=== PATIENT | female | born 1955 | race Caucasian/White ===

== ENCOUNTER → 2017-04-02 | Outpatient (CLI) | payer OTHER ==
[2017-04-02 10:14] LABS: Basophils # (A) 0.1 k/uL (0-0.2); Basophils % (A) 1 %; CH 31.3; CHCM 31.3; Eosinophils # (A) 0.2 k/uL (0-0.7); Eosinophils % (A) 3 %; HCT 45.5 % (34.0-46.0); HDW 2.04; HGB 14.4 gm/dL (11.4-16.0); Luc # (Auto) 0.09; Luc % (Auto) 1; Lymphocytes # (A) 1.6 k/uL (1.0-4.8); Lymphocytes % (A) 20 %; MCH 31.7 pg (25.0-35.0); MCHC 31.6 g/dL (31.0-37.0); MCV 100.4 fL (80.0-100.0); Mean Platelet Volume 7.2; Monocytes # (A) 0.4 k/uL (0-1.0); Monocytes % (A) 5 %; Neutrophils # (A) 5.6 k/uL (1.3-7.7); Neutrophils % (A) 71 %; RBC 4.54 m/uL (3.80-5.40); RDW 13.8 % (11.5-15.5); WBC 7.8 k/uL (3.8-10.6); WBC (Perox) 8.07
[2017-04-02 11:01] LABS: ALT 31 U/L (9-52); AST 27 U/L (14-36); Alkaline Phosphatase 107 U/L (38-126); Anion Gap 6 mmol/L; Blood Urea Nitrogen 14 mg/dL (7-17); Calcium 9.8 mg/dL (8.4-10.2); Carbon Dioxide 29 mmol/L (22-30); Chloride 103 mmol/L (98-107); Cholesterol 166 mg/dL (<200); Glucose 84 mg/dL (74-99); HDL Cholesterol 76 mg/dL (40-60); Non-African American GFR(MDRD) >60 (>60 ml/min/1.73 sqM); Potassium 4.6 mmol/L (3.5-5.1); Sodium 138 mmol/L (137-145); Total Bilirubin 0.8 mg/dL (0.2-1.3); Total Protein 6.7 g/dL (6.3-8.2)
== END | disposition home or self-care (01) ==
LOC: LABWHC1 09:35
PROVIDERS: ATTEND Family Medicine
DX: Z00.00 Encounter for general adult medical examination without abnormal findings (principal)
CPT/HCPCS: 36415; 80053; 80061; 82306; 84443; 85025; 86803

== ENCOUNTER → 2017-06-04 | Outpatient (CLI) | payer OTHER ==
--- NOTE | 2017-06-05 10:16 | MM ---
Reason for exam: screening (asymptomatic). Last mammogram was performed 2 years and 4 months ago. History: Patient is postmenopausal. Family history of breast cancer in mother at age 62. Physical Findings: A clinical breast exam by your physician is recommended on an annual basis and results should be correlated with mammographic findings. MG Screening Mammo w CAD Bilateral CC and MLO view(s) were taken. Prior study comparison: February 16, 2015, mammogram, performed at [facility]. February 09, 2014, mammogram, performed at [facility]. The breast tissue is heterogeneously dense. This may lower the sensitivity of mammography. Finding: There are typically benign round calcifications in both breasts. There is a chronic nodularity in the left breast. There is no discrete abnormality. ASSESSMENT: Benign, BI-RAD 2 RECOMMENDATION: Routine screening mammogram of both breasts in 1 year.
== END | disposition home or self-care (01) ==
LOC: RADMAMWWP 16:35
PROVIDERS: ATTEND Family Medicine
DX: Z12.31 Encounter for screening mammogram for malignant neoplasm of breast (principal)
CPT/HCPCS: 77067

== ENCOUNTER → 2018-06-12 | Outpatient (CLI) | payer OTHER ==
[2018-06-12 11:33] LABS: Basophils # (A) 0.1 k/uL (0-0.2); Basophils % (A) 1 %; Eosinophils # (A) 0.3 k/uL (0-0.7); Eosinophils % (A) 4 %; HCT 48.4 % (34.0-46.0); HGB 14.8 gm/dL (11.4-16.0); Lymphocytes # (A) 1.7 k/uL (1.0-4.8); Lymphocytes % (A) 27 %; MCH 31.2 pg (25.0-35.0); MCHC 30.7 g/dL (31.0-37.0); MCV 101.7 fL (80.0-100.0); Macrocytosis Slight; Mean Platelet Volume 6.1; Monocytes # (A) 0.3 k/uL (0-1.0); Monocytes % (A) 5 %; Neutrophils % (A) 63 %; Platelet Count 308 k/uL (150-450); RBC 4.75 m/uL (3.80-5.40); RDW 12.7 % (11.5-15.5); WBC 6.4 k/uL (3.8-10.6)
[2018-06-12 16:25] LABS: Albumin 4.4 g/dL (3.80-4.90); Albumin/Globulin Ratio 2.1 (1.20-2.10); Anion Gap 9.4 mmol/L (4.00-12.00); Calcium 9.7 mg/dL (8.7-10.3); Carbon Dioxide 29.6 mmol/L (21.6-31.8); Globulin 2.1 g/dL (1.6-3.3); Total Bilirubin 0.6 mg/dL (0.2-1.2); Total Protein 6.5 g/dL (6.2-8.2)
== END | disposition home or self-care (01) ==
LOC: LABWHC1 11:05
PROVIDERS: ATTEND Family Medicine
DX: Z00.00 Encounter for general adult medical examination without abnormal findings (principal)
CPT/HCPCS: 36415; 80053; 80061; 85025

== ENCOUNTER → 2018-06-29 | Outpatient (CLI) | payer OTHER ==
--- NOTE | 2018-06-30 09:56 | MM ---
Reason for exam: screening (asymptomatic). Last mammogram was performed 1 year and 1 month ago. History: Patient is postmenopausal. Family history of breast cancer in mother at age 62. Physical Findings: A clinical breast exam by your physician is recommended on an annual basis and results should be correlated with mammographic findings. MG Screening Mammo w CAD Bilateral CC and MLO view(s) were taken. Prior study comparison: June 04, 2017, bilateral MG screening mammo w CAD. February 16, 2015, mammogram, performed at [facility]. The breast tissue is heterogeneously dense. This may lower the sensitivity of mammography. Stable benign calcifications. There is chronic nodularity bilaterally. No significant changes when compared with prior studies. ASSESSMENT: Benign, BI-RAD 2 RECOMMENDATION: Routine screening mammogram of both breasts in 1 year.
== END | disposition home or self-care (01) ==
LOC: RADMAMWWP 12:31
PROVIDERS: ATTEND Family Medicine
DX: Z12.31 Encounter for screening mammogram for malignant neoplasm of breast (principal)
CPT/HCPCS: 77067

== ENCOUNTER 2019-01-28 08:43 | Inpatient (IN) | payer MEDICARE, OTHER ==
[2019-01-28] MEDS ORDERED: SODIUM CHLORIDE 0.9% 500 ML 500 ML IV STA (08:48)
--- NOTE | 2019-01-28 08:53 | ED ---
General Adult HPI - General Stated complaint: SOB Time Seen by Provider: 01/28/19 08:43 Source: RN notes reviewed - History of Present Illness Initial comments: This is a 63-year-old female presents emergency Department with a complaint of having difficulty breathing. Patient states she is a pack-a-day smoker and drinker at least every other day. Patient states she started on Friday having shortness of breath she went to urgent care today where they gave her breathing treatment and she was only sat 97% on room air; EMS. EMS gave her steroids as well as another breathing treatment she is feeling better but still complains that she short of breath. Patient also complains of chest heaviness which she states has been ongoing as well. Patient denies any fever or chills. Patient states she has a cough but has had no sputum production. Patient denies any abdominal pain patient denies nausea or vomiting. Patient denies any palpitations. Patient denies lightheadedness dizziness or near syncopal episode. Patient denies any leg swelling or calf tenderness. - Related Data Home Medications Medication Instructions Recorded Confirmed Aspirin EC [Ecotrin] 81 mg PO DAILY 09/16/14 01/28/19 Multivitamins, Thera [Theragran] 1 tab PO DAILY 09/16/14 01/28/19 Ascorbic Acid [Vitamin C] 500 mg PO DAILY 01/28/19 01/28/19 D-Methorphan/PE/Acetaminophen 2 tab PO Q4H PRN 01/28/19 01/28/19 [Tylenol Cold Max Day Caplet] Vitamin B Complex 1 cap PO DAILY 01/28/19 01/28/19 Allergies Allergy/AdvReac Type Severity Reaction Status Date / Time No Known Allergies Allergy Verified 01/28/19 09:09 Review of Systems ROS Statement: Those systems with pertinent positive or pertinent negative responses have been documented in the HPI. ROS Other: All systems not noted in ROS Statement are negative. Past Medical History Past Medical History: No Reported History History of Any Multi-Drug Resistant Organisms: None Reported Past Surgical History: No Surgical Hx Reported Additional Past Anesthesia/Blood Transfusion Reaction / Comment(s): NO PREVIOUS ANESTHESIA Past Psychological History: No Psychological Hx Reported Smoking Status: Heavy tobacco smoker Past Alcohol Use History: Occasional Additional Past Alcohol Use History / Comment(s): SMOKES 1 1/2 PPD Past Drug Use History: None Reported - Past Family History Mother Family Medical History: Cancer Additional Family Medical History / Comment(s): BREAST CA Sister(s) Family Medical History: Cancer General Exam - General Exam Comments Initial Comments: GENERAL: Patient is well-developed and well-nourished. Patient is nontoxic and well- hydrated and is in mild distress. ENT: Neck is soft and supple. No significant lymphadenopathy is noted. Oropharynx is clear. Moist mucous membranes. EYES: The sclera were anicteric and conjunctiva were pink and moist. Extraocular movements were intact and pupils were equal round and reactive to light. Eyelids were unremarkable. PULMONARY: Lungs sounds are diminished bilaterally with expiratory wheezing. CARDIOVASCULAR: Patient has a irregular rate and rhythm at a rate of 140 ABDOMEN: Soft and nontender with normal bowel sounds. No palpable organomegaly was noted. There is no palpable pulsatile mass. SKIN: Skin is clear with no lesions or rashes and otherwise unremarkable. NEUROLOGIC: Patient is alert and oriented x3. Cranial nerves II through XII are grossly intact. Motor and sensory are also intact. Normal speech, volume and content. Symmetrical smile. MUSCULOSKELETAL Normal extremities with adequate strength and full range of motion. No lower extremity swelling or edema. No calf tenderness. LYMPHATICS: No significant lymphadenopathy is noted PSYCHIATRIC: Normal psychiatric evaluation. Course Vital Signs 01/28/19 01/28/19 01/28/19 08:47 08:49 08:50 Temperature 98.7 F Pulse Rate 142 H Respiratory 24 Rate Blood Pressure 102/88 102/88 O2 Sat by Pulse 100 98 93 L Oximetry 01/28/19 01/28/19 09:04 09:30 Temperature 98.7 F Pulse Rate 147 H 147 H Respiratory 22 30 H Rate Blood Pressure 127/103 127/103 O2 Sat by Pulse 98 98 Oximetry Medical Decision Making - Medical Decision Making EKG shows atrial fibrillation with rapid ventricular response at 142 bpm QRS is 86 QT interval 316 QTC is 486. Patient's EKG shows no ST segment elevation or depression. CT chest PE shows no acute PE. Patient is atrial fibrillation and was started on Cardizem and placed on hep eliud. I spoke with Dr. Borden she agreed to admit the patient admitted the patient wrote admitting orders I consult cardiology. I continued heparin and Cardizem on the floor as well as albuterol treatments and steroids. - Lab Data Result diagrams: 01/28/19 09:03 01/28/19 09:03 Lab Results 01/28/19 01/28/19 01/28/19 Range/Units 09:03 09:03 09:03 WBC 10.3 (3.8-10.6) k/uL RBC 3.91 (3.80-5.40) m/uL Hgb 12.7 (11.4-16.0) gm/dL Hct 39.7 (34.0-46.0) % MCV 101.5 H (80.0-100.0) fL MCH 32.4 (25.0-35.0) pg MCHC 31.9 (31.0-37.0) g/dL RDW 13.7 (11.5-15.5) % Plt Count 339 (150-450) k/uL Neutrophils % 81 % Lymphocytes % 13 % Monocytes % 4 % Eosinophils % 1 % Basophils % 0 % Neutrophils # 8.3 H (1.3-7.7) k/uL Lymphocytes # 1.4 (1.0-4.8) k/uL Monocytes # 0.4 (0-1.0) k/uL Eosinophils # 0.1 (0-0.7) k/uL Basophils # 0.0 (0-0.2) k/uL Macrocytosis Slight PT (9.0-12.0) sec INR (<1.2) APTT (22.0-30.0) sec D-Dimer (<0.60) mg/L FEU Sodium 140 (137-145) mmol/L Potassium 4.1 (3.5-5.1) mmol/L Chloride 105 (98-107) mmol/L Carbon Dioxide 26 (22-30) mmol/L Anion Gap 9 mmol/L BUN 10 (7-17) mg/dL Creatinine 0.67 (0.52-1.04) mg/dL Est GFR (CKD-EPI)AfAm >90 (>60 ml/min/1.73 sqM) Est GFR (CKD-EPI)NonAf >90 (>60 ml/min/1.73 sqM) Glucose 117 H (74-99) mg/dL Calcium 9.1 (8.4-10.2) mg/dL Magnesium 1.9 (1.6-2.3) mg/dL Total Bilirubin 0.6 (0.2-1.3) mg/dL AST 27 (14-36) U/L ALT 28 (9-52) U/L Alkaline Phosphatase 94 (38-126) U/L Troponin I <0.012 (0.000-0.034) ng/mL Total Protein 6.6 (6.3-8.2) g/dL Albumin 3.9 (3.5-5.0) g/dL Serum Alcohol <10 mg/dL 01/28/19 Range/Units 09:04 WBC (3.8-10.6) k/uL RBC (3.80-5.40) m/uL Hgb (11.4-16.0) gm/dL Hct (34.0-46.0) % MCV (80.0-100.0) fL MCH (25.0-35.0) pg MCHC (31.0-37.0) g/dL RDW (11.5-15.5) % Plt Count (150-450) k/uL Neutrophils % % Lymphocytes % % Monocytes % % Eosinophils % % Basophils % % Neutrophils # (1.3-7.7) k/uL Lymphocytes # (1.0-4.8) k/uL Monocytes # (0-1.0) k/uL Eosinophils # (0-0.7) k/uL Basophils # (0-0.2) k/uL Macrocytosis PT 10.2 (9.0-12.0) sec INR 0.9 (<1.2) APTT 22.9 (22.0-30.0) sec D-Dimer 1.25 H (<0.60) mg/L FEU Sodium (137-145) mmol/L Potassium (3.5-5.1) mmol/L Chloride (98-107) mmol/L Carbon Dioxide (22-30) mmol/L Anion Gap mmol/L BUN (7-17) mg/dL Creatinine (0.52-1.04) mg/dL Est GFR (CKD-EPI)AfAm (>60 ml/min/1.73 sqM) Est GFR (CKD-EPI)NonAf (>60 ml/min/1.73 sqM) Glucose (74-99) mg/dL Calcium (8.4-10.2) mg/dL Magnesium (1.6-2.3) mg/dL Total Bilirubin (0.2-1.3) mg/dL AST (14-36) U/L ALT (9-52) U/L Alkaline Phosphatase (38-126) U/L Troponin I (0.000-0.034) ng/mL Total Protein (6.3-8.2) g/dL Albumin (3.5-5.0) g/dL Serum Alcohol mg/dL Critical Care Time Critical Care Time: Yes Total Critical Care Time: 35 Disposition Clinical Impression: Atrial fibrillation with rapid ventricular response, COPD with acute exacerbation Disposition: ADMITTED IP TO THIS HOSP Referrals: Adrián Farias MD [Primary Care Provider] - 1-2 days Time of Disposition: 10:47
[2019-01-28 09:16] LABS: Basophils % (A) 0 %; Eosinophils # (A) 0.1 k/uL (0-0.7); Eosinophils % (A) 1 %; HCT 39.7 % (34.0-46.0); HGB 12.7 gm/dL (11.4-16.0); Lymphocytes # (A) 1.4 k/uL (1.0-4.8); Lymphocytes % (A) 13 %; MCH 32.4 pg (25.0-35.0); MCHC 31.9 g/dL (31.0-37.0); MCV 101.5 fL (80.0-100.0); Macrocytosis Slight; Mean Platelet Volume 6.7; Monocytes # (A) 0.4 k/uL (0-1.0); Monocytes % (A) 4 %; Neutrophils # (A) 8.3 k/uL (1.3-7.7); Neutrophils % (A) 81 %; Platelet Count 339 k/uL (150-450); RBC 3.91 m/uL (3.80-5.40); RDW 13.7 % (11.5-15.5); WBC 10.3 k/uL (3.8-10.6)
--- NOTE | 2019-01-28 09:21 | XR ---
EXAMINATION TYPE: XR chest 2V DATE OF EXAM: 01/28/2019 COMPARISON: 03/31/2015 TECHNIQUE: PA and lateral views submitted. HISTORY: Shortness of breath FINDINGS: The lungs are clear and there is no pneumothorax, pleural effusion, or focal pneumonia. Coarsened i nterstitium noted with diffuse interstitial pattern. No pneumothorax. Arthropathy of the shoulders. A therosclerotic change aorta. IMPRESSION: 1. Diffuse interstitial pattern most typical of pulmonary fibrosis. Superimposed pneumonitis not excl uded correlate clinically.
[2019-01-28 09:24] LABS: ALT 28 U/L (9-52); AST 27 U/L (14-36); African American GFR (CKD) >90 (>60 ml/min/1.73 sqM); Albumin 3.9 g/dL (3.5-5.0); Alcohol <10 mg/dL; Alkaline Phosphatase 94 U/L (38-126); Anion Gap 9 mmol/L; Blood Urea Nitrogen 10 mg/dL (7-17); Calcium 9.1 mg/dL (8.4-10.2); Carbon Dioxide 26 mmol/L (22-30); Chloride 105 mmol/L (98-107); Glucose 117 mg/dL (74-99); Magnesium 1.9 mg/dL (1.6-2.3); Potassium 4.1 mmol/L (3.5-5.1); Sodium 140 mmol/L (137-145); Total Bilirubin 0.6 mg/dL (0.2-1.3); Total Protein 6.6 g/dL (6.3-8.2)
[2019-01-28 09:29] LABS: INR 0.9 (<1.2); Partial Thromboplastin Time 22.9 sec (22.0-30.0); Prothrombin Time 10.2 sec (9.0-12.0)
[2019-01-28] MEDS ORDERED: DILTIAZEM DRIP BOLUS FROM BAG 1 MG SOLN IV ONE ×2 (09:35→12:35)
[2019-01-28 09:39] LABS: D-Dimer 1.25 mg/L FEU (<0.60)
[2019-01-28] MEDS ORDERED: DILTIAZEM 125 MG in SODIUM CHLORIDE 0.9% 100 ML IV SCH ×2 (09:45→12:45)
[2019-01-28] MEDS ORDERED: HEPARIN SODIUM,PORCINE 5,000 UNIT/ML 1 ML VIAL IV ONE (09:46)
[2019-01-28] MEDS ORDERED: HEPARIN SOD,PORK IN 0.45% NACL 25,000 UNIT in 0.45% NACL 1 250ML.BAG IV SCH (10:00)
--- NOTE | 2019-01-28 10:36 | CT ---
EXAMINATION TYPE: CT chest angio for PE DATE OF EXAM: 01/28/2019 COMPARISON: HISTORY: Trouble breathing CT DLP: 296.1 mGycm CONTRAST: CT chest with contrast and 3D reconstruction with MIP imaging is performed with IV Contrast, patient injected with 100 mL of Isovue 370. Contrast-enhanced CT of the chest was performed through the course of the pulmonary arteries with nakul g and mediastinal window settings submitted. 3D reconstruction with MIP imaging was also performed. PULMONARY ARTERIES: The pulmonary arteries and their major tributaries are patent. I do not see raven dence for sizable filling defect to suggest pulmonary embolic process. LUNGS: Small bilateral pleural effusions noted. Pulmonary venous congestion noted without overt failu re. Underlying emphysematous change. MEDIASTINUM: Thoracic aorta is of normal caliber,however, evaluation is limited given timing of the contrast bolus. If there is concern for thoracic aortic pathology consider EDSON. Correlate clinicall y . The heart is enlarged. No evidence for mediastinal mass. No mediastinal lymph nodes greater gary n 1cm. HILAR STRUCTURES: No evidence for mass. No hilar lymph nodes greater than 1 cm. UPPER ABDOMEN: No significant abnormality is seen. IMPRESSION: 1. No evidence for Pulmonary embolism at this time. 2. Small pleural effusions, cardiomegaly and pulmonary venous congestion.
[2019-01-28] MEDS: IPRATROPIUM-ALBUTEROL 3 ML NEB INHALATION PRN ×2 (11:14→16:19)
[2019-01-28] MEDS ORDERED: DEXTROSE 5% IN WATER 100 ML with AMIODARONE 300 MG IV ONE (15:00)
[2019-01-28] MEDS: METOPROLOL TARTRATE 25 MG TAB PO SCH ×2 (15:04→21:13)
[2019-01-28] MEDS: methylPREDNISolone SOD SUCCI 125 MG/2 ML VIAL IV SCH ×2 (15:04→17:03)
[2019-01-28] MEDS ORDERED: AMIODARONE 360 MG in DEXTROSE 5% IN WATER 200 ML IV ONE ×2 (16:00)
[2019-01-28] MEDS: IPRATROPIUM 0.5 MG/2.5 ML NEBU INHALATION PRN ×2 (16:30→20:09)
[2019-01-28] MEDS ORDERED: ACETAMINOPHEN TAB 325 MG TAB PO PRN (16:32)
[2019-01-28 16:59] LABS: Glucose,Whole Blood 161 mg/dL (75-99)
[2019-01-28] MEDS: INSULIN ASPART (NovoLOG) 100 UNIT/ML VIAL SQ SCH ×2 (17:03→21:12)
[2019-01-28] MEDS: APIXABAN 5 MG TAB PO SCH (17:03)
[2019-01-28] MEDS ORDERED: BUDESONIDE 0.5 MG/2 ML NEBU INHALATION SCH (20:00)
[2019-01-28 21:00] LABS: Glucose,Whole Blood 144 mg/dL (75-99)
[2019-01-28] MEDS ORDERED: APIXABAN 5 MG TAB PO SCH (21:00)
[2019-01-28] MEDS: FUROSEMIDE 10 MG/ML 2 ML VIAL IV SCH (21:11)
--- NOTE | 2019-01-28 22:00 | CONS ---
CONSULTATION Mrs. Menon is a 63-year-old female who is seen for cardiac evaluation. This patient came to the emergency room because she was having difficulty in breathing. She says she has been having heart palpitations for the last couple of days and shortness of breath. The patient has some non-productive cough. She did not really complain of any chest pain. She felt that her heart was racing. Patient was found in the emergency room to be in atrial fibrillation with rapid ventricular response. When the EMS arrived, her oxygen saturation was 97%. The patient does smoke about 1 pack per day and drinks at least every other day. There is no history of prior myocardial infarction, angina, diabetes or hypertension. PAST MEDICAL HISTORY: Includes no history of any major surgeries. REVIEW OF THE SYSTEM: Unremarkable. SOCIAL HISTORY: Patient is a heavy tobacco smoker. PHYSICAL EXAMINATION: Physical examination in the emergency room revealed patient's heart rate to be in the range of 150. Blood pressure was 127/103 mmHg. HEENT examination is negative. Neck is supple. Jugular venous pressure is elevated. Both the carotid pulses are felt. There is no bruit. Chest is symmetrical. Heart the PMI is not felt. First and second heart sounds are normal. No significant murmurs are noted. Lungs examination revealed bilateral few basal rales. ABDOMEN: Soft, probably liver is enlarged 2 fingerbreadths below the right costal margin. Peripheral pulsations are 2+. Electrolytes are normal. The patient's electrolytes are normal. D-dimer was 125 2. First troponin is less than 0.012 and the TSH is 1.790. Patient's echocardiogram reveals normal left ventricular systolic function with possible small area of inferior basal hypokinesia. Chest x-ray is suggestive of congestive cardiac failure. FINAL IMPRESSION: This patient is admitted with atrial fibrillation with a rapid ventricular response. Chest x-ray suggestive of associated mild heart failure. CT scan is negative for pulmonary embolism and suggest pulmonary vascular congestion. The patient's overall normal left ventricular systolic function was normal. The patient received Cardizem bolus and drip in the emergency room without any significant effect on the heart rate. The patient received additional bolus of Cardizem and increased the drip to 10 mg/minute, but patient persists to be in rapid rate. In view of that, we will start the patient on IV Cardizem and start the Lopressor 25 mg b.i.d. We will start the patient on p.o. Eliquis 5 mg b.i.d. Depending upon the response, further recommendations will be made. MMODL / IJN: [id number] /
[2019-01-28] MEDS: AMIODARONE 300 MG in DEXTROSE 5% IN WATER 250 ML IV SCH ×2 (22:37)
[2019-01-28] MEDS: methylPREDNISolone SOD SUCCI 40 MG/ML 1 ML VIAL IV SCH (23:06)
[2019-01-28] MEDS: MELATONIN 3 MG TABLET PO PRN (23:06)
--- NOTE | 2019-01-29 01:03 | HP ---
HISTORY AND PHYSICAL DATE OF ADMISSION: January 28, 2019. PRESENTING COMPLAINT: Short of breath, heart racing. HISTORY OF PRESENTING COMPLAINT: This is a pleasant 63-year-old patient of Dr. Farias. The patient is a long-standing smoker. The patient presents with progressive short of breath, some wheezing, has a slight cough with clear sputum, but she is very short of breath. Also having some palpitations. No chest pain per se. Decided to present to the ER. The patient is found to be in atrial fibrillation with rapid ventricular rate. Chest x-ray also showed some fluid overload. The patient is put on a Cardizem drip. Cardiology was consulted. Also put on bronchodilators. The patient's significant other is at the bedside. The patient is still visibly short of breath at rest. REVIEW OF SYSTEMS: CONSTITUTIONAL: Tired. HEENT: None. RESPIRATORY: As above. CARDIOVASCULAR as above. GASTROINTESTINAL: Heartburn. GENITOURINARY: None. MUSCULOSKELETAL none. DERMATOLOGICAL, HEMATOLOGIC, LYMPHATIC: none. PSYCHIATRY none. NEUROLOGICAL none. PAST MEDICAL HISTORY: GERD. PAST SURGICAL HISTORY: Tubal ligation, colonoscopy. SOCIAL HISTORY: Lives with significant other. Smoking for close to 50 years, a pack a day. Drinks 2 gin and tonic at night. Occasionally marijuana. FAMILY HISTORY: Diabetes and breast cancer. HOME MEDICATIONS: Vitamin B complex 1 capsule p.o. daily, Theragran 1 tablet p.o. daily, Tylenol cold 2 tablets q.4 p.r.n., Aspirin 81 mg daily and Vitamin C 500 mg p.o. daily. ALLERGIES: None. PHYSICAL EXAMINATION: VITAL SIGNS: Vital signs on presentation: Temperature 98.7, pulse 142, respiration 24, blood pressure 102/88, pulse ox 98% on 4 L. GENERAL APPEARANCE: Slightly anxious. EYES: Pupils equal. Conjunctivae normal. HEENT: External appearance of nose and ears normal. Oral cavity normal. Neck: JVD unable to assess. Mass not palpable. RESPIRATORY: Effort increased, accessory muscles are working. Patient not able to speak in full sentences. Diminished breath sounds. Prolonged expiration. Some basal crackles. CARDIOVASCULAR: Heart sounds irregular. No edema. ABDOMEN: Soft, nontender. Liver and spleen not palpable. Lymphatics: No lymph nodes palpable in the neck, axillae or groin. Psychiatry alert, oriented x3. Mood and affect slightly anxious. NEUROLOGICAL: Pupils equal. Cranial nerves grossly intact. Power and sensation grossly intact. INVESTIGATIONS: White count 10.3, hemoglobin 12.7, potassium 4.1, BUN 10, creatinine 0.67 Accu-Cheks 101, 167, 144. Troponin less than 0.012. ProBNP 3540. TSH is 1.9. EKG tracing personally reviewed by me shows atrial fibrillation with rapid ventricular rate. Chest x-ray film personally reviewed by me shows borderline cardiomegaly and some pulmonary edema. ASSESSMENT: 1. Acute severe chronic obstructive pulmonary disease exacerbation in a current smoker. 2. Chronic nicotine dependence. Patient is an active cigarette smoker. 3. New onset atrial fibrillation with rapid ventricular rate. 4. Acute congestive heart failure exacerbation, ejection fraction unknown. 5. Gastroesophageal reflux disease. PLAN: Patient was seen earlier by Cardiology, who put him on amiodarone and also started the patient on Eliquis. Patient also was started on bronchodilators, inhaled and IV steroids. Lovenox. The patient is already on Eliquis, has helped, was DVT prophylaxis II. Care was discussed at length with the patient and significant other at the bedside. Smoking cessation counseling. This was done with the patient. Nicotine patch has been given. More than 3 minutes was spent on this aspect of the case. Copy to Dr. Farias. MMCONOR / BURAK: [id number] /
[2019-01-29] MEDS: NICOTINE 21MG/24HR PATCH TRANSDERM SCH ×2 (05:41→09:00)
[2019-01-29 06:11] LABS: Glucose,Whole Blood 123 mg/dL (75-99)
[2019-01-29] MEDS: INSULIN ASPART (NovoLOG) 100 UNIT/ML VIAL SQ SCH ×4 (06:21→21:50)
[2019-01-29] MEDS: BUDESONIDE 1 MG/2 ML NEBU INHALATION SCH ×2 (06:28→19:32)
[2019-01-29] MEDS: IPRATROPIUM-ALBUTEROL 3 ML NEB INHALATION PRN ×3 (06:28→15:45)
[2019-01-29] MEDS: METOPROLOL TARTRATE 25 MG TAB PO SCH (09:00)
[2019-01-29] MEDS: FUROSEMIDE 10 MG/ML 2 ML VIAL IV SCH (09:00)
[2019-01-29] MEDS: APIXABAN 5 MG TAB PO SCH ×2 (09:00→20:18)
[2019-01-29] MEDS: methylPREDNISolone SOD SUCCI 40 MG/ML 1 ML VIAL IV SCH ×3 (09:00→22:58)
[2019-01-29] MEDS: AMIODARONE 300 MG in DEXTROSE 5% IN WATER 250 ML IV SCH ×2 (09:18)
--- NOTE | 2019-01-29 10:34 | ECHOF ---
Referral Reason:LV fxn MEASUREMENTS -------- HEIGHT: 162.6 cm WEIGHT: 57.2 kg BP: 116/94 RVIDd: 2.1 cm (< 3.3) IVSd: 1.3 cm (0.6 - 1.1) LVIDd: 2.4 cm (3.9 - 5.3) LVPWd: 1.2 cm (0.6 - 1.1) IVSs: 1.5 cm LVIDs: 2.0 cm LVPWs: 1.7 cm LA Diam: 3.0 cm (2.7 - 3.8) LAESV Index (A-L): 30.00 ml/m Ao Diam: 3.2 cm (2.0 - 3.7) AV Cusp: 1.6 cm (1.5 - 2.6) MV EXCURSION: 16.356 mm (> 18.000) MV EF SLOPE: 306 mm/s (70 - 150) EPSS: 0.2 cm AV maxP.52 mmHg AV meanP.16 mmHg RAP: 15.00 mmHg RVSP: 55.10 mmHg FINDINGS -------- Atrial fibrillation. This was a technically adequate study. The left ventricular size is normal. There is mild concentric left ventricular hypertrophy. Overa ll left ventricular systolic function is normal with, an EF between 55 - 60 %. Basal inferior LV wa ll motion is hypokinetic. Basal inferoseptal LV wall motion is hypokinetic. The right ventricle is normal in size. LA is midly dilated 29-33ml/m2. The right atrium is normal in size. Interatrial and interventricular septum intact. There is mild aortic valve sclerosis. There is mild aortic stenosis present. Peak/mean gradient a cross the Aortic Valve is 15.52mmHg / 6.16mmHg. The mitral valve leaflets are mildly thickened. Mild mitral annular calcification present. Modera te mitral regurgitation is present. Mild tricuspid regurgitation present. There is moderate to severe pulmonary hypertension. The rig ht ventricular systolic pressure, as measured by Doppler, is 55.10mmHg. Trace/mild (physiologic) pulmonic regurgitation. The aortic root size is normal. The inferior vena cava is dilated with poor inspiratory collapse which is consistent with estimated r ight atrial pressure of 15 mmHg. There is no pericardial effusion. CONCLUSIONS -------- 1. Atrial fibrillation. 2. This was a technically adequate study. 3. The left ventricular size is normal. 4. There is mild concentric left ventricular hypertrophy. 5. Overall left ventricular systolic function is normal with, an EF between 55 - 60 %. 6. Basal inferior LV wall motion is hypokinetic. 7. Basal inferoseptal LV wall motion is hypokinetic. 8. The right ventricle is normal in size. 9. LA is midly dilated 29-33ml/m2. 10. The right atrium is normal in size. 11. Interatrial and interventricular septum intact. 12. There is mild aortic valve sclerosis. 13. There is mild aortic stenosis present. 14. Peak/mean gradient across the Aortic Valve is 15.52mmHg / 6.16mmHg. 15. The mitral valve leaflets are mildly thickened. 16. Mild mitral annular calcification present. 17. Moderate mitral regurgitation is present. 18. Mild tricuspid regurgitation present. 19. There is moderate to severe pulmonary hypertension. 20. The right ventricular systolic pressure, as measured by Doppler, is 55.10mmHg. 21. Trace/mild (physiologic) pulmonic regurgitation. 22. The aortic root size is normal. 23. The inferior vena cava is dilated with poor inspiratory collapse which is consistent with estimat ed right atrial pressure of 15 mmHg. 24. There is no pericardial effusion. [employer]: Elena Chan RDCS
[2019-01-29 11:46] LABS: Glucose,Whole Blood 148 mg/dL (75-99)
[2019-01-29] MEDS: AMIODARONE 200 MG TAB PO SCH ×2 (12:50→20:18)
--- NOTE | 2019-01-29 15:47 | P.PN ---
Subjective Progress Note Date: 01/29/19 This is a 63-year-old female who presented to the emergency room with symptoms of difficulty in breathing. She also noticed himself to be having palpitations with the associated shortness of breath. She was found in the emergency room to be in atrial fibrillation with rapid ventricular response. Patient does smoke a pack of cigarettes per day, no history of diabetes or hypertension. At the time of her examination today, patient continues to be in atrial fibrillation her heart rate is in the low 100 range, we will increase her dose of Lasix to 40 mg one tablet by mouth twice a day, IV amiodarone has infuse, we will start the patient on 400 mg by mouth amiodarone twice a day. Echo cardiac gram with Doppler study was performed which revealed a normal left ventricular systolic function with moderate mitral regurgitation. Moderate to severe pulmonary hypertension. Objective - Vital Signs Vital signs: Vital Signs Temp 97.6 F 01/29/19 15:33 Pulse 117 H 01/29/19 15:33 Resp 20 01/29/19 15:33 BP 121/62 01/29/19 15:33 Pulse Ox 95 01/29/19 15:33 Intake & Output 01/28/19 01/29/19 01/29/19 18:59 06:59 18:59 Intake Total 1106.06 245 970 Output Total 800 800 Balance 1106.06 -555 170 Weight 57.153 kg 59.3 kg Intake: IV 40 Invasive Line 1 10 Invasive Line 2 30 Intake, IV Titration 26.06 125 250 Amount Amiodarone 300 mg In 125 250 Dextrose 5% in Water 250 ml @ 0.5 MG/MIN 25 mls/hr IV .Q10H PALLAVI Rx#: [id number] Heparin Sod,Pork in 0.45% 26.06 NaCl 25,000 unit In 0.45 % NaCl 1 250ml.bag @ 12 UNITS/KG/HR 6.858 mls/hr IV .Q24H PALLAVI Rx#: [id number] Oral 1040 120 720 Output: Urine 800 800 Other: Voiding Method Toilet # Voids 1 2 2 # Bowel Movements 0 - Exam PHYSICAL EXAMINATION: GENERAL: 63-year-old female in no acute distress at the time of my examination HEENT: Head is atraumatic, normocephalic. Pupils equal, round. Sclera anicteric. Conjunctiva are clear. Mucous membranes of the mouth are moist. Neck is supple. There is no elevated jugular venous pressure.] bruit is heard. HEART EXAMINATION: Heart S1, S2 systolic murmur is heard normal. . CHEST EXAMINATION: Lungs are clear to auscultation and precussion. No chest wall tenderness is noted on palpation or with deep breathing. ABDOMEN: Soft, nontender. Bowel sounds are heard. Positive organomegaly noted. EXTREMITIES: 2+ peripheral pulses with no evidence of peripheral edema and no calf tenderness noted. NEUROLOGIC patient is awake, alert and oriented ?-3. . - Labs CBC & Chem 7: 01/28/19 09:03 01/28/19 09:03 Labs: Abnormal Lab Results - Last 24 Hours (Table) 01/28/19 01/28/19 01/29/19 Range/Units 16:57 20:58 06:09 POC Glucose (mg/dL) 161 H 144 H 123 H (75-99) mg/dL 01/29/19 Range/Units 11:44 POC Glucose (mg/dL) 148 H (75-99) mg/dL Assessment and Plan Plan: Assessment and plan #1 persistent atrial fibrillation #2 diastolic congestive heart failure acute on chronic, LV function normal #3 nicotine dependence #4 EtOH use Plan We will start the patient on oral amiodarone 400 mg one tablet by mouth twice a day, increase the dose of Lasix to 40 mg IV twice a day, continue to monitor the intake and output along with daily weights, and daily lytes BUN and creatinine. DNP note has been reviewed, I agree with a documented findings and plan of care. Patient was seen and examined.
--- NOTE | 2019-01-29 16:55 | CDI ---
Documentation Clarification Form Date: 01/29/2019 4:43:49 PM From: Ryanne Blake RN, CCDS Admit Date: 01/29/2019 11:44:00 AM Patient Name: Aide Menon Visit Number: [id number] ATTENTION: The Clinical Documentation Specialists (CDI) and [facility] Coding Staff appreciate your assistance in clarifying documentation. Please respond to the clarification below the line at the bottom and electronically sign. The CDI & [facility] Coding staff will review the response and follow-up if needed. Please note: Queries are made part of the Legal Health Record. If you have any questions, please contact the author of this message via ITS. Dr. Kt Woodard History/Risk Factors: COPD, CHF, Atrial Fib, GERD Tobacco use: current smoker Home oxygen: none Clinical Indicators: 01/28/19 H&P: "The patient is still visibly short of breath at rest" Vital signs: Temp 98.7, HR 142, RR 24, B/P 102/88, SPO2 98% 4L NC Pulse oximetry:98% 4L NC Lung/Breathing assessment: "The patient is a long- standing smoker. The patient presents with progressive short of breath, some wheezing, has a slight cough with clear sputum, but she is very short of breath." Treatment: Breathing tx: Duoneb QID, Pulmicort BID, Atrovent QID PRN Lasix 40mg IVP Q 12 hrs Tapering Dose IVP Solumedrol Pulse ox per unit protocol O2: maintained on 4L nasal cannula In your professional opinion, can you please clarify if these findings signify one of the following conditions? Acuity Acute Chronic Acute on Chronic Specificity Respiratory Failure (further specify (if known)): With hypercapnia? (pCO2 >50 and pH <7.35) With hypoxia? (pO2 <60 mm Hg or SpO2 <91% on room air) Respiratory Distress Respiratory Insufficiency Other Diagnosis, please specify Unable to determine (Last Revision: August 2017) no acute respiratory failure MTDD
[2019-01-29 16:59] LABS: Glucose,Whole Blood 137 mg/dL (75-99)
[2019-01-29] MEDS: METOPROLOL TARTRATE 50 MG TAB PO SCH (18:25)
[2019-01-29] MEDS: FUROSEMIDE 10 MG/ML 4 ML VIAL IV SCH (20:19)
[2019-01-29 20:30] LABS: Glucose,Whole Blood 165 mg/dL (75-99)
[2019-01-29 21:50] LABS: Glucose,Whole Blood 209 mg/dL (75-99)
--- NOTE | 2019-01-29 22:32 | P.PN ---
Progress Note - Text Progress Note Date: 01/29/19 Presenting complaint: Short of breath Interval history: Patient blood with severe COPD exacerbation. Also atrial fibrillation with a rapid ventricular rate. And also found to be in CHF exacerbation. Patient is a smoker. Today-wheezing is a bit better., Still short of breath. Did eat some food. Sitting up. With nasal cannula. Review of systems: Was done for constitutional, cardiovascular, GI, pulmonary. relevant finding as above Active Medications Acetaminophen (Tylenol Tab) 650 mg PO Q6HR PRN PRN Reason: Fever and/ or Pain Last Admin: 01/28/19 17:03 Dose: 650 mg Documented by: Albuterol/Ipratropium (Duoneb 0.5 Mg-3 Mg/3 Ml Soln) 3 ml INHALATION RT-QID PRN PRN Reason: Shortness Of Breath Or Wheezing Last Admin: 01/29/19 15:45 Dose: 3 ml Documented by: Amiodarone HCl (Cordarone) 400 mg PO BID [facility] Last Admin: 01/29/19 20:18 Dose: 400 mg Documented by: Apixaban (Eliquis) 5 mg PO BID [facility] Last Admin: 01/29/19 20:18 Dose: 5 mg Documented by: Budesonide (Pulmicort) 1 mg INHALATION RT-BID [facility] Last Admin: 01/29/19 19:32 Dose: 1 mg Documented by: Furosemide (Lasix) 40 mg IV Q12HR [facility] Last Admin: 01/29/19 20:19 Dose: 40 mg Documented by: Insulin Aspart (Novolog) 0 unit SQ [facility]; Protocol Last Admin: 01/29/19 21:50 Dose: 6 unit Documented by: Ipratropium [place] (Atrovent Nebulized) 0.5 mg INHALATION RT-QID PRN PRN Reason: Shortness Of Breath Or Wheezing Last Admin: 01/28/19 20:09 Dose: 0.5 mg Documented by: Melatonin (Melatonin) 3 mg PO HS PRN PRN Reason: Insomnia Last Admin: 01/28/19 23:06 Dose: 3 mg Documented by: Methylprednisolone Sodium Succinate (Solu-Medrol) 40 mg IV Q8HR [facility] Last Admin: 01/29/19 17:24 Dose: 40 mg Documented by: Metoprolol Tartrate (Lopressor) 50 mg PO BID [facility] Last Admin: 01/29/19 18:25 Dose: 50 mg Documented by: Nicotine (Habitrol 21mg/24hr Patch) 1 patch TRANSDERM DAILY [facility] Last Admin: 01/29/19 09:00 Dose: 1 patch Documented by: Spironolactone (Aldactone) 25 mg PO DAILY [facility] Physical examination: VITAL SIGNS: 98, 112, 20, 139 with 77, 95% on 4 L GENERAL: Propped up, still short of breath at rest. EYES: Pupils equal. Conjunctiva normal. HEENT: External appearance of nose and ears normal, oral cavity grossly normal. NECK: JVD not raised; masses not palpable. HEART: Heart sounds irregular; no edema. LUNGS:[ Respiratory rate increased, diminished breath sounds prolonged expiration, short of breath at rest not unable to speak in full sentences. ABDOMEN: Soft, nontender, liver spleen not palpable, no masses palpable. PSYCH: [Alert and oriented x3; mood and affect anxious. Investigations: Accu-Cheks noted 2-D echo-EF 55-60%, wall motion abnormality, moderate mitral regurgitation, moderate to severe pulmonary hypertension Assessment: -Acute severe COPD exacerbation in a current smoker, slow to respond -Chronic nicotine dependence patient cigarette smoker -New onset atrial fibrillation with rapid ventricular rate, still rate uncontrolled -Acute congestive heart failure exacerbation, from diastolic dysfunction EF 55-6 0% -Wall motion abnormality on the 2-D echo patient will need cardiac catheterization at some point -Moderate mitral regurgitation, nontraumatic -Moderate to severe secondary probably hypertension due to COPD -GERD Plan: Patient was started on oral amiodarone by cardiology. Keep on IV Lasix. Continue with bronchodilators steroids in distress. Care was discussed with the patient.
[2019-01-29] MEDS: MELATONIN 3 MG TABLET PO PRN (22:58)
[2019-01-30 06:24] LABS: Glucose,Whole Blood 140 mg/dL (75-99)
[2019-01-30] MEDS: INSULIN ASPART (NovoLOG) 100 UNIT/ML VIAL SQ SCH ×4 (06:41→21:32)
[2019-01-30] MEDS: IPRATROPIUM-ALBUTEROL 3 ML NEB INHALATION PRN ×3 (07:20→19:34)
[2019-01-30] MEDS: BUDESONIDE 1 MG/2 ML NEBU INHALATION SCH ×2 (07:20→19:34)
[2019-01-30] MEDS: NICOTINE 21MG/24HR PATCH TRANSDERM SCH (09:26)
[2019-01-30] MEDS: AMIODARONE 200 MG TAB PO SCH ×2 (09:26→20:40)
[2019-01-30] MEDS: methylPREDNISolone SOD SUCCI 40 MG/ML 1 ML VIAL IV SCH ×2 (09:26→20:40)
[2019-01-30] MEDS: APIXABAN 5 MG TAB PO SCH ×2 (09:27→20:40)
[2019-01-30] MEDS: SPIRONOLACTONE 25 MG TAB PO SCH (09:28)
[2019-01-30] MEDS: METOPROLOL TARTRATE 50 MG TAB PO SCH ×2 (09:28→20:40)
[2019-01-30] MEDS: FUROSEMIDE 10 MG/ML 4 ML VIAL IV SCH (09:28)
[2019-01-30 12:35] LABS: Glucose,Whole Blood 147 mg/dL (75-99)
--- NOTE | 2019-01-30 13:07 | P.PN ---
Subjective Progress Note Date: 01/30/19 This is a 63-year-old female who presented to the emergency room with symptoms of difficulty in breathing. She also noticed himself to be having palpitations with the associated shortness of breath. She was found in the emergency room to be in atrial fibrillation with rapid ventricular response. Patient does smoke a pack of cigarettes per day, no history of diabetes or hypertension. At the time of her examination today, patient continues to be in atrial fibrillation her heart rate is in the low 100 range, we will increase her dose of Lasix to 40 mg one tablet by mouth twice a day, IV amiodarone has infuse, we will start the patient on 400 mg by mouth amiodarone twice a day. Echo cardiac gram with Doppler study was performed which revealed a normal left ventricular systolic function with moderate mitral regurgitation. Moderate to severe pulmonary hypertension. 01/30/2019 A shunt was seen and examined this morning feels much better overall. Blood pressure 130/70, heart rate remaining mostly in the 1 teens, 90s, 95% on room air. We'll continue the amiodarone at 400 mg one tablet by mouth twice a day along with the Eliquis, discontinue the IV Lasix today and put the patient on oral diuretics, continue metoprolol and Aldactone. Objective - Vital Signs Vital signs: Vital Signs Temp 98.0 F 01/30/19 08:00 Pulse 121 H 01/30/19 12:00 Resp 16 01/30/19 12:00 BP 130/75 01/30/19 12:00 Pulse Ox 95 01/30/19 12:00 Intake & Output 01/29/19 01/30/19 01/30/19 18:59 06:59 18:59 Intake Total 970 480 Output Total 1700 1000 Balance -730 -1000 480 Weight 58.4 kg Intake: Intake, IV Titration 250 Amount Amiodarone 300 mg In 250 Dextrose 5% in Water 250 ml @ 0.5 MG/MIN 25 mls/hr IV .Q10H [facility] Rx#: [id number] Oral 720 480 Output: Urine 1700 1000 Other: Voiding Method Toilet # Voids 2 2 - Exam PHYSICAL EXAMINATION: GENERAL: 63-year-old female in no acute distress at the time of my examination HEENT: Head is atraumatic, normocephalic. Pupils equal, round. Sclera anicteric. Conjunctiva are clear. Mucous membranes of the mouth are moist. Neck is supple. There is no elevated jugular venous pressure.] bruit is heard. HEART EXAMINATION: Heart S1, S2 systolic murmur is heard normal. . CHEST EXAMINATION: Lungs are clear to auscultation and precussion. No chest wall tenderness is noted on palpation or with deep breathing. ABDOMEN: Soft, nontender. Bowel sounds are heard. Positive organomegaly noted. EXTREMITIES: 2+ peripheral pulses with no evidence of peripheral edema and no calf tenderness noted. NEUROLOGIC patient is awake, alert and oriented ?-3. . - Labs CBC & Chem 7: 01/28/19 09:03 01/28/19 09:03 Labs: Abnormal Lab Results - Last 24 Hours (Table) 01/29/19 01/29/19 01/29/19 Range/Units 16:57 20:29 21:47 POC Glucose (mg/dL) 137 H 165 H 209 H (75-99) mg/dL 01/30/19 01/30/19 Range/Units 06:22 11:34 POC Glucose (mg/dL) 140 H 147 H (75-99) mg/dL Assessment and Plan Plan: Assessment and plan #1 persistent atrial fibrillation #2 diastolic congestive heart failure acute on chronic, LV function normal #3 nicotine dependence #4 EtOH use Plan We will continue with the amiodarone at 400 mg twice a day, continue anticoagulation, change Lasix over to oral from tomorrow morning. DNP note has been reviewed, I agree with a documented findings and plan of care. Patient was seen and examined.
--- NOTE | 2019-01-30 15:46 | P.PN ---
Progress Note - Text Progress Note Date: 01/30/19 Presenting complaint: Short of breath Interval history: Patient blood with severe COPD exacerbation. Also atrial fibrillation with a rapid ventricular rate. And also found to be in CHF exacerbation. Patient is a smoker. Today-breathing somewhat better. Less wheezing. No chest pain. Did tolerate her diet. Sitting up in bed. Review of systems: Was done for constitutional, cardiovascular, GI, pulmonary. relevant finding as above Active Medications Acetaminophen (Tylenol Tab) 650 mg PO Q6HR PRN PRN Reason: Fever and/ or Pain Last Admin: 01/28/19 17:03 Dose: 650 mg Documented by: Albuterol/Ipratropium (Duoneb 0.5 Mg-3 Mg/3 Ml Soln) 3 ml INHALATION RT-QID PRN PRN Reason: Shortness Of Breath Or Wheezing Last Admin: 01/30/19 11:21 Dose: 3 ml Documented by: Amiodarone HCl (Cordarone) 400 mg PO BID [facility] Last Admin: 01/30/19 09:26 Dose: 400 mg Documented by: Apixaban (Eliquis) 5 mg PO BID [facility] Last Admin: 01/30/19 09:27 Dose: 5 mg Documented by: Budesonide (Pulmicort) 1 mg INHALATION RT-BID [facility] Last Admin: 01/30/19 07:20 Dose: 1 mg Documented by: Furosemide (Lasix) 40 mg PO BID@0900,1600 [facility] Insulin Aspart (Novolog) 0 unit SQ ACHS [facility]; Protocol Last Admin: 01/30/19 12:54 Dose: 2 unit Documented by: Ipratropium [place] (Atrovent Nebulized) 0.5 mg INHALATION RT-QID PRN PRN Reason: Shortness Of Breath Or Wheezing Last Admin: 01/28/19 20:09 Dose: 0.5 mg Documented by: Melatonin (Melatonin) 3 mg PO HS PRN PRN Reason: Insomnia Last Admin: 01/29/19 22:58 Dose: 3 mg Documented by: Methylprednisolone Sodium Succinate (Solu-Medrol) 40 mg IV Q8HR [facility] Last Admin: 01/30/19 09:26 Dose: 40 mg Documented by: Metoprolol Tartrate (Lopressor) 50 mg PO BID [facility] Last Admin: 01/30/19 09:28 Dose: 50 mg Documented by: Nicotine (Habitrol 21mg/24hr Patch) 1 patch TRANSDERM DAILY [facility] Last Admin: 01/30/19 09:26 Dose: 1 patch Documented by: Spironolactone (Aldactone) 25 mg PO DAILY [facility] Last Admin: 01/30/19 09:28 Dose: 25 mg Documented by: Physical examination: VITAL SIGNS: 98, 111, 16, 124/72, 97% on 3 L GENERAL: Propped up, still short of breath at rest. EYES: Pupils equal. Conjunctiva normal. HEENT: External appearance of nose and ears normal, oral cavity grossly normal. NECK: JVD not raised; masses not palpable. HEART: Heart sounds irregular; no edema. LUNGS:[ Respiratory rate increased, diminished breath sounds prolonged expiration, basilar crackles ABDOMEN: Soft, nontender, liver spleen not palpable, no masses palpable. PSYCH: [Alert and oriented x3; mood and affect anxious. Investigations: Accu-Cheks noted 2-D echo-EF 55-60%, wall motion abnormality, moderate mitral regurgitation, moderate to severe pulmonary hypertension Assessment: -Acute severe COPD exacerbation in a current smoker, slow to respond -Chronic nicotine dependence patient cigarette smoker -New onset atrial fibrillation with rapid ventricular rate, still rate uncontrolled -Acute congestive heart failure exacerbation, from diastolic dysfunction EF 55- 60% -Wall motion abnormality on the 2-D echo patient will need cardiac catheterization at some point -Moderate mitral regurgitation, nontraumatic -Moderate to severe secondary probably hypertension due to COPD -GERD Plan: Seen by cardio G. Switched to by mouth Lasix. On amiodarone. Bronchodilator dilator steroids to continue. Breathing is started to improve. Encouraged to be out of bed.
[2019-01-30] MEDS ORDERED: methylPREDNISolone SOD SUCCI 40 MG/ML 1 ML VIAL IV SCH (16:00)
[2019-01-30 16:46] LABS: Glucose,Whole Blood 125 mg/dL (75-99)
[2019-01-30] MEDS: FUROSEMIDE 40 MG TAB PO SCH (17:02)
[2019-01-30 21:29] LABS: Glucose,Whole Blood 170 mg/dL (75-99)
[2019-01-30] MEDS: MELATONIN 3 MG TABLET PO PRN (23:40)
[2019-01-31 06:15] LABS: Glucose,Whole Blood 119 mg/dL (75-99)
[2019-01-31] MEDS: INSULIN ASPART (NovoLOG) 100 UNIT/ML VIAL SQ SCH ×2 (06:16→11:48)
[2019-01-31 07:47] VITALS: RESP 16; TEMP 97.9
[2019-01-31] MEDS: NICOTINE 21MG/24HR PATCH TRANSDERM SCH (08:03)
[2019-01-31] MEDS: AMIODARONE 200 MG TAB PO SCH (08:03)
[2019-01-31] MEDS: methylPREDNISolone SOD SUCCI 40 MG/ML 1 ML VIAL IV SCH (08:04)
[2019-01-31] MEDS: FUROSEMIDE 40 MG TAB PO SCH (08:04)
[2019-01-31] MEDS: APIXABAN 5 MG TAB PO SCH (08:04)
[2019-01-31] MEDS: METOPROLOL TARTRATE 50 MG TAB PO SCH (08:04)
[2019-01-31] MEDS: SPIRONOLACTONE 25 MG TAB PO SCH (08:04)
[2019-01-31] MEDS: BUDESONIDE 1 MG/2 ML NEBU INHALATION SCH (08:29)
[2019-01-31] MEDS: IPRATROPIUM-ALBUTEROL 3 ML NEB INHALATION PRN (08:29)
[2019-01-31 11:06] VITALS: BP 135/58; PULSE 74
[2019-01-31 11:48] LABS: Glucose,Whole Blood 108 mg/dL (75-99)
--- NOTE | 2019-01-31 13:30 | P.PN ---
Subjective Progress Note Date: 01/31/19 This is a 63-year-old female who presented to the emergency room with symptoms of difficulty in breathing. She also noticed himself to be having palpitations with the associated shortness of breath. She was found in the emergency room to be in atrial fibrillation with rapid ventricular response. Patient does smoke a pack of cigarettes per day, no history of diabetes or hypertension. At the time of her examination today, patient continues to be in atrial fibrillation her heart rate is in the low 100 range, we will increase her dose of Lasix to 40 mg one tablet by mouth twice a day, IV amiodarone has infuse, we will start the patient on 400 mg by mouth amiodarone twice a day. Echo cardiac gram with Doppler study was performed which revealed a normal left ventricular systolic function with moderate mitral regurgitation. Moderate to severe pulmonary hypertension. 01/30/2019 Patient was seen and examined this morning feels much better overall. Blood pressure 130/70, heart rate remaining mostly in the 1 teens, 90s, 95% on room air. We'll continue the amiodarone at 400 mg one tablet by mouth twice a day along with the Eliquis, discontinue the IV Lasix today and put the patient on oral diuretics, continue metoprolol and Aldactone. 01/31/2019 Patient was seen and examined this morning, wheezing much less overall. Blood pressure 134/58, heart rate 70s to low 100s, 90% on room air. We will increase her dose of metoprolol to 75 mg one tablet by mouth twice a day today for more optimal heart rate control. Follow up chest x-ray in the morning. Objective - Vital Signs Vital signs: Vital Signs Temp 97.9 F 01/31/19 07:46 Pulse 74 01/31/19 11:11 Resp 16 01/31/19 11:05 BP 135/58 01/31/19 11:05 Pulse Ox 90 L 01/31/19 11:05 Intake & Output 01/30/19 01/31/19 01/31/19 18:59 06:59 18:59 Intake Total 720 Output Total 1700 Balance 720 -1700 Weight 58.1 kg Intake: Oral 720 Output: Urine 1700 Other: Voiding Method Toilet # Voids 2 2 # Bowel Movements 0 - Exam PHYSICAL EXAMINATION: GENERAL: 63-year-old female in no acute distress at the time of my examination HEENT: Head is atraumatic, normocephalic. Pupils equal, round. Sclera anicteric. Conjunctiva are clear. Mucous membranes of the mouth are moist. Neck is supple. There is no elevated jugular venous pressure.] bruit is heard. HEART EXAMINATION: Heart S1, S2 systolic murmur is heard normal. . CHEST EXAMINATION: Lungs are clear to auscultation and precussion. Mild wheezing heard on expiration ABDOMEN: Soft, nontender. Bowel sounds are heard. Positive organomegaly noted. EXTREMITIES: 2+ peripheral pulses with no evidence of peripheral edema and no calf tenderness noted. NEUROLOGIC patient is awake, alert and oriented ?-3. . - Labs CBC & Chem 7: 01/28/19 09:03 01/28/19 09:03 Labs: Abnormal Lab Results - Last 24 Hours (Table) 01/30/19 01/30/19 01/31/19 Range/Units 16:44 21:28 06:14 POC Glucose (mg/dL) 125 H 170 H 119 H (75-99) mg/dL 01/31/19 Range/Units 11:47 POC Glucose (mg/dL) 108 H (75-99) mg/dL Assessment and Plan Plan: Assessment and plan #1 persistent atrial fibrillation #2 diastolic congestive heart failure acute on chronic, LV function normal #3 nicotine dependence #4 EtOH use Plan We will continue with the amiodarone at 400 mg twice a day, continue anticoagulation, increase beta abi to 75 mg one tablet by mouth 3 times a day for more optimal heart rate control. Repeat chest x-ray in the morning. DNP note has been reviewed, I agree with a documented findings and plan of care. Patient was seen and examined.
--- NOTE | 2019-01-31 14:31 | XR ---
EXAMINATION TYPE: XR chest 2V DATE OF EXAM: 01/31/2019 COMPARISON: 01/28/2019 HISTORY: Follow-up heart failure TECHNIQUE: Frontal and lateral views of the chest are obtained. FINDINGS: There is blunting of costophrenic angles. There is mild pulmonary interstitial edema. Hear t is top normal in size. Thoracic aorta is atheromatous. There are chest leads. There is osteopenia. IMPRESSION: There is improvement in the pulmonary edema compared to last exam and consistent with re solving congestive heart failure.
[2019-01-31] MEDS ORDERED: METOPROLOL TARTRATE 25 MG TAB PO SCH (21:00)
--- NOTE | 2019-01-31 21:49 | P.DS ---
Providers Date of admission: 01/29/19 11:44 Expected date of discharge: 01/31/19 Attending physician: Kt Woodard Consults: 01/28/19 10:47 Consult Physician Routine Consulting Provider: [facility] Consult Reason/Comments: A. fib with rapid ventricular response Do you want consulting provider notified?: Yes Primary care physician: Adrián Interianoqvi Hospital Course: : admitted with severe COPD exacerbation. Also atrial fibrillation with a rapid ventricular rate. And also found to be in CHF exacerbation. Patient is a smoker. responded well to steroids, bronchodilators, heart rate better controlled by the time of discharge. Also received IV Lasix. Counseled about smoking. Nurse called me that she spoke to the Rachel from cardiology and patient cleared to be discharge today. Patient overall feeling much better. care was discussed in detail with the patient. Discussion and discharge planning more than 35 minutes Consultation: Dr. VC Osei from cardiology Physical examination: VITAL SIGNS: pulse 74 blood pressure 135/58 pulse 90% room air GENERAL: sitting up, breathing much improved. EYES: Pupils equal. Conjunctiva normal. HEENT: External appearance of nose and ears normal, oral cavity grossly normal. NECK: JVD not raised; masses not palpable. HEART: Heart sounds irregular; no edema. LUNGS:[ Respiratory rate increased, diminished breath sounds ABDOMEN: Soft, nontender, liver spleen not palpable, no masses palpable. PSYCH: [Alert and oriented x3; mood and affect anxious. Investigations: Accu-Cheks noted 2-D echo-EF 55-60%, wall motion abnormality, moderate mitral regurgitation, moderate to severe pulmonary hypertension discharge diagnosis: -Acute severe COPD exacerbation in a current smoker, -Chronic nicotine dependence patient cigarette smoker -New onset atrial fibrillation with rapid ventricular rate, still rate uncontrolled -Acute congestive heart failure exacerbation, from diastolic dysfunction EF 55- 60% -Wall motion abnormality on the 2-D echo patient will need cardiac catheterization at some point -Moderate mitral regurgitation, nontraumatic -Moderate to severe secondary probably hypertension due to COPD -GERD disposition: Home Patient Condition at Discharge: Stable Plan - Discharge Summary Discharge Rx Participant: No New Discharge Prescriptions: New Spironolactone [Aldactone] 25 mg PO DAILY #30 tab Ipratropium [place] [Atrovent Hfa] 2 puff INHALATION TID #1 inhaler Amiodarone [Cordarone] 400 mg PO BID #60 tab Apixaban [Eliquis] 5 mg PO BID #60 tab Nicotine 21Mg/24Hr Patch [Habitrol] 1 patch TRANSDERM DAILY #14 patch Metoprolol Tartrate [Lopressor] 75 mg PO TID #90 tab predniSONE 10 mg PO DAILY #30 tab Albuterol Inhaler [Ventolin Hfa Inhaler] 1 - 2 puff INHALATION Q6HR PRN #1 inhaler PRN Reason: Wheezing Discontinued D-Methorphan/PE/Acetaminophen [Tylenol Cold Max Day Caplet] 2 tab PO Q4H PRN PRN Reason: Cold Symptoms No Action Multivitamins, Thera [Theragran] 1 tab PO DAILY Aspirin EC [Ecotrin] 81 mg PO DAILY Ascorbic Acid [Vitamin C] 500 mg PO DAILY Vitamin B Complex 1 cap PO DAILY Discharge Medication List Aspirin EC [Ecotrin] 81 mg PO DAILY 09/16/14 [History] Multivitamins, Thera [Theragran] 1 tab PO DAILY 09/16/14 [History] Ascorbic Acid [Vitamin C] 500 mg PO DAILY 01/28/19 [History] Vitamin B Complex 1 cap PO DAILY 01/28/19 [History] Albuterol Inhaler [Ventolin Hfa Inhaler] 1 - 2 puff INHALATION Q6HR PRN #1 inhaler 01/31/19 [Rx] Amiodarone [Cordarone] 400 mg PO BID #60 tab 01/31/19 [Rx] Apixaban [Eliquis] 5 mg PO BID #60 tab 01/31/19 [Rx] Ipratropium [place] [Atrovent Hfa] 2 puff INHALATION TID #1 inhaler 01/31/19 [Rx] Metoprolol Tartrate [Lopressor] 75 mg PO TID #90 tab 01/31/19 [Rx] Nicotine 21Mg/24Hr Patch [Habitrol] 1 patch TRANSDERM DAILY #14 patch 01/31/19 [Rx] Spironolactone [Aldactone] 25 mg PO DAILY #30 tab 01/31/19 [Rx] predniSONE 10 mg PO DAILY #30 tab 01/31/19 [Rx] Follow up Appointment(s)/Referral(s): Adrián Farias MD [Primary Care Provider] - 1-2 days (Please call office during normal business hours to make follow up appointment.) Haritha Osei MD [STAFF PHYSICIAN] - 1 Week (Please call office during normal business hours to make follow up appointment. ) Patient Instructions/Handouts: A-fib (Atrial Fibrillation) (DC), COPD (Chronic Obstructive Pulmonary Disease) (DC), Safe Use of Anticoagulants (DC) Activity/Diet/Wound Care/Special Instructions: Pt Amanda copay is $8/mo. script in [facility] Discharge Disposition: HOME SELF-CARE
== END 2019-01-31 15:58 | disposition home or self-care (01) | DRG 190 ==
LOC: EC 08:43 → 3SCARD 10:54 → OBSVTOIN 01-29 11:44
PROVIDERS: ADMIT Hospitalist; ATTEND Hospitalist
DX: J44.1 Chronic obstructive pulmonary disease with (acute) exacerbation (principal); I50.33 Acute on chronic diastolic (congestive) heart failure; I48.1 Persistent atrial fibrillation; I27.20 Pulmonary hypertension, unspecified; I11.0 Hypertensive heart disease with heart failure; K21.9 Gastro-esophageal reflux disease without esophagitis; I34.0 Nonrheumatic mitral (valve) insufficiency; F17.210 Nicotine dependence, cigarettes, uncomplicated; Z79.82 Long term (current) use of aspirin; Z79.899 Other long term (current) drug therapy; Z80.3 Family history of malignant neoplasm of breast; Z83.3 Family history of diabetes mellitus
CPT/HCPCS: 36415; 71046; 71275; 80053; 80320; 83735; 83880; 84443; 84484; 85025; 85379; 85610; 85730; 93306; 94640; 94760; 96361; 96365; 96376; 99291

== ENCOUNTER 2019-05-04 09:56 | Day surgery (SDC) | payer MEDICARE ==
[2019-05-03 09:11] VITALS: BMI 22.1
[~2019-05-04 09:56] MED LIST: DEXAMETHASONE SOD PHOSPHATE 10 MG/ML 1 ML VIAL IV ONE; LIDOCAINE 1% 20 ML VIAL (10MG/ML) FOR IV START INTRADERMA PRN
[2019-05-04] MEDS ORDERED: SODIUM CHLORIDE 0.9% 1,000 ML IV ONE ×2 (10:25→11:44)
[2019-05-04 10:53] LABS: Calcium 9.6 mg/dL (8.4-10.2); Potassium 4.7 mmol/L (3.5-5.1)
[2019-05-04] MEDS ORDERED: PROPOFOL 10 MG/ML 20 ML VIAL IV ONE (11:01)
--- NOTE | 2019-05-04 11:57 | ECHOT ---
TRANSESOPHAGEAL ECHOCARDIOGRAM PREOPERATIVE DIAGNOSIS: Persistent atrial fibrillation. POSTOPERATIVE DIAGNOSIS: Persistent atrial fibrillation. Patient was given intravenous sedation with propofol by the nurse school janitor and transesophageal echocardiogram was performed without any complications. The left ventricular chamber is normal in size with normal left ventricular systolic function. Aortic mitral and tricuspid valve morphology is normal. There was evidence of mild degree of mitral and tricuspid regurgitation. The left atrial appendage was enlarged, but there was no evidence of any clot in the left atrium. There was no evidence of any thrombus in left atrial appendage. There was a smoke in the left atrium. Interatrial septum is intact. There was no evidence of any PFO. FINAL IMPRESSION: There is no evidence of any thrombus in the left atrial appendage. Left atrium is moderately enlarged. Left ventricular systolic function is normal. There is a mild mitral and aortic regurgitation. RECOMMENDATION: Proceed with a cardioversion. CARDIOVERSION PROCEDURE: PREOPERATIVE DIAGNOSIS: Persistent atrial fibrillation. POSTOPERATIVE DIAGNOSIS: Persistent atrial fibrillation. The patient was given intravenous sedation with propofol by the nurse school janitor and cardioversion was performed using 200 joules in synchronized mode. Patient converted to the normal sinus rhythm. Patient had a sinus bradycardia in the range of 35 to 40 , but patient remains asymptomatic and hemodynamically stable. We will continue to monitor the patient and decrease the dose of metoprolol to 25 mg b.i.d. MMFIDELL / ANDREWN: [id number] /
[2019-05-04] MEDS: SODIUM CHLORIDE 0.9% 1,000 ML IV SCH (15:20)
[2019-05-04] MEDS: LACTATED RINGERS 1,000 ML IV SCH (15:32)
[2019-05-04] MEDS: APIXABAN 5 MG TAB PO SCH (20:03)
[2019-05-05 03:17] VITALS: RESP 18
[2019-05-05] MEDS: SODIUM CHLORIDE 0.9% 1,000 ML IV SCH (06:37)
[2019-05-05] MEDS: LACTATED RINGERS 1,000 ML IV SCH (07:53)
[2019-05-05 08:02] VITALS: PULSE 43
[2019-05-05] MEDS: APIXABAN 5 MG TAB PO SCH (08:02)
[2019-05-05] MEDS ORDERED: AMIODARONE 200 MG TAB PO SCH (09:00)
[2019-05-05] MEDS ORDERED: ASPIRIN 81 MG PO SCH (09:00)
[2019-05-05] MEDS ORDERED: SPIRONOLACTONE 25 MG TAB PO SCH (09:00)
[2019-05-05 11:40] VITALS: BP 136/64; TEMP 98.6
--- NOTE | 2019-05-05 16:04 | P.PN ---
Subjective Progress Note Date: 05/05/19 Discharge note This is a 63-year-old female brought to the hospital by Dr. Osei to undergo a EDSON with subsequent cardioversion which was performed yesterday. Patient was seen and examined this morning, heart rate in the 40s, she denied any dizziness or lightheadedness. I had a rapid ambulating in the hallway today, heart rate up to the 50 range. Blood pressure 136/60, 92% on room air. Objective - Vital Signs Vital signs: Vital Signs Temp 98.6 F 05/05/19 11:39 Pulse 43 L 05/05/19 11:39 Resp 18 05/05/19 11:39 BP 136/64 05/05/19 11:39 Pulse Ox 92 L 05/05/19 11:39 Intake & Output 05/04/19 05/05/19 05/05/19 18:59 06:59 18:59 Intake Total 290 1000 240 Balance 290 1000 240 Weight 56.4 kg 58 kg Intake: IV 90 Invasive Line 1 20 Invasive Line 2 20 Intake, IV Titration 1000 Amount Sodium Chloride 0.9% 1, 1000 000 ml @ 100 mls/hr IV . Q10H [facility] Rx#:[id number] Oral 200 240 Other: Voiding Method Toilet # Voids 1 1 # Bowel Movements 1 - Exam PHYSICAL EXAMINATION: GENERAL: 63-year-old female in no acute distress at the time of my examination HEENT: Head is atraumatic, normocephalic. Pupils equal, round. Sclera anicteric. Conjunctiva are clear. Mucous membranes of the mouth are moist. Neck is supple. There is no elevated jugular venous pressure. No carotid bruit is heard. HEART EXAMINATION: Heart S1, S2 normal. No murmur or gallop heard. CHEST EXAMINATION: Lungs reveal scattered coarse wheezing throughout No chest wall tenderness is noted on palpation or with deep breathing. ABDOMEN: Soft, nontender. Bowel so.unds are heard. No organomegaly noted. EXTREMITIES: 2+ peripheral pulses with no evidence of peripheral edema and no calf tenderness noted. NEUROLOGIC patient is awake, alert and oriented 3 . . - Labs CBC & Chem 7: 05/04/19 10:25 Assessment and Plan Plan: Assessment and plan #1 status post DESON with subsequent cardioversion to normal sinus rhythm #2 nicotine dependence #3 GERD #4 hypertension Plan Patient may be discharged home today, amiodarone has been discontinued. She will follow-up in the office with Dr. michael carter next Friday at 4 PM. DNP note has been reviewed, I agree with a documented findings and plan of care. Patient was seen and examined.
== END 2019-05-05 12:36 | disposition home or self-care (01) ==
LOC: CATHCVL 09:56 → 3SCARD 14:46 → CATHCVL 05-05 12:36
PROVIDERS: ATTEND Internal Medicine Cardiovascular Disease
DX: I48.19 Other persistent atrial fibrillation (principal); I48.92 Unspecified atrial flutter; I10 Essential (primary) hypertension; K21.9 Gastro-esophageal reflux disease without esophagitis; F17.210 Nicotine dependence, cigarettes, uncomplicated; Z79.01 Long term (current) use of anticoagulants; Z79.52 Long term (current) use of systemic steroids; Z79.899 Other long term (current) drug therapy; Z82.49 Family history of ischemic heart disease and other diseases of the circulatory system
CPT/HCPCS: 93312; 93320; 93325; 92960; 80048; J2704

== ENCOUNTER 2021-04-12 10:34 | Inpatient (IN) | payer MEDICARE ==
--- NOTE | 2021-04-12 11:12 | ED ---
Chest Pain HPI - General Chief Complaint: Chest Pain Stated Complaint: ANAT Time Seen by Provider: 04/12/21 11:08 Source: patient, family Mode of arrival: wheelchair Limitations: no limitations - History of Present Illness Initial Comments: 65-year-old female presents emergency department with chest pain, shortness of breath and palpitations. Patient does have a history of A. fib. reports that 2 days ago she had worsening palpitations. She used to be on Eliquis however states she has not taken the medication in a year as her prescription ran out an d she never got it refilled. States that her breathing is worse with exertion. No cough, fevers or chills. No numbness or tingling in her extremities. No abdominal pain. Patient not currently on any medications at this time. No other alleviating, precipitating or modifying factors - Related Data Previous Rx's Medication Instructions Recorded Apixaban [Eliquis] 5 mg PO BID 30 Days #60 tab 04/12/21 Metoprolol Tartrate [Lopressor] 50 mg PO TID 30 Days #90 tab 04/13/21 Budesonide/Formoterol Fumarate 1 puff IH BID #10.2 gm 04/15/21 [Symbicort 160-4.5 Mcg Inhaler] Ipratropium-Albuterol Nebulize 3 ml INHALATION RT-Q6H #120 ml 04/15/21 [Duoneb 0.5 mg-3 mg/3 ml Soln] Nicotine 14Mg/24Hr Patch [Habitrol] 1 patch TRANSDERM HS #30 patch 04/15/21 Verapamil [Isoptin] 40 mg PO TID #120 tab 04/15/21 methylPREDNISolone Dose Pack 4 mg PO DIRECTED #1 packet 04/15/21 [Medrol Dose Pack] Allergies Allergy/AdvReac Type Severity Reaction Status Date / Time No Known Allergies Allergy Verified 04/12/21 12:28 Review of Systems ROS Statement: Those systems with pertinent positive or pertinent negative responses have been documented in the HPI. ROS Other: All systems not noted in ROS Statement are negative. EKG Findings - EKG Comments: EKG Findings:: EKG demonstrates A. fib with a rapid ventricular rate of 131. QRS 82. QTC of 481. No acute ST segment elevations or depressions Past Medical History Past Medical History: Atrial Fibrillation, GERD/Reflux, Hypertension History of Any Multi-Drug Resistant Organisms: None Reported Past Surgical History: Tubal Ligation Additional Past Surgical History / Comment(s): Colonoscopy Past Anesthesia/Blood Transfusion Reactions: No Reported Reaction Additional Past Anesthesia/Blood Transfusion Reaction / Comment(s): NO PREVIOUS ANESTHESIA Past Psychological History: No Psychological Hx Reported Smoking Status: Current every day smoker Past Alcohol Use History: Occasional Past Drug Use History: None Reported - Past Family History Father Family Medical History: Myocardial Infarction (LA) Additional Family Medical History / Comment(s): Father of a LA at the age of 54yrs. Mother Family Medical History: Cancer, Diabetes Mellitus Additional Family Medical History / Comment(s): BREAST CA Sister(s) Family Medical History: Cancer General Exam Limitations: no limitations General appearance: alert, in no apparent distress Head exam: Present: atraumatic, normocephalic, normal inspection Eye exam: Present: normal appearance, PERRL, EOMI. Absent: scleral icterus, conjunctival injection, periorbital swelling ENT exam: Present: normal exam, mucous membranes moist Neck exam: Present: normal inspection. Absent: tenderness, meningismus, lymphadenopathy Respiratory exam: Present: normal lung sounds bilaterally. Absent: respiratory distress, wheezes, rales, rhonchi, stridor Cardiovascular Exam: Present: tachycardia, irregular rhythm, normal heart sounds. Absent: systolic murmur, diastolic murmur, rubs, gallop, clicks GI/Abdominal exam: Present: soft, normal bowel sounds. Absent: distended, tenderness, guarding, rebound, rigid Extremities exam: Present: normal inspection, full ROM, normal capillary refill. Absent: tenderness, pedal edema, joint swelling, calf tenderness Back exam: Present: normal inspection Neurological exam: Present: alert, oriented X3, CN II-XII intact Psychiatric exam: Present: normal affect, normal mood Skin exam: Present: warm, dry, intact, normal color. Absent: rash Course Vital Signs 04/12/21 04/12/21 04/12/21 10:35 11:13 13:00 Temperature 97.2 F L Pulse Rate 116 H 151 H 134 H Respiratory 18 22 18 Rate Blood Pressure 164/90 136/91 136/91 O2 Sat by Pulse 92 L 96 96 Oximetry 04/12/21 04/12/21 04/12/21 14:57 16:04 16:14 Temperature Pulse Rate 102 H 83 78 Respiratory 18 16 Rate Blood Pressure 131/70 O2 Sat by Pulse 94 L 93 L Oximetry 04/12/21 18:02 Temperature Pulse Rate 97 Respiratory 18 Rate Blood Pressure 111/78 O2 Sat by Pulse 92 L Oximetry Chest Pain MDM - MDM Upon arrival patient is placed into room 17. A thorough history and physical exam was performed. Patient in A. fib with RVR. Laboratory studies are completed. Chest x-ray is reviewed which demonstrates left lower lobe infiltrate questionable. Patient is started on a Cardizem and heparin drip as she has no contraindications. Patient will be admitted to Dr. jacobson who accepted patient with cardiology to consult Critical Care Time Critical Care Time: Yes Critical Care Time: 32 minutes Disposition Clinical Impression: Atrial fibrillation with rapid ventricular response, COPD with acute exacerbation Disposition: ADMITTED IP TO THIS HOSP Condition: Stable Is patient prescribed a controlled substance at d/c from ED?: No Decision to Admit Reason: Admit from EC Decision Date: 04/12/21 Decision Time: 13:16
[2021-04-12] MEDS ORDERED: ASPIRIN 81 MG PO STA (11:36)
[2021-04-12] MEDS ORDERED: DILTIAZEM DRIP BOLUS FROM BAG 1 MG SOLN IV ONE (11:37)
[2021-04-12] MEDS ORDERED: DILTIAZEM 125 MG in SODIUM CHLORIDE 0.9% 100 ML IV SCH (11:45)
[2021-04-12 11:56] LABS: Basophils % (A) 1 %; Eosinophils # (A) 0.1 k/uL (0-0.7); Eosinophils % (A) 1 %; Hypochromasia Slight; Lymphocytes # (A) 1.2 k/uL (1.0-4.8); Lymphocytes % (A) 15 %; MCH 33.3 pg (25.0-35.0); MCHC 31.9 g/dL (31.0-37.0); MCV 104.5 fL (80.0-100.0); Macrocytosis Slight; Mean Platelet Volume 7.6; Monocytes # (A) 0.4 k/uL (0-1.0); Monocytes % (A) 5 %; Neutrophils # (A) 6.3 k/uL (1.3-7.7); Neutrophils % (A) 78 %; Platelet Count 351 k/uL (150-450); RBC 4.21 m/uL (3.80-5.40); RDW 13.4 % (11.5-15.5); WBC 8.1 k/uL (3.8-10.6)
[2021-04-12 12:09] LABS: Partial Thromboplastin Time 22.4 sec (22.0-30.0); Prothrombin Time 10.7 sec (9.0-12.0)
--- NOTE | 2021-04-12 12:13 | XR ---
EXAMINATION TYPE: XR chest 2V DATE OF EXAM: 04/12/2021 COMPARISON: 01/31/2019 HISTORY: Shortness of breath TECHNIQUE: Frontal and lateral views of the chest are obtained. FINDINGS: Scattered senescent parenchymal changes noted. Hyperinflation compatible with COPD. Pulmonary venous congestion with small left-sided effusion and patchy density left lower lobe. Develo ping infiltrate is difficult to exclude. The heart is stable in size. Mediastinal structures are stab le and grossly unremarkable. No evidence for hilar prominence. Degenerative changes dorsal spine. IMPRESSION: 1. Correlate for developing left lower lobe infiltrate with small effusion. There is evidence of medical liaison shy pulmonary venous decompensation.
[2021-04-12 12:16] LABS: Calcium 9.4 mg/dL (8.4-10.2); Magnesium 1.9 mg/dL (1.6-2.3); Potassium 4.4 mmol/L (3.5-5.1); Total Bilirubin 0.7 mg/dL (0.2-1.3)
[2021-04-12] MEDS ORDERED: methylPREDNISolone SOD SUCCI 125 MG/2 ML VIAL IV STA (13:16)
[2021-04-12] MEDS ORDERED: NALOXONE 0.4 MG/ML 1 ML VIAL IV PRN (13:17)
[2021-04-12] MEDS ORDERED: MAGNESIUM OXIDE 400 MG TAB PO STA (13:36)
[2021-04-12] MEDS ORDERED: MORPHINE SULFATE 4 MG/ML SYRINGE IVP STA (13:50)
[2021-04-12] MEDS ORDERED: ONDANSETRON 4 MG/2 ML VIAL IVP STA (13:51)
[2021-04-12] MEDS ORDERED: HEPARIN SODIUM 1,000 UN/ML (10ML VL) IV PRN (14:06)
[2021-04-12] MEDS ORDERED: HEPARIN SODIUM 1,000 UN/ML (10ML VL) IV ONE (14:06)
[2021-04-12] MEDS ORDERED: HEPARIN SOD,PORK IN 0.45% NACL 25,000 UNIT in 0.45% NACL 1 250ML.BAG IV SCH (14:15)
[2021-04-12] MEDS: METOPROLOL TARTRATE 50 MG TAB PO SCH ×2 (14:52→20:08)
--- NOTE | 2021-04-12 15:08 | P.CRDCN ---
History of Present Illness History of present illness: HISTORY OF PRESENTING ILLNESS This is a pleasant 65-year-old female past medical history significant for atrial fibrillation s/p previous cardioversion in 2019, chronic nicotine dependence, COPD. 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 We have been asked to see in consultation for chest pain and atrial fibrillation with RVR. Patient is seen and examined in the emergency department. She states she's been having symptoms of chest heaviness, shortness of breath, fatigue and orthopnea for a few days. Her chest pain is located in the center of her chest, it is nonradiating, nonexertional. She denies any associated diaphoresis, nausea, vomiting. She has been having symptoms of palpitations and exertional shortness of breath. She states she has a history of atrial fibrillation she was on Eliquis but stopped taking the medication because of the high cost of the medication. She denies any history of AL, coronary disease, diabetes. Her family history includes her father had a AL in his 50s. She states she has been told that she has a history of hypertension but does not take any medication. She states she smokes 1PPD and drinks alcohol daily about 2-3 gin and tonics per day. Patient was started on IV heparin and IV Cardizem at 5 mg/hr after 10mg IV cardizem bolus, her heart rates have improved. She states her symptoms have improved since admission. DIAGNOSTICS EKG reveals atrial fibrillation with rapid ventricular response, heart rate 131, nonspecific ST and T wave abnormality. Telemetry tracings indicate a defibrillation heart rate in the [id number]. Chest xray developing left lower lobe infiltrate with small effusion. Evidence of chronic pulmonary venous decompensation. Laboratory reviewed, CBC unremarkable, sodium 138, potassium 4.4, BUN 15, serum creatinine 0.9, troponin negative 1, magnesium 1.9, COVID-19 PCR negative, proBNP 5940 Current home cardiac medications include aspirin 81mg daily Most recent echocardiogram in 2019 revealed an EF of 5560 percent, basal inferior and basal inferior septal LV wall hypokinetic, mild aortic stenosis peak/mean gradient of 15 mmHg sats 6 mmHg, moderate mitral regurgitation, mild tricuspid regurgitation, moderate severe pulmonary hypertension with RVSP of 55 mmHg no pericardial effusion. REVIEW OF SYSTEMS At the time of my exam: CONSTITUTIONAL: Denies fever or chills. CARDIOVASCULAR: + chest pain,+ shortness of breath, +orthopnea, Denies PND or palpitations. RESPIRATORY: Denies cough. GASTROINTESTINAL: Denies abdominal pain, diarrhea, constipation, nausea or vomiting. MUSCULOSKELETAL: Denies myalgias. NEUROLOGIC: Denies numbness, tingling, headacbe or weakness. ENDOCRINE: Denies fatigue, weight change, polydipsia or polyurina. GENITOURINARY: Denies burning, hematuria or urgency with micturation. HEMATOLOGIC: Denies history of anemia or bleeding. PHYSICAL EXAMINATION Blood pressure 131/70, heart rate 102, afebrile, saturations greater than 92% on room air CONSTITUTIONAL: No apparent distress. HEENT: Head is normocephalic. Pupils are equal, round. Sclerae anicteric. Mucous membranes of the mouth are moist. No JVD. No carotid bruit. CHEST EXAMINATION: Lungs are clear to auscultation. No chest wall tenderness is noted on palpation or with deep breathing. HEART EXAMINATION: Irregular and tachycardic rate and rhythm. S1, S2 heard. Systolic ejection murmur at right sternal border and apex. ABDOMEN: Soft, nontender. Positive bowel sounds. EXTREMITIES: 2+ peripheral pulses, no lower extremity edema and no calf tenderness. NEUROLOGIC EXAMINATION: Patient is awake, alert and oriented x3. ASSESSMENT Paroxysmal atrial fibrillation with rapid ventricular response, [id number] score History of hypertension History of cardioversion 2019 Chronic nicotine dependence COPD Daily alcohol use PLAN Start metoprolol tartrate 50mg BID, stop Cardizem drip Continue IV heparin. Will consult case management for anticoagulation coverage for the patient. Continue cardiac telemetry 2-D echocardiogram in the morning Check TSH Further recommendations based on clinical course Nurse Practitioner note has been reviewed, I agree with a documented findings and plan of care. Patient was seen and examined. Past Medical History Past Medical History: Atrial Fibrillation, GERD/Reflux, Hypertension History of Any Multi-Drug Resistant Organisms: None Reported Past Surgical History: Tubal Ligation Additional Past Surgical History / Comment(s): Colonoscopy Past Anesthesia/Blood Transfusion Reactions: No Reported Reaction Additional Past Anesthesia/Blood Transfusion Reaction / Comment(s): NO PREVIOUS ANESTHESIA Past Psychological History: No Psychological Hx Reported Smoking Status: Current every day smoker Past Alcohol Use History: Occasional Past Drug Use History: None Reported - Past Family History Father Family Medical History: Myocardial Infarction (AL) Additional Family Medical History / Comment(s): Father of a AL at the age of 54yrs. Mother Family Medical History: Cancer, Diabetes Mellitus Additional Family Medical History / Comment(s): BREAST CA Sister(s) Family Medical History: Cancer Medications and Allergies Home Medications Medication Instructions Recorded Confirmed Type Aspirin EC [Ecotrin Low Dose] 81 mg PO DAILY 09/16/14 04/12/21 History Apixaban [Eliquis] 5 mg PO BID 30 Days #60 tab 04/12/21 Rx Allergies Allergy/AdvReac Type Severity Reaction Status Date / Time No Known Allergies Allergy Verified 04/12/21 12:28 Physical Exam Vitals: Vital Signs Temp Pulse Resp BP Pulse Ox 04/12/21 13:00 134 H 18 136/91 96 04/12/21 11:13 151 H 22 136/91 96 04/12/21 10:35 97.2 F L 116 H 18 164/90 92 L Intake and Output 04/11/21 04/12/21 04/12/21 22:59 06:59 14:59 Other: Weight 58.967 kg Results 04/12/21 11:39 04/12/21 11:39 Cardiac Enzymes 04/12/21 04/12/21 Range/Units 11:39 11:39 AST 28 (14-36) U/L Troponin I <0.012 (0.000-0.034) ng/mL Coagulation 04/12/21 Range/Units 11:39 PT 10.7 (9.0-12.0) sec APTT 22.4 (22.0-30.0) sec CBC 04/12/21 Range/Units 11:39 WBC 8.1 (3.8-10.6) k/uL RBC 4.21 (3.80-5.40) m/uL Hgb 14.0 (11.4-16.0) gm/dL Hct 44.0 (34.0-46.0) % Plt Count 351 (150-450) k/uL Comprehensive Metabolic Panel 04/12/21 Range/Units 11:39 Sodium 138 (137-145) mmol/L Potassium 4.4 (3.5-5.1) mmol/L Chloride 103 (98-107) mmol/L Carbon Dioxide 26 (22-30) mmol/L BUN 15 (7-17) mg/dL Creatinine 0.92 (0.52-1.04) mg/dL Glucose 104 H (74-99) mg/dL Calcium 9.4 (8.4-10.2) mg/dL AST 28 (14-36) U/L ALT 19 (4-34) U/L Alkaline Phosphatase 124 (38-126) U/L Total Protein 7.0 (6.3-8.2) g/dL Albumin 4.0 (3.5-5.0) g/dL Current Medications Generic Name Dose Route Start Last Admin Trade Name Freq PRN Reason Stop Dose Admin Albuterol/Ipratropium 3 ml 04/12/21 16:00 Ipratropium-Albuterol 3 Ml Neb INHALATION RT-Q4H PALLAVI Diltiazem HCl 125 mg/ Sodium 125 mls @ 5 mls/hr 04/12/21 11:45 04/12/21 13:16 Chloride IV 5 mg/hr .Q24H PALLAVI 5 mls/hr Administration 5 MG/HR Naloxone HCl 0.2 mg 04/12/21 13:17 Naloxone 0.4 Mg/Ml 1 Ml Vial IV Q2M PRN Opioid Reversal Intake and Output 04/11/21 04/12/21 04/12/21 22:59 06:59 14:59 Other: Weight 58.967 kg Patient Weight 04/13/21 06:59 Weight 58.967 kg 04/12/21 11:39 04/12/21 11:39
[2021-04-12] MEDS: IPRATROPIUM-ALBUTEROL 3 ML NEB INHALATION SCH ×2 (16:04→19:51)
[2021-04-12] MEDS: NICOTINE 14MG/24HR PATCH TRANSDERM SCH (20:08)
[2021-04-12] MEDS: FUROSEMIDE 10 MG/ML 4 ML VIAL IV SCH (20:08)
--- NOTE | 2021-04-12 20:30 | HP ---
HISTORY AND PHYSICAL DATE OF SERVICE: 04/12/2021 CHIEF COMPLAINT: Shortness of breath and palpitations. HISTORY OF PRESENT ILLNESS: This 65-year-old woman with a past medical history of multiple medical problems such as history of atrial fibrillation, history of GERD, hypertension, history of tubal ligation, being followed by Dr. Farias in the outpatient setting, was complaining of palpitations. Subsequently patient had chest pain which was in the anterior part of chest. The patient was unable to sleep and was holding the chest. The patient also had shortness of breath. The patient came to [facility] and was found to have evidence of atrial fibrillation. Chest x-ray showed some infiltrate, and the possibility of CHF needs to be considered. There is no history of any fever, rigors or chills. No history of headache, loss of consciousness, seizures at this time. PAST MEDICAL HISTORY: History of atrial fibrillation, history of GERD, hypertension. HOME MEDICATIONS: Aspirin and Eliquis. ALLERGIES: NONE. FAMILY HISTORY: History of diabetes mellitus, type 2, history of breast cancer. SOCIAL HISTORY: History of smoking, continued, ongoing. History of alcohol intake. REVIEW OF SYSTEMS: ENT: No diminished hearing. No diminished vision. CARDIOVASCULAR SYSTEM: As mentioned earlier. RESPIRATORY SYSTEM: As mentioned earlier. GI: No nausea, vomiting, diarrhea. : No dysuria. NERVOUS SYSTEM: No numbness, weakness. ALLERGY/IMMUNOLOGY: No asthma or hay fever. MUSCULOSKELETAL: As mentioned earlier. HEMATOLOGY/ONCOLOGY: No history of anemia. ENDOCRINE: No history of diabetes or hypothyroidism. CONSTITUTIONAL: As mentioned earlier. DERMATOLOGY: Negative. RHEUMATOLOGY: Negative. PSYCHIATRY: As mentioned earlier. PHYSICAL EXAMINATION: Patient alert and oriented x3. Pulse 99, blood pressure 114/74, respiration 16, temperature 97.7, pulse ox 91% on 2 L. HEENT: Conjunctivae normal. NECK: Jugular venous distention in the root of the neck. CARDIOVASCULAR: S1, S2 muffled. Ejection systolic murmur. RESPIRATION: Breath sounds diminished at the bases. Scattered rhonchi and crackles in the bases. ABDOMEN: Soft, nontender. No mass palpable. LEGS: No edema. No swelling. NERVOUS SYSTEM: Higher functions as mentioned earlier. Moves all 4 limbs. No focal motor or sensory deficit. LYMPHATICS: No lymph node palpable in neck, axillae or groin. SKIN: No ulcer, rash, bleeding. JOINTS: No active deforming arthropathy. LABS: CBC within normal limits. MCV is 104.5 and glucose 104.5. Chest x-ray noted. The EKG shows atrial fibrillation with fast ventricular rate. ASSESSMENT: 1. Atrial fibrillation with fast ventricular rate. 2. Chest pain, possible unstable angina. Rule out coronary artery disease. 3. Rule out congestive heart failure. 4. Increased mean corpuscular volume. 5. History of continued ongoing nicotine dependence. 6. Family history of premature coronary artery disease. Father at the age of 54. 7. History of atrial fibrillation. 8. History of gastroesophageal reflux disease. 9. History of hypertension. 10.History of colonoscopy. 11.History of tubal ligation. 12.FULL CODE. RECOMMENDATIONS AND DISCUSSION: In this 65-year-old woman who presented with multiple complex medical issues, we will monitor the patient closely, continue the current medications, continue symptomatic treatment. Cardiology consultation. Two-D echo with Doppler. Continue with Cardizem, beta blockers. Otherwise, resume the home medications. DVT prophylaxis. The patient might need some testing to evaluate the coronary anatomy depending upon the preliminary tests. The troponins are negative at this time. NT proBNP is elevated up to 5940. I would also start a small dose of diuretics as well. TSH is 1.16, which is normal. Also recommend UA and drug screen. Overall prognosis is guarded. Further recommendations to follow. A copy of this dictation is being forwarded to Dr. Farias, who is the primary physician. YAJAIRA / BURAK: [id number] /
[2021-04-13] MEDS: IPRATROPIUM-ALBUTEROL 3 ML NEB INHALATION SCH ×6 (00:16→20:23)
[2021-04-13 02:50] LABS: Basophils % (A) 0 %; Eosinophils % (A) 0 %; HCT 40.4 % (34.0-46.0); HGB 12.6 gm/dL (11.4-16.0); Hypochromasia Slight; Lymphocytes # (A) 0.5 k/uL (1.0-4.8); Lymphocytes % (A) 9 %; MCH 32.7 pg (25.0-35.0); MCHC 31.1 g/dL (31.0-37.0); Macrocytosis Moderate; Mean Platelet Volume 7.2; Monocytes # (A) 0.1 k/uL (0-1.0); Monocytes % (A) 2 %; Neutrophils # (A) 5.5 k/uL (1.3-7.7); Neutrophils % (A) 89 %; Platelet Count 295 k/uL (150-450); RBC 3.85 m/uL (3.80-5.40); RDW 13.6 % (11.5-15.5); WBC 6.1 k/uL (3.8-10.6)
[2021-04-13 03:03] LABS: Partial Thromboplastin Time 50.1 sec (22.0-30.0); Prothrombin Time 10.6 sec (9.0-12.0)
[2021-04-13 04:08] LABS: Calcium 9.2 mg/dL (8.4-10.2); Potassium 4.9 mmol/L (3.5-5.1)
[2021-04-13] MEDS: APIXABAN 5 MG TAB PO SCH ×2 (06:55→19:37)
--- NOTE | 2021-04-13 07:29 | XR ---
EXAMINATION TYPE: XR chest 1V portable DATE OF EXAM: 04/13/2021 Comparison: 04/12/2021 Clinical History: 65-year-old female CHF Findings: Heart borderline enlarged. Hyperinflation. Diffuse interstitial changes persist. Continued focal patc hy left basilar opacity and possible trace left effusion. Impression: COPD with relatively similar CHF with mild interstitial pulmonary edema. Small left pleural effusion with adjacent left basilar atelectasis and/or consolidation also similar.
[2021-04-13] MEDS: METOPROLOL TARTRATE 50 MG TAB PO SCH ×3 (08:56→19:37)
[2021-04-13] MEDS: FUROSEMIDE 10 MG/ML 4 ML VIAL IV SCH (08:56)
[2021-04-13] MEDS: NICOTINE 14MG/24HR PATCH TRANSDERM SCH (08:56)
[2021-04-13] MEDS ORDERED: ASPIRIN 81 MG PO SCH (09:00)
--- NOTE | 2021-04-13 10:49 | PN ---
PROGRESS NOTE Mrs. Menon was hospitalized yesterday with atrial fibrillation, rapid ventricular rate, hypertension and COPD. She is known to have this condition previously, had electrical cardioversion performed and also was advised to be on Eliquis that she stopped on her own. Atrial fibrillation rate is better controlled. I am increasing the metoprolol to 50 mg three times a day. We will switch her from IV heparin to Eliquis 5 mg b.i.d., increase activity, and if rate control is optimal she may be discharged. Will await the results of echocardiogram, which will be performed shortly. Vitals are stable. There is no JVD. S1, S2 with irregularity in rhythm is noted. Lungs reveal diminished air entry. Patient is a smoker, smokes up to 1 to 2 packs daily. Abdomen is soft, nontender. Lower extremities reveal diminished pulses. Central nervous system is normal. IMPRESSION: 1. Paroxysmal/persistent atrial fibrillation, with now controlled ventricular rate. 2. Hypertension. 3. Smoking and chronic obstructive pulmonary disease. RECOMMENDATIONS: We will switch her from IV heparin to 5 mg b.i.d. of Eliquis and increase the metoprolol to 50 mg t.i.d. Based on clinical course, we will make further recommendations. MMODL / IJN: [id number] /
--- NOTE | 2021-04-13 11:49 | ECHOF ---
Referral Reason:LV function MEASUREMENTS -------- HEIGHT: 162.6 cm WEIGHT: 59.0 kg BP: RVIDd: 2.4 cm (< 3.3) IVSd: 1.5 cm (0.6 - 1.1) LVIDd: 2.6 cm (3.9 - 5.3) LVPWd: 1.7 cm (0.6 - 1.1) LAESV Index (A-L): 40.91 ml/m Ao Diam: 2.9 cm (2.0 - 3.7) AV Cusp: 1.6 cm (1.5 - 2.6) LA Diam: 4.0 cm (2.7 - 3.8) MV EXCURSION: 15.618 mm (> 18.000) MV EF SLOPE: 72 mm/s (70 - 150) EPSS: 0.4 cm AV maxP.16 mmHg AV meanP.72 mmHg AR PHT: 300 ms RAP: 15.00 mmHg RVSP: 56.69 mmHg FINDINGS -------- This was a technically good study. The left ventricular size is normal. There is moderate concentric left ventricular hypertrophy. O verall left ventricular systolic function is normal with, an EF between 55 - 60 %. The right ventricle is normal in size. LA is severely dilated >40 ml/m2 The right atrial size is normal. The aortic valve is trileaflet and appears structurally normal. There is mild aortic regurgitation. The mitral valve is normal. Mild mitral regurgitation is present. The tricuspid valve appears structurally normal. Mild tricuspid regurgitation present. There is m oderate pulmonary hypertension. The right ventricular systolic pressure, as measured by Doppler, is 56.69mmHg. There is no pulmonic regurgitation present. The aortic root size is normal. The inferior vena cava is mildly dilated. There is no pericardial effusion. CONCLUSIONS -------- 1. The left ventricular size is normal. 2. There is moderate concentric left ventricular hypertrophy. 3. Overall left ventricular systolic function is normal with, an EF between 55 - 60 %. 4. LA is severely dilated >40 ml/m2 5. There is mild aortic regurgitation. 6. Mild mitral regurgitation is present. 7. Mild tricuspid regurgitation present. 8. There is moderate pulmonary hypertension. 9. The right ventricular systolic pressure, as measured by Doppler, is 56.69mmHg. 10. The inferior vena cava is mildly dilated. 11. There is no pericardial effusion. JUNIOR LINUX ADMINISTRATOR: Karis Carlson RDCS
--- NOTE | 2021-04-13 16:31 | PN ---
PROGRESS NOTE DATE OF SERVICE: 04/13/2021. HISTORY: This 65-year-old woman is admitted with atrial fibrillation ablation and shortness of breath, also had some features of CHF. Chest x-ray done today was reviewed personally by me showed some increased bronchovascular markings. A 2D echo with Doppler was repeated showed ejection fraction 50 to 60% with moderate concentric left ventricular hypertrophy. LA was severely dilated more than 40; otherwise normal but mild mitral regurgitation is suggested. No chest pain. No palpitations. No fever. PHYSICAL EXAMINATION: Alert and oriented x3. Patient is not feeling well today. On exam alert and oriented. Pulse 95, blood pressure 115/70, respirations 20, temperature normal, pulse ox 94% on room air. HEENT conjunctivae normal. Neck is supple. Cardiovascular S1 and S2 present. Breath sounds diminished at the bases. Scattered rhonchi and crackles. Abdomen is soft, nontender. Legs no edema. 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 LABS: MCV 105 and sodium 136 and creatinine is 1.1011. ASSESSMENT: 1. Atrial fibrillation ablation fast ventricular rate. 2. Chest pain possible unstable angina. Rule out coronary artery disease. 3. Possible CHF exacerbation acute on chronic diastolic dysfunction ejection fraction 55-60 percent. 4. Mild acute renal failure with acute tubular necrosis. 5. Increased MCV. 6. History of continued ongoing nicotine dependence. 7. Family history of premature coronary disease. Father at early ages of 54. 8. History of atrial fibrillation. 9. History of GERD. 10.Hypertension. 11.History of colonoscopy. 12.History of tubal ligation. 13.FULL CODE. 14.Increased MCV. 15.Mild lymphopenia. RECOMMENDATIONS AND DISCUSSION: This 65-year-old gentleman with multiple complex medical history. We will monitor the patient closely, continue the current management. I recommend UA and repeat labs tomorrow. I would also recommend a D-dimer and if it is positive I would also recommend a CT angio of the chest. Closely follow with Cardiology. Guarded prognosis because of multiple complex medical issues. Patient started on metoprolol. Cut down the dose of Lasix. MMODL / ANDREWN: [id number] /
[2021-04-14] MEDS: IPRATROPIUM-ALBUTEROL 3 ML NEB INHALATION SCH ×6 (00:28→20:01)
[2021-04-14 04:28] LABS: Basophils % (A) 0 %; Eosinophils # (A) 0.1 k/uL (0-0.7); Eosinophils % (A) 1 %; HCT 40.8 % (34.0-46.0); HGB 12.9 gm/dL (11.4-16.0); Hypochromasia Slight; Lymphocytes # (A) 1.7 k/uL (1.0-4.8); Lymphocytes % (A) 18 %; MCH 33.2 pg (25.0-35.0); MCHC 31.6 g/dL (31.0-37.0); MCV 105.1 fL (80.0-100.0); Macrocytosis Moderate; Mean Platelet Volume 7.1; Monocytes # (A) 0.5 k/uL (0-1.0); Monocytes % (A) 5 %; Neutrophils # (A) 6.9 k/uL (1.3-7.7); Neutrophils % (A) 75 %; Platelet Count 264 k/uL (150-450); RBC 3.88 m/uL (3.80-5.40); RDW 13.8 % (11.5-15.5); WBC 9.2 k/uL (3.8-10.6)
[2021-04-14 05:03] LABS: Potassium 4.9 mmol/L (3.5-5.1)
[2021-04-14] MEDS: APIXABAN 5 MG TAB PO SCH ×2 (09:45→19:38)
[2021-04-14] MEDS: METOPROLOL TARTRATE 50 MG TAB PO SCH ×3 (09:45→19:39)
[2021-04-14] MEDS: VERAPAMIL 40 MG TAB PO SCH ×2 (09:45→19:39)
[2021-04-14] MEDS: FUROSEMIDE 10 MG/ML 4 ML VIAL IV SCH (09:46)
[2021-04-14] MEDS: NICOTINE 14MG/24HR PATCH TRANSDERM SCH (09:50)
--- NOTE | 2021-04-14 12:46 | CT ---
EXAMINATION TYPE: High resolution CT chest DATE OF EXAM: 04/14/2021 COMPARISON: Correlation radiograph 04/13/2021. CT 01/28/2019 HISTORY: 65-year-old female newly requiring O2, rule out PE, COPD, pulmonary fibrosis. TECHNIQUE: High-resolution scanning of the chest utilizing 1 mm slice thickness and [address] protocol. No contrast was administered. Both prone and supine imaging was performed. CT DLP: 425.7 mGycm Automated exposure control for dose reduction was used. FINDINGS: Heart upper limits of normal in size without pericardial effusion. However, there appears to be left atrial dilatation. Scattered LAD and RCA coronary artery calcifications are present. Ectatic ascending aorta at 3.6 cm. Mild atherosclerotic arch calcifications. Conventional arch vessel branching anatomy. Prominent 9 mm low right paratracheal lymph node has decreased in size from 01/28/2019. Moderate upper lung predominant centrilobular emphysema. Mild biapical pleural parenchymal scarring. Mild to moderate diffuse bronchial wall thickening. Scattered interstitial lines are present. Some no dular and patchy density inferior lingula and focal consolidation medial basilar left lower lobe. Small left and trace right pleural effusions. No honeycombing or dominant groundglass opacities. Visualized upper abdomen shows moderate atherosclerotic calcifications in the abdominal aorta but oth erwise no gross abnormality. Bones: Moderate anterior endplate spondylosis mid to lower thoracic spine. IMPRESSION: 1. COPD WITH MODERATE EMPHYSEMA. LAD AND RCA CORONARY ARTERY CALCIFICATIONS. 2. SMALL LEFT AND TRACE RIGHT PLEURAL EFFUSION AND SCATTERED SEPTAL LINES. GIVEN THE LEFT ATRIAL DILA TATION, CORRELATE FOR MILD CHF WITH PULMONARY VASCULAR CONGESTION. 3. HOWEVER, THERE ARE SOME PATCHY NODULAR OPACITIES SUCH IN THE INFERIOR LING[place]A AND CONFLUENT CON SOLIDATION MEDIAL BASILAR LEFT LOWER LOBE. CORRELATE TO EXCLUDE SUPERIMPOSED PNEUMONIA. THREE-MONTH F OLLOW-UP CT CHEST TO ENSURE CLEARANCE. 4. NO HONEYCOMBING TO SUGGEST UIP. NO DOMINANT GROUNDGLASS CHANGES AT THIS TIME.
--- NOTE | 2021-04-14 14:29 | PN ---
PROGRESS NOTE Mrs. Menon is a lady who has shortness of breath and came in with atrial fib and a moderately rapid ventricular rate. She is resting comfortably at this time. Her rate is much better but still not optimally controlled yet. I am recommending that we will continue her current medical regimen, but I will add a small dose of verapamil for rate control also and see how she does. Her LV systolic function is well preserved on echo. There is evidence of pulmonary hypertension. I am recommending that we discontinue her aspirin, leave her on Eliquis 5 mg b.i.d. Vitals are stable. JVD 1 cm. No carotid bruit S1, S2 with irregular rate and rhythm is audible. Lungs reveal diminished air entry. Abdomen is soft. Lower extremities reveal diminished pulses. Central nervous system grossly no focal deficits. IMPRESSION: 1. New onset atrial fibrillation in a patient who has had this episode before. 2. Smoking and chronic obstructive pulmonary disease. 3. Hypertension. RECOMMENDATIONS: We will add verapamil for rate control. Discontinue aspirin. Advised to quit smoking. Increase activity and if the rate is better, she can be discharged today. MMODL / IJN: [id number] /
--- NOTE | 2021-04-14 15:18 | US ---
EXAMINATION TYPE: US venous doppler duplex LE BI DATE OF EXAM: 04/14/2021 2:19 PM COMPARISON: NONE CLINICAL HISTORY: R/O DVT. Chest pain, no swelling or leg pain, no h/o dvt SIDE PERFORMED: Bilateral TECHNIQUE: The lower extremity deep venous system is examined utilizing real time linear array sonog suzan with graded compression, doppler sonography and color-flow sonography. VESSELS IMAGED: Common Femoral Vein Deep Femoral Vein Greater Saphenous Vein * Femoral Vein Popliteal Vein Small Saphenous Vein * Proximal Calf Veins (* superficial vessels) Right Leg: Negative for DVT Left Leg: Negative for DVT IMPRESSION: No evidence of deep vein thrombosis in both legs.
--- NOTE | 2021-04-14 21:47 | PN ---
PROGRESS NOTE DATE OF SERVICE: 04/14/2021 This 65-year-old woman who was admitted with atrial fibrillation with a fast ventricular rate also had chest pressure. Patient also had significant hypoxia. A chest CT was done today which I reviewed personally. It is reported as showing multiple abnormalities, including COPD with moderate emphysema and LAD and RCA coronary artery calcification and small left trace pleural effusion. Patchy nodular opacities in the inferior lingula were also noted, possibly interstitial pneumonia. No honeycombing was noted. The patient is being closely monitored at this time. Consultation with Pulmonary is also being requested because of the concern of hypoxia at this time. V/Q scan is pending at this time. Past medical history reviewed. REVIEW OF SYSTEMS: CARDIOVASCULAR SYSTEM: No angina. RESPIRATION: As mentioned earlier. GI: As mentioned earlier. : No dysuria. NERVOUS SYSTEM: No numbness, weakness. CURRENT MEDICATIONS: Reviewed. They include Eliquis, Lasix, Lopressor, Narcan, Isoptin. PHYSICAL EXAMINATION: Patient is alert, oriented x3. Pulse is 90, blood pressure 100/60, respiration 18, temperature 97.2, pulse ox 94% on 2 L. HEENT: Conjunctivae normal. NECK: No jugular venous distention. CARDIOVASCULAR: S1, S2 muffled. RESPIRATION: Breath sounds diminished at the bases. A few scattered rhonchi. ABDOMEN: Soft, nontender. LEGS: No edema. No swelling. NERVOUS SYSTEM: No focal deficit. LABS: WBC 9.2, MCV 105.1. Creatinine is 1.07. ASSESSMENT: 1. Atrial fibrillation with a fast ventricular rate. 2. Chest pain, possible unstable angina. Rule out coronary artery disease. 3. Possible congestive heart failure, acute exacerbation, with acute on chronic diastolic dysfunction, ejection fraction 50% to 60%. 4. Mild acute renal failure with acute tubular necrosis, present on admission. 5. Bilateral artery calcification. 6. Possible interstitial shadows as well as nodular lesions on the CT scan. 7. Possible chronic obstructive pulmonary disease on the CT scan. 8. Increased mean corpuscular volume. 9. History of continued ongoing nicotine dependence. 10.Family history of premature coronary disease. Father at the age of 54. 11.History of atrial fibrillation. 12.History of gastroesophageal reflux disease. 13.Hypertension. 14.History of colonoscopy. 15.History of tubal ligation. 16.Increased mean corpuscular volume. 17.Mild lymphopenia. 18.FULL CODE. RECOMMENDATIONS AND DISCUSSION: I recommend to continue current medications, continue with symptomatic treatment. Continue to monitor. Await Dr. Lockhart's recommendations. Guarded prognosis because of multiple complex medical issues. Further recommendations to follow. Bronchodilators have been given empirically. Further recommendations to follow. See orders for further details. Follow closely with Cardiology and Pulmonary. MMFIDELL / IJN: [id number] / ABBEY
[2021-04-15] MEDS: IPRATROPIUM-ALBUTEROL 3 ML NEB INHALATION SCH ×7 (00:15→23:38)
[2021-04-15] MEDS: APIXABAN 5 MG TAB PO SCH ×2 (07:44→17:18)
[2021-04-15] MEDS: METOPROLOL TARTRATE 50 MG TAB PO SCH ×3 (07:44→20:44)
[2021-04-15] MEDS: FUROSEMIDE 10 MG/ML 4 ML VIAL IV SCH (07:44)
[2021-04-15] MEDS: VERAPAMIL 40 MG TAB PO SCH ×3 (07:44→20:45)
[2021-04-15] MEDS: NICOTINE 14MG/24HR PATCH TRANSDERM SCH (07:46)
--- NOTE | 2021-04-15 12:48 | PN ---
PROGRESS NOTE This lady has smoking and COPD history. Her home oxygen is being arranged. Her oxygen saturation has been low. She also has atrial fib which is new and her rate is fairly well controlled. I am increasing the verapamil to 40 mg t.i.d. and will discontinue IV Lasix and increase activity. Vitals are stable. JVD 1 cm. No carotid bruit. S1, S2 heard normally. Lungs reveal diminished air entry. Abdomen is soft. Lower extremities reveal diminished pulses. Plan is to continue current medications. Increase verapamil. Can go home oxygen. I will see her in 2 weeks. Advised to continue to refrain from smoking. MMODL / IJN: [id number] /
--- NOTE | 2021-04-15 15:24 | P.CNPUL ---
History of Present Illness Consult date: 04/15/21 Requesting physician: Conchita Galvan Reason for consult: COPD Chief complaint: Chest pain. History of present illness: This is a 65-year-old female with history of paroxysmal atrial fibrillation, had previous cardioversion in 2019. History of COPD, [id number] smoking history, patient came in with 5 days history of sternal chest pain. Pain described as heaviness in the chest, started a few days ago while she was raking the leaves in her yard. Pain was not radiating, but it was definitely exertional. And it remained on and off for the last few days. Finally the patient decided to come into the emergency room, and she was noted to be in atrial fibrillation with RVR. Patient was seen by cardiology on consultation, he was placed on Cardizem drip, eventually transitioned to verapamil. CT of the chest was done on this patient, and it showed mostly COPD, it also showed nonspecific opacity in the lingula which I have reviewed with the patient, and it could be related to scarring could also be related to underlying malignancy. I did recommend a must repeat CT of the chest in 3 months. Patient was cleared by cardiology for discharge although her presentation was mostly cardiac in nature and the locator is recommending follow-up in 2 weeks. Pulmonary-rao at the time of my evaluation, patient had no cough no wheezing no shortness of breath no chest pain. And her CT of the chest was reviewed with the patient, the findings were discussed with the patient and medical recommendation was that she should have a repeat CT of the chest in 3 months. Apparently the patient qualified for oxygen by the admitting physician, and she will be considered for discharge planning because she was cleared by cardiology. Labs on this patient were all reviewed, and her BNP level was elevated on admission 5940. Patient had negative PCR for COVID-19 infection. Patient was placed on Eliquis 5 mg twice a day by cardiology. She is already on DuoNeb updrafts 4 times a day and when n ecessary. And she does have an inhaler at home for her underlying COPD/albuterol. Review of Systems CONSTITUTIONAL: Denies fever or chills. CARDIOVASCULAR: As noted in HPI. Substernal chest discomfort. RESPIRATORY: Denies cough. Patient has chronic dyspnea on exertion presently asymptomatic during my evaluation. GASTROINTESTINAL: Negative. MUSCULOSKELETAL: Negative NEUROLOGIC: Negative. ENDOCRINE: Negative GENITOURINARY: Negative HEMATOLOGIC: Negative Past Medical History Past Medical History: Atrial Fibrillation, GERD/Reflux, Hypertension History of Any Multi-Drug Resistant Organisms: None Reported Past Surgical History: Tubal Ligation Additional Past Surgical History / Comment(s): Colonoscopy Past Anesthesia/Blood Transfusion Reactions: No Reported Reaction Additional Past Anesthesia/Blood Transfusion Reaction / Comment(s): NO PREVIOUS ANESTHESIA Past Psychological History: No Psychological Hx Reported Additional Psychological History / Comment(s): Pt resides with her significant other. She is independent. Smoking Status: Current every day smoker Past Alcohol Use History: Occasional Past Drug Use History: Marijuana Additional Drug Use History / Comment(s): Rare use of marijuana. a couple drinks every other night - Past Family History Father Family Medical History: Myocardial Infarction ([place]) Additional Family Medical History / Comment(s): Father of a [place] at the age of 54yrs. Mother Family Medical History: Cancer, Diabetes Mellitus Additional Family Medical History / Comment(s): BREAST CA Sister(s) Family Medical History: Cancer Medications and Allergies Home Medications Medication Instructions Recorded Confirmed Type Apixaban [Eliquis] 5 mg PO BID 30 Days #60 tab 04/12/21 Rx Metoprolol Tartrate [Lopressor] 50 mg PO TID 30 Days #90 tab 04/13/21 Rx Allergies Allergy/AdvReac Type Severity Reaction Status Date / Time No Known Allergies Allergy Verified 04/12/21 12:28 Physical Exam Vitals: Vital Signs Temp Pulse Pulse Pulse Pulse Pulse Resp 04/15/21 15:09 98.5 F 100 20 04/15/21 13:47 78 79 92 04/15/21 12:43 97.8 F 79 18 04/15/21 11:24 112 H 04/15/21 11:18 112 H 04/15/21 08:17 100 04/15/21 08:07 108 H 04/15/21 07:42 98.1 F 120 H 20 04/15/21 04:24 73 04/15/21 04:13 84 04/15/21 04:00 97.9 F 73 18 04/15/21 00:26 78 04/15/21 00:15 79 04/14/21 23:18 98.6 F 97 18 04/14/21 20:21 107 H 04/14/21 20:01 114 H 04/14/21 19:34 98.2 F 103 H 18 04/14/21 15:24 74 16 04/14/21 15:17 97.1 F L 91 18 BP Pulse Ox Pulse Ox Pulse Ox Pulse Ox 04/15/21 15:09 116/71 95 04/15/21 13:47 94 L 87 L 82 L 04/15/21 12:43 109/59 95 04/15/21 11:24 04/15/21 11:18 04/15/21 08:17 04/15/21 08:07 04/15/21 07:42 126/70 81 L 04/15/21 04:24 04/15/21 04:13 04/15/21 04:00 123/66 94 L 04/15/21 00:26 04/15/21 00:15 98 04/14/21 23:18 103/60 93 L 04/14/21 20:21 04/14/21 20:01 98 04/14/21 19:34 123/73 95 04/14/21 15:24 04/14/21 15:17 108/62 94 L Intake and Output 04/15/21 04/15/21 04/15/21 06:59 14:59 22:59 Intake Total 10 390 120 Balance 10 390 120 Intake: IV 10 10 Invasive Line 1 10 10 Oral 380 120 Other: Voiding Method Toilet # Voids 2 1 1 # Bowel Movements 1 Weight 60.4 kg CONSTITUTIONAL: Revealed a very pleasant 65-year-old female on room air, in no distress. Head: Atraumatic, normocephalic. HEENT: PERRLA, EOMI, nonicteric, no neck masses, no JVD, no stridor. CHEST EXAMINATION: Symmetrical chest expansion, diminished at the bases no crackles or rhonchi or wheezes.. HEART EXAMINATION: Irregular irregular rhythm, no S3 gallop, no murmur. Extremities: No clubbing edema or symptoms. Musculoskeletal: No deformities noted limitation in range of motion Neurologic: Alert and oriented 3 in no focal deficit Psychiatric: Normal mood affect and normal mental status examination. Skin: No rashes. Results - Laboratory Findings CBC and BMP: 04/14/21 03:48 04/14/21 03:48 PT/INR, D-dimer PT 10.6 sec (9.0-12.0) 04/13/21 02:28 INR 1.0 (<1.2) 04/13/21 02:28 D-Dimer 0.47 mg/L FEU (<0.60) 04/13/21 15:19 Abnormal lab findings: Abnormal Labs 04/12/21 04/12/21 04/12/21 11:39 11:39 20:01 MCV 104.5 H Lymphocytes # APTT 42.0 H Sodium Carbon Dioxide BUN Creatinine Glucose 104 H 04/13/21 04/13/21 04/13/21 02:28 02:28 02:28 MCV 105.0 H Lymphocytes # 0.5 L APTT 50.1 H Sodium 136 L Carbon Dioxide BUN 23 H Creatinine 1.11 H Glucose 168 H 04/14/21 04/14/21 03:48 03:48 MCV 105.1 H Lymphocytes # APTT Sodium Carbon Dioxide 33 H BUN 24 H Creatinine 1.07 H Glucose - Diagnostic Findings CT scan - chest: image reviewed (As noted in HPI) Assessment and Plan Assessment: Impression: Substernal chest pain, cardiac in nature unless otherwise, provoked by atrial fibrillation with RVR on presentation. Suspect underlying coronary artery disease patient should have further cardiac evaluation and possibly cardiac catheterization. Chronic obstructive pulmonary disease, presently inactive. Patient was counseled regarding smoking cessation. Chronic nicotine dependence. History of alcohol abuse. Abnormal CT of the chest however the findings are not very specific, and with recommended repeat CT of the chest with contrast in 3 months. Would also recommend follow-up on outpatient basis. Recommendation: If cleared by cardiology to be discharged home, patient could be discharged home. And should have definite cardiac workup and follow-up on outpatient basis. Pulmonary-rao patient needs to follow-up with me in [address] of the chest in 3 months. Albuterol 2 puffs 4 times a day when necessary. Must stop smoking and the patient was counseled regarding this. If patient qualifies for home oxygen would recommend that she goes home on oxygen at 2 L. Will follow the patient if she remains hospitalized otherwise she should definitely have outpatient follow-up. Time with Patient: Greater than 30
[2021-04-16] MEDS: IPRATROPIUM-ALBUTEROL 3 ML NEB INHALATION SCH ×4 (03:49→16:04)
--- NOTE | 2021-04-16 08:31 | DS ---
DISCHARGE SUMMARY DATE OF SERVICE: 04/15/2021 FINAL DIAGNOSES: 1. Atrial fibrillation fast ventricular rate controlled. 2. Chest pain possible unstable angina. Myocardial infarction ruled out. Rule out coronary artery disease. 3. Possible chronic obstructive pulmonary disease acute exacerbation with abnormal CT scan of the chest. 4. Rule out interstitial lung disease or fredis lesions. 5. Congestive heart failure unlikely ruled out. 6. Mild acute renal failure with acute tubular necrosis, present on admission improved. 7. Bilateral coronary artery calcifications in the CT scan. 8. Increased MCV. 9. History of continued ongoing nicotine dependence. 10.Family history of premature coronary artery disease, father at age 54. 11.History atrial fibrillation. 12.History of gastroesophageal reflux disease. 13.Hypertension. 14.History of colonoscopy. 15.History of tubal ligation. 16.Increased MCV. 17.Mild lymphopenia. 18.Chronic hypoxic respiratory failure. 19.FULL CODE. DISCHARGE DISPOSITION: The patient will be discharged in stable condition with guarded prognosis. Total time taken 35 minutes. HISTORY OF PRESENT ILLNESS: This 65-year-old woman with past medical history of multiple medical problems admitted with palpitation, atrial fibrillation, shortness of breath as well as chest pain, myocardial infarction ruled out. Cardiology saw the patient. Medication adjusted. Patient started on anticoagulation. Pulmonary Dr. Lockhart saw the patient and recommend outpatient followup. The patient was found to be severely hypoxic on ambulation and recommended home O2 and outpatient evaluation. Pulse ox was 82-87 percent on ambulation. This patient requires home O2. EXAM: Vitals stable. Cardiovascular S1, S2. Respirations: A few scattered rhonchi. Abdomen soft. Nervous System: No focal deficits. DISCHARGE ADVICE AND MEDICATION: 1. Diet is cardiac diet. 2. Activity limited until followup. 3. Follow up with Dr. Lockhart in 3 weeks. 4. Follow up with Dr. Perez in 2 weeks. 5. Follow up with Dr. Farias as recommended. 6. DuoNeb q.i.d. and p.r.n. 7. Eliquis 5 mg p.o. b.i.d. 8. Habitrol 14 daily. 9. Isoptin 40 mg p.o. t.i.d. 10.Metoprolol 50 mg p.o. t.i.d. 11.Medrol Dosepak. 12.Symbicort 1 puff b.i.d. Once again, the patient is being discharged in stable condition. Guarded prognosis. MMFIDELL / IJN: [id number] /
[2021-04-16] MEDS: NICOTINE 14MG/24HR PATCH TRANSDERM SCH (09:23)
[2021-04-16] MEDS: VERAPAMIL 40 MG TAB PO SCH (09:23)
[2021-04-16] MEDS: METOPROLOL TARTRATE 50 MG TAB PO SCH (09:23)
[2021-04-16] MEDS: APIXABAN 5 MG TAB PO SCH (09:23)
[2021-04-16 10:37] VITALS: RESP 18
--- NOTE | 2021-04-16 11:07 | P.PN ---
Subjective HISTORY OF PRESENTING ILLNESS This is a pleasant 65-year-old female past medical history significant for atrial fibrillation s/p previous cardioversion in 2019, chronic nicotine dependence, COPD. she does not follow with a medical radiation tech. We have been asked to see in consultation for chest pain and atrial fibrillation with RVR. Patient is seen and examined in the emergency department. She states she's been having symptoms of chest heaviness, shortness of breath, fatigue and orthopnea for a few days. Her chest pain is located in the center of her chest, it is nonradiating, nonexertional. She denies any associated diaphoresis, nausea, vomiting. She has been having symptoms of palpitations and exertional shortness of breath. She states she has a history of atrial fibrillation she was on Eliquis but stopped taking the medication because of the high cost of the medication. She denies any history of AL, coronary disease, diabetes. Her family history includes her father had a AL in his 50s. She states she has been told that she has a history of hypertension but does not take any medication. She states she smokes 1PPD and drinks alcohol daily about 2-3 gin and tonics per day. Patient was started on IV heparin and IV Cardizem at 5 mg/hr after 10mg IV cardizem bolus, her heart rates have improved. She states her symptoms have im proved since admission. 04/16/2021: Patient seen and examined at bedside, no acute distress. Her echocardiogram revealed EF 5560 percent. Telemetry reviewed patient atrial fibrillation with controlled ventricular rates. She is currently maintained on Eliquis 5 mg twice a day, metoprolol tartrate 50 mg 3 times a day, verapamil 40 mg 3 times a day. PHYSICAL EXAMINATION Blood pressure 113/56, heart rate 80, afebrile oxygen saturation is 92% on 2 L nasal cannula CONSTITUTIONAL: No apparent distress. HEENT: Neck Supple. No JVD CHEST EXAMINATION: Lungs are clear to auscultation. HEART EXAMINATION: Irregular rate and rhythm. S1, S2 heard. Systolic ejection murmur at right sternal border and apex. ABDOMEN: Soft, nontender. Positive bowel sounds. EXTREMITIES: no lower extremity edema and no calf tenderness. NEUROLOGIC EXAMINATION: Patient is awake, alert and oriented x3. ASSESSMENT Paroxysmal atrial fibrillation with rapid ventricular response, [id number] score History of hypertension History of cardioversion 2019 Chronic nicotine dependence COPD Daily alcohol use PLAN Continue current medical therapy with metoprolol tartrate, verapamil, and Eliquis From a cardiology perspective, patient is stable for discharge. Awaiting home oxygen therapy Patient to follow up with Dr. Perez in 2 weeks. Nurse Practitioner note has been reviewed, I agree with a documented findings and plan of care. Patient was seen and examined. Objective - Vital Signs Vital signs: Vital Signs Temp 97.8 F 04/16/21 08:00 Pulse 80 04/16/21 08:00 Resp 18 04/16/21 08:00 BP 113/56 04/16/21 08:00 Pulse Ox 92 L 04/16/21 08:00 Intake & Output 04/15/21 04/16/21 04/16/21 18:59 06:59 18:59 Intake Total 750 Balance 750 Weight 60.7 kg Intake: IV 10 Invasive Line 1 10 Oral 740 Other: Voiding Method Toilet Toilet # Voids 1 1 # Bowel Movements 1 - Labs CBC & Chem 7: 04/14/21 03:48 04/14/21 03:48
--- NOTE | 2021-04-16 11:11 | NM ---
EXAMINATION TYPE: NM pul vent and perfuse DATE OF EXAM: 04/14/2021 (made available for dictation on 04/16/2021) COMPARISON: CT from the same day HISTORY: 65-year-old female shortness of breath requiring oxygen, rule out PE. TECHNIQUE: Utilizing inhalation of 70.4 mCi Tc 99m DTPA aerosol and intravenous injection of 4.6 mCi of Tc 99m MAA, ventilation and perfusion images are acquired post injection in multiple projections. FINDINGS: There is extensive clumping of radiotracer within the airways. This can be seen in setting of COPD. T here is a focal moderate sized peripheral defect of both ventilation and perfusion along the lateral aspect of the right lower lobe best seen on the frontal images. No mismatch defects are identified. IMPRESSION: Solitary moderate-sized matched defect lateral basilar right lower lobe. This is intermediate probabi lity for pulmonary embolus. Clumping of tracer in the airways compatible with COPD.
--- NOTE | 2021-04-16 12:44 | P.PN ---
Subjective Progress Note Date: 04/16/21 Principal diagnosis: Respiratory failure. This is a 65-year-old female with history of paroxysmal atrial fibrillation, had previous cardioversion in 2019. History of COPD, [id number] smoking history, patient came in with 5 days history of sternal chest pain. Pain described as heaviness in the chest, started a few days ago while she was raking the leaves in her yard. Pain was not radiating, but it was definitely exertional. And it remained on and off for the last few days. Finally the patient decided to come into the emergency room, and she was noted to be in atrial fibrillation with RVR. Patient was seen by cardiology on consultation, he was placed on Cardizem drip, eventually transitioned to verapamil. CT of the chest was done on this patient, and it showed mostly COPD, it also showed nonspecific opacity in the lingula which I have reviewed with the patient, and it could be related to scarring could also be related to underlying malignancy. I did recommend a must repeat CT of the chest in 3 months. Patient was cleared by cardiology for discharge although her presentation was mostly cardiac in nature and the application software developer is recommending follow-up in 2 weeks. Pulmonary-rao at the time of my evaluation, patient had no cough no wheezing no shortness of breath no chest pain. And her CT of the chest was reviewed with the patient, the findings were discussed with the patient and medical recommendation was that she should have a repeat CT of the chest in 3 months. Apparently the patient qualified for oxygen by the admitting physician, and she will be considered for discharge planning because she was cleared by cardiology. Labs on this patient were all reviewed, and her BNP level was elevated on admission 5940. Patient had negative PCR for COVID-19 infection. Patient was placed on Eliquis 5 mg twice a day by cardiology. She is already on DuoNeb updrafts 4 times a day and when necessary. And she does have an inhaler at home for her underlying COPD/albuterol. Progress note dated 04/16/2021. This is a 65-year-old female, seen in room 351. She's not receiving any IV fluids. She is on 2 L nasal cannula. She's eating her lunch. The patient has a history of COPD from previous heavy tobacco use. She also had history of atrial fibrillation status post cardioversion 2018. The patient was admitted with substernal chest pain, thought to be cardiac in nature. She tells me today, that she may be discharged home today. She's not sure about that. She was seen by my partner yesterday in consultation. Her COPD is currently stable. Labs are reviewed. There are no new labs for today. Computed tomography scan did show some patchy nodular abnormalities in the inferior lingula and confluent consolidation in the medial basal left lower lobe. A repeat computed tomography scan in 3 months was recommended. Objective - Vital Signs Vital signs: Vital Signs Temp 97.8 F 04/16/21 08:00 Pulse 76 04/16/21 11:19 Resp 18 04/16/21 08:00 BP 113/56 04/16/21 08:00 Pulse Ox 92 L 04/16/21 08:00 Intake & Output 04/15/21 04/16/21 04/16/21 18:59 06:59 18:59 Intake Total 750 Balance 750 Weight 60.7 kg Intake: IV 10 Invasive Line 1 10 Oral 740 Other: Voiding Method Toilet Toilet # Voids 1 1 # Bowel Movements 1 - Exam No acute distress, oriented 3. Currently on 2 L with adequate saturations. No respiratory distress, audible wheezing, or use of accessory muscles. HEENT examination is grossly unremarkable. Neck supple. Full range of motion. No adenopathy thyromegaly or neck vein distention. Cardiovascular examination reveals regular rhythm rate. S1-S2 normal. No S3 or S4. No discernible murmur noted. Heart rate 76 bpm. Lungs reveal mild scattered rhonchi. No wheezes or crackles. Breath sounds are equal bilaterally. Mild prolongation on forced maneuver. Abdomen soft bowel sounds are heard. No masses or tenderness. Extremities are intact. No cyanosis clubbing or edema. Skin is without rash or lesion. Neurologic examination is brief but nonfocal. - Labs CBC & Chem 7: 04/14/21 03:48 04/14/21 03:48 Assessment and Plan Assessment: Chest pain, thought not to be cardiac on this admission. Atrial fibrillation with RVR, recovered. COPD, stable. Chronic nicotine dependence. History of alcohol abuse. Abnormal computed tomography scan, with follow-up recommended 3 months. Plan: Plan dated 04/16/2021. The patient is being considered for possible discharge. She'll follow with my partner and will need a follow-up computed tomography scan is recommended in 3 months. Clinically, her COPD is stable. The patient should be seen by my partner in the office for pulmonary function testing. Follow-up computed tomography scan in 3 months is recommended. She is counseled about the importance of smoking cessation. Time with Patient: Less than 30
[2021-04-16 14:58] VITALS: BP 125/73; PULSE 88; TEMP 98.3
--- NOTE | 2021-04-16 15:00 | PN ---
PROGRESS NOTE DATE OF SERVICE: 04/15/2021. This 65-year-old woman who was admitted with atrial fibrillation, chest pain, shortness of breath being closely monitored. No chest pain. No palpitations. No fever. Multiple consultants are following the patient closely. PHYSICAL EXAMINATION: Alert and orient x3. The pulse is 78, blood pressure 112/72, respirations 17, temperature 97.8, pulse ox 94% on 2 L. HEENT: Conjunctivae normal. NECK: No JVD. Respiratory System: Breath sounds diminished at the bases. A few scattered rhonchi. ABDOMEN soft. NERVOUS SYSTEM: No focal deficits. LABS: WBC 9.2, hemoglobin 12.9, sodium 132, potassium 4.9. ASSESSMENT: 1. Atrial fibrillation with fast ventricular rate, controlled. 2. Chest pain, possible unstable angina. 3. Possible chronic obstructive pulmonary disease, acute exacerbation, abnormal CT scan of the chest. 4. Rule out interstitial lung disease with nodular lesions. 5. Congestive heart failure unlikely ruled out. 6. Mild acute renal failure with acute tubular necrosis, present on admission, improved. 7. Bilateral coronary artery calcification in the CT scan. 8. Increased MCV. 9. History of continued ongoing nicotine dependence. 10.Family history of premature coronary disease with father age 54. 11.History of atrial fibrillation. 12.History of gastroesophageal reflux disease. 13.Hypertension. 14.History of colonoscopy. 15.History of . 16.Increased MCV. 17.Mild lymphopenia. 18.Chronic hypoxic respiratory failure. 19.FULL CODE. RECOMMENDATIONS AND DISCUSSION: Recommend to continue current medications, management and symptomatic treatment. We will continue current medications and home O2. Once home O2 is obtained and the patient is cleared by multiple consultants, the patient will be discharged home. Further recommendations to follow. MMODL / IJN: [id number] /
--- NOTE | 2021-04-16 17:57 | DS ---
DISCHARGE SUMMARY DISCHARGE ADDENDUM: DATE OF SERVICE: 04/16/2021 This 65-year-old woman who was admitted with chest pain, atrial fibrillation, possible COPD, and shortness of breath has improved significantly. The patient also had chronic hypoxic respiratory failure. Home O2 is being arranged. Pulmonary and Cardiology have cleared the patient for discharge. Please refer to the previous dictation for further details and recommended followup. I recommend outpatient followup with Cardiology for possible stress test, outpatient followup with Pulmonary for follow-up CT scans and PFTs and other evaluation. Follow with Dr. Farias as primary care. Otherwise, this patient is stable but overall prognosis is guarded. Discussed with the patient. MMODL / IJN: [id number] /
== END 2021-04-16 16:32 | disposition home or self-care (01) | DRG 308 ==
LOC: EC 10:34 → 3SCARD 13:20
PROVIDERS: ADMIT Internal Medicine; ATTEND Internal Medicine
DX: I48.19 Other persistent atrial fibrillation (principal); N17.0 Acute kidney failure with tubular necrosis; J96.11 Chronic respiratory failure with hypoxia; J43.9 Emphysema, unspecified; I10 Essential (primary) hypertension; I27.20 Pulmonary hypertension, unspecified; D72.810 Lymphocytopenia; I25.10 Atherosclerotic heart disease of native coronary artery without angina pectoris; F17.210 Nicotine dependence, cigarettes, uncomplicated; Z20.822 Contact with and (suspected) exposure to COVID-19; Z79.01 Long term (current) use of anticoagulants; Z79.51 Long term (current) use of inhaled steroids; Z79.82 Long term (current) use of aspirin; Z79.899 Other long term (current) drug therapy; Z98.51 Tubal ligation status; Z86.79 Personal history of other diseases of the circulatory system; R07.89 Other chest pain; Z71.6 Tobacco abuse counseling
CPT/HCPCS: 36415; 71045; 71046; 71250; 78582; 80048; 80053; 83735; 83880; 84443; 84484; 85025; 85379; 85610; 85730; 87635; 93005; 93306; 93970; 94640; 94760; 99285

== ENCOUNTER → 2021-05-30 | Day surgery (SDC) | payer MEDICARE ==
[2021-05-24 10:23] VITALS: BMI 22.6
[~2021-05-30] MED LIST changes: +ATROPINE SULFATE 0.1 MG/ML 10ML SYRINGE ONE; -DEXAMETHASONE SOD PHOSPHATE 10 MG/ML 1 ML VIAL IV ONE; +DOPamine DRIP 800 MG in DEXTROSE/WATER 1 250ML.BAG IV ONE; +DOPamine DRIP 800 MG in WATER FOR INJECTION 1 250ML.BAG IV SCH; -LIDOCAINE 1% 20 ML VIAL (10MG/ML) FOR IV START INTRADERMA PRN; +PROPOFOL 10 MG/ML 20 ML VIAL IV ONE; +SODIUM CHLORIDE 0.9% 1,000 ML IV ONE; +SODIUM CHLORIDE 0.9% 1,000 ML IV SCH
[2021-05-30 08:08] VITALS: TEMP 97.5
[2021-05-30 08:43] LABS: Calcium 8.6 mg/dL (8.4-10.2); Potassium 4.9 mmol/L (3.5-5.1)
[2021-05-30 12:16] VITALS: BP 115/58; PULSE 50; RESP 16
--- NOTE | 2021-05-30 15:56 | PCN ---
PROCEDURE NOTE DATE OF SERVICE: 05/30/2021. PROCEDURE: Electrical cardioversion CLINICAL INFORMATION: Mrs. Aide Menon is a 65-year-old lady with a known history of smoking, COPD, requiring home oxygen periodically. She also has severe pulmonary hypertension with enlarged left atrium. Ejection fraction is well preserved. She has been in atrial fibrillation, was seen by me when she was hospitalized at [facility]. After adequately controlling the rate and anticoagulation, I recommended electrical cardioversion. The success rate is slow. She has been placed on Eliquis 5 mg b.i.d., amiodarone 200 mg b.i.d., and metoprolol tartrate 50 mg b.i.d. She also is on verapamil 40 mg b.i.d. She was brought in for the procedure electively after due discussion regarding risks, benefits, and options. PROCEDURE NOTE: Under the influence of ultra short-acting intravenous anesthetic agent with the attendance of the anesthesiologist, a single 100 joule shock was delivered to the chest wall. The patient had a very long pause requiring atropine. Then she went into a sinus bradycardia. She received a total of 1.5 mg of atropine and a brief CPR of about 5 seconds. However, patient was in sinus rhythm at a rate of about 35 to 40 beats per minute. Blood pressure was low at about 90 systolic. I started her on a dopamine drip at 5 mics. Her heart rate was in the mid 40s. Blood pressure was 110 systolic and patient was fully awake, neurologically intact. This was a successful electrical cardioversion, which is complicated by prolonged pause and bradycardia requiring atropine and dopamine. Details were discussed with the patient and her . Unfortunately, after she came into the hospital, she had a Covid test which turned out positive. This was also explained to the patient and her . She received a J&J vaccine in August of this year. I am recommending that we will give her antibodies, but this will be done later on today. She is asymptomatic. I will give her antibodies prior to discharge. I am hoping we can discharge her today once the heart rate comes up and we will wean off the dopamine. I will also discharge her without amiodarone or verapamil or metoprolol. I will see her in the office tomorrow and make further recommendations. If however, her heart rate remains low, then I will keep her in the hospital overnight. I discussed my thoughts in detail with the patient as well as her . We will try to get her monoclonal antibodies for her Covid infection. MMCONOR / ANDREWN: [id number] /
== END ==
LOC: CATHCVL 07:33
PROVIDERS: ATTEND Internal Medicine Interventional Cardiology
DX: I48.19 Other persistent atrial fibrillation (principal); I25.10 Atherosclerotic heart disease of native coronary artery without angina pectoris; J44.9 Chronic obstructive pulmonary disease, unspecified; I27.20 Pulmonary hypertension, unspecified; I10 Essential (primary) hypertension; F17.210 Nicotine dependence, cigarettes, uncomplicated; Z20.822 Contact with and (suspected) exposure to COVID-19; Z99.81 Dependence on supplemental oxygen; Z79.01 Long term (current) use of anticoagulants; Z79.51 Long term (current) use of inhaled steroids; Z79.899 Other long term (current) drug therapy; Z82.49 Family history of ischemic heart disease and other diseases of the circulatory system
CPT/HCPCS: 92960; 80048; 87635; J0461; J2704; J1265; 93005

== ENCOUNTER → 2021-08-20 | Outpatient (CLI) | payer MEDICARE ==
--- NOTE | 2021-08-20 21:08 | CT ---
EXAMINATION TYPE: CT chest w con DATE OF EXAM: 08/20/2021 COMPARISON: CT dated 04/14/2021 HISTORY: COPD. CT DLP: 359 mGycm Automated exposure control for dose reduction was used. TECHNIQUE: CT scan of the chest is performed with IV Contrast, patient injected with 80ml mL of Isovue 300. FINDINGS: LUNGS: Persistent COPD changes with centrilobular emphysematous changes mainly seen in the upper lobe s. Small left pleural effusion. No right-sided pleural effusion. Small atelectasis in the lingula wit h linear atelectasis in the left lung base. Unremarkable lungs otherwise. Patent central airways. MEDIASTINUM: Cardiomegaly with large left atrium, please correlate with echocardiographic results. Co ronary and arterial vascular calcifications. The pulmonary trunk measures 2.9 cm. No sizable pericard ial effusion. Persistent retrocaval precarinal 11 mm lymph node. No other pathologically enlarged lym ph nodes in the chest. OTHER: Few left renal cortical defects probably related to previous infarct/infection. Severe stenos is of the origins of the superior mesenteric artery and celiac trunk, yet patent distally. Healing fr acture of the anterior aspect of the right third rib. Heterogeneous area is seen at the superior aspe ct of the body of the sternum, possibly representing a healing fracture, not appreciated in January 2019 CT or the previous CT scan, further bone scan assessment can be considered. IMPRESSION: Persistent COPD changes with small left pleural effusion as well as cardiomegaly. No definite acute p ulmonary abnormality identified. Heterogenous area is seen in the body of the sternum probably representing a healing fracture with an other healing fracture of the anterior aspect of the right third rib, please correlate clinically. Fu rther bone scan assessment can be considered. Other interval changes and incidental findings as descr ibed above.
== END | disposition home or self-care (01) ==
LOC: RADCTMAIN 12:53
PROVIDERS: ATTEND Internal Medicine Critical Care Medicine
DX: J44.9 Chronic obstructive pulmonary disease, unspecified (principal); J90 Pleural effusion, not elsewhere classified; I51.7 Cardiomegaly
CPT/HCPCS: 82565; 84520; 71260; 36415; Q9967

== ENCOUNTER 2021-08-22 05:53 | Day surgery (SDC) | payer MEDICARE ==
[2021-08-17 13:16] VITALS: BMI 23.1
[~2021-08-22 05:53] MED LIST changes: -ATROPINE SULFATE 0.1 MG/ML 10ML SYRINGE ONE; -DOPamine DRIP 800 MG in DEXTROSE/WATER 1 250ML.BAG IV ONE; -DOPamine DRIP 800 MG in WATER FOR INJECTION 1 250ML.BAG IV SCH; +LACTATED RINGERS 1,000 ML IV SCH; -PROPOFOL 10 MG/ML 20 ML VIAL IV ONE; -SODIUM CHLORIDE 0.9% 1,000 ML IV ONE; -SODIUM CHLORIDE 0.9% 1,000 ML IV SCH
[2021-08-22] MEDS ORDERED: SODIUM CHLORIDE 0.9% 1,000 ML IV SCH (06:00)
[2021-08-22 06:21] VITALS: TEMP 98.1
[2021-08-22 06:48] LABS: Potassium 4.6 mmol/L (3.5-5.1)
[2021-08-22] MEDS ORDERED: LIDOCAINE 1% INJ 10MG/ML (20 ML MDV) ONE (07:29)
[2021-08-22] MEDS ORDERED: PROPOFOL 10 MG/ML 20 ML VIAL IV ONE (07:29)
[2021-08-22] MEDS ORDERED: ATROPINE SULFATE 0.1 MG/ML 10ML SYRINGE ONE (07:29)
[2021-08-22 08:03] VITALS: RESP 16
--- NOTE | 2021-08-22 09:28 | PCN ---
PROCEDURE NOTE ELECTRICAL CARDIOVERSION REPORT: DATE OF SERVICE: 08/22/2021 PROCEDURE: Electrical cardioversion. INDICATION: Persistent atrial fibrillation in spite of pharmacological efforts. CLINICAL INFORMATION: This lady has history of smoking, COPD and persistent atrial fibrillation. I brought her for cardioversion a couple of months ago, then she developed significant bradycardia, but she was on amiodarone at that time and also had COVID infection. She has recovered well converted to sinus rhythm but has been back to atrial fibrillation. I recommended repeat cardioversion and brought her in for the procedure. She is on metoprolol tartrate 50 mg in the morning, 25 mg in the evening, and verapamil 40 mg b.i.d. She is not on amiodarone. She was brought in for electrical cardioversion after due discussion regarding risks, benefits and options. PROCEDURE NOTE: Under the influence of [id number] intravenous anesthetic agent with the attendance of the anesthesiologist, a single shock was delivered of 200 joules with anterior and posterior patches. Patient converted to sinus rhythm, developed long pauses requiring atropine 1 mg. However, she is hemodynamically stable, remains in sinus rhythm and is neurologically intact. Patient had bradycardia that lasted maybe 1 or 2 minutes with a heart rate in the 30s, but with atropine she is at 55 beats per minute. Blood pressure 130/70. Rhythm is sinus. Successful electrical cardioversion. Details were discussed with the patient and , and I expect she will be discharged later on today, but I will keep her only on 25 mg of metoprolol daily and verapamil 40 mg b.i.d. combination. Will see her in the office in about a week or less. MMODL / IJN: [id number] / ABBEY
[2021-08-22 10:42] VITALS: BP 114/55; PULSE 58
== END 2021-08-22 10:50 | disposition home or self-care (01) ==
LOC: CATHCVL 05:53
PROVIDERS: ATTEND Internal Medicine Interventional Cardiology
DX: I48.19 Other persistent atrial fibrillation (principal); I25.10 Atherosclerotic heart disease of native coronary artery without angina pectoris; J44.9 Chronic obstructive pulmonary disease, unspecified; Z57.31 Occupational exposure to environmental tobacco smoke; Z20.822 Contact with and (suspected) exposure to COVID-19; Z82.49 Family history of ischemic heart disease and other diseases of the circulatory system; Z79.01 Long term (current) use of anticoagulants; Z79.899 Other long term (current) drug therapy; F17.200 Nicotine dependence, unspecified, uncomplicated
CPT/HCPCS: 92960; 80048; 87635; J2001; J0461; J2704

== ENCOUNTER → 2021-09-20 | Day surgery (SDC) | payer MEDICARE ==
[2021-09-18 10:15] VITALS: BMI 23.3
[~2021-09-20] MED LIST changes: +ALPRAZolam 0.25 MG TAB PO PRN; +ALPRAZolam 0.5 MG TAB PO PRN; +APIXABAN 5 MG TAB PO SCH; +ASCORBIC ACID 500 MG TAB PO SCH; +ASPIRIN 325 MG TAB PO ONE; +ATORVASTATIN 40 MG TAB PO SCH; +ATORVASTATIN 80 MG TAB PO ONE; +CYANOCOBALAMIN 500 MCG TAB PO SCH; +HEPARIN SODIUM 1,000 UN/ML (10ML VL) IV ONE; +HEPARIN SODIUM 1,000 UN/ML (10ML VL) ONE; +HEPARIN SODIUM,PORCINE 10,000 UNIT in SODIUM CHLORIDE 0.9% 1,000 ML IRRIGATION PRN; +HEPARIN SODIUM,PORCINE 2,500 UNIT in SODIUM CHLORIDE 0.9% 250 ML IRRIGATION PRN; +IOPAMIDOL-370 100ML BTL INJ ONE; +IPRATROPIUM-ALBUTEROL 3 ML NEB INHALATION PRN; -LACTATED RINGERS 1,000 ML IV SCH; +LIDOCAINE 1% INJ 10MG/ML (20 ML MDV) SQ ONE; +LIDOCAINE 1% PF 10 MG/ML (5 ML AMP) SQ ONE; +METOPROLOL TARTRATE 50 MG TAB PO SCH; +MULTIVITAMINS, THERA 1 EACH TAB PO SCH; +NITROGLYCERIN SL TABS 0.4 MG TAB SUBLINGUAL PRN; +SODIUM CHLORIDE 0.9% 1,000 ML in EMPTY BAG 1 BAG IV SCH; +SYMBICORT 160-4.5 MCG INHALER INHALATION SCH; +VERAPAMIL 2.5 MG/ML 2 ML AMP ONE; +VERAPAMIL SYRINGE (5 MG/10 ML) INTRAARTER ONE; +fentaNYL (PF) 50 MCG/ML 2 ML AMP IV ONE; +fentaNYL (PF) 50 MCG/ML 2 ML AMP ONE
[2021-09-20 07:48] VITALS: TEMP 97.7
[2021-09-20 07:58] LABS: Basophils # (A) 0.1 k/uL (0-0.2); Basophils % (A) 1 %; Eosinophils # (A) 0.2 k/uL (0-0.7); Eosinophils % (A) 2 %; HCT 52.5 % (34.0-46.0); HGB 17.2 gm/dL (11.4-16.0); Lymphocytes # (A) 1.8 k/uL (1.0-4.8); Lymphocytes % (A) 14 %; MCH 34.5 pg (25.0-35.0); MCHC 32.7 g/dL (31.0-37.0); MCV 105.3 fL (80.0-100.0); Macrocytosis Moderate; Mean Platelet Volume 7.4; Monocytes # (A) 0.9 k/uL (0-1.0); Monocytes % (A) 7 %; Neutrophils # (A) 9.6 k/uL (1.3-7.7); Neutrophils % (A) 76 %; Platelet Count 310 k/uL (150-450); RBC 4.98 m/uL (3.80-5.40); RDW 13.7 % (11.5-15.5); WBC 12.7 k/uL (3.8-10.6)
[2021-09-20] MEDS: MIDAZOLAM 2 MG/2 ML VIAL IV ONE ×2 (09:00→09:18)
--- NOTE | 2021-09-20 12:27 | CC ---
CARDIAC CATHETERIZATION REPORT DATE OF SERVICE: 09/20/2021 PROCEDURE: Left heart catheterization and coronary angiography. PERFORMED BY: Dr. Derrek Perez. Moderate conscious sedation time was 42 minutes. Patient was administered Versed and fentanyl. Oxygen saturation, hemodynamics and EKG were monitored closely. CLINICAL INFORMATION: Mrs. Aide Menon is a 66-year-old lady with history of hypertension, hyperlipidemia, smoking and severe COPD. She also has chronic persistent atrial fibrillation, unresponsive to electrical cardioversion on two occasions. She converted to sinus rhythm, developed bradycardia, but went back into atrial fibrillation. Because of symptoms of chest tightness, pressure, shortness of breath, significant risk factors, I am recommending coronary angiography after due discussion regarding risks, benefits and options. PROCEDURE NOTE: Under local anesthesia and strict aseptic precautions, I attempted right radial access. I was unable to get good access and the pulse was also somewhat feeble. I therefore abandoned the procedure and applied a pressure bandage. I then went from the right femoral approach. With a micropuncture needle technique, I gained access. There was a lot of calcification in the iliac system. I had to use a Glidewire. Using standard Kleber catheters I performed coronary angiography, and the same right catheter was used to check LV pressure, but LV gram was not performed. The sheath was taken out and Angio-Seal device used to secure hemostasis and she was sent to the room in stable condition. Findings were discussed with the patient and her . I am recommending that she will be on metoprolol tartrate 25 mg two tablets in the morning and evening. We will discontinue verapamil and increase the atorvastatin to 40 mg daily and continue Eliquis 5 mg b.i.d. from tomorrow. CARDIAC CATHETERIZATION FINDINGS: The left ventricular end-diastolic pressure was about 12 mmHg without any gradient across the aortic valve. CORONARY ANGIOGRAPHY FINDINGS: RIGHT CORONARY ARTERY: This is totally occluded after a small acute marginal branch. No antegrade flow is noted. LEFT MAIN CORONARY ARTERY: This is a tortuous vessel free of significant disease that has no more than 10% narrowing and then it trifurcates into LAD, ramus and circumflex. The left main itself is free of significant disease. LEFT ANTERIOR DESCENDING CORONARY ARTERY: Good-caliber vessel, has a 40% ostial lesion as it comes off from the left main. The caliber improves and the vessel runs all the way to the apex, supplying a sizable amount of myocardium. No significant disease in the rest of the LAD. It gives off septal and diagonal branches. LEFT POSTERIOR CIRCUMFLEX CORONARY ARTERY: Small-caliber, small-distribution vessel with minor diffuse irregularities. Limited amount of myocardium supplied by this vessel. RAMUS INTERMEDIUS: This is a good-caliber vessel, supplies a sizable amount of myocardium, has no significant disease. Tortuous. Runs laterally and supplies a sizable amount of myocardium. Ramus intermedius therefore is a good-caliber and good- distribution vessel. The circumflex system and specifically the ramus system provides rich collaterals to the distal branches of the RCA. Most of the collaterals are coming from the first septal branch as well as from the ramus intermedius. COLLATERAL CIRCULATION: There is a rich network of collaterals from the left system, specifically the septal branch of LAD and ramus, that provide collaterals to for the distal RCA and its branches. FINAL IMPRESSION: This patient has a dominant RCA which is totally occluded, filled by collaterals from the left system. Normal filling pressures. No gradient. Left main has no significant disease and circumflex is small, has no significant disease. Ramus is a good-caliber, good-distribution, disease-free vessel. LAD has a 45% ostial lesion with good flow. RECOMMENDATIONS: I am recommending aggressive medical therapy with increase in statins. I am suggesting that she should quit smoking, given her significant CAD. I discussed with the patient and her . She will be discharged today and I will see her in the office in one week. Will discontinue Verapamil and place her on metoprolol tartrate 50 mg b.i.d. Eliquis 5 mg b.i.d. will be resumed from tomorrow. Atorvastatin will be increased from 20 to 40 mg daily. We will discontinue verapamil. Patient will be discharged today and I will see her in the office in a week. MMODL / IJN: [id number] /
[2021-09-20 12:58] VITALS: RESP 18
[2021-09-20 15:28] VITALS: BP 140/88; PULSE 108
== END ==
LOC: CATHCVL 07:23
PROVIDERS: ATTEND Internal Medicine Interventional Cardiology
DX: I25.10 Atherosclerotic heart disease of native coronary artery without angina pectoris (principal); I25.82 Chronic total occlusion of coronary artery; I48.19 Other persistent atrial fibrillation; E78.5 Hyperlipidemia, unspecified; I10 Essential (primary) hypertension; J44.9 Chronic obstructive pulmonary disease, unspecified; Z20.822 Contact with and (suspected) exposure to COVID-19
CPT/HCPCS: 93458; 85025; 87635; C1760; C1894 ×2; C1769 ×4; J2250; J2001 ×2; J3010; Q9967

== ENCOUNTER 2021-09-28 12:57 | Inpatient (IN) | payer MEDICARE ==
[2021-09-28] MEDS ORDERED: MAG HYDROX/AL HYDROX/SIMETH 30 ML, HYOSCYAMINE ELIXIR 10 ML, LIDOCAINE VISCOUS 2% 10 ML PO STA ×3 (16:35)
--- NOTE | 2021-09-28 16:43 | ED ---
Abdominal Pain HPI - General Chief Complaint: Abdominal Pain Stated Complaint: Abd Pain Time Seen by Provider: 09/28/21 16:25 Source: patient Mode of arrival: ambulatory Limitations: no limitations - History of Present Illness Initial Comments: Patient is a 66-year-old female presents to the emergency department with a chief complaint of abdominal pain. Patient states her symptoms started 10 days ago. Describes it as generalized abdominal pain with no radiation. No back pain. She states she had intermittent nausea for the first couple days that has since resolved. No fever, chills, vomiting, or diarrhea. Normal bowel movements with last bowel movement yesterday, nonbloody. Patient has been tolerating oral intake okay however states her appetite has decreased. No burning with urination, increased urinary frequency/urgency, or blood in the urine. No chest pain or shortness of breath. Patient does have history of atrial fibrillation on Eliquis. No upper respiratory symptoms or recent sick contacts. No previous abdominal surgeries. Patient does admit to tobacco use with [id number] history. She denies family history of aneurysm. - Related Data Home Medications Medication Instructions Recorded Confirmed Metoprolol Tartrate 50 mg PO BID 08/17/21 09/28/21 Atorvastatin [Lipitor] 40 mg PO HS 09/28/21 09/28/21 Digoxin [Lanoxin] 125 mcg PO DAILY 09/28/21 09/28/21 Previous Rx's Medication Instructions Recorded Apixaban [Eliquis] 5 mg PO BID 30 Days #60 tab 04/12/21 Allergies Allergy/AdvReac Type Severity Reaction Status Date / Time No Known Allergies Allergy Verified 09/28/21 18:24 Review of Systems ROS Statement: Those systems with pertinent positive or pertinent negative responses have been documented in the HPI. ROS Other: All systems not noted in ROS Statement are negative. Past Medical History Past Medical History: Atrial Fibrillation, COPD, Hyperlipidemia, Hypertension History of Any Multi-Drug Resistant Organisms: None Reported Past Surgical History: Tubal Ligation Additional Past Surgical History / Comment(s): Colonoscopy. Cardioversion Past Anesthesia/Blood Transfusion Reactions: No Reported Reaction Additional Past Anesthesia/Blood Transfusion Reaction / Comment(s): NO PREVIOUS ANESTHESIA Past Psychological History: No Psychological Hx Reported Smoking Status: Current every day smoker Past Alcohol Use History: Occasional Past Drug Use History: None Reported - Past Family History Father Family Medical History: Myocardial Infarction (SD) Additional Family Medical History / Comment(s): Father of a SD at the age of 54yrs. Mother Family Medical History: Cancer, Diabetes Mellitus Additional Family Medical History / Comment(s): BREAST CA Sister(s) Family Medical History: Cancer General Exam Limitations: no limitations General appearance: alert, in no apparent distress Head exam: Present: atraumatic, normocephalic, normal inspection Eye exam: Present: normal appearance, PERRL, EOMI. Absent: scleral icterus, conjunctival injection, periorbital swelling ENT exam: Present: mucous membranes moist Neck exam: Present: normal inspection Respiratory exam: Present: normal lung sounds bilaterally. Absent: respiratory distress, wheezes, rales, rhonchi, stridor Cardiovascular Exam: Present: tachycardia, irregular rhythm (Patient has known atrial fibrillation), normal heart sounds. Absent: regular rate, normal rhythm, systolic murmur, diastolic murmur, rubs, gallop, clicks GI/Abdominal exam: Present: soft, distended (Moderately), tenderness (Epigastric region), normal bowel sounds, hypoactive bowel sounds. Absent: guarding, rebound, rigid Neurological exam: Present: alert, oriented X3, CN II-XII intact Psychiatric exam: Present: normal affect, normal mood Skin exam: Present: warm, dry, intact, normal color. Absent: rash Course Vital Signs 09/28/21 09/28/21 09/28/21 13:03 17:50 19:56 Temperature 97.8 F Pulse Rate 80 105 H 111 H Respiratory 22 20 18 Rate Blood Pressure 120/64 120/68 92/58 O2 Sat by Pulse 97 96 94 L Oximetry 09/28/21 09/28/21 20:49 21:30 Temperature Pulse Rate 92 92 Respiratory 18 18 Rate Blood Pressure 117/73 117/75 O2 Sat by Pulse 97 96 Oximetry Medical Decision Making - Medical Decision Making This is a 66-year-old female who presents with a 10 day history of generalized abdominal pain. Thorough history and examination were performed. Patient looks well and is in no apparent distress. She is hemodynamically stable. She is afebrile. No nausea, vomiting, or diarrhea. There is moderate distention of the abdomen with tenderness in the epigastric region. Bowel sounds are hypoactive. With patient's physical exam there is concern for bowel instruction. With her extensive heart history, long smoking history, and epigastric tenderness, there is some suspicion for abdominal aortic aneurysm. Laboratory studies, EKG, and CT of the abdomen and pelvis will be obtained. Laboratory studies are relatively unremarkable. CT is significant for a suspected partial large bowel obstruction secondary to eccentric bowel wall thickening of the sigmoid colon which is suspicious for primary malignancy. Pain was controlled with morphine and Dilaudid. Patient remained in atrial fibrillation with rapid ventricular response during her emergency stay. Ventricular rate fluctuating between the the 110s-140s. Patient does not have chest pain or palpitations. Cardizem was initiated which provided adequate rate control. Case discussed with Dr. Galvan. Patient will be admitted to his service with consult to general surgery, oncology, and cardiology. She will be NPO at midnight and Eliquis will be held per Dr. Carranza. On reevaluation at 21:45 patient states she is feeling a lot better. Her pain is minimal. Pulse is controlled. Results discussed in detail with patient. She verbalizes understanding and is agreeable to admission. Dr. Constantino is my attending. - Lab Data Result diagrams: 09/28/21 17:22 09/28/21 17:22 Lab Results 09/28/21 09/28/21 09/28/21 Range/Units 17:22 17:22 17:22 WBC 4.6 (3.8-10.6) k/uL RBC 4.94 (3.80-5.40) m/uL Hgb 16.2 H (11.4-16.0) gm/dL Hct 51.6 H (34.0-46.0) % MCV 104.5 H (80.0-100.0) fL MCH 32.8 (25.0-35.0) pg MCHC 31.4 (31.0-37.0) g/dL RDW 13.4 (11.5-15.5) % Plt Count 365 (150-450) k/uL MPV 7.1 Neutrophils % (Manual) 39 % Band Neuts % (Manual) 11 % Lymphocytes % (Manual) 29 % Monocytes % (Manual) 20 % Basophils % (Manual) 1 % Neutrophils # (Manual) 2.30 (1.3-7.7) k/uL Lymphocytes # (Manual) 1.33 (1.0-4.8) k/uL Monocytes # (Manual) 0.92 (0-1.0) k/uL Basophils # (Manual) 0.05 (0-0.2) k/uL Nucleated RBCs 0 (0-0) /100 WBC Manual Slide Review Performed Toxic Vacuolation Present Macrocytosis Slight PT 12.4 H (9.0-12.0) sec INR 1.2 H (<1.2) APTT 26.1 (22.0-30.0) sec Sodium (137-145) mmol/L Potassium (3.5-5.1) mmol/L Chloride (98-107) mmol/L Carbon Dioxide (22-30) mmol/L Anion Gap mmol/L BUN (7-17) mg/dL Creatinine (0.52-1.04) mg/dL Est GFR (CKD-EPI)AfAm (>60 ml/min/1.73 sqM) Est GFR (CKD-EPI)NonAf (>60 ml/min/1.73 sqM) Glucose (74-99) mg/dL Calcium (8.4-10.2) mg/dL Total Bilirubin (0.2-1.3) mg/dL AST (14-36) U/L ALT (4-34) U/L Alkaline Phosphatase (38-126) U/L Troponin I (0.000-0.034) ng/mL Total Protein (6.3-8.2) g/dL Albumin (3.5-5.0) g/dL Lipase (23-300) U/L Urine Color [place] Urine Appearance Cloudy H (Clear) Urine pH 5.5 (5.0-8.0) Ur Specific [place] 1.034 (1.001-1.035) Urine Protein 1+ H (Negative) Urine Glucose (UA) Negative (Negative) Urine Ketones 1+ H (Negative) Urine Blood Negative (Negative) Urine Nitrite Negative (Negative) Urine Bilirubin 1+ H (Negative) Urine Urobilinogen 6.0 (<2.0) mg/dL Ur Leukocyte Esterase Negative (Negative) Urine RBC 4 (0-5) /hpf Urine WBC 4 (0-5) /hpf Ur Squamous Epith Cells 6 H (0-4) /hpf Urine Bacteria Rare H (None) /hpf Hyaline Casts 7 H (0-2) /lpf Urine Mucus Many H (None) /hpf 09/28/21 09/28/21 Range/Units 17:22 17:22 WBC (3.8-10.6) k/uL RBC (3.80-5.40) m/uL Hgb (11.4-16.0) gm/dL Hct (34.0-46.0) % MCV (80.0-100.0) fL MCH (25.0-35.0) pg MCHC (31.0-37.0) g/dL RDW (11.5-15.5) % Plt Count (150-450) k/uL MPV Neutrophils % (Manual) % Band Neuts % (Manual) % Lymphocytes % (Manual) % Monocytes % (Manual) % Basophils % (Manual) % Neutrophils # (Manual) (1.3-7.7) k/uL Lymphocytes # (Manual) (1.0-4.8) k/uL Monocytes # (Manual) (0-1.0) k/uL Basophils # (Manual) (0-0.2) k/uL Nucleated RBCs (0-0) /100 WBC Manual Slide Review Toxic Vacuolation Macrocytosis PT (9.0-12.0) sec INR (<1.2) APTT (22.0-30.0) sec Sodium 138 (137-145) mmol/L Potassium 4.1 (3.5-5.1) mmol/L Chloride 99 (98-107) mmol/L Carbon Dioxide 29 (22-30) mmol/L Anion Gap 10 mmol/L BUN 23 H (7-17) mg/dL Creatinine 0.93 (0.52-1.04) mg/dL Est GFR (CKD-EPI)AfAm 74 (>60 ml/min/1.73 sqM) Est GFR (CKD-EPI)NonAf 64 (>60 ml/min/1.73 sqM) Glucose 106 H (74-99) mg/dL Calcium 8.9 (8.4-10.2) mg/dL Total Bilirubin 1.0 (0.2-1.3) mg/dL AST 28 (14-36) U/L ALT 16 (4-34) U/L Alkaline Phosphatase 106 (38-126) U/L Troponin I <0.012 (0.000-0.034) ng/mL Total Protein 6.8 (6.3-8.2) g/dL Albumin 3.9 (3.5-5.0) g/dL Lipase 75 (23-300) U/L Urine Color Urine Appearance (Clear) Urine pH (5.0-8.0) Ur Specific [place] (1.001-1.035) Urine Protein (Negative) Urine Glucose (UA) (Negative) Urine Ketones (Negative) Urine Blood (Negative) Urine Nitrite (Negative) Urine Bilirubin (Negative) Urine Urobilinogen (<2.0) mg/dL Ur Leukocyte Esterase (Negative) Urine RBC (0-5) /hpf Urine WBC (0-5) /hpf Ur Squamous Epith Cells (0-4) /hpf Urine Bacteria (None) /hpf Hyaline Casts (0-2) /lpf Urine Mucus (None) /hpf - EKG Data EKG Comments: EKG taken at 16:46 atrial fibrillation with rapid ventricular response ventricular rate 129 QRS duration 89 QTc 387 Disposition Clinical Impression: Abdominal pain, Partial bowel obstruction, Atrial fibrillation with rapid ventricular response Disposition: ADMITTED IP TO THIS [facility] Condition: Good Decision Time: 21:52
[2021-09-28] MEDS ORDERED: MORPHINE SULFATE 4 MG/ML SYRINGE IVP STA (17:17)
[2021-09-28] MEDS ORDERED: SODIUM CHLORIDE 0.9% 1,000 ML IV STA ×2 (17:18→18:52)
[2021-09-28 17:33] LABS: HCT 51.6 % (34.0-46.0); HGB 16.2 gm/dL (11.4-16.0); MCH 32.8 pg (25.0-35.0); MCHC 31.4 g/dL (31.0-37.0); MCV 104.5 fL (80.0-100.0); Macrocytosis Slight; Mean Platelet Volume 7.1; Platelet Count 365 k/uL (150-450); RBC 4.94 m/uL (3.80-5.40); RDW 13.4 % (11.5-15.5); WBC 4.6 k/uL (3.8-10.6)
[2021-09-28 17:39] LABS: INR 1.2 (<1.2); Partial Thromboplastin Time 26.1 sec (22.0-30.0); Prothrombin Time 12.4 sec (9.0-12.0)
[2021-09-28 17:41] LABS: Albumin 3.9 g/dL (3.5-5.0); Appearance,Urine Cloudy (Clear); Bacteria,Urine Rare /hpf; Bilirubin,Urine 1+ (Negative); Blood,Urine Negative (Negative); Calcium 8.9 mg/dL (8.4-10.2); Color,Urine Orange; Glucose,Urine (UA) Negative (Negative); Hyaline Casts,Urine 7 /lpf (0-2); Ketones,Urine 1+ (Negative); Leukocyte Esterase,Urine Negative (Negative); Mucus,Urine Many /hpf; Nitrite,Urine Negative (Negative); PH, Urine 5.5 (5.0-8.0); Potassium 4.1 mmol/L (3.5-5.1); Protein,Urine 1+ (Negative); RBC,Urine 4 /hpf (0-5); Specific Gravity,Urine 1.034 (1.001-1.035); Squamous Epithelial Cell,Urine 6 /hpf (0-4); Total Protein 6.8 g/dL (6.3-8.2); WBC,Urine 4 /hpf (0-5)
[2021-09-28 18:00] LABS: Band Neutrophils % 11 %; Basophils # (M) 0.05 k/uL (0-0.2); Lymphocytes # (M) 1.33 k/uL (1.0-4.8); Monocytes # (M) 0.92 k/uL (0-1.0); Neutrophils % (M) 39 %; Nucleated Red Blood Cells 0 /100 WBC (0-0); Total Cells Counted 100
[2021-09-28 18:02] LABS: Toxic Vacuolation Present
--- NOTE | 2021-09-28 18:27 | CT ---
EXAMINATION TYPE: CT abdomen pelvis w con CT DLP: 672.9 mGycm, Automated exposure control for dose reduction was used. DATE OF EXAM: 09/28/2021 6:07 PM COMPARISON: None. CLINICAL INDICATION:Female, 66 years old with history of generalized abd pain with distention; abd pa in and distension x 10days TECHNIQUE: Standard CT of the abdomen and pelvis without IV or oral contrast. Lack of IV or oral co ntrast limits evaluation of solid and hollow organ viscera. Coronal and sagittal reformats were perfo rmed. FINDINGS: LOWER CHEST: Mild cardiomegaly. ABDOMEN LIVER: Diffusely hypoattenuating parenchyma. No evidence specific suspicious mass. GALLBLADDER AND BILE DUCTS: Unremarkable. PANCREAS: Unremarkable. SPLEEN: Unremarkable. ADRENAL GLANDS: Unremarkable. KIDNEYS AND URETERS: No evidence of hydronephrosis or renal calculus. The ureters are unremarkable. S cattered areas of cortical thinning likely from prior injury. PELVIS BLADDER: Unremarkable REPRODUCTIVE: Unremarkable. ABDOMEN & PELVIS STOMACH AND BOWEL: There is eccentric bowel wall thickening of the sigmoid colon resulting in dilatio n of the upstream bowel extending into the small bowel. Eccentric wall thickening measuring up to 1.5 to 2.0 cm. PERITONEUM: No evidence of pneumoperitoneum or free fluid. VASCULATURE: Moderate atherosclerotic calcifications are present throughout the abdominal aorta and i ts branches. MUSCULOSKELETAL: No acute osseous abnormalities. LYMPH NODES: No gross evidence for lymph nodes greater than 1.0 cm in short axis. Few scattered subce ntimeter lymph nodes are seen within the mesentery. SOFT TISSUE/ABDOMINAL WALL: Unremarkable IMPRESSION: 1. Suspected partial large bowel obstruction secondary to eccentric bowel wall thickening of the sig moid colon which is suspicious for primary malignancy. This results in in upstream dilation of the co armando and small bowel. No evidence of suspicious liver lesion or lymph nodes greater than 1 cm at this time. 2. Mild cardiomegaly. 3. Hepatic steatosis.
[2021-09-28] MEDS ORDERED: DILTIAZEM 125 MG in SODIUM CHLORIDE 0.9% 100 ML IV SCH (18:45)
[2021-09-28] MEDS ORDERED: DILTIAZEM 5 MG/ML 5 ML VIAL IVP STA (18:48)
[2021-09-28] MEDS ORDERED: HYDROmorphone 1 MG/ML 1 ML SYRINGE IVP STA (18:51)
[2021-09-28] MEDS ORDERED: SODIUM CHLORIDE 0.9% 1,000 ML IV ONE (19:59)
[2021-09-28] MEDS ORDERED: NALOXONE 0.4 MG/ML 1 ML VIAL IV PRN (20:56)
[2021-09-29] MEDS ORDERED: METOPROLOL TARTRATE 50 MG TAB PO SCH (09:00)
--- NOTE | 2021-09-29 09:06 | P.CRDCN ---
History of Present Illness Consult date: 09/29/21 Chief complaint: Abdominal discomfort History of present illness: The patient is a pleasant 66-year-old female patient with sees Dr. Chris spence with a past medical history significant for paroxysmal atrial fibrillation status post cardioversion recently and coronary artery disease with recent heart catheterization in August 2019 to revealing chronic total occlusion of the RCA with intermediate disease involving the left coronary system and no other preserved left ventricular systolic function on echo in 2020 with no significant valvular abnormalities resented to the emergency department complaining of abdominal discomfort associated with nausea for the last several days. The patient stated that the symptoms started about a week ago approximately. The discomfort in the abdomen was intermittent. She has no fever and no chills. She has no vomiting or diarrhea. She has no symptoms of any chest pain or chest discomfort nor feeling of heart racing or fluttering and no dizziness or lightheadedness. And no presyncope or syncope. We consulted to see the patient because of atrial fibrillation. The patient was in A. fib with heart rate around 100 bpm and she was started on Cardizem and drip. At home she was receiving metoprolol at 50 mg by mouth twice a day and she was also on oral anticoagulation. She is asymptomatic from a cardiac vascular standpoint overview. She underwent a workup for the abdominal discomfort including computed tomography scan of the abdomen and pelvis and that revealed partial small bowel obstruction with evidence of thickening is in the colon concerning for mass. That is in the process of getting workup at this point. At this point I'm going to DC the Cardizem IV and increase the dose of metoprolol to 50 mg by mouth 3 times a day. Continue oral anticoagulation unless the patient need to undergo any surgical procedure. Beside that going to obtain an echocardiogram was Doppler to assess for any changes since her echo which was about a year ago. Past Medical History Past Medical History: Atrial Fibrillation, COPD, Hyperlipidemia, Hypertension History of Any Multi-Drug Resistant Organisms: None Reported Past Surgical History: Tubal Ligation Additional Past Surgical History / Comment(s): Colonoscopy. Cardioversion Past Anesthesia/Blood Transfusion Reactions: No Reported Reaction Additional Past Anesthesia/Blood Transfusion Reaction / Comment(s): NO PREVIOUS ANESTHESIA Past Psychological History: No Psychological Hx Reported Additional Psychological History / Comment(s): Pt resides with her significant other. She is independent. Smoking Status: Current every day smoker Past Alcohol Use History: Occasional Additional Past Alcohol Use History / Comment(s): Smoked 45 years, quit 03/2021 but started again, now <1PPD. Pt used to drink 4 gin/tonics every day, now states 2 drinks daily Past Drug Use History: None Reported Additional Drug Use History / Comment(s): Rare use of marijuana in past - Past Family History Father Family Medical History: Myocardial Infarction (CT) Additional Family Medical History / Comment(s): Father of a CT at the age of 54yrs. Mother Family Medical History: Cancer, Diabetes Mellitus Additional Family Medical History / Comment(s): BREAST CA Sister(s) Family Medical History: Cancer Medications and Allergies Home Medications Medication Instructions Recorded Confirmed Type Apixaban [Eliquis] 5 mg PO BID 30 Days #60 tab 04/12/21 09/28/21 Rx Metoprolol Tartrate 50 mg PO BID 08/17/21 09/28/21 History Atorvastatin [Lipitor] 40 mg PO HS 09/28/21 09/28/21 History Digoxin [Lanoxin] 125 mcg PO DAILY 09/28/21 09/28/21 History Allergies Allergy/AdvReac Type Severity Reaction Status Date / Time No Known Allergies Allergy Verified 09/28/21 18:24 Physical Exam Vitals: Vital Signs Temp Pulse Pulse Resp BP BP Pulse Ox 09/29/21 04:00 98.2 F 91 18 110/60 93 L 09/29/21 02:00 92 18 09/28/21 23:30 97.6 F 92 18 110/61 94 L 09/28/21 22:34 97.6 F 104 H 18 108/61 92 L 09/28/21 22:30 92 18 09/28/21 22:10 98.3 F 85 18 116/54 96 09/28/21 21:30 92 18 117/75 96 09/28/21 20:49 92 18 117/73 97 09/28/21 19:56 111 H 18 92/58 94 L 09/28/21 17:50 105 H 20 120/68 96 09/28/21 13:03 97.8 F 80 22 120/64 97 Intake and Output 09/28/21 09/29/21 09/29/21 22:59 06:59 14:59 Intake Total 600 Balance 600 Intake: Intake, IV Titration 600 Amount Sodium Chloride 0.9% 1, 600 000 ml @ 75 mls/hr IV . [id number] STA Rx#:[id number] Other: Voiding Method Toilet Toilet # Voids 1 Weight 58.513 kg - Constitutional General appearance: no acute distress - Respiratory Respiratory: bilateral: CTA - Cardiovascular Rhythm: irregularly irregular Heart sounds: normal: S1, S2 Results 09/28/21 17:22 09/28/21 17:22 Cardiac Enzymes 09/28/21 09/28/21 Range/Units 17: 17:22 AST 28 (14-36) U/L Troponin I <0.012 (0.000-0.034) ng/mL Coagulation 09/28/21 Range/Units 17: PT 12.4 H (9.0-12.0) sec APTT 26.1 (22.0-30.0) sec CBC 09/28/21 Range/Units 17:22 WBC 4.6 (3.8-10.6) k/uL RBC 4.94 (3.80-5.40) m/uL Hgb 16.2 H (11.4-16.0) gm/dL Hct 51.6 H (34.0-46.0) % Plt Count 365 (150-450) k/uL Comprehensive Metabolic Panel 09/28/21 Range/Units 17:22 Sodium 138 (137-145) mmol/L Potassium 4.1 (3.5-5.1) mmol/L Chloride 99 (98-107) mmol/L Carbon Dioxide 29 (22-30) mmol/L BUN 23 H (7-17) mg/dL Creatinine 0.93 (0.52-1.04) mg/dL Glucose 106 H (74-99) mg/dL Calcium 8.9 (8.4-10.2) mg/dL AST 28 (14-36) U/L ALT 16 (4-34) U/L Alkaline Phosphatase 106 (38-126) U/L Total Protein 6.8 (6.3-8.2) g/dL Albumin 3.9 (3.5-5.0) g/dL Current Medications Generic Name Dose Route Start Last Admin Trade Name Freq PRN Reason Stop Dose Admin Atorvastatin Calcium 40 mg 09/29/21 21:00 Atorvastatin 40 Mg Tab PO HS PALLAVI Digoxin 125 mcg 09/29/21 09:00 Digoxin 125 Mcg Tab PO DAILY PALLAVI Hydromorphone HCl 1 mg 09/28/21 23:20 Hydromorphone 1 Mg/Ml 1 Ml Syringe IVP Q6HR PRN Pain Metoprolol Tartrate 50 mg 09/29/21 09:00 Metoprolol Tartrate 50 Mg Tab PO TID PALLAVI Naloxone HCl 0.2 mg 09/28/21 20:56 Naloxone 0.4 Mg/Ml 1 Ml Vial IV Q2M PRN Opioid Reversal Intake and Output 09/28/21 09/29/21 09/29/21 22:59 06:59 14:59 Intake Total 600 Balance 600 Intake: Intake, IV Titration 600 Amount Sodium Chloride 0.9% 1, 600 000 ml @ 75 mls/hr IV . [id number] STA Rx#:[id number] Other: Voiding Method Toilet Toilet # Voids 1 Weight 58.513 kg 09/28/21 17:22 09/28/21 17:22 Assessment and Plan Assessment: Assessment #1 paroxysmal atrial fibrillation #2 atrial fibrillation with overall controlled heart rate #3 coronary artery disease as described above #4 reserve left ventricle systolic function #5 small bowel obstruction with possible colon mass Plan #1 DC Cardizem IV #2 increase the dose of metoprolol #3 continue oral anticoagulation #4 follow-up with the patient #5 obtain an echocardiogram was Doppler
[2021-09-29] MEDS: METOPROLOL TARTRATE 50 MG TAB PO SCH ×3 (09:26→21:41)
[2021-09-29] MEDS: DIGOXIN 125 MCG TAB PO SCH (09:26)
[2021-09-29] MEDS: HYDROmorphone 1 MG/ML 1 ML SYRINGE IVP PRN ×3 (09:26→21:41)
--- NOTE | 2021-09-29 09:40 | P.GSCN ---
History of Present Illness Consult date: 09/29/21 Reason for Consult: Abdominal pain History of present illness: 58-year-old female comes in the hospital complaining of abdominal pain for the l ast 10 days or so. Describes bloating, nausea. No vomiting. Appetite progressively decreasing. She is passing flatus. Decreased bowel movements. Last colonoscopy she says was 3 years ago. In the ER had a CAT scan performed suggesting partial colonic obstruction at the sigmoid colon. White blood cell count is normal however left shift is present. She is afebrile. Patient says her pain is better now. With the use of the pain medication there are times when she has no pain. Pain comes in waves. Review of Systems The patient denies any acute changes in vision or hearing, no dysphagia or odynophagia, no chest pain or shortness of breath, no dysuria or hematuria, no headache, no runny nose, no rectal bleeding or melena, no unexplained weight loss Past Medical History Past Medical History: Atrial Fibrillation, COPD, Hyperlipidemia, Hypertension History of Any Multi-Drug Resistant Organisms: None Reported Past Surgical History: Tubal Ligation Additional Past Surgical History / Comment(s): Colonoscopy. Cardioversion Past Anesthesia/Blood Transfusion Reactions: No Reported Reaction Additional Past Anesthesia/Blood Transfusion Reaction / Comm: NO PREVIOUS ANESTHESIA Past Psychological History: No Psychological Hx Reported Additional Psychological History / Comment(s): Pt resides with her significant other. She is independent. Smoking Status: Current every day smoker Past Alcohol Use History: Occasional Additional Past Alcohol Use History / Comment(s): Smoked 45 years, quit 03/2021 but started again, now <1PPD. Pt used to drink 4 gin/tonics every day, now states 2 drinks daily Past Drug Use History: None Reported Additional Drug Use History / Comment(s): Rare use of marijuana in past - Past Family History Father Family Medical History: Myocardial Infarction ([place]) Additional Family Medical History / Comment(s): Father of a [place] at the age of 54yrs. Mother Family Medical History: Cancer, Diabetes Mellitus Additional Family Medical History / Comment(s): BREAST CA Sister(s) Family Medical History: Cancer Medications and Allergies Home Medications Medication Instructions Recorded Confirmed Type Apixaban [Eliquis] 5 mg PO BID 30 Days #60 tab 04/12/21 09/28/21 Rx Metoprolol Tartrate 50 mg PO BID 08/17/21 09/28/21 History Atorvastatin [Lipitor] 40 mg PO HS 09/28/21 09/28/21 History Digoxin [Lanoxin] 125 mcg PO DAILY 09/28/21 09/28/21 History Allergies Allergy/AdvReac Type Severity Reaction Status Date / Time No Known Allergies Allergy Verified 09/28/21 18:24 Surgical - Exam Vital Signs Temp Pulse Resp BP Pulse Ox 97.8 F 80 22 120/64 97 09/28/21 13:03 09/28/21 13:03 09/28/21 13:03 09/28/21 13:03 09/28/21 13:03 Physical exam: General: Well-developed, well-nourished HEENT: Normocephalic, sclerae nonicteric Abdomen: Distended, mild diffuse tenderness, no rebound or guarding Extremities: No edema Neuro: Alert and oriented Results - Labs 09/28/21 17:22 09/28/21 17:22 Abnormal Lab Results - Last 24 Hours (Table) 09/28/21 09/28/21 09/28/21 Range/Units 17:22 17:22 17:22 Hgb 16.2 H (11.4-16.0) gm/dL Hct 51.6 H (34.0-46.0) % MCV 104.5 H (80.0-100.0) fL PT 12.4 H (9.0-12.0) sec INR 1.2 H (<1.2) BUN (7-17) mg/dL Glucose (74-99) mg/dL Urine Appearance Cloudy H (Clear) Urine Protein 1+ H (Negative) Urine Ketones 1+ H (Negative) Urine Bilirubin 1+ H (Negative) Ur Squamous Epith Cells 6 H (0-4) /hpf Urine Bacteria Rare H (None) /hpf Hyaline Casts 7 H (0-2) /lpf Urine Mucus Many H (None) /hpf 09/28/21 Range/Units 17:22 Hgb (11.4-16.0) gm/dL Hct (34.0-46.0) % MCV (80.0-100.0) fL PT (9.0-12.0) sec INR (<1.2) BUN 23 H (7-17) mg/dL Glucose 106 H (74-99) mg/dL Urine Appearance (Clear) Urine Protein (Negative) Urine Ketones (Negative) Urine Bilirubin (Negative) Ur Squamous Epith Cells (0-4) /hpf Urine Bacteria (None) /hpf Hyaline Casts (0-2) /lpf Urine Mucus (None) /hpf Diabetes panel 09/28/21 Range/Units 17:22 Sodium 138 (137-145) mmol/L Potassium 4.1 (3.5-5.1) mmol/L Chloride 99 (98-107) mmol/L Carbon Dioxide 29 (22-30) mmol/L BUN 23 H (7-17) mg/dL Creatinine 0.93 (0.52-1.04) mg/dL Glucose 106 H (74-99) mg/dL Calcium 8.9 (8.4-10.2) mg/dL AST 28 (14-36) U/L ALT 16 (4-34) U/L Alkaline Phosphatase 106 (38-126) U/L Total Protein 6.8 (6.3-8.2) g/dL Albumin 3.9 (3.5-5.0) g/dL Calcium panel 09/28/21 Range/Units 17:22 Calcium 8.9 (8.4-10.2) mg/dL Albumin 3.9 (3.5-5.0) g/dL Pituitary panel 09/28/21 Range/Units 17:22 Sodium 138 (137-145) mmol/L Potassium 4.1 (3.5-5.1) mmol/L Chloride 99 (98-107) mmol/L Carbon Dioxide 29 (22-30) mmol/L BUN 23 H (7-17) mg/dL Creatinine 0.93 (0.52-1.04) mg/dL Glucose 106 H (74-99) mg/dL Calcium 8.9 (8.4-10.2) mg/dL Adrenal panel 09/28/21 Range/Units 17:22 Sodium 138 (137-145) mmol/L Potassium 4.1 (3.5-5.1) mmol/L Chloride 99 (98-107) mmol/L Carbon Dioxide 29 (22-30) mmol/L BUN 23 H (7-17) mg/dL Creatinine 0.93 (0.52-1.04) mg/dL Glucose 106 H (74-99) mg/dL Calcium 8.9 (8.4-10.2) mg/dL Total Bilirubin 1.0 (0.2-1.3) mg/dL AST 28 (14-36) U/L ALT 16 (4-34) U/L Alkaline Phosphatase 106 (38-126) U/L Total Protein 6.8 (6.3-8.2) g/dL Albumin 3.9 (3.5-5.0) g/dL Assessment and Plan (1) Partial bowel obstruction Narrative/Plan: 58-year-old female with suspected partial colonic obstruction. Begin IV antibiotics. Check labs including CEA level. Dr. Carranza was notified of the consult earlier today and is scheduling her for partial colectomy on Friday tentatively at this time. We'll reevaluate tomorrow. Keep nothing by mouth for now. Current Visit: Yes Status: Acute Code(s): K56.600 - PARTIAL INTESTINAL OBSTRUCTION, UNSPECIFIED TO CAUSE SNOMED Code(s): 43675473554725312
[2021-09-29] MEDS ORDERED: IPRATROPIUM-ALBUTEROL 3 ML NEB INHALATION PRN (09:47)
[2021-09-29] MEDS: SODIUM CHLORIDE 0.9% 1,000 ML IV SCH ×2 (11:55→22:42)
--- NOTE | 2021-09-29 13:30 | XR ---
EXAMINATION TYPE: XR chest 2V DATE OF EXAM: 09/29/2021 COMPARISON: 04/13/2021 HISTORY: Shortness of breath TECHNIQUE: Frontal and lateral views of the chest are obtained. FINDINGS: There is mild cardiomegaly, pulmonary vascular congestion and interstitial edema. There is a small right pleural effusion. Findings are most consistent with moderate CHF. There is no pneumothorax. The osseous structures are osteopenic but intact IMPRESSION: Findings most consistent with moderate CHF.
[2021-09-29] MEDS: metroNIDAZOLE-NS PMX 500 MG in SALINE 1 100ML.BAG IVPB SCH ×2 (14:13→20:16)
--- NOTE | 2021-09-29 15:16 | CA ---
Transthoracic Echo Report Name: Aide Menon Age: 66 Gender: F : 1955 Exam Date: 09/29/2021 11:00 Exam Location: [facility] Ht (in): 64 Wt (lb): 129 Ordering Physician: Saul Clark MD ([id number]) Attending/Referring Phys: Screen Cleaner Elena Chan RDCS Procedure CPT: Indications: a. fib Cardiac Hx: Technical Quality: Fair Contrast 1: Total Dose (mL): Contrast 2: Total Dose (mL): MEASUREMENTS (Male / Female) Normal Values 2D ECHO LV Diastolic Diameter PLAX 4.1 cm 4.2 - 5.9 / 3.9 - 5.3 cm LV Systolic Diameter PLAX 2.4 cm IVS Diastolic Thickness 1.2 cm 0.6 - 1.0 / 0.6 - 0.9 cm LVPW Diastolic Thickness 1.1 cm 0.6 - 1.0 / 0.6 - 0.9 cm LV Relative Wall Thickness 0.6 RV Internal Dim ED PLAX 2.9 cm LVOT Diameter 2.2 cm LA Systolic Diameter LX 3.5 cm 3.0 - 4.0 / 2.7 - 3.8 cm LA Volume 65.1 cm??? 18 - 58 / 22 - 52 cm??? M-MODE Aortic Root Diameter MM 2.9 cm MV E Point Septal Separation 1.0 cm AV Cusp Separation MM 1.5 cm DOPPLER AV Peak Velocity 157.6 cm/s AV Peak Gradient 9.9 mmHg AI Peak Velocity 362.5 cm/s AI Peak Gradient 52.6 mmHg AI Pressure Half Time 560.4 ms MV Peak Velocity 213.9 cm/s MV Peak Gradient 18.3 mmHg MV Mean Velocity 103.9 cm/s MV Mean Gradient 5.7 mmHg MV Velocity Time Integral 50.8 cm MV Area PHT 2.5 cm??? MV Deceleration Time 323.7 ms TR Peak Velocity 268.9 cm/s TR Peak Gradient 28.9 mmHg Right Ventricular Systolic Press 33.2 mmHg FINDINGS Left Ventricle Left ventricular ejection fraction is estimated at 45-50 %. Left ventricular cavity size normal. Mild concentric left ventricular hypertrophy. Right Ventricle Normal right ventricular size and function. Mild pulmonary hypertension. Right Atrium Normal right atrial size. Left Atrium Moderately increased left atrial volume. Mildly increased left atrial area. No evidence for an atrial septal defect. Mitral Valve Mild thickening/calcification of the anterior mitral valve leaflet. Mild thickening/calcification of the posterior mitral valve leaflet. Mild mitral regurgitation. Mild mitral stenosis. Aortic Valve Diffuse thickening (sclerosis) of the aortic valve cusps without reduced excursion. Mild aortic regurgitation. Tricuspid Valve Mild tricuspid regurgitation. Pulmonic Valve Mild pulmonic regurgitation. Pericardium No pericardial effusion. Aorta Normal size aortic root and proximal ascending aorta. CONCLUSIONS Low normal LV funcion. Mild LVH Aortic sclerosis with mild AI MAC with mild MR Mild pulmonary HTN Previewed by: Dr. Saul Clark MD (Electronically Signed) Final Date: 29 Sep 2021 15:15
[2021-09-29] MEDS: FUROSEMIDE 10 MG/ML 4 ML VIAL IV SCH (15:56)
[2021-09-29] MEDS: PIPERACILLIN-TAZOBACTAM 3.375 GM in SODIUM CHLORIDE 0.9% 100 ML IVPB SCH ×2 (15:57→21:43)
[2021-09-29] MEDS ORDERED: PIPERACILLIN-TAZOBACTAM 3.375 GM in SODIUM CHLORIDE 0.9% 100 ML IVPB SCH (16:00)
[2021-09-29] MEDS ORDERED: metroNIDAZOLE-NS PMX 500 MG in SALINE 1 100ML.BAG IVPB SCH (16:00)
--- NOTE | 2021-09-29 19:05 | P.HPIM ---
History of Present Illness H&P Date: 09/29/21 Chief Complaint: Abdominal pain 66-year-old female presents to the emergency department with a chief complaint of abdominal pain. Patient states her symptoms started 10 days ago. Describes it as generalized abdominal pain with no radiation. No back pain. She states she had intermittent nausea for the first couple days that has since resolved. No fever, chills, vomiting, or diarrhea. Normal bowel movements with last bowel movement yesterday, nonbloody. Patient has been tolerating oral intake okay however states her appetite has decreased. No burning with urination, increased urinary frequency/urgency, or blood in the urine. No chest pain or shortness of breath. Patient does have history of atrial fibrillation on Eliquis. No upper respiratory symptoms or recent sick contacts. No previous abdominal surgeries. Patient does admit to tobacco use with [id number] history. She denies family history of aneurysm. CT is significant for a suspected partial large bowel obstruction secondary to eccentric bowel wall thickening of the sigmoid colon which is suspicious for primary malignancy. EKG revealed atrial fibrillation with rapid ventricular response; patient was started on IV Cardizem Review of Systems REVIEW OF SYSTEMS: CONSTITUTIONAL: No fever, no malaise, no fatigue. HEENT: No recent visual problems or hearing problems. Denied any sore throat. CARDIOVASCULAR: No chest pain, orthopnea, PND, no palpitations, no syncope. PULMONARY: No shortness of breath, no cough, no hemoptysis. GASTROINTESTINAL: No diarrhea, no nausea, no vomiting, no abdominal pain. NEUROLOGICAL: No headaches, no weakness, no numbness. HEMATOLOGICAL: Denies any bleeding or petechiae. GENITOURINARY: Denies any burning micturition, frequency, or urgency. MUSCULOSKELETAL/RHEUMATOLOGICAL: Denies any joint pain, swelling, or any muscle pain. ENDOCRINE: Denies any polyuria or polydipsia. The rest of the 14-point review of systems is negative. Past Medical History Past Medical History: Atrial Fibrillation, COPD, Hyperlipidemia, Hypertension History of Any Multi-Drug Resistant Organisms: None Reported Past Surgical History: Tubal Ligation Additional Past Surgical History / Comment(s): Colonoscopy. Cardioversion Past Anesthesia/Blood Transfusion Reactions: No Reported Reaction Additional Past Anesthesia/Blood Transfusion Reaction / Comment(s): NO PREVIOUS ANESTHESIA Past Psychological History: No Psychological Hx Reported Additional Psychological History / Comment(s): Pt resides with her significant other. She is independent. Smoking Status: Current every day smoker Past Alcohol Use History: Occasional Additional Past Alcohol Use History / Comment(s): Smoked 45 years, quit 03/2021 but started again, now <1PPD. Pt used to drink 4 gin/tonics every day, now states 2 drinks daily Past Drug Use History: None Reported Additional Drug Use History / Comment(s): Rare use of marijuana in past - Past Family History Father Family Medical History: Myocardial Infarction ([place]) Additional Family Medical History / Comment(s): Father of a [place] at the age of 54yrs. Mother Family Medical History: Cancer, Diabetes Mellitus Additional Family Medical History / Comment(s): BREAST CA Sister(s) Family Medical History: Cancer Medications and Allergies Home Medications Medication Instructions Recorded Confirmed Type Apixaban [Eliquis] 5 mg PO BID 30 Days #60 tab 04/12/21 09/28/21 Rx Metoprolol Tartrate 50 mg PO BID 08/17/21 09/28/21 History Atorvastatin [Lipitor] 40 mg PO HS 09/28/21 09/28/21 History Digoxin [Lanoxin] 125 mcg PO DAILY 09/28/21 09/28/21 History Allergies Allergy/AdvReac Type Severity Reaction Status Date / Time No Known Allergies Allergy Verified 09/28/21 18:24 Physical Exam Vitals: Vital Signs Temp Pulse Pulse Resp BP BP Pulse Ox 09/29/21 04:00 98.2 F 91 18 110/60 93 L 09/29/21 02:00 92 18 09/28/21 23:30 97.6 F 92 18 110/61 94 L 09/28/21 22:34 97.6 F 104 H 18 108/61 92 L 09/28/21 22:30 92 18 09/28/21 22:10 98.3 F 85 18 116/54 96 09/28/21 21:30 92 18 117/75 96 09/28/21 20:49 92 18 117/73 97 09/28/21 19:56 111 H 18 92/58 94 L 09/28/21 17:50 105 H 20 120/68 96 09/28/21 13:03 97.8 F 80 22 120/64 97 Intake and Output 05/06/22 05/07/22 05/07/22 22:59 06:59 14:59 Intake Total 600 Balance 600 Intake: Intake, IV Titration 600 Amount Sodium Chloride 0.9% 1, 600 000 ml @ 75 mls/hr IV . [id number] STA Rx#:[id number] Other: Voiding Method Toilet Toilet # Voids 1 Weight 58.513 kg PHYSICAL EXAMINATION: GENERAL: The patient is alert and oriented x3, not in any acute distress. Well developed, well nourished. HEENT: Pupils are round and equally reacting to light. EOMI. No scleral icterus. No conjunctival pallor. Normocephalic, atraumatic. No pharyngeal erythema. No thyromegaly. CARDIOVASCULAR: S1 and S2 present. No murmurs, rubs, or gallops. PULMONARY: Chest is clear to auscultation, no wheezing or crackles. ABDOMEN: Soft, nontender, nondistended, normoactive bowel sounds. No palpable organomegaly. MUSCULOSKELETAL: No joint swelling or deformity. EXTREMITIES: No cyanosis, clubbing, or pedal edema. NEUROLOGICAL: Gross neurological examination did not reveal any focal deficits. SKIN: No rashes. Results CBC & Chem 7: 09/28/21 17:22 09/28/21 17:22 Labs: Abnormal Lab Results - Last 24 Hours (Table) 09/28/21 09/28/21 09/28/21 Range/Units 17:22 17:22 17:22 Hgb 16.2 H (11.4-16.0) gm/dL Hct 51.6 H (34.0-46.0) % MCV 104.5 H (80.0-100.0) fL PT 12.4 H (9.0-12.0) sec INR 1.2 H (<1.2) BUN (7-17) mg/dL Glucose (74-99) mg/dL Urine Appearance Cloudy H (Clear) Urine Protein 1+ H (Negative) Urine Ketones 1+ H (Negative) Urine Bilirubin 1+ H (Negative) Ur Squamous Epith Cells 6 H (0-4) /hpf Urine Bacteria Rare H (None) /hpf Hyaline Casts 7 H (0-2) /lpf Urine Mucus Many H (None) /hpf 09/28/21 Range/Units 17:22 Hgb (11.4-16.0) gm/dL Hct (34.0-46.0) % MCV (80.0-100.0) fL PT (9.0-12.0) sec INR (<1.2) BUN 23 H (7-17) mg/dL Glucose 106 H (74-99) mg/dL Urine Appearance (Clear) Urine Protein (Negative) Urine Ketones (Negative) Urine Bilirubin (Negative) Ur Squamous Epith Cells (0-4) /hpf Urine Bacteria (None) /hpf Hyaline Casts (0-2) /lpf Urine Mucus (None) /hpf Thrombosis Risk Factor Assmnt - Choose All That Apply Any of the Below Risk Factors Present?: Yes Each Factor Represents 1 point: Abnormal pulmonary function (COPD) Other Risk Factors: Yes Each Risk Factor Represents 2 Points: Age 61-74 years Other congenital or acquired thrombophilia - If yes, enter type in comment: No Thrombosis Risk Factor Assessment Total Risk Factor Score: 3 Thrombosis Risk Factor Assessment Level: Moderate Risk Assessment and Plan Assessment: 1. Atrial fibrillation with RVR; patient has been evaluated by cardiology; IV Cardizem was discontinued and patient is recommended to be placed on increased dose of metoprolol and continue with anticoagulation therapy; 2-D echo is ordered 2. Abdominal pain/partial bowel obstruction; CT of the abdomen revealed suspected partial large bowel obstruction secondary to eccentric bowel wall thickening of sigmoid colon which is suspicious for primary malignancy 3. Mild renal insufficiency/dehydration; IV fluid hydration with normal saline at rate of 75 mL; we will monitor strict MEGHAN's, renal function and electrolytes; avoid nephrotoxins and hypotension 4. Hypertension; metoprolol 50 mg by mouth twice a day 5. Hyperlipidemia; Lipitor 40 mg by mouth daily at bedtime 6. COPD; not in exacerbation DVT prophylaxis; SCDs/systemic anticoagulation CODE STATUS; full code
[2021-09-29] MEDS: ATORVASTATIN 40 MG TAB PO SCH (20:14)
--- NOTE | 2021-09-30 00:25 | P.CONS ---
History of Present Illness - Reason for Consult Consult date: 09/29/21 Sigmoid colon - History of Present Illness The patient is a 66-year-old white female with multiple medical problems. She came into the hospital with about a 10 day history of abdominal discomfort, bloating and nausea, which was progressive in nature. The patient was still able to pass gas and have a BM initially, but has not been able to do so for the last 3 days. She noted decrease in appetite during this period. She had a CT of the abdomen and pelvis in the hospital, which showed no jesus obstruction. Wall thickening was noted in the sigmoid colon, with some distention of the bowel proximal to that. There is no evidence of obvious metastatic disease. Chest x-ray showed evidence of possible CHF. Patient was therefore admitted for further management, and consult placed. There is no prior history of malignancy. Last colonoscopy was about 3 years ago according to her. No family h/o colorectal or uterine ca Review of Systems Constitutional: Reports fatigue, Reports weight loss Eyes: denies blurred vision, denies pain Ears: deny: decreased hearing, ear discharge, earache, tinnitus Ears, nose, mouth and throat: Denies headache, Denies sore throat Cardiovascular: Denies chest pain, Denies shortness of breath Respiratory: Denies cough Gastrointestinal: Reports as per HPI, Reports abdominal pain, Reports con stipation, Reports loss of appetite, Reports nausea Genitourinary: Denies dysuria, Denies hematuria Menstruation: Reports postmenopausal Musculoskeletal: Reports muscle weakness Integumentary: Denies pruritus, Denies rash Neurological: Reports weakness Psychiatric: Denies anxiety, Denies depression Endocrine: Reports fatigue Hematologic/Lymphatic: Reports as per HPI Past Medical History Past Medical History: Atrial Fibrillation, COPD, Hyperlipidemia, Hypertension History of Any Multi-Drug Resistant Organisms: None Reported Past Surgical History: Tubal Ligation Additional Past Surgical History / Comment(s): Colonoscopy. Cardioversion Past Anesthesia/Blood Transfusion Reactions: No Reported Reaction Additional Past Anesthesia/Blood Transfusion Reaction / Comm: NO PREVIOUS ANESTHESIA Past Psychological History: No Psychological Hx Reported Additional Psychological History / Comment(s): Pt resides with her significant other. She is independent. Smoking Status: Current every day smoker Past Alcohol Use History: Occasional Additional Past Alcohol Use History / Comment(s): Smoked 45 years, quit 03/2021 but started again, now <1PPD. Pt used to drink 4 gin/tonics every day, now states 2 drinks daily Past Drug Use History: None Reported Additional Drug Use History / Comment(s): Rare use of marijuana in past - Past Family History Father Family Medical History: Myocardial Infarction ([place]) Additional Family Medical History / Comment(s): Father of a [place] at the age of 54yrs. Mother Family Medical History: Cancer, Diabetes Mellitus Additional Family Medical History / Comment(s): BREAST [place] Sister(s) Family Medical History: Cancer Medications and Allergies Home Medications Medication Instructions Recorded Confirmed Type Apixaban [Eliquis] 5 mg PO BID 30 Days #60 tab 04/12/21 09/28/21 Rx Metoprolol Tartrate 50 mg PO BID 08/17/21 09/28/21 History Atorvastatin [Lipitor] 40 mg PO HS 09/28/21 09/28/21 History Digoxin [Lanoxin] 125 mcg PO DAILY 09/28/21 09/28/21 History Allergies Allergy/AdvReac Type Severity Reaction Status Date / Time No Known Allergies Allergy Verified 09/28/21 18:24 Physical Exam Vitals: Vital Signs Temp Pulse Pulse Resp BP BP Pulse Ox 09/29/21 16:00 98.0 F 93 18 138/71 95 09/29/21 14:00 104 H 18 09/29/21 12:00 98.0 F 18 115/55 87 L 09/29/21 11:00 91 18 09/29/21 10:52 90 18 09/29/21 08:00 98.2 F 104 H 20 145/69 92 L 09/29/21 04:00 98.2 F 91 18 110/60 93 L 09/29/21 02:00 92 18 09/28/21 23:30 97.6 F 92 18 110/61 94 L 09/28/21 22:34 97.6 F 104 H 18 108/61 92 L 09/28/21 22:30 92 18 09/28/21 22:10 98.3 F 85 18 116/54 96 09/28/21 21:30 92 18 117/75 96 09/28/21 20:49 92 18 117/73 97 09/28/21 19:56 111 H 18 92/58 94 L 09/28/21 17:50 105 H 20 120/68 96 Intake and Output 09/29/21 09/29/21 09/29/21 06:59 14:59 22:59 Intake Total 600 Balance 600 Intake: Intake, IV Titration 600 Amount Sodium Chloride 0.9% 1, 600 000 ml @ 75 mls/hr IV . [id number] STA Rx#:[id number] Other: Voiding Method Toilet Toilet # Voids 1 2 - Constitutional General appearance: no acute distress - EENT Eyes: EOMI, PERRLA ENT: hearing grossly normal, normal oropharynx - Neck Neck: no lymphadenopathy Thyroid: bilateral: normal size - Respiratory Respiratory: bilateral: CTA - Cardiovascular Rhythm: regular Heart sounds: normal: S1, S2 - Gastrointestinal General gastrointestinal: absent bowel sounds, distended Localized gastrointestinal: tender: LLQ - Integumentary Integumentary: normal - Neurologic Neurologic: CNII-XII intact - Musculoskeletal Musculoskeletal: strength equal bilaterally - Psychiatric Psychiatric: A&O x's 3, appropriate affect Results CBC & Chem 7: 09/28/21 17:22 09/28/21 17:22 Labs: Abnormal Lab Results - Last 24 Hours (Table) 09/28/21 09/28/21 09/28/21 Range/Units 17:22 17:22 17:22 Hgb 16.2 H (11.4-16.0) gm/dL Hct 51.6 H (34.0-46.0) % MCV 104.5 H (80.0-100.0) fL PT 12.4 H (9.0-12.0) sec INR 1.2 H (<1.2) BUN (7-17) mg/dL Glucose (74-99) mg/dL Urine Appearance Cloudy H (Clear) Urine Protein 1+ H (Negative) Urine Ketones 1+ H (Negative) Urine Bilirubin 1+ H (Negative) Ur Squamous Epith Cells 6 H (0-4) /hpf Urine Bacteria Rare H (None) /hpf Hyaline Casts 7 H (0-2) /lpf Urine Mucus Many H (None) /hpf 09/28/21 Range/Units 17:22 Hgb (11.4-16.0) gm/dL Hct (34.0-46.0) % MCV (80.0-100.0) fL PT (9.0-12.0) sec INR (<1.2) BUN 23 H (7-17) mg/dL Glucose 106 H (74-99) mg/dL Urine Appearance (Clear) Urine Protein (Negative) Urine Ketones (Negative) Urine Bilirubin (Negative) Ur Squamous Epith Cells (0-4) /hpf Urine Bacteria (None) /hpf Hyaline Casts (0-2) /lpf Urine Mucus (None) /hpf Comments: ECHO report reviewed Chest x-ray: report reviewed CT scan - abdomen: report reviewed CT scan - pelvis: report reviewed Assessment and Plan (1) Colonic mass Narrative/Plan: The pt appears to have a sigmoid abnormality on CT causing symptoms of progressive obstruction. A tumor mass is the primary differential. Surgery is pl anned - The pt was advised that with impending obstruction symptoms, surgery would be indicated anyway, even if the pt had evidence of exisiting metastatic disease. However the CT shows no evidence of mets. Thus the surgery in this case can be a definitive procedure , given that malignancy is a primary differential - Await pathology post surgery Current Visit: Yes Status: Acute Code(s): K63.89 - OTHER SPECIFIED DISEASES OF INTESTINE SNOMED Code(s): 253873746 (2) Partial bowel obstruction Narrative/Plan: Plan for surgery as noted above Current Visit: Yes Status: Acute Code(s): K56.600 - PARTIAL INTESTINAL OBSTRUCTION, UNSPECIFIED TO CAUSE SNOMED Code(s): [id number]
[2021-09-30] MEDS: HYDROmorphone 1 MG/ML 1 ML SYRINGE IVP PRN ×3 (03:16→15:14)
[2021-09-30] MEDS: metroNIDAZOLE-NS PMX 500 MG in SALINE 1 100ML.BAG IVPB SCH ×3 (04:53→20:54)
[2021-09-30] MEDS: PIPERACILLIN-TAZOBACTAM 3.375 GM in SODIUM CHLORIDE 0.9% 100 ML IVPB SCH ×3 (06:07→20:55)
[2021-09-30] MEDS ORDERED: HYDROmorphone 0.5 MG/0.5 ML SYRINGE IVP STA (06:15)
[2021-09-30 07:46] LABS: Potassium 3.9 mmol/L (3.5-5.1)
[2021-09-30 07:59] LABS: Basophils % (A) 0 %; Eosinophils # (A) 0.1 k/uL (0-0.7); Eosinophils % (A) 1 %; HCT 42.6 % (34.0-46.0); Hypochromasia Slight; Lymphocytes # (A) 1.1 k/uL (1.0-4.8); Lymphocytes % (A) 21 %; MCH 32.6 pg (25.0-35.0); MCHC 30.7 g/dL (31.0-37.0); MCV 106.1 fL (80.0-100.0); Macrocytosis Moderate; Mean Platelet Volume 6.9; Monocytes # (A) 0.4 k/uL (0-1.0); Monocytes % (A) 8 %; Neutrophils # (A) 3.4 k/uL (1.3-7.7); Neutrophils % (A) 67 %; Platelet Count 266 k/uL (150-450); RBC 4.02 m/uL (3.80-5.40); RDW 13.3 % (11.5-15.5)
[2021-09-30 08:08] LABS: HGB 13.1 gm/dL (11.4-16.0)
[2021-09-30 08:56] LABS: Glucose,Whole Blood 53 mg/dL (75-99)
[2021-09-30] MEDS: METOPROLOL TARTRATE 50 MG TAB PO SCH ×3 (08:57→20:54)
[2021-09-30] MEDS: FUROSEMIDE 10 MG/ML 4 ML VIAL IV SCH (08:57)
[2021-09-30] MEDS: DIGOXIN 125 MCG TAB PO SCH (08:57)
[2021-09-30] MEDS ORDERED: DEXTROSE 50% SYRINGE 50 ML IVP ONE (09:09)
[2021-09-30] MEDS ORDERED: DEXTROSE 50% SYRINGE 50 ML IVP STA (09:14)
--- NOTE | 2021-09-30 09:49 | P.PN ---
Subjective Progress Note Date: 09/30/21 Principal diagnosis: Persistent atrial fibrillation This is a 66-year-old female patient with a past medical history significant for persistent atrial fibrillation as well as coronary artery presented to the hospital complaining of nausea and vomiting and abdominal discomfort and she was diagnosed with a mass in the colon. Subsequently she was seen by the surgical team and the plan is to pursue with partial colectomy in the next 24 hours. We consulted to see the patient because she was in atrial fibrillation. The patient underwent cardioversion few weeks ago. The patient was seen this morning. She remains in atrial fibrillation with controlled heart rate. She reports no pain in the chest no shortness of breath nor feeling of heart racing or fluttering. Hemodynamically she is stable. She was started on Lasix IV for mild fluid overload but on going to stop that today and put her on Lasix by mouth 20 mg daily. Oral anticoagulation is on hold at this point in the light of the surgery in the next 24-48 hours. She underwent an echo which revealed normal LV function was no significant valvular abnormalities Objective - Vital Signs Vital signs: Vital Signs Temp 98.2 F 09/30/21 03:21 Pulse 72 09/30/21 03:21 Resp 18 09/30/21 03:21 BP 117/75 09/30/21 03:21 Pulse Ox 97 09/30/21 03:21 Intake & Output 09/29/21 09/30/21 09/30/21 18:59 06:59 18:59 Intake Total 200 Output Total 1500 Balance -1300 Intake: Intake, IV Titration 200 Amount Piperacillin-Tazobactam 3 100 .375 gm In Sodium Chloride 0.9% 100 ml @ 25 mls/hr IVPB Q8H [facility] Rx#: [id number] metroNIDAZOLE-NS PMX 500 100 mg In Saline 1 100ml.bag @ 100 mls/hr IVPB Q8H [facility] Rx#:[id number] Output: Urine 1500 Other: Voiding Method Toilet External Catheter # Voids 2 - Constitutional General appearance: Present: no acute distress - Respiratory Respiratory: bilateral: diminished - Cardiovascular Rhythm: irregularly irregular Heart sounds: normal: S1, S2 - Labs CBC & Chem 7: 09/30/21 07:17 09/30/21 07:17 Labs: Abnormal Lab Results - Last 24 Hours (Table) 09/30/21 09/30/21 09/30/21 Range/Units 07:17 07:17 08:55 MCV 106.1 H (80.0-100.0) fL MCHC 30.7 L (31.0-37.0) g/dL Glucose 61 L (74-99) mg/dL POC Glucose (mg/dL) 53 L (75-99) mg/dL Calcium 8.0 L (8.4-10.2) mg/dL Assessment and Plan Assessment: Assessment #1 persistent atrial fibrillation with controlled heart rate #2 coronary artery disease #3 preserved LV function #4 mass in the colon suspicious for Plan #1 continue the current medical regimen #2 switch from Lasix IV to Lasix by mouth #3 continue holding anticoagulation because of the possible surgical procedure #4 the patient can proceed with the abdominal surgery
--- NOTE | 2021-09-30 10:28 | P.PN ---
Subjective Progress Note Date: 09/30/21 Principal diagnosis: Partial colonic obstruction Patient says she feels about the same today as she did yesterday. Pain comes in waves. Bloating still present. No flatus or bowel movement. No vomiting. White blood cell count was normal. Objective - Vital Signs Vital signs: Vital Signs Temp 98.1 F 09/30/21 08:00 Pulse 116 H 09/30/21 08:00 Resp 18 09/30/21 08:00 BP 115/66 09/30/21 08:00 Pulse Ox 97 09/30/21 08:00 Intake & Output 09/29/21 09/30/21 09/30/21 18:59 06:59 18:59 Intake Total 200 Output Total 1500 Balance -1300 Intake: Intake, IV Titration 200 Amount Piperacillin-Tazobactam 3 100 .375 gm In Sodium Chloride 0.9% 100 ml @ 25 mls/hr IVPB Q8H [facility] Rx#: [id number] metroNIDAZOLE-NS PMX 500 100 mg In Saline 1 100ml.bag @ 100 mls/hr IVPB Q8H [facility] Rx#:[id number] Output: Urine 1500 Other: Voiding Method Toilet External Catheter External Catheter # Voids 2 - Exam Abdomen: Soft, mild distention, mild diffuse tenderness, no rebound or guarding - Labs CBC & Chem 7: 09/30/21 07:17 09/30/21 07:17 Labs: Abnormal Lab Results - Last 24 Hours (Table) 09/30/21 09/30/21 09/30/21 Range/Units 07:17 07:17 08:55 MCV 106.1 H (80.0-100.0) fL MCHC 30.7 L (31.0-37.0) g/dL Glucose 61 L (74-99) mg/dL POC Glucose (mg/dL) 53 L (75-99) mg/dL Calcium 8.0 L (8.4-10.2) mg/dL Assessment and Plan (1) Partial bowel obstruction Narrative/Plan: 66-year-old female with suspected partial colonic obstruction. Repeat abdominal x-rays tomorrow. Tentatively we will schedule for surgical intervention tomorrow by Dr. Carranza. Keep nothing by mouth for now. Current Visit: Yes Status: Acute Code(s): K56.600 - PARTIAL INTESTINAL OBSTRUCTION, UNSPECIFIED TO CAUSE SNOMED Code(s): 25438505066085716
[2021-09-30] MEDS: DEXTROSE 5%-0.45% NACL 1,000 ML IV SCH (10:44)
--- NOTE | 2021-09-30 16:52 | P.PN ---
Subjective Progress Note Date: 09/30/21 Principal diagnosis: Atrial fibrillation with RVR Abdominal pain/partial bowel obstruction Mild renal insufficiency/dehydration 66-year-old female presents to the emergency department with a chief complaint of abdominal pain. Patient states her symptoms started 10 days ago. Describes it as generalized abdominal pain with no radiation. No back pain. She states she had intermittent nausea for the first couple days that has since resolved. No fever, chills, vomiting, or diarrhea. Normal bowel movements with last bowel movement yesterday, nonbloody. Patient has been tolerating oral intake okay however states her appetite has decreased. No burning with urination, increased urinary frequency/urgency, or blood in the urine. No chest pain or shortness of breath. Patient does have history of atrial fibrillation on Eliquis. No upper respiratory symptoms or recent sick contacts. No previous abdominal surgeries. Patient does admit to tobacco use with [id number] history. She denies family history of aneurysm. CT is significant for a suspected partial large bowel obstruction secondary to eccentric bowel wall thickening of the sigmoid colon which is suspicious for primary malignancy. EKG revealed atrial fibrillation with rapid ventricular response; patient was started on IV Cardizem Patient continues to have abdominal distention and pain; no bowel movements; general surgery on board and planning to repeat abdominal x-ray with tentative plan for partial colectomy tomorrow Patient remains in atrial fibrillation with controlled ventricular response at this time; no anticoagulation therapy for anticipated surgery in next 24-48 hours; echocardiogram reveals normal LV function and no significant valvular a bnormalities; cardiology on board and recommending to continue with Lasix 20 mg daily for mild fluid overload; Objective - Vital Signs Vital signs: Vital Signs Temp 98.2 F 09/30/21 11:47 Pulse 109 H 09/30/21 11:47 Resp 18 09/30/21 11:47 BP 106/66 09/30/21 11:47 Pulse Ox 92 L 09/30/21 11:47 Intake & Output 09/29/21 09/30/21 09/30/21 18:59 06:59 18:59 Intake Total 200 Output Total 1500 Balance -1300 Intake: Intake, IV Titration 200 Amount Piperacillin-Tazobactam 3 100 .375 gm In Sodium Chloride 0.9% 100 ml @ 25 mls/hr IVPB Q8H [facility] Rx#: [id number] metroNIDAZOLE-NS PMX 500 100 mg In Saline 1 100ml.bag @ 100 mls/hr IVPB Q8H [facility] Rx#:[id number] Output: Urine 1500 Other: Voiding Method Toilet External Catheter External Catheter # Voids 2 - Exam GENERAL: The patient is alert and oriented x3, not in any acute distress. Well developed, well nourished. HEENT: Pupils are round and equally reacting to light. EOMI. No scleral icterus. No conjunctival pallor. Normocephalic, atraumatic. No pharyngeal erythema. No thyromegaly. CARDIOVASCULAR: S1 and S2 present. No murmurs, rubs, or gallops. PULMONARY: Chest is clear to auscultation, no wheezing or crackles. ABDOMEN: Soft, nontender, nondistended, normoactive bowel sounds. No palpable organomegaly. MUSCULOSKELETAL: No joint swelling or deformity. EXTREMITIES: No cyanosis, clubbing, or pedal edema. NEUROLOGICAL: Gross neurological examination did not reveal any focal deficits. SKIN: No rashes. - Labs CBC & Chem 7: 09/30/21 07:17 09/30/21 07:17 Labs: Abnormal Lab Results - Last 24 Hours (Table) 09/30/21 09/30/21 09/30/21 Range/Units 07:17 07:17 08:55 MCV 106.1 H (80.0-100.0) fL MCHC 30.7 L (31.0-37.0) g/dL Glucose 61 L (74-99) mg/dL POC Glucose (mg/dL) 53 L (75-99) mg/dL Calcium 8.0 L (8.4-10.2) mg/dL Assessment and Plan Assessment: 1. Atrial fibrillation with RVR; patient has been evaluated by cardiology; IV Cardizem was discontinued and patient is recommended to be placed on increased dose of metoprolol and continue with anticoagulation therapy; 2-D echo is ordered 2. Abdominal pain/partial bowel obstruction; CT of the abdomen revealed suspected partial large bowel obstruction secondary to eccentric bowel wall thickening of sigmoid colon which is suspicious for primary malignancy 3. Mild renal insufficiency/dehydration; IV fluid hydration with normal saline at rate of 75 mL; we will monitor strict MEGHAN's, renal function and electrolytes; avoid nephrotoxins and hypotension 4. Hypertension; metoprolol 50 mg by mouth twice a day 5. Hyperlipidemia; Lipitor 40 mg by mouth daily at bedtime 6. COPD; not in exacerbation DVT prophylaxis; SCDs/systemic anticoagulation CODE STATUS; full code
[2021-09-30] MEDS: ATORVASTATIN 40 MG TAB PO SCH (20:54)
[2021-10-01] MEDS: HYDROmorphone 1 MG/ML 1 ML SYRINGE IVP PRN ×2 (01:36→08:12)
[2021-10-01] MEDS: PIPERACILLIN-TAZOBACTAM 3.375 GM in SODIUM CHLORIDE 0.9% 100 ML IVPB SCH ×2 (01:38→23:40)
[2021-10-01] MEDS: metroNIDAZOLE-NS PMX 500 MG in SALINE 1 100ML.BAG IVPB SCH ×2 (04:15→12:38)
--- NOTE | 2021-10-01 07:26 | XR ---
EXAMINATION TYPE: XR abdomen 2V DATE OF EXAM: 10/01/2021 CLINICAL HISTORY: Abdominal pain. Bowel obstruction. Abnormal CT. TECHNIQUE: Supine and upright views of the abdomen are obtained. COMPARISON: CT abdomen and pelvis 3 days ago. FINDINGS: Scattered gas is seen in non-distended stomach and small bowel loops. Gas prominent coloni c loops with air-fluid levels including mild thecal prominence in the left colon redemonstrated. Left -sided 5 mm renal calculus redemonstrated. No free air. Lung bases remain clear. Osseous structures a re intact. IMPRESSION: Overall nonspecific bowel gas pattern redemonstrated. Persistent partial colonic obstruc tion due to suspected sigmoid mass or neoplasm. No significant change from recent CT.
[2021-10-01] MEDS: DEXTROSE 5%-0.45% NACL 1,000 ML IV SCH (08:04)
[2021-10-01] MEDS: METOPROLOL TARTRATE 50 MG TAB PO SCH ×3 (08:12→23:47)
[2021-10-01] MEDS: DIGOXIN 125 MCG TAB PO SCH (08:12)
[2021-10-01 08:44] LABS: Basophils % (A) 0 %; Eosinophils # (A) 0.1 k/uL (0-0.7); Eosinophils % (A) 1 %; HCT 42.9 % (34.0-46.0); Lymphocytes # (A) 0.7 k/uL (1.0-4.8); Lymphocytes % (A) 8 %; MCH 32.2 pg (25.0-35.0); MCHC 30.4 g/dL (31.0-37.0); MCV 106.1 fL (80.0-100.0); Macrocytosis Slight; Mean Platelet Volume 7.3; Monocytes # (A) 0.6 k/uL (0-1.0); Monocytes % (A) 7 %; Neutrophils # (A) 7.2 k/uL (1.3-7.7); Neutrophils % (A) 83 %; Platelet Count 231 k/uL (150-450); RBC 4.04 m/uL (3.80-5.40); RDW 12.6 % (11.5-15.5); WBC 8.7 k/uL (3.8-10.6)
[2021-10-01] MEDS ORDERED: FUROSEMIDE 20 MG TAB PO SCH (09:00)
[2021-10-01 09:02] LABS: Calcium 7.9 mg/dL (8.4-10.2); Potassium 3.5 mmol/L (3.5-5.1)
--- NOTE | 2021-10-01 13:33 | P.PN ---
Subjective This is a pleasant 66-year-old female past medical history significant for persistent atrial fibrillation s/p previous cardioversion in 2019 and recently in 07/2021, chronic nicotine dependence, COPD, coronary artery disease (09/20/21 heart catheterization revealing chronic total occlusion of the RCA with intermediate disease involving the left coronary system 45% stenosis ostial LAD. She follows with Dr. Perez. We have been asked to see in consultation for chest pain and atrial fibrillation with RVR. Patient presents to the emergency department with abdominal pain. CT of the abdomen and pelvis revealed partial large bowel obstruction secondary to eccentric bowel wall thickening of the sigmoid colon. Patient seen and examined at bedside, no acute distress. She continues to be in atrial fibrillation with controlled ventricular rates. Hemodynamically she is stable. Anticoagulation is on hold due to surgery today. Echocardiogram revealed an EF of 4550 percent, mild aortic regurgitation, mild mitral regurgitation, mild pulmonary hypertension She's currently maintained on atorvastatin 40 mg nightly, digoxin 125mcg daily, Lasix 20 mg daily, metoprolol titrate 50 mg 3 times a day VITALS: Blood pressure 102/60, heart rate 88 afebrile, oxygen saturations 94% on 2 L nasal cannula GENERAL: Well-appearing, well-nourished and in no acute distress. NECK: Supple without JVD or thyromegaly. LUNGS: Breath sounds clear to auscultation bilaterally. Respiration equal and unlabored. No wheezes, rales or rhonchi. HEART: Irregular rate and rhythm without murmurs, rubs or gallops. S1 and S2 heard. EXTREMITIES: Normal range of motion, no edema. No clubbing or cyanosis. Peripheral pulses intact. ASSESSMENT Suspected partial large bowel obstruction seen on CT Persistent atrial fibrillation status post cardioversion 2018 and recently in 07/2021, on Eliquis Chronic nicotine dependence COPD Coronary artery disease (09/20/21 heart catheterization revealing chronic total occlusion of the RCA with intermediate disease involving the left coronary system 45% stenosis ostial LAD. Hypertension Dyslipidemia PLAN We will continue current medication with statin and metoprolol Anticoagulation on hold for possible exploratory lap with Dr. turner today, restart anticoagulation per surgery recommendations Further recommendations based on clinical course Nurse Practitioner note has been reviewed, I agree with a documented findings and plan of care. Patient was seen and examined. Objective - Vital Signs Vital signs: Vital Signs Temp 98.3 F 10/01/21 04:00 Pulse 88 05/09/22 04:00 Resp 20 10/01/21 04:00 BP 102/60 10/01/21 04:00 Pulse Ox 96 10/01/21 04:00 Intake & Output 09/30/21 10/01/21 10/01/21 18:59 06:59 18:59 Intake Total 0 Balance 0 Weight 57.4 kg Intake: Oral 0 Other: Voiding Method External Catheter External Catheter # Voids 2 1 - Labs CBC & Chem 7: 10/01/21 07:36 10/01/21 07:36 Labs: Abnormal Lab Results - Last 24 Hours (Table) 10/01/21 10/01/21 Range/Units 07:36 07:36 MCV 106.1 H (80.0-100.0) fL MCHC 30.4 L (31.0-37.0) g/dL Lymphocytes # 0.7 L (1.0-4.8) k/uL Calcium 7.9 L (8.4-10.2) mg/dL
[2021-10-01] MEDS ORDERED: LACTATED RINGERS 1,000 ML IV ONE ×3 (16:01→21:00)
[2021-10-01] MEDS ORDERED: ONDANSETRON 4 MG/2 ML VIAL ONE (16:05)
[2021-10-01 16:12] LABS: Glucose,Whole Blood 83 mg/dL (75-99)
[2021-10-01] MEDS ORDERED: HEPARIN SODIUM,PORCINE/PF 5,000 UNIT/0.5 ML SYRINGE SQ ONE (16:13)
[2021-10-01 16:17] LABS: INR 1.4 (<1.2); Prothrombin Time 14.4 sec (9.0-12.0)
[2021-10-01] MEDS ORDERED: ONDANSETRON 4 MG/2 ML VIAL IVP ONE (16:30)
[2021-10-01] MEDS ORDERED: DEXAMETHASONE SOD PHOSPHATE 4 MG/ML 1 ML VIAL IVP ONE (16:30)
[2021-10-01] MEDS ORDERED: PROPOFOL 10 MG/ML 20 ML VIAL IV ONE (17:08)
[2021-10-01] MEDS ORDERED: KETAMINE 10 MG/ML 20 ML VIAL ONE (17:08)
[2021-10-01] MEDS ORDERED: GLYCOPYRROLATE 0.2 MG/ML 2 ML VIAL ONE (17:08)
[2021-10-01] MEDS ORDERED: METOPROLOL TARTRATE 5 MG/5 ML VIAL IVP ONE (17:08)
[2021-10-01] MEDS ORDERED: LABETALOL 5 MG/ML VIAL MDV ONE (17:08)
[2021-10-01] MEDS ORDERED: LIDOCAINE 2% INJ 20 MG/ML (2 ML VIAL) ONE (17:08)
[2021-10-01] MEDS ORDERED: PHENYLEPHRINE-0.9% NACL SYG 1,000 MCG/10 ML SYRINGE ONE (17:08)
[2021-10-01] MEDS ORDERED: NEOSTIGMINE 1 MG/ML 10 ML VIAL ONE (17:08)
[2021-10-01] MEDS ORDERED: ETOMIDATE 2 MG/ML 10 ML VIAL ONE (17:08)
[2021-10-01] MEDS ORDERED: SUCCINYLCHOLINE CHLORIDE 100 MG/5 ML SYR IV ONE (17:08)
[2021-10-01] MEDS ORDERED: ROCURONIUM 10 MG/ML (5 ML VIAL) IV ONE (17:08)
[2021-10-01] MEDS ORDERED: fentaNYL (PF) 50 MCG/ML 2 ML AMP ONE (17:08)
--- NOTE | 2021-10-01 17:11 | P.PN ---
Progress Note - Text Progress Note Date: 10/01/21 Patient has continued to have severe obstipation. She has not had any flatus or stool for 48 hours. She has complaints of crampy abdominal pain. Her abdomen is distended. On exam vital signs are stable. Abdomen is soft distended with mild tenderness throughout. Partial to complete colonic obstruction. Patient will undergo diverting colostomy and possible sigmoid resection today. Patient is aware that she will not be able to have her colon reanastomosed due to unprepped distended bowel.
--- NOTE | 2021-10-01 17:25 | P.PN ---
Subjective 66-year-old female presents to the emergency department with a chief complaint of abdominal pain. Patient states her symptoms started 10 days ago. Describes it as generalized abdominal pain with no radiation. No back pain. She states she had intermittent nausea for the first couple days that has since resolved. No fever, chills, vomiting, or diarrhea. Normal bowel movements with last bowel movement yesterday, nonbloody. Patient has been tolerating oral intake okay however states her appetite has decreased. No burning with urination, increased urinary frequency/urgency, or blood in the urine. No chest pain or shortness of breath. Patient does have history of atrial fibrillation on Eliquis. No upper respiratory symptoms or recent sick contacts. No previous abdominal surgeries. Patient does admit to tobacco use with [id number] history. She denies family history of aneurysm. CT is significant for a suspected partial large bowel obstruction secondary to eccentric bowel wall thickening of the sigmoid colon which is suspicious for primary malignancy. EKG revealed atrial fibrillation with rapid ventricular response; patient was started on IV Cardizem Patient continues to have abdominal distention and pain; no bowel movements; general surgery on board and planning to repeat abdominal x-ray with tentative plan for partial colectomy tomorrow Patient remains in atrial fibrillation with controlled ventricular response at this time; no anticoagulation therapy for anticipated surgery in next 24-48 h ours; echocardiogram reveals normal LV function and no significant valvular abnormalities; cardiology on board and recommending to continue with Lasix 20 mg daily for mild fluid overload; Resume the care of the patient 10/01/2021. Patient awake and alert. She still with abdominal complaint and pain and discomfort with no bowel movement. Surgery team are planning for exploratory laparotomy with possible diverting colostomy and possible sigmoid resection. [facility] team on the case also for preop evaluation and also for her A. fib. Currently rate controlled on metoprolol and oral Lasix. She is on D5 half-normal saline at 50 mL per hour, Flagyl and Zosyn. Labs look stable. Objective - Vital Signs Vital signs: Vital Signs Temp 97.6 F 10/01/21 08:00 Pulse 106 H 10/01/21 08:00 Resp 20 10/01/21 08:00 BP 138/75 10/01/21 08:00 Pulse Ox 94 L 10/01/21 08:00 Intake & Output 05/01/1410/01/21 10/01/21 18:59 06:59 18:59 Intake Total 0 Balance 0 Weight 57.4 kg Intake: Oral 0 Other: Voiding Method External Catheter External Catheter External Catheter # Voids 2 1 2 - Exam GENERAL: The patient is alert and oriented x3, not in any acute distress. Well developed, well nourished. HEENT: Pupils are round and equally reacting to light. EOMI. No scleral icterus. No conjunctival pallor. Normocephalic, atraumatic. No pharyngeal erythema. No thyromegaly. CARDIOVASCULAR: S1 and S2 present. No murmurs, rubs, or gallops. PULMONARY: Chest is clear to auscultation, no wheezing or crackles. -ABDOMEN: Soft, mild generalized tenderness and mild generalized distention, normoactive bowel sounds. No palpable organomegaly. MUSCULOSKELETAL: No joint swelling or deformity. EXTREMITIES: No cyanosis, clubbing, or pedal edema. NEUROLOGICAL: Gross neurological examination did not reveal any focal deficits. SKIN: No rashes. no petechiae. - Labs CBC & Chem 7: 10/01/21 07:36 10/01/21 07:36 Labs: Abnormal Lab Results - Last 24 Hours (Table) 10/01/21 10/01/21 Range/Units 07:36 07:36 MCV 106.1 H (80.0-100.0) fL MCHC 30.4 L (31.0-37.0) g/dL Lymphocytes # 0.7 L (1.0-4.8) k/uL Calcium 7.9 L (8.4-10.2) mg/dL Assessment and Plan Assessment: Sigmoid wall thickening suspicious for sigmoid months with partial colon obstruction. Patient undergo an exploratory laparotomy and diverting colostomy with possible bowel resection by surgery team. A. fib and RVR. Hypertension Hyperlipidemia History of COPD, not in activation Plan: this is a pleasant 66 years old female. Going for bowel surgery for her possible colon mass. Also with A. fib. Patient is going for surgery today. Surgery team on the case. Continue with Flagyl and Zosyn and gentle hydration. Cardiology team on the case, continue with metoprolol. Labs and medication were reviewed.. Continue same treatment. Continue with symptomatic treatment. Resume home medication. Monitor lytes and vitals. DVT and GI prophylaxis. Further recommendationsas per clinical course of the patient DVT prophylaxis: Not correlation for patient on for surgery GI Prophylaxis: Pepcid PT/OT: Pending Prognosis is guarded
[2021-10-01] MEDS ORDERED: FAMOTIDINE 20 MG/2 ML VIAL IV SCH (21:00)
--- NOTE | 2021-10-01 21:24 | P.GSCN ---
History of Present Illness Consult date: 10/01/21 Reason for Consult: Left ureteral injury History of present illness: This is a 66-year-old female undergoing a sigmoid resection for a colon mass. Of note the mass was invading the bladder, the sidewall and involve the left ureter. Thus there was a transection injury to the left ureter. Urology was consulted intraoperatively for ureteral repair. Preoperative imaging showed no evidence of renal or ureteral abnormality Past Medical History Past Medical History: Atrial Fibrillation, COPD, Hyperlipidemia, Hypertension History of Any Multi-Drug Resistant Organisms: None Reported Past Surgical History: Tubal Ligation Additional Past Surgical History / Comment(s): Colonoscopy. Cardioversion Past Anesthesia/Blood Transfusion Reactions: No Reported Reaction Additional Past Anesthesia/Blood Transfusion Reaction / Comm: NO PREVIOUS ANESTHESIA Past Psychological History: No Psychological Hx Reported Additional Psychological History / Comment(s): Pt resides with her significant other. She is independent. Smoking Status: Current every day smoker Past Alcohol Use History: Occasional Additional Past Alcohol Use History / Comment(s): Smoked 45 years, quit 03/2021 but started again, now <1PPD. Pt used to drink 4 gin/tonics every day, now states 2 drinks daily Past Drug Use History: None Reported Additional Drug Use History / Comment(s): Rare use of marijuana in past - Past Family History Father Family Medical History: Myocardial Infarction ([place]) Additional Family Medical History / Comment(s): Father of a [place] at the age of 54yrs. Mother Family Medical History: Cancer, Diabetes Mellitus Additional Family Medical History / Comment(s): BREAST CA Sister(s) Family Medical History: Cancer Medications and Allergies Home Medications Medication Instructions Recorded Confirmed Type Apixaban [Eliquis] 5 mg PO BID 30 Days #60 tab 04/12/21 09/28/21 Rx Metoprolol Tartrate 50 mg PO BID 08/17/21 09/28/21 History Atorvastatin [Lipitor] 40 mg PO HS 09/28/21 09/28/21 History Digoxin [Lanoxin] 125 mcg PO DAILY 09/28/21 09/28/21 History Allergies Allergy/AdvReac Type Severity Reaction Status Date / Time No Known Allergies Allergy Verified 09/28/21 18:24 Surgical - Exam Vital Signs Temp Pulse Resp BP Pulse Ox 97.8 F 80 22 120/64 97 09/28/21 13:03 09/28/21 13:03 09/28/21 13:03 09/28/21 13:03 09/28/21 13:03 - Respiratory intubated Results - Labs 10/01/21 07:36 10/01/21 07:36 Abnormal Lab Results - Last 24 Hours (Table) 10/01/21 10/01/21 10/01/21 Range/Units 07:36 07:36 16:02 MCV 106.1 H (80.0-100.0) fL MCHC 30.4 L (31.0-37.0) g/dL Lymphocytes # 0.7 L (1.0-4.8) k/uL PT 14.4 H (9.0-12.0) sec INR 1.4 H (<1.2) Calcium 7.9 L (8.4-10.2) mg/dL Diabetes panel 10/01/21 Range/Units 07:36 Sodium 141 (137-145) mmol/L Potassium 3.5 (3.5-5.1) mmol/L Chloride 105 (98-107) mmol/L Carbon Dioxide 27 (22-30) mmol/L BUN 13 (7-17) mg/dL Creatinine 0.82 (0.52-1.04) mg/dL Glucose 96 (74-99) mg/dL Calcium 7.9 L (8.4-10.2) mg/dL Calcium panel 10/01/21 Range/Units 07:36 Calcium 7.9 L (8.4-10.2) mg/dL Pituitary panel 10/01/21 Range/Units 07:36 Sodium 141 (137-145) mmol/L Potassium 3.5 (3.5-5.1) mmol/L Chloride 105 (98-107) mmol/L Carbon Dioxide 27 (22-30) mmol/L BUN 13 (7-17) mg/dL Creatinine 0.82 (0.52-1.04) mg/dL Glucose 96 (74-99) mg/dL Calcium 7.9 L (8.4-10.2) mg/dL Adrenal panel 10/01/21 Range/Units 07:36 Sodium 141 (137-145) mmol/L Potassium 3.5 (3.5-5.1) mmol/L Chloride 105 (98-107) mmol/L Carbon Dioxide 27 (22-30) mmol/L BUN 13 (7-17) mg/dL Creatinine 0.82 (0.52-1.04) mg/dL Glucose 96 (74-99) mg/dL Calcium 7.9 L (8.4-10.2) mg/dL Assessment and Plan Assessment: Will perform Intraoperative repair of left ureteral injury
[2021-10-01] MEDS ORDERED: ONDANSETRON 4 MG/2 ML VIAL IVP PRN (21:39)
[2021-10-01] MEDS ORDERED: METOCLOPRAMIDE 5 MG/ML 2 ML VIAL IVP PRN (21:39)
[2021-10-01] MEDS ORDERED: BENZOCAINE/MENTHOL LOZENG 1 EACH LOZENGE MUCOUS MEM PRN (21:39)
--- NOTE | 2021-10-01 21:39 | P.OP ---
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 She received general endotracheal tube anesthesia. And was entered through midline incision. The colon was quite dilated. In the left lower quadrant the year was a obvious mass of the sigmoid colon the mass was quite large and appeared to be going into the left bladder. The left colon was mobilized by dividing the white line of Toldt's. And then the sigmoid colon was mobilized by dividing the lateral attachments and sigmoid colon. There were significant adhesions to the mass. The mass was growing into the bladder. A partial cystectomy was performed. The mass was then rotated medially. Using the MCKENZIE stapler the proximal bowel was then transected. And then using the Enseal device the mesentery the bowel was divided. The rectum was then transected with a GI stapler. The specimen sent to pathology. The pelvis was examined. There appeared to be transection of the ureter. At this point the urologist was called. was docked to directly on the phone. I explained him that I was concerned of possible ureteral injury. He was approximately 45 minutes away from the operating room. At this point the bladder was repaired with 3-0 Vicryl in 2 layers. The appendix was visualized in the pelvis. Due to the extensive surgery decided perform appendectomy. Enteritis of the appendix was divided using the Enseal device and then the epididymis performed using the GI stapler. The abdomen was covered with towels. Dr. aguilar was scrubbed in at approximately [id number]. Please see his operative note for repair of the ureter. After the repair was performed. The colostomy was brought up in the left upper quadrant. A LUZMA drains placed in the pelvis and brought through separate stab incision. The fascia was closed with looped #1 PDS suture. Skin was closed sahil. Patient tolerated procedure well.. She was sent to recovery in stable condition.
[2021-10-01] MEDS ORDERED: propofoL 100 ML IV ONE (22:39)
[2021-10-01 22:47] LABS: Glucose,Whole Blood 143 mg/dL (75-99)
[2021-10-01 22:57] LABS: ABG Base Excess 0.1 mmol/L; ABG HCO3 26 mmol/L (21-25); ABG Oxygen Saturation 98.9 % (94-97); ABG PCO2 52 mmHg (35-45); ABG PH 7.31 (7.35-7.45); ABG PO2 >400 mmHg (83-108); ABG TCO2 28 mmol/L (19-24); Allen Test Performed? Yes
[2021-10-01] MEDS: ATORVASTATIN 40 MG TAB PO SCH (23:41)
[2021-10-02] MEDS: PIPERACILLIN-TAZOBACTAM 3.375 GM in SODIUM CHLORIDE 0.9% 100 ML IVPB SCH ×4 (00:02→22:18)
[2021-10-02] MEDS: D5-0.45% NACL WITH KCL 20MEQ/L 1,000 ML IV SCH ×4 (00:19→23:00)
[2021-10-02] MEDS: HEPARIN SODIUM,PORCINE/PF 5,000 UNIT/0.5 ML SYRINGE SQ SCH ×3 (00:19→16:19)
--- NOTE | 2021-10-02 00:28 | XR ---
EXAMINATION TYPE: XR chest 1V DATE OF EXAM: 10/02/2021 COMPARISON: 09/29/2021 HISTORY: Short of breath TECHNIQUE: Single view FINDINGS: Heart is normal. There is nasogastric tube in the stomach. Endotracheal tube is 4 cm from t he pavan. There is some atelectasis right lung base. There are no hilar masses. Thoracic aorta is at heromatous. IMPRESSION: There is some mild infiltrate and atelectasis right lung base that is improved compared t o old exam. No heart failure. There is clearing of the pulmonary congestion.
[2021-10-02 01:05] LABS: Appearance,Urine Clear (Clear); Bilirubin,Urine Negative (Negative); Blood,Urine Large (Negative); Color,Urine Light Red; Glucose,Urine (UA) Negative (Negative); Ketones,Urine Negative (Negative); Leukocyte Esterase,Urine Moderate (Negative); Nitrite,Urine Negative (Negative); PH, Urine 6.5 (5.0-8.0); Protein,Urine Trace (Negative); RBC,Urine >182 /hpf (0-5); Specific Gravity,Urine 1.012 (1.001-1.035); Squamous Epithelial Cell,Urine 4 /hpf (0-4); Urobilinogen,Urine <2.0 mg/dL (<2.0); WBC,Urine 15 /hpf (0-5)
[2021-10-02] MEDS ORDERED: propofoL 100 ML IV ONE (01:40)
[2021-10-02] MEDS ORDERED: SODIUM CHLORIDE 0.9% 1,000 ML IV ONE ×2 (02:00→13:29)
[2021-10-02] MEDS: metroNIDAZOLE-NS PMX 500 MG in SALINE 1 100ML.BAG IVPB SCH ×4 (02:09→21:15)
[2021-10-02] MEDS: DEXTROSE 5%-0.45% NACL 1,000 ML IV SCH (02:33)
[2021-10-02] MEDS: NOREPINEPHRINE 4 MG in SODIUM CHLORIDE 0.9% 250 ML IV SCH (05:20)
[2021-10-02 05:59] LABS: ABG Base Excess -1.7 mmol/L; ABG HCO3 24 mmol/L (21-25); ABG Oxygen Saturation 94.1 % (94-97); ABG PCO2 47 mmHg (35-45); ABG PH 7.32 (7.35-7.45); ABG PO2 76 mmHg (83-108); ABG TCO2 26 mmol/L (19-24); Allen Test Performed? Yes
[2021-10-02 06:21] LABS: Glucose,Whole Blood 206 mg/dL (75-99)
[2021-10-02] MEDS: INSULIN ASPART (NovoLOG) 100 UNIT/ML VIAL SQ SCH ×4 (06:33→21:08)
--- NOTE | 2021-10-02 07:21 | P.PN ---
Subjective Progress Note Date: 10/02/21 PROGRESS NOTE The patient is a 66-year-old female with a known history of paroxysmal atrial fibrillation, CAD who presented with abdominal discomfort and was found to have an abdominal mass, underwent surgery yesterday and was found to have large colon tumor of the sigmoid colon invading the bladder. She underwent sigmoid colectomy and end colostomy with partial cystectomy, appendectomy. She is intubated and sedated in atrial fibrillation with controlled ventricular response. Her urine output has improved after receiving IV fluid. Her oxygenation is stable. She is on no vasopressors. Her echocardiogram preoperatively showed a mildly impaired systolic function. She continues to be on digoxin, Lipitor 40 mg daily, metoprolol 50 mg 3 times a day in addition to the antibiotics. PHYSICAL EXAMINATION: Blood pressure 103/58 heart rate 80 anteriorly LUNGS: Clear to auscultation HEART: Irregular rate and rhythm, S1, S2. No S3. systolic murmur, 2/6 at the left upper sternal border ABDOMEN: Soft, hypoactive bowel sounds, dressing in place, colostomy noted EXTREMETIES: No edema LAB: PH 7.32, P CO2 47, pO2 76 IMPRESSION: 1. Status post sigmoid mass resection, probable malignancy with invasion of the bladder 2. Atrial fibrillation, rate controlled 3. History of CAD, stable 4. History of hyperlipidemia PLAN: 1. Continue beta abi 2. Reinitiate anticoagulation when okay with surgery 3. Follow renal functions closely 4. Probable wean and extubate today 5. Hold digoxin for now and follow ventricular response Objective - Vital Signs Vital signs: Vital Signs Temp 98.1 F 10/02/21 04:00 Pulse 80 10/02/21 07:00 Resp 18 10/02/21 07:00 BP 103/58 10/02/21 07:00 Pulse Ox 95 10/02/21 06:00 Intake & Output 10/01/21 10/02/21 10/02/21 18:59 06:59 18:59 Intake Total 1999 4157.109 125 Output Total 850 40 Balance 1999 3307.109 85 Intake: IV 1999 4075 125 D5-0.45% NaCl with KCl 875 125 20Meq/l 1,000 ml @ 125 mls/hr IV .Q8H [facility] Rx#: [id number] Piperacillin-Tazobactam 3 100 .375 gm In Sodium Chloride 0.9% 100 ml @ 25 mls/hr IVPB Q8H [facility] Rx#: [id number] Sodium Chloride 0.9% 1, 2500 000 ml @ 999 mls/hr IV . Q1H1M [facility] Rx#:[id number] metroNIDAZOLE-NS PMX 500 100 mg In Saline 1 100ml.bag @ 100 mls/hr IVPB Q8H [facility] Rx#:[id number] Intake, IV Titration 82.109 Amount propofoL 1,000 mg In 82.109 Empty Bag 1 bag @ 5 MCG/ KG/MIN 1.722 mls/hr IV . Q24H [facility] Rx#:[id number] Output: Drainage 240 Right Abdomen 240 Urine 410 40 Estimated Blood Loss 200 Other: Voiding Method External Catheter Indwelling Catheter # Voids 2 - Labs CBC & Chem 7: 10/01/21 07:36 10/01/21 07:36 Labs: Abnormal Lab Results - Last 24 Hours (Table) 10/01/21 10/01/21 10/01/21 Range/Units 07:36 07:36 16:02 MCV 106.1 H (80.0-100.0) fL MCHC 30.4 L (31.0-37.0) g/dL Lymphocytes # 0.7 L (1.0-4.8) k/uL PT 14.4 H (9.0-12.0) sec INR 1.4 H (<1.2) ABG pH (7.35-7.45) ABG pCO2 (35-45) mmHg ABG pO2 (83-108) mmHg ABG HCO3 (21-25) mmol/L ABG Total CO2 (19-24) mmol/L ABG O2 Saturation (94-97) % POC Glucose (mg/dL) (75-99) mg/dL Calcium 7.9 L (8.4-10.2) mg/dL Urine Protein (Negative) Urine Blood (Negative) Ur Leukocyte Esterase (Negative) Urine RBC (0-5) /hpf Urine WBC (0-5) /hpf 10/01/21 10/01/21 10/02/21 Range/Units 22:45 22:50 00:37 MCV (80.0-100.0) fL MCHC (31.0-37.0) g/dL Lymphocytes # (1.0-4.8) k/uL PT (9.0-12.0) sec INR (<1.2) ABG pH 7.31 L (7.35-7.45) ABG pCO2 52 H (35-45) mmHg ABG pO2 >400 H (83-108) mmHg ABG HCO3 26 H (21-25) mmol/L ABG Total CO2 28 H (19-24) mmol/L ABG O2 Saturation 98.9 H (94-97) % POC Glucose (mg/dL) 143 H (75-99) mg/dL Calcium (8.4-10.2) mg/dL Urine Protein Trace H (Negative) Urine Blood Large H (Negative) Ur Leukocyte Esterase Moderate H (Negative) Urine RBC >182 H (0-5) /hpf Urine WBC 15 H (0-5) /hpf 10/02/21 10/02/21 Range/Units 05:54 06:19 MCV (80.0-100.0) fL MCHC (31.0-37.0) g/dL Lymphocytes # (1.0-4.8) k/uL PT (9.0-12.0) sec INR (<1.2) ABG pH 7.32 L (7.35-7.45) ABG pCO2 47 H (35-45) mmHg ABG pO2 76 L (83-108) mmHg ABG HCO3 (21-25) mmol/L ABG Total CO2 26 H (19-24) mmol/L ABG O2 Saturation (94-97) % POC Glucose (mg/dL) 206 H (75-99) mg/dL Calcium (8.4-10.2) mg/dL Urine Protein (Negative) Urine Blood (Negative) Ur Leukocyte Esterase (Negative) Urine RBC (0-5) /hpf Urine WBC (0-5) /hpf
[2021-10-02 08:03] LABS: Basophils % (A) 0 %; Eosinophils % (A) 0 %; HCT 41.1 % (34.0-46.0); HGB 12.3 gm/dL (11.4-16.0); Hypochromasia Moderate; Lymphocytes # (A) 0.5 k/uL (1.0-4.8); Lymphocytes % (A) 4 %; MCH 32.5 pg (25.0-35.0); MCV 108.2 fL (80.0-100.0); Macrocytosis Moderate; Mean Platelet Volume 7.3; Monocytes # (A) 0.5 k/uL (0-1.0); Monocytes % (A) 4 %; Neutrophils # (A) 11.9 k/uL (1.3-7.7); Neutrophils % (A) 91 %; Platelet Count 189 k/uL (150-450); RDW 12.5 % (11.5-15.5)
[2021-10-02] MEDS: METOPROLOL TARTRATE 50 MG TAB PO SCH ×4 (08:04→22:00)
[2021-10-02 08:21] LABS: Calcium 6.6 mg/dL (8.4-10.2); Magnesium 1.1 mg/dL (1.6-2.3); Potassium 4.1 mmol/L (3.5-5.1)
[2021-10-02] MEDS ORDERED: Magnesium Replacement Protocol 1 EACH MISC MISCELLANE PRN (08:49)
[2021-10-02] MEDS ORDERED: FAMOTIDINE 20 MG/2 ML VIAL IV SCH (09:00)
[2021-10-02] MEDS ORDERED: ALVIMOPAN 12 MG CAPSULE PO SCH (09:00)
[2021-10-02] MEDS: KETOROLAC 15 MG/ML 1 ML VIAL IVP PRN ×2 (09:24→21:16)
[2021-10-02] MEDS: MAGNESIUM SULFATE-D5W PMX 1 GM in DEXTROSE/WATER 1 100ML.BAG IVPB SCH ×3 (09:40→13:37)
[2021-10-02] MEDS: HYDROmorphone 1 MG/ML 1 ML SYRINGE IVP PRN ×2 (09:40→17:49)
--- NOTE | 2021-10-02 10:35 | P.CNPUL ---
History of Present Illness Consult date: 10/02/21 Requesting physician: Ronald Carranza Reason for consult: other Chief complaint: Acute hypoxic respiratory failure History of present illness: This is a 66-year-old female patient with past a history of smoking, COPD, hypertension, hyperlipidemia, chronic A. fib, coronary artery disease, who pre sented to the emergency department on 09/28/2021 with chief complaint of abdominal pain which had been ongoing for 10 days prior to presentation. Patient was also complaining of intermittent nausea, but no fever, no chills, no vomiting or diarrhea. Denied any blood in the stools. CT of abdomen and pelvis with contrast in the emergency department showed partial large bowel obstruction secondary to extensive bowel wall thickening of the sigmoid colon that was suspicious for primary malignancy. There was a string dilation of the colon and small bowel, there was mild cardiomegaly and hepatic steatosis. Patient had a prior colonoscopy 3 years ago. Admission labs showed normal white count of 4.6, hemoglobin was 16.2, INR was 1.2, electrolytes and renal profile were unremarkable, troponin was negative at less than 0.012, proBNP was 4290, lipase was within normal limits at 75, LFTs were within normal limits, urinalysis showed 1+ ketones, rare bacteria, negative glucose, no clear evidence of infection. Patient recently had a heart catheterization in August 2021 which showed total occlusion of the RCA with intermediate disease involving the left coronary system, and preserved left ventricular systolic function. Patient was started on IV fluids, and antibiotics and surgical consultation was obtained. She was taken to surgery on 10/01/2021, by Dr. Carranza and Dr. Luevano and underwent exploratory laparotomy, sigmoid colectomy with end colostomy, partial cystectomy, left salpingectomy, appendectomy, and repair of left ureter. In the recovery room patient was extubated however she needed to be reintubated in the recovery room in view of difficulty breathing, hypoxia, and insufficient respiratory effort. She was admitted to the intensive care unit following a recent intubation. This morning she remains intubated and on mechanical ventilator, with assist control mode of ventilation with a rate of 18, tidal volume is 350, FiO2 of 40%, and PEEP of 5. Today's blood gas shows a pO2 of 76, pCO2 47, and pH of 7.32 this was done and the above-mentioned ventilator settings, today's chest x-ray showing mild infiltrate and atelectasis at the right lung base which is improved compared old exam, and there is clearing of the pulmonary congestion. Patient is currently on D5 half-normal saline with 20 of potassium at a rate of 125, and improving and at 25 mics per kilo per minute, she did require 2-1/2 L bolus last night for low urine output. She is not requiring any vasopressor support right now. Today's labs have been reviewed White blood cell count is 13, hemoglobin is 12.3, sodium is 137, potassium is 4.1, chloride is 109, BUN is 14, creatinine is 1.07. Urinalysis was repeated showing large amount of blood, moderate leuks, and 15 of white blood cells, patient is on Zosyn for empiric antibiotic coverage. Her surgical biopsy results are still pending. Abdominal incision is covered with a surgical dressing, clean dry and intact, well approximated, patient has left lower quadrant colostomy with no stool or gas. Review of Systems All systems: negative Constitutional: Denies chills, Denies fever Eyes: denies blurred vision, denies pain Ears, nose, mouth and throat: Denies headache, Denies sore throat Cardiovascular: Denies chest pain, Denies shortness of breath Respiratory: Reports dyspnea, Denies cough Gastrointestinal: Reports abdominal pain, Denies diarrhea, Denies nausea, Denies vomiting Genitourinary: Denies dysuria, Denies hematuria Musculoskeletal: Denies myalgias Integumentary: Denies pruritus, Denies rash Neurological: Denies numbness, Denies weakness Psychiatric: Denies anxiety, Denies depression Endocrine: Denies fatigue, Denies weight change Past Medical History Past Medical History: Atrial Fibrillation, COPD, Hyperlipidemia, Hypertension History of Any Multi-Drug Resistant Organisms: None Reported Past Surgical History: Tubal Ligation Additional Past Surgical History / Comment(s): Colonoscopy. Cardioversion Past Anesthesia/Blood Transfusion Reactions: No Reported Reaction Additional Past Anesthesia/Blood Transfusion Reaction / Comment(s): NO PREVIOUS ANESTHESIA Past Psychological History: No Psychological Hx Reported Additional Psychological History / Comment(s): Pt resides with her significant other. She is independent. Smoking Status: Current every day smoker Past Alcohol Use History: Occasional Additional Past Alcohol Use History / Comment(s): Smoked 45 years, quit 03/2021 but started again, now <1PPD. Pt used to drink 4 gin/tonics every day, now states 2 drinks daily Past Drug Use History: None Reported Additional Drug Use History / Comment(s): Rare use of marijuana in past - Past Family History Father Family Medical History: Myocardial Infarction (IN) Additional Family Medical History / Comment(s): Father of a IN at the age of 54yrs. Mother Family Medical History: Cancer, Diabetes Mellitus Additional Family Medical History / Comment(s): BREAST CA Sister(s) Family Medical History: Cancer Medications and Allergies Home Medications Medication Instructions Recorded Confirmed Type Apixaban [Eliquis] 5 mg PO BID 30 Days #60 tab 04/12/21 09/28/21 Rx Metoprolol Tartrate 50 mg PO BID 08/17/21 09/28/21 History Atorvastatin [Lipitor] 40 mg PO HS 09/28/21 09/28/21 History Digoxin [Lanoxin] 125 mcg PO DAILY 09/28/21 09/28/21 History Allergies Allergy/AdvReac Type Severity Reaction Status Date / Time No Known Allergies Allergy Verified 09/28/21 18:24 Physical Exam Vitals: Vital Signs Temp Pulse Pulse Resp BP BP Pulse Ox 10/02/21 10:00 93 16 127/58 95 10/02/21 09:00 93 28 H 110/68 96 10/02/21 08:00 98 F 96 20 97/58 97 10/02/21 07:45 97 10/02/21 07:30 20 97 10/02/21 07:00 80 18 103/58 10/02/21 06:00 84 18 90/54 95 10/02/21 05:00 90 18 95/56 95 10/02/21 04:00 98.1 F 81 18 96/52 95 10/02/21 03:00 95 18 109/64 99 10/02/21 02:00 111 H 18 81/57 99 10/02/21 01:00 110 H 18 68/34 97 10/02/21 00:00 134 H 18 109/53 97 10/01/21 23:30 18 10/01/21 23:00 121 H 18 125/95 100 10/01/21 22:45 97.5 F L 126 H 18 103/79 100 10/01/21 15:43 98.2 F 87 20 138/74 92 L 10/01/21 14:00 66 20 10/01/21 12:00 97.8 F 66 18 112/65 92 L Intake and Output 10/01/21 10/02/21 10/02/21 22:59 06:59 14:59 Intake Total 2500 3657.109 660.442 Output Total 450 400 285 Balance 2050 3257.109 375.442 Intake: IV 2500 3575 600 D5-0.45% NaCl with KCl 875 500 20Meq/l 1,000 ml @ 125 mls/hr IV .Q8H [facility] Rx#: [id number] Magnesium Sulfate-D5w Pmx 100 1 gm In Dextrose/Water 1 100ml.bag @ 100 mls/hr IVPB Q1H [facility] Rx#: [id number] Piperacillin-Tazobactam 3 100 .375 gm In Sodium Chloride 0.9% 100 ml @ 25 mls/hr IVPB Q8H [facility] Rx#: [id number] Sodium Chloride 0.9% 1, 2500 000 ml @ 999 mls/hr IV . Q1H1M [facility] Rx#:[id number] metroNIDAZOLE-NS PMX 500 100 mg In Saline 1 100ml.bag @ 100 mls/hr IVPB Q8H [facility] Rx#:[id number] Intake, IV Titration 82.109 60.442 Amount propofoL 1,000 mg In 82.109 60.442 Empty Bag 1 bag @ 5 MCG/ KG/MIN 1.722 mls/hr IV . Q24H [facility] Rx#:[id number] Output: Gastric Drainage 50 Drainage 240 85 Right Abdomen 240 85 Urine 250 160 150 Estimated Blood Loss 200 Other: Voiding Method Indwelling Catheter Indwelling Catheter GENERAL EXAM: Sedated, intubated, 66-year-old female, on assist-control mode of ventilation comfortable in no apparent distress. HEAD: Normocephalic/atraumatic. EYES: Normal reaction of pupils, equal size. Conjunctiva pink, sclera white. NOSE: Clear with pink turbinates. THROAT: No erythema or exudates. NECK: No masses, no JVD, no thyroid enlargement, no adenopathy. CHEST: No chest wall deformity. Symmetrical expansion. LUNGS: Equal air entry with no crackles, wheeze, rhonchi or dullness. CVS: Regular rate and rhythm, normal S1 and S2, no gallops, no murmurs, no rubs ABDOMEN: Soft, nontender. Left lower quadrant colostomy in place, with scant amount of dark serosanguineous fluid, no stool or gas noted. Mid abdominal incision below the umbilicus is clean dry and intact, sahil are intact, covered with surgical dressing, LUZMA drain with small amount of serosanguineous drainage, compressed and draining No hepatosplenomegaly, normal bowel sounds, no guarding or rigidity. EXTREMITIES: No clubbing, no edema, no cyanosis, 2+ pulses and upper and lower extremities. MUSCULOSKELETAL: Muscle strength and tone normal. SPINE: No scoliosis or deformity SKIN: No rashes CENTRAL NERVOUS SYSTEM: Sedated No focal deficits, tone is normal in all 4 extremities. Results - Laboratory Findings CBC and BMP: 10/02/21 07:15 10/02/21 07:15 ABG ABG pH 7.32 (7.35-7.45) L 10/02/21 05:54 ABG pCO2 47 mmHg (35-45) H 10/02/21 05:54 ABG pO2 76 mmHg (83-108) L 10/02/21 05:54 ABG O2 Saturation 94.1 % (94-97) 10/02/21 05:54 PT/INR, D-dimer PT 14.4 sec (9.0-12.0) H 10/01/21 16:02 INR 1.4 (<1.2) H 10/01/21 16:02 Abnormal lab findings: Abnormal Labs 09/28/21 09/28/21 09/28/21 17:22 17:22 17:22 WBC Hgb 16.2 H Hct 51.6 H MCV 104.5 H MCHC Neutrophils # Lymphocytes # PT 12.4 H INR 1.2 H ABG pH ABG pCO2 ABG pO2 ABG HCO3 ABG Total CO2 ABG O2 Saturation Chloride BUN Creatinine Glucose POC Glucose (mg/dL) Calcium Magnesium Urine Appearance Cloudy H Urine Protein 1+ H Urine Ketones 1+ H Urine Blood Urine Bilirubin 1+ H Ur Leukocyte Esterase Urine RBC Urine WBC Ur Squamous Epith Cells 6 H Urine Bacteria Rare H Hyaline Casts 7 H Urine Mucus Many H 09/28/21 09/30/21 09/30/21 17:22 07:17 07:17 WBC Hgb Hct MCV 106.1 H MCHC 30.7 L Neutrophils # Lymphocytes # PT INR ABG pH ABG pCO2 ABG pO2 ABG HCO3 ABG Total CO2 ABG O2 Saturation Chloride BUN 23 H Creatinine Glucose 106 H 61 L POC Glucose (mg/dL) Calcium 8.0 L Magnesium Urine Appearance Urine Protein Urine Ketones Urine Blood Urine Bilirubin Ur Leukocyte Esterase Urine RBC Urine WBC Ur Squamous Epith Cells Urine Bacteria Hyaline Casts Urine Mucus 09/30/21 10/01/21 10/01/21 08:55 07:36 07:36 WBC Hgb Hct MCV 106.1 H MCHC 30.4 L Neutrophils # Lymphocytes # 0.7 L PT INR ABG pH ABG pCO2 ABG pO2 ABG HCO3 ABG Total CO2 ABG O2 Saturation Chloride BUN Creatinine Glucose POC Glucose (mg/dL) 53 L Calcium 7.9 L Magnesium Urine Appearance Urine Protein Urine Ketones Urine Blood Urine Bilirubin Ur Leukocyte Esterase Urine RBC Urine WBC Ur Squamous Epith Cells Urine Bacteria Hyaline Casts Urine Mucus 10/01/21 10/01/21 10/01/21 16:02 22:45 22:50 WBC Hgb Hct MCV MCHC Neutrophils # Lymphocytes # PT 14.4 H INR 1.4 H ABG pH 7.31 L ABG pCO2 52 H ABG pO2 >400 H ABG HCO3 26 H ABG Total CO2 28 H ABG O2 Saturation 98.9 H Chloride BUN Creatinine Glucose POC Glucose (mg/dL) 143 H Calcium Magnesium Urine Appearance Urine Protein Urine Ketones Urine Blood Urine Bilirubin Ur Leukocyte Esterase Urine RBC Urine WBC Ur Squamous Epith Cells Urine Bacteria Hyaline Casts Urine Mucus 10/02/21 10/02/21 10/02/21 00:37 05:54 06:19 WBC Hgb Hct MCV MCHC Neutrophils # Lymphocytes # PT INR ABG pH 7.32 L ABG pCO2 47 H ABG pO2 76 L ABG HCO3 ABG Total CO2 26 H ABG O2 Saturation Chloride BUN Creatinine Glucose POC Glucose (mg/dL) 206 H Calcium Magnesium Urine Appearance Urine Protein Trace H Urine Ketones Urine Blood Large H Urine Bilirubin Ur Leukocyte Esterase Moderate H Urine RBC >182 H Urine WBC 15 H Ur Squamous Epith Cells Urine Bacteria Hyaline Casts Urine Mucus 10/02/21 10/02/21 07:15 07:15 WBC 13.0 H Hgb Hct MCV 108.2 H MCHC 30.0 L Neutrophils # 11.9 H Lymphocytes # 0.5 L PT INR ABG pH ABG pCO2 ABG pO2 ABG HCO3 ABG Total CO2 ABG O2 Saturation Chloride 109 H BUN Creatinine 1.07 H Glucose 212 H POC Glucose (mg/dL) Calcium 6.6 L Magnesium 1.1 L Urine Appearance Urine Protein Urine Ketones Urine Blood Urine Bilirubin Ur Leukocyte Esterase Urine RBC Urine WBC Ur Squamous Epith Cells Urine Bacteria Hyaline Casts Urine Mucus - Diagnostic Findings Chest x-ray: report reviewed, image reviewed Assessment and Plan Plan: Assessment: #1. Acute hypoxic and hypercapnic respiratory failure following surgical procedure possibly related to procedural sedation and history of COPD, and patient had to be reintubated in the recovery room following exploratory laparotomy, sigmoid colectomy, partial cystectomy, left salpingectomy, appendectomy and repair of the left ureter on 10/01/2021. Chest x-ray today showing some mild infiltration and atelectasis at the right lung base #2. 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 Abdominal pain related to the above #4. Hypotension, related to hypovolemia, improved with IV fluid boluses #5. History of COPD #6. Former smoker #7. Coronary artery disease #8. Chronic A. fib on Eliquis which is currently on hold #9. Hypertension #10. Hyperlipidemia Plan: Patient was given a spontaneous awakening trial She was given a spontaneous breathing trial, and patient had satisfactory weaning parameters and positive cuff leak She was weaned and extubated this morning Tolerating extubation well Provide incentive spirometer We'll give the patient breathing treatments GI and DVT prophylaxis Continue IV fluids Dietary recommendations per surgery The timing of restarting anticoagulation per surgery Continue monitoring in the intensive care unit I have personally seen and examined the patient, performed the documentation and the assessment and plan as written. Number of minutes spent on the visit: [15] Time with Patient: Greater than 30
--- NOTE | 2021-10-02 12:35 | P.PN ---
Subjective Progress Note Date: 10/02/21 Principal diagnosis: sigmoid mass Pt being cleaned up this AM, ventilated post op, being extubated Objective - Vital Signs Vital signs: Vital Signs Temp 98 F 10/02/21 08:00 Pulse 91 10/02/21 11:00 Resp 14 10/02/21 11:00 BP 102/48 10/02/21 11:00 Pulse Ox 97 10/02/21 11:00 Intake & Output 10/01/21 10/02/21 10/02/21 18:59 06:59 18:59 Intake Total 1999 4157.109 1010.442 Output Total 850 470 Balance 1999 3307.109 540.442 Intake: IV 1999 4075 950 D5-0.45% NaCl with KCl 875 750 20Meq/l 1,000 ml @ 125 mls/hr IV .Q8H [facility] Rx#: [id number] Magnesium Sulfate-D5w Pmx 200 1 gm In Dextrose/Water 1 100ml.bag @ 100 mls/hr IVPB Q1H [facility] Rx#: [id number] Piperacillin-Tazobactam 3 100 .375 gm In Sodium Chloride 0.9% 100 ml @ 25 mls/hr IVPB Q8H [facility] Rx#: [id number] Sodium Chloride 0.9% 1, 2500 000 ml @ 999 mls/hr IV . Q1H1M [facility] Rx#:[id number] metroNIDAZOLE-NS PMX 500 100 mg In Saline 1 100ml.bag @ 100 mls/hr IVPB Q8H [facility] Rx#:[id number] Intake, IV Titration 82.109 60.442 Amount propofoL 1,000 mg In 82.109 60.442 Empty Bag 1 bag @ 5 MCG/ KG/MIN 1.722 mls/hr IV . Q24H [facility] Rx#:[id number] Output: Gastric Drainage 50 Drainage 240 175 Right Abdomen 240 175 Urine 410 245 Estimated Blood Loss 200 Other: Voiding Method External Catheter Indwelling Catheter Indwelling Catheter # Voids 2 - Constitutional General appearance: Present: average body habitus, no acute distress - Labs CBC & Chem 7: 10/02/21 07:15 10/02/21 07:15 Labs: Abnormal Lab Results - Last 24 Hours (Table) 10/01/21 10/01/21 10/01/21 Range/Units 16:02 22:45 22:50 WBC (3.8-10.6) k/uL MCV (80.0-100.0) fL MCHC (31.0-37.0) g/dL Neutrophils # (1.3-7.7) k/uL Lymphocytes # (1.0-4.8) k/uL PT 14.4 H (9.0-12.0) sec INR 1.4 H (<1.2) ABG pH 7.31 L (7.35-7.45) ABG pCO2 52 H (35-45) mmHg ABG pO2 >400 H (83-108) mmHg ABG HCO3 26 H (21-25) mmol/L ABG Total CO2 28 H (19-24) mmol/L ABG O2 Saturation 98.9 H (94-97) % Chloride (98-107) mmol/L Creatinine (0.52-1.04) mg/dL Glucose (74-99) mg/dL POC Glucose (mg/dL) 143 H (75-99) mg/dL Calcium (8.4-10.2) mg/dL Magnesium (1.6-2.3) mg/dL Urine Protein (Negative) Urine Blood (Negative) Ur Leukocyte Esterase (Negative) Urine RBC (0-5) /hpf Urine WBC (0-5) /hpf 10/02/21 10/02/21 10/02/21 Range/Units 00:37 05:54 06:19 WBC (3.8-10.6) k/uL MCV (80.0-100.0) fL MCHC (31.0-37.0) g/dL Neutrophils # (1.3-7.7) k/uL Lymphocytes # (1.0-4.8) k/uL PT (9.0-12.0) sec INR (<1.2) ABG pH 7.32 L (7.35-7.45) ABG pCO2 47 H (35-45) mmHg ABG pO2 76 L (83-108) mmHg ABG HCO3 (21-25) mmol/L ABG Total CO2 26 H (19-24) mmol/L ABG O2 Saturation (94-97) % Chloride (98-107) mmol/L Creatinine (0.52-1.04) mg/dL Glucose (74-99) mg/dL POC Glucose (mg/dL) 206 H (75-99) mg/dL Calcium (8.4-10.2) mg/dL Magnesium (1.6-2.3) mg/dL Urine Protein Trace H (Negative) Urine Blood Large H (Negative) Ur Leukocyte Esterase Moderate H (Negative) Urine RBC >182 H (0-5) /hpf Urine WBC 15 H (0-5) /hpf 10/02/21 10/02/21 Range/Units 07:15 07:15 WBC 13.0 H (3.8-10.6) k/uL MCV 108.2 H (80.0-100.0) fL MCHC 30.0 L (31.0-37.0) g/dL Neutrophils # 11.9 H (1.3-7.7) k/uL Lymphocytes # 0.5 L (1.0-4.8) k/uL PT (9.0-12.0) sec INR (<1.2) ABG pH (7.35-7.45) ABG pCO2 (35-45) mmHg ABG pO2 (83-108) mmHg ABG HCO3 (21-25) mmol/L ABG Total CO2 (19-24) mmol/L ABG O2 Saturation (94-97) % Chloride 109 H (98-107) mmol/L Creatinine 1.07 H (0.52-1.04) mg/dL Glucose 212 H (74-99) mg/dL POC Glucose (mg/dL) (75-99) mg/dL Calcium 6.6 L (8.4-10.2) mg/dL Magnesium 1.1 L (1.6-2.3) mg/dL Urine Protein (Negative) Urine Blood (Negative) Ur Leukocyte Esterase (Negative) Urine RBC (0-5) /hpf Urine WBC (0-5) /hpf Microbiology - Last 24 Hours (Table) 10/02/21 00:37 Urine Culture - Preliminary Urine,Voided Assessment and Plan (1) Colonic mass Current Visit: Yes Status: Acute Priority: High Code(s): K63.89 - OTHER SPECIFIED DISEASES OF INTESTINE SNOMED Code(s): 052875975 Plan: Reviewed op note. Pathology pending. T4 tumor will require adjuvant chemo. o plans for treatment until well healed, 4-6 weeks post op. Will sched f/u.
--- NOTE | 2021-10-02 12:46 | P.PN ---
Subjective Progress Note Date: 10/02/21 underwent left ureteroureterostomy and a repair of a cystotomy yesterday. Urine is blood-tinged. Output from LUZMA serosanguineous Objective - Vital Signs Vital signs: Vital Signs Temp 98 F 10/02/21 08:00 Pulse 91 10/02/21 11:00 Resp 14 10/02/21 11:00 BP 102/48 10/02/21 11:00 Pulse Ox 97 10/02/21 11:00 Intake & Output 10/01/21 10/02/21 10/02/21 18:59 06:59 18:59 Intake Total 1999 4157.109 1010.442 Output Total 850 470 Balance 1999 3307.109 540.442 Intake: IV 2000 4075 950 D5-0.45% NaCl with KCl 875 750 20Meq/l 1,000 ml @ 125 mls/hr IV .Q8H [facility] Rx#: [id number] Magnesium Sulfate-D5w Pmx 200 1 gm In Dextrose/Water 1 100ml.bag @ 100 mls/hr IVPB Q1H [facility] Rx#: [id number] Piperacillin-Tazobactam 3 100 .375 gm In Sodium Chloride 0.9% 100 ml @ 25 mls/hr IVPB Q8H [facility] Rx#: [id number] Sodium Chloride 0.9% 1, 2500 000 ml @ 999 mls/hr IV . Q1H1M [facility] Rx#:[id number] metroNIDAZOLE-NS PMX 500 100 mg In Saline 1 100ml.bag @ 100 mls/hr IVPB Q8H [facility] Rx#:[id number] Intake, IV Titration 82.109 60.442 Amount propofoL 1,000 mg In 82.109 60.442 Empty Bag 1 bag @ 5 MCG/ KG/MIN 1.722 mls/hr IV . Q24H [facility] Rx#:[id number] Output: Gastric Drainage 50 Drainage 240 175 Right Abdomen 240 175 Urine 410 245 Estimated Blood Loss 200 Other: Voiding Method External Catheter Indwelling Catheter Indwelling Catheter # Voids 2 - Constitutional General appearance: Present: no acute distress - Respiratory Details: intubated - Gastrointestinal General gastrointestinal: Present: soft. Absent: distended, tenderness - Genitourinary Genitourinary Comment(s): LUZMA serosanguineous, Mcfarland blood tinged - Labs CBC & Chem 7: 10/02/21 07:15 10/02/21 07:15 Labs: Abnormal Lab Results - Last 24 Hours (Table) 10/01/21 10/01/21 10/01/21 Range/Units 16:02 22:45 22:50 WBC (3.8-10.6) k/uL MCV (80.0-100.0) fL MCHC (31.0-37.0) g/dL Neutrophils # (1.3-7.7) k/uL Lymphocytes # (1.0-4.8) k/uL PT 14.4 H (9.0-12.0) sec INR 1.4 H (<1.2) ABG pH 7.31 L (7.35-7.45) ABG pCO2 52 H (35-45) mmHg ABG pO2 >400 H (83-108) mmHg ABG HCO3 26 H (21-25) mmol/L ABG Total CO2 28 H (19-24) mmol/L ABG O2 Saturation 98.9 H (94-97) % Chloride (98-107) mmol/L Creatinine (0.52-1.04) mg/dL Glucose (74-99) mg/dL POC Glucose (mg/dL) 143 H (75-99) mg/dL Calcium (8.4-10.2) mg/dL Magnesium (1.6-2.3) mg/dL Urine Protein (Negative) Urine Blood (Negative) Ur Leukocyte Esterase (Negative) Urine RBC (0-5) /hpf Urine WBC (0-5) /hpf 10/02/21 10/02/21 10/02/21 Range/Units 00:37 05:54 06:19 WBC (3.8-10.6) k/uL MCV (80.0-100.0) fL MCHC (31.0-37.0) g/dL Neutrophils # (1.3-7.7) k/uL Lymphocytes # (1.0-4.8) k/uL PT (9.0-12.0) sec INR (<1.2) ABG pH 7.32 L (7.35-7.45) ABG pCO2 47 H (35-45) mmHg ABG pO2 76 L (83-108) mmHg ABG HCO3 (21-25) mmol/L ABG Total CO2 26 H (19-24) mmol/L ABG O2 Saturation (94-97) % Chloride (98-107) mmol/L Creatinine (0.52-1.04) mg/dL Glucose (74-99) mg/dL POC Glucose (mg/dL) 206 H (75-99) mg/dL Calcium (8.4-10.2) mg/dL Magnesium (1.6-2.3) mg/dL Urine Protein Trace H (Negative) Urine Blood Large H (Negative) Ur Leukocyte Esterase Moderate H (Negative) Urine RBC >182 H (0-5) /hpf Urine WBC 15 H (0-5) /hpf 10/02/21 10/02/21 Range/Units 07:15 07:15 WBC 13.0 H (3.8-10.6) k/uL MCV 108.2 H (80.0-100.0) fL MCHC 30.0 L (31.0-37.0) g/dL Neutrophils # 11.9 H (1.3-7.7) k/uL Lymphocytes # 0.5 L (1.0-4.8) k/uL PT (9.0-12.0) sec INR (<1.2) ABG pH (7.35-7.45) ABG pCO2 (35-45) mmHg ABG pO2 (83-108) mmHg ABG HCO3 (21-25) mmol/L ABG Total CO2 (19-24) mmol/L ABG O2 Saturation (94-97) % Chloride 109 H (98-107) mmol/L Creatinine 1.07 H (0.52-1.04) mg/dL Glucose 212 H (74-99) mg/dL POC Glucose (mg/dL) (75-99) mg/dL Calcium 6.6 L (8.4-10.2) mg/dL Magnesium 1.1 L (1.6-2.3) mg/dL Urine Protein (Negative) Urine Blood (Negative) Ur Leukocyte Esterase (Negative) Urine RBC (0-5) /hpf Urine WBC (0-5) /hpf Microbiology - Last 24 Hours (Table) 10/02/21 00:37 Urine Culture - Preliminary Urine,Voided
--- NOTE | 2021-10-02 13:07 | P.PN ---
Subjective Progress Note Date: 10/02/21 CHIEF COMPLAINT: Sigmoid colon tumor HISTORY OF PRESENT ILLNESS: Postoperative day #1 status post exploratory laparotomy, sigmoid colectomy with end colostomy, partial cystectomy, left salpingectomy, appendectomy and repair of left ureter. Patient is currently in the ICU. She was extubated this morning. Her ostomy is functioning. NG tube with minimal bile output. LUZMA drain with 190 mL of serosanguineous output. Mcfarland catheter with evidence of hematuria. Afebrile. WBC is 13 hemoglobin 12.3 platelet 189 creatinine 1.07 blood sugar 206 magnesium is 1.1 Patient seen and examined with Dr. sams PHYSICAL EXAM: VITAL SIGNS: Reviewed. GENERAL: Well-developed in no acute distress. HEENT: No sclera icterus. Extraocular movements grossly intact. Moist buccal mucosa. Head is atraumatic, normocephalic. ABDOMEN: Soft. Distended. Mild tenderness with palpation. Ostomy functioning. Stoma beefy red NEUROLOGIC: Alert and oriented. Cranial nerves II through XII grossly intact. ASSESSMENT: 1. 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 Hypomagnesemia PLAN: -Continue ICU management -Continue supportive care -Discontinue NG tube -Keep patient nothing by mouth except for ice chips, popsicles, meds -Continue IV fluids -keep Eliquis on hold -Magnesium being replaced -DVT prophylaxis subcu heparin and GI prophylaxis Pepcid Physician Infant Room Teacher note has been reviewed by physician. Signing provider agrees with the documented findings, assessment, and plan of care. Objective - Vital Signs Vital signs: Vital Signs Temp 98 F 10/02/21 08:00 Pulse 91 10/02/21 11:00 Resp 14 10/02/21 11:00 BP 102/48 10/02/21 11:00 Pulse Ox 97 10/02/21 11:00 Intake & Output 10/01/21 10/02/21 10/02/21 18:59 06:59 18:59 Intake Total 1999 4157.109 1010.442 Output Total 850 470 Balance 1999 3307.109 540.442 Intake: IV 1999 4075 950 D5-0.45% NaCl with KCl 875 750 20Meq/l 1,000 ml @ 125 mls/hr IV .Q8H [facility] Rx#: [id number] Magnesium Sulfate-D5w Pmx 200 1 gm In Dextrose/Water 1 100ml.bag @ 100 mls/hr IVPB Q1H [facility] Rx#: [id number] Piperacillin-Tazobactam 3 100 .375 gm In Sodium Chloride 0.9% 100 ml @ 25 mls/hr IVPB Q8H [facility] Rx#: [id number] Sodium Chloride 0.9% 1, 2500 000 ml @ 999 mls/hr IV . Q1H1M [facility] Rx#:[id number] metroNIDAZOLE-NS PMX 500 100 mg In Saline 1 100ml.bag @ 100 mls/hr IVPB Q8H [facility] Rx#:[id number] Intake, IV Titration 82.109 60.442 Amount propofoL 1,000 mg In 82.109 60.442 Empty Bag 1 bag @ 5 MCG/ KG/MIN 1.722 mls/hr IV . Q24H [facility] Rx#:[id number] Output: Gastric Drainage 50 Drainage 240 175 Right Abdomen 240 175 Urine 410 245 Estimated Blood Loss 200 Other: Voiding Method External Catheter Indwelling Catheter Indwelling Catheter # Voids 2 - Labs CBC & Chem 7: 10/02/21 07:15 10/02/21 07:15 Labs: Abnormal Lab Results - Last 24 Hours (Table) 10/01/21 10/01/21 10/01/21 Range/Units 16:02 22:45 22:50 WBC (3.8-10.6) k/uL MCV (80.0-100.0) fL MCHC (31.0-37.0) g/dL Neutrophils # (1.3-7.7) k/uL Lymphocytes # (1.0-4.8) k/uL PT 14.4 H (9.0-12.0) sec INR 1.4 H (<1.2) ABG pH 7.31 L (7.35-7.45) ABG pCO2 52 H (35-45) mmHg ABG pO2 >400 H (83-108) mmHg ABG HCO3 26 H (21-25) mmol/L ABG Total CO2 28 H (19-24) mmol/L ABG O2 Saturation 98.9 H (94-97) % Chloride (98-107) mmol/L Creatinine (0.52-1.04) mg/dL Glucose (74-99) mg/dL POC Glucose (mg/dL) 143 H (75-99) mg/dL Calcium (8.4-10.2) mg/dL Magnesium (1.6-2.3) mg/dL Urine Protein (Negative) Urine Blood (Negative) Ur Leukocyte Esterase (Negative) Urine RBC (0-5) /hpf Urine WBC (0-5) /hpf 10/02/21 10/02/21 10/02/21 Range/Units 00:37 05:54 06:19 WBC (3.8-10.6) k/uL MCV (80.0-100.0) fL MCHC (31.0-37.0) g/dL Neutrophils # (1.3-7.7) k/uL Lymphocytes # (1.0-4.8) k/uL PT (9.0-12.0) sec INR (<1.2) ABG pH 7.32 L (7.35-7.45) ABG pCO2 47 H (35-45) mmHg ABG pO2 76 L (83-108) mmHg ABG HCO3 (21-25) mmol/L ABG Total CO2 26 H (19-24) mmol/L ABG O2 Saturation (94-97) % Chloride (98-107) mmol/L Creatinine (0.52-1.04) mg/dL Glucose (74-99) mg/dL POC Glucose (mg/dL) 206 H (75-99) mg/dL Calcium (8.4-10.2) mg/dL Magnesium (1.6-2.3) mg/dL Urine Protein Trace H (Negative) Urine Blood Large H (Negative) Ur Leukocyte Esterase Moderate H (Negative) Urine RBC >182 H (0-5) /hpf Urine WBC 15 H (0-5) /hpf 10/02/21 10/02/21 Range/Units 07:15 07:15 WBC 13.0 H (3.8-10.6) k/uL MCV 108.2 H (80.0-100.0) fL MCHC 30.0 L (31.0-37.0) g/dL Neutrophils # 11.9 H (1.3-7.7) k/uL Lymphocytes # 0.5 L (1.0-4.8) k/uL PT (9.0-12.0) sec INR (<1.2) ABG pH (7.35-7.45) ABG pCO2 (35-45) mmHg ABG pO2 (83-108) mmHg ABG HCO3 (21-25) mmol/L ABG Total CO2 (19-24) mmol/L ABG O2 Saturation (94-97) % Chloride 109 H (98-107) mmol/L Creatinine 1.07 H (0.52-1.04) mg/dL Glucose 212 H (74-99) mg/dL POC Glucose (mg/dL) (75-99) mg/dL Calcium 6.6 L (8.4-10.2) mg/dL Magnesium 1.1 L (1.6-2.3) mg/dL Urine Protein (Negative) Urine Blood (Negative) Ur Leukocyte Esterase (Negative) Urine RBC (0-5) /hpf Urine WBC (0-5) /hpf Microbiology - Last 24 Hours (Table) 10/02/21 00:37 Urine Culture - Preliminary Urine,Voided
[2021-10-02 14:18] LABS: Glucose,Whole Blood 224 mg/dL (75-99)
[2021-10-02 17:05] LABS: Glucose,Whole Blood 145 mg/dL (75-99)
--- NOTE | 2021-10-02 20:46 | P.PN ---
Subjective 66-year-old female presents to the emergency department with a chief complaint of abdominal pain. Patient states her symptoms started 10 days ago. Describes it as generalized abdominal pain with no radiation. No back pain. She states she had intermittent nausea for the first couple days that has since resolved. No fever, chills, vomiting, or diarrhea. Normal bowel movements with last bowel movement yesterday, nonbloody. Patient has been tolerating oral intake okay however states her appetite has decreased. No burning with urination, increased urinary frequency/urgency, or blood in the urine. No chest pain or shortness of breath. Patient does have history of atrial fibrillation on Eliquis. No upper respiratory symptoms or recent sick contacts. No previous abdominal surgeries. Patient does admit to tobacco use with [id number]-wept history. She denies family history of aneurysm. CT is significant for a suspected partial large bowel obstruction secondary to eccentric bowel wall thickening of the sigmoid colon which is suspicious for primary malignancy. EKG revealed atrial fibrillation with rapid ventricular response; patient was started on IV Cardizem Patient continues to have abdominal distention and pain; no bowel movements; general surgery on board and planning to repeat abdominal x-ray with tentative plan for partial colectomy tomorrow Patient remains in atrial fibrillation with controlled ventricular response at this time; no anticoagulation therapy for anticipated surgery in next 24-48 h ours; echocardiogram reveals normal LV function and no significant valvular abnormalities; cardiology on board and recommending to continue with Lasix 20 mg daily for mild fluid overload; Resume the care of the patient 10/01/2021. Patient awake and alert. She still with abdominal complaint and pain and discomfort with no bowel movement. Surgery team are planning for exploratory laparotomy with possible diverting colostomy and possible sigmoid resection. Claims Counsel team on the case also for preop evaluation and also for her A. fib. Currently rate controlled on metoprolol and oral Lasix. She is on D5 half-normal saline at 50 mL per hour, Flagyl and Zosyn. Labs look stable. 10/02/2021 with sigmoid mass status post exploratory laparotomy with Sigmoid colectomy with end colostomy, Partial cystectomy, Left salpingectomy, Appendectomy, Repair of left ureterPeriod secondary to left ureteral injury during surgical resection. Patient vomited by urologist and had left ureteral repair. Currently has a Mcfarland catheter was recommendation to stay for 2 weeks. Post operatively patient got intubated. Patient currently remains on mechanical ventilation She remains on Zosyn, Eliquis on hold. Patient is started on Pepcid and subcu heparin.. She received also normal saline boluses Objective - Vital Signs Vital signs: Vital Signs Temp 98 F 10/02/21 08:00 Pulse 91 10/02/21 11:00 Resp 14 10/02/21 11:00 BP 102/48 10/02/21 11:00 Pulse Ox 97 10/02/21 11:00 Intake & Output 10/01/21 10/02/21 10/02/21 18:59 06:59 18:59 Intake Total 1999 4157.109 1010.442 Output Total 850 470 Balance 1999 3307.109 540.442 Intake: IV 2000 4075 950 D5-0.45% NaCl with KCl 875 750 20Meq/l 1,000 ml @ 125 mls/hr IV .Q8H [facility] Rx#: [id number] Magnesium Sulfate-D5w Pmx 200 1 gm In Dextrose/Water 1 100ml.bag @ 100 mls/hr IVPB Q1H [facility] Rx#: [id number] Piperacillin-Tazobactam 3 100 .375 gm In Sodium Chloride 0.9% 100 ml @ 25 mls/hr IVPB Q8H [facility] Rx#: [id number] Sodium Chloride 0.9% 1, 2500 000 ml @ 999 mls/hr IV . Q1H1M [facility] Rx#:[id number] metroNIDAZOLE-NS PMX 500 100 mg In Saline 1 100ml.bag @ 100 mls/hr IVPB Q8H [facility] Rx#:[id number] Intake, IV Titration 82.109 60.442 Amount propofoL 1,000 mg In 82.109 60.442 Empty Bag 1 bag @ 5 MCG/ KG/MIN 1.722 mls/hr IV . Q24H [facility] Rx#:[id number] Output: Gastric Drainage 50 Drainage 240 175 Right Abdomen 240 175 Urine 410 245 Estimated Blood Loss 200 Other: Voiding Method External Catheter Indwelling Catheter Indwelling Catheter # Voids 2 - Exam GENERAL: The patient is alert and oriented x3, not in any acute distress. Well developed, well nourished. HEENT: Pupils are round and equally reacting to light. EOMI. No scleral icterus. No conjunctival pallor. Normocephalic, atraumatic. No pharyngeal erythema. No thyromegaly. CARDIOVASCULAR: S1 and S2 present. No murmurs, rubs, or gallops. PULMONARY: Chest is clear to auscultation, no wheezing or crackles. -ABDOMEN: Soft, mild generalized tenderness and mild generalized distention, normoactive bowel sounds. No palpable organomegaly. MUSCULOSKELETAL: No joint swelling or deformity. EXTREMITIES: No cyanosis, clubbing, or pedal edema. NEUROLOGICAL: Gross neurological examination did not reveal any focal deficits. SKIN: No rashes. no petechiae. - Labs CBC & Chem 7: 10/02/21 07:15 10/02/21 07:15 Labs: Abnormal Lab Results - Last 24 Hours (Table) 10/01/21 10/01/21 10/01/21 Range/Units 16:02 22:45 22:50 WBC (3.8-10.6) k/uL MCV (80.0-100.0) fL MCHC (31.0-37.0) g/dL Neutrophils # (1.3-7.7) k/uL Lymphocytes # (1.0-4.8) k/uL PT 14.4 H (9.0-12.0) sec INR 1.4 H (<1.2) ABG pH 7.31 L (7.35-7.45) ABG pCO2 52 H (35-45) mmHg ABG pO2 >400 H (83-108) mmHg ABG HCO3 26 H (21-25) mmol/L ABG Total CO2 28 H (19-24) mmol/L ABG O2 Saturation 98.9 H (94-97) % Chloride (98-107) mmol/L Creatinine (0.52-1.04) mg/dL Glucose (74-99) mg/dL POC Glucose (mg/dL) 143 H (75-99) mg/dL Calcium (8.4-10.2) mg/dL Magnesium (1.6-2.3) mg/dL Urine Protein (Negative) Urine Blood (Negative) Ur Leukocyte Esterase (Negative) Urine RBC (0-5) /hpf Urine WBC (0-5) /hpf 10/02/21 10/02/21 10/02/21 Range/Units 00:37 05:54 06:19 WBC (3.8-10.6) k/uL MCV (80.0-100.0) fL MCHC (31.0-37.0) g/dL Neutrophils # (1.3-7.7) k/uL Lymphocytes # (1.0-4.8) k/uL PT (9.0-12.0) sec INR (<1.2) ABG pH 7.32 L (7.35-7.45) ABG pCO2 47 H (35-45) mmHg ABG pO2 76 L (83-108) mmHg ABG HCO3 (21-25) mmol/L ABG Total CO2 26 H (19-24) mmol/L ABG O2 Saturation (94-97) % Chloride (98-107) mmol/L Creatinine (0.52-1.04) mg/dL Glucose (74-99) mg/dL POC Glucose (mg/dL) 206 H (75-99) mg/dL Calcium (8.4-10.2) mg/dL Magnesium (1.6-2.3) mg/dL Urine Protein Trace H (Negative) Urine Blood Large H (Negative) Ur Leukocyte Esterase Moderate H (Negative) Urine RBC >182 H (0-5) /hpf Urine WBC 15 H (0-5) /hpf 10/02/21 10/02/21 Range/Units 07:15 07:15 WBC 13.0 H (3.8-10.6) k/uL MCV 108.2 H (80.0-100.0) fL MCHC 30.0 L (31.0-37.0) g/dL Neutrophils # 11.9 H (1.3-7.7) k/uL Lymphocytes # 0.5 L (1.0-4.8) k/uL PT (9.0-12.0) sec INR (<1.2) ABG pH (7.35-7.45) ABG pCO2 (35-45) mmHg ABG pO2 (83-108) mmHg ABG HCO3 (21-25) mmol/L ABG Total CO2 (19-24) mmol/L ABG O2 Saturation (94-97) % Chloride 109 H (98-107) mmol/L Creatinine 1.07 H (0.52-1.04) mg/dL Glucose 212 H (74-99) mg/dL POC Glucose (mg/dL) (75-99) mg/dL Calcium 6.6 L (8.4-10.2) mg/dL Magnesium 1.1 L (1.6-2.3) mg/dL Urine Protein (Negative) Urine Blood (Negative) Ur Leukocyte Esterase (Negative) Urine RBC (0-5) /hpf Urine WBC (0-5) /hpf Microbiology - Last 24 Hours (Table) 10/02/21 00:37 Urine Culture - Preliminary Urine,Voided Assessment and Plan Assessment: -Sigmoid wall thickening suspicious for sigmoid months with partial colon obstruction. status post exploratory laparotomy with Sigmoid colectomy with end colostomy, Partial cystectomy, Left salpingectomy, Appendectomy, Repair of left ureterPeriod secondary to left ureteral injury during surgical resection -A. fib and RVR. -Hypertension -Hyperlipidemia -History of COPD, not in activation Plan: this is a pleasant 66 years old female. Going for bowel surgery for her possible colon mass. Also with A. fib. Continue with Surgery team on the case. Continue with Flagyl and Zosyn and gentle hydration. Her surgery team Pulmonary team. Patient status post extubation Cardiology team on the case, continue with metoprolol. Labs and medication were reviewed.. Continue same treatment. Continue with symptomatic treatment. Resume home medication. Monitor lytes and vitals. DVT and GI prophylaxis. Further recommendations as per clinical course of the patient DVT prophylaxis: Subcu heparin. Amanda is on hold GI Prophylaxis: Pepcid PT/OT: Deferred Prognosis is guarded
[2021-10-02] MEDS: ATORVASTATIN 40 MG TAB PO SCH (21:14)
[2021-10-02 21:18] LABS: Glucose,Whole Blood 86 mg/dL (75-99)
[2021-10-03 00:12] LABS: Glucose,Whole Blood 101 mg/dL (75-99)
[2021-10-03] MEDS: D5-0.45% NACL WITH KCL 20MEQ/L 1,000 ML IV SCH ×3 (00:52→17:30)
[2021-10-03] MEDS: HEPARIN SODIUM,PORCINE/PF 5,000 UNIT/0.5 ML SYRINGE SQ SCH ×3 (00:52→17:12)
[2021-10-03] MEDS: NOREPINEPHRINE 4 MG in SODIUM CHLORIDE 0.9% 250 ML IV SCH (01:35)
[2021-10-03] MEDS: HYDROmorphone 1 MG/ML 1 ML SYRINGE IVP PRN (03:59)
[2021-10-03] MEDS: metroNIDAZOLE-NS PMX 500 MG in SALINE 1 100ML.BAG IVPB SCH ×3 (04:16→19:57)
[2021-10-03] MEDS: PIPERACILLIN-TAZOBACTAM 3.375 GM in SODIUM CHLORIDE 0.9% 100 ML IVPB SCH ×3 (05:51→21:23)
[2021-10-03 06:10] LABS: Glucose,Whole Blood 116 mg/dL (75-99)
[2021-10-03] MEDS: INSULIN ASPART (NovoLOG) 100 UNIT/ML VIAL SQ SCH ×4 (06:53→19:52)
[2021-10-03 07:39] LABS: Albumin 1.8 g/dL (3.5-5.0); Calcium 7.2 mg/dL (8.4-10.2); Potassium 4.5 mmol/L (3.5-5.1); Total Bilirubin 0.5 mg/dL (0.2-1.3)
[2021-10-03 08:10] LABS: HCT 36.8 % (34.0-46.0); HGB 11.1 gm/dL (11.4-16.0); Hypochromasia Marked; MCH 33.2 pg (25.0-35.0); MCHC 30.2 g/dL (31.0-37.0); MCV 110.1 fL (80.0-100.0); Macrocytosis Marked; Platelet Count 193 k/uL (150-450); RBC 3.34 m/uL (3.80-5.40); RDW 13.5 % (11.5-15.5); WBC 10.1 k/uL (3.8-10.6)
[2021-10-03] MEDS ORDERED: SODIUM CHLORIDE 0.9% 500 ML 500 ML IV ONE ×2 (08:15→08:41)
[2021-10-03] MEDS: FAMOTIDINE 20 MG/2 ML VIAL IV SCH (08:33)
[2021-10-03] MEDS: KETOROLAC 15 MG/ML 1 ML VIAL IVP PRN (08:47)
--- NOTE | 2021-10-03 08:47 | XR ---
EXAMINATION TYPE: XR chest 1V portable DATE OF EXAM: 10/03/2021 HISTORY: Shortness of breath. COMPARISON: 10/02/21 TECHNIQUE: Single view of the chest is submitted. FINDINGS: Demonstrated are scattered senescent parenchymal change. Right basilar atelectasis, effusion and/or infiltrate. The heart is stable. Hilar and mediastinal structures are within normal limits. Degenerative changes are seen of the dorsal spine. IMPRESSION: 1. Right basilar atelectasis, effusion and/or infiltrate.
[2021-10-03] MEDS: LACTATED RINGERS 1,000 ML IV SCH ×4 (08:53→13:59)
--- NOTE | 2021-10-03 09:00 | P.PN ---
Subjective Progress Note Date: 10/03/21 Principal diagnosis: Abdominal pain This is a 66-year-old female patient with past a history of smoking, COPD, hypertension, hyperlipidemia, chronic A. fib, coronary artery disease, who presented to the emergency department on 09/28/2021 with chief complaint of abdominal pain which had been ongoing for 10 days prior to presentation. Patient was also complaining of intermittent nausea, but no fever, no chills, no vomiting or diarrhea. Denied any blood in the stools. CT of abdomen and pelvis with contrast in the emergency department showed partial large bowel obstruction secondary to extensive bowel wall thickening of the sigmoid colon that was suspicious for primary malignancy. There was a string dilation of the colon and small bowel, there was mild cardiomegaly and hepatic steatosis. Patient had a prior colonoscopy 3 years ago. Admission labs showed normal white count of 4.6, hemoglobin was 16.2, INR was 1.2, electrolytes and renal profile were unremarkable, troponin was negative at less than 0.012, proBNP was 4290, lipase was within normal limits at 75, LFTs were within normal limits, urinalysis showed 1+ ketones, rare bacteria, negative glucose, no clear evidence of infection. Patient recently had a heart catheterization in August 2021 which showed total occlusion of the RCA with intermediate disease involving the left coronary system, and preserved left ventricular systolic function. Patient was started on IV fluids, and antibiotics and surgical consultation was obtained. She was taken to surgery on 10/01/2021, by Dr. Carranza and Dr. Luevano and underwent exploratory laparotomy, sigmoid colectomy with end colostomy, partial cystectomy, left salpingectomy, appendectomy, and repair of left ureter. In the recovery room patient was extubated however she needed to be reintubated in the recovery room in view of difficulty breathing, hypoxia, and insufficient respiratory effort. She was admitted to the intensive care unit following a recent intubation. This morning she remains intubated and on mechanical ventilator, with assist control mode of ventilation with a rate of 18, tidal volume is 350, FiO2 of 40%, and PEEP of 5. Today's blood gas shows a pO2 of 76, pCO2 47, and pH of 7.32 this was done and the above-mentioned ventilator s ettings, today's chest x-ray showing mild infiltrate and atelectasis at the right lung base which is improved compared old exam, and there is clearing of the pulmonary congestion. Patient is currently on D5 half-normal saline with 20 of potassium at a rate of 125, and improving and at 25 mics per kilo per minute, she did require 2-1/2 L bolus last night for low urine output. She is not requiring any vasopressor support right now. Today's labs have been reviewed White blood cell count is 13, hemoglobin is 12.3, sodium is 137, potassium is 4.1, chloride is 109, BUN is 14, creatinine is 1.07. Urinalysis was repeated showing large amount of blood, moderate leuks, and 15 of white blood cells, patient is on Zosyn for empiric antibiotic coverage. Her surgical biopsy results are still pending. Abdominal incision is covered with a surgical dressing, clean dry and intact, well approximated, patient has left lower quadrant colostomy with no stool or gas. On 10/03/2021 patient seen in follow-up in the intensive care unit, she was successfully weaned and extubated yesterday on 10/02/2021 on postoperative day #1. Today she is awake and alert, oriented 3, she is on 2 L oxygen and pulse ox is 99%, she is breathing comfortably, follow-up chest x-ray is pending but patient denies any shortness of breath, no cough, she been afebrile through the night, blood pressures have been on the lower side or marginal, she is in atrial fibrillation which is chronic for her, and at times she is slightly tachycardic with a rate in the low 100s BPM. IV fluids are D5 half-normal saline with 20 of potassium at a rate of 125 ML per hour, no nasal pressors. She remains on Zosyn for empiric antibiotic coverage. Abdomen has postoperative tenderness, left lower quadrant colostomy is producing brown stool. Lung sounds are clear, diminished, incentive spirometer effort is 1000 mL today. Urine output through the night has been marginal, in the order of 25-30 ML per hour, blood pressures have been marginal, patient's Lasix was placed on hold, recent echocardiogram showed LV function with EF of 45-50%. Today's labs have been reviewed, white blood cell count is 10.1, hemoglobin is 11.1, platelet count is 193, sodium is 137, potassium is 4.5, chloride is 113, CO2 is 18, BUN is 14, creatinine is 1.14. Patient has been tolerating ice chips, and popsicles, but she has had very poor oral intake and she states she does not feel like taking anything by mouth. No nausea or vomiting. Oral membranes are very dry, no lower extremity edema, lung sounds are clear. Abdominal incision is clean dry and intact, covered with a dressing, LUZMA drain is in place draining serosanguineous output and there has been 595 mL of output from the LUZMA drain over the last 24 hours. Objective - Vital Signs Vital signs: Vital Signs Temp 97.7 F 10/03/21 08:00 Pulse 113 H 10/03/21 08:00 Resp 15 10/03/21 08:00 BP 90/56 10/03/21 08:00 Pulse Ox 99 10/03/21 08:00 Intake & Output 10/02/21 10/03/21 10/03/21 18:59 06:59 18:59 Intake Total 3060.442 1900 250 Output Total 775 555 115 Balance 2285.442 1345 135 Intake: IV 3000 1900 250 D5-0.45% NaCl with KCl 1500 1500 250 20Meq/l 1,000 ml @ 125 mls/hr IV .Q8H [facility] Rx#: [id number] Magnesium Sulfate-D5w Pmx 300 1 gm In Dextrose/Water 1 100ml.bag @ 100 mls/hr IVPB Q1H [facility] Rx#: [id number] Piperacillin-Tazobactam 3 100 200 .375 gm In Sodium Chloride 0.9% 100 ml @ 25 mls/hr IVPB Q8H [facility] Rx#: [id number] Sodium Chloride 0.9% 1, 1000 000 ml @ 999 mls/hr IV . Q1H1M [facility] Rx#:[id number] metroNIDAZOLE-NS PMX 500 100 200 mg In Saline 1 100ml.bag @ 100 mls/hr IVPB Q8H [facility] Rx#:[id number] Intake, IV Titration 60.442 Amount propofoL 1,000 mg In 60.442 Empty Bag 1 bag @ 5 MCG/ KG/MIN 1.722 mls/hr IV . Q24H [facility] Rx#:[id number] Output: Gastric Drainage 50 Drainage 360 235 50 Right Abdomen 360 235 50 Urine 365 250 55 Stool 70 Urine/Stool Mix 10 Other: Voiding Method Indwelling Catheter Indwelling Catheter # Bowel Movements 1 1 - Exam GENERAL EXAM: Awake and alert oriented 3, 66-year-old female, on 2 L of oxygen and the pulse ox of 99%, comfortable in no apparent distress. HEAD: Normocephalic/atraumatic. EYES: Normal reaction of pupils, equal size. Conjunctiva pink, sclera white. NOSE: Clear with pink turbinates. THROAT: No erythema or exudates. NECK: No masses, no JVD, no thyroid enlargement, no adenopathy. CHEST: No chest wall deformity. Symmetrical expansion. LUNGS: Equal air entry with no crackles, wheeze, rhonchi or dullness. CVS: Regular rate and rhythm, normal S1 and S2, no gallops, no murmurs, no rubs ABDOMEN: Soft, nontender. Left lower quadrant colostomy in place producing soft brown stool, Mid abdominal incision below the umbilicus is clean dry and intact, sahil are intact, covered with surgical dressing, LUZMA drain with moderate amount of serosanguineous drainage, compressed and draining No hepatosplenomegaly, normal bowel sounds, no guarding or rigidity. EXTREMITIES: No clubbing, no edema, no cyanosis, 2+ pulses and upper and lower extremities. MUSCULOSKELETAL: Muscle strength and tone normal. SPINE: No scoliosis or deformity SKIN: No rashes CENTRAL NERVOUS SYSTEM: Awake and alert, oriented 3 No focal deficits, tone is normal in all 4 extremities. - Labs CBC & Chem 7: 10/03/21 05:42 10/03/21 05:42 Labs: Abnormal Lab Results - Last 24 Hours (Table) 10/02/21 10/02/21 10/03/21 Range/Units 14:15 17:03 00:10 RBC (3.80-5.40) m/uL Hgb (11.4-16.0) gm/dL MCV (80.0-100.0) fL MCHC (31.0-37.0) g/dL Macrocytosis Chloride (98-107) mmol/L Carbon Dioxide (22-30) mmol/L Creatinine (0.52-1.04) mg/dL Glucose (74-99) mg/dL POC Glucose (mg/dL) 224 H 145 H 101 H (75-99) mg/dL Calcium (8.4-10.2) mg/dL AST (14-36) U/L Total Protein (6.3-8.2) g/dL Albumin (3.5-5.0) g/dL 10/03/21 10/03/21 10/03/21 Range/Units 05:42 05:42 06:08 RBC 3.34 L (3.80-5.40) m/uL Hgb 11.1 L (11.4-16.0) gm/dL MCV 110.1 H (80.0-100.0) fL MCHC 30.2 L (31.0-37.0) g/dL Macrocytosis Marked A Chloride 113 H (98-107) mmol/L Carbon Dioxide 18 L (22-30) mmol/L Creatinine 1.14 H (0.52-1.04) mg/dL Glucose 103 H (74-99) mg/dL POC Glucose (mg/dL) 116 H (75-99) mg/dL Calcium 7.2 L (8.4-10.2) mg/dL AST 40 H (14-36) U/L Total Protein 4.0 L (6.3-8.2) g/dL Albumin 1.8 L (3.5-5.0) g/dL Microbiology - Last 24 Hours (Table) 10/02/21 00:37 Urine Culture - Preliminary Urine,Voided Assessment and Plan Plan: Assessment: #1. Acute hypoxic and hypercapnic respiratory failure following surgical procedure possibly related to procedural sedation and history of COPD, and patient had to be reintubated in the recovery room following exploratory laparotomy, sigmoid colectomy, partial cystectomy, left salpingectomy, appendect naheed and repair of the left ureter on 10/01/2021. Chest x-ray today showing some mild infiltration and atelectasis at the right lung base #2. 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 Abdominal pain related to the above #4. Hypotension, related to hypovolemia, improved with IV fluid boluses #5. History of COPD #6. Former smoker #7. Coronary artery disease #8. Chronic A. fib on Eliquis which is currently on hold #9. Hypertension #10. Hyperlipidemia Plan: Follow-up chest x-ray this morning Oxygenation is stable on 2 L of oxygen No difficulty breathing Patient has been afebrile Continue encouraging deep breathing and coughing Patient continues to have marginal output, and marginal blood pressures Oral mucous membranes are dry, patient appears to be still hypovolemic We'll give the patient additional 1 L bolus of lactated Ringer Monitor urine output Patient will continue on beta blockers, will adjust the dose down to 25 mg twice daily for the metoprolol Anticoagulation per surgical recommendations Patient continues on GI and DVT prophylaxis Continue monitoring in intensive care unit I have personally seen and examined the patient, performed the documentation and the assessment and plan as written. Number of minutes spent on the visit: [15] Time with Patient: Greater than 30
[2021-10-03] MEDS: METOPROLOL TARTRATE 25 MG TAB PO SCH ×2 (09:36→19:57)
[2021-10-03 10:29] LABS: Band Neutrophils % 2 %; Lymphocytes # (M) 0.71 k/uL (1.0-4.8); Myelocytes % 1 %; Neutrophils % (M) 89 %; Nucleated Red Blood Cells 0 /100 WBC (0-0); Total Cells Counted 200
[2021-10-03 10:57] LABS: Crenated RBC Present
--- NOTE | 2021-10-03 11:00 | P.PN ---
Subjective Patient being managed for A. fib with RVR She has multiple other medical problems She was on metoprolol 50 g twice daily The dose of this was reduced to 25 mg twice daily on account of her low blood pressure and poor urine output She is already on digoxin Creatinine is 1.14 Blood pressure ranges from 91 203 mmHg Suggest Consider increasing metoprolol to 25 mg 3 times a day But if her blood pressure cannot tolerate this then The other option is to use amiodarone for rate control If amiodarone was begun, after 4 weeks digoxin may be discontinued Objective - Vital Signs Vital signs: Vital Signs Temp 97.7 F 10/03/21 08:00 Pulse 96 10/03/21 10:00 Resp 19 10/03/21 10:00 BP 99/60 10/03/21 10:00 Pulse Ox 94 L 10/03/21 10:00 Intake & Output 10/02/21 10/03/21 10/03/21 18:59 06:59 18:59 Intake Total 3060.442 1900 2000 Output Total 775 555 295 Balance 2285.442 1345 1705 Intake: IV 3000 1900 2000 D5-0.45% NaCl with KCl 1500 1500 375 20Meq/l 1,000 ml @ 125 mls/hr IV .Q8H [facility] Rx#: [id number] Lactated Ringers 1,000 ml 1000 @ 999 mls/hr IV .Q1H1M [facility] Rx#:[id number] Magnesium Sulfate-D5w Pmx 300 1 gm In Dextrose/Water 1 100ml.bag @ 100 mls/hr IVPB Q1H [facility] Rx#: [id number] Piperacillin-Tazobactam 3 100 200 .375 gm In Sodium Chloride 0.9% 100 ml @ 25 mls/hr IVPB Q8H [facility] Rx#: [id number] Sodium Chloride 0.9% 1, 1000 000 ml @ 999 mls/hr IV . Q1H1M [facility] Rx#:[id number] Sodium Chloride 0.9% 500 625 ml 500 ml @ 999 mls/hr IV .Q31M [facility] Rx#:[id number] metroNIDAZOLE-NS PMX 500 100 200 mg In Saline 1 100ml.bag @ 100 mls/hr IVPB Q8H [facility] Rx#:[id number] Intake, IV Titration 60.442 Amount propofoL 1,000 mg In 60.442 Empty Bag 1 bag @ 5 MCG/ KG/MIN 1.722 mls/hr IV . Q24H [facility] Rx#:[id number] Output: Gastric Drainage 50 Drainage 360 235 160 Right Abdomen 360 235 160 Urine 365 250 125 Stool 70 Urine/Stool Mix 10 Other: Voiding Method Indwelling Catheter Indwelling Catheter # Bowel Movements 1 1 - Labs CBC & Chem 7: 10/03/21 05:42 10/03/21 05:42 Labs: Abnormal Lab Results - Last 24 Hours (Table) 10/02/21 10/02/21 10/03/21 Range/Units 14:15 17:03 00:10 RBC (3.80-5.40) m/uL Hgb (11.4-16.0) gm/dL MCV (80.0-100.0) fL MCHC (31.0-37.0) g/dL Neutrophils # (Manual) (1.3-7.7) k/uL Lymphocytes # (Manual) (1.0-4.8) k/uL Myelocytes # (Manual) (0) k/uL Macrocytosis Chloride (98-107) mmol/L Carbon Dioxide (22-30) mmol/L Creatinine (0.52-1.04) mg/dL Glucose (74-99) mg/dL POC Glucose (mg/dL) 224 H 145 H 101 H (75-99) mg/dL Calcium (8.4-10.2) mg/dL AST (14-36) U/L Total Protein (6.3-8.2) g/dL Albumin (3.5-5.0) g/dL 10/03/21 10/03/21 10/03/21 Range/Units 05:42 05:42 06:08 RBC 3.34 L (3.80-5.40) m/uL Hgb 11.1 L (11.4-16.0) gm/dL MCV 110.1 H (80.0-100.0) fL MCHC 30.2 L (31.0-37.0) g/dL Neutrophils # (Manual) 9.10 H (1.3-7.7) k/uL Lymphocytes # (Manual) 0.71 L (1.0-4.8) k/uL Myelocytes # (Manual) 0.10 H (0) k/uL Macrocytosis Marked A Chloride 113 H (98-107) mmol/L Carbon Dioxide 18 L (22-30) mmol/L Creatinine 1.14 H (0.52-1.04) mg/dL Glucose 103 H (74-99) mg/dL POC Glucose (mg/dL) 116 H (75-99) mg/dL Calcium 7.2 L (8.4-10.2) mg/dL AST 40 H (14-36) U/L Total Protein 4.0 L (6.3-8.2) g/dL Albumin 1.8 L (3.5-5.0) g/dL Microbiology - Last 24 Hours (Table) 10/02/21 00:37 Urine Culture - Preliminary Urine,Voided
[2021-10-03 11:25] LABS: Glucose,Whole Blood 122 mg/dL (75-99)
--- NOTE | 2021-10-03 11:25 | P.PN ---
Subjective Progress Note Date: 10/03/21 Principal diagnosis: sigmoid mass Pt is doing well s/p surgery, no acute c/o. Objective - Vital Signs Vital signs: Vital Signs Temp 97.7 F 10/03/21 08:00 Pulse 96 10/03/21 10:00 Resp 19 10/03/21 10:00 BP 99/60 10/03/21 10:00 Pulse Ox 94 L 10/03/21 10:00 Intake & Output 10/02/21 10/03/21 10/03/21 18:59 06:59 18:59 Intake Total 3060.442 1900 2000 Output Total 775 555 295 Balance 2285.442 1345 1705 Weight 57.4 kg Intake: IV 3000 1900 2000 D5-0.45% NaCl with KCl 1500 1500 375 20Meq/l 1,000 ml @ 125 mls/hr IV .Q8H [facility] Rx#: [id number] Lactated Ringers 1,000 ml 1000 @ 999 mls/hr IV .Q1H1M [facility] Rx#:[id number] Magnesium Sulfate-D5w Pmx 300 1 gm In Dextrose/Water 1 100ml.bag @ 100 mls/hr IVPB Q1H [facility] Rx#: [id number] Piperacillin-Tazobactam 3 100 200 .375 gm In Sodium Chloride 0.9% 100 ml @ 25 mls/hr IVPB Q8H [facility] Rx#: [id number] Sodium Chloride 0.9% 1, 1000 000 ml @ 999 mls/hr IV . Q1H1M [facility] Rx#:[id number] Sodium Chloride 0.9% 500 625 ml 500 ml @ 999 mls/hr IV .Q31M [facility] Rx#:[id number] metroNIDAZOLE-NS PMX 500 100 200 mg In Saline 1 100ml.bag @ 100 mls/hr IVPB Q8H [facility] Rx#:[id number] Intake, IV Titration 60.442 Amount propofoL 1,000 mg In 60.442 Empty Bag 1 bag @ 5 MCG/ KG/MIN 1.722 mls/hr IV . Q24H [facility] Rx#:[id number] Output: Gastric Drainage 50 Drainage 360 235 160 Right Abdomen 360 235 160 Urine 365 250 125 Stool 70 Urine/Stool Mix 10 Other: Voiding Method Indwelling Catheter Indwelling Catheter # Bowel Movements 1 1 - Constitutional General appearance: Present: average body habitus, cooperative, no acute distress - EENT Eyes: Present: anicteric sclerae, EOMI ENT: Present: hearing grossly normal - Respiratory Respiratory: bilateral: CTA - Cardiovascular Rhythm: regular Heart sounds: normal: S1, S2 Abnormal Heart Sounds: Absent: systolic murmur, diastolic murmur, rub, S3 Gallop, S4 Gallop, click, other - Gastrointestinal General gastrointestinal: Present: decreased bowel sounds, soft - Neurologic Neurologic: Present: CNII-XII intact - Psychiatric Psychiatric: Present: A&O x's 3, appropriate affect, intact judgment & insight - Labs CBC & Chem 7: 10/03/21 05:42 10/03/21 05:42 Labs: Abnormal Lab Results - Last 24 Hours (Table) 10/02/21 10/02/21 10/03/21 Range/Units 14:15 17:03 00:10 RBC (3.80-5.40) m/uL Hgb (11.4-16.0) gm/dL MCV (80.0-100.0) fL MCHC (31.0-37.0) g/dL Neutrophils # (Manual) (1.3-7.7) k/uL Lymphocytes # (Manual) (1.0-4.8) k/uL Myelocytes # (Manual) (0) k/uL Macrocytosis Chloride (98-107) mmol/L Carbon Dioxide (22-30) mmol/L Creatinine (0.52-1.04) mg/dL Glucose (74-99) mg/dL POC Glucose (mg/dL) 224 H 145 H 101 H (75-99) mg/dL Calcium (8.4-10.2) mg/dL AST (14-36) U/L Total Protein (6.3-8.2) g/dL Albumin (3.5-5.0) g/dL 10/03/21 10/03/21 10/03/21 Range/Units 05:42 05:42 06:08 RBC 3.34 L (3.80-5.40) m/uL Hgb 11.1 L (11.4-16.0) gm/dL MCV 110.1 H (80.0-100.0) fL MCHC 30.2 L (31.0-37.0) g/dL Neutrophils # (Manual) 9.10 H (1.3-7.7) k/uL Lymphocytes # (Manual) 0.71 L (1.0-4.8) k/uL Myelocytes # (Manual) 0.10 H (0) k/uL Macrocytosis Marked A Chloride 113 H (98-107) mmol/L Carbon Dioxide 18 L (22-30) mmol/L Creatinine 1.14 H (0.52-1.04) mg/dL Glucose 103 H (74-99) mg/dL POC Glucose (mg/dL) 116 H (75-99) mg/dL Calcium 7.2 L (8.4-10.2) mg/dL AST 40 H (14-36) U/L Total Protein 4.0 L (6.3-8.2) g/dL Albumin 1.8 L (3.5-5.0) g/dL Microbiology - Last 24 Hours (Table) 10/02/21 00:37 Urine Culture - Preliminary Urine,Voided - Imaging and Cardiology Chest x-ray: report reviewed Assessment and Plan (1) Colonic mass Current Visit: Yes Status: Acute Priority: High Code(s): K63.89 - OTHER SPECIFIED DISEASES OF INTESTINE SNOMED Code(s): 586902746 Plan: Dr. Carty discussed recommendation for adjuvant chemotherapy to reduce the risk of recurrence because of the size/invasiveness of her tumor. Plan is to f/u in 4-6 weeks post op, review diagnosis, prognosis and treatment rationales again and allow pt opportunity to make a decision. No treatment would begin prior to adeq uate healing from surgery. Pt questions were answered. F/U appt in chart. Attests: I have performed H&P, seen and examined pt, developed impression and plan of care. Discussed with dictator. Agree with dictation, documented as a scribe.
--- NOTE | 2021-10-03 13:10 | P.PN ---
Subjective Progress Note Date: 10/03/21 CHIEF COMPLAINT: Sigmoid colon tumor HISTORY OF PRESENT ILLNESS: Postoperative day #2status post exploratory laparotomy, sigmoid colectomy with end colostomy, partial cystectomy, left salpingectomy, appendectomy and repair of left ureter. Patient is currently in the ICU. Patient has been hypotensive and having low urine output. She is received 2 L fluid bolus. She is complaining of abdominal pain. Unfortunately when she does receive the 1 mg of IV Dilaudid it decreases her blood pressure further. Her ostomy is functioning. No nausea or vomiting reported. Afebrile. WBC is down from 13 to 10.1 hemoglobin 11.1 platelets 193 Sodium 137 potassium 4.5 creatinine 1.14 magnesium 2. Patient evaluated by oncology recommending adjuvant chemotherapy. Patient seen and examined with Dr. sams PHYSICAL EXAM: VITAL SIGNS: Reviewed. GENERAL: Well-developed in no acute distress. HEENT: No sclera icterus. Extraocular movements grossly intact. Moist buccal mucosa. Head is atraumatic, normocephalic. ABDOMEN: Soft. Distended. Mild tenderness with palpation. Ostomy functioning. Stoma beefy red NEUROLOGIC: Alert and oriented. Cranial nerves II through XII grossly intact. ASSESSMENT: 1. 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 Hypomagnesemia resolved PLAN: -Patient has persistent serous drainage from LUZMA drain about 270 mL output and 215 urine output since [address] sams did discuss case with urology. check body fluid Cr from LUZMA drain -Continue ICU management -Continue supportive care -Add Dilaudid 0.25 mg IV every 1 hour as needed for breakthrough pain -Keep patient nothing by mouth except for ice chips, popsicles, meds -Continue IV fluids -keep Eliquis on hold -Pathology results pending -DVT prophylaxis subcu heparin and GI prophylaxis Pepcid Physician Ciaio Counter Molder note has been reviewed by physician. Signing provider agrees with the documented findings, assessment, and plan of care. Objective - Vital Signs Vital signs: Vital Signs Temp 97.7 F 10/03/21 08:00 Pulse 75 10/03/21 11:00 Resp 13 10/03/21 11:00 BP 98/58 10/03/21 11:00 Pulse Ox 99 10/03/21 11:00 Intake & Output 10/02/21 10/03/21 10/03/21 18:59 06:59 18:59 Intake Total 3060.442 1900 2000 Output Total 775 555 415 Balance 2285.442 1345 1585 Weight 57.4 kg Intake: IV 3000 1900 2000 D5-0.45% NaCl with KCl 1500 1500 375 20Meq/l 1,000 ml @ 125 mls/hr IV .Q8H [facility] Rx#: [id number] Lactated Ringers 1,000 ml 1000 @ 999 mls/hr IV .Q1H1M [facility] Rx#:[id number] Magnesium Sulfate-D5w Pmx 300 1 gm In Dextrose/Water 1 100ml.bag @ 100 mls/hr IVPB Q1H [facility] Rx#: [id number] Piperacillin-Tazobactam 3 100 200 .375 gm In Sodium Chloride 0.9% 100 ml @ 25 mls/hr IVPB Q8H [facility] Rx#: [id number] Sodium Chloride 0.9% 1, 1000 000 ml @ 999 mls/hr IV . Q1H1M [facility] Rx#:[id number] Sodium Chloride 0.9% 500 625 ml 500 ml @ 999 mls/hr IV .Q31M [facility] Rx#:[id number] metroNIDAZOLE-NS PMX 500 100 200 mg In Saline 1 100ml.bag @ 100 mls/hr IVPB Q8H [facility] Rx#:[id number] Intake, IV Titration 60.442 Amount propofoL 1,000 mg In 60.442 Empty Bag 1 bag @ 5 MCG/ KG/MIN 1.722 mls/hr IV . Q24H [facility] Rx#:[id number] Output: Gastric Drainage 50 Drainage 360 235 240 Right Abdomen 360 235 240 Urine 365 250 165 Stool 70 Urine/Stool Mix 10 Other: Voiding Method Indwelling Catheter Indwelling Catheter # Bowel Movements 1 1 - Labs CBC & Chem 7: 10/03/21 05:42 10/03/21 05:42 Labs: Abnormal Lab Results - Last 24 Hours (Table) 10/02/21 10/02/21 10/03/21 Range/Units 14:15 17:03 00:10 RBC (3.80-5.40) m/uL Hgb (11.4-16.0) gm/dL MCV (80.0-100.0) fL MCHC (31.0-37.0) g/dL Neutrophils # (Manual) (1.3-7.7) k/uL Lymphocytes # (Manual) (1.0-4.8) k/uL Myelocytes # (Manual) (0) k/uL Macrocytosis Chloride (98-107) mmol/L Carbon Dioxide (22-30) mmol/L Creatinine (0.52-1.04) mg/dL Glucose (74-99) mg/dL POC Glucose (mg/dL) 224 H 145 H 101 H (75-99) mg/dL Calcium (8.4-10.2) mg/dL AST (14-36) U/L Total Protein (6.3-8.2) g/dL Albumin (3.5-5.0) g/dL 10/03/21 10/03/21 10/03/21 Range/Units 05:42 05:42 06:08 RBC 3.34 L (3.80-5.40) m/uL Hgb 11.1 L (11.4-16.0) gm/dL MCV 110.1 H (80.0-100.0) fL MCHC 30.2 L (31.0-37.0) g/dL Neutrophils # (Manual) 9.10 H (1.3-7.7) k/uL Lymphocytes # (Manual) 0.71 L (1.0-4.8) k/uL Myelocytes # (Manual) 0.10 H (0) k/uL Macrocytosis Marked A Chloride 113 H (98-107) mmol/L Carbon Dioxide 18 L (22-30) mmol/L Creatinine 1.14 H (0.52-1.04) mg/dL Glucose 103 H (74-99) mg/dL POC Glucose (mg/dL) 116 H (75-99) mg/dL Calcium 7.2 L (8.4-10.2) mg/dL AST 40 H (14-36) U/L Total Protein 4.0 L (6.3-8.2) g/dL Albumin 1.8 L (3.5-5.0) g/dL 10/03/21 Range/Units 11:23 RBC (3.80-5.40) m/uL Hgb (11.4-16.0) gm/dL MCV (80.0-100.0) fL MCHC (31.0-37.0) g/dL Neutrophils # (Manual) (1.3-7.7) k/uL Lymphocytes # (Manual) (1.0-4.8) k/uL Myelocytes # (Manual) (0) k/uL Macrocytosis Chloride (98-107) mmol/L Carbon Dioxide (22-30) mmol/L Creatinine (0.52-1.04) mg/dL Glucose (74-99) mg/dL POC Glucose (mg/dL) 122 H (75-99) mg/dL Calcium (8.4-10.2) mg/dL AST (14-36) U/L Total Protein (6.3-8.2) g/dL Albumin (3.5-5.0) g/dL Microbiology - Last 24 Hours (Table) 10/02/21 00:37 Urine Culture - Final Urine,Voided
[2021-10-03] MEDS: HYDROmorphone 0.5 MG/0.5 ML SYRINGE IVP PRN ×2 (13:36→19:12)
--- NOTE | 2021-10-03 13:50 | P.PN ---
Subjective underwent left ureteroureterostomy and a repair of a cystotomy on 10/01/21. Urine is clear Output from LUZMA serosanguineous. Having Low UO, high output from the drain, but amount from the drain is decreasing. Creat stable at 1.1 Objective - Vital Signs Vital signs: Vital Signs Temp 97.7 F 10/03/21 08:00 Pulse 84 10/03/21 13:00 Resp 17 10/03/21 13:00 BP 102/52 10/03/21 13:00 Pulse Ox 98 10/03/21 13:00 Intake & Output 10/02/21 10/03/21 10/03/21 18:59 06:59 18:59 Intake Total 3060.442 1900 2125 Output Total 775 555 495 Balance 2285.442 1345 1630 Weight 57.4 kg Intake: IV 3000 1900 2125 D5-0.45% NaCl with KCl 1500 1500 500 20Meq/l 1,000 ml @ 125 mls/hr IV .Q8H [facility] Rx#: [id number] Lactated Ringers 1,000 ml 1000 @ 999 mls/hr IV .Q1H1M [facility] Rx#:[id number] Magnesium Sulfate-D5w Pmx 300 1 gm In Dextrose/Water 1 100ml.bag @ 100 mls/hr IVPB Q1H [facility] Rx#: [id number] Piperacillin-Tazobactam 3 100 200 .375 gm In Sodium Chloride 0.9% 100 ml @ 25 mls/hr IVPB Q8H [facility] Rx#: [id number] Sodium Chloride 0.9% 1, 1000 000 ml @ 999 mls/hr IV . Q1H1M [facility] Rx#:[id number] Sodium Chloride 0.9% 500 625 ml 500 ml @ 999 mls/hr IV .Q31M [facility] Rx#:[id number] metroNIDAZOLE-NS PMX 500 100 200 mg In Saline 1 100ml.bag @ 100 mls/hr IVPB Q8H [facility] Rx#:[id number] Intake, IV Titration 60.442 Amount propofoL 1,000 mg In 60.442 Empty Bag 1 bag @ 5 MCG/ KG/MIN 1.722 mls/hr IV . Q24H [facility] Rx#:[id number] Output: Gastric Drainage 50 Drainage 360 235 240 Right Abdomen 360 235 240 Urine 365 250 245 Stool 70 Urine/Stool Mix 10 Other: Voiding Method Indwelling Catheter Indwelling Catheter # Bowel Movements 1 1 - Constitutional General appearance: Present: no acute distress - Gastrointestinal General gastrointestinal: Present: soft, tenderness (Diffuse mild). Absent: distended - Psychiatric Psychiatric: Present: A&O x's 3 - Labs CBC & Chem 7: 10/03/21 05:42 10/03/21 05:42 Labs: Abnormal Lab Results - Last 24 Hours (Table) 10/02/21 10/02/21 10/03/21 Range/Units 14:15 17:03 00:10 RBC (3.80-5.40) m/uL Hgb (11.4-16.0) gm/dL MCV (80.0-100.0) fL MCHC (31.0-37.0) g/dL Neutrophils # (Manual) (1.3-7.7) k/uL Lymphocytes # (Manual) (1.0-4.8) k/uL Myelocytes # (Manual) (0) k/uL Macrocytosis Chloride (98-107) mmol/L Carbon Dioxide (22-30) mmol/L Creatinine (0.52-1.04) mg/dL Glucose (74-99) mg/dL POC Glucose (mg/dL) 224 H 145 H 101 H (75-99) mg/dL Calcium (8.4-10.2) mg/dL AST (14-36) U/L Total Protein (6.3-8.2) g/dL Albumin (3.5-5.0) g/dL 10/03/21 10/03/21 10/03/21 Range/Units 05:42 05:42 06:08 RBC 3.34 L (3.80-5.40) m/uL Hgb 11.1 L (11.4-16.0) gm/dL MCV 110.1 H (80.0-100.0) fL MCHC 30.2 L (31.0-37.0) g/dL Neutrophils # (Manual) 9.10 H (1.3-7.7) k/uL Lymphocytes # (Manual) 0.71 L (1.0-4.8) k/uL Myelocytes # (Manual) 0.10 H (0) k/uL Macrocytosis Marked A Chloride 113 H (98-107) mmol/L Carbon Dioxide 18 L (22-30) mmol/L Creatinine 1.14 H (0.52-1.04) mg/dL Glucose 103 H (74-99) mg/dL POC Glucose (mg/dL) 116 H (75-99) mg/dL Calcium 7.2 L (8.4-10.2) mg/dL AST 40 H (14-36) U/L Total Protein 4.0 L (6.3-8.2) g/dL Albumin 1.8 L (3.5-5.0) g/dL 10/03/21 Range/Units 11:23 RBC (3.80-5.40) m/uL Hgb (11.4-16.0) gm/dL MCV (80.0-100.0) fL MCHC (31.0-37.0) g/dL Neutrophils # (Manual) (1.3-7.7) k/uL Lymphocytes # (Manual) (1.0-4.8) k/uL Myelocytes # (Manual) (0) k/uL Macrocytosis Chloride (98-107) mmol/L Carbon Dioxide (22-30) mmol/L Creatinine (0.52-1.04) mg/dL Glucose (74-99) mg/dL POC Glucose (mg/dL) 122 H (75-99) mg/dL Calcium (8.4-10.2) mg/dL AST (14-36) U/L Total Protein (6.3-8.2) g/dL Albumin (3.5-5.0) g/dL Microbiology - Last 24 Hours (Table) 10/02/21 00:37 Urine Culture - Final Urine,Voided Assessment and Plan Assessment: S/P left ureteroureterostomy and cystotomy repair -Keep Mcfarland in place, we'll need to keep in place for 14 days -Stent will stay in for 6 weeks -No intervention at this time we'll continue to monitor urine output and LUZMA drainage. high Drain output can occur in the early post operative period
--- NOTE | 2021-10-03 14:18 | CDI ---
Documentation Clarification Form Date: 10/03/2021 01:00:35 PM From: Arpita Hart RN, CCDS Admit Date: 09/28/2021 08:56:00 PM Patient Name: Aide Menon Visit Number: [id number] Discharge Date: ATTENTION: The Clinical Documentation Specialists (CDI) and [facility] Coding Staff appreciate your assistance in clarifying documentation. Please respond to the clarification below the line at the bottom and electronically sign. The CDI & [facility] Coding staff will review the response and follow-up if needed. Please note: Queries are made part of the Legal Health Record. If you have any questions, please contact the author of this message via ITS. Dr. Ronald Carranza Transection of the ureter is documented in the operative note on 10/01/21 and the patient had sigmoid colectomy with end colostomy, partial cystectomy left salpingectomy, appendectomy and had a repair of left ureter. Additional clarification is requested regarding the relationship, if any, that exists between the diagnosis and the procedure. 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 09/28 CT abdomen pelvis: suspected partial large bowel obstruction secondary to eccentric bowel wall thickening of the sigmoid colon which is suspicious for primary malignancy. 10/01 Urology consult: Sigmoid resection for a colon mass. Of note the mass was invading the bladder, the sidewall and involve the left ureter. Thus there was a transection injury to the left ureter. Consulted for intraoperatively for ureteral repair. 10/01 Procedure Left ureteroureterostomy and a repair of a cystotomy on 10/01/21 Treatment: Telemetry/ICU monitoring Mcfarland Catheter (maintain) for 14 days, stent for 6 weeks Flagyl 500 MG IVPB Q 8 HRS 09/29-10/03, Zosyn 3.375 GM IVPB Q 8 HRS 09/29 -10/03 Dilaudid 1 MG IVP Q 3 HRS PRN, .25 MG IV Q 1 HR PRN What relationship, if any, exists between the diagnosis of transection injury to the left ureter and the procedure: [ ] Transection injury to left ureter is a complication of surgical procedure [ ] Transection injury to left ureter is an expected outcome of the surgical procedure [ xx] Transection injury to left ureter is related to patients co-morbid condition(s) of [insert co-morbid dxs] & not a complication of the procedure [ ] Other please specify ____ [ ] Unable to determine (Template Last Revised: July 2020) MTDD
--- NOTE | 2021-10-03 16:21 | P.PN ---
Subjective 66-year-old female presents to the emergency department with a chief complaint of abdominal pain. Patient states her symptoms started 10 days ago. Describes it as generalized abdominal pain with no radiation. No back pain. She states she had intermittent nausea for the first couple days that has since resolved. No fever, chills, vomiting, or diarrhea. Normal bowel movements with last bowel movement yesterday, nonbloody. Patient has been tolerating oral intake okay however states her appetite has decreased. No burning with urination, increased urinary frequency/urgency, or blood in the urine. No chest pain or shortness of breath. Patient does have history of atrial fibrillation on Eliquis. No upper respiratory symptoms or recent sick contacts. No previous abdominal surgeries. Patient does admit to tobacco use with [id number] history. She denies family history of aneurysm. CT is significant for a suspected partial large bowel obstruction secondary to eccentric bowel wall thickening of the sigmoid colon which is suspicious for primary malignancy. EKG revealed atrial fibrillation with rapid ventricular response; patient was started on IV Cardizem Patient continues to have abdominal distention and pain; no bowel movements; general surgery on board and planning to repeat abdominal x-ray with tentative plan for partial colectomy tomorrow Patient remains in atrial fibrillation with controlled ventricular response at this time; no anticoagulation therapy for anticipated surgery in next 24-48 h ours; echocardiogram reveals normal LV function and no significant valvular abnormalities; cardiology on board and recommending to continue with Lasix 20 mg daily for mild fluid overload; Resume the care of the patient 10/01/2021. Patient awake and alert. She still with abdominal complaint and pain and discomfort with no bowel movement. Surgery team are planning for exploratory laparotomy with possible diverting colostomy and possible sigmoid resection. Director Clinical Applications team on the case also for preop evaluation and also for her A. fib. Currently rate controlled on metoprolol and oral Lasix. She is on D5 half-normal saline at 50 mL per hour, Flagyl and Zosyn. Labs look stable. 10/02/2021 Patient with sigmoid mass status post exploratory laparotomy with Sigmoid colectomy with end colostomy, Partial cystectomy, Left salpingectomy, Appendectomy, Repair of left ureterPeriod secondary to left ureteral injury during surgical resection. Patient vomited by urologist and had left ureteral repair. Currently has a Mcfarland catheter was recommendation to stay for 2 weeks. Post operatively patient got intubated. Patient currently remains on mechanical ventilation She remains on Zosyn, Eliquis on hold. Patient is started on Pepcid and subcu heparin.. She received also normal saline boluses 10/03/2021 Today patient in the ICU status post extubation. She is postoperative day #2. She still nothing by mouth, awake but very weak. Her colostomy back in a Place, no bowel movement yet. Also Mcfarland catheter with PATRICE drain with more than 200 of serosanguineous fluid. Her pathology is pending, Eliquis still on hold, patient kept on Flagyl and Zosyn and IV fluids. Patient received 1 L of normal saline for hypertension, also her metoprolol dose lowered to 25 mg. Objective - Vital Signs Vital signs: Vital Signs Temp 97.7 F 10/03/21 08:00 Pulse 113 H 10/03/21 08:00 Resp 15 10/03/21 08:00 BP 90/56 10/03/21 08:00 Pulse Ox 99 10/03/21 08:00 Intake & Output 10/02/21 10/03/21 10/03/21 18:59 06:59 18:59 Intake Total 3060.442 1900 250 Output Total 775 555 115 Balance 2285.442 1345 135 Intake: IV 3000 1900 250 D5-0.45% NaCl with KCl 1500 1500 250 20Meq/l 1,000 ml @ 125 mls/hr IV .Q8H [facility] Rx#: [id number] Magnesium Sulfate-D5w Pmx 300 1 gm In Dextrose/Water 1 100ml.bag @ 100 mls/hr IVPB Q1H [facility] Rx#: [id number] Piperacillin-Tazobactam 3 100 200 .375 gm In Sodium Chloride 0.9% 100 ml @ 25 mls/hr IVPB Q8H [facility] Rx#: [id number] Sodium Chloride 0.9% 1, 1000 000 ml @ 999 mls/hr IV . Q1H1M [facility] Rx#:[id number] metroNIDAZOLE-NS PMX 500 100 200 mg In Saline 1 100ml.bag @ 100 mls/hr IVPB Q8H [facility] Rx#:[id number] Intake, IV Titration 60.442 Amount propofoL 1,000 mg In 60.442 Empty Bag 1 bag @ 5 MCG/ KG/MIN 1.722 mls/hr IV . Q24H [facility] Rx#:[id number] Output: Gastric Drainage 50 Drainage 360 235 50 Right Abdomen 360 235 50 Urine 365 250 55 Stool 70 Urine/Stool Mix 10 Other: Voiding Method Indwelling Catheter Indwelling Catheter # Bowel Movements 1 1 - Exam GENERAL: The patient is alert and oriented x3, not in any acute distress. Well developed, well nourished. HEENT: Pupils are round and equally reacting to light. EOMI. No scleral icterus. No conjunctival pallor. Normocephalic, atraumatic. No pharyngeal erythema. No thyromegaly. CARDIOVASCULAR: S1 and S2 present. No murmurs, rubs, or gallops. PULMONARY: Chest is clear to auscultation, no wheezing or crackles. -ABDOMEN: Soft, mild generalized tenderness and mild generalized distention, normoactive bowel sounds. No palpable organomegaly. Colostomy tube in place, Mcfarland catheter MUSCULOSKELETAL: No joint swelling or deformity. EXTREMITIES: No cyanosis, clubbing, or pedal edema. NEUROLOGICAL: Gross neurological examination did not reveal any focal deficits. SKIN: No rashes. no petechiae. - Labs CBC & Chem 7: 10/03/21 05:42 10/03/21 05:42 Labs: Abnormal Lab Results - Last 24 Hours (Table) 10/02/21 10/02/21 10/03/21 Range/Units 14:15 17:03 00:10 RBC (3.80-5.40) m/uL Hgb (11.4-16.0) gm/dL MCV (80.0-100.0) fL MCHC (31.0-37.0) g/dL Macrocytosis Chloride (98-107) mmol/L Carbon Dioxide (22-30) mmol/L Creatinine (0.52-1.04) mg/dL Glucose (74-99) mg/dL POC Glucose (mg/dL) 224 H 145 H 101 H (75-99) mg/dL Calcium (8.4-10.2) mg/dL AST (14-36) U/L Total Protein (6.3-8.2) g/dL Albumin (3.5-5.0) g/dL 10/03/21 10/03/21 10/03/21 Range/Units 05:42 05:42 06:08 RBC 3.34 L (3.80-5.40) m/uL Hgb 11.1 L (11.4-16.0) gm/dL MCV 110.1 H (80.0-100.0) fL MCHC 30.2 L (31.0-37.0) g/dL Macrocytosis Marked A Chloride 113 H (98-107) mmol/L Carbon Dioxide 18 L (22-30) mmol/L Creatinine 1.14 H (0.52-1.04) mg/dL Glucose 103 H (74-99) mg/dL POC Glucose (mg/dL) 116 H (75-99) mg/dL Calcium 7.2 L (8.4-10.2) mg/dL AST 40 H (14-36) U/L Total Protein 4.0 L (6.3-8.2) g/dL Albumin 1.8 L (3.5-5.0) g/dL Microbiology - Last 24 Hours (Table) 10/02/21 00:37 Urine Culture - Preliminary Urine,Voided Assessment and Plan Assessment: -Sigmoid wall thickening suspicious for sigmoid months with partial colon obstruction. status post exploratory laparotomy with Sigmoid colectomy with end colostomy, Partial cystectomy, Left salpingectomy, Appendectomy, Repair of left ureterPeriod secondary to left ureteral injury during surgical resection -A. fib and RVR. -Hypertension -Hyperlipidemia -History of COPD, not in activation Plan: this is a pleasant 66 years old female. Going for bowel surgery for her possible colon mass. Also with A. fib. Continue with Surgery team on the case. Continue with Flagyl and Zosyn and gentle hydration. Her surgery team Pulmonary team. Patient status post extubation Cardiology team on the case, continue with metoprolol. Continue gentle hydration Neurology team on the case Labs and medication were reviewed.. Continue same treatment. Continue with symptomatic treatment. Resume home medication. Monitor lytes and vitals. DVT and GI prophylaxis. Further recommendations as per clinical course of the patient DVT prophylaxis: Subcu heparin. Libbyquis is on hold GI Prophylaxis: Pepcid PT/OT: Deferred Prognosis is guarded
[2021-10-03 16:48] LABS: Glucose,Whole Blood 127 mg/dL (75-99)
[2021-10-03 19:45] LABS: Glucose,Whole Blood 108 mg/dL (75-99)
[2021-10-03] MEDS: ATORVASTATIN 40 MG TAB PO SCH (19:57)
[2021-10-04] MEDS: NOREPINEPHRINE 4 MG in SODIUM CHLORIDE 0.9% 250 ML IV SCH (00:51)
[2021-10-04] MEDS: HYDROmorphone 0.5 MG/0.5 ML SYRINGE IVP PRN ×2 (00:51→10:38)
[2021-10-04] MEDS: HEPARIN SODIUM,PORCINE/PF 5,000 UNIT/0.5 ML SYRINGE SQ SCH ×4 (00:51→22:34)
[2021-10-04] MEDS: metroNIDAZOLE-NS PMX 500 MG in SALINE 1 100ML.BAG IVPB SCH ×3 (04:39→20:42)
[2021-10-04] MEDS: PIPERACILLIN-TAZOBACTAM 3.375 GM in SODIUM CHLORIDE 0.9% 100 ML IVPB SCH ×3 (05:36→22:34)
[2021-10-04 06:10] LABS: Glucose,Whole Blood 94 mg/dL (75-99)
--- NOTE | 2021-10-04 07:38 | P.PN ---
Subjective underwent left ureteroureterostomy and a repair of a cystotomy on 10/01/21. Urine is clear Output from LUZMA serosanguineous. Still having high output from drain. Creat stable at 1.1 Objective - Vital Signs Vital signs: Vital Signs Temp 97.7 F 10/04/21 04:00 Pulse 92 10/04/21 07:00 Resp 14 10/04/21 07:00 BP 106/64 10/04/21 07:00 Pulse Ox 95 10/04/21 07:00 Intake & Output 10/03/21 10/04/21 10/04/21 18:59 06:59 18:59 Intake Total 2825 1700 125 Output Total 760 755 75 Balance 2065 945 50 Weight 57.4 kg 72 kg Intake: IV 2825 1700 125 D5-0.45% NaCl with KCl 1000 1500 125 20Meq/l 1,000 ml @ 125 mls/hr IV .Q8H [facility] Rx#: [id number] Lactated Ringers 1,000 ml 1000 @ 999 mls/hr IV .Q1H1M [facility] Rx#:[id number] Piperacillin-Tazobactam 3 100 100 .375 gm In Sodium Chloride 0.9% 100 ml @ 25 mls/hr IVPB Q8H [facility] Rx#: [id number] Sodium Chloride 0.9% 500 625 ml 500 ml @ 999 mls/hr IV .Q31M [facility] Rx#:[id number] metroNIDAZOLE-NS PMX 500 100 100 mg In Saline 1 100ml.bag @ 100 mls/hr IVPB Q8H [facility] Rx#:[id number] Output: Drainage 355 365 35 Right Abdomen 355 365 35 Urine 395 390 40 Urine/Stool Mix 10 Other: Voiding Method Indwelling Catheter Indwelling Catheter # Bowel Movements 1 - Constitutional General appearance: Present: no acute distress - Gastrointestinal General gastrointestinal: Present: soft, tenderness (lower quadrant ). Absent: distended - Psychiatric Psychiatric: Present: A&O x's 3 - Labs CBC & Chem 7: 10/03/21 05:42 10/03/21 05:42 Labs: Abnormal Lab Results - Last 24 Hours (Table) 10/03/21 10/03/21 10/03/21 Range/Units 05:42 05:42 11:23 RBC 3.34 L (3.80-5.40) m/uL Hgb 11.1 L (11.4-16.0) gm/dL MCV 110.1 H (80.0-100.0) fL MCHC 30.2 L (31.0-37.0) g/dL Neutrophils # (Manual) 9.10 H (1.3-7.7) k/uL Lymphocytes # (Manual) 0.71 L (1.0-4.8) k/uL Myelocytes # (Manual) 0.10 H (0) k/uL Macrocytosis Marked A Chloride 113 H (98-107) mmol/L Carbon Dioxide 18 L (22-30) mmol/L Creatinine 1.14 H (0.52-1.04) mg/dL Glucose 103 H (74-99) mg/dL POC Glucose (mg/dL) 122 H (75-99) mg/dL Calcium 7.2 L (8.4-10.2) mg/dL AST 40 H (14-36) U/L Total Protein 4.0 L (6.3-8.2) g/dL Albumin 1.8 L (3.5-5.0) g/dL 10/03/21 10/03/21 Range/Units 16:37 19:44 RBC (3.80-5.40) m/uL Hgb (11.4-16.0) gm/dL MCV (80.0-100.0) fL MCHC (31.0-37.0) g/dL Neutrophils # (Manual) (1.3-7.7) k/uL Lymphocytes # (Manual) (1.0-4.8) k/uL Myelocytes # (Manual) (0) k/uL Macrocytosis Chloride (98-107) mmol/L Carbon Dioxide (22-30) mmol/L Creatinine (0.52-1.04) mg/dL Glucose (74-99) mg/dL POC Glucose (mg/dL) 127 H 108 H (75-99) mg/dL Calcium (8.4-10.2) mg/dL AST (14-36) U/L Total Protein (6.3-8.2) g/dL Albumin (3.5-5.0) g/dL Microbiology - Last 24 Hours (Table) 10/02/21 00:37 Urine Culture - Final Urine,Voided Assessment and Plan Assessment: S/P left ureteroureterostomy and cystotomy repair -Keep Mcfarland in place, we'll need to keep in place for 14 days -Stent will stay in for 6 weeks -Will obtain Fluid Creat -KUB to assess stent location
--- NOTE | 2021-10-04 08:07 | XR ---
EXAMINATION TYPE: XR KUB DATE OF EXAM: 10/04/2021 Comparison: 10/11/2021 Clinical History: 66-year-old female assessment of stent location Findings: Skin sahil along the anterior midline pelvis. Right-sided surgical drain within the pelvis. A left- sided ureteral stent is present. Distal loop in the region of the bladder. However, the proximal loop is partially and coiled and displaced medially to the midline. 7 mm calculus left mid abdomen persis ts. Some patchy bibasilar opacities are increased. Some scattered colonic air within the rectum and right side of the colon. Borderline distended small bowel right mid abdomen measuring up to 2.9 cm. Impression: 1. Left ureteral stent. The proximal end is partially uncoiled and is abnormally positioned, displace d to the midline. Clinical correlation recommended. 2. Skin sahil at the pelvis and surgical drain relating to recent operation. Some borderline disten ded small bowel loops likely due to recent resolution of distal colonic obstruction versus mild posto perative ileus. 3. Development of some patchy bibasilar atelectasis versus infiltrates.
[2021-10-04 08:46] LABS: Calcium 7.5 mg/dL (8.4-10.2); Potassium 5.2 mmol/L (3.5-5.1)
[2021-10-04 09:07] LABS: Basophils % (A) 0 %; Eosinophils # (A) 0.2 k/uL (0-0.7); Eosinophils % (A) 2 %; HCT 35.2 % (34.0-46.0); HGB 10.7 gm/dL (11.4-16.0); Hypochromasia Marked; Lymphocytes # (A) 0.8 k/uL (1.0-4.8); Lymphocytes % (A) 10 %; MCH 33.1 pg (25.0-35.0); MCHC 30.5 g/dL (31.0-37.0); MCV 108.6 fL (80.0-100.0); Macrocytosis Moderate; Mean Platelet Volume 7.6; Monocytes # (A) 0.3 k/uL (0-1.0); Monocytes % (A) 4 %; Neutrophils # (A) 7.5 k/uL (1.3-7.7); Neutrophils % (A) 84 %; Platelet Count 214 k/uL (150-450); RBC 3.24 m/uL (3.80-5.40); RDW 13.5 % (11.5-15.5); WBC 8.9 k/uL (3.8-10.6)
[2021-10-04] MEDS: INSULIN ASPART (NovoLOG) 100 UNIT/ML VIAL SQ SCH ×4 (09:07→22:19)
[2021-10-04] MEDS: D5-0.45% NACL WITH KCL 20MEQ/L 1,000 ML IV SCH (09:15)
[2021-10-04] MEDS: DEXTROSE 5%-0.45% NACL 1,000 ML IV SCH ×2 (09:21→18:25)
[2021-10-04] MEDS: METOPROLOL TARTRATE 25 MG TAB PO SCH ×2 (09:21→20:42)
[2021-10-04] MEDS: FAMOTIDINE 20 MG/2 ML VIAL IV SCH (09:21)
--- NOTE | 2021-10-04 10:33 | P.PN ---
Subjective Progress Note Date: 10/04/21 Principal diagnosis: Abdominal pain This is a 66-year-old female patient with past a history of smoking, COPD, hypertension, hyperlipidemia, chronic A. fib, coronary artery disease, who presented to the emergency department on 09/28/2021 with chief complaint of abdominal pain which had been ongoing for 10 days prior to presentation. Patient was also complaining of intermittent nausea, but no fever, no chills, no vomiting or diarrhea. Denied any blood in the stools. CT of abdomen and pelvis with contrast in the emergency department showed partial large bowel obstruction secondary to extensive bowel wall thickening of the sigmoid colon that was suspicious for primary malignancy. There was a string dilation of the colon and small bowel, there was mild cardiomegaly and hepatic steatosis. Patient had a prior colonoscopy 3 years ago. Admission labs showed normal white count of 4.6, hemoglobin was 16.2, INR was 1.2, electrolytes and renal profile were unremarkable, troponin was negative at less than 0.012, proBNP was 4290, lipase was within normal limits at 75, LFTs were within normal limits, urinalysis showed 1+ ketones, rare bacteria, negative glucose, no clear evidence of infection. Patient recently had a heart catheterization in August 2021 which showed total occlusion of the RCA with intermediate disease involving the left coronary system, and preserved left ventricular systolic function. Patient was started on IV fluids, and antibiotics and surgical consultation was obtained. She was taken to surgery on 10/01/2021, by Dr. Carranza and Dr. Luevano and underwent exploratory laparotomy, sigmoid colectomy with end colostomy, partial cystectomy, left salpingectomy, appendectomy, and repair of left ureter. In the recovery room patient was extubated however she needed to be reintubated in the recovery room in view of difficulty breathing, hypoxia, and insufficient respiratory effort. She was admitted to the intensive care unit following a recent intubation. This morning she remains intubated and on mechanical ventilator, with assist control mode of ventilation with a rate of 18, tidal volume is 350, FiO2 of 40%, and PEEP of 5. Today's blood gas shows a pO2 of 76, pCO2 47, and pH of 7.32 this was done and the above-mentioned ventilator s ettings, today's chest x-ray showing mild infiltrate and atelectasis at the right lung base which is improved compared old exam, and there is clearing of the pulmonary congestion. Patient is currently on D5 half-normal saline with 20 of potassium at a rate of 125, and improving and at 25 mics per kilo per minute, she did require 2-1/2 L bolus last night for low urine output. She is not requiring any vasopressor support right now. Today's labs have been reviewed White blood cell count is 13, hemoglobin is 12.3, sodium is 137, potassium is 4.1, chloride is 109, BUN is 14, creatinine is 1.07. Urinalysis was repeated showing large amount of blood, moderate leuks, and 15 of white blood cells, patient is on Zosyn for empiric antibiotic coverage. Her surgical biopsy results are still pending. Abdominal incision is covered with a surgical dressing, clean dry and intact, well approximated, patient has left lower quadrant colostomy with no stool or gas. On 10/03/2021 patient seen in follow-up in the intensive care unit, she was successfully weaned and extubated yesterday on 10/02/2021 on postoperative day #1. Today she is awake and alert, oriented 3, she is on 2 L oxygen and pulse ox is 99%, she is breathing comfortably, follow-up chest x-ray is pending but patient denies any shortness of breath, no cough, she been afebrile through the night, blood pressures have been on the lower side or marginal, she is in atrial fibrillation which is chronic for her, and at times she is slightly tachycardic with a rate in the low 100s BPM. IV fluids are D5 half-normal saline with 20 of potassium at a rate of 125 ML per hour, no nasal pressors. She remains on Zosyn for empiric antibiotic coverage. Abdomen has postoperative tenderness, left lower quadrant colostomy is producing brown stool. Lung sounds are clear, diminished, incentive spirometer effort is 1000 mL today. Urine output through the night has been marginal, in the order of 25-30 ML per hour, blood pressures have been marginal, patient's Lasix was placed on hold, recent echocardiogram showed LV function with EF of 45-50%. Today's labs have been reviewed, white blood cell count is 10.1, hemoglobin is 11.1, platelet count is 193, sodium is 137, potassium is 4.5, chloride is 113, CO2 is 18, BUN is 14, creatinine is 1.14. Patient has been tolerating ice chips, and popsicles, but she has had very poor oral intake and she states she does not feel like taking anything by mouth. No nausea or vomiting. Oral membranes are very dry, no lower extremity edema, lung sounds are clear. Abdominal incision is clean dry and intact, covered with a dressing, LUZMA drain is in place draining serosanguineous output and there has been 595 mL of output from the LUZMA drain over the last 24 hours. On 10/04/2021 patient seen in follow-up in the intensive care unit, she is awake and alert, in no acute distress. She is on 2 L of oxygen satting 95-100%, denies any respiratory difficulty, she needs encouragement and reminded using incentive spirometry, she is achieving 750 on it today. She is tolerating ice chips, she is a bit nauseous, but has had no vomiting. She is on D5 half-normal saline with 20 of potassium at a rate of 130 ML per hour, her colostomy is producing soft brown stool. She remains nothing by mouth except for ice chips and popsicles. LUZMA drain is producing large amount of serous output, patient has produced 720 ML of serous output from the LUZMA drain, there was a question regarding possibility of urine in the LUZMA drain, and for that reason LUZMA drainage was sent for urine creatinine. Abdominal x-ray was obtained today showing left ureteral stent with proximal and partially uncoiled, and abnormally positioned, displaced to the middle skin sahil at the pelvis and surgical drain some borderline distended small bowel loops, and development of some patchy basilar atelectasis versus infiltrate. Today's labs have been reviewed, white blood cell count is 8.9, hemoglobin is 10.7, sodium is 138, potassium is 5.2, chloride is 114, CO2 is 21, BUN is 10 and creatinine is 1.04. Urine output is in the order of 30-40 mL per hour, and this morning it is improved up to 50-100 ML per hour. Patient is developing some mild trace pretibial edema, we'll cut back IV fluids and switch it to D5 half-normal saline at a rate of 50 ML per hour Objective - Vital Signs Vital signs: Vital Signs Temp 97.7 F 10/04/21 04:00 Pulse 87 10/04/21 09:00 Resp 20 10/04/21 09:00 BP 109/65 10/04/21 09:00 Pulse Ox 95 10/04/21 09:00 Intake & Output 10/03/21 10/04/21 10/04/21 18:59 06:59 18:59 Intake Total 2825 1700 425 Output Total 760 755 445 Balance 2065 945 -20 Weight 57.4 kg 72 kg Intake: IV 2825 1700 375 D5-0.45% NaCl with KCl 1000 1500 375 20Meq/l 1,000 ml @ 125 mls/hr IV .Q8H [facility] Rx#: [id number] Lactated Ringers 1,000 ml 1000 @ 999 mls/hr IV .Q1H1M [facility] Rx#:[id number] Piperacillin-Tazobactam 3 100 100 .375 gm In Sodium Chloride 0.9% 100 ml @ 25 mls/hr IVPB Q8H [facility] Rx#: [id number] Sodium Chloride 0.9% 500 625 ml 500 ml @ 999 mls/hr IV .Q31M [facility] Rx#:[id number] metroNIDAZOLE-NS PMX 500 100 100 mg In Saline 1 100ml.bag @ 100 mls/hr IVPB Q8H [facility] Rx#:[id number] Intake, IV Titration 50 Amount Dextrose 5%-0.45% NaCl 1, 50 000 ml @ 50 mls/hr IV . Q20H [facility] Rx#:[id number] Output: Drainage 355 365 135 Right Abdomen 355 365 135 Urine 395 390 290 Stool 20 Urine/Stool Mix 10 Other: Voiding Method Indwelling Catheter Indwelling Catheter Indwelling Catheter # Bowel Movements 1 - Exam GENERAL EXAM: Awake and alert oriented 3, 66-year-old female, on 2 L of oxygen and the pulse ox of 99%, comfortable in no apparent distress. HEAD: Normocephalic/atraumatic. EYES: Normal reaction of pupils, equal size. Conjunctiva pink, sclera white. NOSE: Clear with pink turbinates. THROAT: No erythema or exudates. NECK: No masses, no JVD, no thyroid enlargement, no adenopathy. CHEST: No chest wall deformity. Symmetrical expansion. LUNGS: Equal air entry with no crackles, wheeze, rhonchi or dullness. CVS: Regular rate and rhythm, normal S1 and S2, no gallops, no murmurs, no rubs ABDOMEN: Soft, nontender. Left lower quadrant colostomy in place producing soft brown stool, Mid abdominal incision below the umbilicus is clean dry and intact, sahil are intact, covered with surgical dressing, LUZMA drain with moderate amount of serosanguineous drainage, compressed and draining No hepatosplenomegaly, normal bowel sounds, no guarding or rigidity. EXTREMITIES: No clubbing, no edema, no cyanosis, 2+ pulses and upper and lower extremities. MUSCULOSKELETAL: Muscle strength and tone normal. SPINE: No scoliosis or deformity SKIN: No rashes CENTRAL NERVOUS SYSTEM: Awake and alert, oriented 3 No focal deficits, tone is normal in all 4 extremities. - Labs CBC & Chem 7: 10/04/21 08:02 10/04/21 08:02 Labs: Abnormal Lab Results - Last 24 Hours (Table) 10/03/21 10/03/21 10/03/21 Range/Units 05:42 11:23 16:37 RBC (3.80-5.40) m/uL Hgb (11.4-16.0) gm/dL MCV (80.0-100.0) fL MCHC (31.0-37.0) g/dL Neutrophils # (Manual) 9.10 H (1.3-7.7) k/uL Lymphocytes # (1.0-4.8) k/uL Lymphocytes # (Manual) 0.71 L (1.0-4.8) k/uL Myelocytes # (Manual) 0.10 H (0) k/uL Potassium (3.5-5.1) mmol/L Chloride (98-107) mmol/L Carbon Dioxide (22-30) mmol/L POC Glucose (mg/dL) 122 H 127 H (75-99) mg/dL Calcium (8.4-10.2) mg/dL 10/03/21 10/04/21 10/04/21 Range/Units 19:44 08:02 08:02 RBC 3.24 L (3.80-5.40) m/uL Hgb 10.7 L (11.4-16.0) gm/dL MCV 108.6 H (80.0-100.0) fL MCHC 30.5 L (31.0-37.0) g/dL Neutrophils # (Manual) (1.3-7.7) k/uL Lymphocytes # 0.8 L (1.0-4.8) k/uL Lymphocytes # (Manual) (1.0-4.8) k/uL Myelocytes # (Manual) (0) k/uL Potassium 5.2 H (3.5-5.1) mmol/L Chloride 114 H (98-107) mmol/L Carbon Dioxide 21 L (22-30) mmol/L POC Glucose (mg/dL) 108 H (75-99) mg/dL Calcium 7.5 L (8.4-10.2) mg/dL Microbiology - Last 24 Hours (Table) 10/02/21 00:37 Urine Culture - Final Urine,Voided Assessment and Plan Plan: Assessment: #1. Acute hypoxic and hypercapnic respiratory failure following surgical procedure possibly related to procedural sedation and history of COPD, and patient had to be reintubated in the recovery room following exploratory laparotomy, sigmoid colectomy, partial cystectomy, left salpingectomy, appendectomy and repair of the left ureter on 10/01/2021. Chest x-ray today showing some mild infiltration and atelectasis at the right lung base #2. 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 Abdominal pain related to the above #4. Hypotension, related to hypovolemia, improved with IV fluid boluses #5. History of COPD #6. Former smoker #7. Coronary artery disease #8. Chronic A. fib on Eliquis which is currently on hold #9. Hypertension #10. Hyperlipidemia Plan: Switch IV fluids to D5 half at 50 ML per hour Continue antibiotics per surgery Gen. surgery and urology recommendations Continue encouraging deep breathing and coughing Up in the chair today Hemodynamically stable Encourage incentive spirometry use Dietary recommendations per surgery From pulmonary/critical care perspective patient can transfer out of intensive care unit to general medical floor I have personally seen and examined the patient, performed the documentation and the assessment and plan as written. Number of minutes spent on the visit: [10] Time with Patient: Less than 30
[2021-10-04 11:37] LABS: Glucose,Whole Blood 95 mg/dL (75-99)
--- NOTE | 2021-10-04 12:38 | P.PN ---
Subjective Progress Note Date: 10/04/21 Principal diagnosis: sigmoid mass, status post resection Pt is doing well s/p surgery, the ostomy is functioning but unfortunately she is still trying to learn how to manage collection device. No acute physical complaints. She does have discomfort in the abdomen but, feels that her pain is controlled. Objective - Vital Signs Vital signs: Vital Signs Temp 97.7 F 10/04/21 04:00 Pulse 87 10/04/21 09:00 Resp 20 10/04/21 09:00 BP 109/65 10/04/21 09:00 Pulse Ox 95 10/04/21 09:00 Intake & Output 10/03/21 10/04/21 10/04/21 18:59 06:59 18:59 Intake Total 2825 1700 425 Output Total 760 755 445 Balance 2065 945 -20 Weight 57.4 kg 72 kg Intake: IV 2825 1700 375 D5-0.45% NaCl with KCl 1000 1500 375 20Meq/l 1,000 ml @ 125 mls/hr IV .Q8H [facility] Rx#: [id number] Lactated Ringers 1,000 ml 1000 @ 999 mls/hr IV .Q1H1M [facility] Rx#:[id number] Piperacillin-Tazobactam 3 100 100 .375 gm In Sodium Chloride 0.9% 100 ml @ 25 mls/hr IVPB Q8H [facility] Rx#: [id number] Sodium Chloride 0.9% 500 625 ml 500 ml @ 999 mls/hr IV .Q31M [facility] Rx#:[id number] metroNIDAZOLE-NS PMX 500 100 100 mg In Saline 1 100ml.bag @ 100 mls/hr IVPB Q8H [facility] Rx#:[id number] Intake, IV Titration 50 Amount Dextrose 5%-0.45% NaCl 1, 50 000 ml @ 50 mls/hr IV . Q20H [facility] Rx#:[id number] Output: Drainage 355 365 135 Right Abdomen 355 365 135 Urine 395 390 290 Stool 20 Urine/Stool Mix 10 Other: Voiding Method Indwelling Catheter Indwelling Catheter Indwelling Catheter # Bowel Movements 1 - Constitutional General appearance: Present: average body habitus, cooperative, mild distress - EENT Eyes: Present: anicteric sclerae, EOMI ENT: Present: hearing grossly normal - Respiratory Respiratory: bilateral: CTA - Cardiovascular Rhythm: regular Heart sounds: normal: S1, S2 Abnormal Heart Sounds: Absent: systolic murmur, diastolic murmur, rub, S3 Gallop, S4 Gallop, click, other - Peripheral edema leg Peripheral Edema: bilateral: Trace - Gastrointestinal Gastrointestinal Comment(s): Abdominal bandages in place, no unusual drainage noted, no unusual swelling or bruising noted of the abdomen General gastrointestinal: Present: soft - Integumentary Integumentary: Present: pale - Musculoskeletal Musculoskeletal: Present: generalized weakness - Psychiatric Psychiatric: Present: A&O x's 3, appropriate affect, intact judgment & insight - Labs CBC & Chem 7: 10/04/21 08:02 10/04/21 08:02 Labs: Abnormal Lab Results - Last 24 Hours (Table) 10/03/21 10/03/21 10/04/21 Range/Units 16:37 19:44 08:02 RBC 3.24 L (3.80-5.40) m/uL Hgb 10.7 L (11.4-16.0) gm/dL MCV 108.6 H (80.0-100.0) fL MCHC 30.5 L (31.0-37.0) g/dL Lymphocytes # 0.8 L (1.0-4.8) k/uL Potassium (3.5-5.1) mmol/L Chloride (98-107) mmol/L Carbon Dioxide (22-30) mmol/L POC Glucose (mg/dL) 127 H 108 H (75-99) mg/dL Calcium (8.4-10.2) mg/dL 10/04/21 Range/Units 08:02 RBC (3.80-5.40) m/uL Hgb (11.4-16.0) gm/dL MCV (80.0-100.0) fL MCHC (31.0-37.0) g/dL Lymphocytes # (1.0-4.8) k/uL Potassium 5.2 H (3.5-5.1) mmol/L Chloride 114 H (98-107) mmol/L Carbon Dioxide 21 L (22-30) mmol/L POC Glucose (mg/dL) (75-99) mg/dL Calcium 7.5 L (8.4-10.2) mg/dL Microbiology - Last 24 Hours (Table) 10/02/21 00:37 Urine Culture - Final Urine,Voided - Imaging and Cardiology Abdominal x-ray: report reviewed Assessment and Plan (1) Colonic mass Current Visit: Yes Status: Acute Priority: High Code(s): K63.89 - OTHER SPECIFIED DISEASES OF INTESTINE SNOMED Code(s): 208387628 Plan: Recommendation for adjuvant chemotherapy to reduce the risk of recurrence, necessary because of the size/invasiveness of her tumor. Plan is to f/u in 4-6 weeks post op, review diagnosis, prognosis and treatment rationales again and allow pt opportunity to make a decision. No treatment would begin prior to adequate healing from surgery. Pt questions were answered. F/U appt in chart.
--- NOTE | 2021-10-04 13:30 | P.OP ---
Date of Procedure: 10/01/21 Preoperative Diagnosis: Left ureteral injury Postoperative Diagnosis: Same Procedure(s) Performed: Ureteroureterostomy, stent insertion, and a repair of the cystotomy Implants: 6-Turkmen by 26 cm stent in the left ureter Anesthesia: TRAVON Surgeon: Victor M Luevano Estimated Blood Loss (ml): 25 Pathology: other Condition: stable Disposition: PACU Indications for Procedure: This is a 66-year-old female undergoing a sigmoid resection for a colon mass. Of note the mass was invading the bladder, the sidewall and involve the left ureter. Thus there was a transection injury to the left ureter. Urology was consulted intraoperatively for ureteral repair. Preoperative imaging showed no evidence of renal or ureteral abnormality Description of Procedure: Upon inspection of the abdomen the proximal and the distal end of the ureters were visualized. Both ends were viable. Next the sutures from the bladder repair were opened, and the bladder was bivalved. Next I passed a sensor wire through the left ureteral orifice, and I saw the wire extruding through the distal end. The right ureter was not involved with the dissection, there was no evidence of right ureteral injury. The proximal end of the ureter was mobilized, of note ureteral transection was above the iliac vessels, thus reimplant was not possible.. After mobilizing the proximal ureter, partial debridement of the proximal ureter was performed, and at this point healthy bleeding was encountered., next both ends of the ureters were spatulated. At this point there was no tension on both end of the ureters. Next ureteral ureteral anastomosis was performed using 4-0 Vicryl in running fashion, ensuring mucosal was obtained with every stitch.. [place] [address] through performing the anastomosis a ureteral stent was passed over a wire was advanced into the kidney. Next a ureteral stent was advanced over the wire. Next the wire was back fed through the distal end and the stent was advanced and the curl was seen in the bladder. Next a wire was removed with the stent in place. After completing the ureteral anastomoses attention was carried to the bladder repair. The bladder was closed in 2 layers using 2-0 Vicryl, initially closing the mucosal layer, and then using imbricating stitches to perform a second layer. The anastomosis was tested using 60 mL of cc's saline and it was watertight. At this time Gen. surgery completed the remaining portion of the surgery, a 20- Turkmen Mcfarland and a LUZMA drain was placed in the pelvis.
--- NOTE | 2021-10-04 14:04 | CT ---
EXAMINATION TYPE: CT abdomen pelvis wo con DATE OF EXAM: 10/04/2021 COMPARISON: CT dated 09/28/2021 HISTORY: Hematuria CT DLP: 566.6 mGycm Automated exposure control for dose reduction was used. TECHNIQUE: Helical acquisition of images was performed from the lung bases through the pelvis. FINDINGS: LUNG BASES: Bilateral pleural effusions larger on the right side with adjacent right pulmonary atelec tasis. Associated infection cannot be excluded, please correlate clinically. Cardiomegaly. Coronary a rterial atherosclerotic calcifications. LIVER/GB: The gallbladder is markedly distended with hyperdensity within likely representing thick sl udge. No definite hepatic focal lesion. PANCREAS: Slightly atrophic. SPLEEN: No significant abnormality is seen. ADRENALS: No significant abnormality is seen. KIDNEYS: Few millimetric bilateral renal calcification/tiny calculi measuring up to 3 mm. No other de finite renal lesion by this nonenhanced CT scan. No hydroureter or hydronephrosis. RETROPERITONEAL ADENOPATHY: No pathologically enlarged lymph nodes. REPRODUCTIVE ORGANS: No gross uterine or adnexal mass yet suboptimally assessed. URINARY BLADDER: Collapsed over a Mcfarland catheter. Double-J stent is seen with the inferior end is se en within the posterior aspect of the urinary bladder yet the stent is likely passing superiorly thro ugh the left gonadal vein into the left renal vein and IVC. Kindly recheck its position. Apparent sof t tissue thickening at the expected location of the left uterovesical junction, injury at that locati on cannot be excluded. PELVIC ADENOPATHY: No pathologically enlarged lymph nodes. OSSEOUS STRUCTURES: Mild retrolisthesis of L5 over S1 and anterolisthesis of L4 over L5. No gross ag gressive bone lesion. Osteopenia. BOWEL: Unremarkable nondistended stomach and duodenum. No evidence of bowel obstruction. Interval le ft lower quadrant colostomy with the rectal stump seen in the pelvis. Multiple segments of colonic wa ll thickening, nonspecific. Diffuse body wall subcutaneous edema, fat stranding and reactive fluid. P resacral soft tissue thickening with fluid and fat stranding. Multiple air bubbles are seen in the pe lvis, likely related to acute postoperative/post interventional changes. Anterior abdominal wall midl ine incision with overlying skin sahil. Right abdominal surgical drain is seen with the tip in the left lower quadrant. OTHER: Extensive arterial atherosclerotic calcification. Small amount of free pelvic fluid. IMPRESSION: Malpositioned double-J stent with the upper end is likely within the left renal vein/IVC as described above, kindly recheck its position. Suspected injury along the left uterovesical junction with multi ple pelvic air bubbles which could be also related to acute postoperative changes. Further CT urogram can be considered to properly assess the ureters and the urinary bladder. Other postoperative change s and other findings as detailed above. Findings were discussed with Dr. Sofía Luevano at 2:00 PM on 10/04/2021
--- NOTE | 2021-10-04 14:22 | P.PN ---
Subjective Progress Note Date: 10/04/21 CHIEF COMPLAINT: Sigmoid colon tumor HISTORY OF PRESENT ILLNESS: Postoperative day #3 status post exploratory laparotomy, sigmoid colectomy with end colostomy, partial cystectomy, left salpingectomy, appendectomy and repair of left ureter. Patient is currently in the ICU. Patient's urine output showed improvement. LUZMA drain is still having high output. Total of 500 mL serosanguineous output. Ostomy functioning. She complains of abdominal pain. Controlled pain medication. Denies any nausea vomiting . Afebrile. WBC is 8.9 hemoglobin is 10.7 platelets are 214 sodium 13 potassium 5.2 creatinine 1.04 Fluid creatinine from LUZMA drain is pending. Computed tomography scan had shown evidence of malposition double-J stent and this is being followed by urology Patient seen and examined with Dr. sams PHYSICAL EXAM: VITAL SIGNS: Reviewed. GENERAL: Well-developed in no acute distress. HEENT: No sclera icterus. Extraocular movements grossly intact. Moist buccal mucosa. Head is atraumatic, normocephalic. ABDOMEN: Soft. Distended. Mild tenderness with palpation. Ostomy with stool present. Stoma beefy red. Incision site clean dry and intact NEUROLOGIC: Alert and oriented. Cranial nerves II through XII grossly intact. ASSESSMENT: 1. 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 Hypomagnesemia resolved PLAN: -Continue ICU management -Continue supportive care -Continue pain medication as needed -Follow up on fluid creatinine from LUZMA drain -Keep patient nothing by mouth except for ice chips, popsicles, meds -Continue IV fluids -keep Eliquis on hold -Pathology results pending -DVT prophylaxis subcu heparin and GI prophylaxis Pepcid Physician Donor Relations Officer note has been reviewed by physician. Signing provider agrees with the documented findings, assessment, and plan of care. Objective - Vital Signs Vital signs: Vital Signs Temp 97.7 F 10/04/21 04:00 Pulse 82 10/04/21 13:00 Resp 22 10/04/21 13:00 BP 114/66 10/04/21 13:00 Pulse Ox 94 L 10/04/21 13:00 Intake & Output 10/03/21 10/04/21 10/04/21 18:59 06:59 18:59 Intake Total 2825 1700 425 Output Total 760 755 465 Balance 2065 945 -40 Weight 57.4 kg 72 kg Intake: IV 2825 1700 375 D5-0.45% NaCl with KCl 1000 1500 375 20Meq/l 1,000 ml @ 125 mls/hr IV .Q8H [facility] Rx#: [id number] Lactated Ringers 1,000 ml 1000 @ 999 mls/hr IV .Q1H1M [facility] Rx#:[id number] Piperacillin-Tazobactam 3 100 100 .375 gm In Sodium Chloride 0.9% 100 ml @ 25 mls/hr IVPB Q8H [facility] Rx#: [id number] Sodium Chloride 0.9% 500 625 ml 500 ml @ 999 mls/hr IV .Q31M [facility] Rx#:[id number] metroNIDAZOLE-NS PMX 500 100 100 mg In Saline 1 100ml.bag @ 100 mls/hr IVPB Q8H [facility] Rx#:[id number] Intake, IV Titration 50 Amount Dextrose 5%-0.45% NaCl 1, 50 000 ml @ 50 mls/hr IV . Q20H [facility] Rx#:[id number] Output: Drainage 355 365 135 Right Abdomen 355 365 135 Urine 395 390 290 Stool 40 Urine/Stool Mix 10 Other: Voiding Method Indwelling Catheter Indwelling Catheter Indwelling Catheter # Bowel Movements 1 - Labs CBC & Chem 7: 10/04/21 08:02 10/04/21 08:02 Labs: Abnormal Lab Results - Last 24 Hours (Table) 10/03/21 10/03/21 10/04/21 Range/Units 16:37 19:44 08:02 RBC 3.24 L (3.80-5.40) m/uL Hgb 10.7 L (11.4-16.0) gm/dL MCV 108.6 H (80.0-100.0) fL MCHC 30.5 L (31.0-37.0) g/dL Lymphocytes # 0.8 L (1.0-4.8) k/uL Potassium (3.5-5.1) mmol/L Chloride (98-107) mmol/L Carbon Dioxide (22-30) mmol/L POC Glucose (mg/dL) 127 H 108 H (75-99) mg/dL Calcium (8.4-10.2) mg/dL 10/04/21 Range/Units 08:02 RBC (3.80-5.40) m/uL Hgb (11.4-16.0) gm/dL MCV (80.0-100.0) fL MCHC (31.0-37.0) g/dL Lymphocytes # (1.0-4.8) k/uL Potassium 5.2 H (3.5-5.1) mmol/L Chloride 114 H (98-107) mmol/L Carbon Dioxide 21 L (22-30) mmol/L POC Glucose (mg/dL) (75-99) mg/dL Calcium 7.5 L (8.4-10.2) mg/dL Microbiology - Last 24 Hours (Table) 10/02/21 00:37 Urine Culture - Final Urine,Voided
[2021-10-04] MEDS: HYDROmorphone 1 MG/ML 1 ML SYRINGE IVP PRN ×2 (15:16→18:37)
[2021-10-04 16:11] LABS: Glucose,Whole Blood 99 mg/dL (75-99)
--- NOTE | 2021-10-04 16:57 | P.PN ---
Subjective Patient is resting in a chair A. fib/ventricle rates are elevated or 110-120 beats a minute Blood pressure is a lot better than yesterday On examination heart sounds are irregular no murmurs Breath sounds are clear Impression A. fib with RVR Low blood pressure yesterday and the the dose of metoprolol was decreased to 25 mg twice daily Plan suggest increasing metoprolol to 25 mg 3 times a day for better rate control Objective - Vital Signs Vital signs: Vital Signs Temp 98.2 F 10/04/21 14:00 Pulse 84 10/04/21 14:00 Resp 18 10/04/21 14:00 BP 114/66 10/04/21 14:00 Pulse Ox 95 10/04/21 14:00 Intake & Output 10/03/21 10/04/21 10/04/21 18:59 06:59 18:59 Intake Total 2825 1700 425 Output Total 760 755 465 Balance 2065 945 -40 Weight 57.4 kg 72 kg Intake: IV 2825 1700 375 D5-0.45% NaCl with KCl 1000 1500 375 20Meq/l 1,000 ml @ 125 mls/hr IV .Q8H [facility] Rx#: [id number] Lactated Ringers 1,000 ml 1000 @ 999 mls/hr IV .Q1H1M [facility] Rx#:[id number] Piperacillin-Tazobactam 3 100 100 .375 gm In Sodium Chloride 0.9% 100 ml @ 25 mls/hr IVPB Q8H [facility] Rx#: [id number] Sodium Chloride 0.9% 500 625 ml 500 ml @ 999 mls/hr IV .Q31M [facility] Rx#:[id number] metroNIDAZOLE-NS PMX 500 100 100 mg In Saline 1 100ml.bag @ 100 mls/hr IVPB Q8H [facility] Rx#:[id number] Intake, IV Titration 50 Amount Dextrose 5%-0.45% NaCl 1, 50 000 ml @ 50 mls/hr IV . Q20H [facility] Rx#:[id number] Output: Drainage 355 365 135 Right Abdomen 355 365 135 Urine 395 390 290 Stool 40 Urine/Stool Mix 10 Other: Voiding Method Indwelling Catheter Indwelling Catheter Indwelling Catheter # Bowel Movements 1 - Labs CBC & Chem 7: 10/04/21 08:02 10/04/21 08:02 Labs: Abnormal Lab Results - Last 24 Hours (Table) 10/03/21 10/04/21 10/04/21 Range/Units 19:44 08:02 08:02 RBC 3.24 L (3.80-5.40) m/uL Hgb 10.7 L (11.4-16.0) gm/dL MCV 108.6 H (80.0-100.0) fL MCHC 30.5 L (31.0-37.0) g/dL Lymphocytes # 0.8 L (1.0-4.8) k/uL Potassium 5.2 H (3.5-5.1) mmol/L Chloride 114 H (98-107) mmol/L Carbon Dioxide 21 L (22-30) mmol/L POC Glucose (mg/dL) 108 H (75-99) mg/dL Calcium 7.5 L (8.4-10.2) mg/dL
--- NOTE | 2021-10-04 19:06 | P.PN ---
Subjective 66-year-old female presents to the emergency department with a chief complaint of abdominal pain. Patient states her symptoms started 10 days ago. Describes it as generalized abdominal pain with no radiation. No back pain. She states she had intermittent nausea for the first couple days that has since resolved. No fever, chills, vomiting, or diarrhea. Normal bowel movements with last bowel movement yesterday, nonbloody. Patient has been tolerating oral intake okay however states her appetite has decreased. No burning with urination, increased urinary frequency/urgency, or blood in the urine. No chest pain or shortness of breath. Patient does have history of atrial fibrillation on Eliquis. No upper respiratory symptoms or recent sick contacts. No previous abdominal surgeries. Patient does admit to tobacco use with [id number] history. She denies family history of aneurysm. CT is significant for a suspected partial large bowel obstruction secondary to eccentric bowel wall thickening of the sigmoid colon which is suspicious for primary malignancy. EKG revealed atrial fibrillation with rapid ventricular response; patient was started on IV Cardizem Patient continues to have abdominal distention and pain; no bowel movements; general surgery on board and planning to repeat abdominal x-ray with tentative plan for partial colectomy tomorrow Patient remains in atrial fibrillation with controlled ventricular response at this time; no anticoagulation therapy for anticipated surgery in next 24-48 h ours; echocardiogram reveals normal LV function and no significant valvular abnormalities; cardiology on board and recommending to continue with Lasix 20 mg daily for mild fluid overload; Resume the care of the patient 10/01/2021. Patient awake and alert. She still with abdominal complaint and pain and discomfort with no bowel movement. Surgery team are planning for exploratory laparotomy with possible diverting colostomy and possible sigmoid resection. Emergency Management Director team on the case also for preop evaluation and also for her A. fib. Currently rate controlled on metoprolol and oral Lasix. She is on D5 half-normal saline at 50 mL per hour, Flagyl and Zosyn. Labs look stable. 10/02/2021 Patient with sigmoid mass status post exploratory laparotomy with Sigmoid colectomy with end colostomy, Partial cystectomy, Left salpingectomy, Appendectomy, Repair of left ureterPeriod secondary to left ureteral injury during surgical resection. Patient vomited by urologist and had left ureteral repair. Currently has a Mcfarland catheter was recommendation to stay for 2 weeks. Post operatively patient got intubated. Patient currently remains on mechanical ventilation She remains on Zosyn, Eliquis on hold. Patient is started on Pepcid and subcu heparin.. She received also normal saline boluses 10/03/2021 Today patient in the ICU status post extubation. She is postoperative day #2. She still nothing by mouth, awake but very weak. Her colostomy back in a Place, no bowel movement yet. Also Mcfarland catheter with PATRICE drain with more than 200 of serosanguineous fluid. Her pathology is pending, Eliquis still on hold, patient kept on Flagyl and Zosyn and IV fluids. Patient received 1 L of normal saline for hypertension, also her metoprolol dose lowered to 25 mg. 10/04/2021 Patient clinically is improving gradually, her pain at the surgery site is country of, she is fully awake and oriented, she does not look in distress. Her colostomy tube in the left lower quadrant abdomen with some small amounts light brown stool. Mcfarland catheter in place with yellow urine. A follow-up for stent urologist recommended CT of the abdomen without contrast was showing mild positioning of the double J stent, CT urogram is ordered and is pending, neurology following closely. Other that clinically she is doing generally well, improving slowly. She kept nothing by mouth with surgery team following him closely as well. Patient's can go to the general medical floor today. Continue with Flagyl and Zosyn, D5 half-normal saline at 50 mL/h and metoprolol increased to 25 g 3 times a day today. She is also a small dose of oral Lasix while Eliquis still on hold Objective - Vital Signs Vital signs: Vital Signs Temp 97.7 F 10/04/21 04:00 Pulse 92 10/04/21 07:00 Resp 14 10/04/21 07:00 BP 106/64 10/04/21 07:00 Pulse Ox 95 10/04/21 07:00 Intake & Output 10/03/21 10/04/21 10/04/21 18:59 06:59 18:59 Intake Total 2825 1700 125 Output Total 760 755 75 Balance 2065 945 50 Weight 57.4 kg 72 kg Intake: IV 2825 1700 125 D5-0.45% NaCl with KCl 1000 1500 125 20Meq/l 1,000 ml @ 125 mls/hr IV .Q8H [facility] Rx#: [id number] Lactated Ringers 1,000 ml 1000 @ 999 mls/hr IV .Q1H1M [facility] Rx#:[id number] Piperacillin-Tazobactam 3 100 100 .375 gm In Sodium Chloride 0.9% 100 ml @ 25 mls/hr IVPB Q8H [facility] Rx#: [id number] Sodium Chloride 0.9% 500 625 ml 500 ml @ 999 mls/hr IV .Q31M [facility] Rx#:[id number] metroNIDAZOLE-NS PMX 500 100 100 mg In Saline 1 100ml.bag @ 100 mls/hr IVPB Q8H [facility] Rx#:[id number] Output: Drainage 355 365 35 Right Abdomen 355 365 35 Urine 395 390 40 Urine/Stool Mix 10 Other: Voiding Method Indwelling Catheter Indwelling Catheter # Bowel Movements 1 - Exam GENERAL: The patient is alert and oriented x3, not in any acute distress. Well developed, well nourished. HEENT: Pupils are round and equally reacting to light. EOMI. No scleral icterus. No conjunctival pallor. Normocephalic, atraumatic. No pharyngeal erythema. No thyromegaly. CARDIOVASCULAR: S1 and S2 present. No murmurs, rubs, or gallops. PULMONARY: Chest is clear to auscultation, no wheezing or crackles. -ABDOMEN: Soft, mild generalized tenderness and mild generalized distention, normoactive bowel sounds. No palpable organomegaly. Colostomy tube in place, Mcfarland catheter MUSCULOSKELETAL: No joint swelling or deformity. EXTREMITIES: No cyanosis, clubbing, or pedal edema. NEUROLOGICAL: Gross neurological examination did not reveal any focal deficits. SKIN: No rashes. no petechiae. - Labs CBC & Chem 7: 10/04/21 08:02 10/04/21 08:02 Labs: Abnormal Lab Results - Last 24 Hours (Table) 10/03/21 10/03/21 10/03/21 Range/Units 05:42 11:23 16:37 Neutrophils # (Manual) 9.10 H (1.3-7.7) k/uL Lymphocytes # (Manual) 0.71 L (1.0-4.8) k/uL Myelocytes # (Manual) 0.10 H (0) k/uL Potassium (3.5-5.1) mmol/L Chloride (98-107) mmol/L Carbon Dioxide (22-30) mmol/L POC Glucose (mg/dL) 122 H 127 H (75-99) mg/dL Calcium (8.4-10.2) mg/dL 10/03/21 10/04/21 Range/Units 19:44 08:02 Neutrophils # (Manual) (1.3-7.7) k/uL Lymphocytes # (Manual) (1.0-4.8) k/uL Myelocytes # (Manual) (0) k/uL Potassium 5.2 H (3.5-5.1) mmol/L Chloride 114 H (98-107) mmol/L Carbon Dioxide 21 L (22-30) mmol/L POC Glucose (mg/dL) 108 H (75-99) mg/dL Calcium 7.5 L (8.4-10.2) mg/dL Microbiology - Last 24 Hours (Table) 10/02/21 00:37 Urine Culture - Final Urine,Voided Assessment and Plan Assessment: -Sigmoid wall thickening suspicious for sigmoid months with partial colon obstruction. status post exploratory laparotomy with Sigmoid colectomy with end colostomy, Partial cystectomy, Left salpingectomy, Appendectomy, Repair of left ureterPeriod secondary to left ureteral injury during surgical resection -A. fib and RVR. -Hypertension -Hyperlipidemia -History of COPD, not in activation Plan: this is a pleasant 66 years old female. Going for bowel surgery for her possible colon mass. Also with A. fib. Continue with Surgery team on the case. Continue with Flagyl and Zosyn and gentle hydration. Her surgery team Pulmonary team. Patient status post extubation Cardiology team on the case, continue with metoprolol. Continue gentle hydration Neurology team on the case Labs and medication were reviewed.. Continue same treatment. Continue with symptomatic treatment. Resume home medication. Monitor lytes and vitals. DVT and GI prophylaxis. Further recommendations as per clinical course of the patient DVT prophylaxis: Subcu heparin. Eliquis is on hold GI Prophylaxis: Pepcid PT/OT: Deferred Prognosis is guarded
--- NOTE | 2021-10-04 19:33 | CT ---
EXAMINATION TYPE: CT urogram wo/w con CT DLP: 1390.9 mGycm, Automated exposure control for dose reduction was used. DATE OF EXAM: 10/04/2021 5:08 PM COMPARISON: . CT abdomen pelvis most recent from 10/04/2020 CLINICAL INDICATION:Female, 66 years old with history of Assess for ureteral injury , Access for uret eral injury TECHNIQUE: Urogram with unenhanced, nephrographic and excretory phase imaging of the abdomen and pelvis using tw o doses of 100 cc of IV contrast Isovue 300 contrast. Coronal and sagittal reformats were performed. One or more CT dose reduction strategies were utilized during this examination. 2D and 3D reconstruct ions are performed to assist visualization of the urinary tract on a separate workstation. FINDINGS: GENITOURINARY: RIGHT KIDNEY AND URETER: No calculi. No hydronephrosis or hydroureter. No renal mass or other lesions . No urothelial lesions: no filling defect, dilation, stricture or wall thickening.Scattered areas of cortical thinning likely from remote injuries. LEFT KIDNEY AND URETER: Left ureteral stent appears to be terminating within the inferior vena cava p roximally and distally within the urinary bladder. These findings are similar prior CT same day. Scat tered areas of cortical thinning likely from remote injuries. No calculi. No hydronephrosis or hydrou reter. No renal mass or other lesions. No urothelial lesions: no filling defect, dilation, stricture or wall thickening. On delayed imaging there is excreted IV contrast seen along the left ureter into a lesser extent near the distal right ureter. The remainder of the exam is unchanged from CT abdomen pelvis same day. IMPRESSION: 1. Extraluminal excreted IV contrast most pronounced along the left ureter with some also appearing n ear the distal right ureter on delayed imaging. This is favored to represent a left ureteral injury w ith layering in the pelvis. Underlying right ureteral injury is not entirely excluded. 2. Left ureteral stent proximal pigtail within the IVC as seen on prior. 3. Please see dedicated CT from earlier in the day for additional findings regarding the abdomen and pelvis.
[2021-10-04 19:59] LABS: Glucose,Whole Blood 93 mg/dL (75-99)
[2021-10-04] MEDS: ATORVASTATIN 40 MG TAB PO SCH (20:42)
[2021-10-05] MEDS ORDERED: HYDROmorphone 1 MG/ML 1 ML SYRINGE ONE (02:35)
[2021-10-05] MEDS: PIPERACILLIN-TAZOBACTAM 3.375 GM in SODIUM CHLORIDE 0.9% 100 ML IVPB SCH ×3 (06:19→22:11)
[2021-10-05 07:06] LABS: Glucose,Whole Blood 101 mg/dL (75-99)
[2021-10-05] MEDS: metroNIDAZOLE-NS PMX 500 MG in SALINE 1 100ML.BAG IVPB SCH ×3 (07:19→22:11)
[2021-10-05 09:12] LABS: HCT 32.6 % (37.2-46.3); HGB 9.8 g/dL (12.0-15.0); MCHC 30.1 g/dL (32.0-37.0); MCV 106.5 fL (80.0-97.0); Mean Platelet Volume 9.7 fL (9.5-12.2); NRBC Per 100 WBC 0 /100 WBCS (0.0-0.0); Platelet Count 199 X 10*3/uL (140-440); RBC 3.06 X 10*6/uL (4.10-5.20); RDW 13.9 % (11.5-14.5); WBC 8.22 X 10*3/uL (4.50-10.00)
[2021-10-05] MEDS: FAMOTIDINE 20 MG/2 ML VIAL IV SCH (09:29)
[2021-10-05] MEDS: METOPROLOL TARTRATE 25 MG TAB PO SCH ×3 (09:29→22:11)
[2021-10-05 09:32] LABS: African American GFR (CKD) 59.7 (60.0-200.0); Anion Gap 5.1 mmol/L (10.00-18.00); BUN/Creat Ratio 7.73 Ratio (12.00-20.00); Blood Urea Nitrogen 8.5 mg/dL (9.0-27.0); Calcium 7.9 mg/dL (8.7-10.3); Carbon Dioxide 22.9 mmol/L (20.0-27.5); Magnesium 1.8 mg/dL (1.5-2.4); Non-African American GFR(CKD) 51.5 (60.0-200.0); Potassium 4.8 mmol/L (3.5-5.5)
[2021-10-05] MEDS: HYDROmorphone 1 MG/ML 1 ML SYRINGE IVP PRN ×3 (09:45→22:22)
[2021-10-05] MEDS: INSULIN ASPART (NovoLOG) 100 UNIT/ML VIAL SQ SCH ×4 (09:49→22:07)
[2021-10-05] MEDS: HEPARIN SODIUM,PORCINE/PF 5,000 UNIT/0.5 ML SYRINGE SQ SCH ×2 (09:49→16:03)
--- NOTE | 2021-10-05 09:49 | P.PN ---
Subjective Progress Note Date: 10/05/21 This is a 66-year-old female patient with past a history of smoking, COPD, hypertension, hyperlipidemia, chronic A. fib, coronary artery disease, who presented to the emergency department on 09/28/2021 with chief complaint of abdominal pain which had been ongoing for 10 days prior to presentation. Patien familia was also complaining of intermittent nausea, but no fever, no chills, no vomiting or diarrhea. Denied any blood in the stools. CT of abdomen and pelvis with contrast in the emergency department showed partial large bowel obstruction secondary to extensive bowel wall thickening of the sigmoid colon that was suspicious for primary malignancy. There was a string dilation of the colon and small bowel, there was mild cardiomegaly and hepatic steatosis. Patient had a prior colonoscopy 3 years ago. Admission labs showed normal white count of 4.6, hemoglobin was 16.2, INR was 1.2, electrolytes and renal profile were unremarkable, troponin was negative at less than 0.012, proBNP was 4290, lipase was within normal limits at 75, LFTs were within normal limits, urinalysis showed 1+ ketones, rare bacteria, negative glucose, no clear evidence of infection. Patient recently had a heart catheterization in August 2021 which showed total occlusion of the RCA with intermediate disease involving the left coronary system, and preserved left ventricular systolic function. Patient was started on IV fluids, and antibiotics and surgical consultation was obtained. She was taken to surgery on 10/01/2021, by Dr. Carranza and Dr. Luevano and underwent exploratory laparotomy, sigmoid colectomy with end colostomy, partial cystectomy, left salpingectomy, appendectomy, and repair of left ureter. In the recovery room patient was extubated however she needed to be reintubated in the recovery room in view of difficulty breathing, hypoxia, and insufficient respiratory effort. She was admitted to the intensive care unit following a recent intubation. This morning she remains intubated and on mechanical ventilator, with assist control mode of ventilation with a rate of 18, tidal volume is 350, FiO2 of 40%, and PEEP of 5. Today's blood gas shows a pO2 of 76, pCO2 47, and pH of 7.32 this was done and the above-mentioned ventilator settings, today's chest x-ray showing mild infiltrate and atelectasis at the right lung base which is improved compared old exam, and there is clearing of the pulmonary congestion. Patient is currently on D5 half-normal saline with 20 of potassium at a rate of 125, and improving and at 25 mics per kilo per minute, she did require 2-1/2 L bolus last night for low urine output. She is not requiring any vasopressor support right now. Today's labs have been reviewed White blood cell count is 13, hemoglobin is 12.3, sodium is 137, potassium is 4.1, chloride is 109, BUN is 14, creatinine is 1.07. Urinalysis was repeated showing large amount of blood, moderate leuks, and 15 of white blood cells, patient is on Zosyn for empiric antibiotic coverage. Her surgical biopsy results are still pending. Abdominal incision is covered with a surgical dressing, clean dry and intact, well approximated, patient has left lower quadrant colostomy with no stool or gas. On 10/03/2021 patient seen in follow-up in the intensive care unit, she was successfully weaned and extubated yesterday on 10/02/2021 on postoperative day #1. Today she is awake and alert, oriented 3, she is on 2 L oxygen and pulse ox is 99%, she is breathing comfortably, follow-up chest x-ray is pending but patient denies any shortness of breath, no cough, she been afebrile through the night, blood pressures have been on the lower side or marginal, she is in atrial fibrillation which is chronic for her, and at times she is slightly tachycardic with a rate in the low 100s BPM. IV fluids are D5 half-normal saline with 20 of potassium at a rate of 125 ML per hour, no nasal pressors. She remains on Zosyn for empiric antibiotic coverage. Abdomen has postoperative tenderness, left lower quadrant colostomy is producing brown stool. Lung sounds are clear, diminished, incentive spirometer effort is 1000 mL today. Urine output through the night has been marginal, in the order of 25-30 ML per hour, blood pressures have been marginal, patient's Lasix was placed on hold, recent echocardiogram showed LV function with EF of 45-50%. Today's labs have been reviewed, white blood cell count is 10.1, hemoglobin is 11.1, platelet count is 193, sodium is 137, potassium is 4.5, chloride is 113, CO2 is 18, BUN is 14, creatinine is 1.14. Patient has been tolerating ice chips, and popsicles, but she has had very poor oral intake and she states she does not feel like taking anything by mouth. No nausea or vomiting. Oral membranes are very dry, no lower extremity edema, lung sounds are clear. Abdominal incision is clean dry and intact, covered with a dressing, LUZMA drain is in place draining serosanguineous output and there has been 595 mL of output from the LUZMA drain over the last 24 hours. On 10/04/2021 patient seen in follow-up in the intensive care unit, she is awake and alert, in no acute distress. She is on 2 L of oxygen satting 95-100%, denies any respiratory difficulty, she needs encouragement and reminded using incentive spirometry, she is achieving 750 on it today. She is tolerating ice chips, she is a bit nauseous, but has had no vomiting. She is on D5 half-normal saline with 20 of potassium at a rate of 130 ML per hour, her colostomy is producing soft brown stool. She remains nothing by mouth except for ice chips and popsicles. LUZMA drain is producing large amount of serous output, patient has produced 720 ML of serous output from the LUZMA drain, there was a question regarding possibility of urine in the LUZMA drain, and for that reason LUZMA drainage was sent for urine creatinine. Abdominal x-ray was obtained today showing left ureteral stent with proximal and partially uncoiled, and abnormally positioned, displaced to the middle skin sahil at the pelvis and surgical drain some borderline distended small bowel loops, and development of some patchy basilar atelectasis versus infiltrate. Today's labs have been reviewed, white blood cell count is 8.9, hemoglobin is 10.7, sodium is 138, potassium is 5.2, chloride is 114, CO2 is 21, BUN is 10 and creatinine is 1.04. Urine output is in the order of 30-40 mL per hour, and this morning it is improved up to 50-100 ML per hour. Patient is developing some mild trace pretibial edema, we'll cut back IV fluids and switch it to D5 half-normal saline at a rate of 50 ML per hour The patient is seen today 10/05/2021 in follow-up on the regular medical floor. She is currently sitting up in bed. Awake and alert in no acute distress. She denies any worsening shortness of breath, cough or congestion. She is maintaining good O2 saturations in the 90s on 2 L/m per nasal cannula. She has normal saline running at 50 MLS per hour. She remains nothing by mouth. She is working with the incentive spirometer. Follow up computed tomography scan of the abdomen revealed malpositioned double-J stent with the upper end likely within the left renal vein/IVC. Suspect injury along the left ureterovesical junction with multiple pelvic air bubbles which could be related to acute postoperative changes. Follow-up urogram revealed extraluminal excreted IV contrast most pronounced along the left ureter with some also. Near the distal right ureter. Favored to represent a left ureteral injury with layering in the pelvis. Underlying right ureteral injury not excluded. Left ureteral stent proximal pigtail within the IVC is seen in prior. Urology is aware and planning possible ureterureterostomy revision. Urine culture had revealed no growth. White count 8.2. Hemoglobin 9.8. Platelets 199. Sodium 141. Potassium 4.8. BUN 8.5. Creatinine 1.1. She is continued on Flagyl and Zosyn. Heparin for DVT prophylaxis. D5W with half-normal saline at 50 MLS per hour. Objective - Vital Signs Vital signs: Vital Signs Temp 97 F L 10/05/21 05:00 Pulse 107 H 10/05/21 05:00 Resp 16 10/05/21 05:00 BP 110/64 10/05/21 08:03 Pulse Ox 98 10/05/21 05:00 Intake & Output 10/04/21 10/05/21 10/05/21 18:59 06:59 18:59 Intake Total 425 1700 Output Total 1055 90 70 Balance -630 1610 -70 Intake: IV 375 1700 D5-0.45% NaCl with KCl 375 1500 20Meq/l 1,000 ml @ 125 mls/hr IV .Q8H [facility] Rx#: [id number] Piperacillin-Tazobactam 3 100 .375 gm In Sodium Chloride 0.9% 100 ml @ 25 mls/hr IVPB Q8H [facility] Rx#: [id number] metroNIDAZOLE-NS PMX 500 100 mg In Saline 1 100ml.bag @ 100 mls/hr IVPB Q8H [facility] Rx#:[id number] Intake, IV Titration 50 Amount Dextrose 5%-0.45% NaCl 1, 50 000 ml @ 50 mls/hr IV . Q20H [facility] Rx#:[id number] Output: Drainage 225 90 70 Right Abdomen 225 90 70 Urine 790 Stool 40 Other: Voiding Method Indwelling Catheter Indwelling Catheter - Exam GENERAL EXAM: Awake and alert oriented 3, pleasant 66-year-old female, on 2 L of oxygen and the pulse ox of 98%, comfortable in no apparent distress. HEAD: Normocephalic/atraumatic. EYES: Normal reaction of pupils, equal size. Conjunctiva pink, sclera white. NOSE: Clear with pink turbinates. THROAT: No erythema or exudates. NECK: No masses, no JVD, no thyroid enlargement, no adenopathy. CHEST: No chest wall deformity. Symmetrical expansion. LUNGS: Equal air entry with no crackles, wheeze, rhonchi or dullness. CVS: Regular rate and rhythm, normal S1 and S2, no gallops, no murmurs, no rubs ABDOMEN: Soft, nontender. Left lower quadrant colostomy in place producing soft brown stool, Mid abdominal incision below the umbilicus is clean dry and intact, sahil are intact, covered with surgical dressing, LUZMA drain with moderate penny unt of serosanguineous drainage, compressed and draining. No hepatosplenomegaly, normal bowel sounds, no guarding or rigidity. EXTREMITIES: No clubbing, no edema, no cyanosis, 2+ pulses and upper and lower extremities. MUSCULOSKELETAL: Muscle strength and tone normal. SPINE: No scoliosis or deformity SKIN: No rashes CENTRAL NERVOUS SYSTEM: Awake and alert, oriented 3 No focal deficits, tone is normal in all 4 extremities. - Labs CBC & Chem 7: 10/05/21 05:50 10/05/21 05:50 Labs: Abnormal Lab Results - Last 24 Hours (Table) 10/05/21 10/05/21 10/05/21 Range/Units 05:50 05:50 07:05 RBC 3.06 L (4.10-5.20) X 10*6/uL Hgb 9.8 L (12.0-15.0) g/dL Hct 32.6 L (37.2-46.3) % MCV 106.5 H (80.0-97.0) fL MCHC 30.1 L (32.0-37.0) g/dL Chloride 113 H (96-109) mmol/L Anion Gap 5.10 L (10.00-18.00) mmol/L BUN 8.5 L (9.0-27.0) mg/dL Est GFR (CKD-EPI)AfAm 59.7 L (60.0-200.0) Est GFR (CKD-EPI)NonAf 51.5 L (60.0-200.0) BUN/Creatinine Ratio 7.73 L (12.00-20.00) Ratio POC Glucose (mg/dL) 101 H (75-99) mg/dL Calcium 7.9 L (8.7-10.3) mg/dL Assessment and Plan Assessment: 1 Acute hypoxic and hypercapnic respiratory failure following surgical procedure possibly related to procedural sedation and history of COPD, and patient had to be reintubated in the recovery room following exploratory la parotomy, sigmoid colectomy, partial cystectomy, left salpingectomy, appendectomy and repair of the left ureter on 10/01/2021. 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 Suspect injury along the left ureterovesicular junction with multiple pelvic air bubbles possibly postop changes. Urogram revealed extraluminal exc reted IV contrast most pronounced along the left ureter with some also appearing near the distal right ureter. Favored to represent a left ureteral injury with layering in the pelvis. Underlying right ureteral injury not excluded. 4 Hypotension, related to hypovolemia, improved with IV fluid boluses 5 History of COPD 6 Former smoker 7 Coronary artery disease 8 Chronic A. fib on Eliquis which is currently on hold 9 Hypertension 10 Hyperlipidemia Plan: The patient was seen and evaluated Computed tomography scan of the abdomen and pelvis and urogram, labs reviewed May require intervention, urology is on the case Encouraged regarding the increased use the incentive spirometer Increase her activity as tolerated Continued on Zosyn and Flagyl for now Follow-up chest x-ray in a.m. We will continue to follow I have personally seen and examined the patient, performed the documentation and the assessment and plan as written. Number of minutes spent on the visit: 10.
[2021-10-05 11:18] LABS: Basophils # (A) 0.03 X 10*3/uL (0.00-0.10); Basophils % (A) 0.4 %; Eosinophils # (A) 0.14 X 10*3/uL (0.04-0.35); Eosinophils % (A) 1.7 %; Immature Grans, Automated 2.1 %; Lymphocytes # (A) 0.98 X 10*3/uL (0.90-5.00); Lymphocytes % (A) 11.9 %; Monocytes # (A) 0.46 X 10*3/uL (0.20-1.00); Monocytes % (A) 5.6 %; Neutrophils # (A) 6.44 X 10*3/uL (1.80-7.70); Neutrophils % (A) 78.3 %
[2021-10-05 11:19] LABS: Acanthocytes 2+
[2021-10-05 11:47] LABS: Glucose,Whole Blood 94 mg/dL (75-99)
--- NOTE | 2021-10-05 12:18 | P.PN ---
Subjective Progress Note Date: 10/05/21 HISTORY OF PRESENT ILLNESS: This is a pleasant 66-year-old female past medical history significant for persistent atrial fibrillation s/p previous cardioversion in 2019 and recently i n 07/2021, chronic nicotine dependence, COPD, coronary artery disease (09/20/21 heart catheterization revealing chronic total occlusion of the RCA with intermediate disease involving the left coronary system 45% stenosis ostial LAD. She follows with Dr. Perez. We have been asked to see in consultation for chest pain and atrial fibrillation with RVR. Patient presents to the emergency department with abdominal pain. CT of the abdomen and pelvis revealed partial large bowel obstruction secondary to eccentric bowel wall thickening of the sigmoid colon. Echocardiogram revealed an EF of 4550 percent, mild aortic regurgitation, mild mitral regurgitation, mild pulmonary hypertension. She is status post exploratory laparotomy, sigmoid colectomy with end colostomy, partial cystectomy, left salpingectomy, appendectomy and repair of left ureter. She remains NPO except for medications. Eliquis remains on hold per general surgery recommendations. She remains in atrial fibrillation with mildly unco ntrolled ventricular rates. Blood pressure low 100s. PHYSICAL EXAM: VITAL SIGNS: Reviewed. GENERAL: Well-developed in no acute distress. NECK: Supple. No JVD or thyromegaly LUNGS: Respirations even and unlabored. Lungs essentially clear to auscultation bilaterally. HEART: Irregular rate and rhythm. S1 and S2 heard. EXTREMITIES: Normal range of motion. No clubbing or cyanosis. Peripheral pulses intact. 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 bladder and left salpinx status post exploratory laparotomy, sigmoid colectomy with end colostomy, partial cystectomy, left salpingectomy, appendectomy and repair of left ureter CT scan revealing malposition of double-J stent Persistent atrial fibrillation with previous cardioversion COPD Coronary artery disease Nicotine dependence Hypertension Hyperlipidemia PLAN: Continue current medications Anticoagulation remains hold per general surgery recommendations Resume patient's home dose of digoxin Resume telemetry monitoring Further recommendations pending patient course Nurse practitioner note has been reviewed by physician. Signing provider agrees with the documented findings, assessment, and plan of care. Objective - Vital Signs Vital signs: Vital Signs Temp 97 F L 10/05/21 05:00 Pulse 107 H 10/05/21 05:00 Resp 16 10/05/21 05:00 BP 110/64 10/05/21 08:03 Pulse Ox 98 10/05/21 05:00 Intake & Output 10/04/21 10/05/21 10/05/21 18:59 06:59 18:59 Intake Total 425 1700 Output Total 1055 90 140 Balance -630 1610 -140 Intake: IV 375 1700 D5-0.45% NaCl with KCl 375 1500 20Meq/l 1,000 ml @ 125 mls/hr IV .Q8H [facility] Rx#: [id number] Piperacillin-Tazobactam 3 100 .375 gm In Sodium Chloride 0.9% 100 ml @ 25 mls/hr IVPB Q8H [facility] Rx#: [id number] metroNIDAZOLE-NS PMX 500 100 mg In Saline 1 100ml.bag @ 100 mls/hr IVPB Q8H [facility] Rx#:[id number] Intake, IV Titration 50 Amount Dextrose 5%-0.45% NaCl 1, 50 000 ml @ 50 mls/hr IV . Q20H [facility] Rx#:[id number] Output: Drainage 225 90 140 Right Abdomen 225 90 140 Urine 790 Stool 40 Other: Voiding Method Indwelling Catheter Indwelling Catheter - Labs CBC & Chem 7: 10/05/21 05:50 10/05/21 05:50 Labs: Abnormal Lab Results - Last 24 Hours (Table) 10/05/21 10/05/21 10/05/21 Range/Units 05:50 05:50 07:05 RBC 3.06 L (4.10-5.20) X 10*6/uL Hgb 9.8 L (12.0-15.0) g/dL Hct 32.6 L (37.2-46.3) % MCV 106.5 H (80.0-97.0) fL MCHC 30.1 L (32.0-37.0) g/dL Immature Gran # 0.17 H (0.00-0.04) X 10*3/uL Chloride 113 H (96-109) mmol/L Anion Gap 5.10 L (10.00-18.00) mmol/L BUN 8.5 L (9.0-27.0) mg/dL Est GFR (CKD-EPI)AfAm 59.7 L (60.0-200.0) Est GFR (CKD-EPI)NonAf 51.5 L (60.0-200.0) BUN/Creatinine Ratio 7.73 L (12.00-20.00) Ratio POC Glucose (mg/dL) 101 H (75-99) mg/dL Calcium 7.9 L (8.7-10.3) mg/dL
--- NOTE | 2021-10-05 12:53 | P.PN ---
Subjective 66-year-old female presents to the emergency department with a chief complaint of abdominal pain. Patient states her symptoms started 10 days ago. Describes it as generalized abdominal pain with no radiation. No back pain. She states she had intermittent nausea for the first couple days that has since resolved. No fever, chills, vomiting, or diarrhea. Normal bowel movements with last bowel movement yesterday, nonbloody. Patient has been tolerating oral intake okay however states her appetite has decreased. No burning with urination, increased urinary frequency/urgency, or blood in the urine. No chest pain or shortness of breath. Patient does have history of atrial fibrillation on Eliquis. No upper respiratory symptoms or recent sick contacts. No previous abdominal surgeries. Patient does admit to tobacco use with [id number] history. She denies family history of aneurysm. CT is significant for a suspected partial large bowel obstruction secondary to eccentric bowel wall thickening of the sigmoid colon which is suspicious for primary malignancy. EKG revealed atrial fibrillation with rapid ventricular response; patient was started on IV Cardizem Patient continues to have abdominal distention and pain; no bowel movements; general surgery on board and planning to repeat abdominal x-ray with tentative plan for partial colectomy tomorrow Patient remains in atrial fibrillation with controlled ventricular response at this time; no anticoagulation therapy for anticipated surgery in next 24-48 h ours; echocardiogram reveals normal LV function and no significant valvular abnormalities; cardiology on board and recommending to continue with Lasix 20 mg daily for mild fluid overload; Resume the care of the patient 10/01/2021. Patient awake and alert. She still with abdominal complaint and pain and discomfort with no bowel movement. Surgery team are planning for exploratory laparotomy with possible diverting colostomy and possible sigmoid resection. Multiple Punch Press Operator team on the case also for preop evaluation and also for her A. fib. Currently rate controlled on metoprolol and oral Lasix. She is on D5 half-normal saline at 50 mL per hour, Flagyl and Zosyn. Labs look stable. 10/02/2021 Patient with sigmoid mass status post exploratory laparotomy with Sigmoid colectomy with end colostomy, Partial cystectomy, Left salpingectomy, Appendectomy, Repair of left ureterPeriod secondary to left ureteral injury during surgical resection. Patient vomited by urologist and had left ureteral repair. Currently has a Mcfarland catheter was recommendation to stay for 2 weeks. Post operatively patient got intubated. Patient currently remains on mechanical ventilation She remains on Zosyn, Eliquis on hold. Patient is started on Pepcid and subcu heparin.. She received also normal saline boluses 10/03/2021 Today patient in the ICU status post extubation. She is postoperative day #2. She still nothing by mouth, awake but very weak. Her colostomy back in a Place, no bowel movement yet. Also Mcfarland catheter with PATRICE drain with more than 200 of serosanguineous fluid. Her pathology is pending, Eliquis still on hold, patient kept on Flagyl and Zosyn and IV fluids. Patient received 1 L of normal saline for hypertension, also her metoprolol dose lowered to 25 mg. 10/04/2021 Patient clinically is improving gradually, her pain at the surgery site is country of, she is fully awake and oriented, she does not look in distress. Her colostomy tube in the left lower quadrant abdomen with some small amounts light brown stool. Mcfarland catheter in place with yellow urine. A follow-up for stent urologist recommended CT of the abdomen without contrast was showing mild positioning of the double J stent, CT urogram is ordered and is pending, neurology following closely. Other that clinically she is doing generally well, improving slowly. She kept nothing by mouth with surgery team following him closely as well. Patient's can go to the general medical floor today. Continue with Flagyl and Zosyn, D5 half-normal saline at 50 mL/h and metoprolol increased to 25 g 3 times a day today. She is also a small dose of oral Lasix while Eliquis still on hold 10/05/2021 Patient remains nothing by mouth, colostomy with no bowel movement or gas. Mcfarland catheter in place. She remains on D5 half-normal saline at 50 mL per hour She looks tired but no distress. Hemodynamically stable. Labs reviewed with WBC 8.2, creatinine 1.1. CT urogram: Extraluminal secreted IV contrast most pronounced along the left ureter with some also appearing near the distal right ureter on delayed imaging. This is favored to represent a left ureteral injury with layering in the pelvis. Right ureteral injury is not entirely exclude it.A left ureteral stent is seen. urologist on the case Objective - Vital Signs Vital signs: Vital Signs Temp 97 F L 10/05/21 05:00 Pulse 107 H 10/05/21 05:00 Resp 16 10/05/21 05:00 BP 110/64 10/05/21 08:03 Pulse Ox 98 10/05/21 05:00 Intake & Output 10/04/21 10/05/21 10/05/21 18:59 06:59 18:59 Intake Total 425 1700 Output Total 1055 90 140 Balance -630 1610 -140 Intake: IV 375 1700 D5-0.45% NaCl with KCl 375 1500 20Meq/l 1,000 ml @ 125 mls/hr IV .Q8H PALLAVI Rx#: [id number] Piperacillin-Tazobactam 3 100 .375 gm In Sodium Chloride 0.9% 100 ml @ 25 mls/hr IVPB Q8H PALLAVI Rx#: [id number] metroNIDAZOLE-NS PMX 500 100 mg In Saline 1 100ml.bag @ 100 mls/hr IVPB Q8H PALLAVI Rx#:[id number] Intake, IV Titration 50 Amount Dextrose 5%-0.45% NaCl 1, 50 000 ml @ 50 mls/hr IV . Q20H PALLAVI Rx#:[id number] Output: Drainage 225 90 140 Right Abdomen 225 90 140 Urine 790 Stool 40 Other: Voiding Method Indwelling Catheter Indwelling Catheter - Exam GENERAL: The patient is alert and oriented x3, not in any acute distress. Well developed, well nourished. HEENT: Pupils are round and equally reacting to light. EOMI. No scleral icterus. No conjunctival pallor. Normocephalic, atraumatic. No pharyngeal erythema. No thyromegaly. CARDIOVASCULAR: S1 and S2 present. No murmurs, rubs, or gallops. PULMONARY: Chest is clear to auscultation, no wheezing or crackles. -ABDOMEN: Soft, mild generalized tenderness and mild generalized distention, normoactive bowel sounds. No palpable organomegaly. Colostomy tube in place, Mcfarland catheter MUSCULOSKELETAL: No joint swelling or deformity. EXTREMITIES: No cyanosis, clubbing, or pedal edema. NEUROLOGICAL: Gross neurological examination did not reveal any focal deficits. SKIN: No rashes. no petechiae. - Labs CBC & Chem 7: 10/05/21 05:50 10/05/21 05:50 Labs: Abnormal Lab Results - Last 24 Hours (Table) 10/05/21 10/05/21 10/05/21 Range/Units 05:50 05:50 07:05 RBC 3.06 L (4.10-5.20) X 10*6/uL Hgb 9.8 L (12.0-15.0) g/dL Hct 32.6 L (37.2-46.3) % MCV 106.5 H (80.0-97.0) fL MCHC 30.1 L (32.0-37.0) g/dL Chloride 113 H (96-109) mmol/L Anion Gap 5.10 L (10.00-18.00) mmol/L BUN 8.5 L (9.0-27.0) mg/dL Est GFR (CKD-EPI)AfAm 59.7 L (60.0-200.0) Est GFR (CKD-EPI)NonAf 51.5 L (60.0-200.0) BUN/Creatinine Ratio 7.73 L (12.00-20.00) Ratio POC Glucose (mg/dL) 101 H (75-99) mg/dL Calcium 7.9 L (8.7-10.3) mg/dL Assessment and Plan Assessment: -Sigmoid wall thickening suspicious for sigmoid months with partial colon obstru ction. status post exploratory laparotomy with Sigmoid colectomy with end colostomy, Partial cystectomy, Left salpingectomy, Appendectomy, Repair of left ureterPeriod secondary to left ureteral injury during surgical resection -A. fib and RVR. -Hypertension -Hyperlipidemia -History of COPD, not in activation Plan: this is a pleasant 66 years old female. Going for bowel surgery for her possible colon mass. Also with A. fib. Continue with Flagyl and Zosyn and gentle hydration. Pulmonary team consult, Continue with Surgery team on the case. Cardiology team on the case, continue with metoprolol. Continue gentle hydration urology team on the case Labs and medication were reviewed.. Continue same treatment. Continue with symptomatic treatment. Resume home medication. Monitor lytes and vitals. DVT and GI prophylaxis. Further recommendations as per clinical course of the patient DVT prophylaxis: Subcu heparin. Eliquis is on hold GI Prophylaxis: Pepcid PT/OT: Deferred Prognosis is guarded
[2021-10-05] MEDS: DIGOXIN 125 MCG TAB PO SCH (13:12)
[2021-10-05] MEDS: DEXTROSE 5%-0.45% NACL 1,000 ML IV SCH ×2 (13:15→22:10)
--- NOTE | 2021-10-05 13:37 | P.PN ---
Subjective Progress Note Date: 10/05/21 CHIEF COMPLAINT: Sigmoid colon tumor HISTORY OF PRESENT ILLNESS: Postoperative day #4 status post exploratory laparotomy, sigmoid colectomy with end colostomy, partial cystectomy, left salpingectomy, appendectomy and repair of left ureter. Patient was transferred out of the ICU yesterday to regular medical floor. She is scheduled for urology procedure today for malposition of the ureter stent. Patient complains of abdominal pain. Reports is controlled with pain medication. Ostomy does have stool present and some serosanguineous drainage. LUZMA drain is serous in color 70 mL reported. Afebrile. Heart rate 107 WBC is 8.22 hemoglobin 9.8 platelets 199 sodium 141 potassium 4.8 creatinine 1.1 magnesium 1.8 Patient seen and examined with Dr. sams PHYSICAL EXAM: VITAL SIGNS: Reviewed. GENERAL: Well-developed in no acute distress. HEENT: No sclera icterus. Extraocular movements grossly intact. Moist buccal mucosa. Head is atraumatic, normocephalic. ABDOMEN: Soft. mildly Distended. Mild tenderness with palpation. Ostomy with stool present. Stoma beefy red. Incision site clean dry and intact NEUROLOGIC: Alert and oriented. Cranial nerves II through XII grossly intact. ASSESSMENT: 1. 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 Hypomagnesemia resolved PLAN: -Urology procedure today -Continue supportive care -Continue pain medication as needed -Follow up on fluid creatinine from LUZMA drain -Keep patient nothing by mouth except for ice chips, popsicles, meds -Continue IV fluids -keep Eliquis on hold -Pathology results pending -DVT prophylaxis subcu heparin and GI prophylaxis Pepcid Physician Electronic Court Recorder note has been reviewed by physician. Signing provider agrees with the documented findings, assessment, and plan of care. Objective - Vital Signs Vital signs: Vital Signs Temp 97 F L 10/05/21 05:00 Pulse 107 H 10/05/21 05:00 Resp 16 10/05/21 05:00 BP 110/64 10/05/21 08:03 Pulse Ox 98 10/05/21 05:00 Intake & Output 10/04/21 10/05/21 10/05/21 18:59 06:59 18:59 Intake Total 425 1700 Output Total 1055 90 260 Balance -630 1610 -260 Intake: IV 375 1700 D5-0.45% NaCl with KCl 375 1500 20Meq/l 1,000 ml @ 125 mls/hr IV .Q8H PALLAVI Rx#: [id number] Piperacillin-Tazobactam 3 100 .375 gm In Sodium Chloride 0.9% 100 ml @ 25 mls/hr IVPB Q8H PALLAVI Rx#: [id number] metroNIDAZOLE-NS PMX 500 100 mg In Saline 1 100ml.bag @ 100 mls/hr IVPB Q8H PALLAVI Rx#:[id number] Intake, IV Titration 50 Amount Dextrose 5%-0.45% NaCl 1, 50 000 ml @ 50 mls/hr IV . Q20H PALLAVI Rx#:[id number] Output: Drainage 225 90 260 Right Abdomen 225 90 260 Urine 790 Stool 40 Other: Voiding Method Indwelling Catheter Indwelling Catheter Indwelling Catheter - Labs CBC & Chem 7: 10/05/21 05:50 10/05/21 05:50 Labs: Abnormal Lab Results - Last 24 Hours (Table) 10/05/21 10/05/21 10/05/21 Range/Units 05:50 05:50 07:05 RBC 3.06 L (4.10-5.20) X 10*6/uL Hgb 9.8 L (12.0-15.0) g/dL Hct 32.6 L (37.2-46.3) % MCV 106.5 H (80.0-97.0) fL MCHC 30.1 L (32.0-37.0) g/dL Immature Gran # 0.17 H (0.00-0.04) X 10*3/uL Chloride 113 H (96-109) mmol/L Anion Gap 5.10 L (10.00-18.00) mmol/L BUN 8.5 L (9.0-27.0) mg/dL Est GFR (CKD-EPI)AfAm 59.7 L (60.0-200.0) Est GFR (CKD-EPI)NonAf 51.5 L (60.0-200.0) BUN/Creatinine Ratio 7.73 L (12.00-20.00) Ratio POC Glucose (mg/dL) 101 H (75-99) mg/dL Calcium 7.9 L (8.7-10.3) mg/dL
[2021-10-05] MEDS ORDERED: IV FLUID CONTINUATION 1,000 ML IV ONE (14:48)
[2021-10-05] MEDS ORDERED: METOPROLOL TARTRATE 5 MG/5 ML VIAL IVP ONE ×2 (15:34→19:12)
[2021-10-05] MEDS ORDERED: ROCURONIUM 10 MG/ML (5 ML VIAL) IV ONE ×2 (15:34)
[2021-10-05] MEDS ORDERED: SUCCINYLCHOLINE CHLORIDE 100 MG/5 ML SYR IV ONE (15:34)
[2021-10-05] MEDS ORDERED: FUROSEMIDE 10 MG/ML 2 ML VIAL ONE (15:34)
[2021-10-05] MEDS ORDERED: MIDAZOLAM 2 MG/2 ML VIAL ONE (15:34)
[2021-10-05] MEDS ORDERED: fentaNYL (PF) 50 MCG/ML 2 ML AMP ONE (15:34)
[2021-10-05] MEDS ORDERED: HYDROmorphone (PF) 1 MG/ML ONE (15:34)
[2021-10-05] MEDS ORDERED: ETOMIDATE 2 MG/ML 10 ML VIAL ONE (15:34)
[2021-10-05] MEDS ORDERED: ONDANSETRON 4 MG/2 ML VIAL ONE (15:34)
[2021-10-05] MEDS ORDERED: NEOSTIGMINE 1 MG/ML 10 ML VIAL ONE (15:34)
[2021-10-05] MEDS ORDERED: GLYCOPYRROLATE 0.2 MG/ML 2 ML VIAL ONE (15:34)
[2021-10-05] MEDS ORDERED: LIDOCAINE 2% INJ 20 MG/ML (2 ML VIAL) ONE (15:34)
[2021-10-05] MEDS ORDERED: PHENYLEPHRINE-0.9% NACL SYG 1,000 MCG/10 ML SYRINGE ONE (15:34)
[2021-10-05] MEDS ORDERED: HEPARIN SODIUM,PORCINE 5,000 UNIT/ML 1 ML VIAL ONE (15:34)
[2021-10-05] MEDS ORDERED: METHYLENE BLUE 10 MG/ML (10 ML VIAL) ONE (15:34)
[2021-10-05] MEDS ORDERED: LACTATED RINGERS 1,000 ML IV ONE ×2 (15:38→17:36)
[2021-10-05 16:10] VITALS: BMI 27.2
--- NOTE | 2021-10-05 18:08 | P.PN ---
Progress Note - Text Had a prolonged discussion with the patient and her this morning about the finding from the CT urogram. Which showed persistent urine leak, and it appears that the proximal end of the stent is not in the kidney, there is a concern could be an the gonadal veins versus the retroperitoneal space. Discussed given the persistent urine leak on CT urogram, and the proximal end of the stent not being within the collecting system I recommend proceeding to the OR for revision. I discussed with her at that point we will attempt to redo a ureteroureterostomy, but on CT scan it appears that the level of transection to the ureter is higher than what initially was thought, and if I'm not able to join the 2 ends of the ureters together at that point we will proceed with clipping of the ureter this would be followed by an nephrostomy tube. She will require a definitive repair repair at a later date in that case. Discussed also potential extending the incision to allow mobilization of the kidney to allow for the performance of the anastomosis. Discussed the risk and benefit of surgery discussed the risk of complication discussed even with the repair there is potential scarring and breakdown. At this point she was agreeable for a exposure laparotomy and attempt revision of a ureteroureterostomy and possible ureteral clipping.
--- NOTE | 2021-10-05 18:19 | P.OP ---
Date of Procedure: 10/05/21 Preoperative Diagnosis: Left ureteral injury Postoperative Diagnosis: Same Procedure(s) Performed: Explaratory laparotomy, Revision of the left ureteroureterostomy and stent exchange on the left Implants: 6-Ukrainian by 28 cm stent in the left ureter Anesthesia: TRAVON Surgeon: Victor M Luevano Veterinary Technician Assistant #1: Yury Fonseca Estimated Blood Loss (ml): 100 Pathology: other Condition: stable Disposition: PACU Indications for Procedure: This is 66-year-old female that underwent a sigmoid resection, case was, located by left ureteral injury. She underwent a ureteroureterostomy on that day. Patient had persistent high output from the drain. Underwent a CT urogram showed evidence of persistent leak from the proximal ureter, and showed the stent appears to be outside the kidney. Had a prolonged discussion with the patient and her this morning about the finding from the CT urogram. Which showed persistent urine leak, and it appears that the proximal end of the stent is not in the kidney, there is a concern could be an the gonadal veins versus the retroperitoneal space. Discussed given the persistent urine leak on CT urogram, and the proximal end of the stent not being within the collecting system I recommend proceeding to the OR for revision. I discussed with her at that point we will attempt to redo a ureteroureterostomy, but on CT scan it appears that the level of transection to the ureter is higher than what initially was thought, and if I'm not able to join the 2 ends of the ureters together at that point we will proceed with clipping of the ureter this would be followed by an nephrostomy tube. She will require a definitive repair repair at a later date in that case. Discussed also potential extending the incision to allow mobilization of the kidney to allow for the performance of the anastomo sis. Discussed the risk and benefit of surgery discussed the risk of complication discussed even with the repair there is potential scarring and breakdown. At this point she was agreeable for a explanatory laparotomy and attempt revision of a ureteroureterostomy and possible ureteral clipping. Description of Procedure: Patient was brought to the operating room, general anesthesia was induced. She was prepped and draped in sterile fashion and placed in supine position. The sahil from the previous incisions were removed. Next the fascial stitch was removed. Next the fascia was opened, and the incision was extended superiorly to allow for better exposure. Inspection of the abdomen showed no abnormality. Next the Bookwalter was placed. The bowel was retracted to allow to the exposure of the retroperitoneum. The previous ureteroureterostomy was visualized. Next the the peritoneum was incised further along the previous site of anastomosis. Further dissection revealed a tubular structure more medially, along the proximal aspect of the anastomosis. Next the tubular structure was observed and there was evidence of peristalsis, and urine reflux. This was confirmed to be the ureter. At this time the edge of the ureter was debrided. At this point the previous ureteroureterostomy anastomosis was transected. The distal end of the ureter was debrided. Next silk ties were placed along the proximal end of the previous area of ureteroureterostomy and the stent was removed prior to performing that. Next the 2 ends of the ureters were spatulated. Next ureteroureterostomy was performed using 5-0 Vicryl's in running fashion. Apex through the anastomosis and sensor wire was placed into the proximal end of the ureter. And the stent was passed over. A return of clear urine was obtained. Next the wire was passed into the distal end of the ureter and the stent was passed over. And the anastomosis was completed. The anastomosis was observed and there was no evidence of urine leak and it appeared to be watertight. Next the a 10-Ukrainian flat LUZMA was placed through the left lower quadrant and placed in the pelvis. Next the Bookwalter was released. An inspection of the peritoneum showed no evidence of bowel injury. Next the fascia was closed using 0 PDS in running fashion. Next the skin was closed with sahil. The drain was secured using 2-0 nylon. Sterile dressing was placed. Patient tolerated the procedure was taken to recovery in stable condition
[2021-10-05 18:45] LABS: Glucose,Whole Blood 94 mg/dL (75-99)
--- NOTE | 2021-10-05 20:23 | P.PN ---
Subjective Progress Note Date: 10/05/21 Principal diagnosis: Mass Status post day #4 exploratory laparotomy, sigmoid colectomy with end colostomy, partial cystectomy, left salpingectomy, appendectomy and repair of left ureter. Patient was transferred out of the ICU to regular medical floor. Need of uretal stent repositioning today Objective - Vital Signs Vital signs: Vital Signs Temp 97.7 F 10/05/21 13:00 Pulse 86 10/05/21 13:00 Resp 16 10/05/21 13:00 BP 114/62 10/05/21 13:00 Pulse Ox 99 10/05/21 13:00 Intake & Output 10/04/21 10/05/21 10/05/21 18:59 06:59 18:59 Intake Total 425 1700 Output Total 1055 90 260 Balance -630 1610 -260 Intake: IV 375 1700 D5-0.45% NaCl with KCl 375 1500 20Meq/l 1,000 ml @ 125 mls/hr IV .Q8H PALLAVI Rx#: [id number] Piperacillin-Tazobactam 3 100 .375 gm In Sodium Chloride 0.9% 100 ml @ 25 mls/hr IVPB Q8H PALLAVI Rx#: [id number] metroNIDAZOLE-NS PMX 500 100 mg In Saline 1 100ml.bag @ 100 mls/hr IVPB Q8H PALLAVI Rx#:[id number] Intake, IV Titration 50 Amount Dextrose 5%-0.45% NaCl 1, 50 000 ml @ 50 mls/hr IV . Q20H PALLAVI Rx#:[id number] Output: Drainage 225 90 260 Right Abdomen 225 90 260 Urine 790 Stool 40 Other: Voiding Method Indwelling Catheter Indwelling Catheter Indwelling Catheter - Exam - Constitutional General appearance: Present: average body habitus, cooperative, mild distress - EENT Eyes: Present: anicteric sclerae, EOMI ENT: Present: hearing grossly normal - Respiratory Respiratory: bilateral: CTA - Cardiovascular Rhythm: regular Heart sounds: normal: S1, S2 Abnormal Heart Sounds: Absent: systolic murmur, diastolic murmur, rub, S3 Gallop, S4 Gallop, click, other - Peripheral edema leg Peripheral Edema: bilateral: Trace - Gastrointestinal Gastrointestinal Comment(s): Abdominal bandages in place, no unusual drainage noted, no unusual swelling or bruising noted of the abdomen General gastrointestinal: Present: soft - Integumentary Integumentary: Present: pale - Musculoskeletal Musculoskeletal: Present: generalized weakness - Psychiatric Psychiatric: Present: A&O x's 3, appropriate affect, intact judgment & insight - Labs CBC & Chem 7: 10/05/21 05:50 10/05/21 05:50 Labs: Abnormal Lab Results - Last 24 Hours (Table) 10/05/21 10/05/21 10/05/21 Range/Units 05:50 05:50 07:05 RBC 3.06 L (4.10-5.20) X 10*6/uL Hgb 9.8 L (12.0-15.0) g/dL Hct 32.6 L (37.2-46.3) % MCV 106.5 H (80.0-97.0) fL MCHC 30.1 L (32.0-37.0) g/dL Immature Gran # 0.17 H (0.00-0.04) X 10*3/uL Chloride 113 H (96-109) mmol/L Anion Gap 5.10 L (10.00-18.00) mmol/L BUN 8.5 L (9.0-27.0) mg/dL Est GFR (CKD-EPI)AfAm 59.7 L (60.0-200.0) Est GFR (CKD-EPI)NonAf 51.5 L (60.0-200.0) BUN/Creatinine Ratio 7.73 L (12.00-20.00) Ratio POC Glucose (mg/dL) 101 H (75-99) mg/dL Calcium 7.9 L (8.7-10.3) mg/dL Assessment and Plan Plan: - Imaging and Cardiology Abdominal x-ray: report reviewed Assessment and Plan (1) Colonic mass Current Visit: Yes Status: Acute Priority: High Code(s): K63.89 - OTHER SPECIFIED DISEASES OF INTESTINE SNOMED Code(s): 355588758 Plan: Postoperative day #4 status post exploratory laparotomy, sigmoid colectomy with end colostomy, partial cystectomy, left salpingectomy, appendectomy and repair of left ureter. Patient was transferred out of the ICU yesterday to regular medical floor. Recommendation for adjuvant chemotherapy to reduce the risk of recurrence, necessary because of the size/invasiveness of her tumor. Plan is to f/u in 4-6 weeks post op, review diagnosis, prognosis and treatment rationales again and allow pt opportunity to make a decision. No treatment would begin prior to adequate healing from surgery. Pt questions were answered. F/U appt in chart.
[2021-10-05 21:07] LABS: Glucose,Whole Blood 80 mg/dL (75-99)
[2021-10-05] MEDS: ATORVASTATIN 40 MG TAB PO SCH (22:11)
[2021-10-06] MEDS: metroNIDAZOLE-NS PMX 500 MG in SALINE 1 100ML.BAG IVPB SCH ×2 (05:01→14:22)
[2021-10-06] MEDS: HYDROmorphone 0.5 MG/0.5 ML SYRINGE IVP PRN (05:01)
[2021-10-06] MEDS: PIPERACILLIN-TAZOBACTAM 3.375 GM in SODIUM CHLORIDE 0.9% 100 ML IVPB SCH ×2 (05:01→15:11)
[2021-10-06 07:08] LABS: Glucose,Whole Blood 106 mg/dL (75-99)
--- NOTE | 2021-10-06 08:06 | XR ---
EXAMINATION TYPE: XR chest 1V portable DATE OF EXAM: 10/06/2021 Comparison: 05/05/2022 Clinical History: 66-year-old female Atelectasis follow-up, recent bowel surgery. Findings: Heart borderline enlarged. Increasing moderate right and small left pleural effusions with bibasilar opacities. Continued interstitial change. Atherosclerotic arch calcifications. Impression: Increasing moderate right and small left pleural effusions with adjacent atelectasis and/or consolida tion. Possible background mild CHF/pulmonary vascular congestion.
[2021-10-06 08:59] LABS: HCT 33.7 % (37.2-46.3); HGB 10.6 g/dL (12.0-15.0); MCH 32.5 pg (27.0-32.0); MCHC 31.5 g/dL (32.0-37.0); MCV 103.4 fL (80.0-97.0); Mean Platelet Volume 9.6 fL (9.5-12.2); NRBC Per 100 WBC 0 /100 WBCS (0.0-0.0); Platelet Count 233 X 10*3/uL (140-440); RBC 3.26 X 10*6/uL (4.10-5.20); RDW 13.6 % (11.5-14.5); Reticulocyte % 1.73 % (0.10-1.80); WBC 17.44 X 10*3/uL (4.50-10.00)
[2021-10-06] MEDS: INSULIN ASPART (NovoLOG) 100 UNIT/ML VIAL SQ SCH ×4 (09:03→21:06)
[2021-10-06] MEDS: METOPROLOL TARTRATE 25 MG TAB PO SCH ×3 (09:04→21:04)
[2021-10-06] MEDS: FAMOTIDINE 20 MG/2 ML VIAL IV SCH (09:04)
[2021-10-06] MEDS: DIGOXIN 125 MCG TAB PO SCH (09:04)
[2021-10-06] MEDS: HEPARIN SODIUM,PORCINE/PF 5,000 UNIT/0.5 ML SYRINGE SQ SCH ×4 (09:04→23:12)
[2021-10-06] MEDS: HYDROmorphone 1 MG/ML 1 ML SYRINGE IVP PRN ×3 (09:10→19:14)
--- NOTE | 2021-10-06 09:49 | P.PN ---
Subjective HISTORY OF PRESENT ILLNESS: This is a pleasant 66-year-old female past medical history significant for persistent atrial fibrillation s/p previous cardioversion in 2019 and recently in 07/2021, chronic nicotine dependence, COPD, coronary artery disease (09/20/21 heart catheterization revealing chronic total occlusion of the RCA with intermediate disease involving the left coronary system 45% stenosis ostial LAD. She follows with Dr. Perez. We have been asked to see in consultation for chest pain and atrial fibrillation with RVR. Patient presents to the emergency department with abdominal pain. CT of the abdomen and pelvis revealed partial large bowel obstruction secondary to eccentric bowel wall thickening of the sigmoid colon. Echocardiogram revealed an EF of 4550 percent, mild aortic regurgitation, mild mitral regurgitation, mild pulmonary hypertension. She is status post exploratory laparotomy, sigmoid colectomy with end colostomy, partial cystectomy, left salpingectomy, appendectomy and repair of left ureter. She remains NPO except for medications. Eliquis remains on hold per general surgery recommendations. She remains in atrial fibrillation with mildly uncontrolled ventricular rates. Blood pressure low 100s. 10/06 Patient seen and examined. Patient remains in A. fib with heart rates 100-110 range. She underwent repeat exploratory laparotomy yesterday. Chest x-ray this morning shows increasing moderate right and small left pleural effusions with atelectasis with mild pulmonary vascular congestion. She has remained nothing by mouth. White blood cell count 17.4 today. Hgb 10.6. She was started on digoxin 125 g yesterday as well as the metoprolol 25 3 times a day. Eliquis has been on hold. Receiving IV fluids at 50 mL per hour. PHYSICAL EXAM: VITAL SIGNS: Reviewed. GENERAL: Well-developed in no acute distress. NECK: Supple. No JVD or thyromegaly LUNGS: Respirations even and unlabored. Breath sounds at bases. HEART: Irregular rate and rhythm. S1 and S2 heard. EXTREMITIES: Normal range of motion. No clubbing or cyanosis. Peripheral pulses intact. 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 PLAN: Continue current medications Anticoagulation remains hold per general surgery recommendations Continue home dose of digoxin Continue telemetry monitoring Patient does have bilateral pleural effusions however lysis appears related to atelectasis. She remains nothing by mouth and continue with gentle IV hydration. Check kidney function today. Check repeat chest x-ray tomorrow and if any worsening or worsening clinical status may consider Lasix. Overall mildly tachycardic however appears reactive secondary to pain and recent surgery. Continue with current regimen. Objective - Vital Signs Vital signs: Vital Signs Temp 98.0 F 10/06/21 09:00 Pulse 92 10/06/21 09:00 Resp 16 10/06/21 09:00 BP 98/45 10/06/21 09:00 Pulse Ox 95 10/06/21 09:00 Intake & Output 10/05/21 10/06/21 10/06/21 18:59 06:59 18:59 Intake Total 1350 420 Output Total 610 690 Balance 740 -270 Weight 72 kg Intake: IV 1350 400 Oral 20 Output: Drainage 260 40 Lower Abdomen 40 Right Abdomen 260 Urine 250 650 Estimated Blood Loss 100 Other: Voiding Method Indwelling Catheter Indwelling Catheter - Labs CBC & Chem 7: 10/06/21 06:02 10/05/21 05:50 Labs: Abnormal Lab Results - Last 24 Hours (Table) 10/05/21 10/06/21 10/06/21 Range/Units 05:50 06:02 07:06 WBC 17.44 H (4.50-10.00) X 10*3/uL RBC 3.26 L (4.10-5.20) X 10*6/uL Hgb 10.6 L (12.0-15.0) g/dL Hct 33.7 L (37.2-46.3) % MCV 103.4 H (80.0-97.0) fL MCH 32.5 H (27.0-32.0) pg MCHC 31.5 L (32.0-37.0) g/dL Immature Gran # 0.17 H (0.00-0.04) X 10*3/uL POC Glucose (mg/dL) 106 H (75-99) mg/dL
[2021-10-06 10:22] LABS: Magnesium 1.6 mg/dL (1.5-2.4)
[2021-10-06] MEDS ORDERED: FUROSEMIDE 10 MG/ML 4 ML VIAL IV STA (10:33)
--- NOTE | 2021-10-06 10:33 | P.PN ---
Subjective Progress Note Date: 10/06/21 This is a 66-year-old female patient with past a history of smoking, COPD, hypertension, hyperlipidemia, chronic A. fib, coronary artery disease, who presented to the emergency department on 09/28/2021 with chief complaint of abdominal pain which had been ongoing for 10 days prior to presentation. Patien familia was also complaining of intermittent nausea, but no fever, no chills, no vomiting or diarrhea. Denied any blood in the stools. CT of abdomen and pelvis with contrast in the emergency department showed partial large bowel obstruction secondary to extensive bowel wall thickening of the sigmoid colon that was suspicious for primary malignancy. There was a string dilation of the colon and small bowel, there was mild cardiomegaly and hepatic steatosis. Patient had a prior colonoscopy 3 years ago. Admission labs showed normal white count of 4.6, hemoglobin was 16.2, INR was 1.2, electrolytes and renal profile were unremarkable, troponin was negative at less than 0.012, proBNP was 4290, lipase was within normal limits at 75, LFTs were within normal limits, urinalysis showed 1+ ketones, rare bacteria, negative glucose, no clear evidence of infection. Patient recently had a heart catheterization in August 2021 which showed total occlusion of the RCA with intermediate disease involving the left coronary system, and preserved left ventricular systolic function. Patient was started on IV fluids, and antibiotics and surgical consultation was obtained. She was taken to surgery on 10/01/2021, by Dr. Carranza and Dr. Luevano and underwent exploratory laparotomy, sigmoid colectomy with end colostomy, partial cystectomy, left salpingectomy, appendectomy, and repair of left ureter. In the recovery room patient was extubated however she needed to be reintubated in the recovery room in view of difficulty breathing, hypoxia, and insufficient respiratory effort. She was admitted to the intensive care unit following a recent intubation. This morning she remains intubated and on mechanical ventilator, with assist control mode of ventilation with a rate of 18, tidal volume is 350, FiO2 of 40%, and PEEP of 5. Today's blood gas shows a pO2 of 76, pCO2 47, and pH of 7.32 this was done and the above-mentioned ventilator settings, today's chest x-ray showing mild infiltrate and atelectasis at the right lung base which is improved compared old exam, and there is clearing of the pulmonary congestion. Patient is currently on D5 half-normal saline with 20 of potassium at a rate of 125, and improving and at 25 mics per kilo per minute, she did require 2-1/2 L bolus last night for low urine output. She is not requiring any vasopressor support right now. Today's labs have been reviewed White blood cell count is 13, hemoglobin is 12.3, sodium is 137, potassium is 4.1, chloride is 109, BUN is 14, creatinine is 1.07. Urinalysis was repeated showing large amount of blood, moderate leuks, and 15 of white blood cells, patient is on Zosyn for empiric antibiotic coverage. Her surgical biopsy results are still pending. Abdominal incision is covered with a surgical dressing, clean dry and intact, well approximated, patient has left lower quadrant colostomy with no stool or gas. On 10/03/2021 patient seen in follow-up in the intensive care unit, she was successfully weaned and extubated yesterday on 10/02/2021 on postoperative day #1. Today she is awake and alert, oriented 3, she is on 2 L oxygen and pulse ox is 99%, she is breathing comfortably, follow-up chest x-ray is pending but patient denies any shortness of breath, no cough, she been afebrile through the night, blood pressures have been on the lower side or marginal, she is in atrial fibrillation which is chronic for her, and at times she is slightly tachycardic with a rate in the low 100s BPM. IV fluids are D5 half-normal saline with 20 of potassium at a rate of 125 ML per hour, no nasal pressors. She remains on Zosyn for empiric antibiotic coverage. Abdomen has postoperative tenderness, left lower quadrant colostomy is producing brown stool. Lung sounds are clear, diminished, incentive spirometer effort is 1000 mL today. Urine output through the night has been marginal, in the order of 25-30 ML per hour, blood pressures have been marginal, patient's Lasix was placed on hold, recent echocardiogram showed LV function with EF of 45-50%. Today's labs have been reviewed, white blood cell count is 10.1, hemoglobin is 11.1, platelet count is 193, sodium is 137, potassium is 4.5, chloride is 113, CO2 is 18, BUN is 14, creatinine is 1.14. Patient has been tolerating ice chips, and popsicles, but she has had very poor oral intake and she states she does not feel like taking anything by mouth. No nausea or vomiting. Oral membranes are very dry, no lower extremity edema, lung sounds are clear. Abdominal incision is clean dry and intact, covered with a dressing, LUZMA drain is in place draining serosanguineous output and there has been 595 mL of output from the LUZMA drain over the last 24 hours. On 10/04/2021 patient seen in follow-up in the intensive care unit, she is awake and alert, in no acute distress. She is on 2 L of oxygen satting 95-100%, denies any respiratory difficulty, she needs encouragement and reminded using incentive spirometry, she is achieving 750 on it today. She is tolerating ice chips, she is a bit nauseous, but has had no vomiting. She is on D5 half-normal saline with 20 of potassium at a rate of 130 ML per hour, her colostomy is producing soft brown stool. She remains nothing by mouth except for ice chips and popsicles. LUZMA drain is producing large amount of serous output, patient has produced 720 ML of serous output from the LUZMA drain, there was a question regarding possibility of urine in the LUZMA drain, and for that reason LUZMA drainage was sent for urine creatinine. Abdominal x-ray was obtained today showing left ureteral stent with proximal and partially uncoiled, and abnormally positioned, displaced to the middle skin sahil at the pelvis and surgical drain some borderline distended small bowel loops, and development of some patchy basilar atelectasis versus infiltrate. Today's labs have been reviewed, white blood cell count is 8.9, hemoglobin is 10.7, sodium is 138, potassium is 5.2, chloride is 114, CO2 is 21, BUN is 10 and creatinine is 1.04. Urine output is in the order of 30-40 mL per hour, and this morning it is improved up to 50-100 ML per hour. Patient is developing some mild trace pretibial edema, we'll cut back IV fluids and switch it to D5 half-normal saline at a rate of 50 ML per hour The patient is seen today 10/05/2021 in follow-up on the regular medical floor. She is currently sitting up in bed. Awake and alert in no acute distress. She denies any worsening shortness of breath, cough or congestion. She is maintaining good O2 saturations in the 90s on 2 L/m per nasal cannula. She has normal saline running at 50 MLS per hour. She remains nothing by mouth. She is working with the incentive spirometer. Follow up computed tomography scan of the abdomen revealed malpositioned double-J stent with the upper end likely within the left renal vein/IVC. Suspect injury along the left ureterovesical junction with multiple pelvic air bubbles which could be related to acute postoperative changes. Follow-up urogram revealed extraluminal excreted IV contrast most pronounced along the left ureter with some also. Near the distal right ureter. Favored to represent a left ureteral injury with layering in the pelvis. Underlying right ureteral injury not excluded. Left ureteral stent proximal pigtail within the IVC is seen in prior. Urology is aware and planning possible ureterureterostomy revision. Urine culture had revealed no growth. White count 8.2. Hemoglobin 9.8. Platelets 199. Sodium 141. Potassium 4.8. BUN 8.5. Creatinine 1.1. She is continued on Flagyl and Zosyn. Heparin for DVT prophylaxis. D5W with half-normal saline at 50 MLS per hour. The patient is seen today 10/06/2021 in follow-up on the regular medical floor. She is currently resting fairly comfortable in bed. Awake and alert in no acute distress. She is maintaining O2 saturations in the mid 90s on 2 L/m per nasal cannula. Afebrile. She did undergo a exploratory laparotomy with revision of the left ureteroureterostomy and stent exchange on the left. LUZMA drain in place. Mcfarland catheter remains in place. Currently in a positive balance of 980 ML's. Chest x-ray reveals increasing moderate right and small left pleural effusions with adjacent atelectasis with some background mild CHF/pulmonary vascular congestion. She is currently on Zosyn and Flagyl. White count 17.4. Hemoglobin 10.6. Glucose 106. Iron 13. Transferrin 60.7. Ferritin 292. She is currently on IV fluids of D5.45 at 50 MLS per hour. Objective - Vital Signs Vital signs: Vital Signs Temp 98.0 F 10/06/21 09:00 Pulse 92 10/06/21 09:00 Resp 16 10/06/21 09:00 BP 98/45 10/06/21 09:00 Pulse Ox 95 10/06/21 09:00 Intake & Output 10/05/21 10/06/21 10/06/21 18:59 06:59 18:59 Intake Total 1350 420 Output Total 610 690 Balance 740 -270 Weight 72 kg Intake: IV 1350 400 Oral 20 Output: Drainage 260 40 Lower Abdomen 40 Right Abdomen 260 Urine 250 650 Estimated Blood Loss 100 Other: Voiding Method Indwelling Catheter Indwelling Catheter - Exam GENERAL EXAM: Awake, pleasant 66-year-old female, on 2 L of oxygen and the pulse ox of 95%, comfortable in no apparent distress. HEAD: Normocephalic/atraumatic. EYES: Normal reaction of pupils, equal size. Conjunctiva pink, sclera white. NOSE: Clear with pink turbinates. THROAT: No erythema or exudates. NECK: No masses, no JVD, no thyroid enlargement, no adenopathy. CHEST: No chest wall deformity. Symmetrical expansion. LUNGS: Equal air entry with no crackles, wheeze, rhonchi or dullness. CVS: Regular rate and rhythm, normal S1 and S2, no gallops, no murmurs, no rubs ABDOMEN: Soft, nontender. Left lower quadrant colostomy in place producing soft brown stool, Mid abdominal incision below the umbilicus is clean dry and intact, sahil are intact, covered with surgical dressing, LUZMA drain with serosanguineous drainage, compressed and draining. No hepatosplenomegaly, normal bowel sounds, no guarding or rigidity. EXTREMITIES: No clubbing, no edema, no cyanosis, 2+ pulses and upper and lower extremities. MUSCULOSKELETAL: Muscle strength and tone normal. SPINE: No scoliosis or deformity SKIN: No rashes CENTRAL NERVOUS SYSTEM: Awake and alert, oriented 3. No focal deficits, tone is normal in all 4 extremities. - Labs CBC & Chem 7: 10/06/21 06:02 10/05/21 05:50 Labs: Abnormal Lab Results - Last 24 Hours (Table) 10/05/21 10/06/21 10/06/21 Range/Units 05:50 06:02 06:02 WBC 17.44 H (4.50-10.00) X 10*3/uL RBC 3.26 L (4.10-5.20) X 10*6/uL Hgb 10.6 L (12.0-15.0) g/dL Hct 33.7 L (37.2-46.3) % MCV 103.4 H (80.0-97.0) fL MCH 32.5 H (27.0-32.0) pg MCHC 31.5 L (32.0-37.0) g/dL Immature Gran # 0.17 H (0.00-0.04) X 10*3/uL POC Glucose (mg/dL) (75-99) mg/dL Iron 13 L (50-170) ug/dL Transferrin 68.7 L (204.0-354.0) mg/dL Ferritin 292.0 H (10.0-291.0) ng/mL 10/06/21 Range/Units 07:06 WBC (4.50-10.00) X 10*3/uL RBC (4.10-5.20) X 10*6/uL Hgb (12.0-15.0) g/dL Hct (37.2-46.3) % MCV (80.0-97.0) fL MCH (27.0-32.0) pg MCHC (32.0-37.0) g/dL Immature Gran # (0.00-0.04) X 10*3/uL POC Glucose (mg/dL) 106 H (75-99) mg/dL Iron (50-170) ug/dL Transferrin (204.0-354.0) mg/dL Ferritin (10.0-291.0) ng/mL Assessment and Plan Assessment: 1 Acute hypoxic and hypercapnic respiratory failure following surgical procedure possibly related to procedural sedation and history of COPD, and patient had to be reintubated in the recovery room following exploratory laparotomy, sigmoid colectomy, partial cystectomy, left salpingectomy, appendectomy and repair of the left ureter on 10/01/2021. Returned to the OR on 10/05/2021 for a revision of the left ureteral ureterostomy and stent exchange. Chest x-ray showing some increasing pleural effusion and pulmonary vascular congestion right greater than left. 2 Colon obstruction, related to large colon tumor of the sigmoid colon invading bladder and left salpinx, status post exploratory lap, sigmoid colectomy with end colostomy, partial cystectomy, left salpingectomy, appendectomy, and repair of the left ureter on 10/01/2021 3 Hematuria with computed tomography scan of the abdomen and pelvis revealing a malpositioned double-J stent with the upper end likely within the left renal vein/IVC. Suspect injury along the left ureterovesicular junction with multiple pelvic air bubbles possibly postop changes. Urogram revealed extraluminal excreted IV contrast most pronounced along the left ureter with some also appearing near the distal right ureter. Favored to represent a left ureteral injury with layering in the pelvis. Underlying right ureteral injury not excluded. Returned to the OR on 10/05/2021 for a revision of the left ureteral ureterostomy and stent exchange. 4 Hypotension, related to hypovolemia, improved with IV fluid boluses 5 History of COPD 6 Former smoker 7 Coronary artery disease 8 Chronic A. fib on Eliquis which is currently on hold 9 Hypertension 10 Hyperlipidemia Plan: The patient was seen and evaluated Chest x-ray, labs and medications reviewed Lasix 40 mg IVP 1 today Encouraged regarding the increased use the incentive spirometer Duo-neb inhalations 4 times a day and when necessary Increase her activity as tolerated Continued on Zosyn and Flagyl Follow-up chest x-ray in a.m. We will continue to follow I have personally seen and examined the patient, performed the documentation and the assessment and plan as written. Number of minutes spent on the visit: 10.
[2021-10-06 10:35] LABS: % Iron Saturation 13.1 (12.00-45.00); African American GFR (CKD) 48.8 (60.0-200.0); Albumin 1.7 g/dL (3.8-4.9); Anion Gap 8.6 mmol/L (10.00-18.00); BUN/Creat Ratio 7.38 Ratio (12.00-20.00); Blood Urea Nitrogen 9.6 mg/dL (9.0-27.0); Calcium 7.7 mg/dL (8.7-10.3); Carbon Dioxide 20.4 mmol/L (20.0-27.5); Globulin 1.7 g/dL (1.6-3.3); Non-African American GFR(CKD) 42.1 (60.0-200.0); Potassium 4.9 mmol/L (3.5-5.5); Total Bilirubin 0.3 mg/dL (0.30-1.20); Total Protein 3.4 g/dL (6.2-8.2)
[2021-10-06] MEDS: HYDROcodone/APAP 5-325MG 1 EACH TAB PO PRN (10:45)
[2021-10-06 10:51] LABS: Basophils # (M) 0 X 10*3/uL (0.00-0.10); Eosinophils # (M) 0 X 10*3/uL (0.04-0.35); Lymphocytes # (M) 0.35 X 10*3/uL (0.90-5.00); Neutrophils # (M) 16.39 X 10*3/uL (2.00-8.90); Neutrophils % (M) 94 %
--- NOTE | 2021-10-06 10:57 | P.PN ---
Subjective Progress Note Date: 10/06/21 Underwent revision of a ureteroureterostomy yesterday, having incisional pain. Minimal output from the LUZMA Objective - Vital Signs Vital signs: Vital Signs Temp 98.0 F 10/06/21 09:00 Pulse 92 10/06/21 09:00 Resp 16 10/06/21 09:00 BP 98/45 10/06/21 09:00 Pulse Ox 95 10/06/21 09:00 Intake & Output 10/05/21 10/06/21 10/06/21 18:59 06:59 18:59 Intake Total 1350 420 Output Total 610 690 Balance 740 -270 Weight 72 kg Intake: IV 1350 400 Oral 20 Output: Drainage 260 40 Lower Abdomen 40 Right Abdomen 260 Urine 250 650 Estimated Blood Loss 100 Other: Voiding Method Indwelling Catheter Indwelling Catheter Indwelling Catheter - Constitutional General appearance: Present: mild distress - Gastrointestinal General gastrointestinal: Present: distended, soft, tenderness (Along the incision) - Genitourinary Genitourinary Comment(s): servicing a output Mcfarland hematuric, no clots - Psychiatric Psychiatric: Present: A&O x's 3 - Labs CBC & Chem 7: 10/06/21 06:02 10/06/21 06:02 Labs: Abnormal Lab Results - Last 24 Hours (Table) 10/05/21 10/06/21 10/06/21 Range/Units 05:50 06:02 06:02 WBC 17.44 H (4.50-10.00) X 10*3/uL RBC 3.26 L (4.10-5.20) X 10*6/uL Hgb 10.6 L (12.0-15.0) g/dL Hct 33.7 L (37.2-46.3) % MCV 103.4 H (80.0-97.0) fL MCH 32.5 H (27.0-32.0) pg MCHC 31.5 L (32.0-37.0) g/dL Immature Gran # 0.17 H (0.00-0.04) X 10*3/uL Neutrophils # (Manual) 16.39 H (2.00-8.90) X 10*3/uL Lymphocytes # (Manual) 0.35 L (0.90-5.00) X 10*3/uL Eosinophils # (Manual) 0 L (0.04-0.35) X 10*3/uL Chloride 112 H (96-109) mmol/L Anion Gap 8.60 L (10.00-18.00) mmol/L Est GFR (CKD-EPI)AfAm 48.8 L (60.0-200.0) Est GFR (CKD-EPI)NonAf 42.1 L (60.0-200.0) BUN/Creatinine Ratio 7.38 L (12.00-20.00) Ratio POC Glucose (mg/dL) (75-99) mg/dL Calcium 7.7 L (8.7-10.3) mg/dL Iron 13 L (50-170) ug/dL TIBC 96 L (228-460) ug/dL Transferrin 68.7 L (204.0-354.0) mg/dL Ferritin 292.0 H (10.0-291.0) ng/mL Total Protein 3.4 L (6.2-8.2) g/dL Albumin 1.7 L (3.8-4.9) g/dL Albumin/Globulin Ratio 1.00 L (1.60-3.17) g/dL Vitamin B12 1443.0 H (200.0-944.0) pg/mL 10/06/21 Range/Units 07:06 WBC (4.50-10.00) X 10*3/uL RBC (4.10-5.20) X 10*6/uL Hgb (12.0-15.0) g/dL Hct (37.2-46.3) % MCV (80.0-97.0) fL MCH (27.0-32.0) pg MCHC (32.0-37.0) g/dL Immature Gran # (0.00-0.04) X 10*3/uL Neutrophils # (Manual) (2.00-8.90) X 10*3/uL Lymphocytes # (Manual) (0.90-5.00) X 10*3/uL Eosinophils # (Manual) (0.04-0.35) X 10*3/uL Chloride (96-109) mmol/L Anion Gap (10.00-18.00) mmol/L Est GFR (CKD-EPI)AfAm (60.0-200.0) Est GFR (CKD-EPI)NonAf (60.0-200.0) BUN/Creatinine Ratio (12.00-20.00) Ratio POC Glucose (mg/dL) 106 H (75-99) mg/dL Calcium (8.7-10.3) mg/dL Iron (50-170) ug/dL TIBC (228-460) ug/dL Transferrin (204.0-354.0) mg/dL Ferritin (10.0-291.0) ng/mL Total Protein (6.2-8.2) g/dL Albumin (3.8-4.9) g/dL Albumin/Globulin Ratio (1.60-3.17) g/dL Vitamin B12 (200.0-944.0) pg/mL Assessment and Plan Assessment: S/P revesion of left ureteroureterostomy on 10/05 and cystotomy repair on 10/01 -Keep Mcfarland in place, we'll need to keep in place for 14 days -Stent will stay in for 6 weeks -pain control, will add robaxin and toradol -Ambulate
[2021-10-06 11:46] LABS: Glucose,Whole Blood 116 mg/dL (75-99)
[2021-10-06] MEDS: KETOROLAC 15 MG/ML 1 ML VIAL IVP SCH ×3 (12:04→23:12)
--- NOTE | 2021-10-06 12:54 | P.PN ---
Progress Note - Text Progress Note Date: 10/06/21 Patient feels better. She has some mild complaints of incisional pain. Her LUZMA drainage has improved tremendously since her ureteral Yesterday. On exam vital signs are stable. Abdomen soft. Incisions clean dry intact. Colostomy is functioning.. LUZMA drain has some serosanguineous drainage. Pathology was reviewed. I did discuss this with the patient and her significant other. We will wait for [facility] pathologist to give us a final read. She'll continue to have supportive care.
[2021-10-06] MEDS: DEXTROSE 5%-0.45% NACL 1,000 ML IV SCH (15:11)
[2021-10-06] MEDS: methocarbamoL 750 MG TAB PO SCH ×2 (15:59→21:04)
[2021-10-06 17:27] LABS: Glucose,Whole Blood 133 mg/dL (75-99)
[2021-10-06 20:36] LABS: Glucose,Whole Blood 120 mg/dL (75-99)
--- NOTE | 2021-10-06 20:47 | P.PN ---
Subjective 66-year-old female presents to the emergency department with a chief complaint of abdominal pain. Patient states her symptoms started 10 days ago. Describes it as generalized abdominal pain with no radiation. No back pain. She states she had intermittent nausea for the first couple days that has since resolved. No fever, chills, vomiting, or diarrhea. Normal bowel movements with last bowel movement yesterday, nonbloody. Patient has been tolerating oral intake okay however states her appetite has decreased. No burning with urination, increased urinary frequency/urgency, or blood in the urine. No chest pain or shortness of breath. Patient does have history of atrial fibrillation on Eliquis. No upper respiratory symptoms or recent sick contacts. No previous abdominal surgeries. Patient does admit to tobacco use with [id number] history. She denies family history of aneurysm. CT is significant for a suspected partial large bowel obstruction secondary to eccentric bowel wall thickening of the sigmoid colon which is suspicious for primary malignancy. EKG revealed atrial fibrillation with rapid ventricular response; patient was started on IV Cardizem Patient continues to have abdominal distention and pain; no bowel movements; general surgery on board and planning to repeat abdominal x-ray with tentative plan for partial colectomy tomorrow Patient remains in atrial fibrillation with controlled ventricular response at this time; no anticoagulation therapy for anticipated surgery in next 24-48 h ours; echocardiogram reveals normal LV function and no significant valvular abnormalities; cardiology on board and recommending to continue with Lasix 20 mg daily for mild fluid overload; Resume the care of the patient 10/01/2021. Patient awake and alert. She still with abdominal complaint and pain and discomfort with no bowel movement. Surgery team are planning for exploratory laparotomy with possible diverting colostomy and possible sigmoid resection. [employer] team on the case also for preop evaluation and also for her A. fib. Currently rate controlled on metoprolol and oral Lasix. She is on D5 half-normal saline at 50 mL per hour, Flagyl and Zosyn. Labs look stable. 10/02/2021 Patient with sigmoid mass status post exploratory laparotomy with Sigmoid colectomy with end colostomy, Partial cystectomy, Left salpingectomy, Appendectomy, Repair of left ureterPeriod secondary to left ureteral injury during surgical resection. Patient vomited by urologist and had left ureteral repair. Currently has a Mcfarland catheter was recommendation to stay for 2 weeks. Post operatively patient got intubated. Patient currently remains on mechanical ventilation She remains on Zosyn, Eliquis on hold. Patient is started on Pepcid and subcu heparin.. She received also normal saline boluses 10/03/2021 Today patient in the ICU status post extubation. She is postoperative day #2. She still nothing by mouth, awake but very weak. Her colostomy back in a Place, no bowel movement yet. Also Mcfarland catheter with PATRICE drain with more than 200 of serosanguineous fluid. Her pathology is pending, Eliquis still on hold, patient kept on Flagyl and Zosyn and IV fluids. Patient received 1 L of normal saline for hypertension, also her metoprolol dose lowered to 25 mg. 10/04/2021 Patient clinically is improving gradually, her pain at the surgery site is country of, she is fully awake and oriented, she does not look in distress. Her colostomy tube in the left lower quadrant abdomen with some small amounts light brown stool. Mcfarland catheter in place with yellow urine. A follow-up for stent urologist recommended CT of the abdomen without contrast was showing mild positioning of the double J stent, CT urogram is ordered and is pending, neurology following closely. Other that clinically she is doing generally well, improving slowly. She kept nothing by mouth with surgery team following him closely as well. Patient's can go to the general medical floor today. Continue with Flagyl and Zosyn, D5 half-normal saline at 50 mL/h and metoprolol increased to 25 g 3 times a day today. She is also a small dose of oral Lasix while Eliquis still on hold 10/05/2021 Patient remains nothing by mouth, colostomy with no bowel movement or gas. Mcfarland catheter in place. She remains on D5 half-normal saline at 50 mL per hour She looks tired but no distress. Hemodynamically stable. Labs reviewed with WBC 8.2, creatinine 1.1. CT urogram: Extraluminal secreted IV contrast most pronounced along the left ureter with some also appearing near the distal right ureter on delayed imaging. This is favored to represent a left ureteral injury with layering in the pelvis. Right ureteral injury is not entirely exclude it.A left ureteral stent is seen. urologist on the case 10/06/2021 patient remains clinically same with no significant change, she is tired looking, she still nothing by mouth. Colostomy back still not showing bowel movements today however it has bowel movement yesterday Mcfarland catheter in place. Patient followed closely by urology service Pathology did not show final diagnosis and the specimen was sent to [facility] by pathologist for consultation. Oncology team on the case also. Continue with Zosyn, Flagyl and D5 half-normal saline at 50 mL per hour. Objective - Vital Signs Vital signs: Vital Signs Temp 98.0 F 10/06/21 09:00 Pulse 92 10/06/21 09:00 Resp 16 10/06/21 09:00 BP 98/45 10/06/21 09:00 Pulse Ox 95 10/06/21 09:00 Intake & Output 10/05/21 10/06/21 10/06/21 18:59 06:59 18:59 Intake Total 1350 420 Output Total 610 690 Balance 740 -270 Weight 72 kg Intake: IV 1350 400 Oral 20 Output: Drainage 260 40 Lower Abdomen 40 Right Abdomen 260 Urine 250 650 Estimated Blood Loss 100 Other: Voiding Method Indwelling Catheter Indwelling Catheter Indwelling Catheter - Exam GENERAL: The patient is alert and oriented x3, not in any acute distress. Well developed, well nourished. HEENT: Pupils are round and equally reacting to light. EOMI. No scleral icterus. No conjunctival pallor. Normocephalic, atraumatic. No pharyngeal erythema. No thyromegaly. CARDIOVASCULAR: S1 and S2 present. No murmurs, rubs, or gallops. PULMONARY: Chest is clear to auscultation, no wheezing or crackles. -ABDOMEN: Soft, mild generalized tenderness and mild generalized distention, normoactive bowel sounds. No palpable organomegaly. Colostomy tube in place, Mcfarland catheter MUSCULOSKELETAL: No joint swelling or deformity. EXTREMITIES: No cyanosis, clubbing, or pedal edema. NEUROLOGICAL: Gross neurological examination did not reveal any focal deficits. SKIN: No rashes. no petechiae. - Labs CBC & Chem 7: 10/06/21 06:02 10/06/21 06:02 Labs: Abnormal Lab Results - Last 24 Hours (Table) 10/06/21 10/06/21 10/06/21 Range/Units 06:02 06:02 07:06 WBC 17.44 H (4.50-10.00) X 10*3/uL RBC 3.26 L (4.10-5.20) X 10*6/uL Hgb 10.6 L (12.0-15.0) g/dL Hct 33.7 L (37.2-46.3) % MCV 103.4 H (80.0-97.0) fL MCH 32.5 H (27.0-32.0) pg MCHC 31.5 L (32.0-37.0) g/dL Neutrophils # (Manual) 16.39 H (2.00-8.90) X 10*3/uL Lymphocytes # (Manual) 0.35 L (0.90-5.00) X 10*3/uL Eosinophils # (Manual) 0 L (0.04-0.35) X 10*3/uL Chloride 112 H (96-109) mmol/L Anion Gap 8.60 L (10.00-18.00) mmol/L Est GFR (CKD-EPI)AfAm 48.8 L (60.0-200.0) Est GFR (CKD-EPI)NonAf 42.1 L (60.0-200.0) BUN/Creatinine Ratio 7.38 L (12.00-20.00) Ratio POC Glucose (mg/dL) 106 H (75-99) mg/dL Calcium 7.7 L (8.7-10.3) mg/dL Iron 13 L (50-170) ug/dL TIBC 96 L (228-460) ug/dL Transferrin 68.7 L (204.0-354.0) mg/dL Ferritin 292.0 H (10.0-291.0) ng/mL Total Protein 3.4 L (6.2-8.2) g/dL Albumin 1.7 L (3.8-4.9) g/dL Albumin/Globulin Ratio 1.00 L (1.60-3.17) g/dL Vitamin B12 1443.0 H (200.0-944.0) pg/mL 10/06/21 Range/Units 11:45 WBC (4.50-10.00) X 10*3/uL RBC (4.10-5.20) X 10*6/uL Hgb (12.0-15.0) g/dL Hct (37.2-46.3) % MCV (80.0-97.0) fL MCH (27.0-32.0) pg MCHC (32.0-37.0) g/dL Neutrophils # (Manual) (2.00-8.90) X 10*3/uL Lymphocytes # (Manual) (0.90-5.00) X 10*3/uL Eosinophils # (Manual) (0.04-0.35) X 10*3/uL Chloride (96-109) mmol/L Anion Gap (10.00-18.00) mmol/L Est GFR (CKD-EPI)AfAm (60.0-200.0) Est GFR (CKD-EPI)NonAf (60.0-200.0) BUN/Creatinine Ratio (12.00-20.00) Ratio POC Glucose (mg/dL) 116 H (75-99) mg/dL Calcium (8.7-10.3) mg/dL Iron (50-170) ug/dL TIBC (228-460) ug/dL Transferrin (204.0-354.0) mg/dL Ferritin (10.0-291.0) ng/mL Total Protein (6.2-8.2) g/dL Albumin (3.8-4.9) g/dL Albumin/Globulin Ratio (1.60-3.17) g/dL Vitamin B12 (200.0-944.0) pg/mL Assessment and Plan Assessment: -Sigmoid wall thickening suspicious for sigmoid months with partial colon obstruction. status post exploratory laparotomy with Sigmoid colectomy with end colostomy, Partial cystectomy, Left salpingectomy, Appendectomy, Repair of left ureterPeriod secondary to left ureteral injury during surgical resection -A. fib and RVR. -Hypertension -Hyperlipidemia -History of COPD, not in activation Plan: this is a pleasant 66 years old female. Going for bowel surgery for her possible colon mass. Also with A. fib. Continue with Flagyl and Zosyn and gentle hydration. Pulmonary team consult, Continue with Surgery team on the case. Pathology sent to [facility]: Follow-up results Cardiology team on the case, continue with metoprolol. Continue gentle hydration urology team on the case Labs and medication were reviewed.. Continue same treatment. Continue with symptomatic treatment. Resume home medication. Monitor lytes and vitals. DVT and GI prophylaxis. Further recommendations as per clinical course of the p atient DVT prophylaxis: Subcu heparin. Eliquis is on hold GI Prophylaxis: Pepcid PT/OT: Deferred Prognosis is guarded
[2021-10-06] MEDS: ATORVASTATIN 40 MG TAB PO SCH (21:04)
[2021-10-07] MEDS: KETOROLAC 15 MG/ML 1 ML VIAL IVP SCH ×3 (05:14→18:15)
[2021-10-07] MEDS: DEXTROSE 5%-0.45% NACL 1,000 ML IV SCH ×3 (05:16→20:23)
[2021-10-07 07:27] LABS: Glucose,Whole Blood 122 mg/dL (75-99)
--- NOTE | 2021-10-07 07:35 | XR ---
EXAMINATION TYPE: XR chest 1V portable DATE OF EXAM: 10/07/2021 Comparison: 10/06/2021 Clinical History: 66-year-old female follow-up CHF. History of bowel surgery. Findings: Heart remains enlarged. Atherosclerotic arch calcifications. Ongoing moderate left pleural effusion w ith underlying opacity. Trace left effusion with left basilar opacity showing some improvement. Impression: Similar cardiomegaly with a moderate right pleural effusion with adjacent atelectasis and/or consolid ation. Trace left effusion and left basilar opacity shows some interval improvement.
[2021-10-07] MEDS: INSULIN ASPART (NovoLOG) 100 UNIT/ML VIAL SQ SCH ×4 (08:21→20:50)
[2021-10-07] MEDS: FAMOTIDINE 20 MG/2 ML VIAL IV SCH (08:46)
[2021-10-07] MEDS: HEPARIN SODIUM,PORCINE/PF 5,000 UNIT/0.5 ML SYRINGE SQ SCH ×2 (08:46→15:11)
[2021-10-07] MEDS: METOPROLOL TARTRATE 25 MG TAB PO SCH ×3 (08:46→20:29)
[2021-10-07] MEDS: methocarbamoL 750 MG TAB PO SCH ×3 (08:46→20:29)
[2021-10-07] MEDS: DIGOXIN 125 MCG TAB PO SCH (08:46)
[2021-10-07] MEDS: HYDROcodone/APAP 5-325MG 1 EACH TAB PO PRN ×3 (08:49→20:30)
[2021-10-07 09:16] LABS: Basophils # (A) 0.04 X 10*3/uL (0.00-0.10); Basophils % (A) 0.3 %; Eosinophils # (A) 0.17 X 10*3/uL (0.04-0.35); Eosinophils % (A) 1.3 %; HCT 29.2 % (37.2-46.3); Immature Grans, Automated 1.3 %; Lymphocytes # (A) 1.07 X 10*3/uL (0.90-5.00); Lymphocytes % (A) 8.1 %; MCH 32.4 pg (27.0-32.0); MCHC 30.8 g/dL (32.0-37.0); Magnesium 1.7 mg/dL (1.5-2.4); Monocytes # (A) 0.97 X 10*3/uL (0.20-1.00); Monocytes % (A) 7.4 %; NRBC Per 100 WBC 0 /100 WBCS (0.0-0.0); Neutrophils # (A) 10.76 X 10*3/uL (1.80-7.70); Neutrophils % (A) 81.6 %; Platelet Count 224 X 10*3/uL (140-440); RBC 2.78 X 10*6/uL (4.10-5.20); RDW 13.9 % (11.5-14.5); WBC 13.18 X 10*3/uL (4.50-10.00)
[2021-10-07 09:47] LABS: African American GFR (CKD) 50.2 (60.0-200.0); Anion Gap 6.3 mmol/L (10.00-18.00); BUN/Creat Ratio 9.37 Ratio (12.00-20.00); Blood Urea Nitrogen 11.9 mg/dL (9.0-27.0); Calcium 7.4 mg/dL (8.7-10.3); Carbon Dioxide 21.9 mmol/L (20.0-27.5); Non-African American GFR(CKD) 43.3 (60.0-200.0); Potassium 3.8 mmol/L (3.5-5.5)
--- NOTE | 2021-10-07 10:08 | P.PN ---
Progress Note - Text Progress Note Date: 10/07/21 Patient is resting in bed. She states she feels slightly better. Her colostomy dysfunction. On exam vital signs are stable. Abdomen soft. Incisions clean and intact. LUZMA drain has had minimal output. Status post colonic resection for colonic obstruction secondary to obstructing tumor of colon. Status post repair of ureter. Patient will start on a full liquid diet today.
--- NOTE | 2021-10-07 10:45 | P.PN ---
Subjective Underwent revision of a ureteroureterostomy on 10/05 having incisional pain. Minimal output from the LUZMA, denies any flank pain, creatinine stable at 1.3 urine is blood-tinged Objective - Vital Signs Vital signs: Vital Signs Temp 98.1 F 10/07/21 04:55 Pulse 97 10/07/21 04:55 Resp 20 10/07/21 04:55 BP 100/61 10/07/21 04:55 Pulse Ox 98 10/07/21 04:55 Intake & Output 10/06/21 10/07/21 10/07/21 18:59 06:59 18:59 Intake Total 1310 600 Output Total 400 630 Balance 910 -30 Intake: Intake, IV Titration 950 600 Amount Dextrose 5%-0.45% NaCl 1, 750 600 000 ml @ 75 mls/hr IV . [id number] PALLAVI Rx#:[id number] Piperacillin-Tazobactam 3 100 .375 gm In Sodium Chloride 0.9% 100 ml @ 25 mls/hr IVPB Q8H PALLAVI Rx#: [id number] metroNIDAZOLE-NS PMX 500 100 mg In Saline 1 100ml.bag @ 100 mls/hr IVPB Q8H PALLAVI Rx#:[id number] Oral 360 Output: Drainage 0 30 Lower Abdomen 0 30 Urine 400 600 Other: Voiding Method Indwelling Catheter Indwelling Catheter # Voids 1 - Constitutional General appearance: Present: no acute distress - Gastrointestinal General gastrointestinal: Present: soft, tenderness (Along the incision). Absen t: distended - Genitourinary Genitourinary Comment(s): LUZMA serosanguineous Mcfarland blood-tinged urine - Labs CBC & Chem 7: 10/07/21 05:45 10/07/21 05:45 Labs: Abnormal Lab Results - Last 24 Hours (Table) 10/06/21 10/06/21 10/06/21 Range/Units 06:02 11:45 17:25 WBC (4.50-10.00) X 10*3/uL RBC (4.10-5.20) X 10*6/uL Hgb (12.0-15.0) g/dL Hct (37.2-46.3) % MCV (80.0-97.0) fL MCH (27.0-32.0) pg MCHC (32.0-37.0) g/dL Immature Gran # (0.00-0.04) X 10*3/uL Neutrophils # (1.80-7.70) X 10*3/uL Neutrophils # (Manual) 16.39 H (2.00-8.90) X 10*3/uL Lymphocytes # (Manual) 0.35 L (0.90-5.00) X 10*3/uL Eosinophils # (Manual) 0 L (0.04-0.35) X 10*3/uL Chloride (96-109) mmol/L Anion Gap (10.00-18.00) mmol/L Est GFR (CKD-EPI)AfAm (60.0-200.0) Est GFR (CKD-EPI)NonAf (60.0-200.0) BUN/Creatinine Ratio (12.00-20.00) Ratio POC Glucose (mg/dL) 116 H 133 H (75-99) mg/dL Calcium (8.7-10.3) mg/dL 10/06/21 10/07/21 10/07/21 Range/Units 20:34 05:45 05:45 WBC 13.18 H (4.50-10.00) X 10*3/uL RBC 2.78 L (4.10-5.20) X 10*6/uL Hgb 9.0 L (12.0-15.0) g/dL Hct 29.2 L (37.2-46.3) % MCV 105.0 H (80.0-97.0) fL MCH 32.4 H (27.0-32.0) pg MCHC 30.8 L (32.0-37.0) g/dL Immature Gran # 0.17 H (0.00-0.04) X 10*3/uL Neutrophils # 10.76 H (1.80-7.70) X 10*3/uL Neutrophils # (Manual) (2.00-8.90) X 10*3/uL Lymphocytes # (Manual) (0.90-5.00) X 10*3/uL Eosinophils # (Manual) (0.04-0.35) X 10*3/uL Chloride 112 H (96-109) mmol/L Anion Gap 6.30 L (10.00-18.00) mmol/L Est GFR (CKD-EPI)AfAm 50.2 L (60.0-200.0) Est GFR (CKD-EPI)NonAf 43.3 L (60.0-200.0) BUN/Creatinine Ratio 9.37 L (12.00-20.00) Ratio POC Glucose (mg/dL) 120 H (75-99) mg/dL Calcium 7.4 L (8.7-10.3) mg/dL 10/07/21 Range/Units 07:22 WBC (4.50-10.00) X 10*3/uL RBC (4.10-5.20) X 10*6/uL Hgb (12.0-15.0) g/dL Hct (37.2-46.3) % MCV (80.0-97.0) fL MCH (27.0-32.0) pg MCHC (32.0-37.0) g/dL Immature Gran # (0.00-0.04) X 10*3/uL Neutrophils # (1.80-7.70) X 10*3/uL Neutrophils # (Manual) (2.00-8.90) X 10*3/uL Lymphocytes # (Manual) (0.90-5.00) X 10*3/uL Eosinophils # (Manual) (0.04-0.35) X 10*3/uL Chloride (96-109) mmol/L Anion Gap (10.00-18.00) mmol/L Est GFR (CKD-EPI)AfAm (60.0-200.0) Est GFR (CKD-EPI)NonAf (60.0-200.0) BUN/Creatinine Ratio (12.00-20.00) Ratio POC Glucose (mg/dL) 122 H (75-99) mg/dL Calcium (8.7-10.3) mg/dL Assessment and Plan Assessment: S/P revesion of left ureteroureterostomy on 10/05 and cystotomy repair on 10/01 -Keep Mcfarland in place, we'll need to keep in place for 14 days -Keep LUZMA in place, monitor output -Stent will stay in for 6 weeks -Ambulate
[2021-10-07 12:13] LABS: Glucose,Whole Blood 125 mg/dL (75-99)
--- NOTE | 2021-10-07 12:16 | P.PN ---
Subjective HISTORY OF PRESENT ILLNESS: This is a pleasant 66-year-old female past medical history significant for persistent atrial fibrillation s/p previous cardioversion in 2019 and recently in 07/2021, chronic nicotine dependence, COPD, coronary artery disease (09/20/21 heart catheterization revealing chronic total occlusion of the RCA with intermediate disease involving the left coronary system 45% stenosis ostial LAD. She follows with Dr. Perez. We have been asked to see in consultation for chest pain and atrial fibrillation with RVR. Patient presents to the emergency department with abdominal pain. CT of the abdomen and pelvis revealed partial large bowel obstruction secondary to eccentric bowel wall thickening of the sigmoid colon. Echocardiogram revealed an EF of 4550 percent, mild aortic regurgitation, mild mitral regurgitation, mild pulmonary hypertension. She is status post exploratory laparotomy, sigmoid colectomy with end colostomy, partial cystectomy, left salpingectomy, appendectomy and repair of left ureter. She remains NPO except for medications. Eliquis remains on hold per general surgery recommendations. She remains in atrial fibrillation with mildly uncontrolled ventricular rates. Blood pressure low 100s. 10/06 Patient seen and examined. Patient remains in A. fib with heart rates 100-110 range. She underwent repeat exploratory laparotomy yesterday. Chest x-ray this morning shows increasing moderate right and small left pleural effusions with atelectasis with mild pulmonary vascular congestion. She has remained nothing by mouth. White blood cell count 17.4 today. Hgb 10.6. She was started on digoxin 125 g yesterday as well as the metoprolol 25 3 times a day. Eliquis has been on hold. Receiving IV fluids at 50 mL per hour. 10/07 Patient seen and examined. Hemoglobin 9.0 this morning with creatinine 1.3. Admits she is feeling somewhat better today and tolerating popsicles and soft diet. Denies any chest pain or pressure. Denies any shortness breath. Heart rates. Was in the 90s to 100s this morning in the 70s to 80s. PHYSICAL EXAM: VITAL SIGNS: Reviewed. GENERAL: Well-developed in no acute distress. NECK: Supple. No JVD or thyromegaly LUNGS: Respirations even and unlabored. Breath sounds at bases. HEART: Irregular rate and rhythm. S1 and S2 heard. EXTREMITIES: Normal range of motion. No clubbing or cyanosis. Peripheral pulses intact. 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 PLAN: Continue current medications Anticoagulation remains hold per general surgery recommendations Continue home dose of digoxin Continue telemetry monitoring Patient does have bilateral pleural effusions however may be related to atelectasis, chest x-ray today appearing similar. IV fluids stop this morning and we will continue to monitor as patient without much oral intake. Heart rates better controlled this morning. Continue with current regimen. Objective - Vital Signs Vital signs: Vital Signs Temp 98.1 F 10/07/21 04:55 Pulse 97 10/07/21 08:00 Resp 20 10/07/21 08:00 BP 100/61 10/07/21 04:55 Pulse Ox 98 10/07/21 04:55 Intake & Output 10/06/21 10/07/21 10/07/21 18:59 06:59 18:59 Intake Total 1310 600 Output Total 400 630 200 Balance 910 -30 -200 Intake: Intake, IV Titration 950 600 Amount Dextrose 5%-0.45% NaCl 1, 750 600 000 ml @ 75 mls/hr IV . [id number] PALLAVI Rx#:[id number] Piperacillin-Tazobactam 3 100 .375 gm In Sodium Chloride 0.9% 100 ml @ 25 mls/hr IVPB Q8H PALLAVI Rx#: [id number] metroNIDAZOLE-NS PMX 500 100 mg In Saline 1 100ml.bag @ 100 mls/hr IVPB Q8H PALLAVI Rx#:[id number] Oral 360 Output: Drainage 0 30 Lower Abdomen 0 30 Urine 400 600 Stool 200 Other: Voiding Method Indwelling Catheter Indwelling Catheter Indwelling Catheter # Voids 1 - Labs CBC & Chem 7: 10/07/21 05:45 10/07/21 05:45 Labs: Abnormal Lab Results - Last 24 Hours (Table) 10/06/21 10/06/21 10/07/21 Range/Units 17:25 20:34 05:45 WBC 13.18 H (4.50-10.00) X 10*3/uL RBC 2.78 L (4.10-5.20) X 10*6/uL Hgb 9.0 L (12.0-15.0) g/dL Hct 29.2 L (37.2-46.3) % MCV 105.0 H (80.0-97.0) fL MCH 32.4 H (27.0-32.0) pg MCHC 30.8 L (32.0-37.0) g/dL Immature Gran # 0.17 H (0.00-0.04) X 10*3/uL Neutrophils # 10.76 H (1.80-7.70) X 10*3/uL Chloride (96-109) mmol/L Anion Gap (10.00-18.00) mmol/L Est GFR (CKD-EPI)AfAm (60.0-200.0) Est GFR (CKD-EPI)NonAf (60.0-200.0) BUN/Creatinine Ratio (12.00-20.00) Ratio POC Glucose (mg/dL) 133 H 120 H (75-99) mg/dL Calcium (8.7-10.3) mg/dL 10/07/21 10/07/21 10/07/21 Range/Units 05:45 07:22 12:10 WBC (4.50-10.00) X 10*3/uL RBC (4.10-5.20) X 10*6/uL Hgb (12.0-15.0) g/dL Hct (37.2-46.3) % MCV (80.0-97.0) fL MCH (27.0-32.0) pg MCHC (32.0-37.0) g/dL Immature Gran # (0.00-0.04) X 10*3/uL Neutrophils # (1.80-7.70) X 10*3/uL Chloride 112 H (96-109) mmol/L Anion Gap 6.30 L (10.00-18.00) mmol/L Est GFR (CKD-EPI)AfAm 50.2 L (60.0-200.0) Est GFR (CKD-EPI)NonAf 43.3 L (60.0-200.0) BUN/Creatinine Ratio 9.37 L (12.00-20.00) Ratio POC Glucose (mg/dL) 122 H 125 H (75-99) mg/dL Calcium 7.4 L (8.7-10.3) mg/dL
--- NOTE | 2021-10-07 12:23 | P.PN ---
Subjective Progress Note Date: 10/07/21 Principal diagnosis: Abdominal pain This is a 66-year-old female patient with past a history of smoking, COPD, hypertension, hyperlipidemia, chronic A. fib, coronary artery disease, who presented to the emergency department on 09/28/2021 with chief complaint of abdominal pain which had been ongoing for 10 days prior to presentation. Patient was also complaining of intermittent nausea, but no fever, no chills, no vomiting or diarrhea. Denied any blood in the stools. CT of abdomen and pelvis with contrast in the emergency department showed partial large bowel obstruction secondary to extensive bowel wall thickening of the sigmoid colon that was suspicious for primary malignancy. There was a string dilation of the colon and small bowel, there was mild cardiomegaly and hepatic steatosis. Patient had a prior colonoscopy 3 years ago. Admission labs showed normal white count of 4.6, hemoglobin was 16.2, INR was 1.2, electrolytes and renal profile were unremarkable, troponin was negative at less than 0.012, proBNP was 4290, lipase was within normal limits at 75, LFTs were within normal limits, urinalysis showed 1+ ketones, rare bacteria, negative glucose, no clear evidence of infection. Patient recently had a heart catheterization in August 2021 which showed total occlusion of the RCA with intermediate disease involving the left coronary system, and preserved left ventricular systolic function. Patient was started on IV fluids, and antibiotics and surgical consultation was obtained. She was taken to surgery on 10/01/2021, by Dr. Carranza and Dr. Luevano and underwent exploratory laparotomy, sigmoid colectomy with end colostomy, partial cystectomy, left salpingectomy, appendectomy, and repair of left ureter. In the recovery room patient was extubated however she needed to be reintubated in the recovery room in view of difficulty breathing, hypoxia, and insufficient respiratory effort. She was admitted to the intensive care unit following a recent intubation. This morning she remains intubated and on mechanical ventilator, with assist control mode of ventilation with a rate of 18, tidal volume is 350, FiO2 of 40%, and PEEP of 5. Today's blood gas shows a pO2 of 76, pCO2 47, and pH of 7.32 this was done and the above-mentioned ventilator s ettings, today's chest x-ray showing mild infiltrate and atelectasis at the right lung base which is improved compared old exam, and there is clearing of the pulmonary congestion. Patient is currently on D5 half-normal saline with 20 of potassium at a rate of 125, and improving and at 25 mics per kilo per minute, she did require 2-1/2 L bolus last night for low urine output. She is not requiring any vasopressor support right now. Today's labs have been reviewed White blood cell count is 13, hemoglobin is 12.3, sodium is 137, potassium is 4.1, chloride is 109, BUN is 14, creatinine is 1.07. Urinalysis was repeated showing large amount of blood, moderate leuks, and 15 of white blood cells, patient is on Zosyn for empiric antibiotic coverage. Her surgical biopsy results are still pending. Abdominal incision is covered with a surgical dressing, clean dry and intact, well approximated, patient has left lower quadrant colostomy with no stool or gas. On 10/03/2021 patient seen in follow-up in the intensive care unit, she was successfully weaned and extubated yesterday on 10/02/2021 on postoperative day #1. Today she is awake and alert, oriented 3, she is on 2 L oxygen and pulse ox is 99%, she is breathing comfortably, follow-up chest x-ray is pending but patient denies any shortness of breath, no cough, she been afebrile through the night, blood pressures have been on the lower side or marginal, she is in atrial fibrillation which is chronic for her, and at times she is slightly tachycardic with a rate in the low 100s BPM. IV fluids are D5 half-normal saline with 20 of potassium at a rate of 125 ML per hour, no nasal pressors. She remains on Zosyn for empiric antibiotic coverage. Abdomen has postoperative tenderness, left lower quadrant colostomy is producing brown stool. Lung sounds are clear, diminished, incentive spirometer effort is 1000 mL today. Urine output through the night has been marginal, in the order of 25-30 ML per hour, blood pressures have been marginal, patient's Lasix was placed on hold, recent echocardiogram showed LV function with EF of 45-50%. Today's labs have been reviewed, white blood cell count is 10.1, hemoglobin is 11.1, platelet count is 193, sodium is 137, potassium is 4.5, chloride is 113, CO2 is 18, BUN is 14, creatinine is 1.14. Patient has been tolerating ice chips, and popsicles, but she has had very poor oral intake and she states she does not feel like taking anything by mouth. No nausea or vomiting. Oral membranes are very dry, no lower extremity edema, lung sounds are clear. Abdominal incision is clean dry and intact, covered with a dressing, LUZMA drain is in place draining serosanguineous output and there has been 595 mL of output from the LUZMA drain over the last 24 hours. On 10/04/2021 patient seen in follow-up in the intensive care unit, she is awake and alert, in no acute distress. She is on 2 L of oxygen satting 95-100%, denies any respiratory difficulty, she needs encouragement and reminded using incentive spirometry, she is achieving 750 on it today. She is tolerating ice chips, she is a bit nauseous, but has had no vomiting. She is on D5 half-normal saline with 20 of potassium at a rate of 130 ML per hour, her colostomy is producing soft brown stool. She remains nothing by mouth except for ice chips and popsicles. LUZMA drain is producing large amount of serous output, patient has produced 720 ML of serous output from the LUZMA drain, there was a question regarding possibility of urine in the LUZMA drain, and for that reason LUZMA drainage was sent for urine creatinine. Abdominal x-ray was obtained today showing left ureteral stent with proximal and partially uncoiled, and abnormally positioned, displaced to the middle skin sahil at the pelvis and surgical drain some borderline distended small bowel loops, and development of some patchy basilar atelectasis versus infiltrate. Today's labs have been reviewed, white blood cell count is 8.9, hemoglobin is 10.7, sodium is 138, potassium is 5.2, chloride is 114, CO2 is 21, BUN is 10 and creatinine is 1.04. Urine output is in the order of 30-40 mL per hour, and this morning it is improved up to 50-100 ML per hour. Patient is developing some mild trace pretibial edema, we'll cut back IV fluids and switch it to D5 half-normal saline at a rate of 50 ML per hour On 10/07/2021 patient seen in follow-up on medical surgical floor, patient is awake and alert, in no acute distress, appears to be breathing comfortably, on 3 L of oxygen her pulse ox is 98%, hemodynamically stable, afebrile. No combative chest discomfort, no cough, no complaints of dyspnea, she is working on the incentive spirometer she is achieving 1 L on the today. She remains nothing by mouth except for ice chips. Remains on D5 half-normal saline at a rate of 75 ML per hour, her abdominal incision clean dry and intact, colostomy is making soft brown stool. She remains in atrial fibrillation, with a controlled rate, her anticoagulation still remains on hold. Patient is on GI and DVT prophylaxis. Today's chest x-ray showing cardiomegaly with moderate right pleural effusion and adjacent atelectasis. There is left pleural effusion and left basilar opacity. Objective - Vital Signs Vital signs: Vital Signs Temp 98.1 F 10/07/21 04:55 Pulse 97 10/07/21 08:00 Resp 20 10/07/21 08:00 BP 100/61 10/07/21 04:55 Pulse Ox 98 10/07/21 04:55 Intake & Output 10/06/21 10/07/21 10/07/21 18:59 06:59 18:59 Intake Total 1310 600 Output Total 400 630 200 Balance 910 -30 -200 Intake: Intake, IV Titration 950 600 Amount Dextrose 5%-0.45% NaCl 1, 750 600 000 ml @ 75 mls/hr IV . [id number] PALLAVI Rx#:[id number] Piperacillin-Tazobactam 3 100 .375 gm In Sodium Chloride 0.9% 100 ml @ 25 mls/hr IVPB Q8H PALLAVI Rx#: [id number] metroNIDAZOLE-NS PMX 500 100 mg In Saline 1 100ml.bag @ 100 mls/hr IVPB Q8H PALLAVI Rx#:[id number] Oral 360 Output: Drainage 0 30 Lower Abdomen 0 30 Urine 400 600 Stool 200 Other: Voiding Method Indwelling Catheter Indwelling Catheter Indwelling Catheter # Voids 1 - Exam GENERAL EXAM: Awake and alert oriented 3, 66-year-old female, on 3 L of oxygen and the pulse ox of 99%, comfortable in no apparent distress. HEAD: Normocephalic/atraumatic. EYES: Normal reaction of pupils, equal size. Conjunctiva pink, sclera white. NOSE: Clear with pink turbinates. THROAT: No erythema or exudates. NECK: No masses, no JVD, no thyroid enlargement, no adenopathy. CHEST: No chest wall deformity. Symmetrical expansion. LUNGS: Equal air entry with no crackles, wheeze, rhonchi or dullness. CVS: Regular rate and rhythm, normal S1 and S2, no gallops, no murmurs, no rubs ABDOMEN: Soft, nontender. Left lower quadrant colostomy in place producing soft brown stool, Mid abdominal incision below the umbilicus is clean dry and intact, sahil are intact, covered with surgical dressing, No hepatosplenomegaly, normal bowel sounds, no guarding or rigidity. EXTREMITIES: No clubbing, no edema, no cyanosis, 2+ pulses and upper and lower extremities. MUSCULOSKELETAL: Muscle strength and tone normal. SPINE: No scoliosis or deformity SKIN: No rashes CENTRAL NERVOUS SYSTEM: Awake and alert, oriented 3 No focal deficits, tone is normal in all 4 extremities. - Labs CBC & Chem 7: 10/07/21 05:45 10/07/21 05:45 Labs: Abnormal Lab Results - Last 24 Hours (Table) 10/06/21 10/06/21 10/07/21 Range/Units 17:25 20:34 05:45 WBC 13.18 H (4.50-10.00) X 10*3/uL RBC 2.78 L (4.10-5.20) X 10*6/uL Hgb 9.0 L (12.0-15.0) g/dL Hct 29.2 L (37.2-46.3) % MCV 105.0 H (80.0-97.0) fL MCH 32.4 H (27.0-32.0) pg MCHC 30.8 L (32.0-37.0) g/dL Immature Gran # 0.17 H (0.00-0.04) X 10*3/uL Neutrophils # 10.76 H (1.80-7.70) X 10*3/uL Chloride (96-109) mmol/L Anion Gap (10.00-18.00) mmol/L Est GFR (CKD-EPI)AfAm (60.0-200.0) Est GFR (CKD-EPI)NonAf (60.0-200.0) BUN/Creatinine Ratio (12.00-20.00) Ratio POC Glucose (mg/dL) 133 H 120 H (75-99) mg/dL Calcium (8.7-10.3) mg/dL 10/07/21 10/07/21 10/07/21 Range/Units 05:45 07:22 12:10 WBC (4.50-10.00) X 10*3/uL RBC (4.10-5.20) X 10*6/uL Hgb (12.0-15.0) g/dL Hct (37.2-46.3) % MCV (80.0-97.0) fL MCH (27.0-32.0) pg MCHC (32.0-37.0) g/dL Immature Gran # (0.00-0.04) X 10*3/uL Neutrophils # (1.80-7.70) X 10*3/uL Chloride 112 H (96-109) mmol/L Anion Gap 6.30 L (10.00-18.00) mmol/L Est GFR (CKD-EPI)AfAm 50.2 L (60.0-200.0) Est GFR (CKD-EPI)NonAf 43.3 L (60.0-200.0) BUN/Creatinine Ratio 9.37 L (12.00-20.00) Ratio POC Glucose (mg/dL) 122 H 125 H (75-99) mg/dL Calcium 7.4 L (8.7-10.3) mg/dL Assessment and Plan Plan: Assessment: #1. Acute hypoxic and hypercapnic respiratory failure following surgical procedure possibly related to procedural sedation and history of COPD, and patient had to be reintubated in the recovery room following exploratory laparotomy, sigmoid colectomy, partial cystectomy, left salpingectomy, appendectomy and repair of the left ureter on 10/01/2021. Chest x-ray today showing some mild infiltration and atelectasis at the right lung base #2. 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 Abdominal pain related to the above #4. Hypotension, related to hypovolemia, improved with IV fluid boluses #5. History of COPD #6. Former smoker #7. Coronary artery disease #8. Chronic A. fib on Eliquis which is currently on hold #9. Hypertension #10. Hyperlipidemia Plan: Continue encouraging deep breathing and coughing Continue incentive spirometry use We'll contact IV fluids to 50 ML per hour Patient remains nothing by mouth Surgical recommendations for diet Today's chest x-ray has been reviewed showing right greater than left pleural effusions Continue to monitor her respiratory status Continue GI and DVT prophylaxis Anticoagulation and rate control medications per cardiology and surgery I have personally seen and examined the patient, performed the documentation and the assessment and plan as written. Number of minutes spent on the visit: [10] Time with Patient: Less than 30
[2021-10-07 17:16] LABS: Glucose,Whole Blood 116 mg/dL (75-99)
[2021-10-07] MEDS: ATORVASTATIN 40 MG TAB PO SCH (20:29)
[2021-10-07 20:40] LABS: Glucose,Whole Blood 117 mg/dL (75-99)
[2021-10-08] MEDS: HEPARIN SODIUM,PORCINE/PF 5,000 UNIT/0.5 ML SYRINGE SQ SCH ×2 (00:14→08:06)
[2021-10-08] MEDS: KETOROLAC 15 MG/ML 1 ML VIAL IVP SCH ×4 (00:16→17:35)
[2021-10-08] MEDS: HYDROcodone/APAP 5-325MG 1 EACH TAB PO PRN ×2 (05:41→09:45)
[2021-10-08 06:15] LABS: Basophils % (A) 0 %; Eosinophils # (A) 0.1 k/uL (0-0.7); Eosinophils % (A) 1 %; HCT 31.6 % (34.0-46.0); HGB 9.7 gm/dL (11.4-16.0); Hypochromasia Slight; Lymphocytes # (A) 1.1 k/uL (1.0-4.8); Lymphocytes % (A) 10 %; MCH 32.9 pg (25.0-35.0); MCHC 30.7 g/dL (31.0-37.0); MCV 106.9 fL (80.0-100.0); Macrocytosis Moderate; Mean Platelet Volume 7.8; Monocytes # (A) 0.4 k/uL (0-1.0); Monocytes % (A) 4 %; Neutrophils # (A) 9.4 k/uL (1.3-7.7); Neutrophils % (A) 84 %; Platelet Count 294 k/uL (150-450); RBC 2.96 m/uL (3.80-5.40); RDW 14.1 % (11.5-15.5); WBC 11.1 k/uL (3.8-10.6)
[2021-10-08 06:41] LABS: African American GFR (CKD) 59 (>60 ml/min/1.73 sqM); Anion Gap 2 mmol/L; Blood Urea Nitrogen 12 mg/dL (7-17); Calcium 7.3 mg/dL (8.4-10.2); Carbon Dioxide 23 mmol/L (22-30); Chloride 112 mmol/L (98-107); Glucose 91 mg/dL (74-99); Magnesium 1.7 mg/dL (1.6-2.3); Non-African American GFR(CKD) 51 (>60 ml/min/1.73 sqM); Potassium 3.7 mmol/L (3.5-5.1); Sodium 137 mmol/L (137-145)
[2021-10-08 07:30] LABS: Glucose,Whole Blood 104 mg/dL (75-99)
[2021-10-08] MEDS: INSULIN ASPART (NovoLOG) 100 UNIT/ML VIAL SQ SCH ×4 (07:30→21:15)
[2021-10-08] MEDS: METOPROLOL TARTRATE 25 MG TAB PO SCH ×3 (08:05→21:12)
[2021-10-08] MEDS: DIGOXIN 125 MCG TAB PO SCH (08:05)
[2021-10-08] MEDS: methocarbamoL 750 MG TAB PO SCH ×3 (08:05→22:30)
[2021-10-08] MEDS: FAMOTIDINE 20 MG/2 ML VIAL IV SCH (08:05)
--- NOTE | 2021-10-08 08:19 | P.PN ---
Subjective 66-year-old female presents to the emergency department with a chief complaint of abdominal pain. Patient states her symptoms started 10 days ago. Describes it as generalized abdominal pain with no radiation. No back pain. She states she had intermittent nausea for the first couple days that has since resolved. No fever, chills, vomiting, or diarrhea. Normal bowel movements with last bowel movement yesterday, nonbloody. Patient has been tolerating oral intake okay however states her appetite has decreased. No burning with urination, increased urinary frequency/urgency, or blood in the urine. No chest pain or shortness of breath. Patient does have history of atrial fibrillation on Eliquis. No upper respiratory symptoms or recent sick contacts. No previous abdominal surgeries. Patient does admit to tobacco use with [id number] history. She denies family history of aneurysm. CT is significant for a suspected partial large bowel obstruction secondary to eccentric bowel wall thickening of the sigmoid colon which is suspicious for primary malignancy. EKG revealed atrial fibrillation with rapid ventricular response; patient was started on IV Cardizem Patient continues to have abdominal distention and pain; no bowel movements; general surgery on board and planning to repeat abdominal x-ray with tentative plan for partial colectomy tomorrow Patient remains in atrial fibrillation with controlled ventricular response at this time; no anticoagulation therapy for anticipated surgery in next 24-48 h ours; echocardiogram reveals normal LV function and no significant valvular abnormalities; cardiology on board and recommending to continue with Lasix 20 mg daily for mild fluid overload; Resume the care of the patient 10/01/2021. Patient awake and alert. She still with abdominal complaint and pain and discomfort with no bowel movement. Surgery team are planning for exploratory laparotomy with possible diverting colostomy and possible sigmoid resection. Optometric Coordinator team on the case also for preop evaluation and also for her A. fib. Currently rate controlled on metoprolol and oral Lasix. She is on D5 half-normal saline at 50 mL per hour, Flagyl and Zosyn. Labs look stable. 10/02/2021 Patient with sigmoid mass status post exploratory laparotomy with Sigmoid colectomy with end colostomy, Partial cystectomy, Left salpingectomy, Appendectomy, Repair of left ureterPeriod secondary to left ureteral injury during surgical resection. Patient vomited by urologist and had left ureteral repair. Currently has a Mcfarland catheter was recommendation to stay for 2 weeks. Post operatively patient got intubated. Patient currently remains on mechanical ventilation She remains on Zosyn, Eliquis on hold. Patient is started on Pepcid and subcu heparin.. She received also normal saline boluses 10/03/2021 Today patient in the ICU status post extubation. She is postoperative day #2. She still nothing by mouth, awake but very weak. Her colostomy back in a Place, no bowel movement yet. Also Mcfarland catheter with PATRICE drain with more than 200 of serosanguineous fluid. Her pathology is pending, Eliquis still on hold, patient kept on Flagyl and Zosyn and IV fluids. Patient received 1 L of normal saline for hypertension, also her metoprolol dose lowered to 25 mg. 10/04/2021 Patient clinically is improving gradually, her pain at the surgery site is country of, she is fully awake and oriented, she does not look in distress. Her colostomy tube in the left lower quadrant abdomen with some small amounts light brown stool. Mcfarland catheter in place with yellow urine. A follow-up for stent urologist recommended CT of the abdomen without contrast was showing mild positioning of the double J stent, CT urogram is ordered and is pending, neurology following closely. Other that clinically she is doing generally well, improving slowly. She kept nothing by mouth with surgery team following him closely as well. Patient's can go to the general medical floor today. Continue with Flagyl and Zosyn, D5 half-normal saline at 50 mL/h and metoprolol increased to 25 g 3 times a day today. She is also a small dose of oral Lasix while Eliquis still on hold 10/05/2021 Patient remains nothing by mouth, colostomy with no bowel movement or gas. Mcfarland catheter in place. She remains on D5 half-normal saline at 50 mL per hour She looks tired but no distress. Hemodynamically stable. Labs reviewed with WBC 8.2, creatinine 1.1. CT urogram: Extraluminal secreted IV contrast most pronounced along the left ureter with some also appearing near the distal right ureter on delayed imaging. This is favored to represent a left ureteral injury with layering in the pelvis. Right ureteral injury is not entirely exclude it.A left ureteral stent is seen. urologist on the case 10/06/2021 patient remains clinically same with no significant change, she is tired looking, she still nothing by mouth. Colostomy back still not showing bowel movements today however it has bowel movement yesterday Mcfarland catheter in place. Patient followed closely by urology service Pathology did not show final diagnosis and the specimen was sent to [facility] by pathologist for consultation. Oncology team on the case also. Continue with Zosyn, Flagyl and D5 half-normal saline at 50 mL per hour. 10/07/2021 Patient generally doing well and she is improving gradually and slowly. His morning she was still nothing by mouth but surgery team are planning to start her on diet and liquid diet today. Colostomy back is working and last time and it was last night. Mcfarland catheter in place with some dark colored urine which is expected from her recent surgery and some bleeding. Repeat chest x-ray showing pleural effusion with atelectasis. Pending pathology which is sent then [facility] for further consultation. She remains on Flagyl and Zosyn and D5 half-normal saline at 50. Eliquis on hold Objective - Vital Signs Vital signs: Vital Signs Temp 98.1 F 10/07/21 04:55 Pulse 97 10/07/21 04:55 Resp 20 10/07/21 04:55 BP 100/61 10/07/21 04:55 Pulse Ox 98 10/07/21 04:55 Intake & Output 10/06/21 10/07/21 10/07/21 18:59 06:59 18:59 Intake Total 1310 600 Output Total 400 630 Balance 910 -30 Intake: Intake, IV Titration 950 600 Amount Dextrose 5%-0.45% NaCl 1, 750 600 000 ml @ 75 mls/hr IV . [id number] PALLAVI Rx#:[id number] Piperacillin-Tazobactam 3 100 .375 gm In Sodium Chloride 0.9% 100 ml @ 25 mls/hr IVPB Q8H PALLAVI Rx#: [id number] metroNIDAZOLE-NS PMX 500 100 mg In Saline 1 100ml.bag @ 100 mls/hr IVPB Q8H PALLAVI Rx#:[id number] Oral 360 Output: Drainage 0 30 Lower Abdomen 0 30 Urine 400 600 Other: Voiding Method Indwelling Catheter Indwelling Catheter # Voids 1 - Exam GENERAL: The patient is alert and oriented x3, not in any acute distress. Well developed, well nourished. HEENT: Pupils are round and equally reacting to light. EOMI. No scleral icterus. No conjunctival pallor. Normocephalic, atraumatic. No pharyngeal erythema. No thyromegaly. CARDIOVASCULAR: S1 and S2 present. No murmurs, rubs, or gallops. PULMONARY: Chest is clear to auscultation, no wheezing or crackles. -ABDOMEN: Soft, mild generalized tenderness and mild generalized distention, normoactive bowel sounds. No palpable organomegaly. Colostomy tube in place, Mcfarland catheter MUSCULOSKELETAL: No joint swelling or deformity. EXTREMITIES: No cyanosis, clubbing, or pedal edema. NEUROLOGICAL: Gross neurological examination did not reveal any focal deficits. SKIN: No rashes. no petechiae. - Labs CBC & Chem 7: 10/08/21 05:34 10/08/21 05:34 Labs: Abnormal Lab Results - Last 24 Hours (Table) 10/06/21 10/06/21 10/06/21 Range/Units 06:02 06:02 11:45 WBC (4.50-10.00) X 10*3/uL RBC (4.10-5.20) X 10*6/uL Hgb (12.0-15.0) g/dL Hct (37.2-46.3) % MCV (80.0-97.0) fL MCH (27.0-32.0) pg MCHC (32.0-37.0) g/dL Immature Gran # (0.00-0.04) X 10*3/uL Neutrophils # (1.80-7.70) X 10*3/uL Neutrophils # (Manual) 16.39 H (2.00-8.90) X 10*3/uL Lymphocytes # (Manual) 0.35 L (0.90-5.00) X 10*3/uL Eosinophils # (Manual) 0 L (0.04-0.35) X 10*3/uL Chloride 112 H (96-109) mmol/L Anion Gap 8.60 L (10.00-18.00) mmol/L Est GFR (CKD-EPI)AfAm 48.8 L (60.0-200.0) Est GFR (CKD-EPI)NonAf 42.1 L (60.0-200.0) BUN/Creatinine Ratio 7.38 L (12.00-20.00) Ratio POC Glucose (mg/dL) 116 H (75-99) mg/dL Calcium 7.7 L (8.7-10.3) mg/dL Iron 13 L (50-170) ug/dL TIBC 96 L (228-460) ug/dL Transferrin 68.7 L (204.0-354.0) mg/dL Ferritin 292.0 H (10.0-291.0) ng/mL Total Protein 3.4 L (6.2-8.2) g/dL Albumin 1.7 L (3.8-4.9) g/dL Albumin/Globulin Ratio 1.00 L (1.60-3.17) g/dL Vitamin B12 1443.0 H (200.0-944.0) pg/mL 10/06/21 10/06/21 10/07/21 Range/Units 17:25 20:34 05:45 WBC 13.18 H (4.50-10.00) X 10*3/uL RBC 2.78 L (4.10-5.20) X 10*6/uL Hgb 9.0 L (12.0-15.0) g/dL Hct 29.2 L (37.2-46.3) % MCV 105.0 H (80.0-97.0) fL MCH 32.4 H (27.0-32.0) pg MCHC 30.8 L (32.0-37.0) g/dL Immature Gran # 0.17 H (0.00-0.04) X 10*3/uL Neutrophils # 10.76 H (1.80-7.70) X 10*3/uL Neutrophils # (Manual) (2.00-8.90) X 10*3/uL Lymphocytes # (Manual) (0.90-5.00) X 10*3/uL Eosinophils # (Manual) (0.04-0.35) X 10*3/uL Chloride (96-109) mmol/L Anion Gap (10.00-18.00) mmol/L Est GFR (CKD-EPI)AfAm (60.0-200.0) Est GFR (CKD-EPI)NonAf (60.0-200.0) BUN/Creatinine Ratio (12.00-20.00) Ratio POC Glucose (mg/dL) 133 H 120 H (75-99) mg/dL Calcium (8.7-10.3) mg/dL Iron (50-170) ug/dL TIBC (228-460) ug/dL Transferrin (204.0-354.0) mg/dL Ferritin (10.0-291.0) ng/mL Total Protein (6.2-8.2) g/dL Albumin (3.8-4.9) g/dL Albumin/Globulin Ratio (1.60-3.17) g/dL Vitamin B12 (200.0-944.0) pg/mL 10/07/21 10/07/21 Range/Units 05:45 07:22 WBC (4.50-10.00) X 10*3/uL RBC (4.10-5.20) X 10*6/uL Hgb (12.0-15.0) g/dL Hct (37.2-46.3) % MCV (80.0-97.0) fL MCH (27.0-32.0) pg MCHC (32.0-37.0) g/dL Immature Gran # (0.00-0.04) X 10*3/uL Neutrophils # (1.80-7.70) X 10*3/uL Neutrophils # (Manual) (2.00-8.90) X 10*3/uL Lymphocytes # (Manual) (0.90-5.00) X 10*3/uL Eosinophils # (Manual) (0.04-0.35) X 10*3/uL Chloride 112 H (96-109) mmol/L Anion Gap 6.30 L (10.00-18.00) mmol/L Est GFR (CKD-EPI)AfAm 50.2 L (60.0-200.0) Est GFR (CKD-EPI)NonAf 43.3 L (60.0-200.0) BUN/Creatinine Ratio 9.37 L (12.00-20.00) Ratio POC Glucose (mg/dL) 122 H (75-99) mg/dL Calcium 7.4 L (8.7-10.3) mg/dL Iron (50-170) ug/dL TIBC (228-460) ug/dL Transferrin (204.0-354.0) mg/dL Ferritin (10.0-291.0) ng/mL Total Protein (6.2-8.2) g/dL Albumin (3.8-4.9) g/dL Albumin/Globulin Ratio (1.60-3.17) g/dL Vitamin B12 (200.0-944.0) pg/mL Assessment and Plan Assessment: -Sigmoid wall thickening suspicious for sigmoid months with partial colon obstruction. status post exploratory laparotomy with Sigmoid colectomy with end colostomy, Partial cystectomy, Left salpingectomy, Appendectomy, Repair of left ureterPeriod secondary to left ureteral injury during surgical resection -A. fib and RVR. -Hypertension -Hyperlipidemia -History of COPD, not in activation Plan: this is a pleasant 66 years old female. Going for bowel surgery for her possible colon mass. Also with A. fib. Continue with Flagyl and Zosyn and gentle hydration. Pulmonary team consult, Continue with Surgery team on the case. Pathology sent to [facility]: Follow-up results Cardiology team on the case, continue with metoprolol. Continue gentle hydration urology team on the case Labs and medication were reviewed.. Continue same treatment. Continue with symptomatic treatment. Resume home medication. Monitor lytes and vitals. DVT and GI prophylaxis. Further recommendations as per clinical course of the patient DVT prophylaxis: Subcu heparin. Libbyquis is on hold GI Prophylaxis: Pepcid PT/OT: Deferred Prognosis is guarded
[2021-10-08] MEDS ORDERED: FUROSEMIDE 10 MG/ML 4 ML VIAL IV STA (08:35)
[2021-10-08] MEDS ORDERED: Magnesium Replacement Protocol 1 EACH MISC MISCELLANE PRN (10:16)
--- NOTE | 2021-10-08 10:48 | P.PN ---
Subjective Progress Note Date: 10/08/21 Principal diagnosis: Abdominal pain This is a 66-year-old female patient with past a history of smoking, COPD, hypertension, hyperlipidemia, chronic A. fib, coronary artery disease, who presented to the emergency department on 09/28/2021 with chief complaint of abdominal pain which had been ongoing for 10 days prior to presentation. Patient was also complaining of intermittent nausea, but no fever, no chills, no vomiting or diarrhea. Denied any blood in the stools. CT of abdomen and pelvis with contrast in the emergency department showed partial large bowel obstruction secondary to extensive bowel wall thickening of the sigmoid colon that was suspicious for primary malignancy. There was a string dilation of the colon and small bowel, there was mild cardiomegaly and hepatic steatosis. Patient had a prior colonoscopy 3 years ago. Admission labs showed normal white count of 4.6, hemoglobin was 16.2, INR was 1.2, electrolytes and renal profile were unremarkable, troponin was negative at less than 0.012, proBNP was 4290, lipase was within normal limits at 75, LFTs were within normal limits, urinalysis showed 1+ ketones, rare bacteria, negative glucose, no clear evidence of infection. Patient recently had a heart catheterization in August 2021 which showed total occlusion of the RCA with intermediate disease involving the left coronary system, and preserved left ventricular systolic function. Patient was started on IV fluids, and antibiotics and surgical consultation was obtained. She was taken to surgery on 10/01/2021, by Dr. Carranza and Dr. Luevano and underwent exploratory laparotomy, sigmoid colectomy with end colostomy, partial cystectomy, left salpingectomy, appendectomy, and repair of left ureter. In the recovery room patient was extubated however she needed to be reintubated in the recovery room in view of difficulty breathing, hypoxia, and insufficient respiratory effort. She was admitted to the intensive care unit following a recent intubation. This morning she remains intubated and on mechanical ventilator, with assist control mode of ventilation with a rate of 18, tidal volume is 350, FiO2 of 40%, and PEEP of 5. Today's blood gas shows a pO2 of 76, pCO2 47, and pH of 7.32 this was done and the above-mentioned ventilator s ettings, today's chest x-ray showing mild infiltrate and atelectasis at the right lung base which is improved compared old exam, and there is clearing of the pulmonary congestion. Patient is currently on D5 half-normal saline with 20 of potassium at a rate of 125, and improving and at 25 mics per kilo per minute, she did require 2-1/2 L bolus last night for low urine output. She is not requiring any vasopressor support right now. Today's labs have been reviewed White blood cell count is 13, hemoglobin is 12.3, sodium is 137, potassium is 4.1, chloride is 109, BUN is 14, creatinine is 1.07. Urinalysis was repeated showing large amount of blood, moderate leuks, and 15 of white blood cells, patient is on Zosyn for empiric antibiotic coverage. Her surgical biopsy results are still pending. Abdominal incision is covered with a surgical dressing, clean dry and intact, well approximated, patient has left lower quadrant colostomy with no stool or gas. On 10/03/2021 patient seen in follow-up in the intensive care unit, she was successfully weaned and extubated yesterday on 10/02/2021 on postoperative day #1. Today she is awake and alert, oriented 3, she is on 2 L oxygen and pulse ox is 99%, she is breathing comfortably, follow-up chest x-ray is pending but patient denies any shortness of breath, no cough, she been afebrile through the night, blood pressures have been on the lower side or marginal, she is in atrial fibrillation which is chronic for her, and at times she is slightly tachycardic with a rate in the low 100s BPM. IV fluids are D5 half-normal saline with 20 of potassium at a rate of 125 ML per hour, no nasal pressors. She remains on Zosyn for empiric antibiotic coverage. Abdomen has postoperative tenderness, left lower quadrant colostomy is producing brown stool. Lung sounds are clear, diminished, incentive spirometer effort is 1000 mL today. Urine output through the night has been marginal, in the order of 25-30 ML per hour, blood pressures have been marginal, patient's Lasix was placed on hold, recent echocardiogram showed LV function with EF of 45-50%. Today's labs have been reviewed, white blood cell count is 10.1, hemoglobin is 11.1, platelet count is 193, sodium is 137, potassium is 4.5, chloride is 113, CO2 is 18, BUN is 14, creatinine is 1.14. Patient has been tolerating ice chips, and popsicles, but she has had very poor oral intake and she states she does not feel like taking anything by mouth. No nausea or vomiting. Oral membranes are very dry, no lower extremity edema, lung sounds are clear. Abdominal incision is clean dry and intact, covered with a dressing, LUZMA drain is in place draining serosanguineous output and there has been 595 mL of output from the LUZMA drain over the last 24 hours. On 10/04/2021 patient seen in follow-up in the intensive care unit, she is awake and alert, in no acute distress. She is on 2 L of oxygen satting 95-100%, denies any respiratory difficulty, she needs encouragement and reminded using incentive spirometry, she is achieving 750 on it today. She is tolerating ice chips, she is a bit nauseous, but has had no vomiting. She is on D5 half-normal saline with 20 of potassium at a rate of 130 ML per hour, her colostomy is producing soft brown stool. She remains nothing by mouth except for ice chips and popsicles. LUZMA drain is producing large amount of serous output, patient has produced 720 ML of serous output from the LUZMA drain, there was a question regarding possibility of urine in the LUZMA drain, and for that reason LUZMA drainage was sent for urine creatinine. Abdominal x-ray was obtained today showing left ureteral stent with proximal and partially uncoiled, and abnormally positioned, displaced to the middle skin sahil at the pelvis and surgical drain some borderline distended small bowel loops, and development of some patchy basilar atelectasis versus infiltrate. Today's labs have been reviewed, white blood cell count is 8.9, hemoglobin is 10.7, sodium is 138, potassium is 5.2, chloride is 114, CO2 is 21, BUN is 10 and creatinine is 1.04. Urine output is in the order of 30-40 mL per hour, and this morning it is improved up to 50-100 ML per hour. Patient is developing some mild trace pretibial edema, we'll cut back IV fluids and switch it to D5 half-normal saline at a rate of 50 ML per hour On 10/07/2021 patient seen in follow-up on medical surgical floor, patient is awake and alert, in no acute distress, appears to be breathing comfortably, on 3 L of oxygen her pulse ox is 98%, hemodynamically stable, afebrile. No combative chest discomfort, no cough, no complaints of dyspnea, she is working on the incentive spirometer she is achieving 1 L on the today. She remains nothing by mouth except for ice chips. Remains on D5 half-normal saline at a rate of 75 ML per hour, her abdominal incision clean dry and intact, colostomy is making soft brown stool. She remains in atrial fibrillation, with a controlled rate, her anticoagulation still remains on hold. Patient is on GI and DVT prophylaxis. Today's chest x-ray showing cardiomegaly with moderate right pleural effusion and adjacent atelectasis. There is left pleural effusion and left basilar opacity. On 10/08/2021 patient seen in follow-up on medical surgical floor. Patient is awake and alert, in no acute distress, she is breathing comfortably, she is resting in bed, she is not liters of oxygen pulse ox is 99%. Denies any worsening dyspnea, no cough, no chest discomfort. She remains on D5 half-normal seen at a rate of 50 ML per hour. She was started on oral diet yesterday, she is tolerating full liquid diet. Colostomy is producing soft brown stool. Abdominal Incision is clean dry and intact. Yesterday's chest x-ray showed cardiomegaly with moderate right-sided pleural effusion and adjacent atelectasis. There was trace left pleural effusion and left basilar opacity for some interval improvement. However oxygenation has been stable, patient is breathing very comfortably, she denies any respiratory distress. No fever or chills overnight, today's labs have been reviewed white blood cell count is improving and is down to 11.1, hemoglobin is 9.7, sodium is 137, potassium 3.7, chloride is 112, BUN is 12, creatinine is 1.11. Objective - Vital Signs Vital signs: Vital Signs Temp 97.4 F L 10/08/21 04:57 Pulse 74 10/08/21 08:19 Resp 20 10/08/21 04:57 BP 110/64 10/08/21 08:19 Pulse Ox 99 10/08/21 04:57 Intake & Output 10/07/21 10/08/21 10/08/21 18:59 06:59 18:59 Intake Total 600 900 Output Total 200 790 Balance 400 110 Intake: Intake, IV Titration 600 600 Amount Dextrose 5%-0.45% NaCl 1, 600 600 000 ml @ 50 mls/hr IV . Q20H [facility] Rx#:[id number] Oral 300 Output: Drainage 40 Lower Abdomen 40 Urine 750 Stool 200 Other: Voiding Method Indwelling Catheter Indwelling Catheter - Exam GENERAL EXAM: Awake and alert oriented 3, 66-year-old female, on 3 L of oxygen and the pulse ox of 99%, comfortable in no apparent distress. HEAD: Normocephalic/atraumatic. EYES: Normal reaction of pupils, equal size. Conjunctiva pink, sclera white. NOSE: Clear with pink turbinates. THROAT: No erythema or exudates. NECK: No masses, no JVD, no thyroid enlargement, no adenopathy. CHEST: No chest wall deformity. Symmetrical expansion. LUNGS: Equal air entry with no crackles, wheeze, rhonchi or dullness. CVS: Regular rate and rhythm, normal S1 and S2, no gallops, no murmurs, no rubs ABDOMEN: Soft, nontender. Left lower quadrant colostomy in place producing soft brown stool, Mid abdominal incision below the umbilicus is clean dry and intact, sahil are intact, covered with surgical dressing, No hepatosplenomegaly, normal bowel sounds, no guarding or rigidity. EXTREMITIES: No clubbing, no edema, no cyanosis, 2+ pulses and upper and lower e xtremities. MUSCULOSKELETAL: Muscle strength and tone normal. SPINE: No scoliosis or deformity SKIN: No rashes CENTRAL NERVOUS SYSTEM: Awake and alert, oriented 3 No focal deficits, tone is normal in all 4 extremities. - Labs CBC & Chem 7: 10/08/21 05:34 10/08/21 05:34 Labs: Abnormal Lab Results - Last 24 Hours (Table) 10/07/21 10/07/21 10/07/21 Range/Units 12:10 17:14 20:37 WBC (3.8-10.6) k/uL RBC (3.80-5.40) m/uL Hgb (11.4-16.0) gm/dL Hct (34.0-46.0) % MCV (80.0-100.0) fL MCHC (31.0-37.0) g/dL Neutrophils # (1.3-7.7) k/uL Chloride (98-107) mmol/L Creatinine (0.52-1.04) mg/dL POC Glucose (mg/dL) 125 H 116 H 117 H (75-99) mg/dL Calcium (8.4-10.2) mg/dL 10/08/21 10/08/21 10/08/21 Range/Units 05:34 05:34 07:28 WBC 11.1 H (3.8-10.6) k/uL RBC 2.96 L (3.80-5.40) m/uL Hgb 9.7 L (11.4-16.0) gm/dL Hct 31.6 L (34.0-46.0) % MCV 106.9 H (80.0-100.0) fL MCHC 30.7 L (31.0-37.0) g/dL Neutrophils # 9.4 H (1.3-7.7) k/uL Chloride 112 H (98-107) mmol/L Creatinine 1.11 H (0.52-1.04) mg/dL POC Glucose (mg/dL) 104 H (75-99) mg/dL Calcium 7.3 L (8.4-10.2) mg/dL Assessment and Plan Plan: Assessment: #1. Acute hypoxic and hypercapnic respiratory failure following surgical procedure possibly related to procedural sedation and history of COPD, and patient had to be reintubated in the recovery room following exploratory laparotomy, sigmoid colectomy, partial cystectomy, left salpingectomy, appendectomy and repair of the left ureter on 10/01/2021. Chest x-ray today showing some mild infiltration and atelectasis at the right lung base #2. 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 Abdominal pain related to the above #4. Hypotension, related to hypovolemia, resolved with IV fluid boluses #5. History of COPD #6. Former smoker #7. Coronary artery disease #8. Chronic A. fib on Eliquis which is currently on hold #9. Hypertension #10. Hyperlipidemia Plan: Decrease IV fluids down to KVO Patient has been started on oral diet, and she is tolerating it well Yesterday's chest x-ray showed a moderate-sized right pleural effusion, and small left pleural effusion However oxygenation has been stable, we considered ultrasound of the chest, however in view of her stable respiratory status will get the patient a dose of IV Lasix Continue encouraging deep breathing and coughing Increase activity as tolerated I have personally seen and examined the patient, performed the documentation and the assessment and plan as written. Number of minutes spent on the visit: [10] Time with Patient: Less than 30
--- NOTE | 2021-10-08 11:23 | P.PN ---
Subjective This is a pleasant 66-year-old female past medical history significant for persistent atrial fibrillation s/p previous cardioversion in 2019 and recently in 07/2021, chronic nicotine dependence, COPD, coronary artery disease (09/20/21 heart catheterization revealing chronic total occlusion of the RCA with intermediate disease involving the left coronary system 45% stenosis ostial LAD. She follows with Dr. Perez. We have been asked to see in consultation for chest pain and atrial fibrillation with RVR. Patient presents to the emergency department with abdominal pain. CT of the abdomen and pelvis revealed partial large bowel obstruction secondary to eccentric bowel wall thickening of the sigmoid colon. Echocardiogram revealed an EF of 4550%, mild aortic regurgitation, mild mitral regurgitation, mild pulmonary hypertension. 10/05/2021 she underwent exploratory laparotomy, sigmoid colectomy with end colostomy, partial cystectomy, left salpingectomy, appendectomy and repair of left ureter. 10/08/2021 Patient seen and examined at bedside, no acute distress. Denies chest pain or shortness of berath. She continues to be in atrial fibrillation with controlled ventricular rates. Hemodynamically she is stable. Anticoagulation is on hold per surgery recommendations. She's currently maintained on atorvastatin 40 mg nightly, digoxin 125mcg daily, Lasix 20 mg daily, metoprolol titrate 50 mg 3 times a day VITALS: Blood pressure 110/64, heart rate 74, afebrile, saturations 99% on 2 L GENERAL: In no acute distress. NECK: Supple without JVD or thyromegaly. LUNGS: Breath sounds diminished bases to auscultation bilaterally. Respiration equal and unlabored. No wheezes, rales or rhonchi ABDOMEN: Left lower quadrant colostomy with soft brown stool, Mid abdominal incision clean dry and intact, sahil present. HEART: Irregular rate and rhythm without murmurs, rubs or gallops. S1 and S2 heard. EXTREMITIES: Normal range of motion, no edema. No clubbing or cyanosis. Peripheral pulses intact. 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 Hypertension Dyslipidemia PLAN Continue current medications Anticoagulation remains hold per general surgery recommendations, discussed with surgical team today. Continue home dose of digoxin Continue telemetry monitoring No further changes from a cardiology perspective. Nurse Practitioner note has been reviewed, I agree with a documented findings and plan of care. Patient was seen and examined. Objective - Vital Signs Vital signs: Vital Signs Temp 97.4 F L 10/08/21 04:57 Pulse 74 10/08/21 08:19 Resp 20 10/08/21 04:57 BP 110/64 10/08/21 08:19 Pulse Ox 99 10/08/21 04:57 Intake & Output 10/07/21 10/08/21 10/08/21 18:59 06:59 18:59 Intake Total 600 900 Output Total 200 790 Balance 400 110 Intake: Intake, IV Titration 600 600 Amount Dextrose 5%-0.45% NaCl 1, 600 600 000 ml @ 50 mls/hr IV . Q20H [facility] Rx#:[id number] Oral 300 Output: Drainage 40 Lower Abdomen 40 Urine 750 Stool 200 Other: Voiding Method Indwelling Catheter Indwelling Catheter Indwelling Catheter - Labs CBC & Chem 7: 10/08/21 05:34 10/08/21 05:34 Labs: Abnormal Lab Results - Last 24 Hours (Table) 10/07/21 10/07/21 10/07/21 Range/Units 12:10 17:14 20:37 WBC (3.8-10.6) k/uL RBC (3.80-5.40) m/uL Hgb (11.4-16.0) gm/dL Hct (34.0-46.0) % MCV (80.0-100.0) fL MCHC (31.0-37.0) g/dL Neutrophils # (1.3-7.7) k/uL Chloride (98-107) mmol/L Creatinine (0.52-1.04) mg/dL POC Glucose (mg/dL) 125 H 116 H 117 H (75-99) mg/dL Calcium (8.4-10.2) mg/dL 10/08/21 10/08/21 10/08/21 Range/Units 05:34 05:34 07:28 WBC 11.1 H (3.8-10.6) k/uL RBC 2.96 L (3.80-5.40) m/uL Hgb 9.7 L (11.4-16.0) gm/dL Hct 31.6 L (34.0-46.0) % MCV 106.9 H (80.0-100.0) fL MCHC 30.7 L (31.0-37.0) g/dL Neutrophils # 9.4 H (1.3-7.7) k/uL Chloride 112 H (98-107) mmol/L Creatinine 1.11 H (0.52-1.04) mg/dL POC Glucose (mg/dL) 104 H (75-99) mg/dL Calcium 7.3 L (8.4-10.2) mg/dL
[2021-10-08] MEDS: MAGNESIUM SULFATE-D5W PMX 1 GM in DEXTROSE/WATER 1 100ML.BAG IVPB SCH ×2 (12:41→14:54)
[2021-10-08 12:43] LABS: Glucose,Whole Blood 101 mg/dL (75-99)
--- NOTE | 2021-10-08 12:49 | P.PN ---
Subjective Progress Note Date: 10/08/21 CHIEF COMPLAINT: Sigmoid colon tumor HISTORY OF PRESENT ILLNESS: Postoperative day #7 status post exploratory laparotomy, sigmoid colectomy with end colostomy, partial cystectomy, left salpingectomy, appendectomy and repair of left ureter. Patient is sitting up in bed. She will be working with physical therapy this morning. She reports her pain is controlled. Denies any nausea or vomiting. Her ostomy is functioning. She is tolerating a full liquid diet. Mcfarland catheter is blood-tinged. Afebril e. WBC 13.18 down to 11.1 hemoglobin is up from 9-9.7 and platelets 294 sodium 137 potassium 3.7 creatinine is 1.11 Patient seen and examined with Dr. sams PHYSICAL EXAM: VITAL SIGNS: Reviewed. GENERAL: Well-developed in no acute distress. HEENT: No sclera icterus. Extraocular movements grossly intact. Moist buccal mucosa. Head is atraumatic, normocephalic. ABDOMEN: Soft. Ostomy with stool present. Stoma beefy red. Incisional dressing clean dry and intact. LUZMA drain serosanguineous 40ml NEUROLOGIC: Alert and oriented. Cranial nerves II through XII grossly intact. ASSESSMENT: 1. 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 Signing provider agrees with the documented findings, assessment, and plan of care. Objective - Vital Signs Vital signs: Vital Signs Temp 97.5 F L 10/08/21 12:32 Pulse 69 10/08/21 12:32 Resp 19 10/08/21 12:32 BP 97/62 10/08/21 12:32 Pulse Ox 99 10/08/21 12:32 Intake & Output 10/07/21 10/08/21 10/08/21 18:59 06:59 18:59 Intake Total 600 900 Output Total 200 790 Balance 400 110 Intake: Intake, IV Titration 600 600 Amount Dextrose 5%-0.45% NaCl 1, 600 600 000 ml @ 50 mls/hr IV . Q20H [facility] Rx#:[id number] Oral 300 Output: Drainage 40 Lower Abdomen 40 Urine 750 Stool 200 Other: Voiding Method Indwelling Catheter Indwelling Catheter Indwelling Catheter - Labs CBC & Chem 7: 10/08/21 05:34 10/08/21 05:34 Labs: Abnormal Lab Results - Last 24 Hours (Table) 10/07/21 10/07/21 10/08/21 Range/Units 17:14 20:37 05:34 WBC (3.8-10.6) k/uL RBC (3.80-5.40) m/uL Hgb (11.4-16.0) gm/dL Hct (34.0-46.0) % MCV (80.0-100.0) fL MCHC (31.0-37.0) g/dL Neutrophils # (1.3-7.7) k/uL Chloride 112 H (98-107) mmol/L Creatinine 1.11 H (0.52-1.04) mg/dL POC Glucose (mg/dL) 116 H 117 H (75-99) mg/dL Calcium 7.3 L (8.4-10.2) mg/dL 10/08/21 10/08/21 Range/Units 05:34 07:28 WBC 11.1 H (3.8-10.6) k/uL RBC 2.96 L (3.80-5.40) m/uL Hgb 9.7 L (11.4-16.0) gm/dL Hct 31.6 L (34.0-46.0) % MCV 106.9 H (80.0-100.0) fL MCHC 30.7 L (31.0-37.0) g/dL Neutrophils # 9.4 H (1.3-7.7) k/uL Chloride (98-107) mmol/L Creatinine (0.52-1.04) mg/dL POC Glucose (mg/dL) 104 H (75-99) mg/dL Calcium (8.4-10.2) mg/dL
--- NOTE | 2021-10-08 12:55 | P.PN ---
Subjective Underwent revision of a ureteroureterostomy on 10/05, pain improving Minimal output from the LUZMA, denies any flank pain, creatinine stable at 1.1 urine is blood-tinged Objective - Vital Signs Vital signs: Vital Signs Temp 97.5 F L 10/08/21 12:32 Pulse 69 10/08/21 12:32 Resp 19 10/08/21 12:32 BP 97/62 10/08/21 12:32 Pulse Ox 99 10/08/21 12:32 Intake & Output 10/07/21 10/08/21 10/08/21 18:59 06:59 18:59 Intake Total 600 900 Output Total 200 790 Balance 400 110 Intake: Intake, IV Titration 600 600 Amount Dextrose 5%-0.45% NaCl 1, 600 600 000 ml @ 50 mls/hr IV . Q20H [facility] Rx#:[id number] Oral 300 Output: Drainage 40 Lower Abdomen 40 Urine 750 Stool 200 Other: Voiding Method Indwelling Catheter Indwelling Catheter Indwelling Catheter - Constitutional General appearance: Present: no acute distress - Gastrointestinal General gastrointestinal: Present: soft, tenderness (Along the incision). Absent: distended - Genitourinary Genitourinary Comment(s): LUZMA serosanguineous Mcfarland blood-tinged - Psychiatric Psychiatric: Present: A&O x's 3 - Labs CBC & Chem 7: 10/08/21 05:34 10/08/21 05:34 Labs: Abnormal Lab Results - Last 24 Hours (Table) 10/07/21 10/07/21 10/08/21 Range/Units 17:14 20:37 05:34 WBC (3.8-10.6) k/uL RBC (3.80-5.40) m/uL Hgb (11.4-16.0) gm/dL Hct (34.0-46.0) % MCV (80.0-100.0) fL MCHC (31.0-37.0) g/dL Neutrophils # (1.3-7.7) k/uL Chloride 112 H (98-107) mmol/L Creatinine 1.11 H (0.52-1.04) mg/dL POC Glucose (mg/dL) 116 H 117 H (75-99) mg/dL Calcium 7.3 L (8.4-10.2) mg/dL 10/08/21 10/08/21 10/08/21 Range/Units 05:34 07:28 12:41 WBC 11.1 H (3.8-10.6) k/uL RBC 2.96 L (3.80-5.40) m/uL Hgb 9.7 L (11.4-16.0) gm/dL Hct 31.6 L (34.0-46.0) % MCV 106.9 H (80.0-100.0) fL MCHC 30.7 L (31.0-37.0) g/dL Neutrophils # 9.4 H (1.3-7.7) k/uL Chloride (98-107) mmol/L Creatinine (0.52-1.04) mg/dL POC Glucose (mg/dL) 104 H 101 H (75-99) mg/dL Calcium (8.4-10.2) mg/dL Assessment and Plan Assessment: S/P revesion of left ureteroureterostomy on 10/05 and cystotomy repair on 10/01 -Keep Mcfarland in place, we'll need to keep in place for 14 days -Keep LUZMA in place, monitor output -Stent will stay in for 6 weeks -Ambulate
--- NOTE | 2021-10-08 15:15 | P.PN ---
Subjective Progress Note Date: 10/08/21 Principal diagnosis: Mass Pathology did not reveal evidence of malignancy, sent for second opinion review. Dr. Carty has discussed in detail with patient and answered all her questions Objective - Vital Signs Vital signs: Vital Signs Temp 97.5 F L 10/08/21 12:32 Pulse 69 10/08/21 12:32 Resp 19 10/08/21 12:32 BP 97/62 10/08/21 12:32 Pulse Ox 99 10/08/21 12:32 Intake & Output 10/07/21 10/08/21 10/08/21 18:59 06:59 18:59 Intake Total 600 900 Output Total 200 790 Balance 400 110 Intake: Intake, IV Titration 600 600 Amount Dextrose 5%-0.45% NaCl 1, 600 600 000 ml @ 50 mls/hr IV . Q20H [facility] Rx#:[id number] Oral 300 Output: Drainage 40 Lower Abdomen 40 Urine 750 Stool 200 Other: Voiding Method Indwelling Catheter Indwelling Catheter Indwelling Catheter - Exam - Constitutional General appearance: Present: average body habitus, cooperative, mild distress - EENT Eyes: Present: anicteric sclerae, EOMI ENT: Present: hearing grossly normal - Respiratory Respiratory: bilateral: CTA - Cardiovascular Rhythm: regular Heart sounds: normal: S1, S2 Abnormal Heart Sounds: Absent: systolic murmur, diastolic murmur, rub, S3 Gallop, S4 Gallop, click, other - Peripheral edema leg Peripheral Edema: bilateral: Trace - Gastrointestinal Gastrointestinal Comment(s): Abdominal bandages in place, no unusual drainage noted, no unusual swelling or bruising noted of the abdomen General gastrointestinal: Present: soft - Integumentary Integumentary: Present: pale - Musculoskeletal Musculoskeletal: Present: generalized weakness - Psychiatric Psychiatric: Present: A&O x's 3, appropriate affect, intact judgment & insight - Labs CBC & Chem 7: 10/08/21 05:34 10/08/21 05:34 Labs: Abnormal Lab Results - Last 24 Hours (Table) 10/07/21 10/07/21 10/08/21 Range/Units 17:14 20:37 05:34 WBC (3.8-10.6) k/uL RBC (3.80-5.40) m/uL Hgb (11.4-16.0) gm/dL Hct (34.0-46.0) % MCV (80.0-100.0) fL MCHC (31.0-37.0) g/dL Neutrophils # (1.3-7.7) k/uL Chloride 112 H (98-107) mmol/L Creatinine 1.11 H (0.52-1.04) mg/dL POC Glucose (mg/dL) 116 H 117 H (75-99) mg/dL Calcium 7.3 L (8.4-10.2) mg/dL 10/08/21 10/08/21 10/08/21 Range/Units 05:34 07:28 12:41 WBC 11.1 H (3.8-10.6) k/uL RBC 2.96 L (3.80-5.40) m/uL Hgb 9.7 L (11.4-16.0) gm/dL Hct 31.6 L (34.0-46.0) % MCV 106.9 H (80.0-100.0) fL MCHC 30.7 L (31.0-37.0) g/dL Neutrophils # 9.4 H (1.3-7.7) k/uL Chloride (98-107) mmol/L Creatinine (0.52-1.04) mg/dL POC Glucose (mg/dL) 104 H 101 H (75-99) mg/dL Calcium (8.4-10.2) mg/dL Assessment and Plan Plan: - Imaging and Cardiology Abdominal x-ray: report reviewed Assessment and Plan (1) Colonic mass Current Visit: Yes Status: Acute Priority: High Code(s): K63.89 - OTHER SPECIFIED DISEASES OF INTESTINE SNOMED Code(s): 717238758 Plan: Postoperative day #7 status post exploratory laparotomy, sigmoid colectomy with end colostomy, partial cystectomy, left salpingectomy, appendectomy and repair of left ureter. Pathology did not reveal expected malignant diagnosis, sent for second opinion , discussed with patient and will await second reveiwPt questions were answered. F/U appt in chart. Dr. Lopez: I have completed the full history and physical and developed the above impression and plan, agree with dictation, dictated as a ascribe.
[2021-10-08] MEDS: DEXTROSE 5%-0.45% NACL 1,000 ML IV SCH (16:25)
[2021-10-08 16:44] LABS: Glucose,Whole Blood 91 mg/dL (75-99)
[2021-10-08] MEDS: ATORVASTATIN 40 MG TAB PO SCH (21:08)
[2021-10-08] MEDS: APIXABAN 5 MG TAB PO SCH (21:08)
[2021-10-08 21:17] LABS: Glucose,Whole Blood 121 mg/dL (75-99)
--- NOTE | 2021-10-09 02:04 | P.PN ---
Subjective Progress Note Date: 10/08/21 66-year-old female presents to the emergency department with a chief complaint of abdominal pain. Patient states her symptoms started 10 days ago. Describes it as generalized abdominal pain with no radiation. No back pain. She states she had intermittent nausea for the first couple days that has since resolved. No fever, chills, vomiting, or diarrhea. Normal bowel movements with last bowel movement yesterday, nonbloody. Patient has been tolerating oral intake okay however states her appetite has decreased. No burning with urination, increased urinary frequency/urgency, or blood in the urine. No chest pain or shortness of breath. Patient does have history of atrial fibrillation on Libby ling. No upper respiratory symptoms or recent sick contacts. No previous abdominal surgeries. Patient does admit to tobacco use with [id number] history. She denies family history of aneurysm. CT is significant for a suspected partial large bowel obstruction secondary to eccentric bowel wall thickening of the sigmoid colon which is suspicious for primary malignancy. EKG revealed atrial fibrillation with rapid ventricular response; patient was started on IV Cardizem Patient continues to have abdominal distention and pain; no bowel movements; general surgery on board and planning to repeat abdominal x-ray with tentative plan for partial colectomy tomorrow Patient remains in atrial fibrillation with controlled ventricular response at this time; no anticoagulation therapy for anticipated surgery in next 24-48 hours; echocardiogram reveals normal LV function and no significant valvular abnormalities; cardiology on board and recommending to continue with Lasix 20 mg daily for mild fluid overload; Resume the care of the patient 10/01/2021. Patient awake and alert. She still with abdominal complaint and pain and discomfort with no bowel movement. Surgery team are planning for exploratory laparotomy with possible diverting colostomy and possible sigmoid resection. Weatherization Director team on the case also for preop evaluation and also for her A. fib. Currently rate controlled on metoprolol and oral Lasix. She is on D5 half-normal saline at 50 mL per hour, Flagyl and Zosyn. Labs look stable. 10/02/2021 Patient with sigmoid mass status post exploratory laparotomy with Sigmoid colectomy with end colostomy, Partial cystectomy, Left salpingectomy, Appendectomy, Repair of left ureterPeriod secondary to left ureteral injury during surgical resection. Patient vomited by urologist and had left ureteral repair. Currently has a Neal catheter was recommendation to stay for 2 weeks. Post operatively patient got intubated. Patient currently remains on mechanical ventilation She remains on Zosyn, Eliquis on hold. Patient is started on Pepcid and subcu heparin.. She received also normal saline boluses 10/03/2021 Today patient in the ICU status post extubation. She is postoperative day #2. She still nothing by mouth, awake but very weak. Her colostomy back in a Place, no bowel movement yet. Also Neal catheter with PATRICE drain with more than 200 of serosanguineous fluid. Her pathology is pending, Eliquis still on hold, patient kept on Flagyl and Zos yn and IV fluids. Patient received 1 L of normal saline for hypertension, also her metoprolol dose lowered to 25 mg. 10/04/2021 Patient clinically is improving gradually, her pain at the surgery site is country of, she is fully awake and oriented, she does not look in distress. Her colostomy tube in the left lower quadrant abdomen with some small amounts light brown stool. Neal catheter in place with yellow urine. A follow-up for stent urologist recommended CT of the abdomen without contrast was showing mild positioning of the double J stent, CT urogram is ordered and is pending, neurology following closely. Other that clinically she is doing generally well, improving slowly. She kept nothing by mouth with surgery team following him closely as well. Patient's can go to the general medical floor today. Continue with Flagyl and Zosyn, D5 half-normal saline at 50 mL/h and metoprolol increased to 25 g 3 times a day today. She is also a small dose of oral Lasix while Eliquis still on hold 10/05/2021 Patient remains nothing by mouth, colostomy with no bowel movement or gas. Neal catheter in place. She remains on D5 half-normal saline at 50 mL per hour She looks tired but no distress. Hemodynamically stable. Labs reviewed with WBC 8.2, creatinine 1.1. CT urogram: Extraluminal secreted IV contrast most pronounced along the left ureter with some also appearing near the distal right ureter on delayed imaging. This is favored to represent a left ureteral injury with layering in the pelvis. Right ureteral injury is not entirely exclude it.A left ureteral stent is seen. urologist on the case 10/06/2021 patient remains clinically same with no significant change, she is tired looking, she still nothing by mouth. Colostomy back still not showing bowel movements today however it has bowel movement yesterday Neal catheter in place. Patient followed closely by urology service Pathology did not show final diagnosis and the specimen was sent to [facility] by pathologist for consultation. Oncology team on the case also. Continue with Zosyn, Flagyl and D5 half-normal saline at 50 mL per hour. 10/07/2021 Patient generally doing well and she is improving gradually and slowly. His morning she was still nothing by mouth but surgery team are planning to start her on diet and liquid diet today. Colostomy back is working and last time and it was last night. Neal catheter in place with some dark colored urine which is expected from her recent surgery and some bleeding. Repeat chest x-ray showing pleural effusion with atelectasis. Pending pathology which is sent then [facility] for further consultation. She remains on Flagyl and Zosyn and D5 half-normal saline at 50. Eliquis on hold 10/08/2021 Patient is seen and evaluated this morning with multiple medical consultations following as patient is status post sigmoid mass status post exploratory laparotomy with Sigmoid colectomy with end colostomy, Partial cystectomy, Left salpingectomy, Appendectomy, Repair of left ureter. Patient being followed by urology as well and currently has a Neal catheter was recommendation to stay for 2 weeks. Patient with some hematuria noted in the neal and hemoglobin is currently stable and will resume eliquis with cardiology following and ok per surgery recommendations and will monitor labs closely. Oncology following as well and awaiting second opinion of patho that was sent to [facility]. Patient with continued weakness and working with PT/OT therapy. Magnesium mildly low at 1.7 and will replace per protocol. Patient currently on 2L via NC with pulmonary following as well. Recommend a dose of IV lasix. Encouraged incentive spirometer use. Patient denies chest pain or worsening shortness of breath. Patient is afebrile. Patient started on diet and tolerating and advancing slowly per surgery recommendations. Review of systems: Constitutional: No reports of fatigue, fever, or chills Cardiovascular: No reports of chest pain or palpitations Respiratory: No reports of worsening shortness of breath or cough GI: No reports of nausea, vomiting, or diarrhea : No reports of dysuria or retention Neurovascular: reports of generalized weakness All medications have been reviewed Active Medications Hydrocodone Bitart/Acetaminophen (Hydrocodone/Apap 5-325mg 1 Each Tab) 1 each PO Q4HR PRN PRN Reason: Pain Last Admin: 10/08/21 09:45 Dose: 1 each Documented by: Albuterol/Ipratropium (Ipratropium-Albuterol 3 Ml Neb) 3 ml INHALATION RT-QID PRN PRN Reason: Shortness Of Breath Or Wheezing Last Admin: 09/29/21 10:51 Dose: 3 ml Documented by: Atorvastatin Calcium (Atorvastatin 40 Mg Tab) 40 mg PO HS [facility] Last Admin: 10/07/21 20:29 Dose: 40 mg Documented by: Benzocaine/Menthol (Benzocaine/Menthol Lozeng 1 Each Lozenge) 1 each MUCOUS MEM Q1HR PRN PRN Reason: Sore Throat Digoxin (Digoxin 125 Mcg Tab) 125 mcg PO DAILY [facility] Last Admin: 10/08/21 08:05 Dose: 125 mcg Documented by: Famotidine (Famotidine 20 Mg/2 Ml Vial) 20 mg IV DAILY [facility] Last Admin: 10/08/21 08:05 Dose: 20 mg Documented by: Heparin Sodium (Porcine) (Heparin Sodium,Porcine/Pf 5,000 Unit/0.5 Ml Syringe) 5,000 unit SQ Q8HR [facility] Last Admin: 10/08/21 08:06 Dose: 5,000 unit Documented by: Hydromorphone HCl (Hydromorphone 1 Mg/Ml 1 Ml Syringe) 1 mg IVP Q6HR PRN PRN Reason: Pain Last Admin: 10/06/21 09:10 Dose: 1 mg Documented by: Hydromorphone HCl (Hydromorphone 1 Mg/Ml 1 Ml Syringe) 1 mg IVP Q3HR PRN PRN Reason: Severe Pain Last Admin: 10/06/21 19:14 Dose: 1 mg Documented by: Hydromorphone HCl (Hydromorphone 0.5 Mg/0.5 Ml Syringe) 0.25 mg IVP Q1HR PRN PRN Reason: Pain Last Admin: 10/06/21 05:01 Dose: 0.25 mg Documented by: Dextrose/Sodium Chloride (Dextrose 5%-1/2ns Iv Soln) 1,000 mls @ 10 mls/hr IV .Q24H [facility] Last Admin: 10/07/21 20:23 Dose: 50 mls/hr Documented by: Insulin Aspart (Insulin Aspart (Novolog) 100 Unit/Ml Vial) 0 unit SQ ACHS [facility]; Protocol Last Admin: 10/08/21 07:30 Dose: Not Given Documented by: Ketorolac Tromethamine (Ketorolac 15 Mg/Ml 1 Ml Vial) 15 mg IVP Q6HR [facility] Stop: 10/09/21 10:02 Last Admin: 10/08/21 05:42 Dose: 15 mg Documented by: Methocarbamol (Methocarbamol 750 Mg Tab) 750 mg PO TID [facility] Last Admin: 10/08/21 08:05 Dose: 750 mg Documented by: Metoclopramide HCl (Metoclopramide 5 Mg/Ml 2 Ml Vial) 10 mg IVP Q6HR PRN PRN Reason: Nausea and Vomiting Metoprolol Tartrate (Metoprolol Tartrate 25 Mg Tab) 25 mg PO TID [facility] Last Admin: 10/08/21 08:05 Dose: 25 mg Documented by: Miscellaneous Information (Magnesium Replacement Protocol 1 Each Misc) 1 each MISCELLANE DAILY PRN; Protocol PRN Reason: Per Protocol Naloxone HCl (Naloxone 0.4 Mg/Ml 1 Ml Vial) 0.2 mg IV Q2M PRN PRN Reason: Opioid Reversal Ondansetron HCl (Ondansetron 4 Mg/2 Ml Vial) 4 mg IVP Q8HR PRN PRN Reason: Nausea And Vomiting Last Admin: 10/02/21 09:06 Dose: 4 mg Documented by: Physical exam: GENERAL: The patient is alert and oriented x3, not in any acute distress. Well developed, well nourished. HEENT: Pupils are round and equally reacting to light. EOMI. No scleral icterus. No conjunctival pallor. Normocephalic, atraumatic. No pharyngeal erythema. No thyromegaly. CARDIOVASCULAR: S1 and S2 present. No murmurs, rubs, or gallops. PULMONARY: diminished breath sounds bilaterally with , no wheezing or crackles, some scattered rhonchi noted. -ABDOMEN: Soft, mild generalized tenderness and mild generalized distention, normoactive bowel sounds. No palpable organomegaly. Colostomy bag in place, Neal catheter MUSCULOSKELETAL: No joint swelling or deformity. EXTREMITIES: No cyanosis, clubbing, or pedal edema. NEUROLOGICAL: Gross neurological examination did not reveal any focal deficits. diffuse weakness SKIN: No rashes. no petechiae. Assessment: -Sigmoid wall thickening suspicious for sigmoid mass with partial colon obstruction. status post exploratory laparotomy with Sigmoid colectomy with end colostomy, Partial cystectomy, Left salpingectomy, Appendectomy, Repair of left ureter secondary to left ureteral injury during surgical resection -A. fib with RVR, currently rate controlled -Hypertension -Hyperlipidemia -History of COPD, not in acute exacerbation -hypomagnesemia -GI prophylaxis -DVT prophylaxis -Full code Plan: This is a pleasant 66 years old female. status post bowel surgery for her possible colon mass. Also with A. fib. Continue with Flagyl and Zosyn and gentle hydration. Multiple medical consultations following including Pulmonary, Surgery, urology, and cardiology team following. Oncology following as well and Pathology sent to [facility] and awaiting patho report PT/OT: await evaluation as patient is extremely weak and discussed possible ECF. Will repeat am labs and replace electrolytes per protocol. Urology following and patient will continue with indwelling neal catheter with outpatient follow up in 2 weeks. Hematuria noted and hemoglobin is stable. Ok to resume eliquis per surgery and will restart and monitor closely. Due to multiple complex medical issues, prognosis is guarded The impression and plan of care has been dictated by Tamera Ling, Nurse Practitioner as directed. Dr. Suha MD I have performed a history and examination and MDM of this patient, discussed the same with the dictator, and agree with the dictator's assessment and plan as written ,documented as a scribe. Based on total visit time, I have performed more than 50% of the visit. Objective - Vital Signs Vital signs: Vital Signs Temp 97.4 F L 10/08/21 04:57 Pulse 74 10/08/21 08:19 Resp 20 10/08/21 04:57 BP 110/64 10/08/21 08:19 Pulse Ox 99 10/08/21 04:57 Intake & Output 10/07/21 10/08/21 10/08/21 18:59 06:59 18:59 Intake Total 600 900 Output Total 200 790 Balance 400 110 Intake: Intake, IV Titration 600 600 Amount Dextrose 5%-0.45% NaCl 1, 600 600 000 ml @ 50 mls/hr IV . Q20H [facility] Rx#:[id number] Oral 300 Output: Drainage 40 Lower Abdomen 40 Urine 750 Stool 200 Other: Voiding Method Indwelling Catheter Indwelling Catheter - Labs CBC & Chem 7: 10/08/21 05:34 10/08/21 05:34 Labs: Abnormal Lab Results - Last 24 Hours (Table) 10/07/21 10/07/21 10/07/21 Range/Units 05:45 05:45 12:10 WBC 13.18 H (4.50-10.00) X 10*3/uL RBC 2.78 L (4.10-5.20) X 10*6/uL Hgb 9.0 L (12.0-15.0) g/dL Hct 29.2 L (37.2-46.3) % MCV 105.0 H (80.0-97.0) fL MCH 32.4 H (27.0-32.0) pg MCHC 30.8 L (32.0-37.0) g/dL Immature Gran # 0.17 H (0.00-0.04) X 10*3/uL Neutrophils # 10.76 H (1.80-7.70) X 10*3/uL Chloride 112 H (96-109) mmol/L Anion Gap 6.30 L (10.00-18.00) mmol/L Creatinine (0.52-1.04) mg/dL Est GFR (CKD-EPI)AfAm 50.2 L (60.0-200.0) Est GFR (CKD-EPI)NonAf 43.3 L (60.0-200.0) BUN/Creatinine Ratio 9.37 L (12.00-20.00) Ratio POC Glucose (mg/dL) 125 H (75-99) mg/dL Calcium 7.4 L (8.7-10.3) mg/dL 10/07/21 10/07/21 10/08/21 Range/Units 17:14 20:37 05:34 WBC (4.50-10.00) X 10*3/uL RBC (4.10-5.20) X 10*6/uL Hgb (12.0-15.0) g/dL Hct (37.2-46.3) % MCV (80.0-97.0) fL MCH (27.0-32.0) pg MCHC (32.0-37.0) g/dL Immature Gran # (0.00-0.04) X 10*3/uL Neutrophils # (1.80-7.70) X 10*3/uL Chloride 112 H (96-109) mmol/L Anion Gap (10.00-18.00) mmol/L Creatinine 1.11 H (0.52-1.04) mg/dL Est GFR (CKD-EPI)AfAm (60.0-200.0) Est GFR (CKD-EPI)NonAf (60.0-200.0) BUN/Creatinine Ratio (12.00-20.00) Ratio POC Glucose (mg/dL) 116 H 117 H (75-99) mg/dL Calcium 7.3 L (8.7-10.3) mg/dL 10/08/21 10/08/21 Range/Units 05:34 07:28 WBC 11.1 H (4.50-10.00) X 10*3/uL RBC 2.96 L (4.10-5.20) X 10*6/uL Hgb 9.7 L (12.0-15.0) g/dL Hct 31.6 L (37.2-46.3) % MCV 106.9 H (80.0-97.0) fL MCH (27.0-32.0) pg MCHC 30.7 L (32.0-37.0) g/dL Immature Gran # (0.00-0.04) X 10*3/uL Neutrophils # 9.4 H (1.80-7.70) X 10*3/uL Chloride (96-109) mmol/L Anion Gap (10.00-18.00) mmol/L Creatinine (0.52-1.04) mg/dL Est GFR (CKD-EPI)AfAm (60.0-200.0) Est GFR (CKD-EPI)NonAf (60.0-200.0) BUN/Creatinine Ratio (12.00-20.00) Ratio POC Glucose (mg/dL) 104 H (75-99) mg/dL Calcium (8.7-10.3) mg/dL
[2021-10-09] MEDS: KETOROLAC 15 MG/ML 1 ML VIAL IVP SCH ×2 (02:35→09:15)
[2021-10-09] MEDS: HYDROcodone/APAP 5-325MG 1 EACH TAB PO PRN (04:28)
[2021-10-09 07:01] LABS: Methylmalonic Acid 0.22 umol/L (<0.40)
[2021-10-09 07:14] LABS: Glucose,Whole Blood 103 mg/dL (75-99)
--- NOTE | 2021-10-09 07:22 | P.PN ---
Subjective Progress Note Date: 10/09/21 Patient is status post left ureteroureterostomy 10/05/2021. She is doing relatively well. She is starting to eat today. Her vital signs are stable. Her abdomen is relatively soft. Urine output is good. The amount of LUZMA drainage is minimal. She will continue with indwelling catheter for 2 weeks and the ureteral stent on the left side for 6 weeks. We will continue to follow. Objective - Vital Signs Vital signs: Vital Signs Temp 97.5 F L 10/09/21 04:40 Pulse 98 10/09/21 04:40 Resp 18 10/09/21 04:40 BP 123/72 10/09/21 04:40 Pulse Ox 91 L 10/09/21 04:40 Intake & Output 10/08/21 10/09/21 10/09/21 18:59 06:59 18:59 Intake Total 200 Output Total 200 Balance 0 Weight 72 kg Intake: Intake, IV Titration 200 Amount Magnesium Sulfate-D5w Pmx 200 1 gm In Dextrose/Water 1 100ml.bag @ 100 mls/hr IVPB Q1H [facility] Rx#: [id number] Output: Drainage 60 Lower Abdomen 60 Stool 140 Other: Voiding Method Indwelling Catheter Indwelling Catheter - Labs CBC & Chem 7: 10/08/21 05:34 10/08/21 05:34 Labs: Abnormal Lab Results - Last 24 Hours (Table) 10/08/21 10/08/21 10/08/21 Range/Units 07:28 12:41 21:14 POC Glucose (mg/dL) 104 H 101 H 121 H (75-99) mg/dL 10/09/21 Range/Units 07:11 POC Glucose (mg/dL) 103 H (75-99) mg/dL
[2021-10-09] MEDS: INSULIN ASPART (NovoLOG) 100 UNIT/ML VIAL SQ SCH ×4 (07:23→20:43)
[2021-10-09 07:43] LABS: Basophils # (A) 0.1 k/uL (0-0.2); Basophils % (A) 1 %; Eosinophils # (A) 0.1 k/uL (0-0.7); Eosinophils % (A) 1 %; HCT 32.7 % (34.0-46.0); HGB 10.1 gm/dL (11.4-16.0); Hypochromasia Slight; Lymphocytes # (A) 0.9 k/uL (1.0-4.8); Lymphocytes % (A) 9 %; MCH 32.6 pg (25.0-35.0); MCV 105.2 fL (80.0-100.0); Macrocytosis Moderate; Mean Platelet Volume 7.6; Monocytes # (A) 0.4 k/uL (0-1.0); Monocytes % (A) 4 %; Neutrophils # (A) 8.1 k/uL (1.3-7.7); Neutrophils % (A) 83 %; Platelet Count 387 k/uL (150-450); RBC 3.11 m/uL (3.80-5.40); RDW 14.2 % (11.5-15.5); WBC 9.8 k/uL (3.8-10.6)
[2021-10-09 08:13] LABS: African American GFR (CKD) 72 (>60 ml/min/1.73 sqM); Anion Gap 5 mmol/L; Blood Urea Nitrogen 12 mg/dL (7-17); Calcium 7.6 mg/dL (8.4-10.2); Carbon Dioxide 23 mmol/L (22-30); Chloride 111 mmol/L (98-107); Glucose 89 mg/dL (74-99); Non-African American GFR(CKD) 62 (>60 ml/min/1.73 sqM); Potassium 4.1 mmol/L (3.5-5.1); Sodium 139 mmol/L (137-145)
[2021-10-09] MEDS: FAMOTIDINE 20 MG/2 ML VIAL IV SCH (09:15)
[2021-10-09] MEDS: APIXABAN 5 MG TAB PO SCH ×2 (09:15→20:48)
[2021-10-09] MEDS: DIGOXIN 125 MCG TAB PO SCH (09:15)
[2021-10-09] MEDS: methocarbamoL 750 MG TAB PO SCH ×3 (09:16→20:48)
[2021-10-09] MEDS: METOPROLOL TARTRATE 25 MG TAB PO SCH ×3 (09:20→20:48)
--- NOTE | 2021-10-09 10:02 | P.PN ---
Subjective This is a pleasant 66-year-old female past medical history significant for persistent atrial fibrillation s/p previous cardioversion in 2019 and recently in 07/2021, chronic nicotine dependence, COPD, coronary artery disease (09/20/21 heart catheterization revealing chronic total occlusion of the RCA with intermediate disease involving the left coronary system 45% stenosis ostial LAD. She follows with Dr. Perez. We have been asked to see in consultation for chest pain and atrial fibrillation with RVR. Patient presents to the emergency department with abdominal pain. CT of the abdomen and pelvis revealed partial large bowel obstruction secondary to eccentric bowel wall thickening of the sigmoid colon. Echocardiogram revealed an EF of 4550%, mild aortic regurgitation, mild mitral regurgitation, mild pulmonary hypertension. 10/05/2021 she underwent exploratory laparotomy, sigmoid colectomy with end colostomy, partial cystectomy, left salpingectomy, appendectomy and repair of left ureter. 10/09/2021 Patient seen and examined at bedside, no acute distress. Denies chest pain or shortness of berath. She continues to be in atrial fibrillation with controlled ventricular rates. Hemodynamically she is stable. Anticoagulation ok to start per surgery and was restarted yesterday. She's currently maintained on atorvastatin 40 mg nightly, digoxin 125mcg daily, Lasix 20 mg daily, metoprolol titrate 50 mg 3 times a day, Eliquis 5mg BID. VITALS: Blood pressure 108/55, heart rate 93, afebrile, saturations 93% on room air GENERAL: In no acute distress. NECK: Supple without JVD or thyromegaly. LUNGS: Breath sounds diminished bases to auscultation bilaterally. Respiration equal and unlabored. No wheezes, rales or rhonchi ABDOMEN: Left lower quadrant colostomy with soft brown stool, Mid abdominal incision clean dry and intact, sahil present. HEART: Irregular rate and rhythm without murmurs, rubs or gallops. S1 and S2 hea rd. EXTREMITIES: Normal range of motion, no edema. No clubbing or cyanosis. Peripheral pulses intact. 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 Hypertension Dyslipidemia PLAN Continue current medications Continue Anticoagulation with Eliquis 5mg BID Continue home dose of digoxin Continue telemetry monitoring No further changes from a cardiology perspective. We'll follow the patient has stated, please reconsult if needed. Follow up ou tpatient with Dr. Perez. Nurse Practitioner note has been reviewed, I agree with a documented findings and plan of care. Patient was seen and examined. Objective - Vital Signs Vital signs: Vital Signs Temp 97.5 F L 10/09/21 04:40 Pulse 93 10/09/21 09:26 Resp 18 10/09/21 04:40 BP 108/55 10/09/21 09:26 Pulse Ox 93 L 10/09/21 09:26 Intake & Output 10/08/21 10/09/21 10/09/21 18:59 06:59 18:59 Intake Total 200 Output Total 200 1400 Balance 0 -1400 Weight 72 kg Intake: Intake, IV Titration 200 Amount Magnesium Sulfate-D5w Pmx 200 1 gm In Dextrose/Water 1 100ml.bag @ 100 mls/hr IVPB Q1H [facility] Rx#: [id number] Output: Drainage 60 Lower Abdomen 60 Urine 1200 Stool 140 200 Other: Voiding Method Indwelling Catheter Indwelling Catheter Indwelling Catheter - Labs CBC & Chem 7: 10/09/21 06:37 10/09/21 06:37 Labs: Abnormal Lab Results - Last 24 Hours (Table) 10/08/21 10/08/21 10/09/21 Range/Units 12:41 21:14 06:37 RBC 3.11 L (3.80-5.40) m/uL Hgb 10.1 L (11.4-16.0) gm/dL Hct 32.7 L (34.0-46.0) % MCV 105.2 H (80.0-100.0) fL Neutrophils # 8.1 H (1.3-7.7) k/uL Lymphocytes # 0.9 L (1.0-4.8) k/uL Chloride (98-107) mmol/L POC Glucose (mg/dL) 101 H 121 H (75-99) mg/dL Calcium (8.4-10.2) mg/dL 10/09/21 10/09/21 Range/Units 06:37 07:11 RBC (3.80-5.40) m/uL Hgb (11.4-16.0) gm/dL Hct (34.0-46.0) % MCV (80.0-100.0) fL Neutrophils # (1.3-7.7) k/uL Lymphocytes # (1.0-4.8) k/uL Chloride 111 H (98-107) mmol/L POC Glucose (mg/dL) 103 H (75-99) mg/dL Calcium 7.6 L (8.4-10.2) mg/dL
--- NOTE | 2021-10-09 10:13 | P.PN ---
Subjective Progress Note Date: 10/09/21 This is a 66-year-old female patient with past a history of smoking, COPD, hypertension, hyperlipidemia, chronic A. fib, coronary artery disease, who presented to the emergency department on 09/28/2021 with chief complaint of abdominal pain which had been ongoing for 10 days prior to presentation. Patien familia was also complaining of intermittent nausea, but no fever, no chills, no vomiting or diarrhea. Denied any blood in the stools. CT of abdomen and pelvis with contrast in the emergency department showed partial large bowel obstruction secondary to extensive bowel wall thickening of the sigmoid colon that was suspicious for primary malignancy. There was a string dilation of the colon and small bowel, there was mild cardiomegaly and hepatic steatosis. Patient had a prior colonoscopy 3 years ago. Admission labs showed normal white count of 4.6, hemoglobin was 16.2, INR was 1.2, electrolytes and renal profile were unremarkable, troponin was negative at less than 0.012, proBNP was 4290, lipase was within normal limits at 75, LFTs were within normal limits, urinalysis showed 1+ ketones, rare bacteria, negative glucose, no clear evidence of infection. Patient recently had a heart catheterization in August 2021 which showed total occlusion of the RCA with intermediate disease involving the left coronary system, and preserved left ventricular systolic function. Patient was started on IV fluids, and antibiotics and surgical consultation was obtained. She was taken to surgery on 10/01/2021, by Dr. Carranza and Dr. Luevano and underwent exploratory laparotomy, sigmoid colectomy with end colostomy, partial cystectomy, left salpingectomy, appendectomy, and repair of left ureter. In the recovery room patient was extubated however she needed to be reintubated in the recovery room in view of difficulty breathing, hypoxia, and insufficient respiratory effort. She was admitted to the intensive care unit following a recent intubation. This morning she remains intubated and on mechanical ventilator, with assist control mode of ventilation with a rate of 18, tidal volume is 350, FiO2 of 40%, and PEEP of 5. Today's blood gas shows a pO2 of 76, pCO2 47, and pH of 7.32 this was done and the above-mentioned ventilator settings, today's chest x-ray showing mild infiltrate and atelectasis at the right lung base which is improved compared old exam, and there is clearing of the pulmonary congestion. Patient is currently on D5 half-normal saline with 20 of potassium at a rate of 125, and improving and at 25 mics per kilo per minute, she did require 2-1/2 L bolus last night for low urine output. She is not requiring any vasopressor support right now. Today's labs have been reviewed White blood cell count is 13, hemoglobin is 12.3, sodium is 137, potassium is 4.1, chloride is 109, BUN is 14, creatinine is 1.07. Urinalysis was repeated showing large amount of blood, moderate leuks, and 15 of white blood cells, patient is on Zosyn for empiric antibiotic coverage. Her surgical biopsy results are still pending. Abdominal incision is covered with a surgical dressing, clean dry and intact, well approximated, patient has left lower quadrant colostomy with no stool or gas. On 10/03/2021 patient seen in follow-up in the intensive care unit, she was successfully weaned and extubated yesterday on 10/02/2021 on postoperative day #1. Today she is awake and alert, oriented 3, she is on 2 L oxygen and pulse ox is 99%, she is breathing comfortably, follow-up chest x-ray is pending but patient denies any shortness of breath, no cough, she been afebrile through the night, blood pressures have been on the lower side or marginal, she is in atrial fibrillation which is chronic for her, and at times she is slightly tachycardic with a rate in the low 100s BPM. IV fluids are D5 half-normal saline with 20 of potassium at a rate of 125 ML per hour, no nasal pressors. She remains on Zosyn for empiric antibiotic coverage. Abdomen has postoperative tenderness, left lower quadrant colostomy is producing brown stool. Lung sounds are clear, diminished, incentive spirometer effort is 1000 mL today. Urine output through the night has been marginal, in the order of 25-30 ML per hour, blood pressures have been marginal, patient's Lasix was placed on hold, recent echocardiogram showed LV function with EF of 45-50%. Today's labs have been reviewed, white blood cell count is 10.1, hemoglobin is 11.1, platelet count is 193, sodium is 137, potassium is 4.5, chloride is 113, CO2 is 18, BUN is 14, creatinine is 1.14. Patient has been tolerating ice chips, and popsicles, but she has had very poor oral intake and she states she does not feel like taking anything by mouth. No nausea or vomiting. Oral membranes are very dry, no lower extremity edema, lung sounds are clear. Abdominal incision is clean dry and intact, covered with a dressing, LUZMA drain is in place draining serosanguineous output and there has been 595 mL of output from the LUZMA drain over the last 24 hours. On 10/04/2021 patient seen in follow-up in the intensive care unit, she is awake and alert, in no acute distress. She is on 2 L of oxygen satting 95-100%, denies any respiratory difficulty, she needs encouragement and reminded using incentive spirometry, she is achieving 750 on it today. She is tolerating ice chips, she is a bit nauseous, but has had no vomiting. She is on D5 half-normal saline with 20 of potassium at a rate of 130 ML per hour, her colostomy is producing soft brown stool. She remains nothing by mouth except for ice chips and popsicles. LUZMA drain is producing large amount of serous output, patient has produced 720 ML of serous output from the LUZMA drain, there was a question regarding possibility of urine in the LUZMA drain, and for that reason LUZMA drainage was sent for urine creatinine. Abdominal x-ray was obtained today showing left ureteral stent with proximal and partially uncoiled, and abnormally positioned, displaced to the middle skin sahil at the pelvis and surgical drain some borderline distended small bowel loops, and development of some patchy basilar atelectasis versus infiltrate. Today's labs have been reviewed, white blood cell count is 8.9, hemoglobin is 10.7, sodium is 138, potassium is 5.2, chloride is 114, CO2 is 21, BUN is 10 and creatinine is 1.04. Urine output is in the order of 30-40 mL per hour, and this morning it is improved up to 50-100 ML per hour. Patient is developing some mild trace pretibial edema, we'll cut back IV fluids and switch it to D5 half-normal saline at a rate of 50 ML per hour The patient is seen today 10/05/2021 in follow-up on the regular medical floor. She is currently sitting up in bed. Awake and alert in no acute distress. She denies any worsening shortness of breath, cough or congestion. She is maintaining good O2 saturations in the 90s on 2 L/m per nasal cannula. She has normal saline running at 50 MLS per hour. She remains nothing by mouth. She is working with the incentive spirometer. Follow up computed tomography scan of the abdomen revealed malpositioned double-J stent with the upper end likely within the left renal vein/IVC. Suspect injury along the left ureterovesical junction with multiple pelvic air bubbles which could be related to acute postoperative changes. Follow-up urogram revealed extraluminal excreted IV contrast most pronounced along the left ureter with some also. Near the distal right ureter. Favored to represent a left ureteral injury with layering in the pelvis. Underlying right ureteral injury not excluded. Left ureteral stent proximal pigtail within the IVC is seen in prior. Urology is aware and planning possible ureterureterostomy revision. Urine culture had revealed no growth. White count 8.2. Hemoglobin 9.8. Platelets 199. Sodium 141. Potassium 4.8. BUN 8.5. Creatinine 1.1. She is continued on Flagyl and Zosyn. Heparin for DVT prophylaxis. D5W with half-normal saline at 50 MLS per hour. The patient is seen today 10/06/2021 in follow-up on the regular medical floor. She is currently resting fairly comfortable in bed. Awake and alert in no acute distress. She is maintaining O2 saturations in the mid 90s on 2 L/m per nasal cannula. Afebrile. She did undergo a exploratory laparotomy with revision of the left ureteroureterostomy and stent exchange on the left. LUZMA drain in place. Mcfarland catheter remains in place. Currently in a positive balance of 980 ML's. Chest x-ray reveals increasing moderate right and small left pleural effusions with adjacent atelectasis with some background mild CHF/pulmonary vascular congestion. She is currently on Zosyn and Flagyl. White count 17.4. Hemoglobin 10.6. Glucose 106. Iron 13. Transferrin 60.7. Ferritin 292. She is currently on IV fluids of D5.45 at 50 MLS per hour. The patient is seen today 10/09/2021 in follow-up on the regular medical floor. She is currently sitting up in bed. Awake and alert in no acute distress. She is feeling quite a bit better. She is maintaining O2 saturations in the 90s on room air. She's been afebrile. She is tolerating a full liquid diet. Her urine output is adequate. The plan is for Mcfarland catheter remain in place for 2 weeks and the stent to the left ureteral for 6 weeks per urology. White count 9.8. H emoglobin 10.1. Sodium 139. Potassium 4.1. Chloride 111. Bicarb 23. BUN 12. Creatinine 0.95. Glucose 103. She is continued on DuoNeb inhalations. Continuing to work with the incentive spirometer. Remains in atrial fibrillation. Anticoagulated with Eliquis. Objective - Vital Signs Vital signs: Vital Signs Temp 97.5 F L 10/09/21 04:40 Pulse 93 10/09/21 09:26 Resp 18 10/09/21 04:40 BP 108/55 10/09/21 09:26 Pulse Ox 93 L 10/09/21 09:26 Intake & Output 10/08/21 10/09/21 10/09/21 18:59 06:59 18:59 Intake Total 200 Output Total 200 1400 Balance 0 -1400 Weight 72 kg Intake: Intake, IV Titration 200 Amount Magnesium Sulfate-D5w Pmx 200 1 gm In Dextrose/Water 1 100ml.bag @ 100 mls/hr IVPB Q1H [facility] Rx#: [id number] Output: Drainage 60 Lower Abdomen 60 Urine 1200 Stool 140 200 Other: Voiding Method Indwelling Catheter Indwelling Catheter Indwelling Catheter - Exam GENERAL EXAM: Awake, pleasant 66-year-old female, on room air and the pulse ox of 93%, comfortable in no apparent distress. HEAD: Normocephalic/atraumatic. EYES: Normal reaction of pupils, equal size. Conjunctiva pink, sclera white. NOSE: Clear with pink turbinates. THROAT: No erythema or exudates. NECK: No masses, no JVD, no thyroid enlargement, no adenopathy. CHEST: No chest wall deformity. Symmetrical expansion. LUNGS: Equal air entry with crackles in the right lung base. CVS: Irregular rate and rhythm, normal S1 and S2, no gallops, no murmurs, no rubs ABDOMEN: Soft, nontender. Left lower quadrant colostomy in place producing soft brown stool, Mid abdominal incision below the umbilicus is clean dry and intact, sahil are intact, covered with surgical dressing, LUZMA drain with serosanguineous drainage, compressed and draining. No hepatosplenomegaly, normal bowel sounds, no guarding or rigidity. EXTREMITIES: No clubbing, no edema, no cyanosis, 2+ pulses and upper and lower extremities. MUSCULOSKELETAL: Muscle strength and tone normal. SPINE: No scoliosis or deformity SKIN: No rashes CENTRAL NERVOUS SYSTEM: Awake and alert, oriented 3. No focal deficits, tone is normal in all 4 extremities. - Labs CBC & Chem 7: 10/09/21 06:37 10/09/21 06:37 Labs: Abnormal Lab Results - Last 24 Hours (Table) 10/08/21 10/08/21 10/09/21 Range/Units 12:41 21:14 06:37 RBC 3.11 L (3.80-5.40) m/uL Hgb 10.1 L (11.4-16.0) gm/dL Hct 32.7 L (34.0-46.0) % MCV 105.2 H (80.0-100.0) fL Neutrophils # 8.1 H (1.3-7.7) k/uL Lymphocytes # 0.9 L (1.0-4.8) k/uL Chloride (98-107) mmol/L POC Glucose (mg/dL) 101 H 121 H (75-99) mg/dL Calcium (8.4-10.2) mg/dL 10/09/21 10/09/21 Range/Units 06:37 07:11 RBC (3.80-5.40) m/uL Hgb (11.4-16.0) gm/dL Hct (34.0-46.0) % MCV (80.0-100.0) fL Neutrophils # (1.3-7.7) k/uL Lymphocytes # (1.0-4.8) k/uL Chloride 111 H (98-107) mmol/L POC Glucose (mg/dL) 103 H (75-99) mg/dL Calcium 7.6 L (8.4-10.2) mg/dL Assessment and Plan Assessment: 1 Acute hypoxic and hypercapnic respiratory failure following surgical procedure possibly related to procedural sedation and history of COPD, and patient had to be reintubated in the recovery room following exploratory laparotomy, sigmoid colectomy, partial cystectomy, left salpingectomy, appendectomy and repair of the left ureter on 10/01/2021. Returned to the OR on 10/05/2021 for a revision of the left ureteral ureterostomy and stent exchange. Chest x-ray showing some increasing pleural effusion and pulmonary vascular congestion right greater than left. Received Lasix yesterday. Completed Zosyn and Flagyl. 2 Colon obstruction, related to large colon tumor of the sigmoid colon invading bladder and left salpinx, status post exploratory lap, sigmoid colectomy with end colostomy, partial cystectomy, left salpingectomy, appendectomy, and repair of the left ureter on 10/01/2021 3 Hematuria with computed tomography scan of the abdomen and pelvis revealing a malpositioned double-J stent with the upper end likely within the left renal vein/IVC. Suspect injury along the left ureterovesicular junction with multiple pelvic air bubbles possibly postop changes. Urogram revealed extraluminal excreted IV contrast most pronounced along the left ureter with some also appearing near the distal right ureter. Favored to represent a left ureteral injury with layering in the pelvis. Underlying right ureteral injury not excluded. Returned to the OR on 10/05/2021 for a revision of the left ureteral ureterostomy and stent exchange. 4 Hypotension, related to hypovolemia, improved with IV fluid boluses 5 History of COPD 6 Former smoker 7 Coronary artery disease 8 Chronic A. fib on Eliquis which is resumed 9 Hypertension 10 Hyperlipidemia Plan: The patient was seen and evaluated Labs and medications reviewed Urine output adequate Encouraged regarding the increased use the incentive spirometer Increase her activity as tolerated Completed Zosyn and Flagyl Follow-up chest x-ray pending We will continue to follow I have personally seen and examined the patient, performed the documentation and the assessment and plan as written. Number of minutes spent on the visit: 10.
[2021-10-09 11:22] LABS: Glucose,Whole Blood 110 mg/dL (75-99)
--- NOTE | 2021-10-09 14:05 | P.PN ---
Subjective Progress Note Date: 10/09/21 CHIEF COMPLAINT: Sigmoid colon tumor HISTORY OF PRESENT ILLNESS: Postoperative day #8 status post exploratory laparotomy, sigmoid colectomy with end colostomy, partial cystectomy, left salpingectomy, appendectomy and repair of left ureter. Patient is sitting up in bed. She reports her pain is controlled. She is tolerating a diet. Her ostomy is functioning. Mcfarland catheter in place with jesus blood. Her Elilquis was restarted yesterday. Afebrile WBC is 9.8 hemoglobin is up from 9.7-10.1 platelets are 387 sodium 139 potassium 4.1 creatinine 0.95 magnesium 2.2 Patient followed by oncology service. Pathology did not reveal evidence of malignancy and has been sent for second opinion. Patient seen and examined with Dr. sams PHYSICAL EXAM: VITAL SIGNS: Reviewed. GENERAL: Well-developed in no acute distress. HEENT: No sclera icterus. Extraocular movements grossly intact. Moist buccal mucosa. Head is atraumatic, normocephalic. ABDOMEN: Soft. Ostomy with stool present. Stoma beefy red. Incision clean dry and intact. LUZMA drain serosanguineous 20ml NEUROLOGIC: Alert and oriented. Cranial nerves II through XII grossly intact. ASSESSMENT: 1. 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 Signing provider agrees with the documented findings, assessment, and plan of care. Objective - Vital Signs Vital signs: Vital Signs Temp 97.4 F L 10/09/21 11:17 Pulse 87 10/09/21 11:17 Resp 18 10/09/21 11:17 BP 104/60 10/09/21 11:17 Pulse Ox 92 L 10/09/21 11:17 Intake & Output 10/08/21 10/09/21 10/09/21 18:59 06:59 18:59 Intake Total 200 Output Total 200 1400 Balance 0 -1400 Weight 72 kg Intake: Intake, IV Titration 200 Amount Magnesium Sulfate-D5w Pmx 200 1 gm In Dextrose/Water 1 100ml.bag @ 100 mls/hr IVPB Q1H [facility] Rx#: [id number] Output: Drainage 60 Lower Abdomen 60 Urine 1200 Stool 140 200 Other: Voiding Method Indwelling Catheter Indwelling Catheter Indwelling Catheter - Labs CBC & Chem 7: 10/09/21 06:37 10/09/21 06:37 Labs: Abnormal Lab Results - Last 24 Hours (Table) 10/08/21 10/09/21 10/09/21 Range/Units 21:14 06:37 06:37 RBC 3.11 L (3.80-5.40) m/uL Hgb 10.1 L (11.4-16.0) gm/dL Hct 32.7 L (34.0-46.0) % MCV 105.2 H (80.0-100.0) fL Neutrophils # 8.1 H (1.3-7.7) k/uL Lymphocytes # 0.9 L (1.0-4.8) k/uL Chloride 111 H (98-107) mmol/L POC Glucose (mg/dL) 121 H (75-99) mg/dL Calcium 7.6 L (8.4-10.2) mg/dL 10/09/21 10/09/21 Range/Units 07:11 11:21 RBC (3.80-5.40) m/uL Hgb (11.4-16.0) gm/dL Hct (34.0-46.0) % MCV (80.0-100.0) fL Neutrophils # (1.3-7.7) k/uL Lymphocytes # (1.0-4.8) k/uL Chloride (98-107) mmol/L POC Glucose (mg/dL) 103 H 110 H (75-99) mg/dL Calcium (8.4-10.2) mg/dL
--- NOTE | 2021-10-09 14:07 | P.PN ---
Subjective Progress Note Date: 10/09/21 66-year-old female presents to the emergency department with a chief complaint of abdominal pain. Patient states her symptoms started 10 days ago. Describes it as generalized abdominal pain with no radiation. No back pain. She states she had intermittent nausea for the first couple days that has since resolved. No fever, chills, vomiting, or diarrhea. Normal bowel movements with last bowel movement yesterday, nonbloody. Patient has been tolerating oral intake okay however states her appetite has decreased. No burning with urination, increased urinary frequency/urgency, or blood in the urine. No chest pain or shortness of breath. Patient does have history of atrial fibrillation on Libby ling. No upper respiratory symptoms or recent sick contacts. No previous abdominal surgeries. Patient does admit to tobacco use with [id number] history. She denies family history of aneurysm. CT is significant for a suspected partial large bowel obstruction secondary to eccentric bowel wall thickening of the sigmoid colon which is suspicious for primary malignancy. EKG revealed atrial fibrillation with rapid ventricular response; patient was started on IV Cardizem Patient continues to have abdominal distention and pain; no bowel movements; general surgery on board and planning to repeat abdominal x-ray with tentative plan for partial colectomy tomorrow Patient remains in atrial fibrillation with controlled ventricular response at this time; no anticoagulation therapy for anticipated surgery in next 24-48 hours; echocardiogram reveals normal LV function and no significant valvular abnormalities; cardiology on board and recommending to continue with Lasix 20 mg daily for mild fluid overload; Resume the care of the patient 10/01/2021. Patient awake and alert. She still with abdominal complaint and pain and discomfort with no bowel movement. Surgery team are planning for exploratory laparotomy with possible diverting colostomy and possible sigmoid resection. Rn Case Manager Hospice team on the case also for preop evaluation and also for her A. fib. Currently rate controlled on metoprolol and oral Lasix. She is on D5 half-normal saline at 50 mL per hour, Flagyl and Zosyn. Labs look stable. 10/02/2021 Patient with sigmoid mass status post exploratory laparotomy with Sigmoid colectomy with end colostomy, Partial cystectomy, Left salpingectomy, Appendectomy, Repair of left ureterPeriod secondary to left ureteral injury during surgical resection. Patient vomited by urologist and had left ureteral repair. Currently has a Neal catheter was recommendation to stay for 2 weeks. Post operatively patient got intubated. Patient currently remains on mechanical ventilation She remains on Zosyn, Eliquis on hold. Patient is started on Pepcid and subcu heparin.. She received also normal saline boluses 10/03/2021 Today patient in the ICU status post extubation. She is postoperative day #2. She still nothing by mouth, awake but very weak. Her colostomy back in a Place, no bowel movement yet. Also Neal catheter with PATRICE drain with more than 200 of serosanguineous fluid. Her pathology is pending, Eliquis still on hold, patient kept on Flagyl and Zos yn and IV fluids. Patient received 1 L of normal saline for hypertension, also her metoprolol dose lowered to 25 mg. 10/04/2021 Patient clinically is improving gradually, her pain at the surgery site is country of, she is fully awake and oriented, she does not look in distress. Her colostomy tube in the left lower quadrant abdomen with some small amounts light brown stool. Neal catheter in place with yellow urine. A follow-up for stent urologist recommended CT of the abdomen without contrast was showing mild positioning of the double J stent, CT urogram is ordered and is pending, neurology following closely. Other that clinically she is doing generally well, improving slowly. She kept nothing by mouth with surgery team following him closely as well. Patient's can go to the general medical floor today. Continue with Flagyl and Zosyn, D5 half-normal saline at 50 mL/h and metoprolol increased to 25 g 3 times a day today. She is also a small dose of oral Lasix while Eliquis still on hold 10/05/2021 Patient remains nothing by mouth, colostomy with no bowel movement or gas. Neal catheter in place. She remains on D5 half-normal saline at 50 mL per hour She looks tired but no distress. Hemodynamically stable. Labs reviewed with WBC 8.2, creatinine 1.1. CT urogram: Extraluminal secreted IV contrast most pronounced along the left ureter with some also appearing near the distal right ureter on delayed imaging. This is favored to represent a left ureteral injury with layering in the pelvis. Right ureteral injury is not entirely exclude it.A left ureteral stent is seen. urologist on the case 10/06/2021 patient remains clinically same with no significant change, she is tired looking, she still nothing by mouth. Colostomy back still not showing bowel movements today however it has bowel movement yesterday Neal catheter in place. Patient followed closely by urology service Pathology did not show final diagnosis and the specimen was sent to [facility] by pathologist for consultation. Oncology team on the case also. Continue with Zosyn, Flagyl and D5 half-normal saline at 50 mL per hour. 10/07/2021 Patient generally doing well and she is improving gradually and slowly. His morning she was still nothing by mouth but surgery team are planning to start her on diet and liquid diet today. Colostomy back is working and last time and it was last night. Neal catheter in place with some dark colored urine which is expected from her recent surgery and some bleeding. Repeat chest x-ray showing pleural effusion with atelectasis. Pending pathology which is sent then [facility] for further consultation. She remains on Flagyl and Zosyn and D5 half-normal saline at 50. Eliquis on hold 10/08/2021 Patient is seen and evaluated this morning with multiple medical consultations following as patient is status post sigmoid mass status post exploratory laparotomy with Sigmoid colectomy with end colostomy, Partial cystectomy, Left salpingectomy, Appendectomy, Repair of left ureter. Patient being followed by urology as well and currently has a Neal catheter was recommendation to stay for 2 weeks. Patient with some hematuria noted in the neal and hemoglobin is currently stable and will resume eliquis with cardiology following and ok per surgery recommendations and will monitor labs closely. Oncology following as well and awaiting second opinion of patho that was sent to [facility]. Patient with continued weakness and working with PT/OT therapy. Magnesium mildly low at 1.7 and will replace per protocol. Patient currently on 2L via NC with pulmonary following as well. Recommend a dose of IV lasix. Encouraged incentive spirometer use. Patient denies chest pain or worsening shortness of breath. Patient is afebrile. Patient started on diet and tolerating and advancing slowly per surgery recommendations. 10/09/2021 Patient is seen in follow-up this morning with no acute overnight issues noted. Multiple medical consultations including oncology, urology, pulmonary following closely and chest x-ray ordered and pending. Patient is currently on room air and tolerating oxygen saturations above 93% and denies any shortness of breath. Patient denies chest pain and is tolerating diet. Patient is also been seen and evaluated by cardiology recommending resuming anticoagulant which has been done. Patient with noted hematuria in the Neal and has been evaluated by urology and this is noted to be in expected outcome of recent surgery. Patient also with left ureteral stent and will require outpatient follow-up in 6 weeks. Patient is to continue with indwelling Neal catheter and will follow-up with repeat labs. Hemoglobin is stable at 10.1 today and BMP within normal limits. Magnesium is 2.2. Patient encouraged increased activity as tolerated although continues with weakness physical therapy has evaluated the patient recommending subacute rehab and social work following as patient has been accepted to [facility] and requiring insurance authorization. Will discuss with other consultations about treatment plan moving forward with possible discharge to ECF in 24 hours. Review of systems: Constitutional: No reports of fatigue, fever, or chills Cardiovascular: No reports of chest pain or palpitations Respiratory: No reports of worsening shortness of breath or cough GI: No reports of nausea, vomiting, or diarrhea : No reports of dysuria or retention Neurovascular: reports of generalized weakness All medications have been reviewed Active Medications Hydrocodone Bitart/Acetaminophen (Hydrocodone/Apap 5-325mg 1 Each Tab) 1 each PO Q4HR PRN PRN Reason: Pain Last Admin: 10/09/21 04:28 Dose: 1 each Documented by: Albuterol/Ipratropium (Ipratropium-Albuterol 3 Ml Neb) 3 ml INHALATION RT-QID PRN PRN Reason: Shortness Of Breath Or Wheezing Last Admin: 09/29/21 10:51 Dose: 3 ml Documented by: Apixaban (Apixaban 5 Mg Tab) 5 mg PO BID [facility]; Protocol Last Admin: 10/09/21 09:15 Dose: 5 mg Documented by: Atorvastatin Calcium (Atorvastatin 40 Mg Tab) 40 mg PO HS [facility] Last Admin: 10/08/21 21:08 Dose: 40 mg Documented by: Benzocaine/Menthol (Benzocaine/Menthol Lozeng 1 Each Lozenge) 1 each MUCOUS MEM Q1HR PRN PRN Reason: Sore Throat Digoxin (Digoxin 125 Mcg Tab) 125 mcg PO DAILY [facility] Last Admin: 10/09/21 09:15 Dose: 125 mcg Documented by: Famotidine (Famotidine 20 Mg/2 Ml Vial) 20 mg IV DAILY [facility] Last Admin: 10/09/21 09:15 Dose: 20 mg Documented by: Hydromorphone HCl (Hydromorphone 1 Mg/Ml 1 Ml Syringe) 1 mg IVP Q6HR PRN PRN Reason: Pain Last Admin: 10/06/21 09:10 Dose: 1 mg Documented by: Hydromorphone HCl (Hydromorphone 1 Mg/Ml 1 Ml Syringe) 1 mg IVP Q3HR PRN PRN Reason: Severe Pain Last Admin: 10/06/21 19:14 Dose: 1 mg Documented by: Hydromorphone HCl (Hydromorphone 0.5 Mg/0.5 Ml Syringe) 0.25 mg IVP Q1HR PRN PRN Reason: Pain Last Admin: 10/06/21 05:01 Dose: 0.25 mg Documented by: Dextrose/Sodium Chloride (Dextrose 5%-1/2ns Iv Soln) 1,000 mls @ 10 mls/hr IV .Q24H [facility] Last Admin: 10/08/21 16:25 Dose: Not Given Documented by: Insulin Aspart (Insulin Aspart (Novolog) 100 Unit/Ml Vial) 0 unit SQ ACHS [facility]; Protocol Last Admin: 10/09/21 12:15 Dose: Not Given Documented by: Methocarbamol (Methocarbamol 750 Mg Tab) 750 mg PO TID [facility] Last Admin: 10/09/21 09:16 Dose: 750 mg Documented by: Metoclopramide HCl (Metoclopramide 5 Mg/Ml 2 Ml Vial) 10 mg IVP Q6HR PRN PRN Reason: Nausea and Vomiting Metoprolol Tartrate (Metoprolol Tartrate 25 Mg Tab) 25 mg PO TID [facility] Last Admin: 10/09/21 09:20 Dose: 25 mg Documented by: Miscellaneous Information (Magnesium Replacement Protocol 1 Each Misc) 1 each MISCELLANE DAILY PRN; Protocol PRN Reason: Per Protocol Miscellaneous Information (Magnesium Replacement Protocol 1 Each Misc) 1 each MISCELLANE DAILY PRN; Protocol PRN Reason: Per Protocol Naloxone HCl (Naloxone 0.4 Mg/Ml 1 Ml Vial) 0.2 mg IV Q2M PRN PRN Reason: Opioid Reversal Ondansetron HCl (Ondansetron 4 Mg/2 Ml Vial) 4 mg IVP Q8HR PRN PRN Reason: Nausea And Vomiting Last Admin: 10/02/21 09:06 Dose: 4 mg Documented by: Physical exam: GENERAL: The patient is alert and oriented x3, not in any acute distress. Well developed, well nourished. HEENT: Pupils are round and equally reacting to light. EOMI. No scleral icterus. No conjunctival pallor. Normocephalic, atraumatic. No pharyngeal erythema. No thyromegaly. CARDIOVASCULAR: S1 and S2 present. No murmurs, rubs, or gallops. PULMONARY: diminished breath sounds bilaterally with , no wheezing or crackles, some scattered rhonchi noted. ABDOMEN: Soft, mild generalized tenderness and mild generalized distention, normoactive bowel sounds. No palpable organomegaly. Colostomy bag in place, Neal catheter MUSCULOSKELETAL: No joint swelling or deformity. EXTREMITIES: No cyanosis, clubbing, or pedal edema. NEUROLOGICAL: Gross neurological examination did not reveal any focal deficits. diffuse weakness SKIN: No rashes. no petechiae. Assessment: -Sigmoid wall thickening suspicious for sigmoid mass with partial colon obs truction. status post exploratory laparotomy with Sigmoid colectomy with end colostomy, Partial cystectomy, Left salpingectomy, Appendectomy, Repair of left ureter secondary to left ureteral injury during surgical resection -A. fib with RVR, currently rate controlled -Hypertension -Hyperlipidemia -History of COPD, not in acute exacerbation -hypomagnesemia, improved -GI prophylaxis -DVT prophylaxis -Full code Plan: This is a pleasant 66 years old female. status post bowel surgery for her possible large sigmoid colon mass. Also with A. fib. Chest x-ray ordered and pending at this time and patient is currently on room air maintaining oxygen saturation above 94%. Incentive spirometer at the bedside encourage the patient to continue using at least 10 times every hour while awake Multiple medical consultations following including Pulmonary, Surgery, urology, and cardiology team following. Oncology following as well and Pathology sent to [facility] and awaiting patho report. Pathologic report pending and oncology arranging for outpatient follow-up PT/OT: Following patient is agreeable to ECF and has been accepted at [facility] and authorization obtained and will follow-up with other consultations about treatment plan with possible discharge in 24 hours to ECF Will repeat am labs and replace electrolytes per protocol. Urology following and patient will continue with indwelling neal catheter with outpatient follow up in 2 weeks. Hematuria noted and hemoglobin is stable. hemoGlobin is 10.1 today. Have resumed eliquis per surgery and will monitor closely for drop in hemoglobin or any worsening hematuria. Due to multiple complex medical issues, prognosis is guarded Possible discharge to [facility] in 24 hours The impression and plan of care has been dictated by Tamera Ling, Nurse Practitioner as directed. Dr. Loy MD I have performed a history and examination and MDM of this patient, discussed the same with the dictator, and agree with the dictator's assessment and plan as written ,documented as a scribe. Based on total visit time, I have performed more than 50% of the visit. Objective - Vital Signs Vital signs: Vital Signs Temp 97.5 F L 10/09/21 04:40 Pulse 93 10/09/21 09:26 Resp 18 10/09/21 04:40 BP 108/55 10/09/21 09:26 Pulse Ox 93 L 10/09/21 09:26 Intake & Output 10/08/21 10/09/21 10/09/21 18:59 06:59 18:59 Intake Total 200 Output Total 200 1400 Balance 0 -1400 Weight 72 kg Intake: Intake, IV Titration 200 Amount Magnesium Sulfate-D5w Pmx 200 1 gm In Dextrose/Water 1 100ml.bag @ 100 mls/hr IVPB Q1H [facility] Rx#: [id number] Output: Drainage 60 Lower Abdomen 60 Urine 1200 Stool 140 200 Other: Voiding Method Indwelling Catheter Indwelling Catheter - Labs CBC & Chem 7: 10/09/21 06:37 10/09/21 06:37 Labs: Abnormal Lab Results - Last 24 Hours (Table) 10/08/21 10/08/21 10/09/21 Range/Units 12:41 21:14 06:37 RBC 3.11 L (3.80-5.40) m/uL Hgb 10.1 L (11.4-16.0) gm/dL Hct 32.7 L (34.0-46.0) % MCV 105.2 H (80.0-100.0) fL Neutrophils # 8.1 H (1.3-7.7) k/uL Lymphocytes # 0.9 L (1.0-4.8) k/uL Chloride (98-107) mmol/L POC Glucose (mg/dL) 101 H 121 H (75-99) mg/dL Calcium (8.4-10.2) mg/dL 10/09/21 10/09/21 Range/Units 06:37 07:11 RBC (3.80-5.40) m/uL Hgb (11.4-16.0) gm/dL Hct (34.0-46.0) % MCV (80.0-100.0) fL Neutrophils # (1.3-7.7) k/uL Lymphocytes # (1.0-4.8) k/uL Chloride 111 H (98-107) mmol/L POC Glucose (mg/dL) 103 H (75-99) mg/dL Calcium 7.6 L (8.4-10.2) mg/dL
--- NOTE | 2021-10-09 14:16 | P.PN ---
Subjective Progress Note Date: 10/09/21 Principal diagnosis: sigmoid mass, status post resection Pt is doing well s/p surgery, the ostomy is functioning, tolerating oral intake, she is getting around the room with assistance. Objective - Vital Signs Vital signs: Vital Signs Temp 97.4 F L 10/09/21 11:17 Pulse 87 10/09/21 11:17 Resp 18 10/09/21 11:17 BP 104/60 10/09/21 11:17 Pulse Ox 92 L 10/09/21 11:17 Intake & Output 10/08/21 10/09/21 10/09/21 18:59 06:59 18:59 Intake Total 200 Output Total 200 1400 Balance 0 -1400 Weight 72 kg Intake: Intake, IV Titration 200 Amount Magnesium Sulfate-D5w Pmx 200 1 gm In Dextrose/Water 1 100ml.bag @ 100 mls/hr IVPB Q1H [facility] Rx#: [id number] Output: Drainage 60 Lower Abdomen 60 Urine 1200 Stool 140 200 Other: Voiding Method Indwelling Catheter Indwelling Catheter Indwelling Catheter - Constitutional General appearance: Present: average body habitus, cooperative, no acute distress - EENT Eyes: Present: anicteric sclerae, EOMI ENT: Present: hearing grossly normal - Respiratory Details: weak inspiratory effort 2/2 abd discomfort post [id number] pt on splinting when coughing and deep breathing. - Peripheral edema leg Peripheral Edema: bilateral: None - Gastrointestinal General gastrointestinal: Present: soft - Neurologic Neurologic: Present: CNII-XII intact - Musculoskeletal Musculoskeletal: Present: generalized weakness - Psychiatric Psychiatric: Present: A&O x's 3, appropriate affect, intact judgment & insight - Labs CBC & Chem 7: 10/09/21 06:37 10/09/21 06:37 Labs: Abnormal Lab Results - Last 24 Hours (Table) 10/08/21 10/09/21 10/09/21 Range/Units 21:14 06:37 06:37 RBC 3.11 L (3.80-5.40) m/uL Hgb 10.1 L (11.4-16.0) gm/dL Hct 32.7 L (34.0-46.0) % MCV 105.2 H (80.0-100.0) fL Neutrophils # 8.1 H (1.3-7.7) k/uL Lymphocytes # 0.9 L (1.0-4.8) k/uL Chloride 111 H (98-107) mmol/L POC Glucose (mg/dL) 121 H (75-99) mg/dL Calcium 7.6 L (8.4-10.2) mg/dL 10/09/21 10/09/21 Range/Units 07:11 11:21 RBC (3.80-5.40) m/uL Hgb (11.4-16.0) gm/dL Hct (34.0-46.0) % MCV (80.0-100.0) fL Neutrophils # (1.3-7.7) k/uL Lymphocytes # (1.0-4.8) k/uL Chloride (98-107) mmol/L POC Glucose (mg/dL) 103 H 110 H (75-99) mg/dL Calcium (8.4-10.2) mg/dL Assessment and Plan (1) Colonic mass Current Visit: Yes Status: Acute Priority: High Code(s): K63.89 - OTHER SPECIFIED DISEASES OF INTESTINE SNOMED Code(s): 571088881 Plan: Pathology has been referred to [facility] for further clarification of primary. 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 Discussed with Attending. Pt does need rehab so, pt is ok from Hem/Onc standpoint to go now and get stronger. No treatment would begin prior to adequate healing from surgery anyway (4-5 weeks). Also pending review of specimen at [facility] for appropriate treatment decisions. F/U appt in chart. Attests: I have performed H&P, seen and examined pt, developed impression and plan of care. Discussed with dictator. Agree with dictation, documented as a scribe.
[2021-10-09] MEDS: DEXTROSE 5%-0.45% NACL 1,000 ML IV SCH (14:56)
[2021-10-09 17:06] LABS: Glucose,Whole Blood 93 mg/dL (75-99)
--- NOTE | 2021-10-09 18:58 | XR ---
EXAMINATION TYPE: XR chest 1V portable DATE OF EXAM: 10/09/2021 Comparison: 10/07/2021 Clinical History: 66-year-old female shortness of breath Findings: Heart and lungs are normal in size. Continued moderate right but increased small left pleural effusio ns with basilar opacities. No significant change from prior. Impression: Unchanged moderate right but increased small left pleural effusions with adjacent atelectasis and/or consolidation.
[2021-10-09] MEDS: ATORVASTATIN 40 MG TAB PO SCH (20:48)
[2021-10-09 21:08] LABS: Glucose,Whole Blood 95 mg/dL (75-99)
[2021-10-10 07:04] LABS: Glucose,Whole Blood 90 mg/dL (75-99)
[2021-10-10] MEDS: INSULIN ASPART (NovoLOG) 100 UNIT/ML VIAL SQ SCH ×4 (07:33→21:25)
[2021-10-10] MEDS: DIGOXIN 125 MCG TAB PO SCH (07:38)
[2021-10-10] MEDS: FAMOTIDINE 20 MG/2 ML VIAL IV SCH (07:38)
[2021-10-10] MEDS: METOPROLOL TARTRATE 25 MG TAB PO SCH ×3 (07:38→20:15)
[2021-10-10] MEDS: methocarbamoL 750 MG TAB PO SCH ×3 (07:38→20:15)
[2021-10-10] MEDS: APIXABAN 5 MG TAB PO SCH ×2 (07:38→20:15)
[2021-10-10] MEDS: HYDROcodone/APAP 5-325MG 1 EACH TAB PO PRN ×3 (09:11→20:18)
--- NOTE | 2021-10-10 11:16 | P.PN ---
Subjective Progress Note Date: 10/10/21 The patient is in her fifth postoperative day status post left ureteroureterostomy. She continues to improve. She was ambulating when I arrived to the floor. Her pain seems to be under control. Her vital signs are stable. Her LUZMA drainage is small. Her abdomen is soft. There is some old blood in the urine is expected with a stent and the bladder repair. We will continue monitoring. When she goes home she'll probably go home with a catheter for a total of 2 weeks as well as her stent. We'll continue to follow. Objective - Vital Signs Vital signs: Vital Signs Temp 98.2 F 10/10/21 05:00 Pulse 94 10/10/21 08:40 Resp 20 10/10/21 08:40 BP 138/69 10/10/21 08:29 Pulse Ox 96 10/10/21 05:00 Intake & Output 10/09/21 10/10/21 10/10/21 18:59 06:59 18:59 Intake Total 200 Output Total 1602 610 300 Balance -1602 -410 -300 Intake: Oral 200 Output: Drainage 10 Lower Abdomen 10 Urine 1400 300 Stool 202 300 300 Other: Voiding Method Indwelling Catheter Indwelling Catheter Indwelling Catheter - Labs CBC & Chem 7: 10/09/21 06:37 10/09/21 06:37 Labs: Abnormal Lab Results - Last 24 Hours (Table) 10/09/21 Range/Units 11:21 POC Glucose (mg/dL) 110 H (75-99) mg/dL
--- NOTE | 2021-10-10 11:30 | P.PN ---
Subjective Progress Note Date: 10/10/21 This is a 66-year-old female patient with past a history of smoking, COPD, hypertension, hyperlipidemia, chronic A. fib, coronary artery disease, who presented to the emergency department on 09/28/2021 with chief complaint of abdominal pain which had been ongoing for 10 days prior to presentation. Patien familia was also complaining of intermittent nausea, but no fever, no chills, no vomiting or diarrhea. Denied any blood in the stools. CT of abdomen and pelvis with contrast in the emergency department showed partial large bowel obstruction secondary to extensive bowel wall thickening of the sigmoid colon that was suspicious for primary malignancy. There was a string dilation of the colon and small bowel, there was mild cardiomegaly and hepatic steatosis. Patient had a prior colonoscopy 3 years ago. Admission labs showed normal white count of 4.6, hemoglobin was 16.2, INR was 1.2, electrolytes and renal profile were unremarkable, troponin was negative at less than 0.012, proBNP was 4290, lipase was within normal limits at 75, LFTs were within normal limits, urinalysis showed 1+ ketones, rare bacteria, negative glucose, no clear evidence of infection. Patient recently had a heart catheterization in August 2021 which showed total occlusion of the RCA with intermediate disease involving the left coronary system, and preserved left ventricular systolic function. Patient was started on IV fluids, and antibiotics and surgical consultation was obtained. She was taken to surgery on 10/01/2021, by Dr. Carranza and Dr. Luevano and underwent exploratory laparotomy, sigmoid colectomy with end colostomy, partial cystectomy, left salpingectomy, appendectomy, and repair of left ureter. In the recovery room patient was extubated however she needed to be reintubated in the recovery room in view of difficulty breathing, hypoxia, and insufficient respiratory effort. She was admitted to the intensive care unit following a recent intubation. This morning she remains intubated and on mechanical ventilator, with assist control mode of ventilation with a rate of 18, tidal volume is 350, FiO2 of 40%, and PEEP of 5. Today's blood gas shows a pO2 of 76, pCO2 47, and pH of 7.32 this was done and the above-mentioned ventilator settings, today's chest x-ray showing mild infiltrate and atelectasis at the right lung base which is improved compared old exam, and there is clearing of the pulmonary congestion. Patient is currently on D5 half-normal saline with 20 of potassium at a rate of 125, and improving and at 25 mics per kilo per minute, she did require 2-1/2 L bolus last night for low urine output. She is not requiring any vasopressor support right now. Today's labs have been reviewed White blood cell count is 13, hemoglobin is 12.3, sodium is 137, potassium is 4.1, chloride is 109, BUN is 14, creatinine is 1.07. Urinalysis was repeated showing large amount of blood, moderate leuks, and 15 of white blood cells, patient is on Zosyn for empiric antibiotic coverage. Her surgical biopsy results are still pending. Abdominal incision is covered with a surgical dressing, clean dry and intact, well approximated, patient has left lower quadrant colostomy with no stool or gas. On 10/03/2021 patient seen in follow-up in the intensive care unit, she was successfully weaned and extubated yesterday on 10/02/2021 on postoperative day #1. Today she is awake and alert, oriented 3, she is on 2 L oxygen and pulse ox is 99%, she is breathing comfortably, follow-up chest x-ray is pending but patient denies any shortness of breath, no cough, she been afebrile through the night, blood pressures have been on the lower side or marginal, she is in atrial fibrillation which is chronic for her, and at times she is slightly tachycardic with a rate in the low 100s BPM. IV fluids are D5 half-normal saline with 20 of potassium at a rate of 125 ML per hour, no nasal pressors. She remains on Zosyn for empiric antibiotic coverage. Abdomen has postoperative tenderness, left lower quadrant colostomy is producing brown stool. Lung sounds are clear, diminished, incentive spirometer effort is 1000 mL today. Urine output through the night has been marginal, in the order of 25-30 ML per hour, blood pressures have been marginal, patient's Lasix was placed on hold, recent echocardiogram showed LV function with EF of 45-50%. Today's labs have been reviewed, white blood cell count is 10.1, hemoglobin is 11.1, platelet count is 193, sodium is 137, potassium is 4.5, chloride is 113, CO2 is 18, BUN is 14, creatinine is 1.14. Patient has been tolerating ice chips, and popsicles, but she has had very poor oral intake and she states she does not feel like taking anything by mouth. No nausea or vomiting. Oral membranes are very dry, no lower extremity edema, lung sounds are clear. Abdominal incision is clean dry and intact, covered with a dressing, LUZMA drain is in place draining serosanguineous output and there has been 595 mL of output from the LUZMA drain over the last 24 hours. On 10/04/2021 patient seen in follow-up in the intensive care unit, she is awake and alert, in no acute distress. She is on 2 L of oxygen satting 95-100%, denies any respiratory difficulty, she needs encouragement and reminded using incentive spirometry, she is achieving 750 on it today. She is tolerating ice chips, she is a bit nauseous, but has had no vomiting. She is on D5 half-normal saline with 20 of potassium at a rate of 130 ML per hour, her colostomy is producing soft brown stool. She remains nothing by mouth except for ice chips and popsicles. LUZMA drain is producing large amount of serous output, patient has produced 720 ML of serous output from the LUZMA drain, there was a question regarding possibility of urine in the LUZMA drain, and for that reason LUZMA drainage was sent for urine creatinine. Abdominal x-ray was obtained today showing left ureteral stent with proximal and partially uncoiled, and abnormally positioned, displaced to the middle skin sahil at the pelvis and surgical drain some borderline distended small bowel loops, and development of some patchy basilar atelectasis versus infiltrate. Today's labs have been reviewed, white blood cell count is 8.9, hemoglobin is 10.7, sodium is 138, potassium is 5.2, chloride is 114, CO2 is 21, BUN is 10 and creatinine is 1.04. Urine output is in the order of 30-40 mL per hour, and this morning it is improved up to 50-100 ML per hour. Patient is developing some mild trace pretibial edema, we'll cut back IV fluids and switch it to D5 half-normal saline at a rate of 50 ML per hour The patient is seen today 10/05/2021 in follow-up on the regular medical floor. She is currently sitting up in bed. Awake and alert in no acute distress. She denies any worsening shortness of breath, cough or congestion. She is maintaining good O2 saturations in the 90s on 2 L/m per nasal cannula. She has normal saline running at 50 MLS per hour. She remains nothing by mouth. She is working with the incentive spirometer. Follow up computed tomography scan of the abdomen revealed malpositioned double-J stent with the upper end likely within the left renal vein/IVC. Suspect injury along the left ureterovesical junction with multiple pelvic air bubbles which could be related to acute postoperative changes. Follow-up urogram revealed extraluminal excreted IV contrast most pronounced along the left ureter with some also. Near the distal right ureter. Favored to represent a left ureteral injury with layering in the pelvis. Underlying right ureteral injury not excluded. Left ureteral stent proximal pigtail within the IVC is seen in prior. Urology is aware and planning possible ureterureterostomy revision. Urine culture had revealed no growth. White count 8.2. Hemoglobin 9.8. Platelets 199. Sodium 141. Potassium 4.8. BUN 8.5. Creatinine 1.1. She is continued on Flagyl and Zosyn. Heparin for DVT prophylaxis. D5W with half-normal saline at 50 MLS per hour. The patient is seen today 10/06/2021 in follow-up on the regular medical floor. She is currently resting fairly comfortable in bed. Awake and alert in no acute distress. She is maintaining O2 saturations in the mid 90s on 2 L/m per nasal cannula. Afebrile. She did undergo a exploratory laparotomy with revision of the left ureteroureterostomy and stent exchange on the left. LUZMA drain in place. Mcfarland catheter remains in place. Currently in a positive balance of 980 ML's. Chest x-ray reveals increasing moderate right and small left pleural effusions with adjacent atelectasis with some background mild CHF/pulmonary vascular congestion. She is currently on Zosyn and Flagyl. White count 17.4. Hemoglobin 10.6. Glucose 106. Iron 13. Transferrin 60.7. Ferritin 292. She is currently on IV fluids of D5.45 at 50 MLS per hour. The patient is seen today 10/09/2021 in follow-up on the regular medical floor. She is currently sitting up in bed. Awake and alert in no acute distress. She is feeling quite a bit better. She is maintaining O2 saturations in the 90s on room air. She's been afebrile. She is tolerating a full liquid diet. Her urine output is adequate. The plan is for Mcfarland catheter remain in place for 2 weeks and the stent to the left ureteral for 6 weeks per urology. White count 9.8. H emoglobin 10.1. Sodium 139. Potassium 4.1. Chloride 111. Bicarb 23. BUN 12. Creatinine 0.95. Glucose 103. She is continued on DuoNeb inhalations. Continuing to work with the incentive spirometer. Remains in atrial fibrillation. Anticoagulated with Eliquis. The patient is seen today 10/10/2021 in follow-up on the regular medical floor. She is awake and alert in no acute distress. She is sitting up in bed. Doing a bit better today compared to yesterday. She has a loose nonproductive cough. She is maintaining good O2 saturations in the mid 90s on 2 L/m per nasal cannula. Chest x-ray continues to show bilateral effusions right greater than left with atelectasis. She is needing increased encouragement regarding the incentive spirometer. Only pulling approximately 500 ML's. She remains afebrile. Hemodynamically stable. She is noted to have hematuria. Mcfarland catheter remains in place. Urology is following. She is on Eliquis. Objective - Vital Signs Vital signs: Vital Signs Temp 98.2 F 10/10/21 05:00 Pulse 94 10/10/21 08:40 Resp 20 10/10/21 08:40 BP 138/69 10/10/21 08:29 Pulse Ox 96 10/10/21 05:00 Intake & Output 10/09/21 10/10/21 10/10/21 18:59 06:59 18:59 Intake Total 200 Output Total 1602 610 300 Balance -1602 -410 -300 Intake: Oral 200 Output: Drainage 10 Lower Abdomen 10 Urine 1400 300 Stool 202 300 300 Other: Voiding Method Indwelling Catheter Indwelling Catheter Indwelling Catheter - Exam GENERAL EXAM: Awake, pleasant 66-year-old female, on 2 L nasal cannula and the pulse ox of 96%, comfortable in no apparent distress. HEAD: Normocephalic/atraumatic. EYES: Normal reaction of pupils, equal size. Conjunctiva pink, sclera white. NOSE: Clear with pink turbinates. THROAT: No erythema or exudates. NECK: No masses, no JVD, no thyroid enlargement, no adenopathy. CHEST: No chest wall deformity. Symmetrical expansion. LUNGS: Equal air entry with crackles in the right lung base. CVS: Irregular rate and rhythm, normal S1 and S2, no gallops, no murmurs, no rubs ABDOMEN: Soft, nontender. Left lower quadrant colostomy in place producing soft brown stool, Mid abdominal incision below the umbilicus is clean dry and intact, sahil are intact, covered with surgical dressing, LUZMA drain with serosanguineous drainage, compressed and draining. No hepatosplenomegaly, normal bowel sounds, no guarding or rigidity. EXTREMITIES: No clubbing, no edema, no cyanosis, 2+ pulses and upper and lower extremities. MUSCULOSKELETAL: Muscle strength and tone normal. SPINE: No scoliosis or deformity SKIN: No rashes CENTRAL NERVOUS SYSTEM: Awake and alert, oriented 3. No focal deficits, tone is normal in all 4 extremities. - Labs CBC & Chem 7: 10/09/21 06:37 10/09/21 06:37 Labs: Abnormal Lab Results - Last 24 Hours (Table) 10/09/21 Range/Units 11:21 POC Glucose (mg/dL) 110 H (75-99) mg/dL Assessment and Plan Assessment: 1 Acute hypoxic and hypercapnic respiratory failure following surgical procedure possibly related to procedural sedation and history of COPD, and patient had to be reintubated in the recovery room following exploratory lapa rotomy, sigmoid colectomy, partial cystectomy, left salpingectomy, appendectomy and repair of the left ureter on 10/01/2021. Returned to the OR on 10/05/2021 for a revision of the left ureteral ureterostomy and stent exchange. Chest x-ray showing some increasing pleural effusion and pulmonary vascular congestion right greater than left. Completed Zosyn and Flagyl. 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 Suspect injury along the left ureterovesicular junction with multiple pelvic air bubbles possibly postop changes. Urogram revealed extraluminal excreted IV contrast most pronounced along the left ureter with some also appearing near the distal right ureter. Favored to represent a left ureteral injury with layering in the pelvis. Underlying right ureteral injury not excluded. Returned to the OR on 10/05/2021 for a revision of the left ureteral ureterostomy and stent exchange. 4 Hypotension, related to hypovolemia, improved with IV fluid boluses 5 History of COPD 6 Former smoker 7 Coronary artery disease 8 Chronic A. fib on Eliquis which is resumed 9 Hypertension 10 Hyperlipidemia Plan: The patient was seen and evaluated Chest x-ray and medications reviewed Urine output adequate Encouraged regarding the increased use of the incentive spirometer Increase her activity as tolerated Completed Mily Plan is for subacute rehabilitation I have personally seen and examined the patient, performed the documentation and the assessment and plan as written. Number of minutes spent on the visit: 10.
[2021-10-10 11:52] LABS: Glucose,Whole Blood 141 mg/dL (75-99)
--- NOTE | 2021-10-10 14:46 | P.PN ---
Subjective Progress Note Date: 10/10/21 CHIEF COMPLAINT: Sigmoid colon tumor HISTORY OF PRESENT ILLNESS: Postoperative day #9 status post exploratory laparotomy, sigmoid colectomy with end colostomy, partial cystectomy, left salpingectomy, appendectomy and repair of left ureter. Patient is sitting up in bedside chair. She denies any significant abdominal pain. Patient is having a bloody purulent drainage from the distal part of her incision. She is tolerating a diet. Her ostomy is functioning. Mcfarland catheter in place with jesus blood. She is followed by urology and the hematuria is expected finding due to urology procedure. She is on Eliquis. Afebrile. No new labs. PHYSICAL EXAM: VITAL SIGNS: Reviewed. GENERAL: Well-developed in no acute distress. HEENT: No sclera icterus. Extraocular movements grossly intact. Moist buccal mucosa. Head is atraumatic, normocephalic. ABDOMEN: Soft. Ostomy with stool present. Distal aspect of the incisions shows a bloody purulent drainage. LUZMA drain with 10 mL of serosanguineous output NEUROLOGIC: Alert and oriented. Cranial nerves II through XII grossly intact. ASSESSMENT: 1. Large colon tumor of sigmoid colon invading bladder and left salpinx status post exploratory laparotomy, sigmoid colectomy with end colostomy, partial cystectomy, left salpingectomy, appendectomy and repair of left ureter PLAN: -3 sahil removed from the incision with significant amount of bloody, purulent drainage expressed by Dr. Saucedo. Culture was obtained. Open area of incision was packed with gauze. -We'll resume Zosyn for antibiotic coverage -check CBC in am -Continue regular Diet -Patient is not ready for discharge. -Continue Mcfarland catheter as instructed by urology -Encourage patient to ambulate and increase activity -Encourage patient to use incentive spirometer -DVT prophylaxis on Eliquis and GI prophylaxis Pepcid Physician Obstetrical Anesthesiologist note has been reviewed by physician. Signing provider agrees with the documented findings, assessment, and plan of care. I have personally seen and examined the patient, reviewed the MECHANICAL SYSTEMS DESIGN ENGINEER /PAs history, exam and MDM and agree with the assessment and plan as written. Based on total visit time, I have performed more than 50% of the visit. As above: Patient with some cloudy serous anus drainage from the lower aspect of her incision. 3 sahil removed. Large volume of semi-purulent fluid was evacuated. Cultures were taken. Wound was packed with plain cotton gauze. Continue local wound care. Resume IV antibiotics. Continue diet as tolerated. Objective - Vital Signs Vital signs: Vital Signs Temp 97.7 F 10/10/21 11:42 Pulse 78 10/10/21 11:42 Resp 16 10/10/21 11:42 BP 130/71 10/10/21 11:42 Pulse Ox 97 10/10/21 11:42 Intake & Output 10/09/21 10/10/21 10/10/21 18:59 06:59 18:59 Intake Total 200 Output Total 1602 610 330 Balance -1602 -410 -330 Intake: Oral 200 Output: Drainage 10 30 Lower Abdomen 10 30 Urine 1400 300 Stool 202 300 300 Other: Voiding Method Indwelling Catheter Indwelling Catheter Indwelling Catheter - Labs CBC & Chem 7: 10/09/21 06:37 10/09/21 06:37 Labs: Abnormal Lab Results - Last 24 Hours (Table) 10/10/21 Range/Units 11:50 POC Glucose (mg/dL) 141 H (75-99) mg/dL
--- NOTE | 2021-10-10 14:47 | P.PN ---
Subjective Progress Note Date: 10/10/21 66-year-old female presents to the emergency department with a chief complaint of abdominal pain. Patient states her symptoms started 10 days ago. Describes it as generalized abdominal pain with no radiation. No back pain. She states she had intermittent nausea for the first couple days that has since resolved. No fever, chills, vomiting, or diarrhea. Normal bowel movements with last bowel movement yesterday, nonbloody. Patient has been tolerating oral intake okay however states her appetite has decreased. No burning with urination, increased urinary frequency/urgency, or blood in the urine. No chest pain or shortness of breath. Patient does have history of atrial fibrillation on Libby ling. No upper respiratory symptoms or recent sick contacts. No previous abdominal surgeries. Patient does admit to tobacco use with [id number] history. She denies family history of aneurysm. CT is significant for a suspected partial large bowel obstruction secondary to eccentric bowel wall thickening of the sigmoid colon which is suspicious for primary malignancy. EKG revealed atrial fibrillation with rapid ventricular response; patient was started on IV Cardizem Patient continues to have abdominal distention and pain; no bowel movements; general surgery on board and planning to repeat abdominal x-ray with tentative plan for partial colectomy tomorrow Patient remains in atrial fibrillation with controlled ventricular response at this time; no anticoagulation therapy for anticipated surgery in next 24-48 hours; echocardiogram reveals normal LV function and no significant valvular abnormalities; cardiology on board and recommending to continue with Lasix 20 mg daily for mild fluid overload; Resume the care of the patient 10/01/2021. Patient awake and alert. She still with abdominal complaint and pain and discomfort with no bowel movement. Surgery team are planning for exploratory laparotomy with possible diverting colostomy and possible sigmoid resection. Pie [employer] team on the case also for preop evaluation and also for her A. fib. Currently rate controlled on metoprolol and oral Lasix. She is on D5 half-normal saline at 50 mL per hour, Flagyl and Zosyn. Labs look stable. 10/02/2021 Patient with sigmoid mass status post exploratory laparotomy with Sigmoid colectomy with end colostomy, Partial cystectomy, Left salpingectomy, Appendectomy, Repair of left ureterPeriod secondary to left ureteral injury during surgical resection. Patient vomited by urologist and had left ureteral repair. Currently has a Neal catheter was recommendation to stay for 2 weeks. Post operatively patient got intubated. Patient currently remains on mechanical ventilation She remains on Zosyn, Eliquis on hold. Patient is started on Pepcid and subcu heparin.. She received also normal saline boluses 10/03/2021 Today patient in the ICU status post extubation. She is postoperative day #2. She still nothing by mouth, awake but very weak. Her colostomy back in a Place, no bowel movement yet. Also Neal catheter with PATRICE drain with more than 200 of serosanguineous fluid. Her pathology is pending, Eliquis still on hold, patient kept on Flagyl and Zos yn and IV fluids. Patient received 1 L of normal saline for hypertension, also her metoprolol dose lowered to 25 mg. 10/04/2021 Patient clinically is improving gradually, her pain at the surgery site is country of, she is fully awake and oriented, she does not look in distress. Her colostomy tube in the left lower quadrant abdomen with some small amounts light brown stool. Neal catheter in place with yellow urine. A follow-up for stent urologist recommended CT of the abdomen without contrast was showing mild positioning of the double J stent, CT urogram is ordered and is pending, neurology following closely. Other that clinically she is doing generally well, improving slowly. She kept nothing by mouth with surgery team following him closely as well. Patient's can go to the general medical floor today. Continue with Flagyl and Zosyn, D5 half-normal saline at 50 mL/h and metoprolol increased to 25 g 3 times a day today. She is also a small dose of oral Lasix while Eliquis still on hold 10/05/2021 Patient remains nothing by mouth, colostomy with no bowel movement or gas. Neal catheter in place. She remains on D5 half-normal saline at 50 mL per hour She looks tired but no distress. Hemodynamically stable. Labs reviewed with WBC 8.2, creatinine 1.1. CT urogram: Extraluminal secreted IV contrast most pronounced along the left ureter with some also appearing near the distal right ureter on delayed imaging. This is favored to represent a left ureteral injury with layering in the pelvis. Right ureteral injury is not entirely exclude it.A left ureteral stent is seen. urologist on the case 10/06/2021 patient remains clinically same with no significant change, she is tired looking, she still nothing by mouth. Colostomy back still not showing bowel movements today however it has bowel movement yesterday Neal catheter in place. Patient followed closely by urology service Pathology did not show final diagnosis and the specimen was sent to [facility] by pathologist for consultation. Oncology team on the case also. Continue with Zosyn, Flagyl and D5 half-normal saline at 50 mL per hour. 10/07/2021 Patient generally doing well and she is improving gradually and slowly. His morning she was still nothing by mouth but surgery team are planning to start her on diet and liquid diet today. Colostomy back is working and last time and it was last night. Neal catheter in place with some dark colored urine which is expected from her recent surgery and some bleeding. Repeat chest x-ray showing pleural effusion with atelectasis. Pending pathology which is sent then [facility] for further consultation. She remains on Flagyl and Zosyn and D5 half-normal saline at 50. Eliquis on hold 10/08/2021 Patient is seen and evaluated this morning with multiple medical consultations following as patient is status post sigmoid mass status post exploratory laparotomy with Sigmoid colectomy with end colostomy, Partial cystectomy, Left salpingectomy, Appendectomy, Repair of left ureter. Patient being followed by urology as well and currently has a Neal catheter was recommendation to stay for 2 weeks. Patient with some hematuria noted in the neal and hemoglobin is currently stable and will resume eliquis with cardiology following and ok per surgery recommendations and will monitor labs closely. Oncology following as well and awaiting second opinion of patho that was sent to [facility]. Patient with continued weakness and working with PT/OT therapy. Magnesium mildly low at 1.7 and will replace per protocol. Patient currently on 2L via NC with pulmonary following as well. Recommend a dose of IV lasix. Encouraged incentive spirometer use. Patient denies chest pain or worsening shortness of breath. Patient is afebrile. Patient started on diet and tolerating and advancing slowly per surgery recommendations. 10/09/2021 Patient is seen in follow-up this morning with no acute overnight issues noted. Multiple medical consultations including oncology, urology, pulmonary following closely and chest x-ray ordered and pending. Patient is currently on room air and tolerating oxygen saturations above 93% and denies any shortness of breath. Patient denies chest pain and is tolerating diet. Patient is also been seen and evaluated by cardiology recommending resuming anticoagulant which has been done. Patient with noted hematuria in the Neal and has been evaluated by urology and this is noted to be in expected outcome of recent surgery. Patient also with left ureteral stent and will require outpatient follow-up in 6 weeks. Patient is to continue with indwelling Neal catheter and will follow-up with repeat labs. Hemoglobin is stable at 10.1 today and BMP within normal limits. Magnesium is 2.2. Patient encouraged increased activity as tolerated although continues with weakness physical therapy has evaluated the patient recommending subacute rehab and social work following as patient has been accepted to [facility] and requiring insurance authorization. Will discuss with other consultations about treatment plan moving forward with possible discharge to [facility] in 24 hours. 10/10/2021 Patient is seen today with multiple medical consultations following. General surgery also following as patient continues with LUZMA drain although output is minimal. Patient reports to having some leaking noted at the bottom of the surg ical site and will be redressing site and evaluating. Patient with noted hematuria and urology following and hemoglobin remained stable and will continue with indwelling Neal catheter. Patient had been off antibiotic therapy and remaining afebrile although with some noted drainage is being started on IV Zosyn and will continue to monitor closely. Patient tolerating diet and stool and gas noted in the ostomy and abdomen less tender today. Chest x-ray yesterday revealed continued moderate right but increased small left pleural effusion with basilar opacification is an adjacent atelectasis with no significant change from previous. Patient reports to feeling some mild shortness of breath today and was placed back on 2 L. Oxygen saturation is 97% on the 2 L. Wean FiO2 as tolerated and encouraged incentive spirometer use at the bedside. Patient extremely weak and working with physical therapy daily and will be going to rehab at [facility] once stabilized and discharged. Review of systems: Constitutional: No reports of fatigue, fever, or chills Cardiovascular: No reports of chest pain or palpitations Respiratory: No reports of worsening shortness of breath or cough GI: No reports of nausea, vomiting, or diarrhea : No reports of dysuria or retention Neurovascular: reports of generalized weakness All medications have been reviewed Active Medications Hydrocodone Bitart/Acetaminophen (Hydrocodone/Apap 5-325mg 1 Each Tab) 1 each PO Q4HR PRN PRN Reason: Pain Last Admin: 10/10/21 09:11 Dose: 1 each Documented by: Albuterol/Ipratropium (Ipratropium-Albuterol 3 Ml Neb) 3 ml INHALATION RT-QID PRN PRN Reason: Shortness Of Breath Or Wheezing Last Admin: 09/29/21 10:51 Dose: 3 ml Documented by: Apixaban (Apixaban 5 Mg Tab) 5 mg PO BID [facility]; Protocol Last Admin: 10/10/21 07:38 Dose: 5 mg Documented by: Atorvastatin Calcium (Atorvastatin 40 Mg Tab) 40 mg PO HS [facility] Last Admin: 10/09/21 20:48 Dose: 40 mg Documented by: Benzocaine/Menthol (Benzocaine/Menthol Lozeng 1 Each Lozenge) 1 each MUCOUS MEM Q1HR PRN PRN Reason: Sore Throat Digoxin (Digoxin 125 Mcg Tab) 125 mcg PO DAILY [facility] Last Admin: 10/10/21 07:38 Dose: 125 mcg Documented by: Famotidine (Famotidine 20 Mg/2 Ml Vial) 20 mg IV DAILY [facility] Last Admin: 10/10/21 07:38 Dose: 20 mg Documented by: Hydromorphone HCl (Hydromorphone 1 Mg/Ml 1 Ml Syringe) 1 mg IVP Q6HR PRN PRN Reason: Pain Last Admin: 10/06/21 09:10 Dose: 1 mg Documented by: Hydromorphone HCl (Hydromorphone 1 Mg/Ml 1 Ml Syringe) 1 mg IVP Q3HR PRN PRN Reason: Severe Pain Last Admin: 10/06/21 19:14 Dose: 1 mg Documented by: Hydromorphone HCl (Hydromorphone 0.5 Mg/0.5 Ml Syringe) 0.25 mg IVP Q1HR PRN PRN Reason: Pain Last Admin: 10/06/21 05:01 Dose: 0.25 mg Documented by: Dextrose/Sodium Chloride (Dextrose 5%-1/2ns Iv Soln) 1,000 mls @ 10 mls/hr IV .Q24H [facility] Last Admin: 10/09/21 14:56 Dose: Not Given Documented by: Piperacillin Sod/Tazobactam (Sod 3.375 gm/ Sodium Chloride) 100 mls @ 25 mls/hr IVPB Q8HR [facility]; Protocol Insulin Aspart (Insulin Aspart (Novolog) 100 Unit/Ml Vial) 0 unit SQ ACHS [facility]; Protocol Last Admin: 10/10/21 11:53 Dose: 1 unit Documented by: Methocarbamol (Methocarbamol 750 Mg Tab) 750 mg PO TID [facility] Last Admin: 10/10/21 07:38 Dose: 750 mg Documented by: Metoclopramide HCl (Metoclopramide 5 Mg/Ml 2 Ml Vial) 10 mg IVP Q6HR PRN PRN Reason: Nausea and Vomiting Metoprolol Tartrate (Metoprolol Tartrate 25 Mg Tab) 25 mg PO TID [facility] Last Admin: 10/10/21 07:38 Dose: 25 mg Documented by: Miscellaneous Information (Magnesium Replacement Protocol 1 Each Misc) 1 each MISCELLANE DAILY PRN; Protocol PRN Reason: Per Protocol Miscellaneous Information (Magnesium Replacement Protocol 1 Each Misc) 1 each MISCELLANE DAILY PRN; Protocol PRN Reason: Per Protocol Naloxone HCl (Naloxone 0.4 Mg/Ml 1 Ml Vial) 0.2 mg IV Q2M PRN PRN Reason: Opioid Reversal Ondansetron HCl (Ondansetron 4 Mg/2 Ml Vial) 4 mg IVP Q8HR PRN PRN Reason: Nausea And Vomiting Last Admin: 10/02/21 09:06 Dose: 4 mg Documented by: Physical exam: GENERAL: The patient is alert and oriented x3, not in any acute distress. Well developed, well nourished. HEENT: Pupils are round and equally reacting to light. EOMI. No scleral icterus. No conjunctival pallor. Normocephalic, atraumatic. No pharyngeal erythema. No thyromegaly. CARDIOVASCULAR: S1 and S2 present. No murmurs, rubs, or gallops. PULMONARY: diminished breath sounds bilaterally with , no wheezing or crackles, some scattered rhonchi noted. ABDOMEN: Soft, mild generalized tenderness and mild generalized distention, some mild drainage noted from surgical site, normoactive bowel sounds. No palpable organomegaly. Colostomy bag in place, Neal catheter MUSCULOSKELETAL: No joint swelling or deformity. EXTREMITIES: No cyanosis, clubbing, or pedal edema. NEUROLOGICAL: Gross neurological examination did not reveal any focal deficits. diffuse weakness SKIN: No rashes. no petechiae. Assessment: -Sigmoid wall thickening suspicious for sigmoid mass with partial colon obstruction. status post exploratory laparotomy with Sigmoid colectomy with end colostomy, Partial cystectomy, Left salpingectomy, Appendectomy, Repair of left ureter secondary to left ureteral injury during surgical resection -A. fib with RVR, currently rate controlled -Hypertension -Hyperlipidemia -History of COPD, not in acute exacerbation -hypomagnesemia, improved -GI prophylaxis -DVT prophylaxis -Full code Plan: This is a pleasant 66 years old female. status post bowel surgery for her possible large sigmoid colon mass. Also with A. fib. Encouraged Incentive spirometer at the bedside encourage the patient to continue using at least 10 times every hour while awake Multiple medical consultations following including Pulmonary, Surgery, urology, and cardiology team following. Oncology following as well and Pathology sent to [facility] and awaiting patho report. Pathologic report pending and oncology arranging for outpatient follow-up PT/OT: Following patient is agreeable to ECF and has been accepted at [facility] and authorization obtained and will follow-up with other consultations about treatment plan with possible discharge in 24 hours to ECF Will repeat am labs and replace electrolytes per protocol. Urology following and patient will continue with indwelling neal catheter with outpatient follow up in 2 weeks. Hematuria noted and hemoglobin is stable. Have resumed eliquis per surgery and will monitor closely for drop in hemoglobin or any worsening hematuria. Surgical abdominal site with some mild drainage noted and patient being restarted on IV Zosyn and cultures have been obtained and pending at this time. Due to multiple complex medical issues, prognosis is guarded The impression and plan of care has been dictated by Tamera Ling, Nurse Practitioner as directed. Dr. Loy MD I have performed a history and examination and MDM of this patient, discussed the same with the dictator, and agree with the dictator's assessment and plan as written ,documented as a scribe. Based on total visit time, I have performed more than 50% of the visit. Objective - Vital Signs Vital signs: Vital Signs Temp 97.7 F 10/10/21 11:42 Pulse 78 10/10/21 11:42 Resp 16 10/10/21 11:42 BP 130/71 10/10/21 11:42 Pulse Ox 97 10/10/21 11:42 Intake & Output 10/09/21 10/10/21 10/10/21 18:59 06:59 18:59 Intake Total 200 Output Total 5842 662 874 Balance -7254 -944 -811 Intake: Oral 200 Output: Drainage 10 30 Lower Abdomen 10 30 Urine 1400 300 Stool 202 300 300 Other: Voiding Method Indwelling Catheter Indwelling Catheter Indwelling Catheter - Labs CBC & Chem 7: 10/09/21 06:37 10/09/21 06:37 Labs: Abnormal Lab Results - Last 24 Hours (Table) 10/10/21 Range/Units 11:50 POC Glucose (mg/dL) 141 H (75-99) mg/dL
[2021-10-10] MEDS: DEXTROSE 5%-0.45% NACL 1,000 ML IV SCH (14:56)
[2021-10-10] MEDS: PIPERACILLIN-TAZOBACTAM 3.375 GM in SODIUM CHLORIDE 0.9% 100 ML IVPB SCH (16:16)
[2021-10-10 17:03] LABS: Glucose,Whole Blood 100 mg/dL (75-99)
[2021-10-10] MEDS: ATORVASTATIN 40 MG TAB PO SCH (20:15)
[2021-10-10 20:51] LABS: Glucose,Whole Blood 115 mg/dL (75-99)
[2021-10-11] MEDS: PIPERACILLIN-TAZOBACTAM 3.375 GM in SODIUM CHLORIDE 0.9% 100 ML IVPB SCH ×3 (00:20→15:51)
[2021-10-11 07:28] LABS: Glucose,Whole Blood 88 mg/dL (75-99)
[2021-10-11] MEDS: INSULIN ASPART (NovoLOG) 100 UNIT/ML VIAL SQ SCH ×4 (07:51→21:07)
[2021-10-11] MEDS: FAMOTIDINE 20 MG/2 ML VIAL IV SCH (08:22)
[2021-10-11] MEDS: METOPROLOL TARTRATE 25 MG TAB PO SCH ×3 (08:22→21:07)
[2021-10-11] MEDS: DIGOXIN 125 MCG TAB PO SCH (08:22)
[2021-10-11] MEDS: APIXABAN 5 MG TAB PO SCH ×2 (08:22→21:07)
[2021-10-11] MEDS: methocarbamoL 750 MG TAB PO SCH ×3 (08:22→21:07)
[2021-10-11 09:18] LABS: Basophils # (A) 0.05 X 10*3/uL (0.00-0.10); Basophils % (A) 0.6 %; Eosinophils # (A) 0.16 X 10*3/uL (0.04-0.35); Eosinophils % (A) 1.9 %; HGB 8.8 g/dL (12.0-15.0); Immature Grans, Automated 1.3 %; Lymphocytes # (A) 0.95 X 10*3/uL (0.90-5.00); Lymphocytes % (A) 11.4 %; MCH 32.4 pg (27.0-32.0); MCHC 31.4 g/dL (32.0-37.0); MCV 102.9 fL (80.0-97.0); Mean Platelet Volume 9.8 fL (9.5-12.2); Monocytes # (A) 0.83 X 10*3/uL (0.20-1.00); Monocytes % (A) 9.9 %; NRBC Per 100 WBC 0 /100 WBCS (0.0-0.0); Neutrophils # (A) 6.26 X 10*3/uL (1.80-7.70); Neutrophils % (A) 74.9 %; Platelet Count 379 X 10*3/uL (140-440); RBC 2.72 X 10*6/uL (4.10-5.20); RDW 14.9 % (11.5-14.5); WBC 8.36 X 10*3/uL (4.50-10.00)
[2021-10-11 09:43] LABS: African American GFR (CKD) >90 (>60 ml/min/1.73 sqM); Anion Gap 2 mmol/L; Blood Urea Nitrogen 9 mg/dL (7-17); Calcium 7.3 mg/dL (8.4-10.2); Carbon Dioxide 28 mmol/L (22-30); Chloride 110 mmol/L (98-107); Glucose 85 mg/dL (74-99); Magnesium 1.8 mg/dL (1.6-2.3); Non-African American GFR(CKD) 90 (>60 ml/min/1.73 sqM); Sodium 140 mmol/L (137-145)
[2021-10-11 11:31] LABS: Glucose,Whole Blood 113 mg/dL (75-99)
[2021-10-11] MEDS: HYDROcodone/APAP 5-325MG 1 EACH TAB PO PRN ×2 (12:20→21:09)
--- NOTE | 2021-10-11 14:12 | P.PN ---
Subjective Progress Note Date: 10/11/21 CHIEF COMPLAINT: Sigmoid colon tumor HISTORY OF PRESENT ILLNESS: Postoperative day #10 status post exploratory laparotomy, sigmoid colectomy with end colostomy, partial cystectomy, left salpingectomy, appendectomy and repair of left ureter. Patient is sitting up in bedside chair. Dariana Castillo change patient's ostomy appliance. It was noted that patient had separation between the stoma and the edge of her abdomen on the medial aspect. Patient's ostomy is functioning. Patient does report slight i ncrease in abdominal pain today in the lower left abdomen. Her incision is still draining cloudy serosanguineous drainage. he is followed by urology and the hematuria is expected finding due to urology procedure. She is on Eliquis. Afebrile. WBC 8.36 hemoglobin 8.8 platelets 379 sodium 140 potassium 4.0 creatinine 0.69 magnesium 1.8 PHYSICAL EXAM: VITAL SIGNS: Reviewed. GENERAL: Well-developed in no acute distress. HEENT: No sclera icterus. Extraocular movements grossly intact. Moist buccal mucosa. Head is atraumatic, normocephalic. ABDOMEN: Soft. Patient tender to the left side of the abdomen near the incision. Also firmness noted. Separation between the stoma and the medial edge of the abdomen noted. Ostomy with stool present. Distal aspect of the incisions shows cloudy serosanguineous drainage. LUZMA drain with 60 mL of serosanguineous output NEUROLOGIC: Alert and oriented. Cranial nerves II through XII grossly intact. ASSESSMENT: 1. 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 Infection at abdominal incision site PLAN: -Continue local wound care to abdominal incision and ostomy -Continue Zosyn -Continue low fiber Diet -Patient is not ready for discharge. -Continue Mcfarland catheter as instructed by urology -Encourage patient to ambulate and increase activity -Encourage patient to use incentive spirometer -DVT prophylaxis on Eliquis and GI prophylaxis Pepcid Physician Civil Engineering Specialist note has been reviewed by physician. Signing provider agrees with the documented findings, assessment, and plan of care. I have personally seen and examined the patient, reviewed the DATA MANAGEMENT SPECIALIST /PAs history, exam and MDM and agree with the assessment and plan as written. Based on total visit time, I have performed more than 50% of the visit. As above: Patient continues to be fatigued. Wound found adjacent to the ostomy today. Continue local wound care there and also along the midline incision. Continue encouraging oral intake. Final pathology pending. Objective - Vital Signs Vital signs: Vital Signs Temp 98.0 F 10/11/21 11:51 Pulse 89 10/11/21 11:51 Resp 20 10/11/21 11:51 BP 130/74 10/11/21 11:51 Pulse Ox 98 10/11/21 11:51 Intake & Output 10/10/21 10/11/21 10/11/21 18:59 06:59 18:59 Intake Total 814 005 0198 Output Total 780 1060 300 Balance -440 -960 900 Weight 72 kg Intake: Intake, IV Titration 100 100 Amount Piperacillin-Tazobactam 3 100 100 .375 gm In Sodium Chloride 0.9% 100 ml @ 25 mls/hr IVPB Q8HR [facility] Rx# :[id number] Oral 240 1200 Output: Drainage 30 60 Lower Abdomen 30 60 Urine 450 700 Stool 300 300 300 Other: Voiding Method Indwelling Catheter Indwelling Catheter Indwelling Catheter - Labs CBC & Chem 7: 10/11/21 05:04 10/11/21 05:04 Labs: Abnormal Lab Results - Last 24 Hours (Table) 10/10/21 10/10/21 10/11/21 Range/Units 17:01 20:48 05:04 RBC 2.72 L (4.10-5.20) X 10*6/uL Hgb 8.8 L (12.0-15.0) g/dL Hct 28.0 L (37.2-46.3) % MCV 102.9 H (80.0-97.0) fL MCH 32.4 H (27.0-32.0) pg MCHC 31.4 L (32.0-37.0) g/dL RDW 14.9 H (11.5-14.5) % Immature Gran # 0.11 H (0.00-0.04) X 10*3/uL Chloride (98-107) mmol/L POC Glucose (mg/dL) 100 H 115 H (75-99) mg/dL Calcium (8.4-10.2) mg/dL 10/11/21 10/11/21 Range/Units 05:04 11:29 RBC (4.10-5.20) X 10*6/uL Hgb (12.0-15.0) g/dL Hct (37.2-46.3) % MCV (80.0-97.0) fL MCH (27.0-32.0) pg MCHC (32.0-37.0) g/dL RDW (11.5-14.5) % Immature Gran # (0.00-0.04) X 10*3/uL Chloride 110 H (98-107) mmol/L POC Glucose (mg/dL) 113 H (75-99) mg/dL Calcium 7.3 L (8.4-10.2) mg/dL Microbiology - Last 24 Hours (Table) 10/10/21 12:35 Gram Stain - Preliminary Abdomen Wound Culture - Preliminary Gram Neg Bacilli
[2021-10-11 16:52] LABS: Glucose,Whole Blood 95 mg/dL (75-99)
[2021-10-11 20:03] LABS: Glucose,Whole Blood 109 mg/dL (75-99)
[2021-10-11] MEDS: ATORVASTATIN 40 MG TAB PO SCH (21:07)
--- NOTE | 2021-10-12 00:49 | P.PN ---
Subjective Progress Note Date: 10/11/21 66-year-old female presents to the emergency department with a chief complaint of abdominal pain. Patient states her symptoms started 10 days ago. Describes it as generalized abdominal pain with no radiation. No back pain. She states she had intermittent nausea for the first couple days that has since resolved. No fever, chills, vomiting, or diarrhea. Normal bowel movements with last bowel movement yesterday, nonbloody. Patient has been tolerating oral intake okay however states her appetite has decreased. No burning with urination, increased urinary frequency/urgency, or blood in the urine. No chest pain or shortness of breath. Patient does have history of atrial fibrillation on Libby ling. No upper respiratory symptoms or recent sick contacts. No previous abdominal surgeries. Patient does admit to tobacco use with [id number] history. She denies family history of aneurysm. CT is significant for a suspected partial large bowel obstruction secondary to eccentric bowel wall thickening of the sigmoid colon which is suspicious for primary malignancy. EKG revealed atrial fibrillation with rapid ventricular response; patient was started on IV Cardizem Patient continues to have abdominal distention and pain; no bowel movements; general surgery on board and planning to repeat abdominal x-ray with tentative plan for partial colectomy tomorrow Patient remains in atrial fibrillation with controlled ventricular response at this time; no anticoagulation therapy for anticipated surgery in next 24-48 hours; echocardiogram reveals normal LV function and no significant valvular abnormalities; cardiology on board and recommending to continue with Lasix 20 mg daily for mild fluid overload; Resume the care of the patient 10/01/2021. Patient awake and alert. She still with abdominal complaint and pain and discomfort with no bowel movement. Surgery team are planning for exploratory laparotomy with possible diverting colostomy and possible sigmoid resection. Hydrotechnical Specialist team on the case also for preop evaluation and also for her A. fib. Currently rate controlled on metoprolol and oral Lasix. She is on D5 half-normal saline at 50 mL per hour, Flagyl and Zosyn. Labs look stable. 10/02/2021 Patient with sigmoid mass status post exploratory laparotomy with Sigmoid colectomy with end colostomy, Partial cystectomy, Left salpingectomy, Appendectomy, Repair of left ureterPeriod secondary to left ureteral injury during surgical resection. Patient vomited by urologist and had left ureteral repair. Currently has a Neal catheter was recommendation to stay for 2 weeks. Post operatively patient got intubated. Patient currently remains on mechanical ventilation She remains on Zosyn, Eliquis on hold. Patient is started on Pepcid and subcu heparin.. She received also normal saline boluses 10/03/2021 Today patient in the ICU status post extubation. She is postoperative day #2. She still nothing by mouth, awake but very weak. Her colostomy back in a Place, no bowel movement yet. Also Neal catheter with PATRICE drain with more than 200 of serosanguineous fluid. Her pathology is pending, Eliquis still on hold, patient kept on Flagyl and Zos yn and IV fluids. Patient received 1 L of normal saline for hypertension, also her metoprolol dose lowered to 25 mg. 10/04/2021 Patient clinically is improving gradually, her pain at the surgery site is country of, she is fully awake and oriented, she does not look in distress. Her colostomy tube in the left lower quadrant abdomen with some small amounts light brown stool. Neal catheter in place with yellow urine. A follow-up for stent urologist recommended CT of the abdomen without contrast was showing mild positioning of the double J stent, CT urogram is ordered and is pending, neurology following closely. Other that clinically she is doing generally well, improving slowly. She kept nothing by mouth with surgery team following him closely as well. Patient's can go to the general medical floor today. Continue with Flagyl and Zosyn, D5 half-normal saline at 50 mL/h and metoprolol increased to 25 g 3 times a day today. She is also a small dose of oral Lasix while Eliquis still on hold 10/05/2021 Patient remains nothing by mouth, colostomy with no bowel movement or gas. Neal catheter in place. She remains on D5 half-normal saline at 50 mL per hour She looks tired but no distress. Hemodynamically stable. Labs reviewed with WBC 8.2, creatinine 1.1. CT urogram: Extraluminal secreted IV contrast most pronounced along the left ureter with some also appearing near the distal right ureter on delayed imaging. This is favored to represent a left ureteral injury with layering in the pelvis. Right ureteral injury is not entirely exclude it.A left ureteral stent is seen. urologist on the case 10/06/2021 patient remains clinically same with no significant change, she is tired looking, she still nothing by mouth. Colostomy back still not showing bowel movements today however it has bowel movement yesterday Neal catheter in place. Patient followed closely by urology service Pathology did not show final diagnosis and the specimen was sent to [facility] by pathologist for consultation. Oncology team on the case also. Continue with Zosyn, Flagyl and D5 half-normal saline at 50 mL per hour. 10/07/2021 Patient generally doing well and she is improving gradually and slowly. His morning she was still nothing by mouth but surgery team are planning to start her on diet and liquid diet today. Colostomy back is working and last time and it was last night. Neal catheter in place with some dark colored urine which is expected from her recent surgery and some bleeding. Repeat chest x-ray showing pleural effusion with atelectasis. Pending pathology which is sent then [facility] for further consultation. She remains on Flagyl and Zosyn and D5 half-normal saline at 50. Eliquis on hold 10/08/2021 Patient is seen and evaluated this morning with multiple medical consultations following as patient is status post sigmoid mass status post exploratory laparotomy with Sigmoid colectomy with end colostomy, Partial cystectomy, Left salpingectomy, Appendectomy, Repair of left ureter. Patient being followed by urology as well and currently has a Neal catheter was recommendation to stay for 2 weeks. Patient with some hematuria noted in the neal and hemoglobin is currently stable and will resume eliquis with cardiology following and ok per surgery recommendations and will monitor labs closely. Oncology following as well and awaiting second opinion of patho that was sent to [facility]. Patient with continued weakness and working with PT/OT therapy. Magnesium mildly low at 1.7 and will replace per protocol. Patient currently on 2L via NC with pulmonary following as well. Recommend a dose of IV lasix. Encouraged incentive spirometer use. Patient denies chest pain or worsening shortness of breath. Patient is afebrile. Patient started on diet and tolerating and advancing slowly per surgery recommendations. 10/09/2021 Patient is seen in follow-up this morning with no acute overnight issues noted. Multiple medical consultations including oncology, urology, pulmonary following closely and chest x-ray ordered and pending. Patient is currently on room air and tolerating oxygen saturations above 93% and denies any shortness of breath. Patient denies chest pain and is tolerating diet. Patient is also been seen and evaluated by cardiology recommending resuming anticoagulant which has been done. Patient with noted hematuria in the Neal and has been evaluated by urology and this is noted to be in expected outcome of recent surgery. Patient also with left ureteral stent and will require outpatient follow-up in 6 weeks. Patient is to continue with indwelling Neal catheter and will follow-up with repeat labs. Hemoglobin is stable at 10.1 today and BMP within normal limits. Magnesium is 2.2. Patient encouraged increased activity as tolerated although continues with weakness physical therapy has evaluated the patient recommending subacute rehab and social work following as patient has been accepted to [facility] and requiring insurance authorization. Will discuss with other consultations about treatment plan moving forward with possible discharge to [facility] in 24 hours. 10/10/2021 Patient is seen today with multiple medical consultations following. General surgery also following as patient continues with LUZMA drain although output is minimal. Patient reports to having some leaking noted at the bottom of the surg ical site and will be redressing site and evaluating. Patient with noted hematuria and urology following and hemoglobin remained stable and will continue with indwelling Neal catheter. Patient had been off antibiotic therapy and remaining afebrile although with some noted drainage is being started on IV Zosyn and will continue to monitor closely. Patient tolerating diet and stool and gas noted in the ostomy and abdomen less tender today. Chest x-ray yesterday revealed continued moderate right but increased small left pleural effusion with basilar opacification is an adjacent atelectasis with no significant change from previous. Patient reports to feeling some mild shortness of breath today and was placed back on 2 L. Oxygen saturation is 97% on the 2 L. Wean FiO2 as tolerated and encouraged incentive spirometer use at the bedside. Patient extremely weak and working with physical therapy daily and will be going to rehab at [facility] once stabilized and discharged. 10/11/2021 Patient is seen this morning with having some continued drainage noted of the surgical site and also was noted by ostomy nurse that there is a separation of the stoma from the abdominal wall and surgery made aware. Patient preliminary cultures showing gram negative bacilli and has been started on IV zosyn. Patient is continued on 2L via NC and needs encouragement on the use of the incentive spirometer. Patient continues with weakness and is working with physical therapy daily. Patient planning on rehab on discharge with social work following. Pathology pending. Review of systems: Constitutional: No reports of fatigue, fever, or chills Cardiovascular: No reports of chest pain or palpitations Respiratory: No reports of worsening shortness of breath or cough GI: No reports of nausea, vomiting, or diarrhea : No reports of dysuria or retention Neurovascular: reports of generalized weakness All medications have been reviewed Active Medications Hydrocodone Bitart/Acetaminophen (Hydrocodone/Apap 5-325mg 1 Each Tab) 1 each PO Q4HR PRN PRN Reason: Pain Last Admin: 10/11/21 21:09 Dose: 1 each Documented by: Albuterol/Ipratropium (Ipratropium-Albuterol 3 Ml Neb) 3 ml INHALATION RT-QID PRN PRN Reason: Shortness Of Breath Or Wheezing Last Admin: 09/29/21 10:51 Dose: 3 ml Documented by: Apixaban (Apixaban 5 Mg Tab) 5 mg PO BID [facility]; Protocol Last Admin: 10/11/21 21:07 Dose: 5 mg Documented by: Atorvastatin Calcium (Atorvastatin 40 Mg Tab) 40 mg PO HS [facility] Last Admin: 10/11/21 21:07 Dose: 40 mg Documented by: Benzocaine/Menthol (Benzocaine/Menthol Lozeng 1 Each Lozenge) 1 each MUCOUS MEM Q1HR PRN PRN Reason: Sore Throat Digoxin (Digoxin 125 Mcg Tab) 125 mcg PO DAILY [facility] Last Admin: 10/11/21 08:22 Dose: 125 mcg Documented by: Famotidine (Famotidine 20 Mg/2 Ml Vial) 20 mg IV DAILY [facility] Last Admin: 10/11/21 08:22 Dose: 20 mg Documented by: Hydromorphone HCl (Hydromorphone 1 Mg/Ml 1 Ml Syringe) 1 mg IVP Q6HR PRN PRN Reason: Pain Last Admin: 10/06/21 09:10 Dose: 1 mg Documented by: Hydromorphone HCl (Hydromorphone 1 Mg/Ml 1 Ml Syringe) 1 mg IVP Q3HR PRN PRN Reason: Severe Pain Last Admin: 10/06/21 19:14 Dose: 1 mg Documented by: Hydromorphone HCl (Hydromorphone 0.5 Mg/0.5 Ml Syringe) 0.25 mg IVP Q1HR PRN PRN Reason: Pain Last Admin: 10/06/21 05:01 Dose: 0.25 mg Documented by: Piperacillin Sod/Tazobactam (Sod 3.375 gm/ Sodium Chloride) 100 mls @ 25 mls/hr IVPB Q8HR [facility]; Protocol Last Admin: 10/12/21 00:00 Dose: 25 mls/hr Documented by: Insulin Aspart (Insulin Aspart (Novolog) 100 Unit/Ml Vial) 0 unit SQ ACHS [facility]; Protocol Last Admin: 10/11/21 21:07 Dose: Not Given Documented by: Methocarbamol (Methocarbamol 750 Mg Tab) 750 mg PO TID [facility] Last Admin: 10/11/21 21:07 Dose: 750 mg Documented by: Metoclopramide HCl (Metoclopramide 5 Mg/Ml 2 Ml Vial) 10 mg IVP Q6HR PRN PRN Reason: Nausea and Vomiting Metoprolol Tartrate (Metoprolol Tartrate 25 Mg Tab) 25 mg PO TID [facility] Last Admin: 10/11/21 21:07 Dose: 25 mg Documented by: Miscellaneous Information (Magnesium Replacement Protocol 1 Each Misc) 1 each MISCELLANE DAILY PRN; Protocol PRN Reason: Per Protocol Miscellaneous Information (Magnesium Replacement Protocol 1 Each Misc) 1 each MISCELLANE DAILY PRN; Protocol PRN Reason: Per Protocol Naloxone HCl (Naloxone 0.4 Mg/Ml 1 Ml Vial) 0.2 mg IV Q2M PRN PRN Reason: Opioid Reversal Ondansetron HCl (Ondansetron 4 Mg/2 Ml Vial) 4 mg IVP Q8HR PRN PRN Reason: Nausea And Vomiting Last Admin: 10/02/21 09:06 Dose: 4 mg Documented by: Physical exam: GENERAL: The patient is alert and oriented x3, not in any acute distress. Well developed, well nourished. HEENT: Pupils are round and equally reacting to light. EOMI. No scleral icterus. No conjunctival pallor. Normocephalic, atraumatic. No pharyngeal erythema. No thyromegaly. CARDIOVASCULAR: S1 and S2 present. No murmurs, rubs, or gallops. PULMONARY: diminished breath sounds bilaterally with , no wheezing or crackles, some scattered rhonchi noted. ABDOMEN: Soft, mild generalized tenderness and mild generalized distention, some mild drainage noted from surgical site, normoactive bowel sounds. No palpable organomegaly. Colostomy bag in place, Neal catheter with hematuria noted MUSCULOSKELETAL: No joint swelling or deformity. EXTREMITIES: No cyanosis, clubbing, or pedal edema. NEUROLOGICAL: Gross neurological examination did not reveal any focal deficits. diffuse weakness SKIN: No rashes. no petechiae. Assessment: -Sigmoid wall thickening suspicious for sigmoid mass with partial colon obstruct ion. status post exploratory laparotomy with Sigmoid colectomy with end colostomy, Partial cystectomy, Left salpingectomy, Appendectomy, Repair of left ureter secondary to left ureteral injury during surgical resection -A. fib with RVR, currently rate controlled -surgical site wound infection showing gram negative bacilli -Hypertension -Hyperlipidemia -History of COPD, not in acute exacerbation -hypomagnesemia, improved -GI prophylaxis -DVT prophylaxis -Full code Plan: This is a pleasant 66 years old female. status post bowel surgery for her possible large sigmoid colon mass. Also with A. fib. that is currently rate controlled. Cardiology following as needed and has been resumed on eliquis Encouraged Incentive spirometer at the bedside and encourage the patient to continue using at least 10 times every hour while awake, wean FI02 as tolerated, currently on 2L via NC Multiple medical consultations following including Pulmonary, Surgery, urology, and cardiology team following. Oncology following as well and Pathology sent to [facility] and awaiting patho report. Pathologic report pending and oncology arranging for outpatient follow-up PT/OT: Following patient is agreeable to ECF and has been accepted at [facility] and authorization obtained and will follow-up with other consultations about treatment plan and am waiting for finalized wound cultures with preliminary growing gram negative bacilli and will continue with IV zosyn. Social work following for discharge planning Will repeat am labs and replace electrolytes per protocol. Urology following and patient will continue with indwelling neal catheter with outpatient follow up in 2 weeks. Hematuria noted and hemoglobin is stable. 8.8 today Have resumed eliquis per surgery and will monitor closely for drop in hemoglobin or any worsening hematuria. Due to multiple complex medical issues, prognosis is guarded The impression and plan of care has been dictated by Tamera Ling, Nurse Practitioner as directed. Dr. Loy MD I have performed a history and examination and MDM of this patient, discussed the same with the dictator, and agree with the dictator's assessment and plan as written ,documented as a scribe. Based on total visit time, I have performed more than 50% of the visit. Objective - Vital Signs Vital signs: Vital Signs Temp 98.2 F 10/11/21 04:49 Pulse 98 10/11/21 04:49 Resp 20 10/11/21 04:49 BP 147/76 10/11/21 04:49 Pulse Ox 98 10/10/21 20:23 Intake & Output 10/10/21 10/11/21 10/11/21 18:59 06:59 18:59 Intake Total 340 100 Output Total 780 1060 Balance -440 -960 Intake: Intake, IV Titration 100 100 Amount Piperacillin-Tazobactam 3 100 100 .375 gm In Sodium Chloride 0.9% 100 ml @ 25 mls/hr IVPB Q8HR [facility] Rx# :[id number] Oral 240 Output: Drainage 30 60 Lower Abdomen 30 60 Urine 450 700 Stool 300 300 Other: Voiding Method Indwelling Catheter Indwelling Catheter - Labs CBC & Chem 7: 10/11/21 05:04 10/11/21 05:04 Labs: Abnormal Lab Results - Last 24 Hours (Table) 10/10/21 10/10/21 10/10/21 Range/Units 11:50 17:01 20:48 POC Glucose (mg/dL) 141 H 100 H 115 H (75-99) mg/dL Microbiology - Last 24 Hours (Table) 10/10/21 12:35 Gram Stain - Preliminary Abdomen Wound Culture - Preliminary
[2021-10-12 07:00] LABS: Basophils % (A) 1 %; Eosinophils # (A) 0.1 k/uL (0-0.7); Eosinophils % (A) 1 %; HCT 29.5 % (34.0-46.0); HGB 9.2 gm/dL (11.4-16.0); Hypochromasia Slight; Lymphocytes # (A) 0.8 k/uL (1.0-4.8); Lymphocytes % (A) 11 %; MCH 32.9 pg (25.0-35.0); MCHC 31.3 g/dL (31.0-37.0); Macrocytosis Moderate; Mean Platelet Volume 7.2; Monocytes # (A) 0.4 k/uL (0-1.0); Monocytes % (A) 6 %; Neutrophils # (A) 6.2 k/uL (1.3-7.7); Neutrophils % (A) 80 %; Platelet Count 472 k/uL (150-450); RBC 2.81 m/uL (3.80-5.40); RDW 14.2 % (11.5-15.5); WBC 7.7 k/uL (3.8-10.6)
[2021-10-12 07:03] LABS: African American GFR (CKD) >90 (>60 ml/min/1.73 sqM); Anion Gap 1 mmol/L; Blood Urea Nitrogen 7 mg/dL (7-17); Calcium 7.2 mg/dL (8.4-10.2); Carbon Dioxide 29 mmol/L (22-30); Chloride 109 mmol/L (98-107); Glucose 88 mg/dL (74-99); Magnesium 1.8 mg/dL (1.6-2.3); Non-African American GFR(CKD) >90 (>60 ml/min/1.73 sqM); Potassium 4.1 mmol/L (3.5-5.1); Sodium 139 mmol/L (137-145)
[2021-10-12 07:22] LABS: Glucose,Whole Blood 96 mg/dL (75-99)
[2021-10-12] MEDS: METOPROLOL TARTRATE 25 MG TAB PO SCH ×3 (08:06→21:36)
[2021-10-12] MEDS: PIPERACILLIN-TAZOBACTAM 3.375 GM in SODIUM CHLORIDE 0.9% 100 ML IVPB SCH ×5 (08:06→23:37)
[2021-10-12] MEDS: APIXABAN 5 MG TAB PO SCH ×2 (08:06→21:35)
[2021-10-12] MEDS: methocarbamoL 750 MG TAB PO SCH ×4 (08:06→21:38)
[2021-10-12] MEDS: DIGOXIN 125 MCG TAB PO SCH (08:06)
[2021-10-12] MEDS: FAMOTIDINE 20 MG/2 ML VIAL IV SCH (08:06)
[2021-10-12] MEDS: INSULIN ASPART (NovoLOG) 100 UNIT/ML VIAL SQ SCH ×4 (08:08→21:36)
[2021-10-12] MEDS: HYDROcodone/APAP 5-325MG 1 EACH TAB PO PRN ×3 (08:23→21:35)
--- NOTE | 2021-10-12 08:29 | P.PN ---
Subjective Progress Note Date: 10/12/21 The patient continues to recouperate from her major surgical procedures. Her urine is clearing. The colostomy is functioning. SHe is ambulating with assistance. From a urological standpoint she is doing well. she will go home with the neal for naother week. SHe will have her double j catheter for another 5 weeks. We will follow. Objective - Vital Signs Vital signs: Vital Signs Temp 98.6 F 10/12/21 05:00 Pulse 92 10/12/21 05:00 Resp 20 10/12/21 05:00 BP 153/84 10/12/21 05:00 Pulse Ox 97 10/12/21 08:26 Intake & Output 10/11/21 10/12/21 10/12/21 18:59 06:59 18:59 Intake Total 2100 1270 Output Total 320 520 Balance 1780 750 Weight 72 kg Intake: Intake, IV Titration 200 Amount Piperacillin-Tazobactam 3 200 .375 gm In Sodium Chloride 0.9% 100 ml @ 25 mls/hr IVPB Q8HR [facility] Rx# :[id number] Oral 2100 1070 Output: Drainage 20 120 Lower Abdomen 20 120 Urine 400 Stool 300 Other: Voiding Method Indwelling Catheter Indwelling Catheter - Labs CBC & Chem 7: 10/12/21 06:24 10/12/21 06:24 Labs: Abnormal Lab Results - Last 24 Hours (Table) 10/11/21 10/11/21 10/11/21 Range/Units 05:04 05:04 11:29 RBC 2.72 L (4.10-5.20) X 10*6/uL Hgb 8.8 L (12.0-15.0) g/dL Hct 28.0 L (37.2-46.3) % MCV 102.9 H (80.0-97.0) fL MCH 32.4 H (27.0-32.0) pg MCHC 31.4 L (32.0-37.0) g/dL RDW 14.9 H (11.5-14.5) % Plt Count (150-450) k/uL Immature Gran # 0.11 H (0.00-0.04) X 10*3/uL Lymphocytes # (1.0-4.8) k/uL Chloride 110 H (98-107) mmol/L POC Glucose (mg/dL) 113 H (75-99) mg/dL Calcium 7.3 L (8.4-10.2) mg/dL 10/11/21 10/12/21 10/12/21 Range/Units 20:02 06:24 06:24 RBC 2.81 L (4.10-5.20) X 10*6/uL Hgb 9.2 L (12.0-15.0) g/dL Hct 29.5 L (37.2-46.3) % MCV 105.0 H (80.0-97.0) fL MCH (27.0-32.0) pg MCHC (32.0-37.0) g/dL RDW (11.5-14.5) % Plt Count 472 H (150-450) k/uL Immature Gran # (0.00-0.04) X 10*3/uL Lymphocytes # 0.8 L (1.0-4.8) k/uL Chloride 109 H (98-107) mmol/L POC Glucose (mg/dL) 109 H (75-99) mg/dL Calcium 7.2 L (8.4-10.2) mg/dL Microbiology - Last 24 Hours (Table) 10/10/21 12:35 Gram Stain - Preliminary Abdomen Wound Culture - Preliminary Gram Neg Bacilli
--- NOTE | 2021-10-12 12:02 | P.PN ---
Subjective Progress Note Date: 10/12/21 CHIEF COMPLAINT: Sigmoid colon tumor HISTORY OF PRESENT ILLNESS: Postoperative day #11 status post exploratory laparotomy, sigmoid colectomy with end colostomy, partial cystectomy, left salpingectomy, appendectomy and repair of left ureter. Patient sitting up in bed. She does complain of abdominal pain. Muscle between the incision and ostomy. Denies any nausea vomiting. Ostomy is functioning. She reports that she is eating better today. Afebrile. Culture from incision site did grow gram-negative bacilli. WBC 7.7 hemoglobin is up from 8.8-9.2 platelets 139 potassium 4.1 creatinine 0.65 magnesium 1.8. Hematuria in neal catheter, expected finding. Followed by urology. PHYSICAL EXAM: VITAL SIGNS: Reviewed. GENERAL: Well-developed in no acute distress. HEENT: No sclera icterus. Extraocular movements grossly intact. Moist buccal mucosa. Head is atraumatic, normocephalic. ABDOMEN: Soft. Patient tender to the left side of the abdomen between the incision and ostomy. Ostomy functioning. Abdominal incision packed with arcus also progressing. Sanguinous brownish discharge noted on the surgical dressing. NEUROLOGIC: Alert and oriented. Cranial nerves II through XII grossly intact. ASSESSMENT: 1. 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 Infection at abdominal incision site PLAN: -Continue local wound care to abdominal incision and ostomy -Continue Zosyn -Continue low fiber Diet -Patient is not ready for discharge -Continue Neal catheter as instructed by urology -Encourage patient to ambulate and increase activity -Encourage patient to use incentive spirometer -DVT prophylaxis on Eliquis and GI prophylaxis Pepcid Physician Hand Cigar Maker note has been reviewed by physician. Signing provider agrees with the documented findings, assessment, and plan of care. I have personally seen and examined the patient, reviewed the TRIM AND BURR OPERATOR /PAs history, exam and MDM and agree with the assessment and plan as written. Based on total visit time, I have performed more than 50% of the visit. As above: Patient complaining of some dysuria today. Urinary catheter remains in place. Midline incisional wound with seropurulent drainage seems to be decreasing. She is afebrile. White blood cell count is normal. Continue antibiotics. Continue local wound care. Objective - Vital Signs Vital signs: Vital Signs Temp 98.6 F 10/12/21 05:00 Pulse 92 10/12/21 05:00 Resp 20 10/12/21 05:00 BP 153/84 10/12/21 05:00 Pulse Ox 97 10/12/21 08:26 Intake & Output 10/11/21 10/12/21 10/12/21 18:59 06:59 18:59 Intake Total 2100 1270 Output Total 320 520 300 Balance 1780 750 -300 Weight 72 kg Intake: Intake, IV Titration 200 Amount Piperacillin-Tazobactam 3 200 .375 gm In Sodium Chloride 0.9% 100 ml @ 25 mls/hr IVPB Q8HR [facility] Rx# :[id number] Oral 2100 1070 Output: Drainage 20 120 Lower Abdomen 20 120 Urine 400 Stool 300 300 Other: Voiding Method Indwelling Catheter Indwelling Catheter Indwelling Catheter # Voids 1 - Labs CBC & Chem 7: 10/12/21 06:24 10/12/21 06:24 Labs: Abnormal Lab Results - Last 24 Hours (Table) 10/11/21 10/12/21 10/12/21 Range/Units 20:02 06:24 06:24 RBC 2.81 L (3.80-5.40) m/uL Hgb 9.2 L (11.4-16.0) gm/dL Hct 29.5 L (34.0-46.0) % MCV 105.0 H (80.0-100.0) fL Plt Count 472 H (150-450) k/uL Lymphocytes # 0.8 L (1.0-4.8) k/uL Chloride 109 H (98-107) mmol/L POC Glucose (mg/dL) 109 H (75-99) mg/dL Calcium 7.2 L (8.4-10.2) mg/dL Microbiology - Last 24 Hours (Table) 10/10/21 12:35 Gram Stain - Preliminary Abdomen Wound Culture - Preliminary Gram Neg Bacilli
[2021-10-12 12:37] LABS: Glucose,Whole Blood 130 mg/dL (75-99)
[2021-10-12 17:17] LABS: Glucose,Whole Blood 117 mg/dL (75-99)
--- NOTE | 2021-10-12 19:02 | P.PN ---
Subjective Progress Note Date: 10/12/21 66-year-old female presents to the emergency department with a chief complaint of abdominal pain. Patient states her symptoms started 10 days ago. Describes it as generalized abdominal pain with no radiation. No back pain. She states she had intermittent nausea for the first couple days that has since resolved. No fever, chills, vomiting, or diarrhea. Normal bowel movements with last bowel movement yesterday, nonbloody. Patient has been tolerating oral intake okay however states her appetite has decreased. No burning with urination, increased urinary frequency/urgency, or blood in the urine. No chest pain or shortness of breath. Patient does have history of atrial fibrillation on Libby ling. No upper respiratory symptoms or recent sick contacts. No previous abdominal surgeries. Patient does admit to tobacco use with [id number] history. She denies family history of aneurysm. CT is significant for a suspected partial large bowel obstruction secondary to eccentric bowel wall thickening of the sigmoid colon which is suspicious for primary malignancy. EKG revealed atrial fibrillation with rapid ventricular response; patient was started on IV Cardizem Patient continues to have abdominal distention and pain; no bowel movements; general surgery on board and planning to repeat abdominal x-ray with tentative plan for partial colectomy tomorrow Patient remains in atrial fibrillation with controlled ventricular response at this time; no anticoagulation therapy for anticipated surgery in next 24-48 hours; echocardiogram reveals normal LV function and no significant valvular abnormalities; cardiology on board and recommending to continue with Lasix 20 mg daily for mild fluid overload; Resume the care of the patient 10/01/2021. Patient awake and alert. She still with abdominal complaint and pain and discomfort with no bowel movement. Surgery team are planning for exploratory laparotomy with possible diverting colostomy and possible sigmoid resection. [employer] team on the case also for preop evaluation and also for her A. fib. Currently rate controlled on metoprolol and oral Lasix. She is on D5 half-normal saline at 50 mL per hour, Flagyl and Zosyn. Labs look stable. 10/02/2021 Patient with sigmoid mass status post exploratory laparotomy with Sigmoid colectomy with end colostomy, Partial cystectomy, Left salpingectomy, Appendectomy, Repair of left ureterPeriod secondary to left ureteral injury during surgical resection. Patient vomited by urologist and had left ureteral repair. Currently has a Neal catheter was recommendation to stay for 2 weeks. Post operatively patient got intubated. Patient currently remains on mechanical ventilation She remains on Zosyn, Eliquis on hold. Patient is started on Pepcid and subcu heparin.. She received also normal saline boluses 10/03/2021 Today patient in the ICU status post extubation. She is postoperative day #2. She still nothing by mouth, awake but very weak. Her colostomy back in a Place, no bowel movement yet. Also Neal catheter with PATRICE drain with more than 200 of serosanguineous fluid. Her pathology is pending, Eliquis still on hold, patient kept on Flagyl and Zos yn and IV fluids. Patient received 1 L of normal saline for hypertension, also her metoprolol dose lowered to 25 mg. 10/04/2021 Patient clinically is improving gradually, her pain at the surgery site is country of, she is fully awake and oriented, she does not look in distress. Her colostomy tube in the left lower quadrant abdomen with some small amounts light brown stool. Neal catheter in place with yellow urine. A follow-up for stent urologist recommended CT of the abdomen without contrast was showing mild positioning of the double J stent, CT urogram is ordered and is pending, neurology following closely. Other that clinically she is doing generally well, improving slowly. She kept nothing by mouth with surgery team following him closely as well. Patient's can go to the general medical floor today. Continue with Flagyl and Zosyn, D5 half-normal saline at 50 mL/h and metoprolol increased to 25 g 3 times a day today. She is also a small dose of oral Lasix while Eliquis still on hold 10/05/2021 Patient remains nothing by mouth, colostomy with no bowel movement or gas. Neal catheter in place. She remains on D5 half-normal saline at 50 mL per hour She looks tired but no distress. Hemodynamically stable. Labs reviewed with WBC 8.2, creatinine 1.1. CT urogram: Extraluminal secreted IV contrast most pronounced along the left ureter with some also appearing near the distal right ureter on delayed imaging. This is favored to represent a left ureteral injury with layering in the pelvis. Right ureteral injury is not entirely exclude it.A left ureteral stent is seen. urologist on the case 10/06/2021 patient remains clinically same with no significant change, she is tired looking, she still nothing by mouth. Colostomy back still not showing bowel movements today however it has bowel movement yesterday Neal catheter in place. Patient followed closely by urology service Pathology did not show final diagnosis and the specimen was sent to [facility] by pathologist for consultation. Oncology team on the case also. Continue with Zosyn, Flagyl and D5 half-normal saline at 50 mL per hour. 10/07/2021 Patient generally doing well and she is improving gradually and slowly. His morning she was still nothing by mouth but surgery team are planning to start her on diet and liquid diet today. Colostomy back is working and last time and it was last night. Neal catheter in place with some dark colored urine which is expected from her recent surgery and some bleeding. Repeat chest x-ray showing pleural effusion with atelectasis. Pending pathology which is sent then [facility] for further consultation. She remains on Flagyl and Zosyn and D5 half-normal saline at 50. Eliquis on hold 10/08/2021 Patient is seen and evaluated this morning with multiple medical consultations following as patient is status post sigmoid mass status post exploratory laparotomy with Sigmoid colectomy with end colostomy, Partial cystectomy, Left salpingectomy, Appendectomy, Repair of left ureter. Patient being followed by urology as well and currently has a Neal catheter was recommendation to stay for 2 weeks. Patient with some hematuria noted in the neal and hemoglobin is currently stable and will resume eliquis with cardiology following and ok per surgery recommendations and will monitor labs closely. Oncology following as well and awaiting second opinion of patho that was sent to [facility]. Patient with continued weakness and working with PT/OT therapy. Magnesium mildly low at 1.7 and will replace per protocol. Patient currently on 2L via NC with pulmonary following as well. Recommend a dose of IV lasix. Encouraged incentive spirometer use. Patient denies chest pain or worsening shortness of breath. Patient is afebrile. Patient started on diet and tolerating and advancing slowly per surgery recommendations. 10/09/2021 Patient is seen in follow-up this morning with no acute overnight issues noted. Multiple medical consultations including oncology, urology, pulmonary following closely and chest x-ray ordered and pending. Patient is currently on room air and tolerating oxygen saturations above 93% and denies any shortness of breath. Patient denies chest pain and is tolerating diet. Patient is also been seen and evaluated by cardiology recommending resuming anticoagulant which has been done. Patient with noted hematuria in the Neal and has been evaluated by urology and this is noted to be in expected outcome of recent surgery. Patient also with left ureteral stent and will require outpatient follow-up in 6 weeks. Patient is to continue with indwelling Neal catheter and will follow-up with repeat labs. Hemoglobin is stable at 10.1 today and BMP within normal limits. Magnesium is 2.2. Patient encouraged increased activity as tolerated although continues with weakness physical therapy has evaluated the patient recommending subacute rehab and social work following as patient has been accepted to [facility] and requiring insurance authorization. Will discuss with other consultations about treatment plan moving forward with possible discharge to [facility] in 24 hours. 10/10/2021 Patient is seen today with multiple medical consultations following. General surgery also following as patient continues with LUZMA drain although output is minimal. Patient reports to having some leaking noted at the bottom of the surg ical site and will be redressing site and evaluating. Patient with noted hematuria and urology following and hemoglobin remained stable and will continue with indwelling Neal catheter. Patient had been off antibiotic therapy and remaining afebrile although with some noted drainage is being started on IV Zosyn and will continue to monitor closely. Patient tolerating diet and stool and gas noted in the ostomy and abdomen less tender today. Chest x-ray yesterday revealed continued moderate right but increased small left pleural effusion with basilar opacification is an adjacent atelectasis with no significant change from previous. Patient reports to feeling some mild shortness of breath today and was placed back on 2 L. Oxygen saturation is 97% on the 2 L. Wean FiO2 as tolerated and encouraged incentive spirometer use at the bedside. Patient extremely weak and working with physical therapy daily and will be going to rehab at [facility] once stabilized and discharged. 10/11/2021 Patient is seen this morning with having some continued drainage noted of the surgical site and also was noted by ostomy nurse that there is a separation of the stoma from the abdominal wall and surgery made aware. Patient preliminary cultures showing gram negative bacilli and has been started on IV zosyn. Patient is continued on 2L via NC and needs encouragement on the use of the incentive spirometer. Patient continues with weakness and is working with physical therapy daily. Patient planning on rehab on discharge with social work following. Pathology pending. 10/12/2021 Patient is seen today and is reporting that she is weak and tired today. Patient is currently on IV zosyn and finalized cultures on the abdominal surgical site are ecoli with sensitivities to zosyn and will continue with IV abx. Patient is working with physical therapy and has daily. Patient reports to eating her meals and has been getting education on ostomy care. Patient will continue with indwelling neal catheter and closely monitor the urine for worsening hematuria. Hemoglobin is stable at 8.8 and will monitor daily. Patient is afebrile and denies chest pain or shortness of breath. Review of systems: Constitutional: No reports of fatigue, fever, or chills Cardiovascular: No reports of chest pain or palpitations Respiratory: No reports of worsening shortness of breath or cough GI: No reports of nausea, vomiting, or diarrhea : No reports of dysuria or retention Neurovascular: reports of generalized weakness All medications have been reviewed Active Medications Hydrocodone Bitart/Acetaminophen (Hydrocodone/Apap 5-325mg 1 Each Tab) 1 each PO Q4HR PRN PRN Reason: Pain Last Admin: 10/12/21 13:20 Dose: 1 each Documented by: Albuterol/Ipratropium (Ipratropium-Albuterol 3 Ml Neb) 3 ml INHALATION RT-QID PRN PRN Reason: Shortness Of Breath Or Wheezing Last Admin: 09/29/21 10:51 Dose: 3 ml Documented by: Apixaban (Apixaban 5 Mg Tab) 5 mg PO BID [facility]; Protocol Last Admin: 10/12/21 08:06 Dose: 5 mg Documented by: Atorvastatin Calcium (Atorvastatin 40 Mg Tab) 40 mg PO HS [facility] Last Admin: 10/11/21 21:07 Dose: 40 mg Documented by: Benzocaine/Menthol (Benzocaine/Menthol Lozeng 1 Each Lozenge) 1 each MUCOUS MEM Q1HR PRN PRN Reason: Sore Throat Digoxin (Digoxin 125 Mcg Tab) 125 mcg PO DAILY [facility] Last Admin: 10/12/21 08:06 Dose: 125 mcg Documented by: Famotidine (Famotidine 20 Mg/2 Ml Vial) 20 mg IV DAILY [facility] Last Admin: 10/12/21 08:06 Dose: 20 mg Documented by: Hydromorphone HCl (Hydromorphone 1 Mg/Ml 1 Ml Syringe) 1 mg IVP Q6HR PRN PRN Reason: Pain Last Admin: 10/06/21 09:10 Dose: 1 mg Documented by: Hydromorphone HCl (Hydromorphone 1 Mg/Ml 1 Ml Syringe) 1 mg IVP Q3HR PRN PRN Reason: Severe Pain Last Admin: 10/06/21 19:14 Dose: 1 mg Documented by: Hydromorphone HCl (Hydromorphone 0.5 Mg/0.5 Ml Syringe) 0.25 mg IVP Q1HR PRN PRN Reason: Pain Last Admin: 10/06/21 05:01 Dose: 0.25 mg Documented by: Piperacillin Sod/Tazobactam (Sod 3.375 gm/ Sodium Chloride) 100 mls @ 25 mls/hr IVPB Q8HR [facility]; Protocol Last Admin: 10/12/21 17:02 Dose: 25 mls/hr Documented by: Insulin Aspart (Insulin Aspart (Novolog) 100 Unit/Ml Vial) 0 unit SQ ACHS [facility]; Protocol Last Admin: 10/12/21 13:25 Dose: Not Given Documented by: Magnesium Oxide (Magnesium Oxide 400 Mg Tab) 400 mg PO DAILY [facility] Methocarbamol (Methocarbamol 750 Mg Tab) 750 mg PO TID [facility] Last Admin: 10/12/21 17:03 Dose: 750 mg Documented by: Metoclopramide HCl (Metoclopramide 5 Mg/Ml 2 Ml Vial) 10 mg IVP Q6HR PRN PRN Reason: Nausea and Vomiting Metoprolol Tartrate (Metoprolol Tartrate 25 Mg Tab) 25 mg PO TID [facility] Last Admin: 10/12/21 17:03 Dose: 25 mg Documented by: Miscellaneous Information (Magnesium Replacement Protocol 1 Each Misc) 1 each MISCELLANE DAILY PRN; Protocol PRN Reason: Per Protocol Miscellaneous Information (Magnesium Replacement Protocol 1 Each Misc) 1 each MISCELLANE DAILY PRN; Protocol PRN Reason: Per Protocol Naloxone HCl (Naloxone 0.4 Mg/Ml 1 Ml Vial) 0.2 mg IV Q2M PRN PRN Reason: Opioid Reversal Ondansetron HCl (Ondansetron 4 Mg/2 Ml Vial) 4 mg IVP Q8HR PRN PRN Reason: Nausea And Vomiting Last Admin: 10/02/21 09:06 Dose: 4 mg Documented by: Physical exam: GENERAL: The patient is alert and oriented x3, not in any acute distress. Well developed, well nourished. pale HEENT: Pupils are round and equally reacting to light. EOMI. No scleral icterus. No conjunctival pallor. Normocephalic, atraumatic. No pharyngeal erythema. No thyromegaly. CARDIOVASCULAR: S1 and S2 present. No murmurs, rubs, or gallops. PULMONARY: diminished breath sounds bilaterally with , no wheezing or crackles, some scattered rhonchi noted. ABDOMEN: Soft, mild generalized tenderness and mild generalized distention, some mild drainage noted from surgical site, normoactive bowel sounds. No palpable organomegaly. Colostomy bag in place, Neal catheter with hematuria noted MUSCULOSKELETAL: No joint swelling or deformity. EXTREMITIES: No cyanosis, clubbing, or pedal edema. NEUROLOGICAL: Gross neurological examination did not reveal any focal deficits. diffuse weakness SKIN: No rashes. no petechiae. Assessment: -Sigmoid wall thickening suspicious for sigmoid mass with partial colon obstruction. status post exploratory laparotomy with Sigmoid colectomy with end colostomy, Partial cystectomy, Left salpingectomy, Appendectomy, Repair of left ureter secondary to left ureteral injury during surgical resection -A. fib with RVR, currently rate controlled -surgical site wound infection finalized with ecoli -Hypertension -Hyperlipidemia -History of COPD, not in acute exacerbation -hypomagnesemia, improved -GI prophylaxis -DVT prophylaxis -Full code Plan: This is a pleasant 66 years old female. status post bowel surgery for her possible large sigmoid colon mass. Also with A. fib. that is currently rate controlled. Cardiology following as needed and has been resumed on eliquis Encouraged Incentive spirometer at the bedside and encourage the patient to continue using at least 10 times every hour while awake, wean FI02 as tolerated, currently on 2L via NC Multiple medical consultations following including Pulmonary, Surgery, urology, and cardiology team following. Oncology following as well and Pathology sent to [facility] and awaiting patho report. Pathologic report pending and oncology arranging for outpatient follow-up PT/OT: Following, patient is agreeable to [facility] and has been accepted at [facility] and authorization will be needed and will follow-up with other consultations about treatment plan Wound culture finalized showing ecoli of the abdominal surgical site and will continue IV Zosyn Will repeat am labs and replace electrolytes per protocol. Urology following and patient will continue with indwelling neal catheter with outpatient follow up in 2 weeks. Hematuria noted and hemoglobin is stable. 8.8 today Have resumed eliquis per surgery and will monitor closely for drop in hemoglobin or any worsening hematuria. Due to multiple complex medical issues, prognosis is guarded The impression and plan of care has been dictated by Tamera Ling, Nurse Practitioner as directed. Dr. Loy MD I have performed a history and examination and MDM of this patient, discussed the same with the dictator, and agree with the dictator's assessment and plan as written ,documented as a scribe. Based on total visit time, I have performed more than 50% of the visit. Objective - Vital Signs Vital signs: Vital Signs Temp 97.7 F 10/12/21 11:15 Pulse 84 10/12/21 11:15 Resp 14 10/12/21 11:15 BP 123/67 10/12/21 11:15 Pulse Ox 98 10/12/21 11:15 Intake & Output 10/11/21 10/12/21 10/12/21 18:59 06:59 18:59 Intake Total 2100 1270 600 Output Total 320 520 660 Balance 1780 750 -60 Weight 72 kg Intake: Intake, IV Titration 200 100 Amount Piperacillin-Tazobactam 3 200 100 .375 gm In Sodium Chloride 0.9% 100 ml @ 25 mls/hr IVPB Q8HR [facility] Rx# :[id number] Oral 2100 1070 500 Output: Drainage 20 120 60 Lower Abdomen 20 120 60 Urine 400 300 Stool 300 300 Other: Voiding Method Indwelling Catheter Indwelling Catheter Indwelling Catheter # Voids 1 - Labs CBC & Chem 7: 10/12/21 06:24 10/12/21 06:24 Labs: Abnormal Lab Results - Last 24 Hours (Table) 10/11/21 10/12/21 10/12/21 Range/Units 20:02 06:24 06:24 RBC 2.81 L (3.80-5.40) m/uL Hgb 9.2 L (11.4-16.0) gm/dL Hct 29.5 L (34.0-46.0) % MCV 105.0 H (80.0-100.0) fL Plt Count 472 H (150-450) k/uL Lymphocytes # 0.8 L (1.0-4.8) k/uL Chloride 109 H (98-107) mmol/L POC Glucose (mg/dL) 109 H (75-99) mg/dL Calcium 7.2 L (8.4-10.2) mg/dL 10/12/21 10/12/21 Range/Units 12:35 17:15 RBC (3.80-5.40) m/uL Hgb (11.4-16.0) gm/dL Hct (34.0-46.0) % MCV (80.0-100.0) fL Plt Count (150-450) k/uL Lymphocytes # (1.0-4.8) k/uL Chloride (98-107) mmol/L POC Glucose (mg/dL) 130 H 117 H (75-99) mg/dL Calcium (8.4-10.2) mg/dL Microbiology - Last 24 Hours (Table) 10/10/21 12:35 Gram Stain - Final Abdomen Wound Culture - Final Escherichia coli
[2021-10-12 20:29] LABS: Glucose,Whole Blood 136 mg/dL (75-99)
[2021-10-12] MEDS: FAMOTIDINE 20 MG TAB PO SCH (21:35)
[2021-10-12] MEDS: ATORVASTATIN 40 MG TAB PO SCH (21:36)
[2021-10-13 07:04] LABS: Glucose,Whole Blood 95 mg/dL (75-99)
[2021-10-13 07:10] LABS: Basophils % (A) 0 %; Eosinophils # (A) 0.2 k/uL (0-0.7); Eosinophils % (A) 3 %; HCT 30.2 % (34.0-46.0); HGB 9.1 gm/dL (11.4-16.0); Hypochromasia Moderate; Lymphocytes # (A) 0.9 k/uL (1.0-4.8); Lymphocytes % (A) 12 %; MCHC 30.2 g/dL (31.0-37.0); MCV 106.2 fL (80.0-100.0); Macrocytosis Moderate; Mean Platelet Volume 7.3; Monocytes # (A) 0.5 k/uL (0-1.0); Monocytes % (A) 7 %; Neutrophils # (A) 5.5 k/uL (1.3-7.7); Neutrophils % (A) 77 %; Platelet Count 460 k/uL (150-450); RBC 2.85 m/uL (3.80-5.40); RDW 13.7 % (11.5-15.5); WBC 7.2 k/uL (3.8-10.6)
[2021-10-13 07:23] LABS: African American GFR (CKD) >90 (>60 ml/min/1.73 sqM); Anion Gap 1 mmol/L; Blood Urea Nitrogen 6 mg/dL (7-17); Calcium 7.6 mg/dL (8.4-10.2); Carbon Dioxide 29 mmol/L (22-30); Chloride 108 mmol/L (98-107); Glucose 87 mg/dL (74-99); Magnesium 1.8 mg/dL (1.6-2.3); Non-African American GFR(CKD) >90 (>60 ml/min/1.73 sqM); Potassium 4.1 mmol/L (3.5-5.1); Sodium 138 mmol/L (137-145)
[2021-10-13] MEDS: INSULIN ASPART (NovoLOG) 100 UNIT/ML VIAL SQ SCH ×4 (08:11→20:40)
[2021-10-13] MEDS: FAMOTIDINE 20 MG TAB PO SCH ×2 (08:19→20:40)
[2021-10-13] MEDS: METOPROLOL TARTRATE 25 MG TAB PO SCH ×3 (08:19→20:40)
[2021-10-13] MEDS: MAGNESIUM OXIDE 400 MG TAB PO SCH (08:20)
[2021-10-13] MEDS: DIGOXIN 125 MCG TAB PO SCH (08:20)
[2021-10-13] MEDS: APIXABAN 5 MG TAB PO SCH ×2 (08:20→20:39)
[2021-10-13] MEDS: methocarbamoL 750 MG TAB PO SCH ×3 (08:20→20:40)
[2021-10-13] MEDS: PIPERACILLIN-TAZOBACTAM 3.375 GM in SODIUM CHLORIDE 0.9% 100 ML IVPB SCH ×2 (08:38→16:38)
[2021-10-13] MEDS: HYDROcodone/APAP 5-325MG 1 EACH TAB PO PRN ×2 (08:47→20:39)
[2021-10-13 11:46] LABS: Glucose,Whole Blood 91 mg/dL (75-99)
--- NOTE | 2021-10-13 14:04 | P.PN ---
Subjective Progress Note Date: 10/13/21 CHIEF COMPLAINT: Sigmoid tumor HISTORY OF PRESENT ILLNESS: The patient is a 66-year-old female with complicated surgical history including laparotomy, sigmoid colectomy, repair of left ureter. She is tolerating diet. She is sitting at bedside with dressing changes be performed. ROS: No reports of nausea and vomiting. No bowel movements. No fevers or chills. No new chest pain. No productive sputum PHYSICAL EXAM: VITAL SIGNS: Reviewed CONSTITUTIONAL: Well developed and in no acute distress. EYES: Conjuctivae without sclera icterus. Extraocular movements grossly intact. HEAD, EARS, NOSE, THROAT: Moist buccal mucosa. Head is atraumatic, normocephalic. Hears conversational speech. No nasal drainage. RESPIRATORY: Non-labored respirations and equal bilateral excursions. CARDIOVASCULAR: Palpable 2+ radial pulses. ABDOMEN: Ostomy patent functioning. Midline incision intact. Staple line previously removed with resolved erythema. MUSCULOSKELETAL: No gross deformity of the lower extremities noted. No clubbing. No cyanosis. SKIN: Good skin turgor. Well perfused. NEUROLOGIC: Cranial nerves II through XII grossly intact. No focal or lateralizing signs. PSYCH: Appropriate affect. Alert and oriented to person, place and time. CLINICAL LABS: Reviewed. WBC normal 7.2. Hemoglobin low 9.1 but stable from 9.2. ASSESSMENT: 1. Sigmoid tumor PLAN: 1. Continue diet as tolerated 2. Continue Mcfarland catheter with management per urology Objective - Vital Signs Vital signs: Vital Signs Temp 97.6 F 10/13/21 05:00 Pulse 73 10/13/21 05:00 Resp 18 10/13/21 05:00 BP 146/80 10/13/21 05:00 Pulse Ox 100 10/13/21 05:00 Intake & Output 10/12/21 10/13/21 10/13/21 18:59 06:59 18:59 Intake Total 600 500 Output Total 660 1720 Balance -60 -1220 Intake: Intake, IV Titration 100 Amount Piperacillin-Tazobactam 3 100 .375 gm In Sodium Chloride 0.9% 100 ml @ 25 mls/hr IVPB Q8HR [facility] Rx# :[id number] Oral 500 500 Output: Drainage 60 20 Lower Abdomen 60 20 Urine 300 1400 Stool 300 300 Other: Voiding Method Indwelling Catheter Indwelling Catheter # Voids 1 - Labs CBC & Chem 7: 10/13/21 06:37 10/13/21 06:37 Labs: Abnormal Lab Results - Last 24 Hours (Table) 10/12/21 10/12/21 10/12/21 Range/Units 12:35 17:15 20:27 RBC (3.80-5.40) m/uL Hgb (11.4-16.0) gm/dL Hct (34.0-46.0) % MCV (80.0-100.0) fL MCHC (31.0-37.0) g/dL Plt Count (150-450) k/uL Lymphocytes # (1.0-4.8) k/uL Chloride (98-107) mmol/L BUN (7-17) mg/dL POC Glucose (mg/dL) 130 H 117 H 136 H (75-99) mg/dL Calcium (8.4-10.2) mg/dL 10/13/21 10/13/21 Range/Units 06:37 06:37 RBC 2.85 L (3.80-5.40) m/uL Hgb 9.1 L (11.4-16.0) gm/dL Hct 30.2 L (34.0-46.0) % MCV 106.2 H (80.0-100.0) fL MCHC 30.2 L (31.0-37.0) g/dL Plt Count 460 H (150-450) k/uL Lymphocytes # 0.9 L (1.0-4.8) k/uL Chloride 108 H (98-107) mmol/L BUN 6 L (7-17) mg/dL POC Glucose (mg/dL) (75-99) mg/dL Calcium 7.6 L (8.4-10.2) mg/dL Microbiology - Last 24 Hours (Table) 10/10/21 12:35 Gram Stain - Final Abdomen Wound Culture - Final Escherichia coli
[2021-10-13 17:12] LABS: Glucose,Whole Blood 119 mg/dL (75-99)
[2021-10-13 20:17] LABS: Glucose,Whole Blood 126 mg/dL (75-99)
[2021-10-13] MEDS: ATORVASTATIN 40 MG TAB PO SCH (20:39)
[2021-10-14] MEDS: PIPERACILLIN-TAZOBACTAM 3.375 GM in SODIUM CHLORIDE 0.9% 100 ML IVPB SCH ×4 (00:07→23:55)
[2021-10-14 07:20] LABS: Glucose,Whole Blood 93 mg/dL (75-99)
[2021-10-14] MEDS: INSULIN ASPART (NovoLOG) 100 UNIT/ML VIAL SQ SCH ×4 (07:29→21:23)
[2021-10-14] MEDS: APIXABAN 5 MG TAB PO SCH ×2 (07:45→14:18)
[2021-10-14] MEDS: MAGNESIUM OXIDE 400 MG TAB PO SCH (07:46)
[2021-10-14] MEDS: METOPROLOL TARTRATE 25 MG TAB PO SCH ×3 (07:46→21:19)
[2021-10-14] MEDS: FAMOTIDINE 20 MG TAB PO SCH ×2 (07:46→21:19)
[2021-10-14] MEDS: DIGOXIN 125 MCG TAB PO SCH (07:46)
[2021-10-14] MEDS: methocarbamoL 750 MG TAB PO SCH ×3 (07:46→21:19)
[2021-10-14 09:31] LABS: Basophils # (A) 0.05 X 10*3/uL (0.00-0.10); Basophils % (A) 0.7 %; Eosinophils # (A) 0.22 X 10*3/uL (0.04-0.35); HCT 26.9 % (37.2-46.3); HGB 8.2 g/dL (12.0-15.0); Lymphocytes % (A) 12.4 %; MCH 31.7 pg (27.0-32.0); MCHC 30.5 g/dL (32.0-37.0); MCV 103.9 fL (80.0-97.0); Mean Platelet Volume 9.2 fL (9.5-12.2); Monocytes # (A) 0.78 X 10*3/uL (0.20-1.00); Monocytes % (A) 10.8 %; NRBC Per 100 WBC 0 /100 WBCS (0.0-0.0); Neutrophils # (A) 5.22 X 10*3/uL (1.80-7.70); Neutrophils % (A) 72.1 %; Platelet Count 459 X 10*3/uL (140-440); RBC 2.59 X 10*6/uL (4.10-5.20); RDW 14.7 % (11.5-14.5); WBC 7.24 X 10*3/uL (4.50-10.00)
--- NOTE | 2021-10-14 10:19 | P.PN ---
Subjective Progress Note Date: 10/14/21 The patient is 10 days status post ureteroureterostomy. She continues to improve. She also had prior to that a colon Exploration colectomy and colostomy. Her ureter was injured and eventually repaired. The LUZMA drainage is minimal the LUZMA drain was removed tomorrow. Catheter can come out in the next 24-48 hours. Vital signs are stable and she is afebrile. Objective - Vital Signs Vital signs: Vital Signs Temp 98.3 F 10/14/21 04:49 Pulse 94 10/14/21 04:49 Resp 20 10/14/21 04:49 BP 150/70 10/14/21 05:35 Pulse Ox 100 10/14/21 04:49 Intake & Output 10/13/21 10/14/21 10/14/21 18:59 06:59 18:59 Intake Total 200 100 118 Output Total 800 900 Balance -600 -800 118 Intake: Intake, IV Titration 200 100 Amount Piperacillin-Tazobactam 3 200 100 .375 gm In Sodium Chloride 0.9% 100 ml @ 25 mls/hr IVPB Q8HR [facility] Rx# :[id number] Oral 118 Output: Urine 400 800 Stool 400 Urine/Stool Mix 100 Other: Voiding Method Indwelling Catheter Indwelling Catheter Indwelling Catheter - Labs CBC & Chem 7: 10/14/21 06:29 10/13/21 06:37 Labs: Abnormal Lab Results - Last 24 Hours (Table) 10/13/21 10/13/21 10/14/21 Range/Units 17:06 20:07 06:29 RBC 2.59 L (4.10-5.20) X 10*6/uL Hgb 8.2 L (12.0-15.0) g/dL Hct 26.9 L (37.2-46.3) % MCV 103.9 H (80.0-97.0) fL MCHC 30.5 L (32.0-37.0) g/dL RDW 14.7 H (11.5-14.5) % Plt Count 459 H (140-440) X 10*3/uL MPV 9.2 L (9.5-12.2) fL Immature Gran # 0.07 H (0.00-0.04) X 10*3/uL POC Glucose (mg/dL) 119 H 126 H (75-99) mg/dL
[2021-10-14 12:44] LABS: Glucose,Whole Blood 113 mg/dL (75-99)
[2021-10-14] MEDS: HYDROcodone/APAP 5-325MG 1 EACH TAB PO PRN ×2 (14:17→21:19)
--- NOTE | 2021-10-14 15:46 | P.PN ---
Subjective Progress Note Date: 10/14/21 CHIEF COMPLAINT: Sigmoid tumor HISTORY OF PRESENT ILLNESS: The patient is a 66-year-old female with complicated surgical history including laparotomy, sigmoid colectomy, repair of left ureter. At bedside, she is being assessed by the ostomy nurse. She reports improvement of her wounds. ROS: No reports of nausea and vomiting. No fevers or chills. No new chest pain. PHYSICAL EXAM: VITAL SIGNS: Reviewed CONSTITUTIONAL: Well developed and in no acute distress. EYES: Conjuctivae without sclera icterus. Extraocular movements grossly intact. HEAD, EARS, NOSE, THROAT: Moist buccal mucosa. Head is atraumatic, normocephalic. Hears conversational speech. No nasal drainage. RESPIRATORY: Non-labored respirations and equal bilateral excursions. CARDIOVASCULAR: Palpable 2+ radial pulses. ABDOMEN: Ostomy review of her ostomy nurse with separation of over a centimeter between 9 to 12 o'clock position. MUSCULOSKELETAL: No gross deformity of the lower extremities noted. No clubbing. No cyanosis. SKIN: Good skin turgor. Well perfused. NEUROLOGIC: Cranial nerves II through XII grossly intact. No focal or lateralizing signs. PSYCH: Appropriate affect. Alert and oriented to person, place and time. : [place] with hematuria. CLINICAL LABS: Reviewed. WBC normal 7.2. Hemoglobin down from 9.1-8.2, anemia ASSESSMENT: 1. Sigmoid tumor 2. Hematuria 3. Anemia 4. Complications of ostomy PLAN: 1. Wound care instructions per ostomy nurse for ostomy separate 2. Continue Mcfraland catheter and management per urology 3. Awaiting pathology from [facility] consultation Objective - Vital Signs Vital signs: Vital Signs Temp 98.1 F 10/14/21 14:47 Pulse 100 10/14/21 14:47 Resp 16 10/14/21 14:47 BP 138/74 10/14/21 14:47 Pulse Ox 99 10/14/21 14:47 Intake & Output 10/13/21 10/14/21 10/14/21 18:59 06:59 18:59 Intake Total 200 100 236 Output Total 800 900 Balance -600 -800 236 Intake: Intake, IV Titration 200 100 Amount Piperacillin-Tazobactam 3 200 100 .375 gm In Sodium Chloride 0.9% 100 ml @ 25 mls/hr IVPB Q8HR [facility] Rx# :[id number] Oral 236 Output: Urine 400 800 Stool 400 Urine/Stool Mix 100 Other: Voiding Method Indwelling Catheter Indwelling Catheter Indwelling Catheter - Labs CBC & Chem 7: 10/14/21 06:29 10/13/21 06:37 Labs: Abnormal Lab Results - Last 24 Hours (Table) 10/13/21 10/13/21 10/14/21 Range/Units 17:06 20:07 06:29 RBC 2.59 L (4.10-5.20) X 10*6/uL Hgb 8.2 L (12.0-15.0) g/dL Hct 26.9 L (37.2-46.3) % MCV 103.9 H (80.0-97.0) fL MCHC 30.5 L (32.0-37.0) g/dL RDW 14.7 H (11.5-14.5) % Plt Count 459 H (140-440) X 10*3/uL MPV 9.2 L (9.5-12.2) fL Immature Gran # 0.07 H (0.00-0.04) X 10*3/uL POC Glucose (mg/dL) 119 H 126 H (75-99) mg/dL 10/14/21 Range/Units 12:42 RBC (4.10-5.20) X 10*6/uL Hgb (12.0-15.0) g/dL Hct (37.2-46.3) % MCV (80.0-97.0) fL MCHC (32.0-37.0) g/dL RDW (11.5-14.5) % Plt Count (140-440) X 10*3/uL MPV (9.5-12.2) fL Immature Gran # (0.00-0.04) X 10*3/uL POC Glucose (mg/dL) 113 H (75-99) mg/dL
[2021-10-14 17:17] LABS: Glucose,Whole Blood 103 mg/dL (75-99)
[2021-10-14] MEDS: ATORVASTATIN 40 MG TAB PO SCH (21:19)
[2021-10-14 21:23] LABS: Glucose,Whole Blood 116 mg/dL (75-99)
--- NOTE | 2021-10-14 23:35 | P.PN ---
Subjective Progress Note Date: 10/13/21 66-year-old female presents to the emergency department with a chief complaint of abdominal pain. Patient states her symptoms started 10 days ago. Describes it as generalized abdominal pain with no radiation. No back pain. She states she had intermittent nausea for the first couple days that has since resolved. No fever, chills, vomiting, or diarrhea. Normal bowel movements with last bowel movement yesterday, nonbloody. Patient has been tolerating oral intake okay however states her appetite has decreased. No burning with urination, increased urinary frequency/urgency, or blood in the urine. No chest pain or shortness of breath. Patient does have history of atrial fibrillation on Eliqui s. No upper respiratory symptoms or recent sick contacts. No previous abdominal surgeries. Patient does admit to tobacco use with [id number] history. She denies family history of aneurysm. CT is significant for a suspected partial large bowel obstruction secondary to eccentric bowel wall thickening of the sigmoid colon which is suspicious for primary malignancy. EKG revealed atrial fibrillation with rapid ventricular response; patient was started on IV Cardizem Patient continues to have abdominal distention and pain; no bowel movements; general surgery on board and planning to repeat abdominal x-ray with tentative plan for partial colectomy tomorrow Patient remains in atrial fibrillation with controlled ventricular response at this time; no anticoagulation therapy for anticipated surgery in next 24-48 hours; echocardiogram reveals normal LV function and no significant valvular abnormalities; cardiology on board and recommending to continue with Lasix 20 mg daily for mild fluid overload; Resume the care of the patient 10/01/2021. Patient awake and alert. She still with abdominal complaint and pain and discomfort with no bowel movement. Surgery team are planning for exploratory laparotomy with possible diverting colostomy and possible sigmoid resection. Cigarette Making Examiner team on the case also for preop evaluation and also for her A. fib. Currently rate controlled on metoprolol and oral Lasix. She is on D5 half-normal saline at 50 mL per hour, Flagyl and Zosyn. Labs look stable. 10/02/2021 Patient with sigmoid mass status post exploratory laparotomy with Sigmoid colectomy with end colostomy, Partial cystectomy, Left salpingectomy, Appendectomy, Repair of left ureterPeriod secondary to left ureteral injury during surgical resection. Patient vomited by urologist and had left ureteral repair. Currently has a Neal catheter was recommendation to stay for 2 weeks. Post operatively patient got intubated. Patient currently remains on mechanical ventilation She remains on Zosyn, Eliquis on hold. Patient is started on Pepcid and subcu heparin.. She received also normal saline boluses 10/03/2021 Today patient in the ICU status post extubation. She is postoperative day #2. She still nothing by mouth, awake but very weak. Her colostomy back in a Place, no bowel movement yet. Also Neal catheter with PATRICE drain with more than 200 of serosanguineous fluid. Her pathology is pending, Eliquis still on hold, patient kept on Flagyl and Zosyn and IV fluids. Patient received 1 L of normal saline for hypertension, also her metoprolol dose lowered to 25 mg. 10/04/2021 Patient clinically is improving gradually, her pain at the surgery site is country of, she is fully awake and oriented, she does not look in distress. Her colostomy tube in the left lower quadrant abdomen with some small amounts light brown stool. Neal catheter in place with yellow urine. A follow-up for stent urologist recommended CT of the abdomen without contrast was showing mild positioning of the double J stent, CT urogram is ordered and is pending, neurology following closely. Other that clinically she is doing generally well, improving slowly. She kept nothing by mouth with surgery team following him closely as well. Patient's can go to the general medical floor today. Continue with Flagyl and Zosyn, D5 half-normal saline at 50 mL/h and metoprolol increased to 25 g 3 times a day today. She is also a small dose of oral Lasix while Eliquis still on hold 10/05/2021 Patient remains nothing by mouth, colostomy with no bowel movement or gas. Neal catheter in place. She remains on D5 half-normal saline at 50 mL per hour She looks tired but no distress. Hemodynamically stable. Labs reviewed with WBC 8.2, creatinine 1.1. CT urogram: Extraluminal secreted IV contrast most pronounced along the left ureter with some also appearing near the distal right ureter on delayed imaging. This is favored to represent a left ureteral injury with layering in the pelvis. Right ureteral injury is not entirely exclude it.A left ureteral stent is seen. urologist on the case 10/06/2021 patient remains clinically same with no significant change, she is tired looking, she still nothing by mouth. Colostomy back still not showing bowel movements today however it has bowel movement yesterday Neal catheter in place. Patient followed closely by urology service Pathology did not show final diagnosis and the specimen was sent to [facility] by pathologist for consultation. Oncology team on the case also. Continue with Zosyn, Flagyl and D5 half-normal saline at 50 mL per hour. 10/07/2021 Patient generally doing well and she is improving gradually and slowly. His morning she was still nothing by mouth but surgery team are planning to start her on diet and liquid diet today. Colostomy back is working and last time and it was last night. Neal catheter in place with some dark colored urine which is expected from her recent surgery and some bleeding. Repeat chest x-ray showing pleural effusion with atelectasis. Pending pathology which is sent then [facility] for further consultation. She remains on Flagyl and Zosyn and D5 half-normal saline at 50. Eliquis on hold 10/08/2021 Patient is seen and evaluated this morning with multiple medical consultations following as patient is status post sigmoid mass status post exploratory laparotomy with Sigmoid colectomy with end colostomy, Partial cystectomy, Left salpingectomy, Appendectomy, Repair of left ureter. Patient being followed by urology as well and currently has a Neal catheter was recommendation to stay for 2 weeks. Patient with some hematuria noted in the neal and hemoglobin is c urrently stable and will resume eliquis with cardiology following and ok per surgery recommendations and will monitor labs closely. Oncology following as well and awaiting second opinion of patho that was sent to [facility]. Patient with continued weakness and working with PT/OT therapy. Magnesium mildly low at 1.7 and will replace per protocol. Patient currently on 2L via [place] with pulmonary following as well. Recommend a dose of IV lasix. Encouraged incentive spirometer use. Patient denies chest pain or worsening shortness of breath. Patient is afebrile. Patient started on diet and tolerating and advancing slowly per surgery recommendations. 10/09/2021 Patient is seen in follow-up this morning with no acute overnight issues noted. Multiple medical consultations including oncology, urology, pulmonary following closely and chest x-ray ordered and pending. Patient is currently on room air and tolerating oxygen saturations above 93% and denies any shortness of breath. Patient denies chest pain and is tolerating diet. Patient is also been seen and evaluated by cardiology recommending resuming anticoagulant which has been done. Patient with noted hematuria in the Neal and has been evaluated by urology and this is noted to be in expected outcome of recent surgery. Patient also with left ureteral stent and will require outpatient follow-up in 6 weeks. Patient is to continue with indwelling Neal catheter and will follow-up with repeat labs. Hemoglobin is stable at 10.1 today and BMP within normal limits. Magnesium is 2.2. Patient encouraged increased activity as tolerated although continues with weakness physical therapy has evaluated the patient recommending subacute rehab and social work following as patient has been accepted to [facility] and requiring insurance authorization. Will discuss with other consultations about treatment plan moving forward with possible discharge to [facility] in 24 hours. 10/10/2021 Patient is seen today with multiple medical consultations following. General surgery also following as patient continues with LUZMA drain although output is minimal. Patient reports to having some leaking noted at the bottom of the surgical site and will be redressing site and evaluating. Patient with noted hematuria and urology following and hemoglobin remained stable and will continue with indwelling Neal catheter. Patient had been off antibiotic therapy and remaining afebrile although with some noted drainage is being started on IV Zosyn and will continue to monitor closely. Patient tolerating diet and stool and gas noted in the ostomy and abdomen less tender today. Chest x-ray yesterday revealed continued moderate right but increased small left pleural effusion with basilar opacification is an adjacent atelectasis with no significant change from previous. Patient reports to feeling some mild shortness of breath today and was placed back on 2 L. Oxygen saturation is 97% on the 2 L. Wean FiO2 as tolerated and encouraged incentive spirometer use at the bedside. Patient extremely weak and working with physical therapy daily and will be going to rehab at [facility] once stabilized and discharged. 10/11/2021 Patient is seen this morning with having some continued drainage noted of the surgical site and also was noted by ostomy nurse that there is a separation of the stoma from the abdominal wall and surgery made aware. Patient preliminary cultures showing gram negative bacilli and has been started on IV zosyn. Patient is continued on 2L via [place] and needs encouragement on the use of the incentive spirometer. Patient continues with weakness and is working with physical therapy daily. Patient planning on rehab on discharge with social work following. Pathology pending. 10/12/2021 Patient is seen today and is reporting that she is weak and tired today. Patient is currently on IV zosyn and finalized cultures on the abdominal surgical site are ecoli with sensitivities to zosyn and will continue with IV abx. Patient is working with physical therapy and has daily. Patient reports to eating her meals and has been getting education on ostomy care. Patient will continue with indwelling neal catheter and closely monitor the urine for worsening hematuria. Hemoglobin is stable at 8.8 and will monitor daily. Patient is afebrile and denies chest pain or shortness of breath. 10/13/2021. Patient is currently sitting in a chair comfortably. Awake alert and oriented x3. Denies any complaints of abdominal pain or nausea vomiting or diarrhea. Patient is blood-tinged urine and is on Neal catheter. Continued on anticoagulation for paroxysmal atrial fibrillation. Laboratory data showed WBC 7.2 hemoglobin 9.1 and platelets 460 Sodium 138 potassium 4.1 chloride 108 bicarb is 28 BUN 16 creatinine 0.57 and magnesium 1.8 Denies any chest pain or shortness of breath. Patient has been continued on antibiotics in the form of Zosyn. Follow-up wound culture report from the surgical site. Review of systems: Constitutional: No reports of fatigue, fever, or chills Cardiovascular: No reports of chest pain or palpitations Respiratory: No reports of worsening shortness of breath or cough GI: No reports of nausea, vomiting, or diarrhea : No reports of dysuria or retention Neurovascular: reports of generalized weakness All medications have been reviewed Objective - Vital Signs Vital signs: Vital Signs Temp 97.6 F 10/13/21 05:00 Pulse 73 10/13/21 05:00 Resp 18 10/13/21 05:00 BP 146/80 10/13/21 05:00 Pulse Ox 100 10/13/21 05:00 Intake & Output 10/12/21 10/13/21 10/13/21 18:59 06:59 18:59 Intake Total 600 500 Output Total 660 1720 Balance -60 -1220 Intake: Intake, IV Titration 100 Amount Piperacillin-Tazobactam 3 100 .375 gm In Sodium Chloride 0.9% 100 ml @ 25 mls/hr IVPB Q8HR [facility] Rx# :[id number] Oral 500 500 Output: Drainage 60 20 Lower Abdomen 60 20 Urine 300 1400 Stool 300 300 Other: Voiding Method Indwelling Catheter Indwelling Catheter # Voids 1 - Exam Physical exam: GENERAL: The patient is alert and oriented x3, not in any acute distress. Well developed, well nourished. pale HEENT: Pupils are round and equally reacting to light. EOMI. No scleral icterus. No conjunctival pallor. Normocephalic, atraumatic. No pharyngeal erythema. No thyromegaly. CARDIOVASCULAR: S1 and S2 present. No murmurs, rubs, or gallops. PULMONARY: diminished breath sounds bilaterally with , no wheezing or crackles, some scattered rhonchi noted. ABDOMEN: Soft, mild generalized tenderness and mild generalized distention, some mild drainage noted from surgical site, normoactive bowel sounds. No palpable organomegaly. Colostomy bag in place, Neal catheter with hematuria noted MUSCULOSKELETAL: No joint swelling or deformity. EXTREMITIES: No cyanosis, clubbing, or pedal edema. NEUROLOGICAL: Gross neurological examination did not reveal any focal deficits. diffuse weakness SKIN: No rashes. no petechiae. - Labs CBC & Chem 7: 10/14/21 06:29 10/13/21 06:37 Labs: Abnormal Lab Results - Last 24 Hours (Table) 10/12/21 10/12/21 10/12/21 Range/Units 12:35 17:15 20:27 RBC (3.80-5.40) m/uL Hgb (11.4-16.0) gm/dL Hct (34.0-46.0) % MCV (80.0-100.0) fL MCHC (31.0-37.0) g/dL Plt Count (150-450) k/uL Lymphocytes # (1.0-4.8) k/uL Chloride (98-107) mmol/L BUN (7-17) mg/dL POC Glucose (mg/dL) 130 H 117 H 136 H (75-99) mg/dL Calcium (8.4-10.2) mg/dL 10/13/21 10/13/21 Range/Units 06:37 06:37 RBC 2.85 L (3.80-5.40) m/uL Hgb 9.1 L (11.4-16.0) gm/dL Hct 30.2 L (34.0-46.0) % MCV 106.2 H (80.0-100.0) fL MCHC 30.2 L (31.0-37.0) g/dL Plt Count 460 H (150-450) k/uL Lymphocytes # 0.9 L (1.0-4.8) k/uL Chloride 108 H (98-107) mmol/L BUN 6 L (7-17) mg/dL POC Glucose (mg/dL) (75-99) mg/dL Calcium 7.6 L (8.4-10.2) mg/dL Microbiology - Last 24 Hours (Table) 10/10/21 12:35 Gram Stain - Final Abdomen Wound Culture - Final Escherichia coli Assessment and Plan Assessment: Assessment: -Sigmoid wall thickening suspicious for sigmoid mass with partial colon obstruction. status post exploratory laparotomy with Sigmoid colectomy with end colostomy, Partial cystectomy, Left salpingectomy, Appendectomy, Repair of left ureter secondary to left ureteral injury during surgical resection -A. fib with RVR, currently rate controlled -surgical site wound infection finalized with ecoli - Hematuria -Hypertension -Hyperlipidemia -History of COPD, not in acute exacerbation -hypomagnesemia, improved -GI prophylaxis -DVT prophylaxis -Full code Plan: This is a pleasant 66 years old female. status post bowel surgery for her possible large sigmoid colon mass. Also with A. fib. that is currently rate controlled. Cardiology following as needed and has been resumed on eliquis Encouraged Incentive spirometer at the bedside and encourage the patient to continue using at least 10 times every hour while awake, wean FI02 as tolerated, currently on 2L via [place] Multiple medical consultations following including Pulmonary, Surgery, urology, and cardiology team following. Oncology following as well and Pathology sent to [facility] and awaiting patho report. Pathologic report pending and oncology arranging for outpatient follow-up PT/OT: Following, patient is agreeable to ECF and has been accepted at [facility] and authorization will be needed and will follow-up with other consultations about treatment plan Wound culture finalized showing ecoli of the abdominal surgical site and will continue IV Zosyn Will repeat am labs and replace electrolytes per protocol. Urology following and patient will continue with indwelling neal catheter with outpatient follow up in 2 weeks. Hematuria noted and hemoglobin is stable. 9.1 today Have resumed eliquis per surgery and will monitor closely for drop in hemoglobin or any worsening hematuria. Due to multiple complex medical issues, prognosis is guarded Time with Patient: Greater than 30
--- NOTE | 2021-10-14 23:37 | P.PN ---
Subjective Progress Note Date: 10/14/21 66-year-old female presents to the emergency department with a chief complaint of abdominal pain. Patient states her symptoms started 10 days ago. Describes it as generalized abdominal pain with no radiation. No back pain. She states she had intermittent nausea for the first couple days that has since resolved. No fever, chills, vomiting, or diarrhea. Normal bowel movements with last bowel movement yesterday, nonbloody. Patient has been tolerating oral intake okay however states her appetite has decreased. No burning with urination, increased urinary frequency/urgency, or blood in the urine. No chest pain or shortness of breath. Patient does have history of atrial fibrillation on Eliqui s. No upper respiratory symptoms or recent sick contacts. No previous abdominal surgeries. Patient does admit to tobacco use with [id number] history. She denies family history of aneurysm. CT is significant for a suspected partial large bowel obstruction secondary to eccentric bowel wall thickening of the sigmoid colon which is suspicious for primary malignancy. EKG revealed atrial fibrillation with rapid ventricular response; patient was started on IV Cardizem Patient continues to have abdominal distention and pain; no bowel movements; general surgery on board and planning to repeat abdominal x-ray with tentative plan for partial colectomy tomorrow Patient remains in atrial fibrillation with controlled ventricular response at this time; no anticoagulation therapy for anticipated surgery in next 24-48 hours; echocardiogram reveals normal LV function and no significant valvular abnormalities; cardiology on board and recommending to continue with Lasix 20 mg daily for mild fluid overload; Resume the care of the patient 10/01/2021. Patient awake and alert. She still with abdominal complaint and pain and discomfort with no bowel movement. Surgery team are planning for exploratory laparotomy with possible diverting colostomy and possible sigmoid resection. Form Maker team on the case also for preop evaluation and also for her A. fib. Currently rate controlled on metoprolol and oral Lasix. She is on D5 half-normal saline at 50 mL per hour, Flagyl and Zosyn. Labs look stable. 10/02/2021 Patient with sigmoid mass status post exploratory laparotomy with Sigmoid colectomy with end colostomy, Partial cystectomy, Left salpingectomy, Appendectomy, Repair of left ureterPeriod secondary to left ureteral injury during surgical resection. Patient vomited by urologist and had left ureteral repair. Currently has a Neal catheter was recommendation to stay for 2 weeks. Post operatively patient got intubated. Patient currently remains on mechanical ventilation She remains on Zosyn, Eliquis on hold. Patient is started on Pepcid and subcu heparin.. She received also normal saline boluses 10/03/2021 Today patient in the ICU status post extubation. She is postoperative day #2. She still nothing by mouth, awake but very weak. Her colostomy back in a Place, no bowel movement yet. Also Neal catheter with PATRICE drain with more than 200 of serosanguineous fluid. Her pathology is pending, Eliquis still on hold, patient kept on Flagyl and Zosyn and IV fluids. Patient received 1 L of normal saline for hypertension, also her metoprolol dose lowered to 25 mg. 10/04/2021 Patient clinically is improving gradually, her pain at the surgery site is country of, she is fully awake and oriented, she does not look in distress. Her colostomy tube in the left lower quadrant abdomen with some small amounts light brown stool. Neal catheter in place with yellow urine. A follow-up for stent urologist recommended CT of the abdomen without contrast was showing mild positioning of the double J stent, CT urogram is ordered and is pending, neurology following closely. Other that clinically she is doing generally well, improving slowly. She kept nothing by mouth with surgery team following him closely as well. Patient's can go to the general medical floor today. Continue with Flagyl and Zosyn, D5 half-normal saline at 50 mL/h and metoprolol increased to 25 g 3 times a day today. She is also a small dose of oral Lasix while Eliquis still on hold 10/05/2021 Patient remains nothing by mouth, colostomy with no bowel movement or gas. Neal catheter in place. She remains on D5 half-normal saline at 50 mL per hour She looks tired but no distress. Hemodynamically stable. Labs reviewed with WBC 8.2, creatinine 1.1. CT urogram: Extraluminal secreted IV contrast most pronounced along the left ureter with some also appearing near the distal right ureter on delayed imaging. This is favored to represent a left ureteral injury with layering in the pelvis. Right ureteral injury is not entirely exclude it.A left ureteral stent is seen. urologist on the case 10/06/2021 patient remains clinically same with no significant change, she is tired looking, she still nothing by mouth. Colostomy back still not showing bowel movements today however it has bowel movement yesterday Neal catheter in place. Patient followed closely by urology service Pathology did not show final diagnosis and the specimen was sent to [facility] by pathologist for consultation. Oncology team on the case also. Continue with Zosyn, Flagyl and D5 half-normal saline at 50 mL per hour. 10/07/2021 Patient generally doing well and she is improving gradually and slowly. His morning she was still nothing by mouth but surgery team are planning to start her on diet and liquid diet today. Colostomy back is working and last time and it was last night. Neal catheter in place with some dark colored urine which is expected from her recent surgery and some bleeding. Repeat chest x-ray showing pleural effusion with atelectasis. Pending pathology which is sent then [facility] for further consultation. She remains on Flagyl and Zosyn and D5 half-normal saline at 50. Eliquis on hold 10/08/2021 Patient is seen and evaluated this morning with multiple medical consultations following as patient is status post sigmoid mass status post exploratory laparotomy with Sigmoid colectomy with end colostomy, Partial cystectomy, Left salpingectomy, Appendectomy, Repair of left ureter. Patient being followed by urology as well and currently has a Neal catheter was recommendation to stay for 2 weeks. Patient with some hematuria noted in the neal and hemoglobin is c urrently stable and will resume eliquis with cardiology following and ok per surgery recommendations and will monitor labs closely. Oncology following as well and awaiting second opinion of patho that was sent to [facility]. Patient with continued weakness and working with PT/OT therapy. Magnesium mildly low at 1.7 and will replace per protocol. Patient currently on 2L via [place] with pulmonary following as well. Recommend a dose of IV lasix. Encouraged incentive spirometer use. Patient denies chest pain or worsening shortness of breath. Patient is afebrile. Patient started on diet and tolerating and advancing slowly per surgery recommendations. 10/09/2021 Patient is seen in follow-up this morning with no acute overnight issues noted. Multiple medical consultations including oncology, urology, pulmonary following closely and chest x-ray ordered and pending. Patient is currently on room air and tolerating oxygen saturations above 93% and denies any shortness of breath. Patient denies chest pain and is tolerating diet. Patient is also been seen and evaluated by cardiology recommending resuming anticoagulant which has been done. Patient with noted hematuria in the Neal and has been evaluated by urology and this is noted to be in expected outcome of recent surgery. Patient also with left ureteral stent and will require outpatient follow-up in 6 weeks. Patient is to continue with indwelling Neal catheter and will follow-up with repeat labs. Hemoglobin is stable at 10.1 today and BMP within normal limits. Magnesium is 2.2. Patient encouraged increased activity as tolerated although continues with weakness physical therapy has evaluated the patient recommending subacute rehab and social work following as patient has been accepted to [facility] and requiring insurance authorization. Will discuss with other consultations about treatment plan moving forward with possible discharge to [facility] in 24 hours. 10/10/2021 Patient is seen today with multiple medical consultations following. General surgery also following as patient continues with LUZMA drain although output is minimal. Patient reports to having some leaking noted at the bottom of the surgical site and will be redressing site and evaluating. Patient with noted hematuria and urology following and hemoglobin remained stable and will continue with indwelling Neal catheter. Patient had been off antibiotic therapy and remaining afebrile although with some noted drainage is being started on IV Zosyn and will continue to monitor closely. Patient tolerating diet and stool and gas noted in the ostomy and abdomen less tender today. Chest x-ray yesterday revealed continued moderate right but increased small left pleural effusion with basilar opacification is an adjacent atelectasis with no significant change from previous. Patient reports to feeling some mild shortness of breath today and was placed back on 2 L. Oxygen saturation is 97% on the 2 L. Wean FiO2 as tolerated and encouraged incentive spirometer use at the bedside. Patient extremely weak and working with physical therapy daily and will be going to rehab at [facility] once stabilized and discharged. 10/11/2021 Patient is seen this morning with having some continued drainage noted of the surgical site and also was noted by ostomy nurse that there is a separation of the stoma from the abdominal wall and surgery made aware. Patient preliminary cultures showing gram negative bacilli and has been started on IV zosyn. Patient is continued on 2L via [place] and needs encouragement on the use of the incentive spirometer. Patient continues with weakness and is working with physical therapy daily. Patient planning on rehab on discharge with social work following. Pathology pending. 10/12/2021 Patient is seen today and is reporting that she is weak and tired today. Patient is currently on IV zosyn and finalized cultures on the abdominal surgical site are ecoli with sensitivities to zosyn and will continue with IV abx. Patient is working with physical therapy and has daily. Patient reports to eating her meals and has been getting education on ostomy care. Patient will continue with indwelling neal catheter and closely monitor the urine for worsening hematuria. Hemoglobin is stable at 8.8 and will monitor daily. Patient is afebrile and denies chest pain or shortness of breath. 10/13/2021. Patient is currently sitting in a chair comfortably. Awake alert and oriented x3. Denies any complaints of abdominal pain or nausea vomiting or diarrhea. Patient is blood-tinged urine and is on Neal catheter. Continued on anticoagulation for paroxysmal atrial fibrillation. Laboratory data showed WBC 7.2 hemoglobin 9.1 and platelets 460 Sodium 138 potassium 4.1 chloride 108 bicarb is 28 BUN 16 creatinine 0.57 and magnesium 1.8 Denies any chest pain or shortness of breath. Patient has been continued on antibiotics in the form of Zosyn. Follow-up wound culture report from the surgical site. 10/14/2021. Patient is currently sitting in the chair comfortably. Complains of dizziness when she gets out of the bed this morning. Hemoglobin did drop to 8.1 today. Patient still having blood-tinged urine and is also on Neal catheter. Patient is status post exploratory laparotomy status post colostomy. Ureteroureterostomy and ureter repair. No nausea or vomiting abdominal pain or diarrhea. No cough or sputum production. No chest pain or shortness of breath. Laboratory showed WBC 7.2 hemoglobin 8.2 and platelets 459. Blood sugar is controlled. Urology and general surgery is on board. Review of systems: Constitutional: No reports of fatigue, fever, or chills Cardiovascular: No reports of chest pain or palpitations Respiratory: No reports of worsening shortness of breath or cough GI: No reports of nausea, vomiting, or diarrhea : No reports of dysuria or retention Neurovascular: reports of generalized weakness All medications have been reviewed Objective - Vital Signs Vital signs: Vital Signs Temp 98.7 F 05/22/22 21:00 Pulse 85 10/14/21 21:00 Resp 18 10/14/21 21:00 BP 132/72 10/14/21 21:00 Pulse Ox 99 10/14/21 21:00 Intake & Output 10/14/21 10/14/21 10/15/21 06:59 18:59 06:59 Intake Total 100 554 Output Total 900 Balance -800 554 Intake: Intake, IV Titration 100 200 Amount Piperacillin-Tazobactam 3 100 200 .375 gm In Sodium Chloride 0.9% 100 ml @ 25 mls/hr IVPB Q8HR [facility] Rx# :[id number] Oral 354 Output: Urine 800 Urine/Stool Mix 100 Other: Voiding Method Indwelling Catheter Indwelling Catheter Indwelling Catheter - Exam Physical exam: GENERAL: The patient is alert and oriented x3, not in any acute distress. Well developed, well nourished. pale HEENT: Pupils are round and equally reacting to light. EOMI. No scleral icterus. No conjunctival pallor. Normocephalic, atraumatic. No pharyngeal erythema. No thyromegaly. CARDIOVASCULAR: S1 and S2 present. No murmurs, rubs, or gallops. PULMONARY: diminished breath sounds bilaterally with , no wheezing or crackles, some scattered rhonchi noted. ABDOMEN: Soft, mild generalized tenderness and mild generalized distention, some mild drainage noted from surgical site, normoactive bowel sounds. No palpable organomegaly. Colostomy bag in place, Neal catheter with hematuria noted MUSCULOSKELETAL: No joint swelling or deformity. EXTREMITIES: No cyanosis, clubbing, or pedal edema. NEUROLOGICAL: Gross neurological examination did not reveal any focal deficits. diffuse weakness SKIN: No rashes. no petechiae. - Labs CBC & Chem 7: 10/14/21 06:29 10/13/21 06:37 Labs: Abnormal Lab Results - Last 24 Hours (Table) 10/14/21 10/14/21 10/14/21 Range/Units 06:29 12:42 17:15 RBC 2.59 L (4.10-5.20) X 10*6/uL Hgb 8.2 L (12.0-15.0) g/dL Hct 26.9 L (37.2-46.3) % MCV 103.9 H (80.0-97.0) fL MCHC 30.5 L (32.0-37.0) g/dL RDW 14.7 H (11.5-14.5) % Plt Count 459 H (140-440) X 10*3/uL MPV 9.2 L (9.5-12.2) fL Immature Gran # 0.07 H (0.00-0.04) X 10*3/uL POC Glucose (mg/dL) 113 H 103 H (75-99) mg/dL 10/14/21 Range/Units 21:13 RBC (4.10-5.20) X 10*6/uL Hgb (12.0-15.0) g/dL Hct (37.2-46.3) % MCV (80.0-97.0) fL MCHC (32.0-37.0) g/dL RDW (11.5-14.5) % Plt Count (140-440) X 10*3/uL MPV (9.5-12.2) fL Immature Gran # (0.00-0.04) X 10*3/uL POC Glucose (mg/dL) 116 H (75-99) mg/dL Assessment and Plan Assessment: Assessment: -Sigmoid wall thickening suspicious for sigmoid mass with partial colon obstruction. status post exploratory laparotomy with Sigmoid colectomy with end colostomy, Partial cystectomy, Left salpingectomy, Appendectomy, Repair of left ureter secondary to left ureteral injury during surgical resection -A. fib with RVR, currently rate controlled -surgical site wound infection finalized with ecoli - Hematuria -Hypertension -Hyperlipidemia -History of COPD, not in acute exacerbation -hypomagnesemia, improved -GI prophylaxis -DVT prophylaxis -Full code Plan: This is a pleasant 66 years old female. status post bowel surgery for her possible large sigmoid colon mass. Also with A. fib. that is currently rate controlled. Cardiology following as needed and has been resumed on eliquis Encouraged Incentive spirometer at the bedside and encourage the patient to continue using at least 10 times every hour while awake, wean FI02 as tolerated, currently on 2L via [place] Multiple medical consultations following including Pulmonary, Surgery, urology, and cardiology team following. Oncology following as well and Pathology sent to [facility] and awaiting patho report. Pathologic report pending and oncology arranging for outpatient follow-up PT/OT: Following, patient is agreeable to ECF and has been accepted at [facility] and authorization will be needed and will follow-up with other consultations about treatment plan Wound culture finalized showing ecoli of the abdominal surgical site and will continue IV Zosyn Will repeat am labs and replace electrolytes per protocol. Urology following and patient will continue with indwelling neal catheter with outpatient follow up in 2 weeks. Patient still having hematuria and hemoglobin dropped to 8.2 today. Eliquis will be on hold. Follow-up H&H. f/u closely for drop in hemoglobin or any worsening hematuria. Due to multiple complex medical issues, prognosis is guarded Time with Patient: Greater than 30
[2021-10-15 07:14] LABS: Glucose,Whole Blood 87 mg/dL (75-99)
[2021-10-15] MEDS: INSULIN ASPART (NovoLOG) 100 UNIT/ML VIAL SQ SCH ×4 (07:23→20:13)
[2021-10-15 08:17] LABS: Basophils % (A) 1 %; Eosinophils # (A) 0.3 k/uL (0-0.7); Eosinophils % (A) 4 %; HCT 31.7 % (34.0-46.0); HGB 9.6 gm/dL (11.4-16.0); Hypochromasia Moderate; Lymphocytes # (A) 0.9 k/uL (1.0-4.8); Lymphocytes % (A) 14 %; MCH 32.1 pg (25.0-35.0); MCHC 30.1 g/dL (31.0-37.0); MCV 106.4 fL (80.0-100.0); Macrocytosis Moderate; Monocytes # (A) 0.4 k/uL (0-1.0); Monocytes % (A) 6 %; Neutrophils # (A) 4.9 k/uL (1.3-7.7); Neutrophils % (A) 74 %; Platelet Count 490 k/uL (150-450); RBC 2.98 m/uL (3.80-5.40); RDW 13.6 % (11.5-15.5); WBC 6.6 k/uL (3.8-10.6)
[2021-10-15] MEDS: PIPERACILLIN-TAZOBACTAM 3.375 GM in SODIUM CHLORIDE 0.9% 100 ML IVPB SCH ×2 (08:40→16:36)
[2021-10-15] MEDS: FAMOTIDINE 20 MG TAB PO SCH ×2 (08:40→21:02)
[2021-10-15] MEDS: MAGNESIUM OXIDE 400 MG TAB PO SCH (08:41)
[2021-10-15] MEDS: methocarbamoL 750 MG TAB PO SCH ×3 (08:41→21:01)
[2021-10-15] MEDS: METOPROLOL TARTRATE 25 MG TAB PO SCH ×3 (08:41→21:02)
[2021-10-15] MEDS: DIGOXIN 125 MCG TAB PO SCH (08:41)
[2021-10-15] MEDS: HYDROcodone/APAP 5-325MG 1 EACH TAB PO PRN ×2 (08:49→21:02)
[2021-10-15 11:24] LABS: Glucose,Whole Blood 120 mg/dL (75-99)
--- NOTE | 2021-10-15 12:38 | FL ---
Cystogram HISTORY: Hematuria, postop Patient's indwelling Mcfarland catheter was filled in a retrograde fashion with 200 cc of Cystografin. Sp ot images obtained. Images were obtained during bladder filling. Exam was discontinued following gaby ent's inability to retain urine despite indwelling Mcfarland catheter. 33 seconds fluoroscopy time. 8 images obtained. Director Of Field Coordination film shows a left double-J stent present. Surgical sahil are noted. Vascular calcifications a re identified. Following contrast administration no extravasation is identified. Postvoid image shows late contrast extrinsic to the patient. IMPRESSION: There are some limitations to urinary bladder filling. No evident bladder leak.
--- NOTE | 2021-10-15 13:31 | P.PN ---
Subjective Progress Note Date: 10/15/21 CHIEF COMPLAINT: Sigmoid colon tumor HISTORY OF PRESENT ILLNESS: Patient is status post exploratory laparotomy, sigmoid colectomy with end colostomy, partial cystectomy, left salpingectomy, appendectomy and repair of left ureter on 10/01/21. Patient is sitting up at bedside chair. She reports her pain is controlled. Denies any nausea or vomiting. Her ostomy is functioning. Afebrile WBC 6.6 hemoglobin 9.6 pounds 490 incision culture grew E. coli. . Patient had cystogram completed and follow-up urology. No evidence of laterally noted. Patient still has hematuria. Eliquis was stopped. PHYSICAL EXAM: VITAL SIGNS: Reviewed. GENERAL: Well-developed in no acute distress. HEENT: No sclera icterus. Extraocular movements grossly intact. Moist buccal mucosa. Head is atraumatic, normocephalic. ABDOMEN: Soft. Mild tenderness at incision between ostomy in incision. Ostomy functioning. Abdominal incision packed with aquacel silver packing. Sanguinous brownish discharge noted on the surgical dressing. NEUROLOGIC: Alert and oriented. Cranial nerves II through XII grossly intact. ASSESSMENT: 1. 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 Infection at abdominal incision site PLAN: -Continue local wound care to abdominal incision and ostomy -Continue Zosyn -Continue low fiber Diet -Continue Mcfarland catheter as instructed by urology -Encourage patient to ambulate and increase activity -Encourage patient to use incentive spirometer [employer]ician [employer] Counsel[employer] note has been reviewed by physician. Signing provider agrees with the documented findings, assessment, and plan of care. Objective - Vital Signs Vital signs: Vital Signs Temp 97.3 F L 10/15/21 11:13 Pulse 91 10/15/21 11:13 Resp 18 10/15/21 11:13 BP 139/67 10/15/21 11:13 Pulse Ox 99 10/15/21 11:13 FiO2 40 10/03/21 08:15 Intake & Output 10/14/21 10/15/21 10/15/21 18:59 06:59 18:59 Intake Total 554 350 Output Total 2000 Balance 554 -1650 Intake: Intake, IV Titration 200 Amount Piperacillin-Tazobactam 3 200 .375 gm In Sodium Chloride 0.9% 100 ml @ 25 mls/hr IVPB Q8HR [facility] Rx# :[id number] Oral 354 350 Output: Urine 2000 Other: Voiding Method Indwelling Catheter Indwelling Catheter - Labs CBC & Chem 7: 10/15/21 08:06 10/13/21 06:37 Labs: Abnormal Lab Results - Last 24 Hours (Table) 10/14/21 10/14/21 10/15/21 Range/Units 17:15 21:13 08:06 RBC 2.98 L (3.80-5.40) m/uL Hgb 9.6 L (11.4-16.0) gm/dL Hct 31.7 L (34.0-46.0) % MCV 106.4 H (80.0-100.0) fL MCHC 30.1 L (31.0-37.0) g/dL Plt Count 490 H (150-450) k/uL Lymphocytes # 0.9 L (1.0-4.8) k/uL POC Glucose (mg/dL) 103 H 116 H (75-99) mg/dL 10/15/21 Range/Units 11:16 RBC (3.80-5.40) m/uL Hgb (11.4-16.0) gm/dL Hct (34.0-46.0) % MCV (80.0-100.0) fL MCHC (31.0-37.0) g/dL Plt Count (150-450) k/uL Lymphocytes # (1.0-4.8) k/uL POC Glucose (mg/dL) 120 H (75-99) mg/dL
[2021-10-15 17:10] LABS: Glucose,Whole Blood 105 mg/dL (75-99)
[2021-10-15 20:12] LABS: Glucose,Whole Blood 109 mg/dL (75-99)
[2021-10-15] MEDS: ATORVASTATIN 40 MG TAB PO SCH (21:01)
[2021-10-16] MEDS: PIPERACILLIN-TAZOBACTAM 3.375 GM in SODIUM CHLORIDE 0.9% 100 ML IVPB SCH ×4 (00:18→23:58)
--- NOTE | 2021-10-16 00:20 | P.PN ---
Subjective Progress Note Date: 10/15/21 66-year-old female presents to the emergency department with a chief complaint of abdominal pain. Patient states her symptoms started 10 days ago. Describes it as generalized abdominal pain with no radiation. No back pain. She states she had intermittent nausea for the first couple days that has since resolved. No fever, chills, vomiting, or diarrhea. Normal bowel movements with last bowel movement yesterday, nonbloody. Patient has been tolerating oral intake okay however states her appetite has decreased. No burning with urination, increased urinary frequency/urgency, or blood in the urine. No chest pain or shortness of breath. Patient does have history of atrial fibrillation on Libby ling. No upper respiratory symptoms or recent sick contacts. No previous abdominal surgeries. Patient does admit to tobacco use with [id number] history. She denies family history of aneurysm. CT is significant for a suspected partial large bowel obstruction secondary to eccentric bowel wall thickening of the sigmoid colon which is suspicious for primary malignancy. EKG revealed atrial fibrillation with rapid ventricular response; patient was started on IV Cardizem Patient continues to have abdominal distention and pain; no bowel movements; general surgery on board and planning to repeat abdominal x-ray with tentative plan for partial colectomy tomorrow Patient remains in atrial fibrillation with controlled ventricular response at this time; no anticoagulation therapy for anticipated surgery in next 24-48 hours; echocardiogram reveals normal LV function and no significant valvular abnormalities; cardiology on board and recommending to continue with Lasix 20 mg daily for mild fluid overload; Resume the care of the patient 10/01/2021. Patient awake and alert. She still with abdominal complaint and pain and discomfort with no bowel movement. Surgery team are planning for exploratory laparotomy with possible diverting colostomy and possible sigmoid resection. Pharmacy Technician Instructor team on the case also for preop evaluation and also for her A. fib. Currently rate controlled on metoprolol and oral Lasix. She is on D5 half-normal saline at 50 mL per hour, Flagyl and Zosyn. Labs look stable. 10/02/2021 Patient with sigmoid mass status post exploratory laparotomy with Sigmoid colectomy with end colostomy, Partial cystectomy, Left salpingectomy, Appendectomy, Repair of left ureterPeriod secondary to left ureteral injury during surgical resection. Patient vomited by urologist and had left ureteral repair. Currently has a Neal catheter was recommendation to stay for 2 weeks. Post operatively patient got intubated. Patient currently remains on mechanical ventilation She remains on Zosyn, Eliquis on hold. Patient is started on Pepcid and subcu heparin.. She received also normal saline boluses 10/03/2021 Today patient in the ICU status post extubation. She is postoperative day #2. She still nothing by mouth, awake but very weak. Her colostomy back in a Place, no bowel movement yet. Also Neal catheter with PATRICE drain with more than 200 of serosanguineous fluid. Her pathology is pending, Eliquis still on hold, patient kept on Flagyl and Zos yn and IV fluids. Patient received 1 L of normal saline for hypertension, also her metoprolol dose lowered to 25 mg. 10/04/2021 Patient clinically is improving gradually, her pain at the surgery site is country of, she is fully awake and oriented, she does not look in distress. Her colostomy tube in the left lower quadrant abdomen with some small amounts light brown stool. Neal catheter in place with yellow urine. A follow-up for stent urologist recommended CT of the abdomen without contrast was showing mild positioning of the double J stent, CT urogram is ordered and is pending, neurology following closely. Other that clinically she is doing generally well, improving slowly. She kept nothing by mouth with surgery team following him closely as well. Patient's can go to the general medical floor today. Continue with Flagyl and Zosyn, D5 half-normal saline at 50 mL/h and metoprolol increased to 25 g 3 times a day today. She is also a small dose of oral Lasix while Eliquis still on hold 10/05/2021 Patient remains nothing by mouth, colostomy with no bowel movement or gas. Neal catheter in place. She remains on D5 half-normal saline at 50 mL per hour She looks tired but no distress. Hemodynamically stable. Labs reviewed with WBC 8.2, creatinine 1.1. CT urogram: Extraluminal secreted IV contrast most pronounced along the left ureter with some also appearing near the distal right ureter on delayed imaging. This is favored to represent a left ureteral injury with layering in the pelvis. Right ureteral injury is not entirely exclude it.A left ureteral stent is seen. urologist on the case 10/06/2021 patient remains clinically same with no significant change, she is tired looking, she still nothing by mouth. Colostomy back still not showing bowel movements today however it has bowel movement yesterday Neal catheter in place. Patient followed closely by urology service Pathology did not show final diagnosis and the specimen was sent to [facility] by pathologist for consultation. Oncology team on the case also. Continue with Zosyn, Flagyl and D5 half-normal saline at 50 mL per hour. 10/07/2021 Patient generally doing well and she is improving gradually and slowly. His morning she was still nothing by mouth but surgery team are planning to start her on diet and liquid diet today. Colostomy back is working and last time and it was last night. Neal catheter in place with some dark colored urine which is expected from her recent surgery and some bleeding. Repeat chest x-ray showing pleural effusion with atelectasis. Pending pathology which is sent then [facility] for further consultation. She remains on Flagyl and Zosyn and D5 half-normal saline at 50. Eliquis on hold 10/08/2021 Patient is seen and evaluated this morning with multiple medical consultations following as patient is status post sigmoid mass status post exploratory laparotomy with Sigmoid colectomy with end colostomy, Partial cystectomy, Left salpingectomy, Appendectomy, Repair of left ureter. Patient being followed by urology as well and currently has a Neal catheter was recommendation to stay for 2 weeks. Patient with some hematuria noted in the neal and hemoglobin is currently stable and will resume eliquis with cardiology following and ok per surgery recommendations and will monitor labs closely. Oncology following as well and awaiting second opinion of patho that was sent to [facility]. Patient with continued weakness and working with PT/OT therapy. Magnesium mildly low at 1.7 and will replace per protocol. Patient currently on 2L via NC with pulmonary following as well. Recommend a dose of IV lasix. Encouraged incentive spirometer use. Patient denies chest pain or worsening shortness of breath. Patient is afebrile. Patient started on diet and tolerating and advancing slowly per surgery recommendations. 10/09/2021 Patient is seen in follow-up this morning with no acute overnight issues noted. Multiple medical consultations including oncology, urology, pulmonary following closely and chest x-ray ordered and pending. Patient is currently on room air and tolerating oxygen saturations above 93% and denies any shortness of breath. Patient denies chest pain and is tolerating diet. Patient is also been seen and evaluated by cardiology recommending resuming anticoagulant which has been done. Patient with noted hematuria in the Neal and has been evaluated by urology and this is noted to be in expected outcome of recent surgery. Patient also with left ureteral stent and will require outpatient follow-up in 6 weeks. Patient is to continue with indwelling Neal catheter and will follow-up with repeat labs. Hemoglobin is stable at 10.1 today and BMP within normal limits. Magnesium is 2.2. Patient encouraged increased activity as tolerated although continues with weakness physical therapy has evaluated the patient recommending subacute rehab and social work following as patient has been accepted to [facility] and requiring insurance authorization. Will discuss with other consultations about treatment plan moving forward with possible discharge to [facility] in 24 hours. 10/10/2021 Patient is seen today with multiple medical consultations following. General surgery also following as patient continues with LUZMA drain although output is minimal. Patient reports to having some leaking noted at the bottom of the surg ical site and will be redressing site and evaluating. Patient with noted hematuria and urology following and hemoglobin remained stable and will continue with indwelling Neal catheter. Patient had been off antibiotic therapy and remaining afebrile although with some noted drainage is being started on IV Zosyn and will continue to monitor closely. Patient tolerating diet and stool and gas noted in the ostomy and abdomen less tender today. Chest x-ray yesterday revealed continued moderate right but increased small left pleural effusion with basilar opacification is an adjacent atelectasis with no significant change from previous. Patient reports to feeling some mild shortness of breath today and was placed back on 2 L. Oxygen saturation is 97% on the 2 L. Wean FiO2 as tolerated and encouraged incentive spirometer use at the bedside. Patient extremely weak and working with physical therapy daily and will be going to rehab at [facility] once stabilized and discharged. 10/11/2021 Patient is seen this morning with having some continued drainage noted of the surgical site and also was noted by ostomy nurse that there is a separation of the stoma from the abdominal wall and surgery made aware. Patient preliminary cultures showing gram negative bacilli and has been started on IV zosyn. Patient is continued on 2L via NC and needs encouragement on the use of the incentive spirometer. Patient continues with weakness and is working with physical therapy daily. Patient planning on rehab on discharge with social work following. Pathology pending. 10/12/2021 Patient is seen today and is reporting that she is weak and tired today. Patient is currently on IV zosyn and finalized cultures on the abdominal surgical site are ecoli with sensitivities to zosyn and will continue with IV abx. Patient is working with physical therapy and has daily. Patient reports to eating her meals and has been getting education on ostomy care. Patient will continue with indwelling neal catheter and closely monitor the urine for worsening hematuria. Hemoglobin is stable at 8.8 and will monitor daily. Patient is afebrile and denies chest pain or shortness of breath. 10/13/2021. Patient is currently sitting in a chair comfortably. Awake alert and oriented x3. Denies any complaints of abdominal pain or nausea vomiting or diarrhea. Patient is blood-tinged urine and is on Neal catheter. Continued on anticoagulation for paroxysmal atrial fibrillation. Laboratory data showed WBC 7.2 hemoglobin 9.1 and platelets 460 Sodium 138 potassium 4.1 chloride 108 bicarb is 28 BUN 16 creatinine 0.57 and magnesium 1.8 Denies any chest pain or shortness of breath. Patient has been continued on antibiotics in the form of Zosyn. Follow-up wound culture report from the surgical site. 10/14/2021. Patient is currently sitting in the chair comfortably. Complains of dizziness when she gets out of the bed this morning. Hemoglobin did drop to 8.1 today. Patient still having blood-tinged urine and is also on Neal catheter. Patient is status post exploratory laparotomy status post colostomy. Ur eteroureterostomy and ureter repair. No nausea or vomiting abdominal pain or diarrhea. No cough or sputum production. No chest pain or shortness of breath. Laboratory showed WBC 7.2 hemoglobin 8.2 and platelets 459. Blood sugar is controlled. Urology and general surgery is on board. 10/15/2021 Patient is seen this morning scheduled to undergo cystogram with urology following closely. Patient continues with hematuria noted and subsequently Eliquis has been placed on hold. Hemoglobin is stable at 9.6 patient's wound culture did finalized with E. coli and patient is maintained on IV Zosyn and will continue. General surgery following an diet has been advanced and patient is tolerating. Patient continues to work with physical therapy daily and continues to be weak and social work following for possible ECF. Patient denies chest pain, shortness of breath, or palpitations. Patient is afebrile. No reports of nausea or vomiting and tolerating diet. Review of systems: Constitutional: No reports of fatigue, fever, or chills Cardiovascular: No reports of chest pain or palpitations Respiratory: No reports of worsening shortness of breath or cough GI: No reports of nausea, vomiting, or diarrhea : No reports of dysuria or retention Neurovascular: reports of generalized weakness All medications have been reviewed Active Medications Hydrocodone Bitart/Acetaminophen (Hydrocodone/Apap 5-325mg 1 Each Tab) 1 each PO Q4HR PRN PRN Reason: Pain Last Admin: 10/15/21 08:49 Dose: 1 each Albuterol/Ipratropium (Ipratropium-Albuterol 3 Ml Neb) 3 ml INHALATION RT-QID PRN PRN Reason: Shortness Of Breath Or Wheezing Last Admin: 09/29/21 10:51 Dose: 3 ml Atorvastatin Calcium (Atorvastatin 40 Mg Tab) 40 mg PO HS [facility] Last Admin: 10/14/21 21:19 Dose: 40 mg Benzocaine/Menthol (Benzocaine/Menthol Lozeng 1 Each Lozenge) 1 each MUCOUS MEM Q1HR PRN PRN Reason: Sore Throat Digoxin (Digoxin 125 Mcg Tab) 125 mcg PO DAILY [facility] Last Admin: 10/15/21 08:41 Dose: 125 mcg Famotidine (Famotidine 20 Mg Tab) 20 mg PO BID [facility] Last Admin: 10/15/21 08:40 Dose: 20 mg Hydromorphone HCl (Hydromorphone 1 Mg/Ml 1 Ml Syringe) 1 mg IVP Q3HR PRN PRN Reason: Severe Pain Last Admin: 10/06/21 19:14 Dose: 1 mg Hydromorphone HCl (Hydromorphone 0.5 Mg/0.5 Ml Syringe) 0.25 mg IVP Q1HR PRN PRN Reason: Pain Last Admin: 10/06/21 05:01 Dose: 0.25 mg Piperacillin Sod/Tazobactam (Sod 3.375 gm/ Sodium Chloride) 100 mls @ 25 mls/hr IVPB Q8HR [facility]; Protocol Last Admin: 10/15/21 08:40 Dose: 25 mls/hr Insulin Aspart (Insulin Aspart (Novolog) 100 Unit/Ml Vial) 0 unit SQ ACHS [facility]; Protocol Last Admin: 10/15/21 12:51 Dose: Not Given Magnesium Oxide (Magnesium Oxide 400 Mg Tab) 400 mg PO DAILY [facility] Last Admin: 10/15/21 08:41 Dose: 400 mg Methocarbamol (Methocarbamol 750 Mg Tab) 750 mg PO TID [facility] Last Admin: 10/15/21 08:41 Dose: 750 mg Metoclopramide HCl (Metoclopramide 5 Mg/Ml 2 Ml Vial) 10 mg IVP Q6HR PRN PRN Reason: Nausea and Vomiting Metoprolol Tartrate (Metoprolol Tartrate 25 Mg Tab) 25 mg PO TID [facility] Last Admin: 10/15/21 08:41 Dose: 25 mg Miscellaneous Information (Magnesium Replacement Protocol 1 Each Misc) 1 each MISCELLANE DAILY PRN; Protocol PRN Reason: Per Protocol Miscellaneous Information (Magnesium Replacement Protocol 1 Each Misc) 1 each MISCELLANE DAILY PRN; Protocol PRN Reason: Per Protocol Naloxone HCl (Naloxone 0.4 Mg/Ml 1 Ml Vial) 0.2 mg IV Q2M PRN PRN Reason: Opioid Reversal Ondansetron HCl (Ondansetron 4 Mg/2 Ml Vial) 4 mg IVP Q8HR PRN PRN Reason: Nausea And Vomiting Last Admin: 10/02/21 09:06 Dose: 4 mg Physical exam: GENERAL: The patient is alert and oriented x3, not in any acute distress. Well developed, well nourished. pale HEENT: Pupils are round and equally reacting to light. EOMI. No scleral icterus. No conjunctival pallor. Normocephalic, atraumatic. No pharyngeal erythema. No thyromegaly. CARDIOVASCULAR: S1 and S2 present. No murmurs, rubs, or gallops. PULMONARY: diminished breath sounds bilaterally with , no wheezing or crackles, some scattered rhonchi noted. ABDOMEN: Soft, mild generalized tenderness and mild generalized distention, some mild drainage noted from surgical site, normoactive bowel sounds. No palpable organomegaly. Colostomy bag in place, Neal catheter with hematuria noted MUSCULOSKELETAL: No joint swelling or deformity. EXTREMITIES: No cyanosis, clubbing, or pedal edema. NEUROLOGICAL: Gross neurological examination did not reveal any focal deficits. diffuse weakness SKIN: No rashes. no petechiae. Assessment: -Sigmoid wall thickening suspicious for sigmoid mass with partial colon obstruction. status post exploratory laparotomy with Sigmoid colectomy with end colostomy, Partial cystectomy, Left salpingectomy, Appendectomy, Repair of left ureter secondary to left ureteral injury during surgical resection -A. fib with RVR, currently rate controlled -Hematuria -surgical site wound infection finalized with ecoli -Hypertension -Hyperlipidemia -History of COPD, not in acute exacerbation -hypomagnesemia, improved -GI prophylaxis -DVT prophylaxis -Full code Plan: This is a pleasant 66 years old female. status post bowel surgery for her possible large sigmoid colon mass. Also with A. fib. that is currently rate controlled. Cardiology following as needed and eliquis placed on hold for continued hematuria. Encouraged Incentive spirometer at the bedside and encourage the patient to continue using at least 10 times every hour while awake, wean FI02 as tolerated, currently on 2L via NC Multiple medical consultations following including Pulmonary, Surgery, urology, and cardiology team following. Oncology following as well and Pathology sent to [facility] and awaiting patho report. Pathologic report pending and oncology arranging for outpatient follow-up PT/OT: Following, patient is agreeable to ECF and has been accepted at [facility] and authorization will be needed and will follow-up with other consultations about treatment plan Wound culture finalized showing ecoli of the abdominal surgical site and will continue IV Zosyn Will repeat am labs and replace electrolytes per protocol. Urology following and patient will continue with indwelling neal catheter with outpatient follow up in 2 weeks. Hematuria noted and hemoglobin is stable. eliquis placed on hold and patient to undergo cystogram per urology tidat and will monitor closely for drop in hemoglobin or any worsening hematuria. Due to multiple complex medical issues, prognosis is guarded The impression and plan of care has been dictated by Tamera Ling, Nurse Practitioner as directed. Dr. Loy MD I have performed a history and examination and MDM of this patient, discussed the same with the dictator, and agree with the dictator's assessment and plan as written ,documented as a scribe. Based on total visit time, I have performed more than 50% of the visit. Objective - Vital Signs Vital signs: Vital Signs Temp 97.4 F L 10/15/21 05:00 Pulse 89 10/15/21 08:48 Resp 18 10/15/21 05:00 BP 129/71 10/15/21 08:48 Pulse Ox 94 L 10/15/21 07:40 FiO2 40 10/03/21 08:15 Intake & Output 10/14/21 10/15/21 10/15/21 18:59 06:59 18:59 Intake Total 554 350 Output Total 1999 Balance 554 -1650 Intake: Intake, IV Titration 200 Amount Piperacillin-Tazobactam 3 200 .375 gm In Sodium Chloride 0.9% 100 ml @ 25 mls/hr IVPB Q8HR [facility] Rx# :[id number] Oral 354 350 Output: Urine 1999 Other: Voiding Method Indwelling Catheter Indwelling Catheter - Labs CBC & Chem 7: 10/15/21 08:06 10/13/21 06:37 Labs: Abnormal Lab Results - Last 24 Hours (Table) 10/14/21 10/14/21 10/14/21 Range/Units 12:42 17:15 21:13 RBC (3.80-5.40) m/uL Hgb (11.4-16.0) gm/dL Hct (34.0-46.0) % MCV (80.0-100.0) fL MCHC (31.0-37.0) g/dL Plt Count (150-450) k/uL Lymphocytes # (1.0-4.8) k/uL POC Glucose (mg/dL) 113 H 103 H 116 H (75-99) mg/dL 10/15/21 Range/Units 08:06 RBC 2.98 L (3.80-5.40) m/uL Hgb 9.6 L (11.4-16.0) gm/dL Hct 31.7 L (34.0-46.0) % MCV 106.4 H (80.0-100.0) fL MCHC 30.1 L (31.0-37.0) g/dL Plt Count 490 H (150-450) k/uL Lymphocytes # 0.9 L (1.0-4.8) k/uL POC Glucose (mg/dL) (75-99) mg/dL
[2021-10-16 06:26] LABS: Basophils % (A) 1 %; Eosinophils # (A) 0.2 k/uL (0-0.7); Eosinophils % (A) 3 %; HCT 28.1 % (34.0-46.0); HGB 8.7 gm/dL (11.4-16.0); Hypochromasia Moderate; Lymphocytes # (A) 1.1 k/uL (1.0-4.8); Lymphocytes % (A) 18 %; MCH 32.5 pg (25.0-35.0); MCHC 30.8 g/dL (31.0-37.0); MCV 105.5 fL (80.0-100.0); Macrocytosis Moderate; Mean Platelet Volume 7.1; Monocytes # (A) 0.4 k/uL (0-1.0); Monocytes % (A) 7 %; Neutrophils % (A) 69 %; Platelet Count 494 k/uL (150-450); RBC 2.67 m/uL (3.80-5.40); RDW 13.8 % (11.5-15.5); WBC 5.8 k/uL (3.8-10.6)
[2021-10-16 06:53] LABS: African American GFR (CKD) >90 (>60 ml/min/1.73 sqM); Anion Gap 1 mmol/L; Blood Urea Nitrogen 6 mg/dL (7-17); Calcium 7.6 mg/dL (8.4-10.2); Carbon Dioxide 33 mmol/L (22-30); Chloride 106 mmol/L (98-107); Glucose 86 mg/dL (74-99); Non-African American GFR(CKD) >90 (>60 ml/min/1.73 sqM); Potassium 4.2 mmol/L (3.5-5.1); Sodium 140 mmol/L (137-145)
[2021-10-16 07:13] LABS: Glucose,Whole Blood 93 mg/dL (75-99)
[2021-10-16] MEDS: INSULIN ASPART (NovoLOG) 100 UNIT/ML VIAL SQ SCH ×4 (07:18→20:59)
[2021-10-16] MEDS: FAMOTIDINE 20 MG TAB PO SCH ×2 (09:00→21:38)
[2021-10-16] MEDS: METOPROLOL TARTRATE 25 MG TAB PO SCH ×3 (09:00→21:38)
[2021-10-16] MEDS: methocarbamoL 750 MG TAB PO SCH ×3 (09:00→22:11)
[2021-10-16] MEDS: MAGNESIUM OXIDE 400 MG TAB PO SCH (09:00)
[2021-10-16] MEDS: HYDROcodone/APAP 5-325MG 1 EACH TAB PO PRN (09:00)
[2021-10-16] MEDS: DIGOXIN 125 MCG TAB PO SCH (09:36)
[2021-10-16 12:05] LABS: Glucose,Whole Blood 115 mg/dL (75-99)
--- NOTE | 2021-10-16 13:50 | P.PN ---
Subjective Progress Note Date: 10/16/21 CHIEF COMPLAINT: Sigmoid colon tumor HISTORY OF PRESENT ILLNESS: Patient is status post exploratory laparotomy, sigmoid colectomy with end colostomy, partial cystectomy, left salpingectomy, appendectomy and repair of left ureter on 10/01/21. Patient is sitting up at bedside chair. She reports her pain is controlled. Denies any nausea or vomiting. Her ostomy is functioning. 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 She remains off Eliquis. Afebrile. WBC 5.8 HGB 9.6 down to 8.7. pathology second opinion from [facility] had shown diverticulitis. No evidence of malignancy. Dr. Sams did discuss these findings with the patient. Patient seen and examined with Dr. sams EXAM: VITAL SIGNS: Reviewed. GENERAL: Well-developed in no acute distress. HEENT: No sclera icterus. Extraocular movements grossly intact. Moist buccal mucosa. Head is atraumatic, normocephalic. ABDOMEN: Soft. Mild tenderness at incision between ostomy in incision. Ostomy functioning. Abdominal incision packed with aquacel silver packing. Sanguinous brownish discharge noted on the surgical dressing. NEUROLOGIC: Alert and oriented. Cranial nerves II through XII grossly intact. ASSESSMENT: 1. 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 Infection at abdominal incision site PLAN: -Continue local wound care to abdominal incision and ostomy -Continue Zosyn -Continue low fiber Diet -Continue Mcfarland catheter as instructed by urology -Encourage patient to ambulate and increase activity -Encourage patient to use incentive spirometer Physician Gun Repair Clerk note has been reviewed by physician. Signing provider agrees with the documented findings, assessment, and plan of care. Objective - Vital Signs Vital signs: Vital Signs Temp 99.2 F 10/16/21 11:43 Pulse 85 10/16/21 11:43 Resp 16 10/16/21 11:43 BP 124/71 10/16/21 11:43 Pulse Ox 98 10/16/21 11:43 FiO2 40 10/03/21 08:15 Intake & Output 10/15/21 10/16/21 10/16/21 18:59 06:59 18:59 Intake Total 100 Output Total 400 500 Balance -300 -500 Intake: Intake, IV Titration 100 Amount Piperacillin-Tazobactam 3 100 .375 gm In Sodium Chloride 0.9% 100 ml @ 25 mls/hr IVPB Q8HR [facility] Rx# :[id number] Output: Urine 200 500 Stool 200 Other: Voiding Method Indwelling Catheter Indwelling Catheter Indwelling Catheter - Labs CBC & Chem 7: 10/16/21 05:35 10/16/21 05:35 Labs: Abnormal Lab Results - Last 24 Hours (Table) 10/15/21 10/15/21 10/16/21 Range/Units 17:04 20:11 05:35 RBC 2.67 L (3.80-5.40) m/uL Hgb 8.7 L (11.4-16.0) gm/dL Hct 28.1 L (34.0-46.0) % MCV 105.5 H (80.0-100.0) fL MCHC 30.8 L (31.0-37.0) g/dL Plt Count 494 H (150-450) k/uL Carbon Dioxide (22-30) mmol/L BUN (7-17) mg/dL POC Glucose (mg/dL) 105 H 109 H (75-99) mg/dL Calcium (8.4-10.2) mg/dL 10/16/21 10/16/21 Range/Units 05:35 12:04 RBC (3.80-5.40) m/uL Hgb (11.4-16.0) gm/dL Hct (34.0-46.0) % MCV (80.0-100.0) fL MCHC (31.0-37.0) g/dL Plt Count (150-450) k/uL Carbon Dioxide 33 H (22-30) mmol/L BUN 6 L (7-17) mg/dL POC Glucose (mg/dL) 115 H (75-99) mg/dL Calcium 7.6 L (8.4-10.2) mg/dL
--- NOTE | 2021-10-16 15:16 | XR ---
EXAMINATION TYPE: XR chest 1V DATE OF EXAM: 10/16/2021 COMPARISON: Chest x-ray 10/09/2021 HISTORY: Shortness of breath TECHNIQUE: Single frontal view of the chest is obtained. FINDINGS: Bibasilar increased density excuse the hemidiaphragms, this blunting the costophrenic angl es similar to prior exam. Cardiac mediastinal silhouette shows no change. Aorta is dense. No evident pneumothorax. IMPRESSION: Basilar effusions and associated atelectasis, correlate to exclude pneumonia versus hi a
--- NOTE | 2021-10-16 15:29 | P.PN ---
Progress Note - Text Progress Note Date: 10/16/21 The LUZMA drain has been removed. The patient is urologically stable. The degree of hematuria has diminished. A cystogram performed yesterday showed no evidence of extravasation, so the Mcfarland catheter will be removed.
[2021-10-16 16:59] LABS: Glucose,Whole Blood 109 mg/dL (75-99)
[2021-10-16 20:27] LABS: Glucose,Whole Blood 110 mg/dL (75-99)
[2021-10-16] MEDS: ATORVASTATIN 40 MG TAB PO SCH (21:38)
[2021-10-16] MEDS ORDERED: FUROSEMIDE 10 MG/ML 4 ML VIAL IV STA (21:43)
--- NOTE | 2021-10-16 21:57 | P.PN ---
Subjective 66-year-old female presents to the emergency department with a chief complaint of abdominal pain. Patient states her symptoms started 10 days ago. Describes it as generalized abdominal pain with no radiation. No back pain. She states she had intermittent nausea for the first couple days that has since resolved. No fever, chills, vomiting, or diarrhea. Normal bowel movements with last bowel movement yesterday, nonbloody. Patient has been tolerating oral intake okay however states her appetite has decreased. No burning with urination, increased urinary frequency/urgency, or blood in the urine. No chest pain or shortness of breath. Patient does have history of atrial fibrillation on Eliquis. No upper respiratory symptoms or recent sick contacts. No previous abdominal surgeries. Patient does admit to tobacco use with [id number] history. She denies family history of aneurysm. CT is significant for a suspected partial large bowel obstruction secondary to eccentric bowel wall thickening of the sigmoid colon which is suspicious for primary malignancy. EKG revealed atrial fibrillation with rapid ventricular response; patient was started on IV Cardizem Patient continues to have abdominal distention and pain; no bowel movements; general surgery on board and planning to repeat abdominal x-ray with tentative plan for partial colectomy tomorrow Patient remains in atrial fibrillation with controlled ventricular response at this time; no anticoagulation therapy for anticipated surgery in next 24-48 h ours; echocardiogram reveals normal LV function and no significant valvular abnormalities; cardiology on board and recommending to continue with Lasix 20 mg daily for mild fluid overload; Resume the care of the patient 10/01/2021. Patient awake and alert. She still with abdominal complaint and pain and discomfort with no bowel movement. Surgery team are planning for exploratory laparotomy with possible diverting colostomy and possible sigmoid resection. Public Health Outreach Worker team on the case also for preop evaluation and also for her A. fib. Currently rate controlled on metoprolol and oral Lasix. She is on D5 half-normal saline at 50 mL per hour, Flagyl and Zosyn. Labs look stable. 10/02/2021 Patient with sigmoid mass status post exploratory laparotomy with Sigmoid colectomy with end colostomy, Partial cystectomy, Left salpingectomy, Appendectomy, Repair of left ureterPeriod secondary to left ureteral injury during surgical resection. Patient vomited by urologist and had left ureteral repair. Currently has a Mcfarland catheter was recommendation to stay for 2 weeks. Post operatively patient got intubated. Patient currently remains on mechanical ventilation She remains on Zosyn, Eliquis on hold. Patient is started on Pepcid and subcu heparin.. She received also normal saline boluses 10/03/2021 Today patient in the ICU status post extubation. She is postoperative day #2. She still nothing by mouth, awake but very weak. Her colostomy back in a Place, no bowel movement yet. Also Mcfarland catheter with PATRICE drain with more than 200 of serosanguineous fluid. Her pathology is pending, Eliquis still on hold, patient kept on Flagyl and Zosyn and IV fluids. Patient received 1 L of normal saline for hypertension, also her metoprolol dose lowered to 25 mg. 10/04/2021 Patient clinically is improving gradually, her pain at the surgery site is country of, she is fully awake and oriented, she does not look in distress. Her colostomy tube in the left lower quadrant abdomen with some small amounts light brown stool. Mcfarland catheter in place with yellow urine. A follow-up for stent urologist recommended CT of the abdomen without contrast was showing mild positioning of the double J stent, CT urogram is ordered and is pending, neurology following closely. Other that clinically she is doing generally well, improving slowly. She kept nothing by mouth with surgery team following him closely as well. Patient's can go to the general medical floor today. Continue with Flagyl and Zosyn, D5 half-normal saline at 50 mL/h and metoprolol increased to 25 g 3 times a day today. She is also a small dose of oral Lasix while Eliquis still on hold 10/05/2021 Patient remains nothing by mouth, colostomy with no bowel movement or gas. Mcfarland catheter in place. She remains on D5 half-normal saline at 50 mL per hour She looks tired but no distress. Hemodynamically stable. Labs reviewed with WBC 8.2, creatinine 1.1. CT urogram: Extraluminal secreted IV contrast most pronounced along the left ureter with some also appearing near the distal right ureter on delayed imaging. This is favored to represent a left ureteral injury with layering in the pelvis. Right ureteral injury is not entirely exclude it.A left ureteral stent is seen. urologist on the case 10/06/2021 patient remains clinically same with no significant change, she is tired looking, she still nothing by mouth. Colostomy back still not showing bowel movements today however it has bowel movement yesterday Mcfarland catheter in place. Patient followed closely by urology service Pathology did not show final diagnosis and the specimen was sent to [facility] by pathologist for consultation. Oncology team on the case also. Continue with Zosyn, Flagyl and D5 half-normal saline at 50 mL per hour. 10/07/2021 Patient generally doing well and she is improving gradually and slowly. His morning she was still nothing by mouth but surgery team are planning to start her on diet and liquid diet today. Colostomy back is working and last time and it was last night. Mcfarland catheter in place with some dark colored urine which is expected from her recent surgery and some bleeding. Repeat chest x-ray showing pleural effusion with atelectasis. Pending pathology which is sent then [facility] for further consultation. She remains on Flagyl and Zosyn and D5 half-normal saline at 50. Eliquis on hold Subjective I am Resume the care of the patient today 10/16/2021 Patient today looks stronger and more awake and she was sitting on bed compared to last time I saw her. She is hemodynamically stable. Labs reviewed in the looks stable as well. Urologist team are following closely and the recommend to discontinue Mcfarland catheter after cystograms showing no extravasation. Urologist. Also surgery team on the board Today she became hypoxic on room air at 85%, repeat chest x-ray showing bilateral infiltrate with basilar effusion and atelectasis but pneumonia and edema cannot be excluded per radiologist however patient and Zosyn, most likely is due to fluid. We will check ultrasound of the chest. If one-time dose of Lasix. Patient is not on IV fluid. Also Eliquis is on hold for surgery team Oncology team also the case Objective - Vital Signs Vital signs: Vital Signs Temp 97.8 F 10/16/21 05:00 Pulse 94 10/16/21 05:00 Resp 18 10/16/21 05:00 BP 137/76 10/16/21 05:00 Pulse Ox 95 10/16/21 09:37 FiO2 40 10/03/21 08:15 Intake & Output 10/15/21 10/16/21 10/16/21 18:59 06:59 18:59 Intake Total 100 Output Total 400 500 Balance -300 -500 Intake: Intake, IV Titration 100 Amount Piperacillin-Tazobactam 3 100 .375 gm In Sodium Chloride 0.9% 100 ml @ 25 mls/hr IVPB Q8HR [facility] Rx# :[id number] Output: Urine 200 500 Stool 200 Other: Voiding Method Indwelling Catheter Indwelling Catheter Indwelling Catheter - Exam GENERAL: The patient is alert and oriented x3, not in any acute distress. Well developed, well nourished. HEENT: Pupils are round and equally reacting to light. EOMI. No scleral icterus. No conjunctival pallor. Normocephalic, atraumatic. No pharyngeal erythema. No thyromegaly. CARDIOVASCULAR: S1 and S2 present. No murmurs, rubs, or gallops. PULMONARY: Chest is clear to auscultation, no wheezing or crackles. -ABDOMEN: Soft, mild generalized tenderness and mild generalized distention, normoactive bowel sounds. No palpable organomegaly. Colostomy tube in place, Mcfarland catheter MUSCULOSKELETAL: No joint swelling or deformity. EXTREMITIES: No cyanosis, clubbing, or pedal edema. NEUROLOGICAL: Gross neurological examination did not reveal any focal deficits. SKIN: No rashes. no petechiae. - Labs CBC & Chem 7: 10/16/21 05:35 10/16/21 05:35 Labs: Abnormal Lab Results - Last 24 Hours (Table) 10/15/21 10/15/21 10/16/21 Range/Units 17:04 20:11 05:35 RBC 2.67 L (3.80-5.40) m/uL Hgb 8.7 L (11.4-16.0) gm/dL Hct 28.1 L (34.0-46.0) % MCV 105.5 H (80.0-100.0) fL MCHC 30.8 L (31.0-37.0) g/dL Plt Count 494 H (150-450) k/uL Carbon Dioxide (22-30) mmol/L BUN (7-17) mg/dL POC Glucose (mg/dL) 105 H 109 H (75-99) mg/dL Calcium (8.4-10.2) mg/dL 10/16/21 Range/Units 05:35 RBC (3.80-5.40) m/uL Hgb (11.4-16.0) gm/dL Hct (34.0-46.0) % MCV (80.0-100.0) fL MCHC (31.0-37.0) g/dL Plt Count (150-450) k/uL Carbon Dioxide 33 H (22-30) mmol/L BUN 6 L (7-17) mg/dL POC Glucose (mg/dL) (75-99) mg/dL Calcium 7.6 L (8.4-10.2) mg/dL Assessment and Plan Assessment: -Sigmoid wall thickening suspicious for sigmoid months with partial colon obstruction. status post exploratory laparotomy with Sigmoid colectomy with end colostomy, Partial cystectomy, Left salpingectomy, Appendectomy, Repair of left ureterPeriod secondary to left ureteral injury during surgical resection -A. fib and RVR. -Hypertension -Hyperlipidemia -History of COPD, not in activation Plan: this is a pleasant 66 years old female. Going for bowel surgery for her possible colon mass. Also with A. fib. Continue with Flagyl and Zosyn One-time dose of Lasix 40 mg IV 1, but on IV fluids Surgery team on the case. Pathology sent to [facility]: Follow-up results Cardiology team on the case, and Pulmonary team consult have already evaluated the patient urology team on the case, Recommend to discontinue Mcfarland catheter Labs and medication were reviewed.. Continue same treatment. Continue with symptomatic treatment. Resume home medication. Monitor lytes and vitals. DVT and GI prophylaxis. Further recommendations as per clinical course of the patient DVT prophylaxis: Eliquis is on hold GI Prophylaxis: Pepcid PT/OT Ongoing Prognosis is guarded
[2021-10-17 07:09] LABS: Glucose,Whole Blood 99 mg/dL (75-99)
[2021-10-17] MEDS: INSULIN ASPART (NovoLOG) 100 UNIT/ML VIAL SQ SCH ×4 (07:26→21:16)
[2021-10-17] MEDS: DIGOXIN 125 MCG TAB PO SCH (08:21)
[2021-10-17] MEDS: FAMOTIDINE 20 MG TAB PO SCH ×2 (08:21→21:04)
[2021-10-17] MEDS: PIPERACILLIN-TAZOBACTAM 3.375 GM in SODIUM CHLORIDE 0.9% 100 ML IVPB SCH ×3 (08:21→23:42)
[2021-10-17] MEDS: METOPROLOL TARTRATE 25 MG TAB PO SCH ×3 (08:22→22:31)
[2021-10-17] MEDS: MAGNESIUM OXIDE 400 MG TAB PO SCH (08:22)
[2021-10-17] MEDS: methocarbamoL 750 MG TAB PO SCH ×3 (08:22→22:31)
--- NOTE | 2021-10-17 08:55 | CDI ---
Documentation Clarification Form Date: 10/16/2021 12:01:00 PM From: Arpita Hart RN, CCDS Admit Date: 09/28/2021 08:56:00 PM Patient Name: Aide Menon Visit Number: [id number] Discharge Date: ATTENTION: The Clinical Documentation Specialists (CDI) and [facility] Coding Staff appreciate your assistance in clarifying documentation. Please respond to the clarification below the line at the bottom and electronically sign. The CDI & [facility] Coding staff will review the response and follow-up if needed. Please note: Queries are made part of the Legal Health Record. If you have any questions, please contact the author of this message via ITS. Dr. Victor M Luevano Unspecified anemia is documented in the surgical progress notes on 10/14/21. Additional specificity regarding the type and acuity of anemia is requested. 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 On 10/01/21 she had a sigmoid colectomy with end colostomy, partial cystectomy, left salpingectomy appendectomy, repair of left ureter. She has had hematuria since revision of left ureteroureterostomy on 10/05/21. 10/01 HGB 13.0, HCT 42.9 10/05 HGB 9.8 HCT 32.6 10/11 HGB 8.8, HCT 28.0 10/16 HGB 8.7, HCT 28.1 10/10 Urology progress note (Dr. Zheng) There is some old blood in the urine is expected with a stent and the bladder repair. We will continue monitoring. Treatment: Hold Eliquis Monitor CBC Daily per orders Please clarify the type and acuity of anemia, and is the condition expected or unexpected? [ X ] Acute blood loss anemia, expected [ ] Acute on chronic blood loss anemia [ ] Chronic blood loss anemia [ ] Unable to determine [ ] Other, please specify (Template Last Revised: June 2020) MTDD
[2021-10-17 11:14] LABS: African American GFR (CKD) 103.2 (60.0-200.0); Anion Gap 8.5 mmol/L (10.00-18.00); BUN/Creat Ratio 8.29 Ratio (12.00-20.00); Blood Urea Nitrogen 5.8 mg/dL (9.0-27.0); Calcium 8.3 mg/dL (8.7-10.3); Carbon Dioxide 31.5 mmol/L (20.0-27.5); Magnesium 1.9 mg/dL (1.5-2.4)
[2021-10-17 11:40] LABS: Glucose,Whole Blood 122 mg/dL (75-99)
--- NOTE | 2021-10-17 14:30 | P.PN ---
Subjective Progress Note Date: 10/17/21 CHIEF COMPLAINT: Sigmoid colon tumor HISTORY OF PRESENT ILLNESS: Patient is status post exploratory laparotomy, sigmoid colectomy with end colostomy, partial cystectomy, left salpingectomy, appendectomy and repair of left ureter on 10/01/21. Patient reports that she is feeling fairly well today. She reports her pain is controlled. Her ostomy is functioning. Her Mcfarland catheter and LUZMA drain were both discontinued yesterday. Her urine output is starting to clear. It is a gate tender red in color. Afebrile. Sodium 143 potassium 4 creatinine 0.7 magnesium 1.9 CA 125 is elevated at 115 pathology second opinion from [facility] had shown diverticulitis. No evidence of malignancy. Dr. Sams did discuss these findings with the patient yesterday. Patient has been started on IV Lasix per medicine service for fluid overload. Patient seen and examined with Dr. sams EXAM: VITAL SIGNS: Reviewed. GENERAL: Well-developed in no acute distress. HEENT: No sclera icterus. Extraocular movements grossly intact. Moist buccal mucosa. Head is atraumatic, normocephalic. ABDOMEN: Soft. nondistended. Ostomy functioning. Abdominal incision packed with aquacel silver packing. Sanguinous brownish discharge noted on the surgical dressing. NEUROLOGIC: Alert and oriented. Cranial nerves II through XII grossly intact. ASSESSMENT: 1. 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 Infection at abdominal incision site PLAN: -Continue local wound care to abdominal incision and ostomy -Continue Zosyn -Continue low fiber Diet -Encourage patient to ambulate and increase activity -Encourage patient to use incentive spirometer -Possible discharge tomorrow from surgical standpoint. Patient is suppose [facility] discharge Physician Taxation Accountant note has been reviewed by physician. Signing provider agrees with the documented findings, assessment, and plan of care. Objective - Vital Signs Vital signs: Vital Signs Temp 98 F 10/17/21 13:00 Pulse 81 10/17/21 13:00 Resp 16 10/17/21 13:00 BP 130/69 10/17/21 13:00 Pulse Ox 95 10/17/21 13:00 FiO2 40 10/03/21 08:15 Intake & Output 10/16/21 10/17/21 10/17/21 18:59 06:59 18:59 Intake Total 100 Output Total 950 1200 Balance -950 -1100 Weight 72 kg Intake: Intake, IV Titration 100 Amount Piperacillin-Tazobactam 3 100 .375 gm In Sodium Chloride 0.9% 100 ml @ 25 mls/hr IVPB Q8HR [facility] Rx# :[id number] Output: Urine 650 1200 Stool 300 Other: Voiding Method Indwelling Catheter Toilet Toilet # Voids 1 - Labs CBC & Chem 7: 10/16/21 05:35 10/17/21 06:58 Labs: Abnormal Lab Results - Last 24 Hours (Table) 10/16/21 10/16/21 10/16/21 Range/Units 05:35 16:57 20:25 Carbon Dioxide (20.0-27.5) mmol/L Anion Gap (10.00-18.00) mmol/L BUN (9.0-27.0) mg/dL BUN/Creatinine Ratio (12.00-20.00) Ratio POC Glucose (mg/dL) 109 H 110 H (75-99) mg/dL Calcium (8.7-10.3) mg/dL CA 125 Antigen 115.0 H (0.0-30.1) U/mL 10/16/21 10/17/21 10/17/21 Range/Units 20:25 06:58 11:38 Carbon Dioxide 31.5 H (20.0-27.5) mmol/L Anion Gap 8.50 L (10.00-18.00) mmol/L BUN 5.8 L (9.0-27.0) mg/dL BUN/Creatinine Ratio 8.29 L (12.00-20.00) Ratio POC Glucose (mg/dL) 110 H 122 H (75-99) mg/dL Calcium 8.3 L (8.7-10.3) mg/dL CA 125 Antigen (0.0-30.1) U/mL
[2021-10-17] MEDS: FUROSEMIDE 10 MG/ML 4 ML VIAL IV SCH ×2 (15:45→22:31)
--- NOTE | 2021-10-17 16:06 | US ---
EXAMINATION TYPE: US chest DATE OF EXAM: 10/17/2021 COMPARISON: NONE CLINICAL HISTORY: pl effusion. TECHNIQUE: Targeted ultrasound of the posterior lower bilateral hemithoraces EXAM MEASUREMENTS: Right Pleural Effusion pocket size: 2.8 cm Right skin surface to fluid distance: 8.7 cm Left Pleural Effusion pocket size: 6.8 cm Left skin surface to fluid distance: 2.7 cm LUNG AT: 4.0cm Right side marked for possible thoracentesis outside the dept. Left side marked for possible thoracentesis outside the dept. Pulmonologists are able to review the images in the patient?s EMR. IMPRESSIONS: 1. Bilateral pleural effusions
[2021-10-17 17:10] LABS: Glucose,Whole Blood 117 mg/dL (75-99)
--- NOTE | 2021-10-17 17:13 | P.PN ---
Progress Note - Text Progress Note Date: 10/17/21 The patient cystogram showed no extravasation, so the Mcfarland catheter was removed yesterday. She is voiding without difficulty, though she reports increased urinary frequency. She was reassured that this is expected and is very likely to result. She will follow up with Dr. Luevano in 4 weeks for office cystoscopy was stent removal.
[2021-10-17] MEDS: ATORVASTATIN 40 MG TAB PO SCH (21:04)
[2021-10-17 21:12] LABS: Glucose,Whole Blood 110 mg/dL (75-99)
--- NOTE | 2021-10-17 23:12 | P.PN ---
Subjective 66-year-old female presents to the emergency department with a chief complaint of abdominal pain. Patient states her symptoms started 10 days ago. Describes it as generalized abdominal pain with no radiation. No back pain. She states she had intermittent nausea for the first couple days that has since resolved. No fever, chills, vomiting, or diarrhea. Normal bowel movements with last bowel movement yesterday, nonbloody. Patient has been tolerating oral intake okay however states her appetite has decreased. No burning with urination, increased urinary frequency/urgency, or blood in the urine. No chest pain or shortness of breath. Patient does have history of atrial fibrillation on Eliquis. No upper respiratory symptoms or recent sick contacts. No previous abdominal surgeries. Patient does admit to tobacco use with [id number] history. She denies family history of aneurysm. CT is significant for a suspected partial large bowel obstruction secondary to eccentric bowel wall thickening of the sigmoid colon which is suspicious for primary malignancy. EKG revealed atrial fibrillation with rapid ventricular response; patient was started on IV Cardizem Patient continues to have abdominal distention and pain; no bowel movements; general surgery on board and planning to repeat abdominal x-ray with tentative plan for partial colectomy tomorrow Patient remains in atrial fibrillation with controlled ventricular response at this time; no anticoagulation therapy for anticipated surgery in next 24-48 h ours; echocardiogram reveals normal LV function and no significant valvular abnormalities; cardiology on board and recommending to continue with Lasix 20 mg daily for mild fluid overload; Resume the care of the patient 10/01/2021. Patient awake and alert. She still with abdominal complaint and pain and discomfort with no bowel movement. Surgery team are planning for exploratory laparotomy with possible diverting colostomy and possible sigmoid resection. Button Machine Operator team on the case also for preop evaluation and also for her A. fib. Currently rate controlled on metoprolol and oral Lasix. She is on D5 half-normal saline at 50 mL per hour, Flagyl and Zosyn. Labs look stable. 10/02/2021 Patient with sigmoid mass status post exploratory laparotomy with Sigmoid colectomy with end colostomy, Partial cystectomy, Left salpingectomy, Appendectomy, Repair of left ureterPeriod secondary to left ureteral injury during surgical resection. Patient vomited by urologist and had left ureteral repair. Currently has a Mcfarland catheter was recommendation to stay for 2 weeks. Post operatively patient got intubated. Patient currently remains on mechanical ventilation She remains on Zosyn, Eliquis on hold. Patient is started on Pepcid and subcu heparin.. She received also normal saline boluses 10/03/2021 Today patient in the ICU status post extubation. She is postoperative day #2. She still nothing by mouth, awake but very weak. Her colostomy back in a Place, no bowel movement yet. Also Mcfarland catheter with PATRICE drain with more than 200 of serosanguineous fluid. Her pathology is pending, Eliquis still on hold, patient kept on Flagyl and Zosyn and IV fluids. Patient received 1 L of normal saline for hypertension, also her metoprolol dose lowered to 25 mg. 10/04/2021 Patient clinically is improving gradually, her pain at the surgery site is country of, she is fully awake and oriented, she does not look in distress. Her colostomy tube in the left lower quadrant abdomen with some small amounts light brown stool. Mcfarland catheter in place with yellow urine. A follow-up for stent urologist recommended CT of the abdomen without contrast was showing mild positioning of the double J stent, CT urogram is ordered and is pending, neurology following closely. Other that clinically she is doing generally well, improving slowly. She kept nothing by mouth with surgery team following him closely as well. Patient's can go to the general medical floor today. Continue with Flagyl and Zosyn, D5 half-normal saline at 50 mL/h and metoprolol increased to 25 g 3 times a day today. She is also a small dose of oral Lasix while Eliquis still on hold 10/05/2021 Patient remains nothing by mouth, colostomy with no bowel movement or gas. Mcfarland catheter in place. She remains on D5 half-normal saline at 50 mL per hour She looks tired but no distress. Hemodynamically stable. Labs reviewed with WBC 8.2, creatinine 1.1. CT urogram: Extraluminal secreted IV contrast most pronounced along the left ureter with some also appearing near the distal right ureter on delayed imaging. This is favored to represent a left ureteral injury with layering in the pelvis. Right ureteral injury is not entirely exclude it.A left ureteral stent is seen. urologist on the case 10/06/2021 patient remains clinically same with no significant change, she is tired looking, she still nothing by mouth. Colostomy back still not showing bowel movements today however it has bowel movement yesterday Mcfarland catheter in place. Patient followed closely by urology service Pathology did not show final diagnosis and the specimen was sent to [facility] by pathologist for consultation. Oncology team on the case also. Continue with Zosyn, Flagyl and D5 half-normal saline at 50 mL per hour. 10/07/2021 Patient generally doing well and she is improving gradually and slowly. His morning she was still nothing by mouth but surgery team are planning to start her on diet and liquid diet today. Colostomy back is working and last time and it was last night. Mcfarland catheter in place with some dark colored urine which is expected from her recent surgery and some bleeding. Repeat chest x-ray showing pleural effusion with atelectasis. Pending pathology which is sent then [facility] for further consultation. She remains on Flagyl and Zosyn and D5 half-normal saline at 50. Eliquis on hold Subjective I am Resume the care of the patient today 10/16/2021 Patient today looks stronger and more awake and she was sitting on bed compared to last time I saw her. She is hemodynamically stable. Labs reviewed in the looks stable as well. Urologist team are following closely and the recommend to discontinue Mcfarland catheter after cystograms showing no extravasation. Urologist. Also surgery team on the board Today she became hypoxic on room air at 85%, repeat chest x-ray showing bilateral infiltrate with basilar effusion and atelectasis but pneumonia and edema cannot be excluded per radiologist however patient and Zosyn, most likely is due to fluid. We will check ultrasound of the chest. If one-time dose of Lasix. Patient is not on IV fluid. Also Eliquis is on hold for surgery team Oncology team also the case 10/17/2021 Patient improving gradually and slowly, she still generally weak, she still hypoxic on room air but she is minimally tachypneic while at rest. Chest x-ray showing fluid overload with bilateral mild to moderate pleural effusion, chest ultrasound is reviewed. Also patient with bilateral eating like edema. She received IV Lasix 1 dose yesterday and started her on 420 mg twice daily. Mcfarland catheter was discontinued by urologist and recommended follow-up as an outpatient in [address] Luevano for cystoscopy and stent removal. Also surgery team are intending to clear the patient for discharge tomorrow. Patient still Amanda is on hold. Patient will benefit from ECF upon discharge Objective - Vital Signs Vital signs: Vital Signs Temp 97.5 F L 10/17/21 04:41 Pulse 90 10/17/21 04:41 Resp 20 10/17/21 04:41 BP 160/78 10/17/21 04:41 Pulse Ox 98 10/17/21 04:41 FiO2 40 10/03/21 08:15 Intake & Output 10/16/21 10/17/21 10/17/21 18:59 06:59 18:59 Intake Total 100 Output Total 950 1200 Balance -950 -1100 Weight 72 kg Intake: Intake, IV Titration 100 Amount Piperacillin-Tazobactam 3 100 .375 gm In Sodium Chloride 0.9% 100 ml @ 25 mls/hr IVPB Q8HR [facility] Rx# :[id number] Output: Urine 650 1200 Stool 300 Other: Voiding Method Indwelling Catheter Toilet Toilet # Voids 1 - Exam GENERAL: The patient is alert and oriented x3, not in any acute distress. Well developed, well nourished. HEENT: Pupils are round and equally reacting to light. EOMI. No scleral icterus. No conjunctival pallor. Normocephalic, atraumatic. No pharyngeal erythema. No thyromegaly. CARDIOVASCULAR: S1 and S2 present. No murmurs, rubs, or gallops. PULMONARY: Chest is clear to auscultation, no wheezing or crackles. -ABDOMEN: Soft, mild generalized tenderness and mild generalized distention, normoactive bowel sounds. No palpable organomegaly. Colostomy tube in place, Mcfarland catheter MUSCULOSKELETAL: No joint swelling or deformity. EXTREMITIES: No cyanosis, clubbing, or pedal edema. NEUROLOGICAL: Gross neurological examination did not reveal any focal deficits. SKIN: No rashes. no petechiae. - Labs CBC & Chem 7: 10/16/21 05:35 10/17/21 06:58 Labs: Abnormal Lab Results - Last 24 Hours (Table) 10/16/21 10/16/21 10/16/21 Range/Units 05:35 16:57 20:25 Carbon Dioxide (20.0-27.5) mmol/L Anion Gap (10.00-18.00) mmol/L BUN (9.0-27.0) mg/dL BUN/Creatinine Ratio (12.00-20.00) Ratio POC Glucose (mg/dL) 109 H 110 H (75-99) mg/dL Calcium (8.7-10.3) mg/dL CA 125 Antigen 115.0 H (0.0-30.1) U/mL 10/16/21 10/17/21 10/17/21 Range/Units 20:25 06:58 11:38 Carbon Dioxide 31.5 H (20.0-27.5) mmol/L Anion Gap 8.50 L (10.00-18.00) mmol/L BUN 5.8 L (9.0-27.0) mg/dL BUN/Creatinine Ratio 8.29 L (12.00-20.00) Ratio POC Glucose (mg/dL) 110 H 122 H (75-99) mg/dL Calcium 8.3 L (8.7-10.3) mg/dL CA 125 Antigen (0.0-30.1) U/mL Assessment and Plan Assessment: -Sigmoid wall thickening suspicious for sigmoid months with partial colon obstruction. status post exploratory laparotomy with Sigmoid colectomy with end colostomy, Partial cystectomy, Left salpingectomy, Appendectomy, Repair of left ureterPeriod secondary to left ureteral injury during surgical resection -A. fib and RVR. -Hypertension -Hyperlipidemia -History of COPD, not in activation Plan: this is a pleasant 66 years old female. Going for bowel surgery for her possible colon mass. Also with A. fib. Continue with Flagyl and Zosyn Start Lasix 40 mg twice a day Surgery team on the case. Pathology sent to [facility]: Follow-up results Cardiology team on the case, and Pulmonary team consult have already evaluated the patient urology team on the case, Recommend to discontinue Mcfarland catheter Labs and medication were reviewed.. Continue same treatment. Continue with symptomatic treatment. Resume home medication. Monitor lytes and vitals. DVT and GI prophylaxis. Further recommendations as per clinical course of the patient DVT prophylaxis: Eliquis is on hold GI Prophylaxis: Pepcid PT/OT Ongoing Prognosis is guarded
[2021-10-18 07:22] LABS: Glucose,Whole Blood 90 mg/dL (75-99)
[2021-10-18] MEDS: MAGNESIUM OXIDE 400 MG TAB PO SCH (09:21)
[2021-10-18] MEDS: METOPROLOL TARTRATE 25 MG TAB PO SCH ×3 (09:21→21:49)
[2021-10-18] MEDS: FAMOTIDINE 20 MG TAB PO SCH ×2 (09:22→21:49)
[2021-10-18] MEDS: DIGOXIN 125 MCG TAB PO SCH (09:22)
[2021-10-18] MEDS: PIPERACILLIN-TAZOBACTAM 3.375 GM in SODIUM CHLORIDE 0.9% 100 ML IVPB SCH ×2 (09:22→16:05)
[2021-10-18] MEDS: methocarbamoL 750 MG TAB PO SCH ×3 (09:23→21:49)
[2021-10-18] MEDS: INSULIN ASPART (NovoLOG) 100 UNIT/ML VIAL SQ SCH ×4 (09:24→23:23)
[2021-10-18] MEDS: FUROSEMIDE 10 MG/ML 4 ML VIAL IV SCH ×2 (09:30→21:50)
[2021-10-18 14:47] LABS: Glucose,Whole Blood 125 mg/dL (75-99)
[2021-10-18 14:51] LABS: African American GFR (CKD) 103.2 (60.0-200.0); Anion Gap 9.1 mmol/L (10.00-18.00); Blood Urea Nitrogen 6.3 mg/dL (9.0-27.0); Calcium 8.5 mg/dL (8.7-10.3); Carbon Dioxide 33.9 mmol/L (20.0-27.5); Magnesium 1.9 mg/dL (1.5-2.4)
--- NOTE | 2021-10-18 15:05 | P.PN ---
Subjective Progress Note Date: 10/18/21 CHIEF COMPLAINT: Sigmoid colon tumor HISTORY OF PRESENT ILLNESS: Patient is status post exploratory laparotomy, sigmoid colectomy with end colostomy, partial cystectomy, left salpingectomy, appendectomy and repair of left ureter on 10/01/21. Patient reports that she is feeling fairly well today. She reports her pain is controlled. Her ostomy is functioning. Her urine continues to become clearer. Patient had chest ultrasound completed showing bilateral pleural effusions with a left effusion 6.8 cm barrett for possible thoracentesis. Medicine service has placed patient on IV Lasix. Afebrile. Sodium 145 creatinine 0.7 Patient seen and examined with Dr. sams EXAM: VITAL SIGNS: Reviewed. GENERAL: Well-developed in no acute distress. HEENT: No sclera icterus. Extraocular movements grossly intact. Moist buccal mucosa. Head is atraumatic, normocephalic. ABDOMEN: Soft. nondistended. Ostomy functioning. Abdominal incision packed with aquacel silver packing. Sanguinous brownish discharge noted on the surgical dressing. NEUROLOGIC: Alert and oriented. Cranial nerves II through XII grossly intact. ASSESSMENT: 1. 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 Infection at abdominal incision site PLAN: -Continue local wound care to abdominal incision and ostomy -Continue Zosyn -Continue low fiber Diet -Encourage patient to ambulate and increase activity -Encourage patient to use incentive spirometer -Pleural effusion management per medicine service -Eliquis can be resumed from surgical standpoint if cleared by urology service Physician Sand Operator note has been reviewed by physician. Signing provider agrees with the documented findings, assessment, and plan of care. Objective - Vital Signs Vital signs: Vital Signs Temp 98.7 F 10/18/21 04:56 Pulse 84 10/18/21 04:56 Resp 16 10/18/21 09:36 BP 143/72 10/18/21 04:56 Pulse Ox 97 10/18/21 04:56 FiO2 40 10/03/21 08:15 Intake & Output 10/17/21 10/18/21 10/18/21 18:59 06:59 18:59 Intake Total 100 Output Total 1700 1600 1050 Balance -1700 -1500 -1050 Intake: Intake, IV Titration 100 Amount Piperacillin-Tazobactam 3 100 .375 gm In Sodium Chloride 0.9% 100 ml @ 25 mls/hr IVPB Q8HR [facility] Rx# :[id number] Output: Urine 1700 1600 Post Void Residual 750 Stool 300 Other: Voiding Method Toilet Toilet Toilet External Catheter - Labs CBC & Chem 7: 10/16/21 05:35 10/18/21 06:25 Labs: Abnormal Lab Results - Last 24 Hours (Table) 10/17/21 10/17/21 10/18/21 Range/Units 17:08 21:11 06:25 Carbon Dioxide 33.9 H (20.0-27.5) mmol/L Anion Gap 9.10 L (10.00-18.00) mmol/L BUN 6.3 L (9.0-27.0) mg/dL BUN/Creatinine Ratio 9.00 L (12.00-20.00) Ratio POC Glucose (mg/dL) 117 H 110 H (75-99) mg/dL Calcium 8.5 L (8.7-10.3) mg/dL 10/18/21 Range/Units 11:35 Carbon Dioxide (20.0-27.5) mmol/L Anion Gap (10.00-18.00) mmol/L BUN (9.0-27.0) mg/dL BUN/Creatinine Ratio (12.00-20.00) Ratio POC Glucose (mg/dL) 125 H (75-99) mg/dL Calcium (8.7-10.3) mg/dL
[2021-10-18 17:27] LABS: Glucose,Whole Blood 108 mg/dL (75-99)
[2021-10-18] MEDS: ATORVASTATIN 40 MG TAB PO SCH (21:49)
--- NOTE | 2021-10-18 21:50 | P.PN ---
Progress Note - Text Progress Note Date: 10/18/21 The patient is voiding without difficulty. Her urinary frequency has improved, and she denies gross hematuria. From a urologic standpoint, Eliquis may be resumed though she may experience hematuria given that she has a ureteral stent. She will follow up with Dr. Luevano in several weeks, at which time she will undergo office cystoscopy with stent removal.
[2021-10-18] MEDS: HYDROcodone/APAP 5-325MG 1 EACH TAB PO PRN (21:52)
[2021-10-18 21:56] LABS: Glucose,Whole Blood 107 mg/dL (75-99)
--- NOTE | 2021-10-19 00:15 | P.PN ---
Subjective 66-year-old female presents to the emergency department with a chief complaint of abdominal pain. Patient states her symptoms started 10 days ago. Describes it as generalized abdominal pain with no radiation. No back pain. She states she had intermittent nausea for the first couple days that has since resolved. No fever, chills, vomiting, or diarrhea. Normal bowel movements with last bowel movement yesterday, nonbloody. Patient has been tolerating oral intake okay however states her appetite has decreased. No burning with urination, increased urinary frequency/urgency, or blood in the urine. No chest pain or shortness of breath. Patient does have history of atrial fibrillation on Eliquis. No upper respiratory symptoms or recent sick contacts. No previous abdominal surgeries. Patient does admit to tobacco use with 90-[id number] history. She denies family history of aneurysm. CT is significant for a suspected partial large bowel obstruction secondary to eccentric bowel wall thickening of the sigmoid colon which is suspicious for primary malignancy. EKG revealed atrial fibrillation with rapid ventricular response; patient was started on IV Cardizem Patient continues to have abdominal distention and pain; no bowel movements; general surgery on board and planning to repeat abdominal x-ray with tentative plan for partial colectomy tomorrow Patient remains in atrial fibrillation with controlled ventricular response at this time; no anticoagulation therapy for anticipated surgery in next 24-48 h ours; echocardiogram reveals normal LV function and no significant valvular abnormalities; cardiology on board and recommending to continue with Lasix 20 mg daily for mild fluid overload; Resume the care of the patient 10/01/2021. Patient awake and alert. She still with abdominal complaint and pain and discomfort with no bowel movement. Surgery team are planning for exploratory laparotomy with possible diverting colostomy and possible sigmoid resection. Technical Services Coordinator team on the case also for preop evaluation and also for her A. fib. Currently rate controlled on metoprolol and oral Lasix. She is on D5 half-normal saline at 50 mL per hour, Flagyl and Zosyn. Labs look stable. 10/02/2021 Patient with sigmoid mass status post exploratory laparotomy with Sigmoid colectomy with end colostomy, Partial cystectomy, Left salpingectomy, Appendectomy, Repair of left ureterPeriod secondary to left ureteral injury during surgical resection. Patient vomited by urologist and had left ureteral repair. Currently has a Mcfarland catheter was recommendation to stay for 2 weeks. Post operatively patient got intubated. Patient currently remains on mechanical ventilation She remains on Zosyn, Eliquis on hold. Patient is started on Pepcid and subcu heparin.. She received also normal saline boluses 10/03/2021 Today patient in the ICU status post extubation. She is postoperative day #2. She still nothing by mouth, awake but very weak. Her colostomy back in a Place, no bowel movement yet. Also Mcfarland catheter with PATRICE drain with more than 200 of serosanguineous fluid. Her pathology is pending, Eliquis still on hold, patient kept on Flagyl and Zosyn and IV fluids. Patient received 1 L of normal saline for hypertension, also her metoprolol dose lowered to 25 mg. 10/04/2021 Patient clinically is improving gradually, her pain at the surgery site is country of, she is fully awake and oriented, she does not look in distress. Her colostomy tube in the left lower quadrant abdomen with some small amounts light brown stool. Mcfarland catheter in place with yellow urine. A follow-up for stent urologist recommended CT of the abdomen without contrast was showing mild positioning of the double J stent, CT urogram is ordered and is pending, neurology following closely. Other that clinically she is doing generally well, improving slowly. She kept nothing by mouth with surgery team following him closely as well. Patient's can go to the general medical floor today. Continue with Flagyl and Zosyn, D5 half-normal saline at 50 mL/h and metoprolol increased to 25 g 3 times a day today. She is also a small dose of oral Lasix while Eliquis still on hold 10/05/2021 Patient remains nothing by mouth, colostomy with no bowel movement or gas. Mcfarland catheter in place. She remains on D5 half-normal saline at 50 mL per hour She looks tired but no distress. Hemodynamically stable. Labs reviewed with WBC 8.2, creatinine 1.1. CT urogram: Extraluminal secreted IV contrast most pronounced along the left ureter with some also appearing near the distal right ureter on delayed imaging. This is favored to represent a left ureteral injury with layering in the pelvis. Right ureteral injury is not entirely exclude it.A left ureteral stent is seen. urologist on the case 10/06/2021 patient remains clinically same with no significant change, she is tired looking, she still nothing by mouth. Colostomy back still not showing bowel movements today however it has bowel movement yesterday Mcfarland catheter in place. Patient followed closely by urology service Pathology did not show final diagnosis and the specimen was sent to [facility] by pathologist for consultation. Oncology team on the case also. Continue with Zosyn, Flagyl and D5 half-normal saline at 50 mL per hour. 10/07/2021 Patient generally doing well and she is improving gradually and slowly. His morning she was still nothing by mouth but surgery team are planning to start her on diet and liquid diet today. Colostomy back is working and last time and it was last night. Mcfarland catheter in place with some dark colored urine which is expected from her recent surgery and some bleeding. Repeat chest x-ray showing pleural effusion with atelectasis. Pending pathology which is sent then [facility] for further consultation. She remains on Flagyl and Zosyn and D5 half-normal saline at 50. Eliquis on hold Subjective I am Resume the care of the patient today 10/16/2021 Patient today looks stronger and more awake and she was sitting on bed compared to last time I saw her. She is hemodynamically stable. Labs reviewed in the looks stable as well. Urologist team are following closely and the recommend to discontinue Mcfarland catheter after cystograms showing no extravasation. Urologist. Also surgery team on the board Today she became hypoxic on room air at 85%, repeat chest x-ray showing bilateral infiltrate with basilar effusion and atelectasis but pneumonia and edema cannot be excluded per radiologist however patient and Zosyn, most likely is due to fluid. We will check ultrasound of the chest. If one-time dose of Lasix. Patient is not on IV fluid. Also Eliquis is on hold for surgery team Oncology team also the case 10/17/2021 Patient improving gradually and slowly, she still generally weak, she still hypoxic on room air but she is minimally tachypneic while at rest. Chest x-ray showing fluid overload with bilateral mild to moderate pleural effusion, chest ultrasound is reviewed. Also patient with bilateral eating like edema. She received IV Lasix 1 dose yesterday and started her on 420 mg twice daily. Mcfarland catheter was discontinued by urologist and recommended follow-up as an outpatient in [address] Luevano for cystoscopy and stent removal. Also surgery team are intending to clear the patient for discharge tomorrow. Patient still Amanda is on hold. Patient will benefit from ECF upon discharge 10/18/2021 Patient is improving slowly and gradually, she is fully awake and oriented, generally she feels well, no dyspnea while at rest, no chest pain, her leg swelling is improving, she is saturating mid 90s on 2 L oxygen nasal cannula. Chest ultrasound is noted, most likely patient does not need thoracocentesis and her oxygen status is improving with IV Lasix Creatinine is stable at 0.7. Potassium and magnesium were normal. She skipped on IV Lasix 40 mg twice daily, if oxygen saturation Improving tomorrow she may be considered to change IV Lasix into oral dosing, she is kept on fluid restriction. She is also on Zosyn with wound culture growing E. coli.Bladder scan is 47 mm only urologic and surgery team on the case, Both services. The patient to resume Lasix, also some hematuria is expected but patient informed today that she will need follow-up with the urologist as an outpatient in 4 weeks to remove stent and she verbalized understanding. Plan for ECF upon discharge for rehab and patient agrees Also we will discuss with oncology team about the pathology results. Objective - Vital Signs Vital signs: Vital Signs Temp 98.7 F 10/18/21 04:56 Pulse 84 10/18/21 04:56 Resp 16 10/18/21 09:36 BP 143/72 10/18/21 04:56 Pulse Ox 97 10/18/21 04:56 FiO2 40 10/03/21 08:15 Intake & Output 10/17/21 10/18/21 10/18/21 18:59 06:59 18:59 Intake Total 100 Output Total 1700 1600 1050 Balance -1700 -1500 -1050 Intake: Intake, IV Titration 100 Amount Piperacillin-Tazobactam 3 100 .375 gm In Sodium Chloride 0.9% 100 ml @ 25 mls/hr IVPB Q8HR [facility] Rx# :[id number] Output: Urine 1700 1600 Post Void Residual 750 Stool 300 Other: Voiding Method Toilet Toilet Toilet External Catheter - Exam GENERAL: The patient is alert and oriented x3, not in any acute distress. Well developed, well nourished. HEENT: Pupils are round and equally reacting to light. EOMI. No scleral icterus. No conjunctival pallor. Normocephalic, atraumatic. No pharyngeal erythema. No thyromegaly. CARDIOVASCULAR: S1 and S2 present. No murmurs, rubs, or gallops. PULMONARY: Chest is clear to auscultation, no wheezing or crackles. -ABDOMEN: Soft, mild generalized tenderness and mild generalized distention, normoactive bowel sounds. No palpable organomegaly. Colostomy tube in place, Mcfarland catheter MUSCULOSKELETAL: No joint swelling or deformity. EXTREMITIES: No cyanosis, clubbing, or pedal edema. NEUROLOGICAL: Gross neurological examination did not reveal any focal deficits. SKIN: No rashes. no petechiae. - Labs CBC & Chem 7: 10/16/21 05:35 10/18/21 06:25 Labs: Abnormal Lab Results - Last 24 Hours (Table) 10/17/21 10/17/21 Range/Units 17:08 21:11 POC Glucose (mg/dL) 117 H 110 H (75-99) mg/dL Assessment and Plan Assessment: -Sigmoid wall thickening suspicious for sigmoid months with partial colon obstruction. status post exploratory laparotomy with Sigmoid colectomy with end colostomy, Partial cystectomy, Left salpingectomy, Appendectomy, Repair of left ureterPeriod secondary to left ureteral injury during surgical resection -A. fib and RVR. -Hypertension -Hyperlipidemia -History of COPD, not in activation Plan: this is a pleasant 66 years old female. Going for bowel surgery for her possible colon mass. Also with A. fib. Continue with Zosyn Continue Lasix 40 mg twice a day, mentions a total dose in 1-2 days if oxygen saturation improves Surgery team on the case. Pathology sent to [facility]: Follow-up results oncology team on the [facility] Cardiology team on the case, and Pulmonary team consult have already evaluated the patient urology team on the case, Recommend to discontinue Mcfarland catheter Labs and medication were reviewed.. Continue same treatment. Continue with symptomatic treatment. Resume home medication. Monitor lytes and vitals. DVT and GI prophylaxis. Further recommendations as per clinical course of the patient DVT prophylaxis: Eliquis is resumed GI Prophylaxis: Pepcid PT/OT recommended rehab
[2021-10-19] MEDS: PIPERACILLIN-TAZOBACTAM 3.375 GM in SODIUM CHLORIDE 0.9% 100 ML IVPB SCH ×3 (00:29→17:12)
[2021-10-19 07:24] LABS: Glucose,Whole Blood 102 mg/dL (75-99)
[2021-10-19] MEDS: INSULIN ASPART (NovoLOG) 100 UNIT/ML VIAL SQ SCH (07:32)
[2021-10-19] MEDS: METOPROLOL TARTRATE 25 MG TAB PO SCH ×3 (08:33→21:02)
[2021-10-19] MEDS: APIXABAN 5 MG TAB PO SCH ×2 (08:33→21:01)
[2021-10-19] MEDS: FAMOTIDINE 20 MG TAB PO SCH ×2 (08:33→21:02)
[2021-10-19] MEDS: MAGNESIUM OXIDE 400 MG TAB PO SCH (08:33)
[2021-10-19] MEDS: methocarbamoL 750 MG TAB PO SCH ×3 (08:33→21:02)
[2021-10-19] MEDS: HYDROcodone/APAP 5-325MG 1 EACH TAB PO PRN (08:33)
[2021-10-19] MEDS: DIGOXIN 125 MCG TAB PO SCH (08:34)
[2021-10-19 08:49] LABS: Basophils # (A) 0.06 X 10*3/uL (0.00-0.10); Eosinophils % (A) 4.8 %; HCT 30.4 % (37.2-46.3); HGB 9.3 g/dL (12.0-15.0); Immature Grans, Automated 0.6 %; Lymphocytes # (A) 1.38 X 10*3/uL (0.90-5.00); MCH 31.4 pg (27.0-32.0); MCHC 30.6 g/dL (32.0-37.0); MCV 102.7 fL (80.0-97.0); Mean Platelet Volume 9.2 fL (9.5-12.2); Monocytes # (A) 0.65 X 10*3/uL (0.20-1.00); Monocytes % (A) 10.4 %; NRBC Per 100 WBC 0 /100 WBCS (0.0-0.0); Neutrophils # (A) 3.84 X 10*3/uL (1.80-7.70); Neutrophils % (A) 61.2 %; Platelet Count 431 X 10*3/uL (140-440); RBC 2.96 X 10*6/uL (4.10-5.20); RDW 14.7 % (11.5-14.5); WBC 6.27 X 10*3/uL (4.50-10.00)
[2021-10-19] MEDS: FUROSEMIDE 10 MG/ML 4 ML VIAL IV SCH ×2 (09:34→21:02)
[2021-10-19 10:02] LABS: African American GFR (CKD) 87.8 (60.0-200.0); Anion Gap 8.9 mmol/L (10.00-18.00); BUN/Creat Ratio 9.5 Ratio (12.00-20.00); Blood Urea Nitrogen 7.6 mg/dL (9.0-27.0); Calcium 8.6 mg/dL (8.7-10.3); Carbon Dioxide 33.1 mmol/L (20.0-27.5); Non-African American GFR(CKD) 75.8 (60.0-200.0); Potassium 3.7 mmol/L (3.5-5.5)
--- NOTE | 2021-10-19 15:07 | P.PN ---
Subjective Progress Note Date: 10/19/21 CHIEF COMPLAINT: Sigmoid colon tumor HISTORY OF PRESENT ILLNESS: Patient is status post exploratory laparotomy, sigmoid colectomy with end colostomy, partial cystectomy, left salpingectomy, appendectomy and repair of left ureter on 10/01/21. Patient sitting up at bedside chair. She reports her pain is controlled. Her ostomy is functioning. She has been restarted on the Eliquis. Patient remains on IV Lasix for bilateral pleural effusions. She's currently on room air. Ostomy nurse has changed gaby ent's appliance as well as continuing the local wound care at the stoma. Please refer to her documentation for the measurements. Otherwise it appears to be about the same. Afebrile. WBC is 6.27 Hgb 9.3 plt 431 sodium 143 potassium 3.7 creatinine 0.8 and CA-125 elevated at 115 patient following up with oncology. Patient seen and examined with Dr. sams EXAM: VITAL SIGNS: Reviewed. GENERAL: Well-developed in no acute distress. HEENT: No sclera icterus. Extraocular movements grossly intact. Moist buccal mucosa. Head is atraumatic, normocephalic. ABDOMEN: Soft. nondistended. Ostomy functioning. Abdominal incision packed with aquacel silver packing. Incision continues to show improvement. Area of separation at the medial aspect of the Soma appears felt the same size. There is healthy granulation tissue noted there is a small scabbed area brownish in color at the medial aspect of area. Stoma is red and healthy. NEUROLOGIC: Alert and oriented. Cranial nerves II through XII grossly intact. ASSESSMENT: 1. 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 Infection at abdominal incision site PLAN: -Continue local wound care to abdominal incision and ostomy -Continue Zosyn -At time of discharge we'll transition patient to oral Levaquin for 10 days -Continue low fiber Diet -Encourage patient to ambulate and increase activity -Encourage patient to use incentive spirometer -Pleural effusion management per medicine service Physician Switchboard Wirer note has been reviewed by physician. Signing provider agrees with the documented findings, assessment, and plan of care. Objective - Vital Signs Vital signs: Vital Signs Temp 97.5 F L 10/19/21 12:32 Pulse 82 10/19/21 12:32 Resp 18 10/19/21 12:32 BP 109/59 10/19/21 12:32 Pulse Ox 90 L 10/19/21 12:32 FiO2 40 10/03/21 08:15 Intake & Output 10/18/21 10/19/21 10/19/21 18:59 06:59 18:59 Intake Total 120 100 240 Output Total 1050 1400 Balance -930 -1300 240 Intake: Intake, IV Titration 100 Amount Piperacillin-Tazobactam 3 100 .375 gm In Sodium Chloride 0.9% 100 ml @ 25 mls/hr IVPB Q8HR [facility] Rx# :[id number] Oral 120 240 Output: Urine 1400 Post Void Residual 750 Stool 300 Other: Voiding Method Toilet Toilet External Catheter External Catheter - Labs CBC & Chem 7: 10/19/21 05:48 10/19/21 05:48 Labs: Abnormal Lab Results - Last 24 Hours (Table) 10/18/21 10/18/21 10/19/21 Range/Units 17:25 21:55 05:48 RBC 2.96 L (4.10-5.20) X 10*6/uL Hgb 9.3 L (12.0-15.0) g/dL Hct 30.4 L (37.2-46.3) % MCV 102.7 H (80.0-97.0) fL MCHC 30.6 L (32.0-37.0) g/dL RDW 14.7 H (11.5-14.5) % MPV 9.2 L (9.5-12.2) fL Carbon Dioxide (20.0-27.5) mmol/L Anion Gap (10.00-18.00) mmol/L BUN (9.0-27.0) mg/dL BUN/Creatinine Ratio (12.00-20.00) Ratio POC Glucose (mg/dL) 108 H 107 H (75-99) mg/dL Calcium (8.7-10.3) mg/dL 10/19/21 10/19/21 Range/Units 05:48 07:22 RBC (4.10-5.20) X 10*6/uL Hgb (12.0-15.0) g/dL Hct (37.2-46.3) % MCV (80.0-97.0) fL MCHC (32.0-37.0) g/dL RDW (11.5-14.5) % MPV (9.5-12.2) fL Carbon Dioxide 33.1 H (20.0-27.5) mmol/L Anion Gap 8.90 L (10.00-18.00) mmol/L BUN 7.6 L (9.0-27.0) mg/dL BUN/Creatinine Ratio 9.50 L (12.00-20.00) Ratio POC Glucose (mg/dL) 102 H (75-99) mg/dL Calcium 8.6 L (8.7-10.3) mg/dL
[2021-10-19] MEDS: ATORVASTATIN 40 MG TAB PO SCH (21:02)
[2021-10-20] MEDS: PIPERACILLIN-TAZOBACTAM 3.375 GM in SODIUM CHLORIDE 0.9% 100 ML IVPB SCH ×4 (00:48→23:20)
[2021-10-20] MEDS: METOPROLOL TARTRATE 25 MG TAB PO SCH ×3 (07:24→22:02)
[2021-10-20] MEDS: FUROSEMIDE 40 MG TAB PO SCH (07:24)
[2021-10-20] MEDS: APIXABAN 5 MG TAB PO SCH ×2 (07:24→20:13)
[2021-10-20] MEDS: MAGNESIUM OXIDE 400 MG TAB PO SCH (07:24)
[2021-10-20] MEDS: FAMOTIDINE 20 MG TAB PO SCH ×2 (07:25→20:13)
[2021-10-20] MEDS: DIGOXIN 125 MCG TAB PO SCH (07:25)
[2021-10-20] MEDS: methocarbamoL 750 MG TAB PO SCH ×3 (07:25→22:02)
--- NOTE | 2021-10-20 12:48 | P.PN ---
Subjective Progress Note Date: 10/20/21 CHIEF COMPLAINT: Sigmoid tumor consistent with diverticulitis HISTORY OF PRESENT ILLNESS: The patient is a 66-year-old female with complicated surgical history including laparotomy, sigmoid colectomy, repair of left ureter. Mcfarland catheter has been discontinued by urology. Patient has fair spirits. She is tolerating diet. No new increased abdominal pain. ROS: No reports of nausea and vomiting. No fevers or chills. No new chest pain. PHYSICAL EXAM: VITAL SIGNS: Reviewed CONSTITUTIONAL: Well developed and in no acute distress. EYES: Conjuctivae without sclera icterus. Extraocular movements grossly intact. HEAD, EARS, NOSE, THROAT: Moist buccal mucosa. Head is atraumatic, normocephal ic. Hears conversational speech. No nasal drainage. Wears dentures. RESPIRATORY: Non-labored respirations and equal bilateral excursions. CARDIOVASCULAR: Palpable 2+ radial pulses. ABDOMEN: Ostomy function was stool and flatus. Midline dressing intact. MUSCULOSKELETAL: No gross deformity of the lower extremities noted. No clubbing. No cyanosis. SKIN: Good skin turgor. Well perfused. NEUROLOGIC: Cranial nerves II through XII grossly intact. No focal or lateralizing signs. PSYCH: Appropriate affect. Alert and oriented to person, place and time. CLINICAL LABS: Reviewed. WBC normal 6.27, yesterday. Creatinine normal 0.8. PATH: Final pathology revealed consistent with diverticulitis. ASSESSMENT: 1. Sigmoid tumor 2. Hematuria, resolved 3. Anemia 4. Complications of ostomy PLAN: 1. Continue local wound care. 2. Diet as tolerated. 3. Patient is getting scheduled diuresis. 4. Continue IV antibiotics Objective - Vital Signs Vital signs: Vital Signs Temp 97.9 F 10/20/21 05:00 Pulse 77 10/20/21 05:00 Resp 18 10/20/21 05:00 BP 129/70 10/20/21 05:00 Pulse Ox 92 L 10/20/21 05:00 FiO2 40 10/03/21 08:15 Intake & Output 10/19/21 10/20/21 10/20/21 18:59 06:59 18:59 Intake Total 440 50 Output Total 500 Balance -60 50 Weight 57 kg Intake: Intake, IV Titration 200 50 Amount Piperacillin-Tazobactam 3 200 50 .375 gm In Sodium Chloride 0.9% 100 ml @ 25 mls/hr IVPB Q8HR [facility] Rx# :[id number] Oral 240 Output: Stool 500 Other: Voiding Method Toilet External Catheter # Voids 5 - Labs CBC & Chem 7: 10/19/21 05:48 10/19/21 05:48
--- NOTE | 2021-10-20 20:01 | P.PN ---
Subjective Progress Note Date: 10/19/21 Principal diagnosis: Atrial fibrillation with RVR Abdominal pain/partial bowel obstruction Mild renal insufficiency/dehydration 66-year-old female presents to the emergency department with a chief complaint of abdominal pain. Patient states her symptoms started 10 days ago. Describes it as generalized abdominal pain with no radiation. No back pain. She states she had intermittent nausea for the first couple days that has since resolved. No fever, chills, vomiting, or diarrhea. Normal bowel movements with last bowel movement yesterday, nonbloody. Patient has been tolerating oral intake okay however states her appetite has decreased. No burning with urination, increased urinary frequency/urgency, or blood in the urine. No chest pain or shortness of breath. Patient does have history of atrial fibrillation on Eliquis. No upper respiratory symptoms or recent sick contacts. No previous abdominal surgeries. 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 She denies family history of aneurysm. CT is significant for a suspected partial large bowel obstruction secondary to eccentric bowel wall thickening of the sigmoid colon which is suspicious for primary malignancy. EKG revealed atrial fibrillation with rapid ventricular response; patient was started on IV Cardizem Patient continues to have abdominal distention and pain; no bowel movements; general surgery on board and planning to repeat abdominal x-ray with tentative plan for partial colectomy tomorrow Patient remains in atrial fibrillation with controlled ventricular response at this time; no anticoagulation therapy for anticipated surgery in next 24-48 hours; echocardiogram reveals normal LV function and no significant valvular a bnormalities; cardiology on board and recommending to continue with Lasix 20 mg daily for mild fluid overload; Patient has undergone laparotomy, sigmoid colectomy and repair of left ureter for resection of sigmoid tumor; hematuria has resolved; local wound treatment per surgery discretion Objective - Vital Signs Vital signs: Vital Signs Temp 97.5 F L 10/19/21 12:32 Pulse 82 10/19/21 12:32 Resp 18 10/19/21 12:32 BP 109/59 10/19/21 12:32 Pulse Ox 90 L 10/19/21 12:32 FiO2 40 10/03/21 08:15 Intake & Output 10/18/21 10/19/21 10/19/21 18:59 06:59 18:59 Intake Total 120 100 240 Output Total 1050 1400 Balance -930 -1300 240 Intake: Intake, IV Titration 100 Amount Piperacillin-Tazobactam 3 100 .375 gm In Sodium Chloride 0.9% 100 ml @ 25 mls/hr IVPB Q8HR [facility] Rx# :[id number] Oral 120 240 Output: Urine 1400 Post Void Residual 750 Stool 300 Other: Voiding Method Toilet Toilet External Catheter External Catheter - Exam GENERAL: The patient is alert and oriented x3, not in any acute distress. Well developed, well nourished. HEENT: Pupils are round and equally reacting to light. EOMI. No scleral icterus. No conjunctival pallor. Normocephalic, atraumatic. No pharyngeal erythema. No thyromegaly. CARDIOVASCULAR: S1 and S2 present. No murmurs, rubs, or gallops. PULMONARY: Chest is clear to auscultation, no wheezing or crackles. ABDOMEN: Soft, nontender, nondistended, normoactive bowel sounds. No palpable organomegaly. MUSCULOSKELETAL: No joint swelling or deformity. EXTREMITIES: No cyanosis, clubbing, or pedal edema. NEUROLOGICAL: Gross neurological examination did not reveal any focal deficits. SKIN: No rashes. - Labs CBC & Chem 7: 10/19/21 05:48 10/19/21 05:48 Labs: Abnormal Lab Results - Last 24 Hours (Table) 10/18/21 10/18/21 10/19/21 Range/Units 17:25 21:55 05:48 RBC 2.96 L (4.10-5.20) X 10*6/uL Hgb 9.3 L (12.0-15.0) g/dL Hct 30.4 L (37.2-46.3) % MCV 102.7 H (80.0-97.0) fL MCHC 30.6 L (32.0-37.0) g/dL RDW 14.7 H (11.5-14.5) % MPV 9.2 L (9.5-12.2) fL Carbon Dioxide (20.0-27.5) mmol/L Anion Gap (10.00-18.00) mmol/L BUN (9.0-27.0) mg/dL BUN/Creatinine Ratio (12.00-20.00) Ratio POC Glucose (mg/dL) 108 H 107 H (75-99) mg/dL Calcium (8.7-10.3) mg/dL 10/19/21 10/19/21 Range/Units 05:48 07:22 RBC (4.10-5.20) X 10*6/uL Hgb (12.0-15.0) g/dL Hct (37.2-46.3) % MCV (80.0-97.0) fL MCHC (32.0-37.0) g/dL RDW (11.5-14.5) % MPV (9.5-12.2) fL Carbon Dioxide 33.1 H (20.0-27.5) mmol/L Anion Gap 8.90 L (10.00-18.00) mmol/L BUN 7.6 L (9.0-27.0) mg/dL BUN/Creatinine Ratio 9.50 L (12.00-20.00) Ratio POC Glucose (mg/dL) 102 H (75-99) mg/dL Calcium 8.6 L (8.7-10.3) mg/dL Assessment and Plan Assessment: 1. Atrial fibrillation with RVR; patient has been evaluated by cardiology; IV Cardizem was discontinued and patient is recommended to be placed on increased dose of metoprolol and continue with anticoagulation therapy; 2-D echo is ordered 2. Abdominal pain/partial bowel obstruction; CT of the abdomen revealed suspected partial large bowel obstruction secondary to eccentric bowel wall thickening of sigmoid colon which is suspicious for primary malignancy 3. Mild renal insufficiency/dehydration; IV fluid hydration with normal saline at rate of 75 mL; we will monitor strict MEGHAN's, renal function and electrolytes; avoid nephrotoxins and hypotension 4. Hypertension; metoprolol 50 mg by mouth twice a day 5. Hyperlipidemia; Lipitor 40 mg by mouth daily at bedtime 6. COPD; not in exacerbation DVT prophylaxis; SCDs/systemic anticoagulation CODE STATUS; full code
--- NOTE | 2021-10-20 20:04 | P.PN ---
Subjective Principal diagnosis: Atrial fibrillation with RVR Abdominal pain/partial bowel obstruction Mild renal insufficiency/dehydration 66-year-old female presents to the emergency department with a chief complaint of abdominal pain. Patient states her symptoms started 10 days ago. Describes it as generalized abdominal pain with no radiation. No back pain. She states she had intermittent nausea for the first couple days that has since resolved. No fever, chills, vomiting, or diarrhea. Normal bowel movements with last bowel movement yesterday, nonbloody. Patient has been tolerating oral intake okay however states her appetite has decreased. No burning with urination, increased urinary frequency/urgency, or blood in the urine. No chest pain or shortness of breath. Patient does have history of atrial fibrillation on Eliquis. No upper respiratory symptoms or recent sick contacts. No previous ab dominal surgeries. Patient does admit to tobacco use with [id number] history. She denies family history of aneurysm. CT is significant for a suspected partial large bowel obstruction secondary to eccentric bowel wall thickening of the sigmoid colon which is suspicious for primary malignancy. EKG revealed atrial fibrillation with rapid ventricular response; patient was started on IV Cardizem Patient continues to have abdominal distention and pain; no bowel movements[facility] and planning to repeat abdominal x-ray with tentative plan for partial colectomy tomorrow Patient remains in atrial fibrillation with controlled ventricular response at this time; no anticoagulation therapy for anticipated surgery in next 24-48 hours; echocardiogram reveals normal LV function and no significant valvular abnormalities; cardiology on board and recommending to continue with Lasix 20 mg daily for mild fluid overload; Patient has undergone laparotomy, sigmoid colectomy and repair of left ureter for resection of sigmoid tumor; hematuria has resolved; local wound treatment per surgery discretion 10/20/2021 Patient is seen and evaluated in room at bedside; denies any complaint of nausea vomiting Vital signs are reviewed and remained stable Patient has been started on a diet and is tolerating well; no complaining of nausea vomiting Patient has been following with physical therapy and is recommending subacute rehab to increase strength and functional mobility Objective - Vital Signs Vital signs: Vital Signs Temp 98.1 F 10/20/21 13:00 Pulse 83 10/20/21 13:00 Resp 18 10/20/21 13:00 BP 114/65 10/20/21 13:00 Pulse Ox 91 L 10/20/21 13:00 FiO2 40 05/11/22 08:15 Intake & Output 10/19/21 10/20/21 10/20/21 18:59 06:59 18:59 Intake Total 440 50 Output Total 500 Balance -60 50 Weight 57 kg Intake: Intake, IV Titration 200 50 Amount Piperacillin-Tazobactam 3 200 50 .375 gm In Sodium Chloride 0.9% 100 ml @ 25 mls/hr IVPB Q8HR [facility] Rx# :[id number] Oral 240 Output: Stool 500 Other: Voiding Method Toilet External Catheter # Voids 5 - Exam GENERAL: The patient is alert and oriented x3, not in any acute distress. Well developed, well nourished. HEENT: Pupils are round and equally reacting to light. EOMI. No scleral icterus. No conjunctival pallor. Normocephalic, atraumatic. No pharyngeal erythema. No thyromegaly. CARDIOVASCULAR: S1 and S2 present. No murmurs, rubs, or gallops. PULMONARY: Chest is clear to auscultation, no wheezing or crackles. ABDOMEN: Soft, nontender, nondistended, normoactive bowel sounds. No palpable organomegaly. MUSCULOSKELETAL: No joint swelling or deformity. EXTREMITIES: No cyanosis, clubbing, or pedal edema. NEUROLOGICAL: Gross neurological examination did not reveal any focal deficits. SKIN: No rashes. - Labs CBC & Chem 7: 10/19/21 05:48 10/19/21 05:48 Assessment and Plan Assessment: 1. Atrial fibrillation with RVR; patient has been evaluated by cardiology; IV Cardizem was discontinued and patient is recommended to be placed on increased dose of metoprolol and continue with anticoagulation therapy; 2-D echo is ordered 2. Abdominal pain/partial bowel obstruction; CT of the abdomen revealed suspected partial large bowel obstruction secondary to eccentric bowel wall thickening of sigmoid colon which is suspicious for primary malignancy 3. Mild renal insufficiency/dehydration; IV fluid hydration with normal saline at rate of 75 mL; we will monitor strict MEGHAN's, renal function and electrolytes; avoid nephrotoxins and hypotension 4. Hypertension; metoprolol 50 mg by mouth twice a day 5. Hyperlipidemia; Lipitor 40 mg by mouth daily at bedtime 6. COPD; not in exacerbation DVT prophylaxis; SCDs/systemic anticoagulation CODE STATUS; full code
[2021-10-20] MEDS: ATORVASTATIN 40 MG TAB PO SCH (20:13)
[2021-10-21] MEDS: PIPERACILLIN-TAZOBACTAM 3.375 GM in SODIUM CHLORIDE 0.9% 100 ML IVPB SCH ×2 (07:02→15:55)
[2021-10-21] MEDS: APIXABAN 5 MG TAB PO SCH ×2 (07:03→21:38)
[2021-10-21] MEDS: METOPROLOL TARTRATE 25 MG TAB PO SCH ×3 (07:03→21:38)
[2021-10-21] MEDS: FUROSEMIDE 40 MG TAB PO SCH (07:03)
[2021-10-21] MEDS: FAMOTIDINE 20 MG TAB PO SCH ×2 (07:03→21:38)
[2021-10-21] MEDS: MAGNESIUM OXIDE 400 MG TAB PO SCH (07:03)
[2021-10-21] MEDS: DIGOXIN 125 MCG TAB PO SCH (07:04)
[2021-10-21] MEDS: methocarbamoL 750 MG TAB PO SCH ×3 (07:04→21:38)
[2021-10-21 09:13] LABS: African American GFR (CKD) 76.6 (60.0-200.0); Anion Gap 9.6 mmol/L (10.00-18.00); BUN/Creat Ratio 9.73 Ratio (12.00-20.00); Blood Urea Nitrogen 8.7 mg/dL (9.0-27.0); Calcium 8.5 mg/dL (8.7-10.3); Carbon Dioxide 26.9 mmol/L (20.0-27.5); Non-African American GFR(CKD) 66.1 (60.0-200.0); Potassium 3.7 mmol/L (3.5-5.5)
[2021-10-21 09:20] LABS: Basophils # (A) 0.06 X 10*3/uL (0.00-0.10); Basophils % (A) 0.9 %; Eosinophils % (A) 6.2 %; HCT 29.8 % (37.2-46.3); HGB 8.9 g/dL (12.0-15.0); Immature Grans, Automated 0.9 %; Lymphocytes # (A) 1.39 X 10*3/uL (0.90-5.00); Lymphocytes % (A) 21.4 %; MCH 30.8 pg (27.0-32.0); MCHC 29.9 g/dL (32.0-37.0); MCV 103.1 fL (80.0-97.0); Mean Platelet Volume 9.3 fL (9.5-12.2); Monocytes # (A) 0.74 X 10*3/uL (0.20-1.00); Monocytes % (A) 11.4 %; NRBC Per 100 WBC 0 /100 WBCS (0.0-0.0); Neutrophils # (A) 3.84 X 10*3/uL (1.80-7.70); Neutrophils % (A) 59.2 %; Platelet Count 370 X 10*3/uL (140-440); RBC 2.89 X 10*6/uL (4.10-5.20); RDW 14.8 % (11.5-14.5); WBC 6.49 X 10*3/uL (4.50-10.00)
--- NOTE | 2021-10-21 13:25 | P.PN ---
Subjective Progress Note Date: 10/21/21 CHIEF COMPLAINT: Sigmoid tumor consistent with diverticulitis HISTORY OF PRESENT ILLNESS: The patient is a 66-year-old female with complicated surgical history including laparotomy, sigmoid colectomy, repair of left ureter. She is tolerating lunch with mash potatoes, corn, roast beef. No reports of abdominal pain. ROS: No reports of nausea and vomiting. No fevers or chills. No new chest pain. PHYSICAL EXAM: VITAL SIGNS: Reviewed CONSTITUTIONAL: Well developed and in no acute distress. EYES: Conjuctivae without sclera icterus. Extraocular movements grossly intact. HEAD, EARS, NOSE, THROAT: Moist buccal mucosa. Head is atraumatic, normocephalic. Hears conversational speech. No nasal drainage. Wears dentures. RESPIRATORY: Non-labored respirations and equal bilateral excursions. CARDIOVASCULAR: Palpable 2+ radial pulses. ABDOMEN: Ostomy functioning. Dressing intact. MUSCULOSKELETAL: No gross deformity of the lower extremities noted. No clubbing. No cyanosis. SKIN: Good skin turgor. Well perfused. NEUROLOGIC: Cranial nerves II through XII grossly intact. No focal or l ateralizing signs. PSYCH: Appropriate affect. Alert and oriented to person, place and time. CLINICAL LABS: Reviewed. WBC normal. Creatinine normal 0.9. PATH: Final pathology revealed consistent with diverticulitis. ASSESSMENT: 1. Sigmoid tumor 2. Hematuria, resolved 3. Anemia 4. Complications of ostomy PLAN: 1. Diet as tolerated. 2. Continue IV antibiotic Objective - Vital Signs Vital signs: Vital Signs Temp 98.0 F 10/21/21 06:50 Pulse 87 10/21/21 06:50 Resp 18 10/21/21 06:50 BP 147/60 10/21/21 06:50 Pulse Ox 93 L 10/21/21 06:50 FiO2 40 10/03/21 08:15 Intake & Output 10/20/21 10/21/21 10/21/21 18:59 06:59 18:59 Intake Total 100 Balance 100 Weight 57.1 kg Intake: Intake, IV Titration 100 Amount Piperacillin-Tazobactam 3 100 .375 gm In Sodium Chloride 0.9% 100 ml @ 25 mls/hr IVPB Q8HR [facility] Rx# :[id number] Other: Voiding Method Bedside Commode External Catheter # Voids 2 # Bowel Movements 1 - Labs CBC & Chem 7: 10/21/21 05:51 10/21/21 05:51 Labs: Abnormal Lab Results - Last 24 Hours (Table) 10/21/21 10/21/21 Range/Units 05:51 05:51 RBC 2.89 L (4.10-5.20) X 10*6/uL Hgb 8.9 L (12.0-15.0) g/dL Hct 29.8 L (37.2-46.3) % MCV 103.1 H (80.0-97.0) fL MCHC 29.9 L (32.0-37.0) g/dL RDW 14.8 H (11.5-14.5) % MPV 9.3 L (9.5-12.2) fL Immature Gran # 0.06 H (0.00-0.04) X 10*3/uL Eosinophils # 0.40 H (0.04-0.35) X 10*3/uL Anion Gap 9.60 L (10.00-18.00) mmol/L BUN 8.7 L (9.0-27.0) mg/dL BUN/Creatinine Ratio 9.73 L (12.00-20.00) Ratio Calcium 8.5 L (8.7-10.3) mg/dL
[2021-10-21] MEDS: HYDROcodone/APAP 5-325MG 1 EACH TAB PO PRN (15:56)
--- NOTE | 2021-10-21 20:35 | P.PN ---
Subjective Progress Note Date: 10/21/21 Principal diagnosis: Atrial fibrillation with RVR Abdominal pain/partial bowel obstruction Mild renal insufficiency/dehydration 66-year-old female presents to the emergency department with a chief complaint of abdominal pain. Patient states her symptoms started 10 days ago. Describes it as generalized abdominal pain with no radiation. No back pain. She states she had intermittent nausea for the first couple days that has since resolved. No fever, chills, vomiting, or diarrhea. Normal bowel movements with last bowel movement yesterday, nonbloody. Patient has been tolerating oral intake okay however states her appetite has decreased. No burning with urination, increased urinary frequency/urgency, or blood in the urine. No chest pain or shortness of breath. Patient does have history of atrial fibrillation on Eliquis. No upper respiratory symptoms or recent sick contacts. No previous abdominal surgeries. Patient does admit to tobacco use with [id number] history. She denies family history of aneurysm. CT is significant for a suspected partial large bowel obstruction secondary to eccentric bowel wall thickening of the sigmoid colon which is suspicious for primary malignancy. EKG revealed atrial fibrillation with rapid ventricular response; patient was started on IV Cardizem Patient continues to have abdominal distention and pain; no bowel movements; general surgery on board and planning to repeat abdominal x-ray with tentative plan for partial colectomy tomorrow Patient remains in atrial fibrillation with controlled ventricular response at this time; no anticoagulation therapy for anticipated surgery in next 24-48 hours; echocardiogram reveals normal LV function and no significant valvular a bnormalities; cardiology on board and recommending to continue with Lasix 20 mg daily for mild fluid overload; Patient has undergone laparotomy, sigmoid colectomy and repair of left ureter for resection of sigmoid tumor; hematuria has resolved; local wound treatment per surgery discretion 10/20/2021 Patient is seen and evaluated in room at bedside; denies any complaint of nausea vomiting Vital signs are reviewed and remained stable Patient has been started on a diet and is tolerating well; no complaining of nausea vomiting Patient has been following with physical therapy and is recommending subacute rehab to increase strength and functional mobility 10/21/2021 Patient is seen and evaluated resting comfortably; denies any specific compl aints; is able to tolerate diet Hematuria is resolved Vital signs are reviewed and stable Patient remains on IV antibiotics; general surgery on board Patient to be discharged to subacute rehab once clinically stable Objective - Vital Signs Vital signs: Vital Signs Temp 97.6 F 10/21/21 13:00 Pulse 80 10/21/21 13:00 Resp 16 10/21/21 13:00 BP 119/66 10/21/21 13:00 Pulse Ox 94 L 10/21/21 13:00 FiO2 40 10/03/21 08:15 Intake & Output 10/20/21 10/21/21 10/21/21 18:59 06:59 18:59 Intake Total 100 Balance 100 Weight 57.1 kg Intake: Intake, IV Titration 100 Amount Piperacillin-Tazobactam 3 100 .375 gm In Sodium Chloride 0.9% 100 ml @ 25 mls/hr IVPB Q8HR [facility] Rx# :[id number] Other: Voiding Method Bedside Commode External Catheter # Voids 2 # Bowel Movements 1 - Exam GENERAL: The patient is alert and oriented x3, not in any acute distress. Well developed, well nourished. HEENT: Pupils are round and equally reacting to light. EOMI. No scleral icterus. No conjunctival pallor. Normocephalic, atraumatic. No pharyngeal erythema. No thyromegaly. CARDIOVASCULAR: S1 and S2 present. No murmurs, rubs, or gallops. PULMONARY: Chest is clear to auscultation, no wheezing or crackles. ABDOMEN: Soft, nontender, nondistended, normoactive bowel sounds. No palpable organomegaly. MUSCULOSKELETAL: No joint swelling or deformity. EXTREMITIES: No cyanosis, clubbing, or pedal edema. NEUROLOGICAL: Gross neurological examination did not reveal any focal deficits. SKIN: No rashes. - Labs CBC & Chem 7: 10/21/21 05:51 10/21/21 05:51 Labs: Abnormal Lab Results - Last 24 Hours (Table) 10/21/21 10/21/21 Range/Units 05:51 05:51 RBC 2.89 L (4.10-5.20) X 10*6/uL Hgb 8.9 L (12.0-15.0) g/dL Hct 29.8 L (37.2-46.3) % MCV 103.1 H (80.0-97.0) fL MCHC 29.9 L (32.0-37.0) g/dL RDW 14.8 H (11.5-14.5) % MPV 9.3 L (9.5-12.2) fL Immature Gran # 0.06 H (0.00-0.04) X 10*3/uL Eosinophils # 0.40 H (0.04-0.35) X 10*3/uL Anion Gap 9.60 L (10.00-18.00) mmol/L BUN 8.7 L (9.0-27.0) mg/dL BUN/Creatinine Ratio 9.73 L (12.00-20.00) Ratio Calcium 8.5 L (8.7-10.3) mg/dL Assessment and Plan Assessment: 1. Atrial fibrillation with RVR; patient has been evaluated by cardiology; IV Cardizem was discontinued and patient is recommended to be placed on increased dose of metoprolol and continue with anticoagulation therapy; 2-D echo is ordered 2. Abdominal pain/partial bowel obstruction; CT of the abdomen revealed suspected partial large bowel obstruction secondary to eccentric bowel wall thickening of sigmoid colon which is suspicious for primary malignancy 3. Mild renal insufficiency/dehydration; IV fluid hydration with normal saline at rate of 75 mL; we will monitor strict MEGHAN's, renal function and electrolytes; avoid nephrotoxins and hypotension 4. Hypertension; metoprolol 50 mg by mouth twice a day 5. Hyperlipidemia; Lipitor 40 mg by mouth daily at bedtime 6. COPD; not in exacerbation DVT prophylaxis; SCDs/systemic anticoagulation CODE STATUS; full code
[2021-10-21] MEDS: ATORVASTATIN 40 MG TAB PO SCH (21:39)
[2021-10-22] MEDS: PIPERACILLIN-TAZOBACTAM 3.375 GM in SODIUM CHLORIDE 0.9% 100 ML IVPB SCH ×4 (00:42→23:17)
[2021-10-22] MEDS: METOPROLOL TARTRATE 25 MG TAB PO SCH ×3 (08:40→21:21)
[2021-10-22] MEDS: MAGNESIUM OXIDE 400 MG TAB PO SCH (08:40)
[2021-10-22] MEDS: FUROSEMIDE 40 MG TAB PO SCH (08:40)
[2021-10-22] MEDS: APIXABAN 5 MG TAB PO SCH ×2 (08:40→20:37)
[2021-10-22] MEDS: methocarbamoL 750 MG TAB PO SCH ×3 (08:41→21:21)
[2021-10-22] MEDS: DIGOXIN 125 MCG TAB PO SCH (08:41)
[2021-10-22] MEDS: FAMOTIDINE 20 MG TAB PO SCH ×2 (08:41→20:37)
--- NOTE | 2021-10-22 19:20 | P.PN ---
Subjective 66-year-old female presents to the emergency department with a chief complaint of abdominal pain. Patient states her symptoms started 10 days ago. Describes it as generalized abdominal pain with no radiation. No back pain. She states she had intermittent nausea for the first couple days that has since resolved. No fever, chills, vomiting, or diarrhea. Normal bowel movements with last bowel movement yesterday, nonbloody. Patient has been tolerating oral intake okay however states her appetite has decreased. No burning with urination, increased urinary frequency/urgency, or blood in the urine. No chest pain or shortness of breath. Patient does have history of atrial fibrillation on Eliquis. No upper respiratory symptoms or recent sick contacts. No previous abdominal surgeries. Patient does admit to tobacco use with [id number] history. She denies family history of aneurysm. CT is significant for a suspected partial large bowel obstruction secondary to eccentric bowel wall thickening of the sigmoid colon which is suspicious for primary malignancy. EKG revealed atrial fibrillation with rapid ventricular response; patient was started on IV Cardizem Patient continues to have abdominal distention and pain; no bowel movements; general surgery on board and planning to repeat abdominal x-ray with tentative plan for partial colectomy tomorrow Patient remains in atrial fibrillation with controlled ventricular response at this time; no anticoagulation therapy for anticipated surgery in next 24-48 h ours; echocardiogram reveals normal LV function and no significant valvular abnormalities; cardiology on board and recommending to continue with Lasix 20 mg daily for mild fluid overload; Resume the care of the patient 10/01/2021. Patient awake and alert. She still with abdominal complaint and pain and discomfort with no bowel movement. Surgery team are planning for exploratory laparotomy with possible diverting colostomy and possible sigmoid resection. Social Work Administrator team on the case also for preop evaluation and also for her A. fib. Currently rate controlled on metoprolol and oral Lasix. She is on D5 half-normal saline at 50 mL per hour, Flagyl and Zosyn. Labs look stable. 10/02/2021 Patient with sigmoid mass status post exploratory laparotomy with Sigmoid colectomy with end colostomy, Partial cystectomy, Left salpingectomy, Appendectomy, Repair of left ureterPeriod secondary to left ureteral injury during surgical resection. Patient vomited by urologist and had left ureteral repair. Currently has a Mcfarland catheter was recommendation to stay for 2 weeks. Post operatively patient got intubated. Patient currently remains on mechanical ventilation She remains on Zosyn, Eliquis on hold. Patient is started on Pepcid and subcu heparin.. She received also normal saline boluses 10/03/2021 Today patient in the ICU status post extubation. She is postoperative day #2. She still nothing by mouth, awake but very weak. Her colostomy back in a Place, no bowel movement yet. Also Mcfarland catheter with PATRICE drain with more than 200 of serosanguineous fluid. Her pathology is pending, Eliquis still on hold, patient kept on Flagyl and Zosyn and IV fluids. Patient received 1 L of normal saline for hypertension, also her metoprolol dose lowered to 25 mg. 10/04/2021 Patient clinically is improving gradually, her pain at the surgery site is country of, she is fully awake and oriented, she does not look in distress. Her colostomy tube in the left lower quadrant abdomen with some small amounts light brown stool. Mcfarland catheter in place with yellow urine. A follow-up for stent urologist recommended CT of the abdomen without contrast was showing mild positioning of the double J stent, CT urogram is ordered and is pending, neurology following closely. Other that clinically she is doing generally well, improving slowly. She kept nothing by mouth with surgery team following him closely as well. Patient's can go to the general medical floor today. Continue with Flagyl and Zosyn, D5 half-normal saline at 50 mL/h and metoprolol increased to 25 g 3 times a day today. She is also a small dose of oral Lasix while Eliquis still on hold 10/05/2021 Patient remains nothing by mouth, colostomy with no bowel movement or gas. Mcfarland catheter in place. She remains on D5 half-normal saline at 50 mL per hour She looks tired but no distress. Hemodynamically stable. Labs reviewed with WBC 8.2, creatinine 1.1. CT urogram: Extraluminal secreted IV contrast most pronounced along the left ureter with some also appearing near the distal right ureter on delayed imaging. This is favored to represent a left ureteral injury with layering in the pelvis. Right ureteral injury is not entirely exclude it.A left ureteral stent is seen. urologist on the case 10/06/2021 patient remains clinically same with no significant change, she is tired looking, she still nothing by mouth. Colostomy back still not showing bowel movements today however it has bowel movement yesterday Mcfarland catheter in place. Patient followed closely by urology service Pathology did not show final diagnosis and the specimen was sent to [facility] by pathologist for consultation. Oncology team on the case also. Continue with Zosyn, Flagyl and D5 half-normal saline at 50 mL per hour. 10/07/2021 Patient generally doing well and she is improving gradually and slowly. His morning she was still nothing by mouth but surgery team are planning to start her on diet and liquid diet today. Colostomy back is working and last time and it was last night. Mcfarland catheter in place with some dark colored urine which is expected from her recent surgery and some bleeding. Repeat chest x-ray showing pleural effusion with atelectasis. Pending pathology which is sent then [facility] for further consultation. She remains on Flagyl and Zosyn and D5 half-normal saline at 50. Eliquis on hold Subjective I am Resume the care of the patient today 10/16/2021 Patient today looks stronger and more awake and she was sitting on bed compared to last time I saw her. She is hemodynamically stable. Labs reviewed in the looks stable as well. Urologist team are following closely and the recommend to discontinue Mcfarland catheter after cystograms showing no extravasation. Urologist. Also surgery team on the board Today she became hypoxic on room air at 85%, repeat chest x-ray showing bilateral infiltrate with basilar effusion and atelectasis but pneumonia and edema cannot be excluded per radiologist however patient and Zosyn, most likely is due to fluid. We will check ultrasound of the chest. If one-time dose of Lasix. Patient is not on IV fluid. Also Eliquis is on hold for surgery team Oncology team also the case 10/17/2021 Patient improving gradually and slowly, she still generally weak, she still hypoxic on room air but she is minimally tachypneic while at rest. Chest x-ray showing fluid overload with bilateral mild to moderate pleural effusion, chest ultrasound is reviewed. Also patient with bilateral eating like edema. She received IV Lasix 1 dose yesterday and started her on 420 mg twice daily. Mcfarland catheter was discontinued by urologist and recommended follow-up as an outpatient in [address] Luevano for cystoscopy and stent removal. Also surgery team are intending to clear the patient for discharge tomorrow. Patient still Eliquis is on hold. Patient will benefit from ECF upon discharge 10/18/2021 Patient is improving slowly and gradually, she is fully awake and oriented, generally she feels well, no dyspnea while at rest, no chest pain, her leg swelling is improving, she is saturating mid 90s on 2 L oxygen nasal cannula. Chest ultrasound is noted, most likely patient does not need thoracocentesis and her oxygen status is improving with IV Lasix Creatinine is stable at 0.7. Potassium and magnesium were normal. She skipped on IV Lasix 40 mg twice daily, if oxygen saturation Improving tomorrow she may be considered to change IV Lasix into oral dosing, she is kept on fluid restriction. She is also on Zosyn with wound culture growing E. coli.Bladder scan is 47 mm only urologic and surgery team on the case, Both services. The patient to resume Lasix, also some hematuria is expected but patient informed today that she will need follow-up with the urologist as an outpatient in 4 weeks to remove stent and she verbalized understanding. Plan for ECF upon discharge for rehab and patient agrees Also we will discuss with oncology team about the pathology results. I am resuming the care of the patient today 10/22/2021 Patient today is fully awake and oriented, much as symptomatic, no chest pain or dyspnea, no abdominal complaints, tolerated started 12, colostomy bag is working. No diarrhea. No fever. No abdominal pain. Hemodynamically stable. Her edema and breathing significantly improved. We will lower her Lasix 40 mg down to 20 mg daily from tomorrow. She skipped on Eliquis and hemoglobin stable Also she is on Zosyn. Patient was instructed and recommended to follow-up with Dr. Carty as an outpatient and urologist and general surgeon Patient also pending placement Possible discharge in 24-48 or if she keeps improving and stable Objective - Vital Signs Vital signs: Vital Signs Temp 97.7 F 10/22/21 06:55 Pulse 83 10/22/21 06:55 Resp 16 10/22/21 06:55 BP 149/80 10/22/21 06:55 Pulse Ox 93 L 10/22/21 05:00 FiO2 40 10/03/21 08:15 Intake & Output 0510/22/21 10/22/21 18:59 06:59 18:59 Intake Total 100 Output Total 200 Balance -200 100 Weight 51 kg Intake: Intake, IV Titration 100 Amount Piperacillin-Tazobactam 3 100 .375 gm In Sodium Chloride 0.9% 100 ml @ 25 mls/hr IVPB Q8HR [facility] Rx# :[id number] Output: Stool 200 Other: Voiding Method Bedside Commode # Voids 2 - Exam GENERAL: The patient is alert and oriented x3, not in any acute distress. Well developed, well nourished. HEENT: Pupils are round and equally reacting to light. EOMI. No scleral icterus. No conjunctival pallor. Normocephalic, atraumatic. No pharyngeal erythema. No thyromegaly. CARDIOVASCULAR: S1 and S2 present. No murmurs, rubs, or gallops. PULMONARY: Chest is clear to auscultation, no wheezing or crackles. -ABDOMEN: Soft, mild generalized tenderness and mild generalized distention, normoactive bowel sounds. No palpable organomegaly. Colostomy tube in place, Mcfarland catheter MUSCULOSKELETAL: No joint swelling or deformity. EXTREMITIES: No cyanosis, clubbing, or pedal edema. NEUROLOGICAL: Gross neurological examination did not reveal any focal deficits. SKIN: No rashes. no petechiae. - Labs CBC & Chem 7: 10/21/21 05:51 10/21/21 05:51 Assessment and Plan Assessment: -Sigmoid wall thickening suspicious for sigmoid months with partial colon obstruction. status post exploratory laparotomy with Sigmoid colectomy with end colostomy, Partial cystectomy, Left salpingectomy, Appendectomy, Repair of left ureterPeriod secondary to left ureteral injury during surgical resection -A. fib and RVR. -Hypertension -Hyperlipidemia -History of COPD, not in activation Plan: this is a pleasant 66 years old female. Going for bowel surgery for her possible colon mass. Also with A. fib. Continue with Zosyn Continue Lasix 20 mg twice a day, Surgery team on the case. Pathology sent to [facility]: Follow-up results oncology team on the [place] Cardiology team on the case, and Pulmonary team consult have already evaluated the patient urology team on the case, Recommend to follow-up outpatient for stent management Labs and medication were reviewed.. Continue same treatment. Continue with symptomatic treatment. Resume home medication. Monitor lytes and vitals. DVT and GI prophylaxis. Further recommendations as per clinical course of the patient DVT prophylaxis: Eliquis is resumed GI Prophylaxis: Pepcid PT/OT recommended rehab Possible discharge in 24-48 hours
[2021-10-22] MEDS: ATORVASTATIN 40 MG TAB PO SCH (20:38)
[2021-10-23] MEDS: HYDROcodone/APAP 5-325MG 1 EACH TAB PO PRN ×2 (02:04→21:40)
--- NOTE | 2021-10-23 08:04 | P.PN ---
Subjective Progress Note Date: 10/22/21 CHIEF COMPLAINT: Sigmoid tumor consistent with diverticulitis HISTORY OF PRESENT ILLNESS: The patient is a 66-year-old female with complicated surgical history including laparotomy, sigmoid colectomy, repair of left ureter. She denies abdominal pain. She is pending rehab for discharge. ROS: No reports of nausea and vomiting. No fevers or chills. No new chest pain. PHYSICAL EXAM: VITAL SIGNS: Reviewed CONSTITUTIONAL: Well developed and in no acute distress. EYES: Conjuctivae without sclera icterus. Extraocular movements grossly intact. HEAD, EARS, NOSE, THROAT: Moist buccal mucosa. Head is atraumatic, normocephalic. Hears conversational speech. No nasal drainage. Wears dentures. RESPIRATORY: Non-labored respirations and equal bilateral excursions. CARDIOVASCULAR: Palpable 2+ radial pulses. ABDOMEN: Ostomy functioning. MUSCULOSKELETAL: No gross deformity of the lower extremities noted. No clubbing. No cyanosis. SKIN: Good skin turgor. Well perfused. NEUROLOGIC: Cranial nerves II through XII grossly intact. No focal or lateralizing signs. PSYCH: Appropriate affect. Alert and oriented to person, place and time. CLINICAL LABS: Reviewed. No new labs ASSESSMENT: 1. Sigmoid tumor 2. Hematuria, resolved 3. Anemia 4. Complications of ostomy PLAN: 1. Discharge when medically stable Objective - Vital Signs Vital signs: Vital Signs Temp 98.0 F 10/23/21 04:25 Pulse 86 10/23/21 04:25 Resp 20 10/23/21 04:25 BP 150/78 10/23/21 04:25 Pulse Ox 94 L 10/23/21 04:25 FiO2 40 10/03/21 08:15 Intake & Output 10/22/21 10/23/21 10/23/21 18:59 06:59 18:59 Intake Total 100 240 Output Total 400 Balance -300 240 Weight 51.5 kg Intake: Intake, IV Titration 100 Amount Piperacillin-Tazobactam 3 100 .375 gm In Sodium Chloride 0.9% 100 ml @ 25 mls/hr IVPB Q8HR [facility] Rx# :[id number] Oral 240 Output: Stool 400 Other: Voiding Method Bedside Commode - Labs CBC & Chem 7: 10/21/21 05:51 10/21/21 05:51
[2021-10-23] MEDS: MAGNESIUM OXIDE 400 MG TAB PO SCH (09:45)
[2021-10-23] MEDS: FAMOTIDINE 20 MG TAB PO SCH ×2 (09:45→21:07)
[2021-10-23] MEDS: APIXABAN 5 MG TAB PO SCH ×2 (09:45→21:07)
[2021-10-23] MEDS: METOPROLOL TARTRATE 25 MG TAB PO SCH ×3 (09:45→21:07)
[2021-10-23] MEDS: FUROSEMIDE 20 MG TAB PO SCH (09:45)
[2021-10-23] MEDS: DIGOXIN 125 MCG TAB PO SCH (09:46)
[2021-10-23] MEDS: methocarbamoL 750 MG TAB PO SCH ×3 (09:46→21:40)
[2021-10-23 10:42] LABS: Basophils # (A) 0.05 X 10*3/uL (0.00-0.10); Basophils % (A) 0.8 %; Eosinophils # (A) 0.36 X 10*3/uL (0.04-0.35); HCT 31.4 % (37.2-46.3); HGB 9.4 g/dL (12.0-15.0); Immature Grans, Automated 0.5 %; Lymphocytes # (A) 1.67 X 10*3/uL (0.90-5.00); Lymphocytes % (A) 27.9 %; MCHC 29.9 g/dL (32.0-37.0); MCV 103.6 fL (80.0-97.0); Mean Platelet Volume 9.5 fL (9.5-12.2); Monocytes # (A) 0.61 X 10*3/uL (0.20-1.00); Monocytes % (A) 10.2 %; NRBC Per 100 WBC 0 /100 WBCS (0.0-0.0); Neutrophils # (A) 3.26 X 10*3/uL (1.80-7.70); Neutrophils % (A) 54.6 %; Platelet Count 357 X 10*3/uL (140-440); RBC 3.03 X 10*6/uL (4.10-5.20); RDW 14.9 % (11.5-14.5); WBC 5.98 X 10*3/uL (4.50-10.00)
--- NOTE | 2021-10-23 11:51 | P.PN ---
Subjective Progress Note Date: 10/23/21 CHIEF COMPLAINT: Sigmoid colon tumor HISTORY OF PRESENT ILLNESS: Patient is status post exploratory laparotomy, sigmoid colectomy with end colostomy, partial cystectomy, left salpingectomy, appendectomy and repair of left ureter on 10/01/21. Patient is sitting up at bedside chair. Her ostomy is functioning. She is tolerating diet. She reports pain is controlled. She is afebrile. She does report still some hematuria. But her urine continues to clear on a daily basis. WBC is 5.98 hemoglobin is up from 8.9-9.4+357 She is scheduled to be discharged to [facility] today. Patient seen and examined with Dr. sams EXAM: VITAL SIGNS: Reviewed. GENERAL: Well-developed in no acute distress. HEENT: No sclera icterus. Extraocular movements grossly intact. Moist buccal mucosa. Head is atraumatic, normocephalic. ABDOMEN: Soft. nondistended. Ostomy functioning. Abdominal incision packed with aquacel silver packing. Incision continues to show improvement. NEUROLOGIC: Alert and oriented. Cranial nerves II through XII grossly intact. ASSESSMENT: 1. 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 Infection at abdominal incision site PLAN: -Patient can be discharged from surgical standpoint -Recommend the patient continues on Levaquin after discharge for 7 more days -Continue local wound care to abdominal incision and ostomy with Aquacel silver dressing -Continue low fiber Diet Physician Wood Machinist Apprentice note has been reviewed by physician. Signing provider agrees with the documented findings, assessment, and plan of care. Objective - Vital Signs Vital signs: Vital Signs Temp 97.5 F L 10/23/21 11:12 Pulse 83 10/23/21 11:12 Resp 16 10/23/21 11:12 BP 111/58 10/23/21 11:12 Pulse Ox 94 L 10/23/21 11:12 FiO2 40 10/03/21 08:15 Intake & Output 10/22/21 10/23/21 10/23/21 18:59 06:59 18:59 Intake Total 100 240 Output Total 400 Balance -300 240 Weight 51.5 kg Intake: Intake, IV Titration 100 Amount Piperacillin-Tazobactam 3 100 .375 gm In Sodium Chloride 0.9% 100 ml @ 25 mls/hr IVPB Q8HR [facility] Rx# :[id number] Oral 240 Output: Stool 400 Other: Voiding Method Bedside Commode - Labs CBC & Chem 7: 10/23/21 07:05 10/21/21 05:51 Labs: Abnormal Lab Results - Last 24 Hours (Table) 10/23/21 Range/Units 07:05 RBC 3.03 L (4.10-5.20) X 10*6/uL Hgb 9.4 L (12.0-15.0) g/dL Hct 31.4 L (37.2-46.3) % MCV 103.6 H (80.0-97.0) fL MCHC 29.9 L (32.0-37.0) g/dL RDW 14.9 H (11.5-14.5) % Eosinophils # 0.36 H (0.04-0.35) X 10*3/uL
[2021-10-23] MEDS: LEVOFLOXACIN 500 MG TAB PO SCH (13:20)
--- NOTE | 2021-10-23 20:54 | P.PN ---
Subjective 66-year-old female presents to the emergency department with a chief complaint of abdominal pain. Patient states her symptoms started 10 days ago. Describes it as generalized abdominal pain with no radiation. No back pain. She states she had intermittent nausea for the first couple days that has since resolved. No fever, chills, vomiting, or diarrhea. Normal bowel movements with last bowel movement yesterday, nonbloody. Patient has been tolerating oral intake okay however states her appetite has decreased. No burning with urination, increased urinary frequency/urgency, or blood in the urine. No chest pain or shortness of breath. Patient does have history of atrial fibrillation on Eliquis. No upper respiratory symptoms or recent sick contacts. No previous abdominal surgeries. Patient does admit to tobacco use with [id number] history. She denies family history of aneurysm. CT is significant for a suspected partial large bowel obstruction secondary to eccentric bowel wall thickening of the sigmoid colon which is suspicious for primary malignancy. EKG revealed atrial fibrillation with rapid ventricular response; patient was started on IV Cardizem Patient continues to have abdominal distention and pain; no bowel movements; general surgery on board and planning to repeat abdominal x-ray with tentative plan for partial colectomy tomorrow Patient remains in atrial fibrillation with controlled ventricular response at this time; no anticoagulation therapy for anticipated surgery in next 24-48 h ours; echocardiogram reveals normal LV function and no significant valvular abnormalities; cardiology on board and recommending to continue with Lasix 20 mg daily for mild fluid overload; Resume the care of the patient 10/01/2021. Patient awake and alert. She still with abdominal complaint and pain and discomfort with no bowel movement. Surgery team are planning for exploratory laparotomy with possible diverting colostomy and possible sigmoid resection. [employer]ling [employer] team on the case also for preop evaluation and also for her A. fib. Currently rate controlled on metoprolol and oral Lasix. She is on D5 half-normal saline at 50 mL per hour, Flagyl and Zosyn. Labs look stable. 10/02/2021 Patient with sigmoid mass status post exploratory laparotomy with Sigmoid colectomy with end colostomy, Partial cystectomy, Left salpingectomy, Appendectomy, Repair of left ureterPeriod secondary to left ureteral injury during surgical resection. Patient vomited by urologist and had left ureteral repair. Currently has a Mcfarland catheter was recommendation to stay for 2 weeks. Post operatively patient got intubated. Patient currently remains on mechanical ventilation She remains on Zosyn, Eliquis on hold. Patient is started on Pepcid and subcu heparin.. She received also normal saline boluses 10/03/2021 Today patient in the ICU status post extubation. She is postoperative day #2. She still nothing by mouth, awake but very weak. Her colostomy back in a Place, no bowel movement yet. Also Mcfarland catheter with PATRICE drain with more than 200 of serosanguineous fluid. Her pathology is pending, Eliquis still on hold, patient kept on Flagyl and Zosyn and IV fluids. Patient received 1 L of normal saline for hypertension, also her metoprolol dose lowered to 25 mg. 10/04/2021 Patient clinically is improving gradually, her pain at the surgery site is country of, she is fully awake and oriented, she does not look in distress. Her colostomy tube in the left lower quadrant abdomen with some small amounts light brown stool. Mcfarland catheter in place with yellow urine. A follow-up for stent urologist recommended CT of the abdomen without contrast was showing mild positioning of the double J stent, CT urogram is ordered and is pending, neurology following closely. Other that clinically she is doing generally well, improving slowly. She kept nothing by mouth with surgery team following him closely as well. Patient's can go to the general medical floor today. Continue with Flagyl and Zosyn, D5 half-normal saline at 50 mL/h and metoprolol increased to 25 g 3 times a day today. She is also a small dose of oral Lasix while Eliquis still on hold 10/05/2021 Patient remains nothing by mouth, colostomy with no bowel movement or gas. Mcfarland catheter in place. She remains on D5 half-normal saline at 50 mL per hour She looks tired but no distress. Hemodynamically stable. Labs reviewed with WBC 8.2, creatinine 1.1. CT urogram: Extraluminal secreted IV contrast most pronounced along the left ureter with some also appearing near the distal right ureter on delayed imaging. This is favored to represent a left ureteral injury with layering in the pelvis. Right ureteral injury is not entirely exclude it.A left ureteral stent is seen. urologist on the case 10/06/2021 patient remains clinically same with no significant change, she is tired looking, she still nothing by mouth. Colostomy back still not showing bowel movements today however it has bowel movement yesterday Mcfarland catheter in place. Patient followed closely by urology service Pathology did not show final diagnosis and the specimen was sent to [facility] by pathologist for consultation. Oncology team on the case also. Continue with Zosyn, Flagyl and D5 half-normal saline at 50 mL per hour. 10/07/2021 Patient generally doing well and she is improving gradually and slowly. His morning she was still nothing by mouth but surgery team are planning to start her on diet and liquid diet today. Colostomy back is working and last time and it was last night. Mcfarland catheter in place with some dark colored urine which is expected from her recent surgery and some bleeding. Repeat chest x-ray showing pleural effusion with atelectasis. Pending pathology which is sent then [facility] for further consultation. She remains on Flagyl and Zosyn and D5 half-normal saline at 50. Eliquis on hold Subjective I am Resume the care of the patient today 10/16/2021 Patient today looks stronger and more awake and she was sitting on bed compared to last time I saw her. She is hemodynamically stable. Labs reviewed in the looks stable as well. Urologist team are following closely and the recommend to discontinue Mcfarland catheter after cystograms showing no extravasation. Urologist. Also surgery team on the board Today she became hypoxic on room air at 85%, repeat chest x-ray showing bilateral infiltrate with basilar effusion and atelectasis but pneumonia and edema cannot be excluded per radiologist however patient and Zosyn, most likely is due to fluid. We will check ultrasound of the chest. If one-time dose of Lasix. Patient is not on IV fluid. Also Eliquis is on hold for surgery team Oncology team also the case 10/17/2021 Patient improving gradually and slowly, she still generally weak, she still hypoxic on room air but she is minimally tachypneic while at rest. Chest x-ray showing fluid overload with bilateral mild to moderate pleural effusion, chest ultrasound is reviewed. Also patient with bilateral eating like edema. She received IV Lasix 1 dose yesterday and started her on 420 mg twice daily. Mcfarland catheter was discontinued by urologist and recommended follow-up as an outpatient in [address] Luevano for cystoscopy and stent removal. Also surgery team are intending to clear the patient for discharge tomorrow. Patient still Eliquis is on hold. Patient will benefit from ECF upon discharge 10/18/2021 Patient is improving slowly and gradually, she is fully awake and oriented, generally she feels well, no dyspnea while at rest, no chest pain, her leg swelling is improving, she is saturating mid 90s on 2 L oxygen nasal cannula. Chest ultrasound is noted, most likely patient does not need thoracocentesis and her oxygen status is improving with IV Lasix Creatinine is stable at 0.7. Potassium and magnesium were normal. She skipped on IV Lasix 40 mg twice daily, if oxygen saturation Improving tomorrow she may be considered to change IV Lasix into oral dosing, she is kept on fluid restriction. She is also on Zosyn with wound culture growing E. coli.Bladder scan is 47 mm only urologic and surgery team on the case, Both services. The patient to resume Lasix, also some hematuria is expected but patient informed today that she will need follow-up with the urologist as an outpatient in 4 weeks to remove stent and she verbalized understanding. Plan for ECF upon discharge for rehab and patient agrees Also we will discuss with oncology team about the pathology results. I am resuming the care of the patient today 10/22/2021 Patient today is fully awake and oriented, much as symptomatic, no chest pain or dyspnea, no abdominal complaints, tolerated started 12, colostomy bag is working. No diarrhea. No fever. No abdominal pain. Hemodynamically stable. Her edema and breathing significantly improved. We will lower her Lasix 40 mg down to 20 mg daily from tomorrow. She skipped on Eliquis and hemoglobin stable Also she is on Zosyn. Patient was instructed and recommended to follow-up with Dr. Carty as an outpatient and urologist and general surgeon Patient also pending placement Possible discharge in 24-48 or if she keeps improving and stable 10/23/2021 Patient is clinically doing well she is eating and moving at baseline, colostomy back is working. She has no new symptoms and hemodynamically stable, CBC is a stable and hemoglobin is 9.4 at baseline today. She remains on Zosyn with recommendation to switch to oral antibiotics for discharge Also she is on Eliquis. A day I discussed the case with Dr. Carty, as per discussion looks like biopsy. At [facility] was negative for malignant abnormality, however they recommended to close outpatient follow-up. Also discussed the case with surgical team, most likely patient has bad inflammatory reaction from her diverticular disease. Patient informed and instructed to follow up closely with Dr. Carty in 2-3 weeks after discharge, with Dr. Carranza. Also she was instructe d to follow up with urologist for sent removal in 3-4 weeks and she verbalized understanding and acceptance. Patient is medically stable pending prior authorization for placement to ECF for rehab Objective - Vital Signs Vital signs: Vital Signs Temp 97.5 F L 10/23/21 11:12 Pulse 83 10/23/21 11:12 Resp 16 10/23/21 11:12 BP 111/58 10/23/21 11:12 Pulse Ox 94 L 10/23/21 11:12 FiO2 40 10/03/21 08:15 Intake & Output 10/22/21 10/23/21 10/23/21 18:59 06:59 18:59 Intake Total 100 240 Output Total 400 Balance -300 240 Weight 51.5 kg Intake: Intake, IV Titration 100 Amount Piperacillin-Tazobactam 3 100 .375 gm In Sodium Chloride 0.9% 100 ml @ 25 mls/hr IVPB Q8HR [facility] Rx# :[id number] Oral 240 Output: Stool 400 Other: Voiding Method Bedside Commode Bedside Commode # Voids 1 - Exam GENERAL: The patient is alert and oriented x3, not in any acute distress. Well developed, well nourished. HEENT: Pupils are round and equally reacting to light. EOMI. No scleral icterus. No conjunctival pallor. Normocephalic, atraumatic. No pharyngeal erythema. No thyromegaly. CARDIOVASCULAR: S1 and S2 present. No murmurs, rubs, or gallops. PULMONARY: Chest is clear to auscultation, no wheezing or crackles. -ABDOMEN: Soft, mild generalized tenderness and mild generalized distention, normoactive bowel sounds. No palpable organomegaly. Colostomy tube in place, Mcfarland catheter MUSCULOSKELETAL: No joint swelling or deformity. EXTREMITIES: No cyanosis, clubbing, or pedal edema. NEUROLOGICAL: Gross neurological examination did not reveal any focal deficits. SKIN: No rashes. no petechiae. - Labs CBC & Chem 7: 10/23/21 07:05 10/21/21 05:51 Labs: Abnormal Lab Results - Last 24 Hours (Table) 10/23/21 Range/Units 07:05 RBC 3.03 L (4.10-5.20) X 10*6/uL Hgb 9.4 L (12.0-15.0) g/dL Hct 31.4 L (37.2-46.3) % MCV 103.6 H (80.0-97.0) fL MCHC 29.9 L (32.0-37.0) g/dL RDW 14.9 H (11.5-14.5) % Eosinophils # 0.36 H (0.04-0.35) X 10*3/uL Assessment and Plan Assessment: -Sigmoid wall thickening suspicious for sigmoid months with partial colon obstruction. status post exploratory laparotomy with Sigmoid colectomy with end colostomy, Partial cystectomy, Left salpingectomy, Appendectomy, Repair of left ureterPeriod secondary to left ureteral injury during surgical resection -A. fib and RVR. -Hypertension -Hyperlipidemia -History of COPD, not in activation Plan: this is a pleasant 66 years old female. Going for bowel surgery for her possible colon mass. Also with A. fib. Continue with Zosyn , currently switched to oral antibiotics upon discharge Continue Lasix 20 mg Surgery team on the case. Pathology was negative for malignant lesions as per discussion with oncology team and surgery team. oncology team on the [facility] Cardiology team on the case, and Pulmonary team consult have already evaluated the patient urology team on the case, Recommend to follow-up outpatient for stent management Labs and medication were reviewed.. Continue same treatment. Continue with symptomatic treatment. Resume home medication. Monitor lytes and vitals. DVT and GI prophylaxis. Further recommendations as per clinical course of the patient DVT prophylaxis: Eliquis is resumed GI Prophylaxis: Pepcid PT/OT recommended rehab Possible discharge in 24-48 hours
[2021-10-23] MEDS: ATORVASTATIN 40 MG TAB PO SCH (21:07)
[2021-10-24] MEDS: FUROSEMIDE 20 MG TAB PO SCH (09:19)
[2021-10-24] MEDS: MAGNESIUM OXIDE 400 MG TAB PO SCH (09:20)
[2021-10-24] MEDS: DIGOXIN 125 MCG TAB PO SCH (09:20)
[2021-10-24] MEDS: FAMOTIDINE 20 MG TAB PO SCH (09:20)
[2021-10-24] MEDS: APIXABAN 5 MG TAB PO SCH (09:20)
[2021-10-24] MEDS: METOPROLOL TARTRATE 25 MG TAB PO SCH ×2 (09:20→17:26)
[2021-10-24] MEDS: methocarbamoL 750 MG TAB PO SCH ×2 (09:20→17:25)
[2021-10-24 12:00] VITALS: BP 93/58; PULSE 60; RESP 16; TEMP 97.4
[2021-10-24] MEDS: LEVOFLOXACIN 500 MG TAB PO SCH (12:41)
--- NOTE | 2021-10-24 13:33 | P.PN ---
Subjective Progress Note Date: 10/24/21 CHIEF COMPLAINT: Sigmoid colon tumor HISTORY OF PRESENT ILLNESS: Patient is status post exploratory laparotomy, sigmoid colectomy with end colostomy, partial cystectomy, left salpingectomy, appendectomy and repair of left ureter on 10/01/21. Patient denies any abdominal pain. Denies any nausea vomiting. Ostomy is functioning. She is awaiting insurance authorization for placement in ECF. Her hematuria continues to improve each day. Afebrile. WBC is 5.98 hemoglobin is up from 8.9-9.4 and these are labs from yesterday. No new labs for today Patient seen and examined with Dr. sams EXAM: VITAL SIGNS: Reviewed. GENERAL: Well-developed in no acute distress. HEENT: No sclera icterus. Extraocular movements grossly intact. Moist buccal mucosa. Head is atraumatic, normocephalic. ABDOMEN: Soft. nondistended. Ostomy functioning. Abdominal incision packed with aquacel silver packing. Incision continues to show improvement. NEUROLOGIC: Alert and oriented. Cranial nerves II through XII grossly intact. ASSESSMENT: 1. 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 Infection at abdominal incision site PLAN: -Patient can be discharged from surgical standpoint -Recommend the patient continues on Levaquin after discharge for 7 more days -Continue local wound care to abdominal incision and ostomy with Aquacel silver dressing -Continue low fiber Diet Physician Director Content Marketing note has been reviewed by physician. Signing provider agrees with the documented findings, assessment, and plan of care. Objective - Vital Signs Vital signs: Vital Signs Temp 97.4 F L 10/24/21 11:38 Pulse 60 10/24/21 11:38 Resp 16 10/24/21 11:38 BP 93/58 10/24/21 11:38 Pulse Ox 97 10/24/21 11:38 FiO2 40 10/03/21 08:15 Intake & Output 10/23/21 10/24/21 10/24/21 18:59 06:59 18:59 Intake Total 10 Balance 10 Weight 58.5 kg Intake: IV 10 Invasive Line 5 10 Other: Voiding Method Bedside Commode Bedside Commode Bedside Commode # Voids 3 3 # Bowel Movements 250 - Labs CBC & Chem 7: 10/23/21 07:05 10/21/21 05:51
--- NOTE | 2021-10-24 15:23 | P.DS ---
Providers Date of admission: 09/28/21 20:56 Attending physician: Conchita Galvan Consults: 09/28/21 20:57 Consult Physician Urgent Consulting Provider: Julian Hugo Consult Reason/Comments: rvr Do you want consulting provider notified?: Yes, Notify in am Consult Physician Urgent Consulting Provider: Ronald Carranza Consult Reason/Comments: sigmoid mass with large bowel obstruction Do you want consulting provider notified?: Yes, Notify in am 09/28/21 20:59 Consult Physician Routine Consulting Provider: Blaine Carty Consult Reason/Comments: colon mass concern for malignancy Do you want consulting provider notified?: Yes, Notify in am 10/01/21 23:56 Consult Physician Stat Consulting Provider: Freddy Shelton Consult Reason/Comments: Intubated Do you want consulting provider notified?: Already Contacted Primary care physician: Adrián Farias Hospital Course: Diagnoses -Large sigmoid mass with partial colon obstruction. status post exploratory laparotomy with Sigmoid colectomy with end colostomy, Partial cystectomy, Left salpingectomy, Appendectomy, Repair of left ureter, secondary to left ureteral injury during surgical resection -A. fib and RVR. Rate controlled, and Eliquis -Generalized weakness and deconditioning secondary to above -Hypertension -Hyperlipidemia -History of COPD, not in activation Hospital course: this is a pleasant 66-year-old female presents to the emergency department with a chief complaint of abdominal pain( x 10 days ) , T is significant for a suspected partial large bowel obstruction secondary to eccentric bowel wall thickening of the sigmoid colon . Patient evaluated by surgeon Dr. Llamas , she is status post exploratory laparotomy with Sigmoid colectomy with end colostomy, Partial cystectomy, Left salpingectomy, Appendectomy, Repair of left ureter, secondary to left ureteral injury during surgical resection on 10/01. Patient also has been followed by urologist for her ureteral and bladder injury. (( Pathology of the specimen impression was that of a large sigmoid mass invading the bladder and salpinx, but the submitted sections of this colon do not show a malignancy.also showed diverticulosis and acellular mucin within the wall of the bowel, The mucin could be due to ruptured diverticula)), the specimen was sent to [facility] for second opinion, no report available but I discussed the case with her oncologist Dr. Carty who advised no malignant cells found. However patient still advised to follow up with Dr. Carty ordering oncologist upon discharge in 2-3 weeks and she agrees to call and make appointment. Patient also had evidence of sepsis and treated with Zosyn, with culture was growing E. coli, patient has been followed closely by several consultants including surgery, urologist, oncologist, wedger and pile driving technician. Patient remained stable and start improving gradually, and over the last few days she was fully awake oriented, denying chest pain or dyspnea. No abdominal pain. Left lower quadrant colostomy back is working. Mcfarland catheter was discontinued by urologist however she still have ureteral stent that she will need cystoscopy and removal of the stent with urologist Dr. Luevano in 3 weeks , pt informed and she agrees Patient was cleared for discharge by all consultants including general surgeon, urologist, oncologist and wedger. Patient could be discharged on oral Levaquin 7 days per recommendation of surgeon team Problems and management plan were discussed with the patient and he verbalized understanding and acceptance Patient was found stable and can be discharged home however he needs follow-up as an outpatient. Patient was instructed to follow up with PCP within one week and patient agrees Dr. Farias Patient was instructed to follow up with oncologist Dr. Carty and she agrees with the appointments made for her on 11/05 stating she will follow-up. Patient was informed with her appointment with Dr. Luevano on 11/20 and she agrees with it as well Patient was informed to follow up with surgeon Dr. Borja in 1-2 weeks and she agrees Physical exam Gen: patient is a AAOx3, no distress CVS: S1-S2, RRR, no murmur Lungs: B/L CTA, no wheezing -Abdomen: soft, no distention, no tenderness, positive bowel sounds. Left lower quadrant colostomy bag is working Extremity: no leg edema or induration Time spent more than 35 minutes Describes it as generalized abdominal pain with no radiation. No back pain. She states she had intermittent nausea for the first couple days that has since resolved. No fever, chills, vomiting, or diarrhea. Normal bowel movements with last bowel movement yesterday, nonbloody. Patient has been tolerating oral intake okay however states her appetite has decreased. No burning with urination, increased urinary frequency/urgency, or blood in the urine. No chest pain or shortness of breath. Patient does have history of atrial fibrillation on Eliquis. No upper respiratory symptoms or recent sick contacts. No previous abdominal surgeries. Patient does admit to tobacco use with [id number] history. She denies family history of aneurysm. CT is significant for a suspected partial large bowel obstruction secondary to eccentric bowel wall thickening of the sigmoid colon which is suspicious for primary malignancy. EKG revealed atrial fibrillation with rapid ventricular response; patient was started on IV Cardizem Patient continues to have abdominal distention and pain; no bowel movements; general surgery on board and planning to repeat abdominal x-ray with tentative plan for partial colectomy tomorrow Patient remains in atrial fibrillation with controlled ventricular response at this time; no anticoagulation therapy for anticipated surgery in next 24-48 hours; echocardiogram reveals normal LV function and no significant valvular abnormalities; cardiology on board and recommending to continue with Lasix 20 mg daily for mild fluid overload; Resume the care of the patient 10/01/2021. Patient awake and alert. She still with abdominal complaint and pain and discomfort with no bowel movement. Surgery team are planning for exploratory laparotomy with possible diverting colostomy and possible sigmoid resection. Physiotherapy Practice Manager team on the case also for preop evaluation and also for her A. fib. Currently rate controlled on metoprolol and oral Lasix. She is on D5 half-normal saline at 50 mL per hour, Flagyl and Zosyn. Labs look stable. 10/02/2021 Patient with sigmoid mass status post exploratory laparotomy with Sigmoid colectomy with end colostomy, Partial cystectomy, Left salpingectomy, Appendectomy, Repair of left ureterPeriod secondary to left ureteral injury during surgical resection. Patient vomited by urologist and had left ureteral repair. Currently has a Mcfarland catheter was recommendation to stay for 2 weeks. Post operatively patient got intubated. Patient currently remains on mechanical ventilation She remains on Zosyn, Eliquis on hold. Patient is started on Pepcid and subcu heparin.. She received also normal saline boluses 10/03/2021 Today patient in the ICU status post extubation. She is postoperative day #2. She still nothing by mouth, awake but very weak. Her colostomy back in a Place, no bowel movement yet. Also Mcfarland catheter with PATRICE drain with more than 200 of serosanguineous fluid. Her pathology is pending, Eliquis still on hold, patient kept on Flagyl and Zosyn and IV fluids. Patient received 1 L of normal saline for hypertension, also her metoprolol dose lowered to 25 mg. 10/04/2021 Patient clinically is improving gradually, her pain at the surgery site is country of, she is fully awake and oriented, she does not look in distress. Her colostomy tube in the left lower quadrant abdomen with some small amounts light brown stool. Mcfarland catheter in place with yellow urine. A follow-up for stent urologist recommended CT of the abdomen without contrast was showing mild positioning of the double J stent, CT urogram is ordered and is pending, neurology following closely. Other that clinically she is doing generally well, improving slowly. She kept nothing by mouth with surgery team following him closely as well. Patient's can go to the general medical floor today. Continue with Flagyl and Zosyn, D5 half-normal saline at 50 mL/h and metoprolol increased to 25 g 3 times a day today. She is also a small dose of oral Lasix while Eliquis still on hold 10/05/2021 Patient remains nothing by mouth, colostomy with no bowel movement or gas. Mcfarland catheter in place. She remains on D5 half-normal saline at 50 mL per hour She looks tired but no distress. Hemodynamically stable. Labs reviewed with WBC 8.2, creatinine 1.1. CT urogram: Extraluminal secreted IV contrast most pronounced along the left ureter with some also appearing near the distal right ureter on delayed imaging. This is favored to represent a left ureteral injury with layering in the pelvis. Right ureteral injury is not entirely exclude it.A left ureteral stent is seen. urologist on the case 10/06/2021 patient remains clinically same with no significant change, she is tired looking, she still nothing by mouth. Colostomy back still not showing bowel movements today however it has bowel movement yesterday Mcfarland catheter in place. Patient followed closely by urology service Pathology did not show final diagnosis and the specimen was sent to [facility] by pathologist for consultation. Oncology team on the case also. Continue with Zosyn, Flagyl and D5 half-normal saline at 50 mL per hour. 10/07/2021 Patient generally doing well and she is improving gradually and slowly. His morning she was still nothing by mouth but surgery team are planning to start her on diet and liquid diet today. Colostomy back is working and last time and it was last night. Mcfarland catheter in place with some dark colored urine which is expected from her recent surgery and some bleeding. Repeat chest x-ray showing pleural effusion with atelectasis. Pending pathology which is sent then [facility] for further consultation. She remains on Flagyl and Zosyn and D5 half-normal saline at 50. Eliquis on hold Subjective I am Resume the care of the patient today 10/16/2021 Patient today looks stronger and more awake and she was sitting on bed compared to last time I saw her. She is hemodynamically stable. Labs reviewed in the looks stable as well. Urologist team are following closely and the recommend to discontinue Mcfarland catheter after cystograms showing no extravasation. Urologist. Also surgery team on the board Today she became hypoxic on room air at 85%, repeat chest x-ray showing bilateral infiltrate with basilar effusion and atelectasis but pneumonia and edema cannot be excluded per radiologist however patient and Zosyn, most likely is due to fluid. We will check ultrasound of the chest. If one-time dose of Lasix. Patient is not on IV fluid. Also Eliquis is on hold for surgery team Oncology team also the case 10/17/2021 Patient improving gradually and slowly, she still generally weak, she still hypoxic on room air but she is minimally tachypneic while at rest. Chest x-ray showing fluid overload with bilateral mild to moderate pleural effusion, chest ultrasound is reviewed. Also patient with bilateral eating like edema. She received IV Lasix 1 dose yesterday and started her on 420 mg twice daily. Mcfarland catheter was discontinued by urologist and recommended follow-up as an outpatient in [address] Luevano for cystoscopy and stent removal. Also surgery team are intending to clear the patient for discharge tomorrow. Patient still Eliquis is on hold. Patient will benefit from ECF upon discharge 10/18/2021 Patient is improving slowly and gradually, she is fully awake and oriented, generally she feels well, no dyspnea while at rest, no chest pain, her leg swelling is improving, she is saturating mid 90s on 2 L oxygen nasal cannula. Chest ultrasound is noted, most likely patient does not need thoracocentesis and her oxygen status is improving with IV Lasix Creatinine is stable at 0.7. Potassium and magnesium were normal. She skipped on IV Lasix 40 mg twice daily, if oxygen saturation Improving tomorrow she may be considered to change IV Lasix into oral dosing, she is kept on fluid restriction. She is also on Zosyn with wound culture growing E. coli.Bladder scan is 47 mm only urologic and surgery team on the case, Both services. The patient to resume Lasix, also some hematuria is expected but patient informed today that she will need follow-up with the urologist as an outpatient in 4 weeks to remove stent and she verbalized understanding. Plan for ECF upon discharge for rehab and patient agrees Also we will discuss with oncology team about the pathology results. I am resuming the care of the patient today 10/22/2021 Patient today is fully awake and oriented, much as symptomatic, no chest pain or dyspnea, no abdominal complaints, tolerated started 12, colostomy bag is w orking. No diarrhea. No fever. No abdominal pain. Hemodynamically stable. Her edema and breathing significantly improved. We will lower her Lasix 40 mg down to 20 mg daily from tomorrow. She skipped on Eliquis and hemoglobin stable Also she is on Zosyn. Patient was instructed and recommended to follow-up with Dr. Carty as an outpatient and urologist and general surgeon Patient also pending placement Possible discharge in 24-48 or if she keeps improving and stable 10/23/2021 Patient is clinically doing well she is eating and moving at baseline, colostomy back is working. She has no new symptoms and hemodynamically stable, CBC is a stable and hemoglobin is 9.4 at baseline today. She remains on Zosyn with recommendation to switch to oral antibiotics for discharge Also she is on Eliquis. A day I discussed the case with Dr. Carty, as per discussion looks like biopsy. At [facility] was negative for malignant abnormality, however they recommended to close outpatient follow-up. Also discussed the case with surgical team, most likely patient has bad inflammatory reaction from her diverticular disease. Patient informed and instructed to follow up closely with Dr. Carty in 2-3 weeks after discharge, with Dr. Carranza. Also she was instructed to follow up with urologist for sent removal in 3-4 weeks and she verbalized understanding and acceptance. Patient is medically stable pending prior authorization for placement to ECF for rehab Patient Condition at Discharge: Good Plan - Discharge Summary Discharge Rx Participant: No New Discharge Prescriptions: No Action Metoprolol Tartrate 50 mg PO BID Digoxin [Lanoxin] 125 mcg PO DAILY Apixaban [Eliquis] 5 mg PO BID 30 Days #60 tab Atorvastatin [Lipitor] 40 mg PO HS Discharge Medication List Apixaban [Eliquis] 5 mg PO BID 30 Days #60 tab 04/12/21 [Rx] Metoprolol Tartrate 50 mg PO BID 08/17/21 [History] Atorvastatin [Lipitor] 40 mg PO HS 09/28/21 [History] Digoxin [Lanoxin] 125 mcg PO DAILY 09/28/21 [History] Follow up Appointment(s)/Referral(s): Blaine Carty MD [STAFF PHYSICIAN] - 11/05/21 4:00 pm (This appt is at the [facility] Adrián Farias MD [Primary Care Provider] - 1-2 days Victor M Luevano MD [STAFF PHYSICIAN] - 11/20/21 1:20 pm Ronald Carranza MD [STAFF PHYSICIAN] - 1 Week Patient Instructions/Handouts: How to Stop Smoking (GEN), Colostomy Care (GEN), Bowel Resection (DC) Activity/Diet/Wound Care/Special Instructions: Colostomy Care Recommendations for transition to Rehab : Last Pouching system change: 10.19.2021 Convatec one piece cut to fit w filter #[id number] (3 for transition of care) Pack mucutaneous separation are with Opticell Ag with every pouching system change until directed by surgeon No sting prep pads (10) for Rehab Ostomy Powder Ms Sinan is to change the entire pouching system every 3 days including mucutaneous juncture separation area with Opticell Ag - unless otherwise directed by Surgeon Empty the pouch when it is 1/2 to 1/3 full while sitting on the toilet or straddling the toilet and clean the end of the pouch with plain toilet tissue no baby wipes. Follow-up with Dr. Luevano in 3 weeks for office cystoscopy with ureteral stent removal. Shower daily Pack Aquacel rope in abdominal incision opening. Change Aquacel rope every 48 hours. diet:low fiber Diet activity : as tolerated
== END 2021-10-24 17:53 | DRG 329 ==
LOC: EC 12:57 → 3SCARD 20:56 → 2SICU 10-01 22:26 → 5NMEDONC 10-04 17:04
PROVIDERS: ADMIT Hospitalist; ATTEND Hospitalist
PROC: 0TQ70ZZ Repair Left Ureter, Open Approach (ICD-10-PCS; 2021-10-01)
PROC: 0UT60ZZ Resection of Left Fallopian Tube, Open Approach (ICD-10-PCS; 2021-10-01)
PROC: 0TBB0ZZ Excision of Bladder, Open Approach (ICD-10-PCS; 2021-10-01)
PROC: 0DBP0ZZ Excision of Rectum, Open Approach (ICD-10-PCS; 2021-10-01)
PROC: 0T170Z7 Bypass Left Ureter to Left Ureter, Open Approach (ICD-10-PCS; 2021-10-01)
PROC: 0TQB0ZZ Repair Bladder, Open Approach (ICD-10-PCS; 2021-10-01)
PROC: 0T770DZ Dilation of Left Ureter with Intraluminal Device, Open Approach (ICD-10-PCS; 2021-10-01)
PROC: 0DBN0ZZ Excision of Sigmoid Colon, Open Approach (ICD-10-PCS; principal; 2021-10-01 11:50)
PROC: 0D1N0Z4 Bypass Sigmoid Colon to Cutaneous, Open Approach (ICD-10-PCS; 2021-10-01 11:50)
PROC: 0T170Z7 Bypass Left Ureter to Left Ureter, Open Approach (ICD-10-PCS; 2021-10-05)
PROC: 0TP90DZ Removal of Intraluminal Device from Ureter, Open Approach (ICD-10-PCS; 2021-10-05)
PROC: 0T770DZ Dilation of Left Ureter with Intraluminal Device, Open Approach (ICD-10-PCS; 2021-10-05)
DX: K57.32 Diverticulitis of large intestine without perforation or abscess without bleeding (principal); A41.51 Sepsis due to Escherichia coli [E. coli]; J96.01 Acute respiratory failure with hypoxia; J96.02 Acute respiratory failure with hypercapnia; I48.19 Other persistent atrial fibrillation; S37.19XA Other injury of ureter, initial encounter; D62 Acute posthemorrhagic anemia; T83.122A Displacement of indwelling ureteral stent, initial encounter; T81.41XA Infection following a procedure, superficial incisional surgical site, initial encounter; J90 Pleural effusion, not elsewhere classified; E86.0 Dehydration; E78.5 Hyperlipidemia, unspecified; F17.210 Nicotine dependence, cigarettes, uncomplicated; I25.10 Atherosclerotic heart disease of native coronary artery without angina pectoris; I25.82 Chronic total occlusion of coronary artery; I10 Essential (primary) hypertension; J44.9 Chronic obstructive pulmonary disease, unspecified; R53.81 Other malaise; K76.0 Fatty (change of) liver, not elsewhere classified; I27.20 Pulmonary hypertension, unspecified; E86.1 Hypovolemia; E87.70 Fluid overload, unspecified; R31.0 Gross hematuria; E83.42 Hypomagnesemia; Y73.2 Prosthetic and other implants, materials and accessory gastroenterology and urology devices associated with adverse incidents; Z79.899 Other long term (current) drug therapy; Z79.01 Long term (current) use of anticoagulants; Z98.51 Tubal ligation status; Z98.890 Other specified postprocedural states; Z82.49 Family history of ischemic heart disease and other diseases of the circulatory system; Z83.3 Family history of diabetes mellitus; Z80.3 Family history of malignant neoplasm of breast
CPT/HCPCS: 36415; 36600; 71045; 71046; 74018; 74019; 74176; 74177; 74178; 74400; 74430; 76604; 80048; 80053; 81001; 82378; 82570; 82607; 82728; 82746; 82805; 83540; 83550; 83615; 83690; 83735; 83880; 83921; 84425; 84484; 85025; 85045; 85610; 85730; 86304; 86850; 86900; 86901; 87070; 87075; 87077; 87086; 87186; 87205; 88309; 93005; 93306; 94002; 94003; 94640; 96361; 96365; 96366; 96375; 99285

== ENCOUNTER → 2021-12-31 | Outpatient (CLI) | payer MEDICARE ==
--- NOTE | 2021-12-31 16:21 | US ---
EXAMINATION TYPE: US kidneys/renal and bladder DATE OF EXAM: 12/31/2021 COMPARISON: 10/14 CT abd CLINICAL HISTORY: N13.30 HYDRONEPHROSIS. pt has osteomy just over left lower abd area, pt denies comp laints of pain EXAM MEASUREMENTS: Right Kidney: 8.6 x 3.4 x 4.9 cm Left Kidney: 9.7 x 4.8 x 4.0 cm No hydronephrosis is evident at this time. Right Kidney: wnl Left Kidney: wnl Bladder: limited scan window due to osteomy bag and tape, wnl as seen IMPRESSION: 1. Renal ultrasound as visualized appears unremarkable.
== END | disposition home or self-care (01) ==
LOC: RADUSWWP 13:35
PROVIDERS: ATTEND Urology
DX: N13.30 Unspecified hydronephrosis (principal)
CPT/HCPCS: 76770

== ENCOUNTER → 2022-01-21 | Outpatient (CLI) | payer MEDICARE ==
[2022-01-22 00:58] LABS: Appearance,Urine Clear (Clear); Bilirubin,Urine Negative (Negative); Blood,Urine Negative (Negative); Color,Urine Yellow (Yellow); Ketones,Urine Negative (Negative); Nitrite,Urine Negative (Negative); PH, Urine 6.5 (5.0-8.0); Specific Gravity,Urine 1.009 (1.001-1.030); Urobilinogen,Urine 0.2 (0.2,1.0)
[2022-01-22 01:14] LABS: Basophils # (A) 0.03 X 10*3/uL (0.00-0.10); Basophils % (A) 0.4 %; Eosinophils # (A) 0.23 X 10*3/uL (0.04-0.35); Eosinophils % (A) 3.2 %; HCT 42.7 % (37.2-46.3); HGB 13.2 g/dL (12.0-15.0); Immature Grans, Automated 0.1 %; Lymphocytes # (A) 1.94 X 10*3/uL (0.90-5.00); Lymphocytes % (A) 27.1 %; MCH 31.2 pg (27.0-32.0); MCHC 30.9 g/dL (32.0-37.0); MCV 100.9 fL (80.0-97.0); Mean Platelet Volume 10.2 fL (9.5-12.2); Monocytes # (A) 0.61 X 10*3/uL (0.20-1.00); Monocytes % (A) 8.5 %; NRBC Per 100 WBC 0 /100 WBCS (0.0-0.0); Neutrophils # (A) 4.35 X 10*3/uL (1.80-7.70); Neutrophils % (A) 60.7 %; Platelet Count 245 X 10*3/uL (140-440); RBC 4.23 X 10*6/uL (4.10-5.20); RDW 15.8 % (11.5-14.5); WBC 7.17 X 10*3/uL (4.50-10.00)
[2022-01-22 02:30] LABS: Albumin/Globulin Ratio 1.6 (1.60-3.17); Anion Gap 10.5 mmol/L (10.00-18.00); Calcium 9.3 mg/dL (8.7-10.3); Carbon Dioxide 27.5 mmol/L (20.0-27.5); Globulin 2.5 g/dL (1.6-3.3); Non-African American GFR(CKD) 57.8 (60.0-200.0); Potassium 4.2 mmol/L (3.5-5.5); Total Bilirubin 0.3 mg/dL (0.30-1.20); Total Protein 6.5 g/dL (6.2-8.2)
== END | disposition home or self-care (01) ==
LOC: LABPAT 14:12
PROVIDERS: ATTEND Urology
DX: Z01.812 Encounter for preprocedural laboratory examination (principal); N13.30 Unspecified hydronephrosis
CPT/HCPCS: 36415; 80053; 81003; 85025; 87086

== ENCOUNTER 2022-01-31 07:32 | Day surgery (SDC) | payer MEDICARE ==
[~2022-01-31 07:32] MED LIST changes: -ALPRAZolam 0.25 MG TAB PO PRN; -ALPRAZolam 0.5 MG TAB PO PRN; -APIXABAN 5 MG TAB PO SCH; -ASCORBIC ACID 500 MG TAB PO SCH; -ASPIRIN 325 MG TAB PO ONE; -ATORVASTATIN 40 MG TAB PO SCH; -ATORVASTATIN 80 MG TAB PO ONE; -CYANOCOBALAMIN 500 MCG TAB PO SCH; -HEPARIN SODIUM 1,000 UN/ML (10ML VL) IV ONE; -HEPARIN SODIUM 1,000 UN/ML (10ML VL) ONE; -HEPARIN SODIUM,PORCINE 10,000 UNIT in SODIUM CHLORIDE 0.9% 1,000 ML IRRIGATION PRN; -HEPARIN SODIUM,PORCINE 2,500 UNIT in SODIUM CHLORIDE 0.9% 250 ML IRRIGATION PRN; -IOPAMIDOL-370 100ML BTL INJ ONE; -IPRATROPIUM-ALBUTEROL 3 ML NEB INHALATION PRN; +LACTATED RINGERS 1,000 ML IV SCH; +LIDOCAINE 1% (10MG/ML) FOR IV START INTRADERMA PRN; -LIDOCAINE 1% INJ 10MG/ML (20 ML MDV) SQ ONE; -LIDOCAINE 1% PF 10 MG/ML (5 ML AMP) SQ ONE; -METOPROLOL TARTRATE 50 MG TAB PO SCH; -MULTIVITAMINS, THERA 1 EACH TAB PO SCH; -NITROGLYCERIN SL TABS 0.4 MG TAB SUBLINGUAL PRN; -SODIUM CHLORIDE 0.9% 1,000 ML in EMPTY BAG 1 BAG IV SCH; -SYMBICORT 160-4.5 MCG INHALER INHALATION SCH; -VERAPAMIL 2.5 MG/ML 2 ML AMP ONE; -VERAPAMIL SYRINGE (5 MG/10 ML) INTRAARTER ONE; -fentaNYL (PF) 50 MCG/ML 2 ML AMP IV ONE; -fentaNYL (PF) 50 MCG/ML 2 ML AMP ONE
[2022-01-31 08:15] VITALS: TEMP 98.2
[2022-01-31] MEDS ORDERED: PROPOFOL 10 MG/ML 20 ML VIAL IV ONE (08:35)
--- NOTE | 2022-01-31 08:41 | P.GSHP ---
History of Present Illness H&P Date: 01/31/22 Chief Complaint: History of perforated diverticulitis This is a 66-year-old female who presents today for colonoscopy. Patient underwent reversal colostomy tomorrow. She is appears history of perforated diverticulitis with colostomy. Past Medical History Past Medical History: Atrial Fibrillation, COPD, Hyperlipidemia, Hypertension History of Any Multi-Drug Resistant Organisms: None Reported Past Surgical History: Bowel Resection, Tubal Ligation Additional Past Surgical History / Comment(s): Colonoscopy. Cardioversion, bowel resection w/colostomy, appy, fallopian tube removed, repair of ureter w/stent, cystotomy in September 2021 Past Anesthesia/Blood Transfusion Reactions: No Reported Reaction Additional Past Anesthesia/Blood Transfusion Reaction / Comment(s): NO PREVIOUS ANESTHESIA Smoking Status: Current every day smoker - Past Family History Father Family Medical History: Myocardial Infarction ([place]) Additional Family Medical History / Comment(s): Father of a [place] at the age of 54yrs. Mother Family Medical History: Cancer, Diabetes Mellitus Additional Family Medical History / Comment(s): BREAST CA Sister(s) Family Medical History: Cancer Medications and Allergies Home Medications Medication Instructions Recorded Confirmed Type Apixaban [Eliquis] 5 mg PO BID 30 Days #60 tab 04/12/21 01/31/22 Rx Atorvastatin [Lipitor] 40 mg PO HS 09/28/21 01/31/22 History Digoxin [Lanoxin] 125 mcg PO DAILY 09/28/21 01/31/22 History Acetaminophen Tab [Tylenol] 325 mg PO Q6H PRN #30 tab 10/24/21 01/31/22 Rx Furosemide [Lasix] 20 mg PO DAILY tab 10/24/21 01/31/22 Rx Metoprolol Tartrate [Lopressor] 25 mg PO TID tab 10/24/21 01/31/22 Rx Calcium D 40 mg PO DAILY 01/24/22 01/31/22 History Ferrous Sulfate [Feosol] 325 mg PO DAILY 01/24/22 01/25/22 History Multivitamin [Multivitamins Adult 1 tab PO DAILY 01/24/22 01/25/22 History Gummies] Famotidine [Pepcid] 20 mg PO BID PRN 01/25/22 01/25/22 History Allergies Allergy/AdvReac Type Severity Reaction Status Date / Time No Known Allergies Allergy Verified 01/31/22 07:59 Surgical - Exam Vital Signs Temp Pulse Resp BP Pulse Ox 98.2 F 65 16 163/71 98 01/31/22 08:13 01/31/22 08:13 01/31/22 08:13 01/31/22 08:13 01/31/22 08:13 - General well developed, well nourished, no distress - Eyes PERRL - ENT normal pinna - Neck no masses - Respiratory normal expansion - Cardiovascular Rhythm: regular - Abdomen Colostomy left lower quadrant Abdomen: soft, non tender Assessment and Plan Assessment: History of perforated diverticula is. We'll perform colonoscopy. We anticipate performing reversal colostomy tomorrow.
--- NOTE | 2022-01-31 08:56 | P.OP ---
Date of Procedure: 01/31/22 Preoperative Diagnosis: History of perforated diverticulitis Postoperative Diagnosis: Mild diverticulosis Procedure(s) Performed: Colonoscopy Anesthesia: MAC Surgeon: Ronald Carranza Pathology: none sent Condition: stable Disposition: PACU Description of Procedure: The patient's placed on the endoscopy table in the lateral position. She received IV sedation. Digital rectal exam was performed which revealed a mucous stool ball in the rectal vault. This was disimpacted. The stool ball measured prostate 5 cm diameter. The flexible scope was then placed patient anus and passed throughout the rectal stump. The rectal stump measured approximately 15 cm in length. Scope was withdrawn. The patient had a colostomy left lower quadrant. The colonoscope was then placed through the colostomy in place all the way through the colon. The ileocecal valve was visually is. The cecum and ascending colon appeared normal. There was a few scattered diverticuli transverse colon and remaining descending colon. The scope withdrawn for patient.
[2022-01-31 09:20] VITALS: BP 171/75; PULSE 65; RESP 18
== END 2022-01-31 09:42 | disposition home or self-care (01) ==
LOC: ORWHC2ENDO 07:32
PROVIDERS: ATTEND Surgery
DX: K57.30 Diverticulosis of large intestine without perforation or abscess without bleeding (principal); I48.91 Unspecified atrial fibrillation; J44.9 Chronic obstructive pulmonary disease, unspecified; E78.5 Hyperlipidemia, unspecified; I10 Essential (primary) hypertension; F17.200 Nicotine dependence, unspecified, uncomplicated; Z98.51 Tubal ligation status; Z90.49 Acquired absence of other specified parts of digestive tract; Z87.448 Personal history of other diseases of urinary system; Z98.890 Other specified postprocedural states; Z93.3 Colostomy status; Z82.49 Family history of ischemic heart disease and other diseases of the circulatory system; Z80.3 Family history of malignant neoplasm of breast; Z83.3 Family history of diabetes mellitus; Z79.890 Hormone replacement therapy
CPT/HCPCS: 86900; 86901; 86850; 44388; J2704

== ENCOUNTER → 2022-08-21 | Outpatient (CLI) | payer MEDICARE ==
--- NOTE | 2022-08-22 10:42 | MM ---
Reason for Exam: Screening (asymptomatic). Last mammogram was performed 4 year(s) and 1 month(s) ago. Patient History: Menarche at age 11. First Full-Term at age 19. Postmenopausal. Estrogen, from age 57 until age 61. Mother had breast cancer, age 62. Risk Values: Monik 5 year model risk: 3.3%. Prior Study Comparison: 02/16/2015 Screening Mammogram, [facility]. 06/04/2017 Bilateral Screening Mammogram, [facility]. 06/29/2018 Bilateral Screening Mammogram, [facility]. Tissue Density: The breast tissue is heterogeneously dense. This may lower the sensitivity of mammography. Findings: Analyzed By CAD. Pattern appears symmetrical and stable. Scattered benign calcifications are present. There appears to be an intramammary lymph node at the mid upper outer left breast currently measuring 0.6 cm. Previous measurement of 0.4 cm. Additional workup is recommended with ultrasound. No suspicious groups of microcalcifications, spiculated or lobular masses, architectural distortion or other secondary signs of malignancy are mammographically apparent. Overall Assessment: Incomplete: need additional imaging evaluation, BI-RAD 0 Management: Diagnostic Breast Ultrasound of the left breast. A negative mammogram report should not preclude additional follow up of suspicious palpable abnormalities. Patient should continue monthly self breast exam. A clinical breast exam by your physician is recommended on an annual basis and results should be correlated with mammographic findings. Electronically signed and approved by: Tj Franco D.O. Radiologis
== END | disposition home or self-care (01) ==
LOC: RADMAMWWP 15:12
PROVIDERS: ATTEND Family Medicine
DX: Z12.31 Encounter for screening mammogram for malignant neoplasm of breast (principal); Z78.0 Asymptomatic menopausal state; Z80.3 Family history of malignant neoplasm of breast
CPT/HCPCS: 77063; 77067

== ENCOUNTER → 2022-08-27 | Outpatient (CLI) | payer MEDICARE ==
--- NOTE | 2022-08-27 14:18 | USB ---
Reason for Exam: Additional evaluation requested from abnormal screening. Patient History: Menarche at age 11. First Full-Term at age 19. Postmenopausal. Estrogen, from age 57 until age 61. Mother had breast cancer, age 62. Risk Values: Monik 5 year model risk: 3.3%. NCI Lifetime model risk: 9.9%. Technique: Method: Targeted. Prior Study Comparison: 06/04/2017 Bilateral Screening Mammogram, [facility]. 06/29/2018 Bilateral Screening Mammogram, [facility]. 08/21/2022 Bilateral MG 3D screening mammo w/cad, [facility]. Findings: The upper outer quadrant of the left breast, the axilla of the left breast and the retroareolar of the left breast were scanned. Lymph node identified.6 cm from the breast left 2:00 position measuring 8 x 4 mm. No solid mass is detected. Overall Assessment: Benign, BI-RAD 2 Management: Screening Mammogram of both breasts in 1 year. A clinical breast exam by your physician is recommended on an annual basis and results should be correlated with mammographic findings. This exam should not preclude additional follow-up of suspicious palpable abnormalities. Results were given to the patient verbally at the time of exam. Electronically signed and approved by: Jad Smiley M.D. Radiologis
== END | disposition home or self-care (01) ==
LOC: RADUSWWP 12:06
PROVIDERS: ATTEND Family Medicine
DX: R92.8 Other abnormal and inconclusive findings on diagnostic imaging of breast (principal); Z78.0 Asymptomatic menopausal state; Z80.3 Family history of malignant neoplasm of breast

== ENCOUNTER → 2024-03-18 | Outpatient (CLI) | payer MEDICARE ==
--- NOTE | 2024-03-22 14:35 | MM ---
Reason for Exam: Screening (asymptomatic). Last mammogram was performed 1 year(s) and 7 month(s) ago. Patient History: Menarche at age 11. First Full-Term at age 19. Postmenopausal. Estrogen, from age 57 until age 61. Mother had breast cancer, age 62. Risk Values: Monik 5 year model risk: 3.3%. NCI Lifetime model risk: 9.5%. Prior Study Comparison: 06/04/2017 Bilateral Screening Mammogram, [facility]. 06/29/2018 Bilateral Screening Mammogram, [facility]. 08/21/2022 Bilateral MG 3D screening mammo w/cad, [facility]. Tissue Density: The breasts are heterogeneously dense, which may obscure small masses. Findings: Analyzed By CAD. Right breast: There is no suspicious group of microcalcifications or new suspicious mass. Left breast: There is no suspicious group of microcalcifications or new suspicious mass. Right breast: There is no suspicious group of microcalcifications or new suspicious mass. Benign-appearing calcifications right breast. Left breast: There is no suspicious group of microcalcifications or new suspicious mass. Benign-appearing calcifications left breast. Overall Assessment: Benign, BI-RAD 2 Management: Screening Mammogram of both breasts in [address] [facility] will attempt to contact patient to return for supplemental views and ultrasound if indicated. Patient should continue monthly self-breast exams. A clinical breast exam by your physician is recommended on an annual basis. This exam should not preclude additional follow-up of suspicious palpable abnormalities. Note on Monik scores and lifetime risk: 1. A Monik score greater than 3% is considered moderate risk. If this is the case, consider specialist referral to assess eligibility for a risk reducing agent. 2. If overall lifetime risk for the development of breast cancer is 20% or higher, the patient may qualify for future screening with alternating mammogram and breast MRI. [facility], , 03/22/2024 2:32 PM. Electronically signed and approved by: Freddy Smith DO
== END | disposition home or self-care (01) ==
LOC: RADMAMWWP 12:27
PROVIDERS: ATTEND Family Medicine
CPT/HCPCS: 77063; 77067

== ENCOUNTER 2024-11-30 14:27 | Inpatient (IN) | payer MEDICARE ==
--- NOTE | 2024-11-30 15:43 | ED ---
SOB HPI - General Chief Complaint: Shortness of Breath Stated Complaint: SOB Time Seen by Provider: 11/30/24 15:40 Source: patient, RN notes reviewed, old records reviewed Mode of arrival: wheelchair Limitations: no limitations - History of Present Illness Initial Comments: This is a 69-year-old female to the ER for evaluation, today she presents for sh ortness of breath does not wear home O2 and found to have oxygen at 70% on arrival to the ER today. She continues with shortness of breath without chest pain no recent fevers increased cough and congestion no help with medications at home MD Complaint: shortness of breath -: days(s) Severity: severe Severity scale (1-10): 10 Quality: aching, throbbing Consistency: constant Improves With: nothing Worsens With: nothing Known History Of: COPD, asthma Context: recent URI, recent illness Associated Symptoms: denies other symptoms Treatments Prior to Arrival: none - Related Data Home Medications Medication Instructions Recorded Confirmed Atorvastatin [Lipitor] 40 mg PO HS 09/28/21 11/30/24 Digoxin [Lanoxin] 125 mcg PO DAILY 09/28/21 11/30/24 Albuterol Sulfate [Ventolin HFA] 25 puff INHALATION RT-Q6H PRN 11/30/24 11/30/24 Fluticasone Propion/Salmeterol 1 puff INHALATION RT-BID 11/30/24 11/30/24 [Fluticasone-Salmeterol 250-50] Vitamin D3(Unknown Dose) 1 tab PO DAILY 11/30/24 11/30/24 Warfarin [Coumadin] 2.5 mg PO SUTUTHSA@209911/30/24 11/30/24 Warfarin [Coumadin] 5 mg PO MOWEFR@209911/30/24 11/30/24 Previous Rx's Medication Instructions Recorded Metoprolol Tartrate [Lopressor] 50 mg PO BID 30 Days #120 tab 02/05/22 Allergies Allergy/AdvReac Type Severity Reaction Status Date / Time No Known Allergies Allergy Verified 11/30/24 20:02 Review of Systems ROS Statement: Those systems with pertinent positive or pertinent negative responses have been documented in the HPI. ROS Other: All systems not noted in ROS Statement are negative. Past Medical History Past Medical History: Atrial Fibrillation, COPD, Hyperlipidemia, Hypertension Additional Past Medical History / Comment(s): hx. sigmoid mass-benign History of Any Multi-Drug Resistant Organisms: None Reported Past Surgical History: Bowel Resection, Tubal Ligation Additional Past Surgical History / Comment(s): Colonoscopy. Cardioversion, bowel resection w/colostomy, appy, fallopian tube removed, repair of ureter w/stent, cystotomy in September 2021 Past Anesthesia/Blood Transfusion Reactions: No Reported Reaction Additional Past Anesthesia/Blood Transfusion Reaction / Comment(s): NO PREVIOUS ANESTHESIA Past Psychological History: No Psychological Hx Reported Smoking Status: Current every day smoker - Past Family History Father Family Medical History: Myocardial Infarction ([place]) Additional Family Medical History / Comment(s): Father of a [place] at the age of 54yrs. Mother Family Medical History: Cancer, Diabetes Mellitus Additional Family Medical History / Comment(s): BREAST CA Sister(s) Family Medical History: Cancer General Exam Limitations: altered mental status, physical limitation General appearance: alert, anxious, in distress Head exam: Present: atraumatic, normocephalic, normal inspection Eye exam: Present: normal appearance, PERRL, EOMI. Absent: scleral icterus, conjunctival injection, periorbital swelling ENT exam: Present: normal exam, mucous membranes moist Neck exam: Present: normal inspection. Absent: tenderness, meningismus, lymp hadenopathy Respiratory exam: Present: respiratory distress, wheezes, accessory muscle use, decreased breath sounds, prolonged expiratory. Absent: rales, rhonchi, stridor Cardiovascular Exam: Present: regular rate, normal rhythm, normal heart sounds. Absent: systolic murmur, diastolic murmur, rubs, gallop, clicks GI/Abdominal exam: Present: soft, normal bowel sounds. Absent: distended, tenderness, guarding, rebound, rigid Extremities exam: Present: normal inspection, full ROM, normal capillary refill. Absent: tenderness, pedal edema, joint swelling, calf tenderness Back exam: Present: normal inspection Neurological exam: Present: alert, oriented X3, CN II-XII intact Psychiatric exam: Present: normal affect, normal mood Skin exam: Present: warm, dry, intact, normal color. Absent: rash Course Vital Signs 11/30/24 11/30/24 11/30/24 15:06 15:20 15:52 Temperature 97.8 F Pulse Rate 83 87 Respiratory 26 H 24 26 H Rate Blood Pressure 135/66 131/66 O2 Sat by Pulse 77 L 95 Oximetry 11/30/24 11/30/24 11/30/24 16:00 16:19 16:30 Temperature Pulse Rate 80 74 83 Respiratory 26 H 22 28 H Rate Blood Pressure 131/66 144/91 O2 Sat by Pulse 93 L 100 Oximetry 11/30/24 11/30/24 11/30/24 16:31 17:30 21:36 Temperature Pulse Rate 79 86 84 Respiratory 24 23 20 Rate Blood Pressure 126/74 O2 Sat by Pulse 95 Oximetry 11/30/24 12/01/24 12/01/24 21:43 01:35 01:42 Temperature Pulse Rate 81 92 90 Respiratory 20 18 18 Rate Blood Pressure O2 Sat by Pulse Oximetry 12/01/24 12/01/24 01:58 01:59 Temperature 97.9 F Pulse Rate 96 89 Respiratory 18 18 Rate Blood Pressure 132/60 130/61 O2 Sat by Pulse 92 L 90 L Oximetry - Reevaluation(s) Reevaluation #1: 11/30/24 16:34 All positive medical records reviewed Reevaluation #2: 11/30/24 21:31 Patient's symptoms are severe, patient's symptoms are not much improved Reevaluation #3: 11/30/24 21:31 Patient informed of results and questions answered Reevaluation #4: Was pt. sent in by a medical professional or institution (, PA, ALLIED HEALTH TEACHER, urgent care, hospital, or usp...) When possible be specific @ -no Did you speak to anyone other than the patient for history (EMS, parent, family, police, friend...)? What history was obtained from this source @ -no Did you review nursing and triage notes (agree or disagree)? Why? @ -agree Are old charts reviewed (outside hosp., previous admission, EMS record, old EKG, old radiological studies, urgent care reports/EKG's, usp records)? Report findings @ -yes Differential Diagnosis (chest pain, altered mental status, abdominal pain women, abdominal pain men, vaginal bleeding, weakness, fever, dyspnea, syncope, headache, dizziness, GI bleed, back pain, seizure, CVA, palpatations, mental health, musculoskeletal)? @ -prior EKG interpreted by me (3pts min.). @ -yes X-rays interpreted by me (1pt min.). @ -yes with CHF CT interpreted by me (1pt min.). @ -no U/S interpreted by me (1pt. min.). @ -no What testing was considered but not performed or refused? (CT, X-rays, U/S, labs)? Why? @ -none What meds were considered but not given or refused? Why? @ -none Did you discuss the management of the patient with other professionals (professionals i.e. Dr., PA, ALLIED HEALTH TEACHER, lab, RT, psych nurse, social sciences lecturer, top frame maker, teacher, youth corrections officer, test case developer)? Give summary @ -no Was smoking cessation discussed for >3mins.? @ -no Was critical care preformed (if so, how long)? @ -yes31 Were there social determinants of health that impacted care today? How? (Homelessness, low income, unemployed, alcoholism, drug addiction, transportation, low edu. Level, literacy, decrease access to med. care, [place] [facility], rehab)? @ -none Was there de-escalation of care discussed even if they declined (Discuss DNR or withdrawal of care, Hospice)? DNR status @ -no What co-morbidities impacted this encounter? (DM, HTN, Smoking, COPD, CAD, Cancer, CVA, ARF, Chemo, Hep., AIDS, mental health diagnosis, sleep apnea, morbid obesity)? @ -none Was patient admitted / discharged? Hospital course, mention meds given and route, prescriptions, significant lab abnormalities, going to OR and other pertinent info. @ - 69-year-old female to the ER for evaluation of severe dyspnea and shortness of breath with hypoxia. CHF on x-ray severe COPD on exam, patient will be admitted for diuresis breathing treatments steroids Admitted Undiagnosed new problem with uncertain prognosis? @ -no Drug Therapy requiring intensive monitoring for toxicity (Heparin, Nitro, Insulin, Cardizem)? @ -no Were any procedures done? @ -no Diagnosis/symptom? @ -Respiratory failure CHF COPD with hypoxia Acute, or Chronic, or Acute on Chronic? @ -Acute Uncomplicated (without systemic symptoms) or Complicated (systemic symptoms)? @ -Complicated Side effects of treatment? @ -no Exacerbation, Progression, or Severe Exacerbation? @ -exacerbation Poses a threat to life or bodily function? How? (Chest pain, [place], [place], pneumonia, PE, COPD, DKA, ARF, appy, cholecystitis, CVA, Diverticulitis, Homicidal, Suicidal, threat to staff... and all critical care pts) @ -yes extremes of age Reevaluation #5: Differential Dyspnea: Coronary syndrome, arrhythmia, tamponade, asthma, COPD, pulmonary embolism, pneumonia, pneumothorax, pulmonary effusion, anaphylaxis, diabetic ketoacidosis, flailed chest, pulmonary contusion, diaphragmatic rupture, anemia, neuromuscular, this is not meant to be an all-inclusive list. - Consultations Consultation #1: Spoke with [facility] who agrees to admit this patient Medical Decision Making - Medical Decision Making 69-year-old female to the ER for evaluation of severe dyspnea and shortness of breath with hypoxia. CHF on x-ray severe COPD on exam, patient will be admitted for diuresis breathing treatments steroids - Lab Data Result diagrams: 12/02/24 05:51 12/02/24 05:51 Lab Results 11/30/24 11/30/24 11/30/24 Range/Units 15:54 15:54 15:54 WBC 9.16 (4.50-10.00) 10*3/uL RBC 4.99 (4.10-5.20) 10*6/uL Hgb 15.5 H (12.0-15.0) g/dL Hct 49.2 H (37.2-46.3) % MCV 98.6 H (80.0-97.0) fL MCH 31.1 (27.0-32.0) pg MCHC 31.5 L (32.0-37.0) g/dL Plt Count 217 (140-440) 10*3/uL MPV 9.6 (9.5-12.2) fL Immature Gran % (Auto) 0.4 % Neutrophils % 73.3 % Lymphocytes % 13.8 % Monocytes % 7.3 % Eosinophils % 4.7 % Basophils % 0.5 % Immature Gran # 0.04 (0.00-0.04) 10*3/uL Neutrophils # 6.71 (1.80-7.70) 10*3/uL Lymphocytes # 1.26 (0.90-5.00) 10*3/uL Monocytes # 0.67 (0.20-1.00) 10*3/uL Eosinophils # 0.43 H (0.04-0.35) 10*3/uL Basophils # 0.05 (0.00-0.10) 10*3/uL PT 15.5 H (10.0-12.5) sec INR 1.5 H (<1.2) APTT 25.2 (22.0-30.0) sec Sodium 139 (137-145) mmol/L Potassium 5.2 H (3.5-5.1) mmol/L Chloride 101 (98-107) mmol/L Carbon Dioxide 30 (22-30) mmol/L Anion Gap 8 mmol/L BUN 18 H (7-17) mg/dL Creatinine 0.75 (0.52-1.04) mg/dL Est GFR (CKD-EPI)AfAm >90 (>60 ml/min/1.73 sqM) Est GFR (CKD-EPI)NonAf 81 (>60 ml/min/1.73 sqM) Glucose 108 H (74-99) mg/dL Plasma Lactic Acid Justin (0.7-2.0) mmol/L Calcium 9.4 (8.4-10.2) mg/dL Magnesium 1.8 (1.6-2.3) mg/dL Total Bilirubin 0.7 (0.2-1.3) mg/dL AST 29 (14-36) U/L ALT 20 (4-34) U/L Alkaline Phosphatase 108 (38-126) U/L Troponin I (0.000-0.034) ng/mL NT-Pro-B Natriuret Pep 3130 pg/mL Total Protein 6.5 (6.3-8.2) g/dL Albumin 4.1 (3.5-5.0) g/dL 11/30/24 11/30/24 Range/Units 15:54 15:54 WBC (4.50-10.00) 10*3/uL RBC (4.10-5.20) 10*6/uL Hgb (12.0-15.0) g/dL Hct (37.2-46.3) % MCV (80.0-97.0) fL MCH (27.0-32.0) pg MCHC (32.0-37.0) g/dL Plt Count (140-440) 10*3/uL MPV (9.5-12.2) fL Immature Gran % (Auto) % Neutrophils % % Lymphocytes % % Monocytes % % Eosinophils % % Basophils % % Immature Gran # (0.00-0.04) 10*3/uL Neutrophils # (1.80-7.70) 10*3/uL Lymphocytes # (0.90-5.00) 10*3/uL Monocytes # (0.20-1.00) 10*3/uL Eosinophils # (0.04-0.35) 10*3/uL Basophils # (0.00-0.10) 10*3/uL PT (10.0-12.5) sec INR (<1.2) APTT (22.0-30.0) sec Sodium (137-145) mmol/L Potassium (3.5-5.1) mmol/L Chloride (98-107) mmol/L Carbon Dioxide (22-30) mmol/L Anion Gap mmol/L BUN (7-17) mg/dL Creatinine (0.52-1.04) mg/dL Est GFR (CKD-EPI)AfAm (>60 ml/min/1.73 sqM) Est GFR (CKD-EPI)NonAf (>60 ml/min/1.73 sqM) Glucose (74-99) mg/dL Plasma Lactic Acid Justin 1.2 (0.7-2.0) mmol/L Calcium (8.4-10.2) mg/dL Magnesium (1.6-2.3) mg/dL Total Bilirubin (0.2-1.3) mg/dL AST (14-36) U/L ALT (4-34) U/L Alkaline Phosphatase (38-126) U/L Troponin I 0.056 H* (0.000-0.034) ng/mL NT-Pro-B Natriuret Pep pg/mL Total Protein (6.3-8.2) g/dL Albumin (3.5-5.0) g/dL - EKG Data -: EKG Interpreted by Me (EKG is A-fib 80 QRS 92 QTc 369) - Radiology Data Radiology results: report reviewed (Chest x-ray positive for CHF), image reviewed Critical Care Time Critical Care Time: Yes Total Critical Care Time: 31 Disposition Clinical Impression: COPD with acute exacerbation, Atrial fibrillation with rapid ventricular respon se, Asthma with acute exacerbation, Acute exacerbation of chronic obstructive pulmonary disease, Acute pulmonary edema, Congestive heart failure, Acute respiratory failure, Hypoxia Disposition: ADMITTED IP TO THIS HOSP Condition: Serious Is patient prescribed a controlled substance at d/c from ED?: No Time of Disposition: 20:00
[2024-11-30] MEDS: methylPREDNISolone SOD SUCCI 125 MG/2 ML VIAL IV STA (16:11)
[2024-11-30] MEDS: LACTATED RINGERS 1,000 ML IV SCH (16:11)
[2024-11-30] MEDS: IPRATROPIUM-ALBUTEROL 3 ML NEB INHALATION STA ×2 (16:17→21:36)
[2024-11-30 16:31] LABS: Basophils # (A) 0.05 10*3/uL (0.00-0.10); Basophils % (A) 0.5 %; Eosinophils # (A) 0.43 10*3/uL (0.04-0.35); Eosinophils % (A) 4.7 %; HCT 49.2 % (37.2-46.3); HGB 15.5 g/dL (12.0-15.0); Lymphocytes # (A) 1.26 10*3/uL (0.90-5.00); Lymphocytes % (A) 13.8 %; MCH 31.1 pg (27.0-32.0); MCHC 31.5 g/dL (32.0-37.0); MCV 98.6 fL (80.0-97.0); Monocytes # (A) 0.67 10*3/uL (0.20-1.00); Monocytes % (A) 7.3 %; Neutrophils # (A) 6.71 10*3/uL (1.80-7.70); Neutrophils % (A) 73.3 %; Platelet Count 217 10*3/uL (140-440); RBC 4.99 10*6/uL (4.10-5.20); RDW 15.0 % (11.5-14.5); WBC 9.16 10*3/uL (4.50-10.00)
[2024-11-30 16:35] LABS: ALT 20 U/L (4-34); AST 29 U/L (14-36); African American GFR (CKD) >90 (>60 ml/min/1.73 sqM); Albumin 4.1 g/dL (3.5-5.0); Alkaline Phosphatase 108 U/L (38-126); Anion Gap 8 mmol/L; Blood Urea Nitrogen 18 mg/dL (7-17); Calcium 9.4 mg/dL (8.4-10.2); Carbon Dioxide 30 mmol/L (22-30); Chloride 101 mmol/L (98-107); Glucose 108 mg/dL (74-99); Magnesium 1.8 mg/dL (1.6-2.3); Non-African American GFR(CKD) 81 (>60 ml/min/1.73 sqM); Potassium 5.2 mmol/L (3.5-5.1); Sodium 139 mmol/L (137-145); Total Protein 6.5 g/dL (6.3-8.2)
[2024-11-30 16:39] LABS: NT-Pro-B-Type Natriuretic Pept 3130 pg/mL
[2024-11-30 16:42] LABS: INR 1.5 (<1.2); Partial Thromboplastin Time 25.2 sec (22.0-30.0); Prothrombin Time 15.5 sec (10.0-12.5)
[2024-11-30] MEDS: SODIUM CHLORIDE 0.9% 1,000 ML IV SCH (17:07)
--- NOTE | 2024-11-30 17:51 | XR ---
EXAMINATION TYPE: XR chest 2V DATE OF EXAM: 11/30/2024 5:47 PM COMPARISON: Chest radiographs from chest radiograph 02/04/2022 TECHNIQUE: XR chest 2V Frontal and lateral views of the chest. CLINICAL INDICATION:Female, 69 years old with history of difficulty breathing; FINDINGS: Lungs/Pleura: There is no evidence of pleural effusion, focal consolidation, or pneumothorax. Pulmonary vascularity: Pulmonary vascular congestion. Heart/mediastinum: Cardiomediastinal silhouette is enlarged and stable. Atherosclerotic calcificatio ns are seen in the aorta. Musculoskeletal: No acute osseous pathology. IMPRESSION: Cardiomegaly and mild pulmonary vascular congestion. Correlate with BNP for congestive heart failure. [facility], , 11/30/2024 5:49 PM
[2024-11-30] MEDS ORDERED: ONDANSETRON 4 MG/2 ML VIAL IVP PRN (21:27)
[2024-11-30] MEDS ORDERED: NALOXONE 0.4 MG/ML 1 ML VIAL IV PRN (21:27)
[2024-11-30] MEDS ORDERED: MORPHINE SULFATE 4 MG/ML SYRINGE IV PRN (21:27)
[2024-11-30] MEDS: FUROSEMIDE 10 MG/ML 4 ML VIAL IV SCH (23:07)
[2024-12-01] MEDS: ALBUTEROL NEBULIZED 2.5 MG/3 ML INHALATION SCH (01:35)
[2024-12-01] MEDS: methylPREDNISolone SOD SUCCI 125 MG/2 ML VIAL IV SCH ×2 (01:51→17:28)
[2024-12-01] MEDS: NITROGLYCERIN OINT 1 INCH/GM PACKET TOPICAL SCH (01:53)
--- NOTE | 2024-12-01 03:03 | P.CNPUL ---
History of Present Illness Consult date: 12/01/24 Requesting physician: Tj Leavitt Chief complaint: Shortness of breath History of present illness: Patient is a 69-year-old female with past medical history significant for chronic atrial fibrillation, hypertension, hyperlipidemia, coronary artery disease, diverticulitis, abdominal mass, bowel resection. She is a current 1 pack/day smoker, with over 20-cceb-jlya history. Also, noted to have severe COPD with an FEV1 33% of predicted. Presented to the emergency department yesterday afternoon with a chief complaint of shortness of breath. Found to be hypoxic with an SpO2 of 70%. She was placed on supplemental oxygen. Workup in the emergency department including a chest x-ray showing cardiomegaly and pulmonary vascular congestion. NT proBNP 3130. Remaining labs including a CBC with a WBC count of 9.2, hemoglobin 15.5, platelets 217. CMP with a sodium 139, potassium 5.2, chloride 101, serum bicarb 30, BUN 18, creatinine 0.75, glucose 108. Lactic non-elevated. Troponin 0.056. EKG: Atrial fibrillation with controlled ventricular response, rate 80 BPM, ST deviation and moderate t wave abnormality in the inferior leads. Heart catheterization from 2021 remarkable for totally occluded RCA with collaterals and 40% LAD stenosis. Medical management was recommended at that time. Echocardiogram from 2021 estimating left-ventricular ejection fraction of 55 to 60%. She states she previously fol lowed with Dr. Mecca Perez, but more recently seeing somebody else. Patient being seen in the emergency department. On 3 L/min nasal cannula. Nondistressed. Smells of tobacco smoke. States her shortness of breath started approximately 4 days ago. Worsens with exertion. She does not routinely use her maintenance inhaler. She has been using her albuterol rescue inhaler, states this provides her with some relief. Admits occasional congested cough with frothy white sputum. Denies any sputum purulence or hemoptysis. Denies any fevers or chills. Denies any sick contacts or travel. She continues to smoke 1 pack/day. Does endorse substernal chest pain with exertion, nonradiating, which subsides with rest. None currently. She has nitroglycerin paste on. She denies any heart palpitations, syncopal events, orthopnea, lower extremity edema. Previously, started on 40 mg of IV Lasix twice daily. Additionally, loaded with IV Solu-Medrol and given multiple DuoNebs. Vitals: Temperature 97.9 F, heart rate 96 bpm, blood pressure 132/60 mmHg, nontachypneic, SPO2 recorded at 92% on 3 L/min nasal cannula. Review of Systems REVIEW OF SYSTEMS: CONSTITUTIONAL: Denies any recent significant weight loss or weight gain. EYES: Denies change in vision. EARS, NOSE, MOUTH, THROAT: Denies rhinorrhea, sore throat, sinus pressure/pain, headaches. CARDIOVASCULAR: see HPI RESPIRATORY: See HPI GASTROINTESTINAL: Denies change in appetite, abdominal pain, nausea and vomitin g, or diarrhea GENITOURINARY: Denies hematuria, denies infections. MUSKULOSKELETAL: Denies pain, denies swelling. INTEGUMENTARY: Denies rash, denies eczema. NEUROLOGICAL: Denies recent memory loss, no recent seizure activity. PSYCHIATRIC: Denies anxiety, denies depression. HEMATOLOGIC/LYMPHATIC: Denies anemia, denies enlarged lymph node Past Medical History Past Medical History: Atrial Fibrillation, COPD, Hyperlipidemia, Hypertension Additional Past Medical History / Comment(s): hx. sigmoid mass-benign History of Any Multi-Drug Resistant Organisms: None Reported Past Surgical History: Bowel Resection, Tubal Ligation Additional Past Surgical History / Comment(s): Colonoscopy. Cardioversion, bowel resection w/colostomy, appy, fallopian tube removed, repair of ureter w/stent, cystotomy in September 2021 Past Anesthesia/Blood Transfusion Reactions: No Reported Reaction Additional Past Anesthesia/Blood Transfusion Reaction / Comment(s): NO PREVIOUS ANESTHESIA Past Psychological History: No Psychological Hx Reported Smoking Status: Current every day smoker - Past Family History Father Family Medical History: Myocardial Infarction ([place]) Additional Family Medical History / Comment(s): Father of a [place] at the age of 54yrs. Mother Family Medical History: Cancer, Diabetes Mellitus Additional Family Medical History / Comment(s): BREAST CA Sister(s) Family Medical History: Cancer Medications and Allergies Home Medications Medication Instructions Recorded Confirmed Type Atorvastatin [Lipitor] 40 mg PO HS 09/28/21 11/30/24 History Digoxin [Lanoxin] 125 mcg PO DAILY 09/28/21 11/30/24 History Metoprolol Tartrate [Lopressor] 50 mg PO BID 30 Days #120 tab 02/05/22 11/30/24 Rx Albuterol Sulfate [Ventolin HFA] 25 puff INHALATION RT-Q6H PRN 11/30/24 11/30/24 History Fluticasone Propion/Salmeterol 1 puff INHALATION RT-BID 11/30/24 11/30/24 History [Fluticasone-Salmeterol 250-50] Vitamin D3(Unknown Dose) 1 tab PO DAILY 11/30/24 11/30/24 History Warfarin [Coumadin] 2.5 mg PO SUTUTHSA@209911/30/24 11/30/24 History Warfarin [Coumadin] 5 mg PO MOWEFR@209911/30/24 11/30/24 History Allergies Allergy/AdvReac Type Severity Reaction Status Date / Time No Known Allergies Allergy Verified 11/30/24 20:02 Physical Exam Vitals: Vital Signs Temp Pulse Resp BP Pulse Ox 11/30/24 21:43 81 20 11/30/24 21:36 84 20 11/30/24 17:30 86 23 126/74 95 11/30/24 16:31 79 24 11/30/24 16:30 83 28 H 144/91 100 11/30/24 16:19 74 22 11/30/24 16:00 80 26 H 131/66 93 L 11/30/24 15:52 87 26 H 131/66 95 11/30/24 15:20 24 11/30/24 15:06 97.8 F 83 26 H 135/66 77 L Intake and Output 11/30/24 11/30/24 12/01/24 14:59 22:59 06:59 Other: Weight 61.235 kg GENERAL EXAM: Alert, 69-year-old female, comfortable in no apparent distress. HEAD: Normocephalic and atraumatic EYES: Normal reaction of pupils, equal size. NOSE: Clear with pink turbinates. THROAT: No erythema or exudates. NECK: No masses, no JVD. CHEST: No chest wall deformity. LUNGS: Equal air entry with markedly diminished lung sounds bilaterally throughout. No crackles, wheeze, rhonchi. On 3 L/min nasal cannula. No conversational dyspnea or accessory muscle use.. CVS: S1 and S2 normal with no audible murmur, irregular rhythm. No extra heart sounds ABDOMEN: No hepatosplenomegaly, active bowel sounds, no guarding or rigidity. SPINE: No scoliosis or deformity SKIN: No rashes CENTRAL NERVOUS SYSTEM: No focal deficits, tone is normal in all 4 extremities. EXTREMITIES: There is no peripheral edema, clubbing, or cyanosis. Peripheral pulses are intact. Results - Laboratory Findings CBC and BMP: 11/30/24 15:54 11/30/24 15:54 PT/INR, D-dimer PT 15.5 sec (10.0-12.5) H 11/30/24 15:54 INR 1.5 (<1.2) H 11/30/24 15:54 Abnormal lab findings: Abnormal Labs 11/30/24 11/30/24 07 15:54 15:54 15:54 Hgb 15.5 H Hct 49.2 H MCV 98.6 H MCHC 31.5 L Eosinophils # 0.43 H PT 15.5 H INR 1.5 H Potassium 5.2 H BUN 18 H Glucose 108 H Troponin I 11/30/24 15:54 Hgb Hct MCV MCHC Eosinophils # PT INR Potassium BUN Glucose Troponin I 0.056 H* - Diagnostic Findings Chest x-ray: image reviewed Assessment and Plan Assessment: Acute CHF exacerbation, previously with preserved left ventricular ejection fraction Acute COPD exacerbation Acute hypoxemic respiratory failure, currently on 2 L/min nasal cannula; chest x-ray showing cardiomegaly and pulmonary vascular congestion. NT proBNP 3130. Elevated troponins, rule out non-ST elevation [place] History of coronary artery disease Benign essential hypertension History of hyperlipidemia Chronic atrial fibrillation, chronically anticoagulated on Coumadin, INR 1.5 History of abdominal mass with previous partial colectomy, partial cystectomy, left salpingectomy, appendectomy, and left ureter repair Current ongoing tobacco dependence, with over 81-brso-kqam history Severe COPD, with FEV1 33% of predicted, she been noncompliant with her maintenance inhaler, she does use a as needed albuterol rescue inhaler and nebulizer Plan: Patient's medications, labs, imaging reviewed Continue supplemental oxygen maintain oxygen saturation of 90% or greater Repeat chest x-ray in the morning Continue combination of DuoNebs and IV Solu-Medrol Add Symbicort inhaler Transthoracic echocardiogram is ordered Continues on Lasix 40 mg twice daily Cardiology is consulted We will also continue to follow I have personally seen and examined the patient, performed the documentation and the assessment and plan as written. Number of minutes spent on the visit:20 This dictation was produced using [employer] dictation software please excuse grammatical errors Time with Patient: Greater than 30
[2024-12-01 04:42] LABS: RSV Not Detected (Not Detectd)
--- NOTE | 2024-12-01 07:24 | XR ---
EXAMINATION TYPE: XR chest 1V DATE OF EXAM: 12/01/2024 6:52 AM COMPARISON: Chest radiographs from 11/30/2024, CT chest 08/20/2021 TECHNIQUE: XR chest 1V Portable AP radiograph of the chest. CLINICAL INDICATION:Female, 69 years old with history of chf; FINDINGS: Lungs/Pleura: There is no evidence of pleural effusion, focal consolidation, or pneumothorax. Hyperi nflation with chronic interstitial prominence. Heart/mediastinum: Cardiomediastinal silhouette is enlarged and stable. Atherosclerotic calcificatio ns are seen in the aorta. Musculoskeletal: No acute osseous pathology. IMPRESSION: 1. No focal consolidation. 2. Background emphysematous changes of chronic interstitial images. [facility], , 12/01/2024 7:22 AM
[2024-12-01 07:30] LABS: Basophils # (A) 0.02 10*3/uL (0.00-0.10); Basophils % (A) 0.2 %; Eosinophils # (A) 0.00 10*3/uL (0.04-0.35); Eosinophils % (A) 0.0 %; HCT 47.1 % (37.2-46.3); HGB 14.9 g/dL (12.0-15.0); Lymphocytes # (A) 0.55 10*3/uL (0.90-5.00); Lymphocytes % (A) 5.2 %; MCH 31.1 pg (27.0-32.0); MCHC 31.6 g/dL (32.0-37.0); MCV 98.3 fL (80.0-97.0); Monocytes # (A) 0.13 10*3/uL (0.20-1.00); Monocytes % (A) 1.2 %; Neutrophils # (A) 9.83 10*3/uL (1.80-7.70); Neutrophils % (A) 92.8 %; Platelet Count 236 10*3/uL (140-440); RBC 4.79 10*6/uL (4.10-5.20); RDW 14.6 % (11.5-14.5); WBC 10.59 10*3/uL (4.50-10.00)
[2024-12-01 07:50] LABS: ALT 18 U/L (4-34); AST 24 U/L (14-36); African American GFR (CKD) 77 (>60 ml/min/1.73 sqM); Albumin 3.8 g/dL (3.5-5.0); Alkaline Phosphatase 107 U/L (38-126); Anion Gap 12 mmol/L; Blood Urea Nitrogen 24 mg/dL (7-17); Calcium 9.2 mg/dL (8.4-10.2); Carbon Dioxide 27 mmol/L (22-30); Chloride 101 mmol/L (98-107); Glucose 159 mg/dL (74-99); Magnesium 1.8 mg/dL (1.6-2.3); Non-African American GFR(CKD) 67 (>60 ml/min/1.73 sqM); Potassium 4.5 mmol/L (3.5-5.1); Sodium 140 mmol/L (137-145); Total Protein 6.1 g/dL (6.3-8.2)
[2024-12-01] MEDS: SYMBICORT 160-4.5 MCG INHALER INHALATION SCH (08:35)
[2024-12-01] MEDS: IPRATROPIUM-ALBUTEROL 3 ML NEB INHALATION SCH (08:36)
[2024-12-01] MEDS: LOSARTAN 25 MG TAB PO STA (12:09)
[2024-12-01] MEDS: DIGOXIN 125 MCG TAB PO SCH (12:09)
[2024-12-01] MEDS: ATORVASTATIN 40 MG TAB PO SCH (12:09)
--- NOTE | 2024-12-01 12:18 | CA ---
Transthoracic Echo Report Name: Aide Menon Age: 69 Gender: F : 1955 Exam Date: 12/01/2024 07:50 Exam Location: [facility] Ht (in): 64 Wt (lb): 135 Ordering Physician: Tj Leavitt DO Attending/Referring Phys: [id number], Dagmar Induction Coordination Power Engineer Kendra Smiley RDCS Procedure CPT: Indications: Heart failure Cardiac Hx: Technical Quality: Fair Contrast 1: Total Dose (mL): Contrast 2: Total Dose (mL): MEASUREMENTS (Male / Female) Normal Values 2D ECHO LV Diastolic Diameter PLAX 2.9 cm 4.2 - 5.9 / 3.9 - 5.3 cm LV Systolic Diameter PLAX 1.6 cm IVS Diastolic Thickness 1.2 cm 0.6 - 1.0 / 0.6 - 0.9 cm LVPW Diastolic Thickness 1.4 cm 0.6 - 1.0 / 0.6 - 0.9 cm LV Relative Wall Thickness 0.9 RV Internal Dim ED PLAX 2.8 cm LA Systolic Diameter LX 5.4 cm 3.0 - 4.0 / 2.7 - 3.8 cm LV Diastolic Volume MOD BP 32.9 cm??? 67 - 155 / 56 - 104 cm??? LV Systolic Volume MOD BP 12.8 cm??? - 58 / 19 - 49 cm??? LV Ejection Fraction MOD BP 61.1 % >= 55 % LV Cardiac Index MOD BP 1061.0 cm???/min???m??? LV Diastolic Volume MOD 4C 34.8 cm??? LV Systolic Volume MOD 4C 16.5 cm??? LV Ejection Fraction MOD 4C 52.7 % LV Cardiac Index MOD 4C 968.1 cm???/min???m??? LV Diastolic Length 4C 6.0 cm LV Systolic Length 4C 4.8 cm LV Diastolic Volume MOD 2C 28.7 cm??? LV Systolic Volume MOD 2C 7.6 cm??? LV Ejection Fraction MOD 2C 73.5 % LV Cardiac Index MOD 2C 1112.8 cm???/min???m??? LV Diastolic Length 2C 5.5 cm LV Systolic Length 2C 4.9 cm LA Volume 77.8 cm??? 18 - 58 / 22 - 52 cm??? LA Volume Index 46.6 cm???/m??? 16 - 28 cm???/m??? M-MODE Aortic Root Diameter MM 3.1 cm LA Systolic Diameter MM 5.2 cm LA Ao Ratio MM 1.7 AV Cusp Separation MM 1.8 cm DOPPLER AV Peak Velocity 230.8 cm/s AV Peak Gradient 21.3 mmHg AV Mean Velocity 142.5 cm/s AV Mean Gradient 10.0 mmHg AV Velocity Time Integral 38.2 cm AI Peak Velocity 386.0 cm/s AI Peak Gradient 59.6 mmHg AI Pressure Half Time 477.4 ms LVOT Peak Velocity 145.4 cm/s LVOT Peak Gradient 8.5 mmHg LVOT Velocity Time Integral 31.1 cm MV Peak Velocity 185.0 cm/s MV Peak Gradient 13.7 mmHg MV Mean Velocity 116.4 cm/s MV Mean Gradient 6.5 mmHg MV Velocity Time Integral 39.1 cm MV Area PHT 1.8 cm??? Mitral E Point Velocity 158.7 cm/s Mitral A Point Velocity 1.4 cm/s Mitral E to A Ratio 115.6 MV Deceleration Time 414.6 ms TR Peak Velocity 275.1 cm/s TR Peak Gradient 30.3 mmHg PV Peak Velocity 148.5 cm/s PV Peak Gradient 8.8 mmHg FINDINGS Left Ventricle Left ventricular ejection fraction is estimated at 65-70 %. Mildly increased septal wall thickness. Moderately increased posterior wall thickness. Moderate concentric left ventricular hypertrophy. Hyperdynamic left ventricular systolic function. Mid cavity gradient 33 mmHg. Right Ventricle Normal right ventricular size and function. Right ventricular systolic pressure within normal limits. Right Atrium Mild right atrial dilatation. Left Atrium Severely increased left atrial diameter. Severely increased left atrial volume. Mitral Valve Mitral valve thickened. Moderate mitral stenosis, MV Mean PG 6.5 mmHg . Mild mitral regurgitation. Aortic Valve Trileaflet aortic valve. Very mild aortic stenosis with a peak gradient of 21 mmHg and a mean gradient of 10 mmHg. [id number]-[id number] aortic regurgitation. Tricuspid Valve Structurally normal tricuspid valve. No tricuspid stenosis. Trace tricuspid regurgitation. Pulmonic Valve Structurally normal pulmonic valve. No pulmonic stenosis. No pulmonic regurgitation. Pericardium Normal pericardium. No pericardial effusion. Aorta Normal size aortic root and proximal ascending aorta. CONCLUSIONS Reason for echo: Congestive heart failure/shortness of breath LVH with preserved systolic function Left atrial enlargement Right atrial enlargement Gradient across the mitral valve of around 6 mmHg Mild aortic stenosis, calcific Previewed by: Dr. Adrián Nuñez MD (Electronically Signed) Final Date: 01 December 2024 12:17
--- NOTE | 2024-12-01 13:24 | P.CRDCN ---
History of Present Illness Consult date: 12/01/24 History of present illness: HISTORY OF PRESENTING ILLNESS: 69-year-old female previously known to Dr. Perez Prior history of chronic atrial fibrillation failed rhythm control in past. Currently on rate control strategy with digoxin and metoprolol. Also history of hypertension dyslipidemia CAD, abdominal possible bowel resection, current 1 pack smoker, [id number] smoking history with advanced COPD with FEV1 of 33% predicted. He presented to the hospital because of increased worsening shortness of breath, hypoxic on admission SPO2 70%, does not use oxygen at home. Chest x-ray shows mild congestion, rate controlled atrial fibrillation on EKG, at the time of e valuation she is already feeling better after receiving IV diuretics. Home cardiac medication digoxin 125 mcg, metoprolol 50 twice daily, Lipitor 40, warfarin ........................................ ................................................................................ ...................... [facility] Vitals: 152/66, repeat 131/63, heart rate 89 bpm [facility] Labs: Hb 14, sodium 140, potassium 4.5, BUN 25, creatinine 0.8, troponin flat at 0.05, TSH 0.3 EKG: Rate controlled atrial fibrillation with nonspecific ST changes with downsloping ST segments. EKG appears very similar to past EKG from 2021. [facility] Imaging: Hyperinflated lungs, no consolidation, mild increased interstitial marking ................................................................................ .............................................................. Prior cardiac testing: Echo from this admission EF 65 to 70%, moderate concentric LVH, hyperdynamic LV, mid LV ventricular gradients 33 mmHg, severe left atrial dilatation, mild mitral stenosis, mean gradient 6.5 mmHg, moderate aortic regurgitation, Cardiac catheter 2021 shows dominant RCA totally occluded with [id number] collaterals, normal LVEDP, left main is patent, ramus is good caliber patent, LAD has 45% ostial disease with good flow, LCx is small and patent. ............................................................................ .................................................................. REVIEW OF SYSTEMS: 14 point review of system is negative except what is mentioned above in HPI. ..................................... ................................................................................ ......................... PHYSICAL EXAMINATION: Neck: Brisk carotid upstroke, no jugular venous distention. Lungs: Overall clear, no significant crackles, no significant wheeze Heart: Irregular rate and rhythm, S1-S2, mild systolic Abdomen: Soft nontender, positive bowel sounds. Extremities: No edema, intact distal pulses. Neuro: Alert, oritented, no focal deficits. Detailed neuro exam was not performed. ........... ................................................................................ ................................................... ASSESSMENT: # Acute hypoxic respiratory failure likely mild COPD exacerbation and mild CHF exacerbation # Mild HFpEF exacerbation # Chronic atrial fibrillation, failed rhythm control. Currently on rate control strategy. # Tobacco smoker. 50 pack smoker # Advanced emphysema COPD with FEV1 33% PLAN: Continue digoxin 125 mcg daily, Lipitor 40, warfarin Increase dose of metoprolol Discontinue IV Lasix and start p.o. Bumex 1 mg daily Monitor electrolytes and kidney function tomorrow Vasyl Chris MD, [facility], [facility] Past Medical History Past Medical History: Atrial Fibrillation, COPD, Hyperlipidemia, Hypertension Additional Past Medical History / Comment(s): hx. sigmoid mass-benign History of Any Multi-Drug Resistant Organisms: None Reported Past Surgical History: Bowel Resection, Tubal Ligation Additional Past Surgical History / Comment(s): Colonoscopy. Cardioversion, bowel resection w/colostomy, appy, fallopian tube removed, repair of ureter w/stent, cystotomy in September 2021 Past Anesthesia/Blood Transfusion Reactions: No Reported Reaction Additional Past Anesthesia/Blood Transfusion Reaction / Comment(s): NO PREVIOUS ANESTHESIA Past Psychological History: No Psychological Hx Reported Smoking Status: Current every day smoker - Past Family History Father Family Medical History: Myocardial Infarction ([place]) Additional Family Medical History / Comment(s): Father of a [place] at the age of 54yrs. Mother Family Medical History: Cancer, Diabetes Mellitus Additional Family Medical History / Comment(s): BREAST CA Sister(s) Family Medical History: Cancer Medications and Allergies Home Medications Medication Instructions Recorded Confirmed Type Atorvastatin [Lipitor] 40 mg PO HS 09/28/21 11/30/24 History Digoxin [Lanoxin] 125 mcg PO DAILY 09/28/21 11/30/24 History Metoprolol Tartrate [Lopressor] 50 mg PO BID 30 Days #120 tab 02/05/22 11/30/24 Rx Albuterol Sulfate [Ventolin HFA] 25 puff INHALATION RT-Q6H PRN 11/30/24 11/30/24 History Fluticasone Propion/Salmeterol 1 puff INHALATION RT-BID 11/30/24 11/30/24 History [Fluticasone-Salmeterol 250-50] Vitamin D3(Unknown Dose) 1 tab PO DAILY 11/30/24 11/30/24 History Warfarin [Coumadin] 2.5 mg PO SUTUTHSA@209911/30/24 11/30/24 History Warfarin [Coumadin] 5 mg PO MOWEFR@209911/30/24 11/30/24 History Allergies Allergy/AdvReac Type Severity Reaction Status Date / Time No Known Allergies Allergy Verified 11/30/24 20:02 Physical Exam Vitals: Vital Signs Temp Pulse Pulse Resp BP BP Pulse Ox 12/01/24 12:05 98 F 100 14 131/63 89 L 12/01/24 11:59 89 12/01/24 11:54 86 91 L 12/01/24 08:48 90 L 12/01/24 08:45 88 L 12/01/24 08:42 97.6 F 88 14 137/66 87 L 12/01/24 04:58 90 20 12/01/24 04:00 98.2 F 90 20 144/70 93 L 12/01/24 02:55 98.2 F 84 20 152/66 91 L 12/01/24 01:59 89 18 130/61 90 L 12/01/24 01:58 97.9 F 96 18 132/60 92 L 12/01/24 01:42 90 18 12/01/24 01:35 92 18 11/30/24 21:43 81 20 11/30/24 21:36 84 20 11/30/24 17:30 86 23 126/74 95 11/30/24 16:31 79 24 11/30/24 16:30 83 28 H 144/91 100 07/08/25 16:19 74 22 11/30/24 16:00 80 26 H 131/66 93 L 11/30/24 15:52 87 26 H 131/66 95 11/30/24 15:20 24 11/30/24 15:06 97.8 F 83 26 H 135/66 77 L Intake and Output 11/30/24 12/01/24 12/01/24 22:59 06:59 14:59 Intake Total 240 Balance 240 Intake: Oral 240 Other: Weight 61.235 kg 61.6 kg Results 12/01/24 06:58 12/01/24 06:58 Cardiac Enzymes 11/30/24 11/30/24 12/01/24 Range/Units 15:54 15:54 00:40 AST 29 (14-36) U/L Troponin I 0.056 H* 0.053 H* (0.000-0.034) ng/mL 12/01/24 Range/Units 06:58 AST 24 (14-36) U/L Troponin I (0.000-0.034) ng/mL Coagulation 11/30/24 Range/Units 15:54 PT 15.5 H (10.0-12.5) sec APTT 25.2 (22.0-30.0) sec CBC 11/30/24 12/01/24 Range/Units 15:54 06:58 WBC 9.16 10.59 H (4.50-10.00) 10*3/uL RBC 4.99 4.79 (4.10-5.20) 10*6/uL Hgb 15.5 H 14.9 (12.0-15.0) g/dL Hct 49.2 H 47.1 H (37.2-46.3) % Plt Count 217 236 (140-440) 10*3/uL Comprehensive Metabolic Panel 11/30/24 12/01/24 Range/Units 15:54 06:58 Sodium 139 140 (137-145) mmol/L Potassium 5.2 H 4.5 (3.5-5.1) mmol/L Chloride 101 101 (98-107) mmol/L Carbon Dioxide 30 27 (22-30) mmol/L BUN 18 H 24 H (7-17) mg/dL Creatinine 0.75 0.88 (0.52-1.04) mg/dL Glucose 108 H 159 H (74-99) mg/dL Calcium 9.4 9.2 (8.4-10.2) mg/dL AST 29 24 (14-36) U/L ALT 20 18 (4-34) U/L Alkaline Phosphatase 108 107 (38-126) U/L Total Protein 6.5 6.1 L (6.3-8.2) g/dL Albumin 4.1 3.8 (3.5-5.0) g/dL Current Medications Generic Name Dose Route Start Last Admin Trade Name Freq PRN Reason Stop Dose Admin Albuterol/Ipratropium 3 ml 12/01/24 08:00 12/01/24 11:50 Ipratropium-Albuterol 3 Ml Neb INHALATION 3 ml RT-QID PALLAVI Administration Atorvastatin Calcium 40 mg 12/01/24 11:30 12/01/24 12:09 Atorvastatin 40 Mg Tab PO 40 mg DAILY PALLAVI Administration Budesonide/Formoterol Fumarate 2 puff 12/01/24 08:00 12/01/24 08:35 Symbicort 160-4.5 Mcg Inhaler INHALATION Not Given RT-BID PALLAVI Bumetanide 1 mg 12/02/24 09:00 Bumetanide 1 Mg Tab PO DAILY PALLAVI Digoxin 125 mcg 12/01/24 11:30 12/01/24 12:09 Digoxin 125 Mcg Tab PO 125 mcg DAILY PALLAVI Administration Methylprednisolone Sodium Succinate 40 mg 12/01/24 16:00 Methylprednisolone Sod Succi 125 Mg/2 Ml Vial IV Q8HR [facility] Metoprolol Tartrate 50 mg 12/01/24 21:00 Metoprolol Tartrate 50 Mg Tab PO BID [facility] Morphine Sulfate 4 mg 11/30/24 21:27 Morphine Sulfate 4 Mg/Ml Syringe IV Q4HR PRN Severe Pain (Scale 7 to 10) Naloxone HCl 0.2 mg 11/30/24 21:27 Naloxone 0.4 Mg/Ml 1 Ml Vial IV Q2M PRN Opioid Reversal Nitroglycerin 1 inch 12/01/24 00:00 12/01/24 12:47 Nitroglycerin Oint 1 Inch/Gm Packet TOPICAL 12/02/24 00:00 Not Given Q6HR [facility] Ondansetron HCl 4 mg 11/30/24 21:27 Ondansetron 4 Mg/2 Ml Vial IVP Q8HR PRN Nausea And Vomiting Intake and Output 11/30/24 12/01/24 12/01/24 22:59 06:59 14:59 Intake Total 240 Balance 240 Intake: Oral 240 Other: Weight 61.235 kg 61.6 kg 12/01/24 06:58 12/01/24 06:58
[2024-12-01 14:01] VITALS: BMI 23.3
[2024-12-01 14:01] LABS: T4, Free (Free Thyroxine) 1.04 ng/dL (0.78-2.19)
--- NOTE | 2024-12-01 16:40 | P.HPIM ---
History of Present Illness Chief Complaint: Hypoxia secondary to History of present illness: 69 yo female with past medical history significant for COPD with an FEV1 33%, chronic atrial fibrillation on warfarin, hypertension, hyperlipidemia, coronary artery disease, diverticulitis, abdominal mass, bowel resection. She is presenting to the ER with shortness of breath. Found to be hypoxic at the time with an SpO2 of 70% on room air. She reported experiencing sudden onset of SOB 5 days ago. She reported increase in her activity prior to that due to November 26 celebration and was feeling well. She denied chest pain and palpitations intitially but noticed palpitations 3 days after which worsened progressively. Initially reluctant to attend ER but was advised by her PCP to come to seek immediate treatment at the hospital. She reported being place on oxygen at home 3 years ago for a duration of 3 months. She cannot recall the oxygen level however and reported discontinuing the at home treatments after performing a stress test and being cleared. She reports using her albuteral rescue inhaler at home and states this has provided her with some relief. She admits occasional cough with frothy white sputum on lying down and well as occational dyspnea on exertion. She denies orthopnea. She is a current smoker of 1 pack/day, for over 50 years. While in the ER, patient NT proBNP 3130, WBC count of 9.2, hemoglobin 15.5, platelets 217, odium 139, potassium 5.2, chloride 101, serum bicarb 30, BUN 18, creatinine 0.75, glucose 108, Lactic non-elevated and Troponin 0.056 (serial trops being perfomed and downtrending). An EKG performed indicated atrial fibrillation with controlled ventricular response, rate 80 BPM, ST deviation and moderate t wave abnormality in the inferior leads. Chest x-ray ruling out focal consolidations but positive for emphysematous changes of chronic interstitial images. Of note, patient had a cardiac catheterization from 2021 remarkable for a complete occlusion of RCA with collaterals and 40% LAD stenosis for which medical management was recommended. Patient is currently placed on 5 L of oxygen for SPO2 90%. Patient is admitted as inpatient REVIEW OF SYSTEMS: As stated above in HPI. The rest of the 14-point review of systems is negative. PHYSICAL EXAMINATION: GENERAL: The patient is alert and oriented x3, not in any acute distress. Well developed, well nourished. HEENT: Pupils are round and equally reacting to light. EOMI. No scleral icterus. No conjunctival pallor. Normocephalic, atraumatic. CARDIOVASCULAR: S1 and S2 present. PULMONARY: Chest is clear to auscultation b/l, no wheezing or crackles. ABDOMEN: Soft, nontender, nondistended, normoactive bowel sounds. No palpable organomegaly. MUSCULOSKELETAL: No joint swelling or deformity. EXTREMITIES: No cyanosis, clubbing, or pedal edema. No peripheral edema. NEUROLOGICAL: Gross neurological examination did not reveal any focal deficits. SKIN: No rashes. Assessment and Plan: # Acute hypoxic respiratory failure likely secondary to mild COPD exacerbation (no on home 02) and mild acute HFpEF exacerbation currently on 3L nasal cannula, Continue supplemental oxygen maintain oxygen saturation between 88-92%, continue wean down Repeat chest x-ray in the morning Continue combination of DuoNebs around the clock Continue with IV Solumedrol 40 mg daily Add Symbicort inhaler Transthoracic echocardiography is ordered Cardiology following, recommending to discontinue lasix Pulmonary on consult, appreciate recommendations Chronic: Hypertension Hyperlipidemia CAD Chronic afib, on warfarin - continue home meds DVT ppx: warfarin Dictation was produced using [employer] dictation software. please excuse any grammatical, word or spelling errors. Past Medical History Past Medical History: Atrial Fibrillation, COPD, Hyperlipidemia, Hypertension Additional Past Medical History / Comment(s): hx. sigmoid mass-benign History of Any Multi-Drug Resistant Organisms: None Reported Past Surgical History: Bowel Resection, Tubal Ligation Additional Past Surgical History / Comment(s): Colonoscopy. Cardioversion, b owel resection w/colostomy, appy, fallopian tube removed, repair of ureter w/stent, cystotomy in September 2021 Past Anesthesia/Blood Transfusion Reactions: No Reported Reaction Additional Past Anesthesia/Blood Transfusion Reaction / Comment(s): NO PREVIOUS ANESTHESIA Past Psychological History: No Psychological Hx Reported Smoking Status: Current every day smoker - Past Family History Father Family Medical History: Myocardial Infarction ([place]) Additional Family Medical History / Comment(s): Father of a [place] at the age of 54yrs. Mother Family Medical History: Cancer, Diabetes Mellitus Additional Family Medical History / Comment(s): BREAST CA Sister(s) Family Medical History: Cancer Medications and Allergies Home Medications Medication Instructions Recorded Confirmed Type Atorvastatin [Lipitor] 40 mg PO HS 09/28/21 11/30/24 History Digoxin [Lanoxin] 125 mcg PO DAILY 09/28/21 11/30/24 History Metoprolol Tartrate [Lopressor] 50 mg PO BID 30 Days #120 tab 02/05/22 11/30/24 Rx Albuterol Sulfate [Ventolin HFA] 25 puff INHALATION RT-Q6H PRN 11/30/24 11/30/24 History Fluticasone Propion/Salmeterol 1 puff INHALATION RT-BID 11/30/24 11/30/24 History [Fluticasone-Salmeterol 250-50] Vitamin D3(Unknown Dose) 1 tab PO DAILY 11/30/24 11/30/24 History Warfarin [Coumadin] 2.5 mg PO SUTUTHSA@209911/30/24 11/30/24 History Warfarin [Coumadin] 5 mg PO MOWEFR@2100 11/30/24 11/30/24 History Allergies Allergy/AdvReac Type Severity Reaction Status Date / Time No Known Allergies Allergy Verified 11/30/24 20:02 Physical Exam Vitals: Vital Signs Temp Pulse Pulse Resp BP BP Pulse Ox 12/01/24 08:48 90 L 12/01/24 08:45 88 L 12/01/24 08:42 97.6 F 88 14 137/66 87 L 12/01/24 04:58 90 20 12/01/24 04:00 98.2 F 90 20 144/70 93 L 12/01/24 02:55 98.2 F 84 20 152/66 91 L 12/01/24 01:59 89 18 130/61 90 L 12/01/24 01:58 97.9 F 96 18 132/60 92 L 12/01/24 01:42 90 18 12/01/24 01:35 92 18 11/30/24 21:43 81 20 11/30/24 21:36 84 20 11/30/24 17:30 86 23 126/74 95 11/30/24 16:31 79 24 11/30/24 16:30 83 28 H 144/91 100 11/30/24 16:19 74 22 11/30/24 16:00 80 26 H 131/66 93 L 11/30/24 15:52 87 26 H 131/66 95 11/30/24 15:20 24 11/30/24 15:06 97.8 F 83 26 H 135/66 77 L Intake and Output 11/30/24 12/01/24 12/01/24 22:59 06:59 14:59 Intake Total 240 Balance 240 Intake: Oral 240 Other: Weight 61.235 kg 61.6 kg Results CBC & Chem 7: 12/01/24 06:58 12/01/24 06:58 Labs: Abnormal Lab Results - Last 24 Hours (Table) 11/30/24 11/30/24 11/30/24 Range/Units 15:54 15:54 15:54 WBC (4.50-10.00) 10*3/uL Hgb 15.5 H (12.0-15.0) g/dL Hct 49.2 H (37.2-46.3) % MCV 98.6 H (80.0-97.0) fL MCHC 31.5 L (32.0-37.0) g/dL Immature Gran # (0.00-0.04) 10*3/uL Neutrophils # (1.80-7.70) 10*3/uL Lymphocytes # (0.90-5.00) 10*3/uL Monocytes # (0.20-1.00) 10*3/uL Eosinophils # 0.43 H (0.04-0.35) 10*3/uL PT 15.5 H (10.0-12.5) sec INR 1.5 H (<1.2) Potassium 5.2 H (3.5-5.1) mmol/L BUN 18 H (7-17) mg/dL Glucose 108 H (74-99) mg/dL Troponin I (0.000-0.034) ng/mL Total Protein (6.3-8.2) g/dL 11/30/24 12/01/24 12/01/24 Range/Units 15:54 00:40 06:58 WBC 10.59 H (4.50-10.00) 10*3/uL Hgb (12.0-15.0) g/dL Hct 47.1 H (37.2-46.3) % MCV 98.3 H (80.0-97.0) fL MCHC 31.6 L (32.0-37.0) g/dL Immature Gran # 0.06 H (0.00-0.04) 10*3/uL Neutrophils # 9.83 H (1.80-7.70) 10*3/uL Lymphocytes # 0.55 L (0.90-5.00) 10*3/uL Monocytes # 0.13 L (0.20-1.00) 10*3/uL Eosinophils # 0.00 L (0.04-0.35) 10*3/uL PT (10.0-12.5) sec INR (<1.2) Potassium (3.5-5.1) mmol/L BUN (7-17) mg/dL Glucose (74-99) mg/dL Troponin I 0.056 H* 0.053 H* (0.000-0.034) ng/mL Total Protein (6.3-8.2) g/dL 12/01/24 Range/Units 06:58 WBC (4.50-10.00) 10*3/uL Hgb (12.0-15.0) g/dL Hct (37.2-46.3) % MCV (80.0-97.0) fL MCHC (32.0-37.0) g/dL Immature Gran # (0.00-0.04) 10*3/uL Neutrophils # (1.80-7.70) 10*3/uL Lymphocytes # (0.90-5.00) 10*3/uL Monocytes # (0.20-1.00) 10*3/uL Eosinophils # (0.04-0.35) 10*3/uL PT (10.0-12.5) sec INR (<1.2) Potassium (3.5-5.1) mmol/L BUN 24 H (7-17) mg/dL Glucose 159 H (74-99) mg/dL Troponin I (0.000-0.034) ng/mL Total Protein 6.1 L (6.3-8.2) g/dL Thrombosis Risk Factor Assmnt - Choose All That Apply Any of the Below Risk Factors Present?: Yes Each Factor Represents 1 point: Abnormal pulmonary function (COPD) Other Risk Factors: Yes Each Risk Factor Represents 2 Points: Age 61-74 years Other congenital or acquired thrombophilia - If yes, enter type in comment: No Thrombosis Risk Factor Assessment Total Risk Factor Score: 3 Thrombosis Risk Factor Assessment Level: Moderate Risk
[2024-12-01 17:54] LABS: INR 1.9 (<1.2); Prothrombin Time 19.8 sec (10.0-12.5)
[2024-12-01 19:38] LABS: Cholesterol 104.00 mg/dL (0.00-200.00); HDL Cholesterol 47.30 mg/dL (40.00-60.00); LDL Cholesterol,Calculated 39.8 mg/dL (0.0-131.0); Triglycerides 84.70 mg/dL (0.00-149.00); VLDL Calculation 16.94 mg/dL (5.00-40.00)
[2024-12-01 20:07] LABS: Glucose,Whole Blood 162 mg/dL (70-110)
[2024-12-01] MEDS ORDERED: WARFARIN 5 MG TAB PO SCH (21:00)
[2024-12-01] MEDS: METOPROLOL TARTRATE 50 MG TAB PO SCH (22:13)
[2024-12-01] MEDS: WARFARIN 2.5 MG TAB PO ONE (22:14)
[2024-12-02 04:51] VITALS: TEMP 96
[2024-12-02 05:42] LABS: Glucose,Whole Blood 143 mg/dL (70-110)
[2024-12-02 06:10] LABS: Basophils # (A) 0.03 10*3/uL (0.00-0.10); Basophils % (A) 0.2 %; Eosinophils # (A) 0.00 10*3/uL (0.04-0.35); Eosinophils % (A) 0.0 %; HCT 47.6 % (37.2-46.3); HGB 15.2 g/dL (12.0-15.0); Lymphocytes # (A) 0.63 10*3/uL (0.90-5.00); Lymphocytes % (A) 3.6 %; MCH 31.1 pg (27.0-32.0); MCHC 31.9 g/dL (32.0-37.0); MCV 97.3 fL (80.0-97.0); Monocytes # (A) 0.50 10*3/uL (0.20-1.00); Monocytes % (A) 2.9 %; Neutrophils # (A) 16.00 10*3/uL (1.80-7.70); Neutrophils % (A) 92.6 %; Platelet Count 251 10*3/uL (140-440); RBC 4.89 10*6/uL (4.10-5.20); RDW 15.0 % (11.5-14.5); WBC 17.28 10*3/uL (4.50-10.00)
[2024-12-02 06:19] LABS: INR 1.7 (<1.2); Partial Thromboplastin Time 23.6 sec (22.0-30.0); Prothrombin Time 17.3 sec (10.0-12.5)
[2024-12-02 06:33] LABS: ALT 18 U/L (4-34); AST 21 U/L (14-36); African American GFR (CKD) 57 (>60 ml/min/1.73 sqM); Albumin 3.7 g/dL (3.5-5.0); Alkaline Phosphatase 94 U/L (38-126); Anion Gap 7 mmol/L; Blood Urea Nitrogen 35 mg/dL (7-17); Calcium 9.2 mg/dL (8.4-10.2); Carbon Dioxide 31 mmol/L (22-30); Chloride 100 mmol/L (98-107); Glucose 137 mg/dL (74-99); Non-African American GFR(CKD) 50 (>60 ml/min/1.73 sqM); Potassium 5.3 mmol/L (3.5-5.1); Sodium 138 mmol/L (137-145); Total Protein 5.9 g/dL (6.3-8.2)
--- NOTE | 2024-12-02 07:22 | XR ---
EXAMINATION TYPE: XR chest 2V DATE OF EXAM: 12/02/2024 6:42 AM COMPARISON: Chest radiographs from 12/01/2024 TECHNIQUE: XR chest 2V Frontal and lateral views of the chest. CLINICAL INDICATION:Female, 69 years old with history of CHF exacerbation; FINDINGS: Lungs/Pleura: There is no evidence of pleural effusion, focal consolidation, or pneumothorax. Hyperi nflation and flattening of the hemidiaphragms with chronic interstitial prominence. Heart/mediastinum: Cardiomediastinal silhouette is enlarged and stable. Atherosclerotic calcificatio ns are seen in the aorta. Musculoskeletal: Multiple level degenerative disc disease changes seen throughout the spine. IMPRESSION: 1. No focal consolidation. 2. Background emphysematous changes with chronic interstitial changes. [facility], , 12/02/2024 7:20 AM
[2024-12-02 10:04] VITALS: RESP 20
[2024-12-02] MEDS: BUMETANIDE 1 MG TAB PO SCH (10:07)
[2024-12-02 11:25] LABS: Glucose,Whole Blood 129 mg/dL (70-110)
--- NOTE | 2024-12-02 12:09 | P.PN ---
Subjective Progress Note Date: 12/02/24 Principal diagnosis: Shortness of breath. Patient is a 69-year-old female with past medical history significant for chronic atrial fibrillation, hypertension, hyperlipidemia, coronary artery disease, diverticulitis, abdominal mass, bowel resection. She is a current 1 pack/day smoker, with over [id number] history. Also, noted to have severe COPD with an FEV1 33% of predicted. Presented to the emergency department yesterday afternoon with a chief complaint of shortness of breath. Found to be hypoxic with an SpO2 of 70%. She was placed on supplemental oxygen. Workup in the emergency department including a chest x-ray showing cardiomegaly and pulmonary vascular congestion. NT proBNP 3130. Remaining labs including a CBC with a WBC count of 9.2, hemoglobin 15.5, platelets 217. CMP with a sodium 139, potassium 5.2, chloride 101, serum bicarb 30, BUN 18, creatinine 0.75, glucose 108. Lactic non-elevated. Troponin 0.056. EKG: Atrial fibrillation with controlled ventricular response, rate 80 BPM, ST deviation and moderate t wave abnormality in the inferior leads. Heart catheterization from 2021 remarkable for totally occluded RCA with collaterals and 40% LAD stenosis. Medical management was recommended at that time. Echocardiogram from 2021 estimating left-ventricular ejection fraction of 55 to 60%. She states she previously followed with Dr. Mecca Perez, but more recently seeing somebody else. Patient being seen in the emergency department. On 3 L/min nasal cannula. Nondistressed. Smells of tobacco smoke. States her shortness of breath started approximately 4 days ago. Worsens with exertion. She does not routinely use her maintenance inhaler. She has been using her albuterol rescue inhaler, states this provides her with some relief. Admits occasional congested cough with frothy white sputum. Denies any sputum purulence or hemoptysis. Denies any fevers or chills. Denies any sick contacts or travel. She continues to smoke 1 pack/day. Does endorse substernal chest pain with exertion, nonradiating, which subsides with rest. None currently. She has nitroglycerin paste on. She denies any heart palpitations, syncopal events, orthopnea, lower extremity edema. Previously, started on 40 mg of IV Lasix twice daily. Additionally, loaded with IV Solu-Medrol and given multiple DuoNebs. Vitals: Temperature 97.9 F, heart rate 96 bpm, blood pressure 132/60 mmHg, nontachypneic, SPO2 recorded at 92% on 3 L/min nasal cannula. Progress note dated December 02, 2024. 69-year-old female seen in consultation yesterday. Please see the consult note above. She has a history of chronic atrial fibrillation, hypertension, hyperlipidemia, coronary disease, diverticular disease, and previous bowel resection for abdominal mass. The patient presented with history of increasing shortness of breath. She does have severe COPD with an FEV1 which is 33% of predicted. In addition, chest x-ray shows some pulmonary vascular congestion and her N-terminal proBNP was elevated at 3130. Currently, she is resting comfortably in bed. She is on 2 L of oxygen. She feels like her breathing is improved. Current labs good a white count of 17.3, hemoglobin 15.2, hematocrit 47.6, platelet count 2 51,000. Sodium 138, potassium 5.3, chlorides 100, CO2 31, BUN 35, creatinine 1.12. Glucose is 129. Chest x-ray shows emphysematous changes, no focal consolidation, and chronic interstitial changes. Objective - Vital Signs Vital signs: Vital Signs Temp 96 F L 12/02/24 04:00 Pulse 88 12/02/24 11:32 Resp 20 12/02/24 11:32 BP 133/61 12/02/24 10:03 Pulse Ox 94 L 12/02/24 10:03 FiO2 Intake & Output 12/01/24 12/02/24 12/02/24 18:59 06:59 18:59 Intake Total 476 240 40 Output Total 700 Balance -224 240 40 Weight 61.6 kg 61.7 kg Intake: Oral 476 240 40 Output: Urine 700 Other: Voiding Method Toilet Toilet # Voids 1 - Exam No acute distress, oriented 3. Currently on 2 L. No respiratory distress. HEENT examination is grossly unremarkable. Mucous membranes are moist. No oral lesions. Neck supple. Full range of motion. No adenopathy thyromegaly or neck vein distention. Cardiovascular examination reveals an irregular rhythm and rate. S1-S2 normal. No S3 or S4. No discernible murmur noted. Lungs reveal mostly clear breath sounds. Breath sounds are equal and diminished throughout. Few scattered rhonchi. No wheezes. No crackles. Breath sounds are equal. Abdomen soft bowel sounds are heard. No masses or tenderness. Extremities are intact. No cyanosis clubbing or edema. Skin is without rash or lesion. Neurologic examination is brief but nonfocal. - Labs CBC & Chem 7: 12/02/24 05:51 12/02/24 05:51 Labs: Abnormal Lab Results - Last 24 Hours (Table) 12/01/24 12/01/24 12/01/24 Range/Units 11:29 17:06 20:05 WBC (4.50-10.00) 10*3/uL Hgb (12.0-15.0) g/dL Hct (37.2-46.3) % MCV (80.0-97.0) fL MCHC (32.0-37.0) g/dL MPV (9.5-12.2) fL Immature Gran # (0.00-0.04) 10*3/uL Neutrophils # (1.80-7.70) 10*3/uL Lymphocytes # (0.90-5.00) 10*3/uL Eosinophils # (0.04-0.35) 10*3/uL PT 19.8 H (10.0-12.5) sec INR 1.9 H (<1.2) Potassium (3.5-5.1) mmol/L Carbon Dioxide (22-30) mmol/L BUN (7-17) mg/dL Creatinine (0.52-1.04) mg/dL Glucose (74-99) mg/dL POC Glucose (mg/dL) 162 H (70-110) mg/dL Total Protein (6.3-8.2) g/dL TSH 0.308 L (0.465-4.680) mIU/L 12/02/24 12/02/24 12/02/24 Range/Units 05:38 05:51 05:51 WBC 17.28 H (4.50-10.00) 10*3/uL Hgb 15.2 H (12.0-15.0) g/dL Hct 47.6 H (37.2-46.3) % MCV 97.3 H (80.0-97.0) fL MCHC 31.9 L (32.0-37.0) g/dL MPV 9.3 L (9.5-12.2) fL Immature Gran # 0.12 H (0.00-0.04) 10*3/uL Neutrophils # 16.00 H (1.80-7.70) 10*3/uL Lymphocytes # 0.63 L (0.90-5.00) 10*3/uL Eosinophils # 0.00 L (0.04-0.35) 10*3/uL PT (10.0-12.5) sec INR (<1.2) Potassium 5.3 H (3.5-5.1) mmol/L Carbon Dioxide 31 H (22-30) mmol/L BUN 35 H (7-17) mg/dL Creatinine 1.12 H (0.52-1.04) mg/dL Glucose 137 H (74-99) mg/dL POC Glucose (mg/dL) 143 H (70-110) mg/dL Total Protein 5.9 L (6.3-8.2) g/dL TSH (0.465-4.680) mIU/L 12/02/24 12/02/24 Range/Units 05:51 11:24 WBC (4.50-10.00) 10*3/uL Hgb (12.0-15.0) g/dL Hct (37.2-46.3) % MCV (80.0-97.0) fL MCHC (32.0-37.0) g/dL MPV (9.5-12.2) fL Immature Gran # (0.00-0.04) 10*3/uL Neutrophils # (1.80-7.70) 10*3/uL Lymphocytes # (0.90-5.00) 10*3/uL Eosinophils # (0.04-0.35) 10*3/uL PT 17.3 H (10.0-12.5) sec INR 1.7 H (<1.2) Potassium (3.5-5.1) mmol/L Carbon Dioxide (22-30) mmol/L BUN (7-17) mg/dL Creatinine (0.52-1.04) mg/dL Glucose (74-99) mg/dL POC Glucose (mg/dL) 129 H (70-110) mg/dL Total Protein (6.3-8.2) g/dL TSH (0.465-4.680) mIU/L Assessment and Plan Assessment: Acute CHF exacerbation, previously with preserved left ventricular ejection fraction. Acute COPD exacerbation. Acute hypoxemic respiratory failure, currently on 2 L/min nasal cannula; chest x-ray showing cardiomegaly and pulmonary vascular congestion. NT proBNP 3130. Elevated troponins, rule out non-ST elevation CO. History of coronary artery disease. Benign essential hypertension. History of hyperlipidemia. Chronic atrial fibrillation. History of abdominal mass with previous partial colectomy, partial cystectomy, left salpingectomy, appendectomy, and left ureter repair. Current ongoing tobacco dependence, with over 24-[id number]-[id number] history. Severe COPD, with FEV1 33% of predicted. Plan: Plan dated December 02, 2024. The patient is seen today in room 381. She is on 2 L. She is resting comfortably in bed. She does feel better. Her breathing is improved. She is on appropriate medications, including Symbicort, Solu-Medrol, and DuoNeb breathing treatments. She is also receiving oxygen at 2 L. She is also recei ving IV Lasix. We will continue to follow make recommendations along the way. Prognosis is guarded. The patient has been noncompliant with her medications. She is counseled about the importance of being compliant with medications. Dictation was produced using [employer] dictation software. Please excuse any grammatical, word or spelling errors. Time with Patient: Less than 30
[2024-12-02 15:16] VITALS: BP 125/59; PULSE 63
[2024-12-02 16:47] LABS: Glucose,Whole Blood 156 mg/dL (70-110)
[2024-12-02] MEDS ORDERED: WARFARIN 5 MG TAB PO ONE (18:00)
--- NOTE | 2024-12-02 18:52 | P.DS ---
Providers Date of admission: 11/30/24 21:30 Attending physician: Conchita Galvan Consults: 11/30/24 21:27 Consult Physician Routine Consulting Provider: Freddy Shelton Consult Reason/Comments: hypoxia Do you want consulting provider notified?: Yes Consult Physician Routine Consulting Provider: Ann-Marie Alaniz Consult Reason/Comments: chf Do you want consulting provider notified?: Yes Primary care physician: Adrián Farias Hospital Course: Discharge Diagnosis: Acute COPD exacerbation Hospital Course: 69 yo female with past medical history significant for COPD with an FEV1 33%, chronic atrial fibrillation on warfarin, hypertension, hyperlipidemia, coronary artery disease, diverticulitis, abdominal mass, bowel resection. She is presenting to the ER with shortness of breath. Found to be hypoxic at the time with an SpO2 of 70% on room air. She reported experiencing sudden onset of SOB 5 days ago. She reported increase in her activity prior to that due to November 26 celebration and was feeling well. She denied chest pain and palpitations intitially but noticed palpitations 3 days after which worsened progressively. Initially reluctant to attend ER but was advised by her PCP to come to seek imme diate treatment at the hospital. She reported being place on oxygen at home 3 years ago for a duration of 3 months. She cannot recall the oxygen level however and reported discontinuing the at home treatments after performing a stress test and being cleared. She reports using her albuteral rescue inhaler at home and states this has provided her with some relief. She admits occasional cough with frothy white sputum on lying down and well as occational dyspnea on exertion. She denies orthopnea. She is a current smoker of 1 pack/day, for over 50 years. While in the ER, patient NT proBNP 3130, WBC count of 9.2, hemoglobin 15.5, platelets 217, sodium 139, potassium 5.2, chloride 101, serum bicarb 30, BUN 18, creatinine 0.75, glucose 108, Lactic non-elevated and Troponin 0.056 (serial trops being perfomed and downtrending). An EKG performed indicated atrial fibrillation with controlled ventricular response, rate 80 BPM, ST deviation and moderate t wave abnormality in the inferior leads. Chest x-ray ruling out focal consolidations but positive for emphysematous changes of chronic interstitial images. Of note, patient had a cardiac catheterization from 2021 remarkable for a complete occlusion of RCA with collaterals and 40% LAD stenosis for which medical management was recommended. Patient is currently placed on 5 L of oxygen for SPO2 90%. Patient is admitted as inpatient. During the course of the hospital stay, patient was followed and evaluated by Cardiology and pulmonology. An inpatient echocardiogram obtain indicated EF 52%, left and right atrial enlargment and mild aortic stenosis. Patient was initially placed on 5L of oxygen with a SPO2 of 90%. This was titrated down to 3L with SPO2 91. Patient also received follow-up chest x-ray which showed no focal consolidation with some background emphysematous changes with chronic interstitial changes. At time of discharge patient was hemodynamically stable, per recommendations from cardiology metoprolol dosage was increased prior to discharge. Patient is discharged to home and advised follow-up with her PCP, forest technician, and project account manager. Patient previously not requiring oxygen is being sent home with oxygen. Patient also given prescription for BMP to have done as an outpatient. Pt seen and examined at bedside: No significant overnight events, no current complaints or concerns in the patient. Vital signs reviewed and stable: PHYSICAL EXAMINATION: GENERAL: The patient is alert and oriented x3, not in any acute distress. Well developed, well nourished. HEENT: Pupils are round and equally reacting to light. EOMI. No scleral icterus. No conjunctival pallor. Normocephalic, atraumatic. CARDIOVASCULAR: S1 and S2 present. PULMONARY: Chest is clear to auscultation b/l, no wheezing or crackles. ABDOMEN: Soft, nontender, nondistended, normoactive bowel sounds. No palpable organomegaly. MUSCULOSKELETAL: No joint swelling or deformity. EXTREMITIES: No cyanosis, clubbing, or pedal edema. No peripheral edema. NEUROLOGICAL: Gross neurological examination did not reveal any focal deficits. SKIN: No rashes. A total of greater than 30 minutes were spent preparing this complex discarge summary. Patient was discharged on 12/02/2024. Patient Condition at Discharge: Serious Plan - Discharge Summary Discharge Rx Participant: No New Discharge Prescriptions: Continue Digoxin [Lanoxin] 125 mcg PO DAILY Metoprolol Tartrate [Lopressor] 50 mg PO BID 30 Days #120 tab Vitamin D3(Unknown Dose) 1 tab PO DAILY Atorvastatin [Lipitor] 40 mg PO HS Warfarin [Coumadin] 2.5 mg PO SUTUTHSA@2100 Warfarin [Coumadin] 5 mg PO MOWEFR@2099 Albuterol Sulfate [Ventolin HFA] 25 puff INHALATION RT-Q6H PRN PRN Reason: Wheezing Fluticasone Propion/Salmeterol [Fluticasone-Salmeterol 250-50] 1 puff INHALATION RT-BID Discharge Medication List Atorvastatin [Lipitor] 40 mg PO HS 09/28/21 [History] Digoxin [Lanoxin] 125 mcg PO DAILY 09/28/21 [History] Metoprolol Tartrate [Lopressor] 50 mg PO BID 30 Days #120 tab 02/05/22 [Rx] Albuterol Sulfate [Ventolin HFA] 25 puff INHALATION RT-Q6H PRN 11/30/24 [History] Fluticasone Propion/Salmeterol [Fluticasone-Salmeterol 250-50] 1 puff INHALATION RT-BID 11/30/24 [History] Vitamin D3(Unknown Dose) 1 tab PO DAILY 11/30/24 [History] Warfarin [Coumadin] 2.5 mg PO SUTUTHSA@209911/30/24 [History] Warfarin [Coumadin] 5 mg PO MOWEFR@209911/30/24 [History] Follow up Appointment(s)/Referral(s): Adrián Farias MD [Primary Care Provider] - 1-2 days Patient Instructions/Handouts: Heart Failure (ER), Using Oxygen at Home (ED) Discharge Disposition: HOME SELF-CARE
[2024-12-02] MEDS ORDERED: WARFARIN 5 MG TAB PO SCH (21:00)
== END 2024-12-02 18:37 | disposition home or self-care (01) | DRG 291 ==
LOC: EC 14:27 → 3SCARD 21:30
PROVIDERS: ADMIT Hospitalist; ATTEND Hospitalist
DX: I11.0 Hypertensive heart disease with heart failure (principal); I50.33 Acute on chronic diastolic (congestive) heart failure; J96.01 Acute respiratory failure with hypoxia; J44.1 Chronic obstructive pulmonary disease with (acute) exacerbation; I08.0 Rheumatic disorders of both mitral and aortic valves; I48.20 Chronic atrial fibrillation, unspecified; J45.901 Unspecified asthma with (acute) exacerbation; J43.9 Emphysema, unspecified; E78.5 Hyperlipidemia, unspecified; F17.210 Nicotine dependence, cigarettes, uncomplicated; I25.10 Atherosclerotic heart disease of native coronary artery without angina pectoris; Z79.01 Long term (current) use of anticoagulants; Z79.899 Other long term (current) drug therapy; Z93.3 Colostomy status; Z91.199 Patient's noncompliance with other medical treatment and regimen due to unspecified reason; Z82.49 Family history of ischemic heart disease and other diseases of the circulatory system
CPT/HCPCS: 36415; 71045; 71046; 80053; 80061; 83036; 83605; 83735; 83880; 84100; 84439; 84443; 84484; 85025; 85379; 85610; 85730; 87636; 93005; 93306; 94640; 94760; 96361; 96374; 96375; 96376; 99291